=== PATIENT | female | born 1960 | race African-American/Black ===

== ENCOUNTER → 2016-06-19 | Outpatient (CLI) | payer OTHER ==
--- NOTE | 2016-06-20 09:49 | MM ---
Reason for exam: screening (asymptomatic). Last mammogram was performed 1 year ago. History: Patient is postmenopausal. Benign ultrasound-guided core biopsy of the left breast, November 06, 1998. Excisional biopsy of the left breast. Physical Findings: A clinical breast exam by your physician is recommended on an annual basis and results should be correlated with mammographic findings. MG Screening Mammo w CAD Bilateral CC and MLO view(s) were taken. Prior study comparison: June 05, 2015, bilateral MG screening mammo w CAD. April 06, 2014, bilateral MG screening mammo w CAD. There are scattered fibroglandular densities. There is chronic nodularity in the left breast. No significant changes when compared with prior studies. ASSESSMENT: Benign, BI-RAD 2 RECOMMENDATION: Routine screening mammogram of both breasts in 1 year.
== END | disposition home or self-care (01) ==
LOC: RADMAMWWP 16:35
PROVIDERS: ATTEND Family Medicine
DX: Z12.31 Encounter for screening mammogram for malignant neoplasm of breast (principal)

== ENCOUNTER → 2016-07-24 | Outpatient (CLI) | payer OTHER ==
[2016-07-24 11:46] LABS: Calcium 9.7 mg/dL (8.4-10.2); Magnesium 2.3 mg/dL (1.6-2.3); Phosphorous 4.5 mg/dL (2.5-4.5); Potassium 4.4 mmol/L (3.5-5.1); Total Bilirubin 0.6 mg/dL (0.2-1.3); Total Protein 7.7 g/dL (6.3-8.2)
--- NOTE | 2016-07-24 11:58 | XR ---
EXAMINATION TYPE: XR abdomen acute w cxr DATE OF EXAM: 07/24/2016 11:41 AM COMPARISON: Chest x-ray July 25, 2015. HISTORY: Nausea for days. TECHNIQUE: Single view of the chest and 2 views of the abdomen are submitted. FINDINGS: Single view of the chest fails demonstrate evidence for acute pulmonary disease. Linear scarring lef t mid lung laterally is redemonstrated. Surgical changes right humeral head level with metallic ancho rs is again seen. Cardiac silhouette size is stable and upper limits of normal. There is no evidence for pneumoperitoneum. The bowel gas pattern is unremarkable as there is air throughout nondilated small and large bowel. G as is seen in nondistended stomach. No suspicious air fluid levels. No unusual calcifications. Scattered pelvic phleboliths are present. Surgical clips and pelvis are n oted. Fusion cages lumbosacral junction are noted. IMPRESSION: 1. No acute pulmonary process. 2. Overall nonobstructive bowel gas pattern.
== END | disposition home or self-care (01) ==
LOC: LABWHC1 10:55
PROVIDERS: ATTEND Internal Medicine
DX: R11.0 Nausea (principal); N18.2 Chronic kidney disease, stage 2 (mild); D64.9 Anemia, unspecified; E83.39 Other disorders of phosphorus metabolism; E55.9 Vitamin D deficiency, unspecified
CPT/HCPCS: 36415; 74022; 80053; 82306; 83735; 83970; 84100

== ENCOUNTER → 2016-08-01 | Outpatient (CLI) | payer OTHER ==
--- NOTE | 2016-08-01 13:36 | CT ---
EXAMINATION TYPE: CT brain wo con DATE OF EXAM: 08/01/2016 12:48 PM COMPARISON: Prior head CT dated 21 March 2014 HISTORY: Headache CT DLP: 1036.00 mGycm Automated exposure control for dose reduction was used. Helical acquisition through the brain FINDINGS: There is no acute intracranial hemorrhage, mass effect, or midline shift identified. The ventricles and sulci are within normal limits in size. The globes are intact and the visualized sinuses are jacky ar. IMPRESSION: No acute intracranial hemorrhage, mass effect, or midline shift is seen.
--- NOTE | 2016-08-01 14:31 | CT ---
EXAMINATION TYPE: CT chest wo con DATE OF EXAM: 08/01/2016 12:57 PM COMPARISON: CT chest without contrast HISTORY: Pulmonary scarring, tobacco use Helical acquisition through the chest without contrast Correlation to chest x-ray 24 July 2016 There is no evident lung mass. Strand-like densities at the lung bases may reflect some atelectasis o r scarring, there is a calcification present posterior to the heart on the left suggestive of a granu casper. Subcentimeter nodular density on axial image 21 as well as subpleural nodule right middle lobe image 32 anterolaterally, right lower lobe image 41 and right upper lobe image 22 are all only approx imately 3 mm in size and not calcified. There is no endobronchial lesion. Bandlike area of increased attenuation corresponding to chest x-ray abnormality is present in the left upper lobe and also in th e right upper lobe there is pleural thickening noted along the fissure laterally. The ascending aorta is borderline enlarged at 3.9 cm. No mediastinal, axillary, or hilar adenopathy. No endobronchial le natalie, pleural or pericardial effusion. Hiatal hernia noted. Degenerative disc changes in the visualiz ed spine. Upper abdomen unremarkable. IMPRESSION: Findings likely represent old granulomatous disease with some areas of scarring. Consider follow-up to assess for stability of nodules. Ascending aorta is borderline dilated. Follow-up dea sebastian.
== END | disposition home or self-care (01) ==
LOC: RADCTMAIN 12:24
PROVIDERS: ATTEND Family Medicine
DX: R51 Headache (principal); J98.4 Other disorders of lung
CPT/HCPCS: 70450; 71250

== ENCOUNTER → 2016-08-07 | Outpatient (CLI) | payer OTHER ==
--- NOTE | 2016-08-07 14:48 | MR ---
EXAMINATION TYPE: MR shoulder RT wo con DATE OF EXAM: 08/07/2016 12:40 PM COMPARISON: NONE HISTORY: Rt. shoulder pain TECHNIQUE: Multiplanar, multisequence imaging of the right shoulder is performed without contrast. FINDINGS: There is motion on the exam. Postop changes noted, susceptibility artifact may obscure deta il Rotator Cuff: Is attenuated, abnormal increased signal present within the tendon compatible with tend inopathy and likely there is at least a partial full-thickness tear. There may be some calcification present within the tendon, correlate with plain film. Acromioclavicular Joint: Postop changes are present. Glenohumeral Joint: There is marrow edema in the subchondral location of the humerus. Serpiginous low signal at the surrounding area could represent nondisplaced fracture, osteonecrosis. Labrum: The labrum appears grossly intact given limitation of non-arthrogram study. Biceps Tendon: Not well seen in its entirety Bone marrow signal: Suspect marrow edema as described, some marginal spurring suggestive of some oste oarthritic change Other: No sizable joint effusion. IMPRESSION: There are limitations to the exam. Postop change. Suspect at least a partial full-thickness tear of t he rotator cuff, abnormal signal within the humeral head at the glenohumeral joint, there is associat ed arthropathy as described. Additional findings above.
== END | disposition home or self-care (01) ==
LOC: RADMRIMAIN 11:05
PROVIDERS: ATTEND Orthopaedic Surgery Orthopaedic Surgery of the Spine
DX: M12.811 Other specific arthropathies, not elsewhere classified, right shoulder (principal); Z98.890 Other specified postprocedural states

== ENCOUNTER → 2016-10-08 | Outpatient (CLI) | payer OTHER ==
[2016-10-08 13:31] LABS: EKG EKG PERFORMED
[2016-10-08 14:32] LABS: Basophils % (A) 0 %; CH 29.8; CHCM 32.2; Eosinophils # (A) 0.1 k/uL (0-0.7); Eosinophils % (A) 2 %; HCT 50.3 % (34.0-46.0); HGB 16.7 gm/dL (11.4-16.0); Luc # (Auto) 0.14; Luc % (Auto) 2; Lymphocytes # (A) 2.2 k/uL (1.0-4.8); Lymphocytes % (A) 33 %; MCH 30.9 pg (25.0-35.0); MCHC 33.2 g/dL (31.0-37.0); Mean Platelet Volume 8.4; Monocytes # (A) 0.4 k/uL (0-1.0); Monocytes % (A) 6 %; Neutrophils # (A) 3.8 k/uL (1.3-7.7); Neutrophils % (A) 57 %; RBC 5.41 m/uL (3.80-5.40); RDW 14.8 % (11.5-15.5); WBC 6.7 k/uL (3.8-10.6); WBC (Perox) 6.84
[2016-10-08 14:48] LABS: Anion Gap 10 mmol/L; Blood Urea Nitrogen 30 mg/dL (7-17); Calcium 9.6 mg/dL (8.4-10.2); Carbon Dioxide 27 mmol/L (22-30); Chloride 106 mmol/L (98-107); Glucose 219 mg/dL (74-99); Non-African American GFR(MDRD) 33 (>60 ml/min/1.73 sqM); Potassium 4.7 mmol/L (3.5-5.1); Sodium 143 mmol/L (137-145)
== END | disposition home or self-care (01) ==
LOC: LABWHC1 13:15
PROVIDERS: ATTEND Orthopaedic Surgery
DX: Z01.812 Encounter for preprocedural laboratory examination (principal); D61.3 Idiopathic aplastic anemia; I49.49 Other premature depolarization
CPT/HCPCS: 36415; 80048; 85025; 93005

== ENCOUNTER → 2016-11-07 | Outpatient (CLI) | payer OTHER ==
[2016-11-07 13:12] LABS: CHCM 31.4; HCT 47.5 % (34.0-46.0); HDW 2.78; Hypochromasia Slight; MCH 30.5 pg (25.0-35.0); MCHC 31.6 g/dL (31.0-37.0); MCV 96.4 fL (80.0-100.0); Mean Platelet Volume 7.8; RBC 4.93 m/uL (3.80-5.40); RDW 15.2 % (11.5-15.5); WBC 6.9 k/uL (3.8-10.6)
[2016-11-07 13:59] LABS: Calcium 9.3 mg/dL (8.4-10.2); Magnesium 2.3 mg/dL (1.6-2.3); Phosphorous 3.7 mg/dL (2.5-4.5); Potassium 4.4 mmol/L (3.5-5.1); Total Bilirubin 0.3 mg/dL (0.2-1.3); Total Protein 6.4 g/dL (6.3-8.2); Uric Acid 5.7 mg/dL (3.7-7.4)
[2016-11-07 14:08] LABS: % Iron Saturation 12.3 % (20-50)
== END | disposition home or self-care (01) ==
LOC: LABWHC1 12:25
PROVIDERS: ATTEND Internal Medicine
DX: N25.81 Secondary hyperparathyroidism of renal origin (principal); D50.9 Iron deficiency anemia, unspecified; E55.9 Vitamin D deficiency, unspecified; M10.9 Gout, unspecified; N18.2 Chronic kidney disease, stage 2 (mild)
CPT/HCPCS: 36415; 80053; 82043; 82306; 82728; 83540; 83550; 83735; 83970; 84100; 84550; 85027

== ENCOUNTER 2017-05-11 07:19 | Day surgery (SDC) | payer OTHER ==
[2017-05-05 11:24] VITALS: BMI 37.1
[~2017-05-11 07:19] MED LIST: LACTATED RINGERS 1,000 ML IV SCH; LIDOCAINE 1% 20 ML VIAL (10MG/ML) FOR IV START INTRADERMA PRN
[2017-05-11 07:35] VITALS: TEMP 97.7
[2017-05-11 07:39] LABS: Glucose,Whole Blood 141 mg/dL (75-99)
[2017-05-11] MEDS ORDERED: LIDOCAINE 1% INJ 10MG/ML (20 ML MDV) ONE (08:46)
[2017-05-11] MEDS ORDERED: PROPOFOL 10 MG/ML 20 ML VIAL IV ONE (08:46)
[2017-05-11 09:28] VITALS: RESP 16
--- NOTE | 2017-05-11 09:34 | P.PCN ---
Date of Procedure: 05/11/17 Procedure(s) Performed: procedures notes: 1. Esophagogastroduodenoscopy and biopsy. 2. Colonoscopy. Preoperative diagnosis: Nausea and history of polyps. Postoperative diagnosis: 1. Small sliding hiatal hernia with possible Kerry esophagitis. 2. Mild gastritis and duodenitis. 3. Diverticulosis of the colon with poor preparation but no obvious polyps or tumors. Preparation: HalfLytely prep. Sedation: Was provided by anesthesia. Brief clinical history: The patient is a 57-year-old female with history of diabetes mellitus and reflux disease who has been having issues with nausea for the last several months. In addition, she has history of colon polyps and her last exam was in 2012. This evaluation is to assess for esophagitis, complicated reflux disease or colon neoplasia or other pathology. Procedure: With the patient on her left lateral decubitus position and after informed consent and adequate sedation, I passed the Olympus-GIF 160 video upper endoscope through the cricopharyngeus down the esophagus. GE junction was around 40 cm from the incisors and there was a small sliding hiatal hernia. The esophagus showed minimal erythema and occasional small sticky white exudate raising the possibility of Kerry esophagitis. No ulcers, erosions, strictures or Siddiqui's esophagus. The endoscope was then passed into the stomach which was insufflated with air and inspected in detail including the retroflex view in the cardia. There was some mottling and erythema in the antrum but no ulcers or erosions. Pyloric channel did not show any ulcers. Duodenal bulb, post bulbar area and descending duodenum showed minimal erythema and submucosal hemorrhage but no ulcers, erosions or bleeding. I obtained biopsies from the duodenum, antrum and esophagus then the endoscope was withdrawn and I proceeded with the colonoscopy. Perianal area did not show any fissures or fistulas. There were no masses felt on digital rectal examination. The Olympus CFQ 160L video colonoscope was then inserted in the rectum in the usual fashion and advanced to the cecum. Unfortunately, the preparation was poor and there was fecal material and fecal debris present even on the right side and cecum. Where visualized, the mucosa appeared healthy. There were no obvious polyps or tumors. Multiple diverticular orifices were seen scattered along the length of the bowel, mostly small in size with no evidence of acute diverticulitis or strictures. I retroflexed the endoscope in the rectum before the endoscope was withdrawn. The patient tolerated the procedure well. Plan: The patient was reassured. Will await biopsy results. In light of her poor preparation, I am recommending repeat colonoscopy in 2-3 years after 2-day preparation. She will follow-up with you as planned.
[2017-05-11 10:01] VITALS: BP 177/111; PULSE 55
== END 2017-05-11 10:24 | disposition home or self-care (01) ==
LOC: ORWHC2ENDO 07:19
DX: Z12.11 Encounter for screening for malignant neoplasm of colon (principal); K29.50 Unspecified chronic gastritis without bleeding; K20.0 Eosinophilic esophagitis; K44.9 Diaphragmatic hernia without obstruction or gangrene; K29.80 Duodenitis without bleeding; K57.30 Diverticulosis of large intestine without perforation or abscess without bleeding; Z86.010 Personal history of colon polyps; J44.9 Chronic obstructive pulmonary disease, unspecified; I10 Essential (primary) hypertension; E11.9 Type 2 diabetes mellitus without complications; E78.5 Hyperlipidemia, unspecified; M19.90 Unspecified osteoarthritis, unspecified site; K21.9 Gastro-esophageal reflux disease without esophagitis; Z72.0 Tobacco use; Z79.4 Long term (current) use of insulin; Z79.891 Long term (current) use of opiate analgesic; Z79.899 Other long term (current) drug therapy; Z88.0 Allergy status to penicillin; Z88.8 Allergy status to other drugs, medicaments and biological substances
CPT/HCPCS: 88305; 88312; 88342; 43239; J2001; J2704; G0105

== ENCOUNTER 2017-07-01 13:25 | Emergency (ER) | payer OTHER ==
[2017-07-01 13:39] VITALS: RESP 18
[2017-07-01] MEDS ORDERED: SODIUM CHLORIDE 0.9% 1,000 ML IV ONE (14:13)
[2017-07-01] MEDS ORDERED: METOCLOPRAMIDE 5 MG/ML 2 ML VIAL IVP STA (14:13)
[2017-07-01] MEDS ORDERED: diphenhydrAMINE 50 MG/ML 1 ML VIAL IVP STA (14:13)
--- NOTE | 2017-07-01 14:21 | ED ---
Headache HPI - General Chief Complaint: Headache Stated Complaint: Headache Time Seen by Provider: 07/01/17 13:58 Mode of arrival: ambulatory Limitations: no limitations - History of Present Illness Initial Comments: Is a 49-year-old female with a history of diabetes, hypertension who presents him in [facility] for headache. She states that the headache is bifrontal and radiates to the posterior head. She states is been present for about a month. She states that she's been trying to take her pain medications at home however this has not improved her symptoms. She did take some of her friend's Excedrin which seemed to improve the headache but then it just came back. She admits to some photophobia however no phonophobia. She denies any focal weakness in her extremities however does admit to some generalized fatigue. She states about 4 or 5 days ago she went to her doctor's office and when she came home she got very dizzy and fell to the ground. She states that she hit the back of her head and this made her headache worse. She states that she did not lose consciousness or have a syncopal event. She states that she just got dizzy at the time she denies any chest pain or shortness of breath. No vomiting but does admit to intermittent nausea. States that she does not have a history of migraines however looking back in the chart she does have a visit for a migraine headache in the past. - Related Data Home Medications Medication Instructions Recorded Confirmed Gabapentin [Neurontin] 400 mg PO BID 05/21/15 07/01/17 HYDROcodone/APAP 10-325MG [[place] 1 tab PO Q6HR PRN 05/21/15 07/01/17 10-325] amLODIPine [Norvasc] 10 mg PO DAILY 05/21/15 07/01/17 glipiZIDE [Glucotrol] 5 mg PO AC-BID 05/21/15 07/01/17 Atorvastatin [Lipitor] 40 mg PO HS 11/22/15 07/01/17 Lisinopril 40 mg PO DAILY 05/05/17 07/01/17 Metoprolol Tartrate [Lopressor] 50 mg PO BID 05/05/17 07/01/17 Ranitidine HCl 150 mg PO BID 05/05/17 07/01/17 Albuterol Inhaler [Ventolin Hfa 1 - 2 puff INHALATION RT-Q6H PRN 07/01/17 Inhaler] Previous Rx's Medication Instructions Recorded Butalb/Acetaminophen/Caffeine 1 - 2 cap PO Q4HR #10 cap 07/01/17 [Fioricet 50-300-40 mg Capsule] Allergies Allergy/AdvReac Type Severity Reaction Status Date / Time amoxicillin [Amoxicillin] Allergy Rash/Hives Verified 07/01/17 14:25 latanoprost AdvReac blurry Verified 07/01/17 14:25 vision steroids AdvReac affected Uncoded 07/01/17 13:35 eyes Review of Systems ROS Statement: Those systems with pertinent positive or pertinent negative responses have been documented in the HPI. ROS Other: All systems not noted in ROS Statement are negative. Past Medical History Past Medical History: COPD, Diabetes Mellitus, Eye Disorder, GERD/Reflux, Hyperlipidemia, Hypertension, Osteoarthritis (OA) Additional Past Medical History / Comment(s): spondolysis, , blurry vision & eye problems ?related to diabetes History of Any Multi-Drug Resistant Organisms: None Reported Past Surgical History: Back Surgery, Hysterectomy, Orthopedic Surgery Additional Past Surgical History / Comment(s): RT shoulder surgery, LT arthroscopy knee. COLONOSCOPY. BACK SX X 2 Past Anesthesia/Blood Transfusion Reactions: No Reported Reaction Past Psychological History: No Psychological Hx Reported Smoking Status: Former smoker Past Alcohol Use History: Occasional Past Drug Use History: None Reported - Past Family History Mother Family Medical History: No Reported History General Exam - General Exam Comments Initial Comments: Constitutional: Awake alert Appears comfortable Head: Normocephalic atraumatic , no obvious signs of head trauma Eyes: no conjunctival injection No scleral icterus EOMI, pupils are 3 mm and reactive bilaterally Neck: No JVD Supple, there is bilateral paraspinal tenderness without midline tenderness Heart: Regular rate rhythm normal S1-S2 no murmurs Lungs: Clear to auscultation bilaterally No wheezing No rales Abdomen: Soft nondistended nontender Extremities: Non edematous DP pulses intact Radial pulses intact Neuro: A&Ox3, cranial nerves II through XII are grossly intact, 5 out of 5 strength in upper and lower extremities bilaterally, sensation intact in all extremities, patient was able to get up and ambulate with normal gait No focal neurologic deficits Psych: Appropriate mood and affect Limitations: no limitations Course Vital Signs 07/01/17 07/01/17 13:35 16:43 Temperature 99.2 F 98.1 F Pulse Rate 92 83 Respiratory 18 18 Rate Blood Pressure 174/101 156/93 O2 Sat by Pulse 95 93 L Oximetry Medical Decision Making - Medical Decision Making This is a 57-year-old female presents emergency department for a headache for the last month. The patient had no focal neurologic deficits on examination. CT the head and neck were negative. Patient felt improved after medications. Going to send her home with a few Fioricet that she can use when necessary. She is to follow-up with her primary doctor. If she has worsening or changing symptoms she can return emergency Department. All questions were answered. - Lab Data Result diagrams: 07/01/17 14:41 07/01/17 14:41 Lab Results 07/01/17 07/01/17 07/01/17 Range/Units 14:41 14:41 16:00 WBC 4.7 (3.8-10.6) k/uL RBC 5.38 (3.80-5.40) m/uL Hgb 15.3 (11.4-16.0) gm/dL Hct 50.9 H (34.0-46.0) % MCV 94.7 (80.0-100.0) fL MCH 28.5 (25.0-35.0) pg MCHC 30.1 L (31.0-37.0) g/dL RDW 16.2 H (11.5-15.5) % Plt Count 298 (150-450) k/uL Neutrophils % 63 % Lymphocytes % 28 % Monocytes % 6 % Eosinophils % 2 % Basophils % 0 % Neutrophils # 2.9 (1.3-7.7) k/uL Lymphocytes # 1.3 (1.0-4.8) k/uL Monocytes # 0.3 (0-1.0) k/uL Eosinophils # 0.1 (0-0.7) k/uL Basophils # 0.0 (0-0.2) k/uL Hypochromasia Marked Poikilocytosis Moderate Anisocytosis Slight Sodium 139 (137-145) mmol/L Potassium 5.0 (3.5-5.1) mmol/L Chloride 102 (98-107) mmol/L Carbon Dioxide 31 H (22-30) mmol/L Anion Gap 6 mmol/L BUN 13 (7-17) mg/dL Creatinine 0.98 (0.52-1.04) mg/dL Est GFR (MDRD) Af Amer >60 (>60 ml/min/1.73 sqM) Est GFR (MDRD) Non-Af 58 (>60 ml/min/1.73 sqM) Glucose 332 H (74-99) mg/dL Calcium 9.2 (8.4-10.2) mg/dL Magnesium 1.9 (1.6-2.3) mg/dL Total Bilirubin 0.8 (0.2-1.3) mg/dL AST 28 (14-36) U/L ALT 33 (9-52) U/L Alkaline Phosphatase 112 (38-126) U/L Total Protein 6.5 (6.3-8.2) g/dL Albumin 3.5 (3.5-5.0) g/dL Urine Color Yellow Urine Appearance Clear (Clear) Urine pH 7.0 (5.0-8.0) Ur Specific [place] 1.021 (1.001-1.035) Urine Protein 3+ H (Negative) Urine Glucose (UA) 4+ H (Negative) Urine Ketones Negative (Negative) Urine Blood Negative (Negative) Urine Nitrite Negative (Negative) Urine Bilirubin Negative (Negative) Urine Urobilinogen <2.0 (<2.0) mg/dL Ur Leukocyte Esterase Negative (Negative) Urine RBC 1 (0-5) /hpf Urine WBC 8 H (0-5) /hpf Ur Squamous Epith Cells 2 (0-4) /hpf Hyaline Casts 4 H (0-2) /lpf Urine Mucus Rare H (None) /hpf Disposition Clinical Impression: Headache Disposition: HOME SELF-CARE Condition: Stable Instructions: Acute Headache (ED) Prescriptions: Butalb/Acetaminophen/Caffeine [Fioricet 50-300-40 mg Capsule] 1 - 2 cap PO Q4HR #10 cap Referrals: Leeanne Ocampo MD [Primary Care Provider] - 1-2 days
[2017-07-01 15:03] LABS: ALT 33 U/L (9-52); AST 28 U/L (14-36); Albumin 3.5 g/dL (3.5-5.0); Alkaline Phosphatase 112 U/L (38-126); Anion Gap 6 mmol/L; Blood Urea Nitrogen 13 mg/dL (7-17); Calcium 9.2 mg/dL (8.4-10.2); Carbon Dioxide 31 mmol/L (22-30); Chloride 102 mmol/L (98-107); Glucose 332 mg/dL (74-99); Magnesium 1.9 mg/dL (1.6-2.3); Sodium 139 mmol/L (137-145); Total Bilirubin 0.8 mg/dL (0.2-1.3); Total Protein 6.5 g/dL (6.3-8.2)
--- NOTE | 2017-07-01 15:32 | CT ---
EXAMINATION TYPE: CT brain jose m klein DATE OF EXAM: 07/01/2017 COMPARISON: NONE HISTORY: Headache x 1 month. Posterior head injury [address] DLP: 1718 mGycm Automated exposure control for dose reduction was used. TECHNIQUE: CT scan of the head and cervical spine are performed without contrast. FINDINGS: There is no acute intracranial hemorrhage, mass effect, or midline shift identified. The ventricles and sulci are within normal limits in size. The globes are intact and the visualized sin uses are remarkable for inflammatory change in the left maxillary sinus, there is a brian bullosa on the left. Cervical spine is visualized in its entirety from C1 through upper thoracic levels and demonstrates s atisfactory alignment without evidence of acute fracture or dislocation. Prevertebral soft tissue ap pears within normal limits. Degenerative disc changes are noted incidentally, there is loss of yana l cervical lordosis. Loss of disc height present at 4 5 and C5-6. The C1-C2 articulation is unremarka ble. IMPRESSION: 1. There is no acute fracture or dislocation evident in the cervical spine. 2. No acute intracranial hemorrhage, mass effect, or midline shift is seen.
[2017-07-01 15:33] LABS: Anisocytosis Slight; Basophils % (A) 0 %; Eosinophils # (A) 0.1 k/uL (0-0.7); Eosinophils % (A) 2 %; HCT 50.9 % (34.0-46.0); HGB 15.3 gm/dL (11.4-16.0); Hypochromasia Marked; Lymphocytes # (A) 1.3 k/uL (1.0-4.8); Lymphocytes % (A) 28 %; MCH 28.5 pg (25.0-35.0); MCHC 30.1 g/dL (31.0-37.0); MCV 94.7 fL (80.0-100.0); Mean Platelet Volume 8.2; Monocytes # (A) 0.3 k/uL (0-1.0); Monocytes % (A) 6 %; Neutrophils # (A) 2.9 k/uL (1.3-7.7); Neutrophils % (A) 63 %; Platelet Count 298 k/uL (150-450); Poikilocytosis Moderate; RBC 5.38 m/uL (3.80-5.40); RDW 16.2 % (11.5-15.5); WBC 4.7 k/uL (3.8-10.6)
[2017-07-01] MEDS ORDERED: KETOROLAC 30 MG/ML 1 ML VIAL IVP STA (15:41)
[2017-07-01 16:14] LABS: Appearance,Urine Clear (Clear); Bilirubin,Urine Negative (Negative); Blood,Urine Negative (Negative); Color,Urine Yellow; Glucose,Urine (UA) 4+ (Negative); Hyaline Casts,Urine 4 /lpf (0-2); Ketones,Urine Negative (Negative); Leukocyte Esterase,Urine Negative (Negative); Mucus,Urine Rare /hpf; Nitrite,Urine Negative (Negative); Protein,Urine 3+ (Negative); RBC,Urine 1 /hpf (0-5); Specific Gravity,Urine 1.021 (1.001-1.035); Squamous Epithelial Cell,Urine 2 /hpf (0-4); Urobilinogen,Urine <2.0 mg/dL (<2.0); WBC,Urine 8 /hpf (0-5)
[2017-07-01 16:44] VITALS: BP 156/93; PULSE 83; TEMP 98.1
== END 2017-07-01 16:43 | disposition home or self-care (01) ==
LOC: EC 13:25
DX: R51 Headache (principal); E11.9 Type 2 diabetes mellitus without complications; K21.9 Gastro-esophageal reflux disease without esophagitis; E78.5 Hyperlipidemia, unspecified; I10 Essential (primary) hypertension; Z87.891 Personal history of nicotine dependence; Z88.0 Allergy status to penicillin; Z88.8 Allergy status to other drugs, medicaments and biological substances; Z79.84 Long term (current) use of oral hypoglycemic drugs; Z79.899 Other long term (current) drug therapy
CPT/HCPCS: 36415; 80053; 83735; 85025; 81001; 72125; 70450; 99284; 96374; 96375 ×2; 96361; J1200; J2765; J1885

== ENCOUNTER → 2017-10-02 | Outpatient (CLI) | payer OTHER ==
--- NOTE | 2017-10-02 15:48 | MR ---
EXAMINATION TYPE: MR brain wo con DATE OF EXAM: 10/02/2017 COMPARISON: Prior MRI brain June 02, 2014. CT brain July 01, 2017. HISTORY: Chronic intractable headache per order with left-sided hearing loss per patient. TECHNIQUE: Multiplanar, multisequence imaging of the brain and brainstem is performed without IV cont rast. FINDINGS: Diffusion weighted images demonstrate no evidence of a recent infarct or other diffusion abnormality. There is no worrisome extra-axial fluid collection. The ventricular system and cisternal spaces are normal in size and appearance. The brain volume is age appropriate. There are scattered foci of T2 h yperintensity seen throughout the periventricular, deep, and superficial white matter. Approximately 40-50 scattered small lesions are now identified. There is definitive progression from 2014 study not ed. Cerebellar lesions are felt artifactual on FLAIR images. Midline structures demonstrate normal morphology. The craniocervical junction appears within normal limits. Normal vascular flow voids are present. There is persistent mild to moderate mucosal thickeni ng in the left maxillary sinus redemonstrated otherwise paranasal sinuses are clear. IMPRESSION: Fairly moderate nonspecific white matter changes have progressed since 2014 MRI. Differen tial includes sequela of ischemic change related to product of migraine headaches. Other etiologies a re not excluded. Stable chronic left maxillary sinus disease. No additional new findings identified.
== END ==
LOC: RADMRIMAIN 14:49
PROVIDERS: ATTEND Family Medicine
DX: R90.82 White matter disease, unspecified (principal); J32.0 Chronic maxillary sinusitis
CPT/HCPCS: 70551

== ENCOUNTER → 2017-12-14 | Outpatient (CLI) | payer OTHER ==
[2017-12-14 18:37] LABS: Total Protein,CSF 42 mg/dL (12-60)
[2017-12-14 18:57] LABS: Appearance,CSF Clear; CSF Tube Number 4
[2017-12-14 20:08] LABS: Red Blood Cell,CSF 0 u/L (0-10)
[2017-12-14 20:09] LABS: Nucleated Cells, CSF 3 u/L (0-5)
== END | disposition home or self-care (01) ==
LOC: LABWHC1 12:26
PROVIDERS: ATTEND Psychiatry & Neurology Pain Medicine
DX: R90.82 White matter disease, unspecified (principal)
CPT/HCPCS: 36415; 82040; 82042; 82784; 83873; 83916; 84157; 87476; 89050

== ENCOUNTER → 2018-01-14 | Outpatient (CLI) | payer OTHER ==
--- NOTE | 2018-01-15 08:47 | MR ---
MRI CERVICAL SPINE: CLINICAL HISTORY: Cervicalgia per order. Headache with neck pain for one year causing pain or weaknes s into both arms per patient. TECHNIQUE: Multiplanar, multisequence imaging of the cervical spine is performed without IV contrast. COMPARISON: MRI cervical spine March 17, 2016. CT cervical spine July 01, 2017. FINDINGS: Exam noted suboptimal due to patient motion despite attempted repeated sequences. Coronal images redemonstrates slight dextroconvex scoliotic curvature centered near cervicothoracic junction. Sagittal images of the cervical spine show the craniocervical junction to remain within normal limit s. The cervical and upper thoracic spinal cord is normal in course, caliber, and signal. Vertebral alignment is stable and straightened. The vertebral body heights are normal. Mild disc space narrow ing C4-C5 and C5-C6 levels are seen. Posterior disc herniation C4-C5 through C6-C7 levels are redemon strated on sagittal images without significant progression. The bone marrow signal intensity is withi n normal limits. Mild multilevel anterior spurring is redemonstrated. Axial images show the C2-C3 and C3-C4 levels to remain within normal limits. Axial images at C4-C5 level redemonstrate broad-based posterior disc protrusion effacing anterior the subhash sac and causing asymmetric moderate left and mild right-sided neural foraminal narrowing. No sign ificant change from prior studies. Axial images at C5-C6 level show broad disc bulge with right paracentral disc protrusion component ef facing anterior thecal sac and causing [id number] bilateral neural foraminal narrowing. No sign ificant change from prior studies. Axial images at C6-C7 level redemonstrated right paracentral disc protrusion effacing anterior latera l thecal sac, bilateral neural foramina are patent. No significant change from prior. Axial images at C7-T1 level remain within normal limits. IMPRESSION: Reversal of normal cervical curvature with multilevel degenerative changes C4-C5 through C6-C7 levels redemonstrated. No significant change from prior MRI or CT.
--- NOTE | 2018-01-15 09:37 | MR ---
EXAMINATION TYPE: MR lumbar spine wo/w con DATE OF EXAM: 01/14/2018 COMPARISON: NONE HISTORY: Lumbago per order. Pain for one year into left lower extremity per patient with history of p rior surgery. TECHNIQUE: Multiplanar, multisequence images of the lumbar spine is performed without and with IV contrast, util izing 10 mL intravenous Gadavist FINDINGS: Sagittal images of the lumbar spine show vertebral body heights and alignment to appear sat isfactory. There is artifact from disc material L5-S1 level. Superior to this the intervertebral disc s demonstrate normal heights and hydration. No suspicious posterior disc herniations are evident. Pos terior scar tissue lower lumbar spine is noted. The conus medullaris is slightly lower in position en ding superior L2 level without abnormal signal. Cannot exclude focus of abnormal signal inferior T11 level spinal cord sagittal image 8. No suspicious clumping of lumbosacral nerve roots is present. The bone marrow signal intensity is within normal limits. No significant spurring is present. Tiny poste rior disc herniation effaces anterior thecal sac at T11-T12 level sagittal image 8. No suspicious pos tcontrast enhancement is noted. Axial images show the T12-L1, L1-L2, L2-L3, and L3-L4 levels all to appear within normal limits. Axial images at the L4-L5 level show moderate right greater than left facet arthropathy and ligamentu m flavum hypertrophy effacing posterior lateral thecal sac prominent axial image 10 and sagittal imag e 8. No disc herniation is present. There is mild to moderate left greater than right neural foramina l narrowing due to facet arthropathy. Axial images at L5-S1 level show bilateral laminectomy defects. Spinous process remains present. Enha ncing surrounding scar tissue around spinal canal is noted. Spinal canal is grossly preserved. Artifa ct from disc spacer is seen. Bilateral neural foramina are felt patent. No suspicious retroperitoneal findings are seen. IMPRESSION: Postsurgical change L5-S1 level with satisfactory alignment. Prominent facet arthropathy bilaterally at L4-L5 level causes posterior spinal canal effacement and bilateral neural foraminal na rrowing.
== END | disposition home or self-care (01) ==
LOC: RADMRIMAIN 11:02
PROVIDERS: ATTEND Psychiatry & Neurology Neurology
DX: M99.73 Connective tissue and disc stenosis of intervertebral foramina of lumbar region (principal); M46.96 Unspecified inflammatory spondylopathy, lumbar region; M47.812 Spondylosis without myelopathy or radiculopathy, cervical region; Z98.890 Other specified postprocedural states
CPT/HCPCS: 82565; 84520; 72141; 72158; 36415; A9581

== ENCOUNTER → 2019-04-11 | Outpatient (CLI) | payer OTHER ==
--- NOTE | 2019-04-13 09:22 | MM ---
Reason for exam: screening (asymptomatic). Last mammogram was performed 2 years and 10 months ago. History: Patient is postmenopausal. Benign ultrasound-guided core biopsy of the left breast, November 06, 1998. Excisional biopsy of the left breast. Physical Findings: A clinical breast exam by your physician is recommended on an annual basis and results should be correlated with mammographic findings. MG Screening Mammo w CAD Bilateral CC and MLO view(s) were taken. Prior study comparison: June 19, 2016, bilateral MG screening mammo w CAD. June 05, 2015, bilateral MG screening mammo w CAD. There are scattered fibroglandular densities. There is chronic nodularity in the left breast. No significant changes when compared with prior studies. ASSESSMENT: Benign, BI-RAD 2 RECOMMENDATION: Routine screening mammogram of both breasts in 1 year.
== END | disposition home or self-care (01) ==
LOC: RADMAMWWP 13:20
PROVIDERS: ATTEND Nurse Practitioner
DX: Z12.31 Encounter for screening mammogram for malignant neoplasm of breast (principal)
CPT/HCPCS: 77067

== ENCOUNTER 2020-08-20 16:07 | Emergency (ER) | payer OTHER ==
[2020-08-20 18:09] LABS: Anisocytosis Slight; Basophils % (A) 0 %; Eosinophils % (A) 1 %; HCT 42.1 % (34.0-46.0); HGB 12.5 gm/dL (11.4-16.0); Hypochromasia Marked; Lymphocytes # (A) 1.1 k/uL (1.0-4.8); Lymphocytes % (A) 17 %; MCH 26.1 pg (25.0-35.0); MCHC 29.7 g/dL (31.0-37.0); MCV 87.9 fL (80.0-100.0); Mean Platelet Volume 10.2; Monocytes # (A) 0.3 k/uL (0-1.0); Monocytes % (A) 5 %; Neutrophils # (A) 4.7 k/uL (1.3-7.7); Neutrophils % (A) 76 %; Platelet Count 236 k/uL (150-450); Poikilocytosis Slight; RBC 4.78 m/uL (3.80-5.40); RDW 17.1 % (11.5-15.5); WBC 6.2 k/uL (3.8-10.6)
[2020-08-20] MEDS ORDERED: LABETALOL SYRINGE 5 MG/ML IVP STA ×2 (18:12→19:11)
[2020-08-20 18:13] LABS: C Reactive Protein 15.2 mg/L (<10.0); Calcium 9.2 mg/dL (8.4-10.2); Potassium 4.7 mmol/L (3.5-5.1); Total Bilirubin 0.5 mg/dL (0.2-1.3)
--- NOTE | 2020-08-20 18:16 | ED ---
General Adult HPI - General Source: patient Mode of arrival: wheelchair Limitations: no limitations <Luciana Barber - Last Filed: 08/20/20 18:15> <Panda Randhawa - Last Filed: 08/20/20 19:48> - General Chief complaint: Recheck/Abnormal Lab/Rx Stated complaint: breast/facial/feet swelling Time Seen by Provider: 08/20/20 17:22 - History of Present Illness Initial comments: Patient is a 60-year-old female, with history of COPD, diabetes, hypertension, presenting to the emergency Department with complaints of swelling of her left breast 1 month. She states she was recently hospitalized at [facility] for COPD exacerbation, they did give her IV steroids which typically does make her swell over the swelling of the left breast has been going on before that. She denies any injuries or trauma to the breast. She denies any fever or chills, no drainage and she is aware of. She states that over the past months she feels like it is getting bigger and the weight on her chest sometimes causes her to have shortness of breath. She denies any chest pain or shortness of breath at this time, no other complaints. Upon arrival to the ER, she is afebrile, blood pressure is 488235, she states she has not taken any of her hypertension medications today. (Luciana Barber) - Related Data Home Medications Medication Instructions Recorded Confirmed Gabapentin [Neurontin] 400 mg PO BID 05/21/15 07/01/17 HYDROcodone/APAP 10-325MG [[place] 1 tab PO Q6HR PRN 05/21/15 07/01/17 10-325] amLODIPine [Norvasc] 10 mg PO DAILY 05/21/15 07/01/17 glipiZIDE [Glucotrol] 5 mg PO AC-BID 05/21/15 07/01/17 Atorvastatin [Lipitor] 40 mg PO HS 11/22/15 07/01/17 Metoprolol Tartrate [Lopressor] 50 mg PO BID 05/05/17 07/01/17 Ranitidine HCl 150 mg PO BID 05/05/17 07/01/17 lisinopriL 40 mg PO DAILY 05/05/17 07/01/17 Albuterol Inhaler (Mhu) [Ventolin 1 - 2 puff INHALATION RT-Q6H PRN 07/01/17 07/01/17 Hfa Inhaler] Previous Rx's Medication Instructions Recorded Butalb/Acetaminophen/Caffeine 1 - 2 cap PO Q4HR #10 cap 07/01/17 [Fioricet 50-300-40 mg Capsule] Cephalexin [Keflex] 500 mg PO Q6HR #40 cap 08/20/20 Allergies Allergy/AdvReac Type Severity Reaction Status Date / Time amoxicillin [Amoxicillin] Allergy Rash/Hives Verified 08/20/20 16:13 latanoprost AdvReac blurry Verified 08/20/20 16:13 vision steroids AdvReac affected Uncoded 08/20/20 16:13 eyes Review of Systems ROS Other: All systems not noted in ROS Statement are negative. <Luciana Barber - Last Filed: 08/20/20 18:15> ROS Other: All systems not noted in ROS Statement are negative. <Panda Randhawa - Last Filed: 08/20/20 19:48> ROS Statement: Those systems with pertinent positive or pertinent negative responses have been documented in the HPI. Past Medical History Past Medical History: COPD, Diabetes Mellitus, Eye Disorder, GERD/Reflux, Hyperlipidemia, Hypertension, Osteoarthritis (OA) Additional Past Medical History / Comment(s): spondolysis, , blurry vision & eye problems ?related to diabetes History of Any Multi-Drug Resistant Organisms: None Reported Past Surgical History: Back Surgery, Hysterectomy, Orthopedic Surgery Additional Past Surgical History / Comment(s): RT shoulder surgery, LT arthroscopy knee. COLONOSCOPY. BACK SX X 2 Past Anesthesia/Blood Transfusion Reactions: No Reported Reaction Past Psychological History: No Psychological Hx Reported Smoking Status: Former smoker Past Alcohol Use History: Occasional Past Drug Use History: None Reported - Past Family History Mother Family Medical History: No Reported History <Luciana Barber - Last Filed: 08/20/20 18:15> General Exam Limitations: no limitations <Luciana Barber - Last Filed: 08/20/20 18:15> - General Exam Comments Initial Comments: GENERAL: Patient is well-developed and well-nourished. Patient is nontoxic and in no acute distress. HEAD: Atraumatic, normocephalic. EYES: Pupils equal round and reactive to light, extraocular movements intact, sclera anicteric, conjunctiva are normal. Eyelids were unremarkable. ENT: TMs normal, nares patent, oropharynx clear without exudates. Moist mucous membranes. NECK: Normal range of motion, supple without lymphadenopathy or JVD. LUNGS: Unlabored respirations. Breath sounds clear to auscultation bilaterally and equal. No wheezes rales or rhonchi. HEART: Regular rate and rhythm without murmurs, rubs or gallops. ABDOMEN: Soft, nontender, normoactive bowel sounds. No guarding, no rebound. No masses appreciated. : Deferred MUSCULOSKELETAL: Normal extremities with adequate strength and normal range of motion, no pitting or edema. No clubbing or cyanosis. NEUROLOGICAL: Patient is alert and oriented x 3. Motor and sensory are also intact. Cranial nerves II through XII grossly intact. Symmetrical smile. Normal speech, normal gait. PSYCH: Normal mood, normal affect. SKIN: Warm, Dry, normal turgor, no rashes. Patient has notable swelling and increase in size of her left breast when compared to the right. She is tender along the entire lateral aspect, no visible abscess or sores seen. There is no erythema, there does appear to be some warmth to the area. (Luciana Barber) Course Vital Signs 08/20/20 08/20/20 08/20/20 16:09 18:07 19:17 Temperature 98.8 F Pulse Rate 99 102 H 81 Respiratory 18 20 20 Rate Blood Pressure 204/105 224/137 183/134 O2 Sat by Pulse 95 93 L 86 L Oximetry 08/20/20 19:19 Temperature Pulse Rate Respiratory Rate Blood Pressure O2 Sat by Pulse 95 Oximetry Medical Decision Making - Lab Data Result diagrams: 08/20/20 17:53 08/20/20 17:53 <Luciana Barber - Last Filed: 08/20/20 18:15> - Lab Data Result diagrams: 08/20/20 17:53 08/20/20 17:53 <Panda Randhawa - Last Filed: 08/20/20 19:48> - Medical Decision Making Patient is a 60-year-old female here with for swelling of the left breast 1 month. No fevers, no signs of an abscess or sores. There is noticeable size di fference of the left breast when compared to the right, pain to the lateral aspect. Patient is afebrile on arrival, blood pressure is high at 204/105, she did not take any of her hypertension medications today. (Luciana Barber) Patient was endorsed to me by Mercedez LOZA the patient's ultrasound reveals evidence of cellulitis there is no definite mass. Patient was recommended to have a mammogram after treatment. Patient states he has been getting better on her buttocks but she is almost out. Patient be discharged with Keflex will follow- up with PCP, her surgeon return parameters were discussed patient agrees to plan patient was hypertensive though she did not take her pain medicines or high blood pressure medication. (Panda Randhawa) - Lab Data Lab Results 08/20/20 08/20/20 Range/Units 17:53 17:53 WBC 6.2 (3.8-10.6) k/uL RBC 4.78 (3.80-5.40) m/uL Hgb 12.5 (11.4-16.0) gm/dL Hct 42.1 (34.0-46.0) % MCV 87.9 (80.0-100.0) fL MCH 26.1 (25.0-35.0) pg MCHC 29.7 L (31.0-37.0) g/dL RDW 17.1 H (11.5-15.5) % Plt Count 236 (150-450) k/uL MPV 10.2 Neutrophils % 76 % Lymphocytes % 17 % Monocytes % 5 % Eosinophils % 1 % Basophils % 0 % Neutrophils # 4.7 (1.3-7.7) k/uL Lymphocytes # 1.1 (1.0-4.8) k/uL Monocytes # 0.3 (0-1.0) k/uL Eosinophils # 0.0 (0-0.7) k/uL Basophils # 0.0 (0-0.2) k/uL Hypochromasia Marked Poikilocytosis Slight Anisocytosis Slight ESR 9 (0-20) mm/hr Sodium 143 (137-145) mmol/L Potassium 4.7 (3.5-5.1) mmol/L Chloride 106 (98-107) mmol/L Carbon Dioxide 33 H (22-30) mmol/L Anion Gap 4 mmol/L BUN 28 H (7-17) mg/dL Creatinine 1.69 H (0.52-1.04) mg/dL Est GFR (CKD-EPI)AfAm 37 (>60 ml/min/1.73 sqM) Est GFR (CKD-EPI)NonAf 32 (>60 ml/min/1.73 sqM) Glucose 129 H (74-99) mg/dL Calcium 9.2 (8.4-10.2) mg/dL Total Bilirubin 0.5 (0.2-1.3) mg/dL AST 54 H (14-36) U/L ALT 50 H (4-34) U/L Alkaline Phosphatase 63 (38-126) U/L C-Reactive Protein 15.2 H (<10.0) mg/L Total Protein 7.0 (6.3-8.2) g/dL Albumin 4.0 (3.5-5.0) g/dL Disposition <Luciana Barber - Last Filed: 08/20/20 18:15> Is patient prescribed a controlled substance at d/c from ED?: No Time of Disposition: 19:48 <Panda Randhawa - Last Filed: 08/20/20 19:48> Clinical Impression: Cellulitis of breast, Hypertension Disposition: HOME SELF-CARE Condition: Stable Instructions (If sedation given, give patient instructions): Cellulitis (ED) Additional Instructions: Please return to the Emergency Department if symptoms worsen or any other concerns. Prescriptions: Cephalexin [Keflex] 500 mg PO Q6HR #40 cap Referrals: [facility] [Primary Care Provider] - 1-2 days Beulah Teran MD [STAFF PHYSICIAN] - 1-2 days
[2020-08-20 19:07] LABS: Erythrocyte Sedimentation Rate 9 mm/hr (0-20)
--- NOTE | 2020-08-20 19:20 | USB ---
EXAMINATION TYPE: US breast complete LT DATE OF EXAM: 08/20/2020 COMPARISON: MG CLINICAL HISTORY: pain/swelling. Pain and swelling throughout left breast x 1 month. Hx left breast b iopsy in 1998. Left breast appears very swollen. Scanned left breast complete, retroareolar area, and axillary tail. Anechoic-hypoechoic connective areas seen throughout the left breast. No distinct areas visualized that could be measured at this time within the left breast by ultrasound . Within the left axillary tail, there appears to be a hypoechoic area with hyperechoic center and vasc ular hilum seen measurin.2 x 2.3 x 0.6 cm. IMPRESSION: The findings may represent cellulitis. No definite abscess is seen. Malignancy is not ex cluded. Note: Once acute symptoms resolve, mammographic evaluation is recommended.
[2020-08-20 20:22] VITALS: BP 181/101; PULSE 76; RESP 18; TEMP 98
== END 2020-08-20 20:22 | disposition home or self-care (01) ==
LOC: EC 16:07
DX: N61.0 Mastitis without abscess (principal); I10 Essential (primary) hypertension; E11.9 Type 2 diabetes mellitus without complications; E78.5 Hyperlipidemia, unspecified; J44.1 Chronic obstructive pulmonary disease with (acute) exacerbation; K21.9 Gastro-esophageal reflux disease without esophagitis; Z79.84 Long term (current) use of oral hypoglycemic drugs; Z79.899 Other long term (current) drug therapy; Z88.0 Allergy status to penicillin; Z88.8 Allergy status to other drugs, medicaments and biological substances; Z87.891 Personal history of nicotine dependence
CPT/HCPCS: 36415; 80053; 85025; 85652; 86140; 96374; 96376; 99284

== ENCOUNTER 2020-08-23 22:32 | Inpatient (IN) | payer OTHER ==
[2020-08-23] MEDS ORDERED: ALBUTEROL NEBULIZED 2.5 MG/3 ML INHALATION STA (23:09)
--- NOTE | 2020-08-23 23:17 | ED ---
SOB HPI - General Chief Complaint: Shortness of Breath Stated Complaint: SOB Time Seen by Provider: 08/23/20 22:46 Source: patient, EMS Mode of arrival: EMS Limitations: no limitations - History of Present Illness Initial Comments: This patient is a 60-year-old woman who presents to have evaluation for dyspnea and right leg swelling. The patient states that she had been seen at [facility] and actually had been admitted in the hospital from August 06 to the . She states that she had been told she had asthma and COPD. She was discharged with albuterol, Singulair, a steroid and also antibiotics for suspected left mastitis. The patient states that while she was in the hospital she received IV fluid and steroids and it caused both of her legs to swell, and she continues to have pain and swelling of the right leg. Patient denies change in her cough. No fever or chills. No chest pain, other than related to the suspected left mastitis. MD Complaint: shortness of breath -: days(s) Severity scale (1-10): 0 Consistency: constant Improves With: nothing Worsens With: nothing Known History Of: COPD, asthma Associated Symptoms: cough Treatments Prior to Arrival: bronchodilator, other - Related Data Home Oxygen Therapy: No Home Medications Medication Instructions Recorded Confirmed HYDROcodone/APAP 10-325MG [[place] 1 tab PO Q6HR PRN 05/21/15 08/24/20 10-325] lisinopriL 40 mg PO DAILY 05/05/17 08/24/20 Albuterol Sulfate [Proair Hfa] 1 - 2 puff INHALATION RT-Q6H PRN 08/24/20 08/24/20 Baclofen 10 mg PO BID 08/24/20 08/24/20 Ergocalciferol [Vitamin D2 (1250 1,250 mcg PO Q7D 08/24/20 08/24/20 Mcg = 44719 Iu)] Fenofibrate 160 mg PO DAILY 08/24/20 08/24/20 INSULIN LISPRO (humaLOG) [humaLOG] See Protocol SQ AC-TID 08/24/20 08/24/20 Insulin Glargine [Lantus] See Protocol SQ HS 08/24/20 08/24/20 Loratadine [Claritin] 10 mg PO DAILY 08/24/20 08/24/20 Losartan Potassium 100 mg PO DAILY 08/24/20 08/24/20 Montelukast [Singulair] 10 mg PO HS 08/24/20 08/24/20 Nortriptyline [Pamelor] 25 mg PO DAILY 08/24/20 08/24/20 Pioglitazone [Actos] 30 mg PO DAILY 08/24/20 08/24/20 Polyethylene Glycol 3350 [Miralax] 17 gm PO DAILY PRN 08/24/20 08/24/20 Sennosides-Docusate Sodium 1 tab PO BID 08/24/20 08/24/20 [Senokot-S] Triamcinolone 0.025% Cream 1 applic TOPICAL DAILY PRN 08/24/20 08/24/20 [Kenalog 0.025% Cream] Verapamil HCl [Verapamil ER] 240 mg PO DAILY 08/24/20 08/24/20 cloNIDine HCL [Catapres] 0.1 mg PO TID 08/24/20 08/24/20 hydrALAZINE HCL 50 mg PO Q12H 08/24/20 08/24/20 Previous Rx's Medication Instructions Recorded Cephalexin [Keflex] 500 mg PO Q6HR #40 cap 08/20/20 Allergies Allergy/AdvReac Type Severity Reaction Status Date / Time amoxicillin [Amoxicillin] Allergy Rash/Hives Verified 08/24/20 07:03 latanoprost AdvReac blurry Verified 08/24/20 07:03 vision prednisolone AdvReac Swelling Verified 08/24/20 07:03 steroids AdvReac affected Uncoded 08/20/20 16:13 eyes Review of Systems ROS Statement: Those systems with pertinent positive or pertinent negative responses have been documented in the HPI. ROS Other: All systems not noted in ROS Statement are negative. Constitutional: Denies: fever, chills Respiratory: Reports: as per HPI, cough, dyspnea, wheezes. Denies: hemoptysis Cardiovascular: Reports: as per HPI, edema. Denies: chest pain, palpitations, orthopnea, syncope Gastrointestinal: Reports: constipation. Denies: abdominal pain, vomiting, diarrhea Genitourinary: Denies: dysuria, hematuria Musculoskeletal: Denies: back pain Skin: Denies: rash Neurological: Denies: headache, weakness, numbness Psychiatric: Denies: anxiety Past Medical History Past Medical History: COPD, Diabetes Mellitus, Eye Disorder, GERD/Reflux, Hyperlipidemia, Hypertension, Osteoarthritis (OA) Additional Past Medical History / Comment(s): spondolysis, , blurry vision & eye problems ?related to diabetes History of Any Multi-Drug Resistant Organisms: None Reported Past Surgical History: Back Surgery, Hysterectomy, Orthopedic Surgery Additional Past Surgical History / Comment(s): RT shoulder surgery, LT arthroscopy knee. COLONOSCOPY. BACK SX X 2 Past Anesthesia/Blood Transfusion Reactions: No Reported Reaction Past Psychological History: No Psychological Hx Reported Smoking Status: Former smoker Past Alcohol Use History: Rare Past Drug Use History: None Reported - Past Family History Mother Family Medical History: No Reported History General Exam Limitations: no limitations General appearance: alert, in no apparent distress Head exam: Present: atraumatic, normocephalic Eye exam: Absent: scleral icterus, conjunctival injection Neck exam: Present: normal inspection Respiratory exam: Present: wheezes, other (Exam of the left breast with CHELSIE Ferguson present, reveals that there is some moderate erythema diffusely and some moderate edema. There is not a palpable fluid collection. No discharge. No lymph node tenderness.). Absent: respiratory distress, rales, rhonchi, stridor, accessory muscle use, decreased breath sounds Cardiovascular Exam: Present: regular rate, normal rhythm, normal heart sounds. Absent: systolic murmur, diastolic murmur, rubs, gallop GI/Abdominal exam: Present: soft. Absent: distended, tenderness, guarding, rebound Extremities exam: Present: normal capillary refill, pedal edema (There is some mild edema to both feet, slightly greater on the right hand extending up to the lower calf as well.). Absent: calf tenderness Back exam: Present: normal inspection. Absent: CVA tenderness (R), CVA tenderness (L) Neurological exam: Present: alert Skin exam: Present: warm, dry, intact, normal color. Absent: rash Course Vital Signs 08/23/20 08/23/20 08/23/20 22:33 23:35 23:40 Temperature 99.7 F H Pulse Rate 103 H 100 104 H Respiratory 18 Rate Blood Pressure 163/89 O2 Sat by Pulse 91 L Oximetry 08/24/20 01:26 Temperature 99.6 F Pulse Rate 99 Respiratory 19 Rate Blood Pressure 144/83 O2 Sat by Pulse 96 Oximetry Medical Decision Making - Medical Decision Making This patient is 60-year-old woman presenting with dyspnea and with left breast swelling. Dyspnea does appear to be multifactorial at this point with suspect main component due to CHF and also some underlying COPD. Patient admitted for further workup and also to continue treatment for the suspected left mastitis versus possible breast malignancy. The patient will also have pulmonary perfusion test to rule out PE, given that her renal function does not support computed tomography scan with contrast - Lab Data Result diagrams: 08/27/20 05:42 08/28/20 06:43 Lab Results 08/23/20 08/23/20 08/23/20 Range/Units 23:14 23:14 23:14 WBC 4.5 (3.8-10.6) k/uL RBC 4.65 (3.80-5.40) m/uL Hgb 11.9 (11.4-16.0) gm/dL Hct 40.3 (34.0-46.0) % MCV 86.7 (80.0-100.0) fL MCH 25.6 (25.0-35.0) pg MCHC 29.6 L (31.0-37.0) g/dL RDW 17.2 H (11.5-15.5) % Plt Count 276 (150-450) k/uL MPV 9.3 Neutrophils % 89 % Lymphocytes % 6 % Monocytes % 3 % Eosinophils % 2 % Basophils % 0 % Neutrophils # 4.0 (1.3-7.7) k/uL Lymphocytes # 0.2 L (1.0-4.8) k/uL Monocytes # 0.1 (0-1.0) k/uL Eosinophils # 0.1 (0-0.7) k/uL Basophils # 0.0 (0-0.2) k/uL Hypochromasia Marked Poikilocytosis Slight Anisocytosis Slight PT 11.4 (9.0-12.0) sec INR 1.1 (<1.2) APTT 23.6 (22.0-30.0) sec D-Dimer 7.02 H (<0.60) mg/L FEU Sodium 143 (137-145) mmol/L Potassium 5.1 (3.5-5.1) mmol/L Chloride 108 H (98-107) mmol/L Carbon Dioxide 29 (22-30) mmol/L Anion Gap 6 mmol/L BUN 32 H (7-17) mg/dL Creatinine 1.93 H (0.52-1.04) mg/dL Est GFR (CKD-EPI)AfAm 32 (>60 ml/min/1.73 sqM) Est GFR (CKD-EPI)NonAf 28 (>60 ml/min/1.73 sqM) Glucose 157 H (74-99) mg/dL Plasma Lactic Acid Loco (0.7-2.0) mmol/L Calcium 9.0 (8.4-10.2) mg/dL Total Bilirubin 0.5 (0.2-1.3) mg/dL AST 31 (14-36) U/L ALT 25 (4-34) U/L Alkaline Phosphatase 52 (38-126) U/L Troponin I (0.000-0.034) ng/mL NT-Pro-B Natriuret Pep pg/mL Total Protein 5.8 L (6.3-8.2) g/dL Albumin 3.2 L (3.5-5.0) g/dL 08/23/20 08/23/20 08/23/20 Range/Units 23:14 23:14 23:14 WBC (3.8-10.6) k/uL RBC (3.80-5.40) m/uL Hgb (11.4-16.0) gm/dL Hct (34.0-46.0) % MCV (80.0-100.0) fL MCH (25.0-35.0) pg MCHC (31.0-37.0) g/dL RDW (11.5-15.5) % Plt Count (150-450) k/uL MPV Neutrophils % % Lymphocytes % % Monocytes % % Eosinophils % % Basophils % % Neutrophils # (1.3-7.7) k/uL Lymphocytes # (1.0-4.8) k/uL Monocytes # (0-1.0) k/uL Eosinophils # (0-0.7) k/uL Basophils # (0-0.2) k/uL Hypochromasia Poikilocytosis Anisocytosis PT (9.0-12.0) sec INR (<1.2) APTT (22.0-30.0) sec D-Dimer (<0.60) mg/L FEU Sodium (137-145) mmol/L Potassium (3.5-5.1) mmol/L Chloride (98-107) mmol/L Carbon Dioxide (22-30) mmol/L Anion Gap mmol/L BUN (7-17) mg/dL Creatinine (0.52-1.04) mg/dL Est GFR (CKD-EPI)AfAm (>60 ml/min/1.73 sqM) Est GFR (CKD-EPI)NonAf (>60 ml/min/1.73 sqM) Glucose (74-99) mg/dL Plasma Lactic Acid Loco 0.6 L (0.7-2.0) mmol/L Calcium (8.4-10.2) mg/dL Total Bilirubin (0.2-1.3) mg/dL AST (14-36) U/L ALT (4-34) U/L Alkaline Phosphatase (38-126) U/L Troponin I 0.062 H* (0.000-0.034) ng/mL NT-Pro-B Natriuret Pep 9410 pg/mL Total Protein (6.3-8.2) g/dL Albumin (3.5-5.0) g/dL - EKG Data -: EKG Interpreted by Al EKG shows normal: sinus rhythm, axis (Normal), intervals (Normal), QRS complexes (Normal), ST-T waves (Normal) Rate: normal (Rate 97 bpm) Disposition Clinical Impression: Heart failure, Hypertension, Cellulitis of breast, COPD (chronic obstructive pu lmonary disease) Disposition: ADMITTED IP TO THIS [facility] Condition: Poor
[2020-08-23 23:58] LABS: Anisocytosis Slight; Basophils % (A) 0 %; Eosinophils # (A) 0.1 k/uL (0-0.7); Eosinophils % (A) 2 %; HCT 40.3 % (34.0-46.0); HGB 11.9 gm/dL (11.4-16.0); Hypochromasia Marked; Lymphocytes # (A) 0.2 k/uL (1.0-4.8); Lymphocytes % (A) 6 %; MCH 25.6 pg (25.0-35.0); MCHC 29.6 g/dL (31.0-37.0); MCV 86.7 fL (80.0-100.0); Mean Platelet Volume 9.3; Monocytes # (A) 0.1 k/uL (0-1.0); Monocytes % (A) 3 %; Neutrophils % (A) 89 %; Platelet Count 276 k/uL (150-450); Poikilocytosis Slight; RBC 4.65 m/uL (3.80-5.40); RDW 17.2 % (11.5-15.5); WBC 4.5 k/uL (3.8-10.6)
[2020-08-24 00:07] LABS: Albumin 3.2 g/dL (3.5-5.0); Potassium 5.1 mmol/L (3.5-5.1); Total Bilirubin 0.5 mg/dL (0.2-1.3); Total Protein 5.8 g/dL (6.3-8.2)
--- NOTE | 2020-08-24 00:07 | XR ---
EXAMINATION TYPE: XR chest 2V DATE OF EXAM: 08/23/2020 COMPARISON: 07/24/2016 HISTORY: Short of breath TECHNIQUE: 2 views FINDINGS: There is pulmonary vascular congestion. There is some infiltrate left lower lobe. There is blunting of the costophrenic angles. There are no hilar masses. Thoracic aorta is atheromatous. There is question of some air in the pleural space on the lower right lateral chest wall. The right lung a pex however does not show evidence of any pneumothorax. IMPRESSION: There is evidence for new mild congestive heart failure with pleural effusions and left l ower lobe pneumonia compared to old exam. Possible small right-sided pneumothorax.. Exam limited by t he shadow of the right arm over the right ribs. Right shoulder surgery noted.
[2020-08-24 00:16] LABS: INR 1.1 (<1.2); Partial Thromboplastin Time 23.6 sec (22.0-30.0); Prothrombin Time 11.4 sec (9.0-12.0)
[2020-08-24] MEDS ORDERED: ENOXAPARIN 120 MG/0.8 ML SYRINGE SQ STA (00:51)
[2020-08-24] MEDS ORDERED: FUROSEMIDE 10 MG/ML 4 ML VIAL IV STA (00:53)
[2020-08-24] MEDS ORDERED: NITROGLYCERIN OINT 1 INCH/GM PACKET TOPICAL STA (00:53)
--- NOTE | 2020-08-24 01:36 | US ---
EXAM: US Duplex Right Lower Extremity Veins CLINICAL HISTORY: ITS.REASON US Reason: Possible DVT TECHNIQUE: Real-time duplex ultrasound scan of the right lower extremity veins integrating B-mode two-dimensional vascular structure, Doppler spectral analysis, color flow Doppler imaging and compression. COMPARISON: No relevant prior studies available. FINDINGS: Deep veins: Unremarkable. No DVT in the visualized common femoral, femoral, proximal deep femoral or popliteal veins. The veins demonstrate normal color flow, are normally compressible, with normal phasic flow and/or augmentation response. Superficial veins: Unremarkable. No thrombus in the visualized great saphenous vein. Soft tissues: Likely Oliver's cyst in the popliteal fossa measuring 3.8 cm. Mild soft tissue edema. IMPRESSION: 1. No evidence of acute DVT. 2. Likely Oliver's cyst in the popliteal fossa measuring 3.8 cm.
[2020-08-24] MEDS: FUROSEMIDE 10 MG/ML 4 ML VIAL IV SCH ×2 (02:34→16:30)
[2020-08-24] MEDS ORDERED: HYDROcodone/APAP 10-325MG 1 EACH TAB PO PRN (03:03)
[2020-08-24] MEDS ORDERED: ACETAMINOPHEN TAB 325 MG TAB PO PRN (03:04)
[2020-08-24 06:09] LABS: Glucose,Whole Blood 189 mg/dL (75-99)
[2020-08-24] MEDS: CEPHALEXIN 500 MG CAP PO SCH ×2 (06:22→12:48)
[2020-08-24] MEDS: INSULIN ASPART (NovoLOG) 100 UNIT/ML VIAL SQ SCH ×4 (06:22→19:52)
[2020-08-24] MEDS: glipiZIDE 5 MG TAB PO SCH ×2 (06:22→16:31)
[2020-08-24] MEDS ORDERED: NITROGLYCERIN OINT 1 INCH/GM PACKET TOPICAL SCH (09:00)
[2020-08-24] MEDS ORDERED: lisinopriL 20 MG TAB PO SCH (09:00)
[2020-08-24] MEDS: amLODIPine 10 MG TAB PO SCH (09:34)
[2020-08-24] MEDS: GABAPENTIN 400 MG CAP PO SCH ×2 (09:34→20:09)
[2020-08-24] MEDS: HEPARIN SODIUM,PORCINE 5,000 UNIT/ML 1 ML VIAL SQ SCH ×2 (09:34→16:31)
[2020-08-24] MEDS: METOPROLOL TARTRATE 50 MG TAB PO SCH ×2 (09:35→20:10)
--- NOTE | 2020-08-24 09:43 | NM ---
EXAMINATION TYPE: NM pul vent and perfuse DATE OF EXAM: 08/24/2020 COMPARISON: Chest x-ray 08/23/2020 HISTORY: Difficulty breathing, rule out PE TECHNIQUE: Utilizing inhalation of 37.1 mCi Tc 99m DTPA aerosol and intravenous injection of 5.2 mCi of Tc 99m MAA, ventilation and perfusion images are acquired post injection in multiple projections. FINDINGS: Perfusion is more homogenous than ventilation. Some central clumping of the radiopharmaceutical on ve ntilation imaging may be indicative of underlying COPD. No evident ventilation/perfusion mismatch. IMPRESSION: Low probability for pulmonary embolus
--- NOTE | 2020-08-24 10:41 | P.CRDCN ---
History of Present Illness History of present illness: HISTORY OF PRESENTING ILLNESS This is a pleasant 60-year-old -[place] female past medical history significant for hypertension, dyslipidemia, diabetes mellitus, COPD, chronic nicotine dependence, chronic kidney disease and obesity. 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 In [address] Khan in the office secondary to abnormal stress test and underwent a cardiac catheterization revealing normal coronary arteries with no obstructive disease. We have been asked to see in consultation for heart failure. Due to to the hospital with a three-week history of shortness of breath. She was treated at [facility] on August 09 with steroids and updrafts and thought to have an exacerbation of COPD. However the patient states she has not had stable or comfortable breathing since that time. Her breathing at times is worse with exertion. She has also noticed orthopnea and paroxysmal woken up at night short of breath. She is also concerned about lower extremity edema, worse on the right. She denies symptoms of chest pain, dizziness or palpitations. There is no old echocardiogram for review. DIAGNOSTICS EKG reveals sinus mechanism heart rate of 97 with nonspecific changes in the precordial leads. VQ scan is low probability for PE. Chest xray pleural effusions and left lower lobe pneumonia, possible small right-sided pneumothorax. Laboratory reviewed, troponin 0.062, 0.055, 0.055, WBC 4.5, hemoglobin 11.9, platelets 276, d-dimer 7.02, sodium 143, potassium 5.1, creatinine 1.93, ProBNP 9410. Current cardiac medications include lisinopril 40 mg daily although the patient does not believe she is taking this medication any more, hydralazine 50 mg twice a day, clonidine 0.1 mg 3 times a day, verapamil 240 mg daily, losartan 100 mg daily and fenofibrate. REVIEW OF SYSTEMS At the time of my exam: CONSTITUTIONAL: Denies fever or chills. CARDIOVASCULAR: Denies chest pain, shortness of breath, orthopnea, PND or palpitations. RESPIRATORY: Denies cough. GASTROINTESTINAL: Denies abdominal pain, diarrhea, constipation, nausea or vomiting. MUSCULOSKELETAL: Denies myalgias. NEUROLOGIC: Denies numbness, tingling, headacbe or weakness. ENDOCRINE: Denies fatigue, weight change, polydipsia or polyurina. GENITOURINARY: Denies burning, hematuria or urgency with micturation. HEMATOLOGIC: Denies history of anemia or bleeding. PHYSICAL EXAMINATION Blood pressure 144/72 heart rate 99 afebrile and maintaining oxygen saturation on nasal cannula. CONSTITUTIONAL: No apparent distress. Obese. HEENT: Head is normocephalic. Pupils are equal, round. Sclerae anicteric. Mucous membranes of the mouth are moist. No JVD. No carotid bruit. CHEST EXAMINATION: Rales at the left mid lobe, diminished bilaterally, faint expiratory wheezes anteriorly and no rhonchi. No chest wall tenderness is noted on palpation or with deep breathing. HEART EXAMINATION: Regular rate and rhythm. S1, S2 heard. No murmurs, gallops or rub. ABDOMEN: Soft, nontender. Positive bowel sounds. EXTREMITIES: 2+ peripheral pulses, right lower extremity 1+ pitting edema, trace edema on the left and no calf tenderness. NEUROLOGIC EXAMINATION: Patient is awake, alert and oriented x3. ASSESSMENT Acute diastolic heart failure Troponin elevation secondary to renal function Acute on chronic kidney disease Hypertension Dyslipidemia Diabetes mellitus COPD Chronic nicotine dependence Obesity, BMI 39 PLAN Obtain 2-D echocardiogram and Doppler study to assess cardiac structure and function.bmp Agree with IV diuresis as ordered in ER. Follow renal function and electrolytes in the morning. Document accurate intake and output along with daily weights. Troponin elevation is flat with no typical rise and fall pattern, likely related to renal function. Discontinue nitropaste. Initiate aspirin 81 mg daily and continue atorvastatin 40 mg daily. Medication list has to be clarified, she should not be taking losartan and lisinopril. Also unclear if she is taking lopressor or verapamil. We will continue to follow and make recommendations accordingly. Thank you kindly for this consultation. Nurse Practitioner note has been reviewed, I agree with a documented findings and plan of care. Patient was seen and examined. Past Medical History Past Medical History: COPD, Diabetes Mellitus, GERD/Reflux, Hyperlipidemia, Hypertension, Osteoarthritis (OA) Additional Past Medical History / Comment(s): spondolysis History of Any Multi-Drug Resistant Organisms: None Reported Past Surgical History: Back Surgery, Hysterectomy, Orthopedic Surgery Additional Past Surgical History / Comment(s): RT shoulder surgery, LT arthroscopy knee. COLONOSCOPY. BACK SX X 2 Past Anesthesia/Blood Transfusion Reactions: No Reported Reaction Past Psychological History: No Psychological Hx Reported Smoking Status: Current some day smoker Past Alcohol Use History: Rare Additional Past Alcohol Use History / Comment(s): pt. smokes 2 cigs/week, has smoked since age of 12 Past Drug Use History: None Reported - Past Family History Mother Family Medical History: Diabetes Mellitus Medications and Allergies Home Medications Medication Instructions Recorded Confirmed Type HYDROcodone/APAP 10-325MG [[place] 1 tab PO Q6HR PRN 05/21/15 08/24/20 History 10-325] lisinopriL 40 mg PO DAILY 05/05/17 08/24/20 History Cephalexin [Keflex] 500 mg PO Q6HR #40 cap 08/20/20 08/24/20 Rx Albuterol Sulfate [Proair Hfa] 1 - 2 puff INHALATION RT-Q6H PRN 08/24/20 08/24/20 History Baclofen 10 mg PO BID 08/24/20 08/24/20 History Ergocalciferol [Vitamin D2 (1250 1,250 mcg PO Q7D 08/24/20 08/24/20 History Mcg = 32977 Iu)] Fenofibrate 160 mg PO DAILY 08/24/20 08/24/20 History INSULIN LISPRO (humaLOG) [humaLOG] See Protocol SQ AC-TID 08/24/20 08/24/20 History Insulin Glargine [Lantus] See Protocol SQ HS 08/24/20 08/24/20 History Loratadine [Claritin] 10 mg PO DAILY 08/24/20 08/24/20 History Losartan Potassium 100 mg PO DAILY 08/24/20 08/24/20 History Montelukast [Singulair] 10 mg PO HS 08/24/20 08/24/20 History Nortriptyline [Pamelor] 25 mg PO DAILY 08/24/20 08/24/20 History Pioglitazone [Actos] 30 mg PO DAILY 08/24/20 08/24/20 History Polyethylene Glycol 3350 [Miralax] 17 gm PO DAILY PRN 08/24/20 08/24/20 History Sennosides-Docusate Sodium 1 tab PO BID 08/24/20 08/24/20 History [Senokot-S] Triamcinolone 0.025% Cream 1 applic TOPICAL DAILY PRN 08/24/20 08/24/20 History [Kenalog 0.025% Cream] Verapamil HCl [Verapamil ER] 240 mg PO DAILY 08/24/20 08/24/20 History cloNIDine HCL [Catapres] 0.1 mg PO TID 08/24/20 08/24/20 History hydrALAZINE HCL 50 mg PO Q12H 08/24/20 08/24/20 History Allergies Allergy/AdvReac Type Severity Reaction Status Date / Time amoxicillin [Amoxicillin] Allergy Rash/Hives Verified 08/24/20 07:03 latanoprost AdvReac blurry Verified 08/24/20 07:03 vision prednisolone AdvReac Swelling Verified 08/24/20 07:03 steroids AdvReac affected Uncoded 08/20/20 16:13 eyes Physical Exam Vitals: Vital Signs Temp Pulse Pulse Resp BP BP Pulse Ox 08/24/20 03:52 98.1 F 99 20 144/72 93 L 08/24/20 01:26 99.6 F 99 19 144/83 96 08/23/20 23:40 104 H 08/23/20 23:35 100 08/23/20 22:33 99.7 F H 103 H 18 163/89 91 L Intake and Output 08/23/20 08/24/20 08/24/20 22:59 06:59 14:59 Intake Total 240 240 Output Total 400 Balance -160 240 Intake: Oral 240 240 Output: Urine 400 Other: Voiding Method Toilet # Voids 1 Weight 108.862 kg 110.1 kg Results 08/23/20 23:14 08/23/20 23:14 Cardiac Enzymes 08/23/20 08/23/20 08/24/20 Range/Units 23:14 23:14 03:20 AST 31 (14-36) U/L Troponin I 0.062 H* 0.055 H* (0.000-0.034) ng/mL 08/24/20 Range/Units 05:30 AST (14-36) U/L Troponin I 0.055 H* (0.000-0.034) ng/mL Coagulation 08/23/20 Range/Units 23:14 PT 11.4 (9.0-12.0) sec APTT 23.6 (22.0-30.0) sec CBC 08/23/20 Range/Units 23:14 WBC 4.5 (3.8-10.6) k/uL RBC 4.65 (3.80-5.40) m/uL Hgb 11.9 (11.4-16.0) gm/dL Hct 40.3 (34.0-46.0) % Plt Count 276 (150-450) k/uL Comprehensive Metabolic Panel 08/23/20 Range/Units 23:14 Sodium 143 (137-145) mmol/L Potassium 5.1 (3.5-5.1) mmol/L Chloride 108 H (98-107) mmol/L Carbon Dioxide 29 (22-30) mmol/L BUN 32 H (7-17) mg/dL Creatinine 1.93 H (0.52-1.04) mg/dL Glucose 157 H (74-99) mg/dL Calcium 9.0 (8.4-10.2) mg/dL AST 31 (14-36) U/L ALT 25 (4-34) U/L Alkaline Phosphatase 52 (38-126) U/L Total Protein 5.8 L (6.3-8.2) g/dL Albumin 3.2 L (3.5-5.0) g/dL Current Medications Generic Name Dose Route Start Last Admin Trade Name Freq PRN Reason Stop Dose Admin Acetaminophen 650 mg 08/24/20 03:04 Acetaminophen Tab 325 Mg Tab PO Q4H PRN Fever Hydrocodone Bitart/Acetaminophen 1 each 08/24/20 03:03 Hydrocodone/Apap 10-325mg 1 Each Tab PO Q6HR PRN Pain Amlodipine Besylate 10 mg 08/24/20 09:00 08/24/20 09:34 Amlodipine 10 Mg Tab PO 10 mg DAILY SIERRA Administration Atorvastatin Calcium 40 mg 08/24/20 21:00 Atorvastatin 40 Mg Tab PO HS SIERRA Cephalexin 500 mg 08/24/20 06:00 08/24/20 06:22 Cephalexin 500 Mg Cap PO 500 mg Q6HR SIERRA Administration Furosemide 40 mg 08/24/20 02:15 08/24/20 02:34 Furosemide 10 Mg/Ml 4 Ml Vial IV Not Given Q12H SIERRA Gabapentin 400 mg 08/24/20 09:00 08/24/20 09:34 Gabapentin 400 Mg Cap PO 400 mg BID SIERRA Administration Glipizide 5 mg 08/24/20 07:30 08/24/20 06:22 Glipizide 5 Mg Tab PO 5 mg AC-BID SIERRA Administration Heparin Sodium (Porcine) 5,000 unit 08/24/20 08:00 08/24/20 09:34 Heparin Sodium,Porcine 5,000 Unit/Ml 1 Ml Vial SQ 5,000 unit Q8HR SIERRA Administration Insulin Aspart 0 unit 08/24/20 07:30 08/24/20 06:22 Insulin Aspart (Novolog) 100 Unit/Ml Vial SQ 3 unit ACHS SIERRA Administration Protocol Lisinopril 40 mg 08/24/20 09:00 08/24/20 09:34 Lisinopril 20 Mg Tab PO 40 mg DAILY SIERRA Administration Metoprolol Tartrate 50 mg 08/24/20 09:00 08/24/20 09:35 Metoprolol Tartrate 50 Mg Tab PO 50 mg BID SIERRA Administration Nitroglycerin 1 inch 08/24/20 09:00 08/24/20 09:35 Nitroglycerin Oint 1 Inch/Gm Packet TOPICAL 1 inch QID [facility]ERRA Administration Sodium Chloride 10 ml 08/24/20 09:00 08/24/20 09:35 Sodium Chloride 0.9% Flush 10 Ml Syringe IV 10 ml BID SIERRA Administration Intake and Output 08/23/20 08/24/20 08/24/20 22:59 06:59 14:59 Intake Total 240 240 Output Total 400 Balance -160 240 Intake: Oral 240 240 Output: Urine 400 Other: Voiding Method Toilet # Voids 1 Weight 108.862 kg 110.1 kg 08/23/20 23:14 08/23/20 23:14
--- NOTE | 2020-08-24 11:59 | ECHOF ---
Referral Reason:Heart Failure MEASUREMENTS -------- HEIGHT: 167.6 cm WEIGHT: 109.8 kg BP: IVSd: 2.1 cm (0.6 - 1.1) LVIDd: 4.3 cm (3.9 - 5.3) LVPWd: 2.0 cm (0.6 - 1.1) IVSs: 2.3 cm LVIDs: 1.8 cm LVPWs: 2.7 cm LAESV Index (A-L): 25.84 ml/m Ao Diam: 3.3 cm (2.0 - 3.7) AV Cusp: 2.5 cm (1.5 - 2.6) LA Diam: 3.1 cm (2.7 - 3.8) MV EXCURSION: 8.980 mm (> 18.000) MV EF SLOPE: 45 mm/s (70 - 150) EPSS: 0.9 cm MV E Car: 0.89 m/s MV DecT: 189 ms MV A Car: 1.17 m/s MV E/A Ratio: 0.76 RAP: 20.00 mmHg RVSP: 26.86 mmHg FINDINGS -------- Sinus rhythm. This was a technically adequate study. The left ventricular size is normal. There is severe concentric left ventricular hypertrophy. Ove rall left ventricular systolic function is normal with, an EF between 55 - 60 %. The diastolic fill ing pattern is normal for the age of the patient 13.92. The right ventricle is normal in size. Normal LA size by volume 22+/-6 ml/m2. The right atrial size is normal. The aortic valve was not well visualized. The mitral valve is normal. There is trace mitral regurgitation. The tricuspid valve appears structurally normal. Trace tricuspid regurgitation present. Right dianna tricular systolic pressure is normal at < 35 mmHg. The pulmonic valve was not well visualized. The aortic root size is normal. The inferior vena cava is dilated with no significant inspiratory collapse which is consistent estima rajinder right atrial pressure of >20 mmHg. There is a trivial pericardial effusion present. CONCLUSIONS -------- 1. There is severe concentric left ventricular hypertrophy. 2. Overall left ventricular systolic function is normal with, an EF between 55 - 60 %. 3. Normal LA size by volume 22+/-6 ml/m2. 4. The aortic valve was not well visualized. 5. There is trace mitral regurgitation. 6. Trace tricuspid regurgitation present. 7. The inferior vena cava is dilated with no significant inspiratory collapse which is consistent est imated right atrial pressure of >20 mmHg. 8. There is a trivial pericardial effusion present. [employer] SUPERVISOR: Fanta Aguirre RDCS
[2020-08-24 12:00] LABS: Glucose,Whole Blood 119 mg/dL (75-99)
[2020-08-24] MEDS: ASPIRIN 81 MG PO SCH (12:48)
[2020-08-24 13:58] VITALS: BMI 39.2
[2020-08-24] MEDS ORDERED: ALBUTEROL NEBULIZED 2.5 MG/3 ML INHALATION PRN (14:26)
[2020-08-24] MEDS ORDERED: polyethylene glycoL 3350 17 GM POWD.PACK PO PRN (14:26)
--- NOTE | 2020-08-24 14:36 | P.HPIM ---
History of Present Illness H&P Date: 08/24/20 HISTORY OF PRESENT ILLNESS This is a 60-year-old female patient at [facility] with past medical history significant for COPD, diabetes mellitus type 2, gastroesophageal reflux disease, hypertension, hyperlipidemia, generalized osteoarthritis, remote history of tobacco use and dependence. She gives history that she was recently hospitalized at [facility] with edema more so to the right lower extremity. She was placed on steroids which she thinks made her swelling worse. She was admitted for shortness of breath and continued shortness Soreness of b reath at the time of discharge. She states she is short of breath with ambulation. No chest pain. She also was treated for left breast mastitis and placed on antibiotics. Patient states that she has had continued shortness of breath, no fever or chills. She continues to have erythema and edema to the left breast as well. She came into [facility] emergency center for evaluation. EKG was sinus rhythm with heart rate of 97 with nonspecific changes in the precordial leads. VQ scan is low probability for PE. Chest xray pleural effusions and left lower lobe pneumonia, possible small right-sided pneumothorax. Troponin 0.062, 0.055, 0.055, WBC 4.5, hemoglobin 11.9, platelets 276, d-dimer 7.02, sodium 143, potassium 5.1, creatinine 1.93, ProBNP 9410. patient admitted to the cardiac stepdown unit and consult in place with cardiology REVIEW OF SYSTEMS Constitutional: No fever, no chills, no night sweats. No weight change. No weakness, fatigue or lethargy. No daytime sleepiness. EENT: No headache. No blurred vision or double vision, no loss of vision. No loss of Hearing, no ringing in the ears, no dizziness. No nasal drainage or congestion. No epistaxis. No sore throat. Lungs: Reports shortness of breath, cough, no sputum production. No wheezing. Reports shortness of breath with exertion. Cardiovascular: No chest pain, reports lower extremity edema. No palpitations. No paroxysmal nocturnal dyspnea. No orthopnea. No lightheadedness or dizziness. No syncopal episodes. Abdominal: No abdominal pain. No nausea, vomiting. No diarrhea. No constipation. No bloody or tarry stools.. No loss of appetite. Genitourinary: No dysuria, increased frequency, urgency. No urinary retention. Musculoskeletal: No myalgias. No muscle weakness, no gait dysfunction, no frequent falls. No back pain. No neck pain. Integumentary: No wounds, no lesions. No rash or pruritus. No unusual bruising. No change in hair or nails. Neurologic: No aphasia. No facial droop. No change in mentation. No head injury. No headache. No paralysis. No paresthesia. Psychiatric: No depression. No anxiety. . Endocrine: No abnormal blood sugars. No weight change. SOCIAL HISTORY Patient is a smoker of 45 cigarettes per day for 30 years. She has recently cut down to 2-3 cigarettes per day with plan for smoking cessation. She drinks alcohol rarely. No illicit drug use. She lives alone and her sister is her caregiver. She does not have oxygen, CPAP at home. She does have a nebulizer. She does not utilize aid for ambulation. FAMILY HISTORY Mother at age 63 from COPD. Father is alive the patient does not know his medical history. She has one stepbrother. Patient has 3 sisters. One sister has diabetes type 2, one sister has diabetes type 1 and one sister has no major medical problems. Patient's 3 daughters with no major medical problems. PHYSICAL EXAMINATION Gen: This priscila 60-year-old -[place] female. She is resting in bed appears to be comfortable. No acute respiratory distress is noted at rest. HEENT: Head is atraumatic, normocephalic. Pupils equal, round. Sclerae is anicteric. NECK: Supple. No JVD. No lymphadenopathy. No thyromegaly. LUNGS: reveals diminished bilaterally, few expiratory wheeze. Accessory muscle usage No intercostal retractions. HEART: Regular rate and rhythm. No murmur. ABDOMEN: Soft. Bowel sounds are present. No masses. No tenderness. EXTREMITIES: right lower extremity with 1+ pedal edema. left lower externa with trace pedal edema. Dorsalis pedis +2 bilaterally. No calf tenderness. NEUROLOGICAL: Patient is awake, alert and oriented x3. Cranial nerves 2 through 12 are grossly intact. ASSESSMENT AND PLAN 1. Acute diastolic heart failure. Cardiology consult appreciated. Echocardiogram has been ordered, continue Lasix 40 mg IV every 12 hours, monitor I&O and daily weights. 2. Troponin elevation secondary to renal function. 3. Acute kidney injury. Avoid nephrotoxic agents. Okay to continue Lasix and losartan for now. Repeat labs in the morning 4. Chronic kidney disease stage III. 5. Left-sided mastitis. Continue Keflex. 6. Hypertension. Continue Norvasc 10 mg daily, losartan 100 mg daily, Lopressor 50 mg twice daily, clonidine 0.1 mg 3 times daily, hydralazine 50 mg every 12 hours,. Home medication list states lisinopril 40 and losartan. Patient verbalizes that lisinopril was discontinued. Discussed Lopressor and verapamil with cardiology and preference is to continue Lopressor and hold verapamil. 7. Hyperlipidemia. Continue atorvastatin 40 mg at bedtime 8. Diabetes mellitus type 2. Continue Levemir, dose will be clarified with the patient. NovoLog scale before meals and at bedtime. Hold Actos 30 mg daily. 8. COPD. continue albuterol inhaler 2 puffs every 6 hours as needed. 10. Tobacco use and dependence. Smoking cessation. 11. Gastroesophageal reflux disease. 12. Diabetic neuropathy. Continue gabapentin 400 mg twice daily. Patient will be admitted to the hospital for a minimum of 2 night stay. DISCHARGE PLAN Home. Impression and plan of care have been directed as dictated by the signing physician. Kathe [place] nurse practitioner acting as scribe for signing physici an. Past Medical History Past Medical History: COPD, Diabetes Mellitus, GERD/Reflux, Hyperlipidemia, Hypertension, Osteoarthritis (OA) Additional Past Medical History / Comment(s): spondolysis History of Any Multi-Drug Resistant Organisms: None Reported Past Surgical History: Back Surgery, Hysterectomy, Orthopedic Surgery Additional Past Surgical History / Comment(s): RT shoulder surgery, LT arthroscopy knee. COLONOSCOPY. BACK SX X 2 Past Anesthesia/Blood Transfusion Reactions: No Reported Reaction Past Psychological History: No Psychological Hx Reported Smoking Status: Current some day smoker Past Alcohol Use History: Rare Additional Past Alcohol Use History / Comment(s): pt. smokes 2 cigs/week, has smoked since age of 12 Past Drug Use History: None Reported - Past Family History Mother Family Medical History: Diabetes Mellitus Medications and Allergies Home Medications Medication Instructions Recorded Confirmed Type HYDROcodone/APAP 10-325MG [[place] 1 tab PO Q6HR PRN 05/21/15 08/24/20 History 10-325] lisinopriL 40 mg PO DAILY 05/05/17 08/24/20 History Cephalexin [Keflex] 500 mg PO Q6HR #40 cap 08/20/20 08/24/20 Rx Albuterol Sulfate [Proair Hfa] 1 - 2 puff INHALATION RT-Q6H PRN 08/24/20 08/24/20 History Baclofen 10 mg PO BID 08/24/20 08/24/20 History Ergocalciferol [Vitamin D2 (1250 1,250 mcg PO Q7D 08/24/20 08/24/20 History Mcg = 85746 Iu)] Fenofibrate 160 mg PO DAILY 08/24/20 08/24/20 History INSULIN LISPRO (humaLOG) [humaLOG] See Protocol SQ AC-TID 08/24/20 08/24/20 History Insulin Glargine [Lantus] See Protocol SQ HS 08/24/20 08/24/20 History Loratadine [Claritin] 10 mg PO DAILY 08/24/20 08/24/20 History Losartan Potassium 100 mg PO DAILY 08/24/20 08/24/20 History Montelukast [Singulair] 10 mg PO HS 08/24/20 08/24/20 History Nortriptyline [Pamelor] 25 mg PO DAILY 08/24/20 08/24/20 History Pioglitazone [Actos] 30 mg PO DAILY 08/24/20 08/24/20 History Polyethylene Glycol 3350 [Miralax] 17 gm PO DAILY PRN 08/24/20 08/24/20 History Sennosides-Docusate Sodium 1 tab PO BID 08/24/20 08/24/20 History [Senokot-S] Triamcinolone 0.025% Cream 1 applic TOPICAL DAILY PRN 08/24/20 08/24/20 History [Kenalog 0.025% Cream] Verapamil HCl [Verapamil ER] 240 mg PO DAILY 08/24/20 08/24/20 History cloNIDine HCL [Catapres] 0.1 mg PO TID 08/24/20 08/24/20 History hydrALAZINE HCL 50 mg PO Q12H 08/24/20 08/24/20 History Allergies Allergy/AdvReac Type Severity Reaction Status Date / Time amoxicillin [Amoxicillin] Allergy Rash/Hives Verified 08/24/20 07:03 latanoprost AdvReac blurry Verified 08/24/20 07:03 vision prednisolone AdvReac Swelling Verified 08/24/20 07:03 steroids AdvReac affected Uncoded 08/20/20 16:13 eyes Physical Exam Vitals: Vital Signs Temp Pulse Pulse Resp BP BP Pulse Ox 08/24/20 03:52 98.1 F 99 20 144/72 93 L 08/24/20 01:26 99.6 F 99 19 144/83 96 08/23/20 23:40 104 H 08/23/20 23:35 100 08/23/20 22:33 99.7 F H 103 H 18 163/89 91 L Intake and Output 08/23/20 08/24/20 08/24/20 22:59 06:59 14:59 Intake Total 240 240 Output Total 400 Balance -160 240 Intake: Oral 240 240 Output: Urine 400 Other: Voiding Method Toilet # Voids 1 Weight 108.862 kg 110.1 kg Results CBC & Chem 7: 08/23/20 23:14 08/23/20 23:14 Labs: Abnormal Lab Results - Last 24 Hours (Table) 08/23/20 08/23/20 08/23/20 Range/Units 23:14 23:14 23:14 MCHC 29.6 L (31.0-37.0) g/dL RDW 17.2 H (11.5-15.5) % Lymphocytes # 0.2 L (1.0-4.8) k/uL D-Dimer 7.02 H (<0.60) mg/L FEU Chloride 108 H (98-107) mmol/L BUN 32 H (7-17) mg/dL Creatinine 1.93 H (0.52-1.04) mg/dL Glucose 157 H (74-99) mg/dL POC Glucose (mg/dL) (75-99) mg/dL Plasma Lactic Acid Loco (0.7-2.0) mmol/L Troponin I (0.000-0.034) ng/mL Total Protein 5.8 L (6.3-8.2) g/dL Albumin 3.2 L (3.5-5.0) g/dL 08/23/20 08/23/20 08/24/20 Range/Units 23:14 23:14 03:20 MCHC (31.0-37.0) g/dL RDW (11.5-15.5) % Lymphocytes # (1.0-4.8) k/uL D-Dimer (<0.60) mg/L FEU Chloride (98-107) mmol/L BUN (7-17) mg/dL Creatinine (0.52-1.04) mg/dL Glucose (74-99) mg/dL POC Glucose (mg/dL) (75-99) mg/dL Plasma Lactic Acid Loco 0.6 L (0.7-2.0) mmol/L Troponin I 0.062 H* 0.055 H* (0.000-0.034) ng/mL Total Protein (6.3-8.2) g/dL Albumin (3.5-5.0) g/dL 08/24/20 08/24/20 Range/Units 05:30 06:08 MCHC (31.0-37.0) g/dL RDW (11.5-15.5) % Lymphocytes # (1.0-4.8) k/uL D-Dimer (<0.60) mg/L FEU Chloride (98-107) mmol/L BUN (7-17) mg/dL Creatinine (0.52-1.04) mg/dL Glucose (74-99) mg/dL POC Glucose (mg/dL) 189 H (75-99) mg/dL Plasma Lactic Acid Loco (0.7-2.0) mmol/L Troponin I 0.055 H* (0.000-0.034) ng/mL Total Protein (6.3-8.2) g/dL Albumin (3.5-5.0) g/dL Thrombosis Risk Factor Assmnt - Choose All That Apply Each Factor Represents 1 point: Heart failure (<1month), Obesity (BMI >25) Each Risk Factor Represents 2 Points: Age 61-74 years Thrombosis Risk Factor Assessment Total Risk Factor Score: 4 Thrombosis Risk Factor Assessment Level: Moderate Risk
[2020-08-24] MEDS: LOSARTAN 50 MG TAB PO SCH (16:30)
[2020-08-24] MEDS: cloNIDine HCL 0.1 MG TAB PO SCH ×2 (16:30→20:10)
[2020-08-24 17:08] LABS: Glucose,Whole Blood 84 mg/dL (75-99)
[2020-08-24 19:40] LABS: Glucose,Whole Blood 141 mg/dL (75-99)
[2020-08-24] MEDS: ATORVASTATIN 40 MG TAB PO SCH (20:10)
[2020-08-24] MEDS: CEPHALEXIN 250 MG CAP PO SCH (20:10)
[2020-08-24] MEDS: MONTELUKAST 10 MG TAB PO SCH (20:10)
[2020-08-24] MEDS: SENNOSIDES-DOCUSATE SODIUM 1 EACH TAB PO SCH (20:10)
[2020-08-24] MEDS: BACLOFEN 10 MG TAB PO SCH (20:10)
[2020-08-24] MEDS: hydrALAZINE HCL 50 MG TAB PO SCH (20:10)
[2020-08-25] MEDS: HEPARIN SODIUM,PORCINE 5,000 UNIT/ML 1 ML VIAL SQ SCH ×4 (00:20→23:19)
[2020-08-25] MEDS: FUROSEMIDE 10 MG/ML 4 ML VIAL IV SCH (02:53)
[2020-08-25 05:42] LABS: Glucose,Whole Blood 88 mg/dL (75-99)
[2020-08-25] MEDS: INSULIN ASPART (NovoLOG) 100 UNIT/ML VIAL SQ SCH ×4 (06:10→21:07)
[2020-08-25] MEDS: glipiZIDE 5 MG TAB PO SCH ×2 (06:19→17:30)
[2020-08-25] MEDS: hydrALAZINE HCL 50 MG TAB PO SCH ×2 (07:42→21:07)
[2020-08-25] MEDS: BACLOFEN 10 MG TAB PO SCH ×2 (07:42→21:07)
[2020-08-25] MEDS: amLODIPine 10 MG TAB PO SCH (07:43)
[2020-08-25] MEDS: FENOFIBRATE 160 MG TAB PO SCH (07:43)
[2020-08-25] MEDS: ASPIRIN 81 MG PO SCH (07:43)
[2020-08-25] MEDS: cloNIDine HCL 0.1 MG TAB PO SCH ×3 (07:43→21:08)
[2020-08-25] MEDS: METOPROLOL TARTRATE 50 MG TAB PO SCH ×2 (07:43→21:07)
[2020-08-25] MEDS: SENNOSIDES-DOCUSATE SODIUM 1 EACH TAB PO SCH ×2 (07:43→21:07)
[2020-08-25] MEDS: LOSARTAN 50 MG TAB PO SCH (07:43)
[2020-08-25] MEDS: GABAPENTIN 400 MG CAP PO SCH ×2 (07:43→21:07)
[2020-08-25] MEDS: CEPHALEXIN 250 MG CAP PO SCH ×3 (07:44→21:08)
[2020-08-25] MEDS: NORTRIPTYLINE 25 MG CAP PO SCH (07:44)
[2020-08-25 08:22] LABS: Calcium 8.8 mg/dL (8.4-10.2)
[2020-08-25] MEDS ORDERED: LOSARTAN 50 MG TAB PO SCH (09:00)
--- NOTE | 2020-08-25 12:06 | P.PN ---
Subjective Progress Note Date: 08/25/20 HISTORY OF PRESENTING ILLNESS This is a pleasant 60-year-old -Portuguese female past medical history significant for hypertension, dyslipidemia, diabetes mellitus, COPD, chronic nicotine dependence, chronic kidney disease and obesity. 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 In [address] Khan in the office secondary to abnormal stress test and underwent a cardiac catheterization revealing normal coronary arteries with no obstructive disease. We have been asked to see in consultation for heart failure. Due to to the hospital with a three-week history of shortness of breath. She was treated at [facility] on August 09 with steroids and updrafts and thought to have an exacerbation of COPD. However the patient states she has not had stable or comfortable breathing since that time. Her breathing at times is worse with exertion. She has also noticed orthopnea and paroxysmal woken up at night short of breath. She is also concerned about lower extremity edema, worse on the right. She denies symptoms of chest pain, dizziness or palpitations. There is no old echocardiogram for review. DIAGNOSTICS EKG reveals sinus mechanism heart rate of 97 with nonspecific changes in the precordial leads. VQ scan is low probability for PE. Chest xray pleural effusions and left lower lobe pneumonia, possible small right-sided pneumothorax. Laboratory reviewed, troponin 0.062, 0.055, 0.055, WBC 4.5, hemoglobin 11.9, platelets 276, d-dimer 7.02, sodium 143, potassium 5.1, creatinine 1.93, ProBNP 9410. Current cardiac medications include lisinopril 40 mg daily although the patient does not believe she is taking this medication any more, hydralazine 50 mg twice a day, clonidine 0.1 mg 3 times a day, verapamil 240 mg daily, losartan 100 mg daily and fenofibrate. 08/25: Patient states that her breathing is better today. She is on Lasix 40 mg IV twice daily. She does continue to have some lower extremity edema. We'll plan to repeat chest x-ray in the morning. She has been afebrile, heart rate 89, blood pressure 129/88, pulse ox 99% on 3 L nasal cannula. Echocardiogram reveals EF of 55-60% with severe concentric left hypertrophy, trace mitral regurgitation, trace tricuspid regurgitation. BUN 44 and creatinine 2.15, potassium 5.0. PHYSICAL EXAMINATION CONSTITUTIONAL: No apparent distress. Obese. HEENT: Head is normocephalic. Pupils are equal, round. Sclerae anicteric. Mucous membranes of the mouth are moist. No JVD. No carotid bruit. CHEST EXAMINATION: Rales at the left mid lobe, diminished bilaterally, faint expiratory wheezes anteriorly and no rhonchi. No chest wall tenderness is noted on palpation or with deep breathing. HEART EXAMINATION: Regular rate and rhythm. S1, S2 heard. No murmurs, gallops or rub. ABDOMEN: Soft, nontender. Positive bowel sounds. EXTREMITIES: 2+ peripheral pulses, right lower extremity 1+ pitting edema, trace edema on the left and no calf tenderness. NEUROLOGIC EXAMINATION: Patient is awake, alert and oriented x3. ASSESSMENT Acute diastolic heart failure Troponin elevation secondary to renal function Acute on chronic kidney disease Hypertension Dyslipidemia Diabetes mellitus COPD Chronic nicotine dependence Obesity, BMI 39 PLAN To new IV Lasix but decreased frequency to once daily Document accurate intake and output along with daily weights. Continue aspirin 81 mg daily and atorvastatin 40 mg daily. Medication list has to be clarified, she should not be taking losartan and lisinopril. Also unclear if she is taking lopressor or verapamil. We will continue to follow and make recommendations accordingly. Thank you kindly for this consultation. Nurse Practitioner note has been reviewed, I agree with a documented findings and plan of care. Patient was seen and examined. Objective - Vital Signs Vital signs: Vital Signs Temp 98.3 F 08/25/20 03:22 Pulse 77 08/25/20 03:22 Resp 18 08/25/20 03:22 BP 115/68 08/25/20 03:22 Pulse Ox 96 08/25/20 03:22 Intake & Output 08/24/20 08/25/20 08/25/20 18:59 06:59 18:59 Intake Total 1134 240 Output Total 150 Balance 984 240 Weight 110.1 kg Intake: Oral 1134 240 Output: Urine 150 Other: Voiding Method Toilet Toilet - Labs CBC & Chem 7: 08/23/20 23:14 08/25/20 07:32 Labs: Abnormal Lab Results - Last 24 Hours (Table) 08/24/20 08/24/20 08/24/20 Range/Units 09:52 11:57 19:39 Carbon Dioxide (22-30) mmol/L BUN (7-17) mg/dL Creatinine (0.52-1.04) mg/dL POC Glucose (mg/dL) 119 H 141 H (75-99) mg/dL Procalcitonin 0.23 H (0.02-0.09) ng/mL 08/25/20 Range/Units 07:32 Carbon Dioxide 35 H (22-30) mmol/L BUN 44 H (7-17) mg/dL Creatinine 2.15 H (0.52-1.04) mg/dL POC Glucose (mg/dL) (75-99) mg/dL Procalcitonin (0.02-0.09) ng/mL
[2020-08-25 12:27] LABS: Glucose,Whole Blood 110 mg/dL (75-99)
--- NOTE | 2020-08-25 14:05 | P.PN ---
Subjective Progress Note Date: 08/25/20 This is a 60-year-old female patient at [facility] with past medical history significant for COPD, diabetes mellitus type 2, gastroesophageal reflux disease, hypertension, hyperlipidemia, generalized osteoarthritis, remote history of tobacco use and dependence. She gives history that she was recently hospitalized at [facility] with edema more so to the right lower extremity. She was placed on steroids which she thinks made her swelling worse. She was admitted for shortness of breath and continued shortness Soreness of breath at the time of discharge. She states she is short of breath with ambulation. No chest pain. She also was treated for left breast mastitis and placed on antibiotics. Patient states that she has had continued shortness of breath, no fever or chills. She continues to have erythema and edema to the left breast as well. She came into [facility] emergency center for evaluation. EKG was sinus rhythm with heart rate of 97 with nonspecific changes in the precordial leads. VQ scan is low probability for PE. Chest xray pleural effusions and left lower lobe pneumonia, possible small right-sided pneumothorax. Troponin 0.062, 0.055, 0.055, WBC 4.5, hemoglobin 11.9, platelets 276, d-dimer 7.02, sodium 143, potassium 5.1, creatinine 1.93, ProBNP 9410. patient admitted to the cardiac stepdown unit and consult in place with cardiology 08/25 and patient examined bedside. Continues to feel better. Improved shortness of breath and lower extremity swelling. Lasix reduced to 40 mg IV daily. Continue Keflex for cellulitis . Vitals are stable patient's blood pressure is running on the lower side. Last blood pressure reported to be 96/64 BP suggest a creatinine 2.15 BUN 44 A1c 7. Echo obtained on 08/24 suggest surveillance Ed Aury left ventricular hypertropia with normal ejection fraction 55-60% and trace mitral regurgitation and tricuspid regurgitation seen. REVIEW OF SYSTEMS Constitutional: No fever, no chills, no night sweats. No weight change. No weakness, fatigue or lethargy. No daytime sleepiness. EENT: No headache. No blurred vision or double vision, no loss of vision. No loss of Hearing, no ringing in the ears, no dizziness. No nasal drainage or congestion. No epistaxis. No sore throat. Lungs: Reports shortness of breath, cough, no sputum production. No wheezing. Reports shortness of breath with exertion. Cardiovascular: No chest pain, reports lower extremity edema. No palpitations. No paroxysmal nocturnal dyspnea. No orthopnea. No lightheadedness or dizziness. No syncopal episodes. Abdominal: No abdominal pain. No nausea, vomiting. No diarrhea. No constipat ion. No bloody or tarry stools.. No loss of appetite. Genitourinary: No dysuria, increased frequency, urgency. No urinary retention. Musculoskeletal: No myalgias. No muscle weakness, no gait dysfunction, no frequent falls. No back pain. No neck pain. Integumentary: No wounds, no lesions. No rash or pruritus. No unusual bruising. No change in hair or nails. Neurologic: No aphasia. No facial droop. No change in mentation. No head injury. No headache. No paralysis. No paresthesia. Psychiatric: No depression. No anxiety. . Endocrine: No abnormal blood sugars. No weight change. Objective - Vital Signs Vital signs: Vital Signs Temp 97.6 F 08/25/20 08:00 Pulse 74 08/25/20 12:00 Resp 20 08/25/20 12:00 BP 96/64 08/25/20 12:00 Pulse Ox 97 08/25/20 12:00 Intake & Output 08/24/20 08/25/20 08/25/20 18:59 06:59 18:59 Intake Total 1134 240 Output Total 150 Balance 984 240 Weight 110.1 kg Intake: Oral 1134 240 Output: Urine 150 Other: Voiding Method Toilet Toilet # Voids 2 - Exam PHYSICAL EXAMINATION Gen: This priscila 60-year-old -Thai female. She is resting in bed appe ars to be comfortable. No acute respiratory distress is noted at rest. HEENT: Head is atraumatic, normocephalic. Pupils equal, round. Sclerae is anicteric. NECK: Supple. No JVD. No lymphadenopathy. No thyromegaly. LUNGS: reveals diminished bilaterally, few expiratory wheeze. Accessory muscle usage No intercostal retractions. Breast exam does suggest swelling and redness involving the left breast no lymphadenopathy HEART: Regular rate and rhythm. No murmur. ABDOMEN: Soft. Bowel sounds are present. No masses. No tenderness. EXTREMITIES: right lower extremity with 1+ pedal edema. left lower externa with trace pedal edema. Dorsalis pedis +2 bilaterally. No calf tenderness. NEUROLOGICAL: Patient is awake, alert and oriented x3. - Labs CBC & Chem 7: 08/23/20 23:14 08/25/20 07:32 Labs: Abnormal Lab Results - Last 24 Hours (Table) 08/24/20 08/24/20 08/25/20 Range/Units 09:52 19:39 07:32 Carbon Dioxide (22-30) mmol/L BUN (7-17) mg/dL Creatinine (0.52-1.04) mg/dL POC Glucose (mg/dL) 141 H (75-99) mg/dL Hemoglobin A1c 7.0 H (4.0-6.0) % Procalcitonin 0.23 H (0.02-0.09) ng/mL 08/25/20 08/25/20 Range/Units 07:32 12:26 Carbon Dioxide 35 H (22-30) mmol/L BUN 44 H (7-17) mg/dL Creatinine 2.15 H (0.52-1.04) mg/dL POC Glucose (mg/dL) 110 H (75-99) mg/dL Hemoglobin A1c (4.0-6.0) % Procalcitonin (0.02-0.09) ng/mL Assessment and Plan Plan: 1. Acute diastolic heart failure. Cardiology consult appreciated. Echocardiogram has been ordered, Lasix 40 mg IV reduced to once a day, monitor I&O and daily weights. 2. Troponin elevation secondary to renal function. 3. Acute kidney injury. Avoid nephrotoxic agents. Okay to continue Lasix and losartan for now. Repeat labs in the morning 4. Chronic kidney disease stage III. 5. Left-sided mastitis. Continue Keflex. Ultrasound breast on 08/20 suggestive of cellulitis patient need mammogram after acute inflammation is resolved 6. Hypertension. Continue Norvasc 10 mg daily, losartan 100 mg daily, Lopressor 50 mg twice daily, clonidine 0.1 mg 3 times daily, hydralazine 50 mg every 12 hours,. Home medication list states lisinopril 40 and losartan. Patient verbalizes that lisinopril was discontinued. Discussed Lopressor and verapamil with cardiology and preference is to continue Lopressor and hold verapamil. 7. Hyperlipidemia. Continue atorvastatin 40 mg at bedtime 8. Diabetes mellitus type 2. Continue Levemir, dose will be clarified with the patient. NovoLog scale before meals and at bedtime. Hold Actos 30 mg daily. 8. COPD. continue albuterol inhaler 2 puffs every 6 hours as needed. 10. Tobacco use and dependence. Smoking cessation. 11. Gastroesophageal reflux disease. 12. Diabetic neuropathy. Continue gabapentin 400 mg twice daily.
[2020-08-25 16:45] LABS: Glucose,Whole Blood 96 mg/dL (75-99)
[2020-08-25] MEDS ORDERED: LORazepam 2 MG/ML INJ IV PRN (18:00)
[2020-08-25] MEDS ORDERED: LORazepam 2 MG/ML INJ IV ONE (18:01)
[2020-08-25 18:23] LABS: ABG Base Excess 8.1 mmol/L; ABG HCO3 35 mmol/L (21-25); ABG Oxygen Saturation 84.4 % (94-97); ABG PCO2 70 mmHg (35-45); ABG TCO2 37 mmol/L (19-24); Allen Test Performed? Yes
[2020-08-25 18:26] LABS: ABG PO2 52 mmHg (83-108)
[2020-08-25 18:57] LABS: Potassium 5.1 mmol/L (3.5-5.1)
[2020-08-25 18:58] LABS: Albumin 3.4 g/dL (3.5-5.0); Calcium 8.8 mg/dL (8.4-10.2); Magnesium 2.4 mg/dL (1.6-2.3); Total Bilirubin 0.3 mg/dL (0.2-1.3)
--- NOTE | 2020-08-25 20:11 | CT ---
EXAMINATION TYPE: CT brain wo con DATE OF EXAM: 08/25/2020 COMPARISON: 07/01/2017 HISTORY: lethargic CT DLP: 1098.4 mGycm Automated exposure control for dose reduction was used. Ventricles have normal size. There is no mass effect nor midline shift. There is no sign of intracran ial hemorrhage. There is mucosal thickening left maxillary sinus. There is normal aeration of the mas toid sinuses. Calvarium is intact. IMPRESSION: Left maxillary sinusitis unchanged. Negative CT scan of the brain.
[2020-08-25] MEDS ORDERED: FUROSEMIDE 10 MG/ML 4 ML VIAL IV STA (20:24)
[2020-08-25 20:29] LABS: Glucose,Whole Blood 74 mg/dL (75-99)
[2020-08-25] MEDS: ATORVASTATIN 40 MG TAB PO SCH (21:07)
[2020-08-25] MEDS: MONTELUKAST 10 MG TAB PO SCH (21:07)
[2020-08-26] MEDS ORDERED: DEXTROSE 50% SYRINGE 50 ML IVP ONE (05:56)
[2020-08-26 06:03] LABS: Glucose,Whole Blood 49 mg/dL (75-99)
[2020-08-26 06:15] LABS: Glucose,Whole Blood 117 mg/dL (75-99)
[2020-08-26] MEDS: INSULIN ASPART (NovoLOG) 100 UNIT/ML VIAL SQ SCH ×4 (06:19→21:41)
[2020-08-26] MEDS: glipiZIDE 5 MG TAB PO SCH (06:20)
[2020-08-26 07:23] LABS: Albumin 2.9 g/dL (3.5-5.0); Calcium 8.5 mg/dL (8.4-10.2); Total Bilirubin 0.3 mg/dL (0.2-1.3); Total Protein 5.6 g/dL (6.3-8.2)
--- NOTE | 2020-08-26 08:02 | XR ---
EXAMINATION TYPE: XR chest 1V portable DATE OF EXAM: 08/26/2020 COMPARISON: 08/23/2020 HISTORY: Shortness of breath TECHNIQUE: Single frontal view of the chest is obtained. FINDINGS findings The heart is markedly enlarged and the pulmonary vasculature is cephalized. The left lung base and di aphragm is obscured likely secondary to moderate pleural effusion and/or atelectasis. Pulmonary vascu lar congestion appears mildly improved in the interval. The left pleural effusion may be slightly red uced in size. IMPRESSION: Findings most consistent with moderate CHF with mild interval improvement since the prior study.
[2020-08-26 08:09] LABS: Glucose,Whole Blood 98 mg/dL (75-99)
[2020-08-26] MEDS: HEPARIN SODIUM,PORCINE 5,000 UNIT/ML 1 ML VIAL SQ SCH ×3 (08:49→23:53)
[2020-08-26] MEDS ORDERED: ERGOCALCIFEROL 1,250 MCG (50,000 IU) CAPSULE PO SCH (09:00)
[2020-08-26] MEDS: ASPIRIN 81 MG PO SCH (11:16)
[2020-08-26] MEDS: amLODIPine 10 MG TAB PO SCH (11:16)
[2020-08-26] MEDS: CEPHALEXIN 250 MG CAP PO SCH ×3 (11:17→21:42)
[2020-08-26] MEDS: LOSARTAN 50 MG TAB PO SCH (11:17)
[2020-08-26] MEDS: METOPROLOL TARTRATE 50 MG TAB PO SCH ×2 (11:17→21:41)
[2020-08-26] MEDS: NORTRIPTYLINE 25 MG CAP PO SCH (11:17)
[2020-08-26] MEDS: cloNIDine HCL 0.1 MG TAB PO SCH ×3 (11:17→21:42)
[2020-08-26] MEDS: FENOFIBRATE 160 MG TAB PO SCH (11:17)
[2020-08-26] MEDS: hydrALAZINE HCL 50 MG TAB PO SCH ×2 (11:17→21:41)
[2020-08-26] MEDS: SENNOSIDES-DOCUSATE SODIUM 1 EACH TAB PO SCH ×2 (11:18→21:41)
[2020-08-26] MEDS: GABAPENTIN 400 MG CAP PO SCH (11:20)
[2020-08-26] MEDS: BACLOFEN 10 MG TAB PO SCH (11:20)
[2020-08-26] MEDS: FUROSEMIDE 10 MG/ML 4 ML VIAL IV SCH (11:49)
--- NOTE | 2020-08-26 11:56 | P.NPCON ---
History of Present Illness - Reason for Consult Consult date: 08/26/20 acute renal failure - Chief Complaint Acute kidney injury - History of Present Illness This is a 60-year-old female seen in consultation because of acute kidney injury and chronic kidney disease stage III with a baseline creatinine of 1.38 on 01/14/2018. Creatinine subsequent to this was not available until admission and creatinine was 1.69 and then went up to 2.4 She is known with diabetes type 2 for supposedly only 40 years with no retinopathy or neuropathy, significant COPD, hypertension, recently hospitalized at [facility] with edema and released with persistent shortness of breath, therefore was admitted here on 08/24/2020 2 days ago -The hospital blood pressures have in the 90s. No nausea vomiting chest pain. She does have shortness of breath and currently at the time of this examination was on BiPAP. Her medications included amlodipine 10 mg clonidine 0.1 3 times a day Lasix 40 IV twice a day hydralazine 50 twice a day, metoprolol 50 twice a day She is known with proteinuria with a microalbumin to condition of 865 mg in 2018 but no recent labs available. Past Medical History Past Medical History: COPD, Diabetes Mellitus, GERD/Reflux, Hyperlipidemia, Hypertension, Osteoarthritis (OA) Additional Past Medical History / Comment(s): spondolysis History of Any Multi-Drug Resistant Organisms: None Reported Past Surgical History: Back Surgery, Hysterectomy, Orthopedic Surgery Additional Past Surgical History / Comment(s): RT shoulder surgery, LT arthroscopy knee. COLONOSCOPY. BACK SX X 2 Past Anesthesia/Blood Transfusion Reactions: No Reported Reaction Past Psychological History: No Psychological Hx Reported Smoking Status: Current some day smoker Past Alcohol Use History: Rare Additional Past Alcohol Use History / Comment(s): pt. smokes 2 cigs/week, has smoked since age of 12 Past Drug Use History: None Reported - Past Family History Mother Family Medical History: Diabetes Mellitus Medications and Allergies Home Medications Medication Instructions Recorded Confirmed Type HYDROcodone/APAP 10-325MG [[place] 1 tab PO Q6HR PRN 05/21/15 08/24/20 History 10-325] lisinopriL 40 mg PO DAILY 05/05/17 08/24/20 History Cephalexin [Keflex] 500 mg PO Q6HR #40 cap 08/20/20 08/24/20 Rx Albuterol Sulfate [Proair Hfa] 1 - 2 puff INHALATION RT-Q6H PRN 08/24/20 08/24/20 History Baclofen 10 mg PO BID 08/24/20 08/24/20 History Ergocalciferol [Vitamin D2 (1250 1,250 mcg PO Q7D 08/24/20 08/24/20 History Mcg = 04655 Iu)] Fenofibrate 160 mg PO DAILY 08/24/20 08/24/20 History INSULIN LISPRO (humaLOG) [humaLOG] See Protocol SQ AC-TID 08/24/20 08/24/20 History Insulin Glargine [Lantus] See Protocol SQ HS 08/24/20 08/24/20 History Loratadine [Claritin] 10 mg PO DAILY 08/24/20 08/24/20 History Losartan Potassium 100 mg PO DAILY 08/24/20 08/24/20 History Montelukast [Singulair] 10 mg PO HS 08/24/20 08/24/20 History Nortriptyline [Pamelor] 25 mg PO DAILY 08/24/20 08/24/20 History Pioglitazone [Actos] 30 mg PO DAILY 08/24/20 08/24/20 History Polyethylene Glycol 3350 [Miralax] 17 gm PO DAILY PRN 08/24/20 08/24/20 History Sennosides-Docusate Sodium 1 tab PO BID 08/24/20 08/24/20 History [Senokot-S] Triamcinolone 0.025% Cream 1 applic TOPICAL DAILY PRN 08/24/20 08/24/20 History [Kenalog 0.025% Cream] Verapamil HCl [Verapamil ER] 240 mg PO DAILY 08/24/20 08/24/20 History cloNIDine HCL [Catapres] 0.1 mg PO TID 08/24/20 08/24/20 History hydrALAZINE HCL 50 mg PO Q12H 08/24/20 08/24/20 History Allergies Allergy/AdvReac Type Severity Reaction Status Date / Time amoxicillin [Amoxicillin] Allergy Rash/Hives Verified 08/24/20 07:03 latanoprost AdvReac blurry Verified 08/24/20 07:03 vision prednisolone AdvReac Swelling Verified 08/24/20 07:03 steroids AdvReac affected Uncoded 08/20/20 16:13 eyes Physical Exam Vitals: Vital Signs Temp Pulse Pulse Resp BP Pulse Ox 08/26/20 08:34 89 08/26/20 08:22 88 08/26/20 08:00 90 20 119/65 92 L 08/26/20 03:05 98.4 F 76 14 97/58 96 08/26/20 03:00 14 08/25/20 23:05 97.7 F 80 14 100/59 96 08/25/20 19:35 97.9 F 84 18 98/55 91 L 08/25/20 16:00 73 20 98/62 96 08/25/20 12:00 74 20 96/64 97 Intake and Output 08/25/20 08/26/20 08/26/20 21:59 06:59 14:59 Intake Total Output Total Balance Intake: Oral Output: Urine Other: Voiding Method # Voids Weight On exam HEENT current she is on a BiPAP. HEENT exam no JVP neck is supple no facial asymmetry Lungs are significant for diminished breath sounds bilaterally, occasional wheeze and end expiration. Heart sounds are unremarkable but distant Abdomen soft nontender somewhat protuberant. Extremity examination reveals mild edema Neurologically awake alert oriented Results - Lab Results Most recent lab results ABG pH 7.30 (7.35-7.45) L 08/25/20 18:12 ABG pCO2 70 mmHg (35-45) H 08/25/20 18:12 ABG pO2 52 mmHg (83-108) L* 08/25/20 18:12 ABG HCO3 35 mmol/L (21-25) H 08/25/20 18:12 ABG O2 Saturation 84.4 % (94-97) L 08/25/20 18:12 Calcium 8.5 mg/dL (8.4-10.2) 08/26/20 07:01 Magnesium 2.4 mg/dL (1.6-2.3) H 08/25/20 18:17 08/23/20 23:14 08/26/20 07:01 Assessment and Plan Assessment: Impression 1. Acute kidney injury likely from low blood pressure, as well as congestive heart failure, and cardiorenal syndrome 2. Chronic kidney disease, stage III secondary diabetic nephropathy. Microalbumin to creatinine ratio of 865 mg in 2018 Creatinine is 1.3 in 2018 subsequently is 1.69 on admission. 3. Severe COPD on BiPAP 4. Diabetes mellitus for 4 years possibly longer. 5. Edema secondary to combination of amlodipine and diabetic nephropathy Recommendation 1. Reduce Norvasc from 10 g to 5 mg. His blood pressure is maintained reasonab ly we will try to discontinue it to reduce the edema 2. Check urine protein to creatinine ratio 3. Check postvoid residual 4. Check orthostatic changes Thank you for this consultation and we will continue to follow
[2020-08-26 12:08] LABS: Glucose,Whole Blood 105 mg/dL (75-99)
[2020-08-26 12:18] LABS: ABG HCO3 34 mmol/L (21-25); ABG Oxygen Saturation 96.9 % (94-97); ABG PH 7.28 (7.35-7.45); ABG PO2 86 mmHg (83-108); ABG TCO2 36 mmol/L (19-24); Allen Test Performed? Yes
[2020-08-26 12:23] LABS: ABG PCO2 73 mmHg (35-45)
--- NOTE | 2020-08-26 13:05 | P.PN ---
Subjective Progress Note Date: 08/26/20 HISTORY OF PRESENTING ILLNESS This is a pleasant 60-year-old -[place]i female past medical history significant for hypertension, dyslipidemia, diabetes mellitus, COPD, chronic nicotine dependence, chronic kidney disease and obesity. 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 In [address] Khan in the office secondary to abnormal stress test and underwent a cardiac catheterization revealing normal coronary arteries with no obstructive disease. We have been asked to see in consultation for heart failure. Due to to the hospital with a three-week history of shortness of breath. She was treated at [facility] on August 09 with steroids and updrafts and thought to have an exacerbation of COPD. However the patient states she has not had stable or comfortable breathing since that time. Her breathing at times is worse with exertion. She has also noticed orthopnea and paroxysmal woken up at night short of breath. She is also concerned about lower extremity edema, worse on the right. She denies symptoms of chest pain, dizziness or palpitations. There is no old echocardiogram for review. DIAGNOSTICS EKG reveals sinus mechanism heart rate of 97 with nonspecific changes in the precordial leads. VQ scan is low probability for PE. Chest xray pleural effusions and left lower lobe pneumonia, possible small right-sided pneumothorax. Laboratory reviewed, troponin 0.062, 0.055, 0.055, WBC 4.5, hemoglobin 11.9, platelets 276, d-dimer 7.02, sodium 143, potassium 5.1, creatinine 1.93, ProBNP 9410. Current cardiac medications include lisinopril 40 mg daily although the patient does not believe she is taking this medication any more, hydralazine 50 mg twice a day, clonidine 0.1 mg 3 times a day, verapamil 240 mg daily, losartan 100 mg daily and fenofibrate. 08/25: Patient states that her breathing is better today. She is on Lasix 40 mg IV twice daily. She does continue to have some lower extremity edema. We'll plan to repeat chest x-ray in the morning. She has been afebrile, heart rate 89, blood pressure 129/88, pulse ox 99% on 3 L nasal cannula. Echocardiogram reveals EF of 55-60% with severe concentric left hypertrophy, trace mitral regurgitation, trace tricuspid regurgitation. BUN 44 and creatinine 2.15, potassium 5.0. 3/14: Patient to increase in her renal function with BUN of 51 creatinine 2.4 and nephrology consult added. Patient was decreased yesterday to Lasix 40 mg IV daily. Heart rate has been 88, blood pressure 119/65. Pulse ox 92% on 2 L. Chest x-ray reveals consistent with moderate heart failure with mild interval improvement. Patient is having a neurological workup for tremors rule out seizures. PHYSICAL EXAMINATION CONSTITUTIONAL: No apparent distress. Obese. HEENT: Head is normocephalic. Pupils are equal, round. Sclerae anicteric. Mucous membranes of the mouth are moist. No JVD. No carotid bruit. CHEST EXAMINATION: Rales at the left mid lobe, diminished bilaterally, faint expiratory wheezes anteriorly and no rhonchi. No chest wall tenderness is noted on palpation or with deep breathing. HEART EXAMINATION: Regular rate and rhythm. S1, S2 heard. No murmurs, gallops or rub. ABDOMEN: Soft, nontender. Positive bowel sounds. EXTREMITIES: 2+ peripheral pulses, right lower extremity 1+ pitting edema, trace edema on the left and no calf tenderness. NEUROLOGIC EXAMINATION: Patient is awake, alert and oriented x3. ASSESSMENT Acute diastolic heart failure Troponin elevation secondary to renal function Acute kidney injury, chronic kidney disease stage III Hypertension Dyslipidemia Diabetes mellitus COPD Chronic nicotine dependence Obesity, BMI 39 PLAN Continue IV Lasix 40 mg daily Document accurate intake and output along with daily weights. Continue aspirin 81 mg daily and atorvastatin 40 mg daily. Patient should not be on lisinopril, verapamil Consult added for nephrology for acute kidney injury We will continue to follow and make recommendations accordingly. Thank you kindly for this consultation. Nurse Practitioner note has been reviewed, I agree with a documented findings and plan of care. Patient was seen and examined. Objective - Vital Signs Vital signs: Vital Signs Temp 98.4 F 08/26/20 03:05 Pulse 89 08/26/20 08:34 Resp 20 08/26/20 08:00 BP 119/65 08/26/20 08:00 Pulse Ox 92 L 08/26/20 08:00 Intake & Output 08/25/20 08/26/20 08/26/20 17:59 06:59 18:59 Intake Total Output Total Balance Weight Intake: Oral Output: Urine Other: Voiding Method # Voids - Labs CBC & Chem 7: 08/23/20 23:14 08/26/20 07:01 Labs: Abnormal Lab Results - Last 24 Hours (Table) 08/25/20 08/25/20 08/25/20 Range/Units 07:32 12:26 18:12 ABG pH 7.30 L (7.35-7.45) ABG pCO2 70 H (35-45) mmHg ABG pO2 52 L* (83-108) mmHg ABG HCO3 35 H (21-25) mmol/L ABG Total CO2 37 H (19-24) mmol/L ABG O2 Saturation 84.4 L (94-97) % Carbon Dioxide (22-30) mmol/L BUN (7-17) mg/dL Creatinine (0.52-1.04) mg/dL Glucose (74-99) mg/dL POC Glucose (mg/dL) 110 H (75-99) mg/dL Hemoglobin A1c 7.0 H (4.0-6.0) % Magnesium (1.6-2.3) mg/dL Total Protein (6.3-8.2) g/dL Albumin (3.5-5.0) g/dL 08/25/20 08/25/20 08/26/20 Range/Units 18:17 20:23 05:55 ABG pH (7.35-7.45) ABG pCO2 (35-45) mmHg ABG pO2 (83-108) mmHg ABG HCO3 (21-25) mmol/L ABG Total CO2 (19-24) mmol/L ABG O2 Saturation (94-97) % Carbon Dioxide 32 H (22-30) mmol/L BUN 50 H (7-17) mg/dL Creatinine 2.37 H (0.52-1.04) mg/dL Glucose 54 L (74-99) mg/dL POC Glucose (mg/dL) 74 L 49 L (75-99) mg/dL Hemoglobin A1c (4.0-6.0) % Magnesium 2.4 H (1.6-2.3) mg/dL Total Protein 6.0 L (6.3-8.2) g/dL Albumin 3.4 L (3.5-5.0) g/dL 08/26/20 08/26/20 Range/Units 06:13 07:01 ABG pH (7.35-7.45) ABG pCO2 (35-45) mmHg ABG pO2 (83-108) mmHg ABG HCO3 (21-25) mmol/L ABG Total CO2 (19-24) mmol/L ABG O2 Saturation (94-97) % Carbon Dioxide 33 H (22-30) mmol/L BUN 51 H (7-17) mg/dL Creatinine 2.40 H (0.52-1.04) mg/dL Glucose (74-99) mg/dL POC Glucose (mg/dL) 117 H (75-99) mg/dL Hemoglobin A1c (4.0-6.0) % Magnesium (1.6-2.3) mg/dL Total Protein 5.6 L (6.3-8.2) g/dL Albumin 2.9 L (3.5-5.0) g/dL
[2020-08-26] MEDS ORDERED: levETIRAcetam IV 1,000 MG in SALINE 1 100ML.BAG IVPB STA (13:09)
[2020-08-26 14:48] LABS: ABG Base Excess 7.5 mmol/L; ABG HCO3 34 mmol/L (21-25); ABG Oxygen Saturation 97.5 % (94-97); ABG PH 7.28 (7.35-7.45); ABG PO2 90 mmHg (83-108); ABG TCO2 37 mmol/L (19-24); Allen Test Performed? Yes
[2020-08-26 14:54] LABS: ABG PCO2 73 mmHg (35-45)
--- NOTE | 2020-08-26 15:25 | P.PN ---
Subjective Progress Note Date: 08/26/20 This is a 60-year-old female patient at [facility] with past medical history significant for COPD, diabetes mellitus type 2, gastroesophageal reflux disease, hypertension, hyperlipidemia, generalized osteoarthritis, remote history of tobacco use and dependence. She gives history that she was recently hospitalized at [facility] with edema more so to the right lower extremity. She was placed on steroids which she thinks made her swelling worse. She was admitted for shortness of breath and continued shortness Soreness of breath at the time of discharge. She states she is short of breath with ambulation. No chest pain. She also was treated for left breast mastitis and placed on antibiotics. Patient states that she has had continued shortness of breath, no fever or chills. She continues to have erythema and edema to the left breast as well. She came into [facility] emergency center for evaluation. EKG was sinus rhythm with heart rate of 97 with nonspecific changes in the precordial leads. VQ scan is low probability for PE. Chest xray pleural effusions and left lower lobe pneumonia, possible small right-sided pneumothorax. Troponin 0.062, 0.055, 0.055, WBC 4.5, hemoglobin 11.9, platelets 276, d-dimer 7.02, sodium 143, potassium 5.1, creatinine 1.93, ProBNP 9410. patient admitted to the cardiac stepdown unit and consult in place with cardiology 08/25 and patient examined bedside. Continues to feel better. Improved shortness of breath and lower extremity swelling. Lasix reduced to 40 mg IV daily. Continue Keflex for cellulitis . Vitals are stable patient's blood pressure is running on the lower side. Last blood pressure reported to be 96/64 BP suggest a creatinine 2.15 BUN 44 A1c 7. Echo obtained on 08/24 suggest surveillance Ed Aury left ventricular hypertropia with normal ejection fraction 55-60% and trace mitral regurgitation and tricuspid regurgitation seen. 08/26 patient examined bedside. A team was called on the patient earlier today due to concern for jerking movements involving the upper extremity. Patient was also found to be unresponsive ABG was obtained pH of 7.28 pCO2 of 73 pO2 of 90 bicarb 37. Patient was placed on BiPAP with improvement in mental status. Jerking movements were noted in the upper extremities. Multiple medications including baclofen, gabapentin and glipizide was discontinued. Patient did have episodes of hypoglycemia this morning and that was corrected. On assessment today mild jerking movement of the upper extremity on the left was noted. EEG ordered. CAT scan of the head was obtained and was negative for any acute process. Neurology was consulted. Detailed discussion on patient's prognosis was done with the daughter bedside. Patient's daughter was concerned of her mot her's health and wanted her transferred to outside facility or leaving AMA. On explanation of patient's condition and her intolerability to nasal cannula, patient daughter agreed on keeping the patient in the hospital and not going against medical advise. Nephrology was consulted, urine protein creatinine ratio obtained as there is a concern for diabetic nephropathy contributing to patient's lower extremity edema. Amlodipine was discontinued to improve patient's lower extremity swelling. Patient to stay on BiPAP today on and off. Repeat ABG to be obtained after 3 hours on BiPAP today. If patient does not improve on the above measures, Patient will be transferred to ICU. Patient's condition is guarded and family updated on the plan REVIEW OF SYSTEMS Constitutional: No fever, no chills, no night sweats. No weight change. No weakness, fatigue or lethargy. No daytime sleepiness. EENT: No headache. No blurred vision or double vision, no loss of vision. No loss of Hearing, no ringing in the ears, no dizziness. No nasal drainage or congestion. No epistaxis. No sore throat. Lungs: Reports shortness of breath, cough, no sputum production. No wheezing. Reports shortness of breath with exertion. Cardiovascular: No chest pain, reports lower extremity edema. No palpitations. No paroxysmal nocturnal dyspnea. No orthopnea. No lightheadedness or dizziness. No syncopal episodes. positive for dyspnea Abdominal: No abdominal pain. No nausea, vomiting. No diarrhea. No constipation. No bloody or tarry stools.. No loss of appetite. Genitourinary: No dysuria, increased frequency, urgency. No urinary retention. Musculoskeletal: No myalgias. No muscle weakness, no gait dysfunction, no freq uent falls. No back pain. No neck pain. Integumentary: No wounds, no lesions. No rash or pruritus. No unusual bruising. No change in hair or nails. Neurologic: No aphasia. No facial droop. No change in mentation. No head injury. No headache. No paralysis. No paresthesia. positive for jerking movement involving the left upper extremity Psychiatric: No depression. No anxiety. . Endocrine: No abnormal blood sugars. No weight change. Objective - Vital Signs Vital signs: Vital Signs Temp 98.4 F 08/26/20 03:05 Pulse 86 08/26/20 12:00 Resp 20 08/26/20 12:00 BP 117/64 08/26/20 12:00 Pulse Ox 97 08/26/20 12:00 Intake & Output 08/25/20 08/26/20 08/26/20 17:59 06:59 18:59 Intake Total Output Total Balance Weight Intake: Oral Output: Urine Other: Voiding Method # Voids - Exam PHYSICAL EXAMINATION Gen: This priscila 60-year-old -[place]uean female. She is resting in bed appears to be comfortable. No acute respiratory distress is noted at rest. HEENT: Head is atraumatic, normocephalic. Pupils equal, round. Sclerae is anicteric. NECK: Supple. No JVD. No lymphadenopathy. No thyromegaly. LUNGS: reveals diminished bilaterally, few expiratory wheeze. Accessory muscle usage No intercostal retractions. Breast exam does suggest swelling and redness involving the left breast no lymphadenopathy HEART: Regular rate and rhythm. No murmur. ABDOMEN: Soft. Bowel sounds are present. No masses. No tenderness. EXTREMITIES: right lower extremity with 1+ pedal edema. left lower externa with trace pedal edema. Dorsalis pedis +2 bilaterally. No calf tenderness. NEUROLOGICAL: Patient is awake, alert and oriented x3. Jerking movement upper extremity noted on the left - Labs CBC & Chem 7: 08/23/20 23:14 08/26/20 07:01 Labs: Abnormal Lab Results - Last 24 Hours (Table) 08/25/20 08/25/20 08/25/20 Range/Units 18:12 18:17 20:23 ABG pH 7.30 L (7.35-7.45) ABG pCO2 70 H (35-45) mmHg ABG pO2 52 L* (83-108) mmHg ABG HCO3 35 H (21-25) mmol/L ABG Total CO2 37 H (19-24) mmol/L ABG O2 Saturation 84.4 L (94-97) % Carbon Dioxide 32 H (22-30) mmol/L BUN 50 H (7-17) mg/dL Creatinine 2.37 H (0.52-1.04) mg/dL Glucose 54 L (74-99) mg/dL POC Glucose (mg/dL) 74 L (75-99) mg/dL Magnesium 2.4 H (1.6-2.3) mg/dL Total Protein 6.0 L (6.3-8.2) g/dL Albumin 3.4 L (3.5-5.0) g/dL 08/26/20 08/26/20 08/26/20 Range/Units 05:55 06:13 07:01 ABG pH (7.35-7.45) ABG pCO2 (35-45) mmHg ABG pO2 (83-108) mmHg ABG HCO3 (21-25) mmol/L ABG Total CO2 (19-24) mmol/L ABG O2 Saturation (94-97) % Carbon Dioxide 33 H (22-30) mmol/L BUN 51 H (7-17) mg/dL Creatinine 2.40 H (0.52-1.04) mg/dL Glucose (74-99) mg/dL POC Glucose (mg/dL) 49 L 117 H (75-99) mg/dL Magnesium (1.6-2.3) mg/dL Total Protein 5.6 L (6.3-8.2) g/dL Albumin 2.9 L (3.5-5.0) g/dL 08/26/20 08/26/20 08/26/20 Range/Units 12:07 12:10 12:14 ABG pH 7.28 L 7.28 L (7.35-7.45) ABG pCO2 73 H* 73 H* (35-45) mmHg ABG pO2 (83-108) mmHg ABG HCO3 34 H 34 H (21-25) mmol/L ABG Total CO2 36 H 37 H (19-24) mmol/L ABG O2 Saturation 97.5 H (94-97) % Carbon Dioxide (22-30) mmol/L BUN (7-17) mg/dL Creatinine (0.52-1.04) mg/dL Glucose (74-99) mg/dL POC Glucose (mg/dL) 105 H (75-99) mg/dL Magnesium (1.6-2.3) mg/dL Total Protein (6.3-8.2) g/dL Albumin (3.5-5.0) g/dL Assessment and Plan Plan: 1. Acute diastolic heart failure. Cardiology consult appreciated. Echocardiogram has been ordered, Lasix 40 mg IV reduced to once a day, monitor I&O and daily weights. 2. Troponin elevation secondary to renal function. 3. Acute kidney injury secondary to combination of diabetic nephropathy and cardiorenal syndrome. Avoid nephrotoxic agents. Okay to continue Lasix and losartan for now. Nephrology consulted Repeat labs in the morning 4. Chronic kidney disease stage III. Likely secondary to diabetic nephropathy urine protein and creatinine ratio obtained. 5. Left-sided mastitis. Continue Keflex. Ultrasound breast on 08/20 suggestive of cellulitis patient need mammogram after acute inflammation is resolved 6. Hypertension. Norvas discontinued lower extremity edema, losartan 100 mg daily, Lopressor 100 mg once daily, clonidine 0.1 mg 3 times daily, hydralazine 50 mg every 12 hours,. Home medication list states lisinopril 40 and losartan. Patient verbalizes that lisinopril was discontinued. Discussed Lopressor and verapamil with cardiology and preference is to continue Lopressor and hold verapamil. 7. Hyperlipidemia. Continue atorvastatin 40 mg at bedtime 8. Diabetes mellitus type 2. Continue Levemir, dose will be clarified with the patient. NovoLog scale before meals and at bedtime. Hold Actos 30 mg daily. Glipizide discontinued 8. COPD. continue albuterol inhaler 2 puffs every 6 hours as needed. 10. Tobacco use and dependence. Smoking cessation. 11. Gastroesophageal reflux disease. 12. Diabetic neuropathy. Gabapentin discontinuing need to reduce her dose on discharge #13. Intermittent jerking movement on the left. Rule out seizures. EEG ordered. Patient's jerkiness is likely related to acute uremia and metabolic encephalopathy. Hold baclofen hold glipizide hold gabapentin Stat dose of Keppra was given by Dr. Charles. #14 acute hypoxic hypercapnic respiratory failure secondary to acute diastolic congestive heart failure. Continue Lasix at 40 IV daily. Continue BiPAP intermittently. Chest x-ray with moderate pleural effusion. Pulmonary consulted for possible thoracentesis #15 acute metabolic encephalopathy likely secondary to medications, acute uremia, CO2 retention and underlying obstructive sleep apnea. Remove contributing medication. Hold gabapentin, hold baclofen. Nephrology consulted.
[2020-08-26 17:16] LABS: Glucose,Whole Blood 40 mg/dL (75-99)
[2020-08-26 17:17] LABS: Creatinine,Urine Random 45.3 mg/dL; Protein/Creatinine Ratio,Urine 0.905
--- NOTE | 2020-08-26 17:26 | P.CNNES ---
History of Present Illness Consult date: 08/26/20 History of Present Illness: The patient is a 60-year-old -[place]ir[place] female who is seen in neurologic consultation on August 26, 2020 via teleneurology. The patient presented to the emergency department with complaints of shortness of breath. She has continued to be short of breath since her admission. ABGs were drawn and the patient's CO2 level was markedly elevated. Apparently yesterday, the patient began to have shaking of her arms. According to her nurse, the shaking was quite severe. Patient is unable to even feed herself, or hold onto anything. The movements are jerking type movements. There is no loss of consciousness. There is no abnormal movements of the head. The patient's nurse reports that when the patient begins to dose off, her eyes s eemed to roll into the back of her head and she stares off. In review of labs, PCO2 is noted to be elevated at 73. The patient also had an episode of hypoxia with PO2 of 52. Patient's BUN is elevated at 51 with a creatinine of 2.4. 2-D echo reveals signs of severe left ventricular hypertrophy. Past Medical History Past Medical History: COPD, Diabetes Mellitus, GERD/Reflux, Hyperlipidemia, Hypertension, Osteoarthritis (OA) Additional Past Medical History / Comment(s): spondolysis History of Any Multi-Drug Resistant Organisms: None Reported Past Surgical History: Back Surgery, Hysterectomy, Orthopedic Surgery Additional Past Surgical History / Comment(s): RT shoulder surgery, LT arthroscopy knee. COLONOSCOPY. BACK SX X 2 Past Anesthesia/Blood Transfusion Reactions: No Reported Reaction Past Psychological History: No Psychological Hx Reported Smoking Status: Current some day smoker Past Alcohol Use History: Rare Additional Past Alcohol Use History / Comment(s): pt. smokes 2 cigs/week, has smoked since age of 12 Past Drug Use History: None Reported - Past Family History Mother Family Medical History: Diabetes Mellitus Medications and Allergies Home Medications Medication Instructions Recorded Confirmed Type HYDROcodone/APAP 10-325MG [[place] 1 tab PO Q6HR PRN 05/21/15 08/24/20 History 10-325] lisinopriL 40 mg PO DAILY 05/05/17 08/24/20 History Cephalexin [Keflex] 500 mg PO Q6HR #40 cap 08/20/20 08/24/20 Rx Albuterol Sulfate [Proair Hfa] 1 - 2 puff INHALATION RT-Q6H PRN 08/24/20 08/24/20 History Baclofen 10 mg PO BID 08/24/20 08/24/20 History Ergocalciferol [Vitamin D2 (1250 1,250 mcg PO Q7D 08/24/20 08/24/20 History Mcg = 09297 Iu)] Fenofibrate 160 mg PO DAILY 08/24/20 08/24/20 History INSULIN LISPRO (humaLOG) [humaLOG] See Protocol SQ AC-TID 08/24/20 08/24/20 History Insulin Glargine [Lantus] See Protocol SQ HS 08/24/20 08/24/20 History Loratadine [Claritin] 10 mg PO DAILY 08/24/20 08/24/20 History Losartan Potassium 100 mg PO DAILY 08/24/20 08/24/20 History Montelukast [Singulair] 10 mg PO HS 08/24/20 08/24/20 History Nortriptyline [Pamelor] 25 mg PO DAILY 08/24/20 08/24/20 History Pioglitazone [Actos] 30 mg PO DAILY 08/24/20 08/24/20 History Polyethylene Glycol 3350 [Miralax] 17 gm PO DAILY PRN 08/24/20 08/24/20 History Sennosides-Docusate Sodium 1 tab PO BID 08/24/20 08/24/20 History [Senokot-S] Triamcinolone 0.025% Cream 1 applic TOPICAL DAILY PRN 08/24/20 08/24/20 History [Kenalog 0.025% Cream] Verapamil HCl [Verapamil ER] 240 mg PO DAILY 08/24/20 08/24/20 History cloNIDine HCL [Catapres] 0.1 mg PO TID 08/24/20 08/24/20 History hydrALAZINE HCL 50 mg PO Q12H 08/24/20 08/24/20 History Allergies Allergy/AdvReac Type Severity Reaction Status Date / Time amoxicillin [Amoxicillin] Allergy Rash/Hives Verified 08/24/20 07:03 latanoprost AdvReac blurry Verified 08/24/20 07:03 vision prednisolone AdvReac Swelling Verified 08/24/20 07:03 steroids AdvReac affected Uncoded 08/20/20 16:13 eyes Physical Examination - Vital Signs Vital Signs: Vital Signs Temp Pulse Pulse Resp BP Pulse Ox 08/26/20 08:34 89 08/26/20 08:22 88 08/26/20 08:00 90 20 119/65 92 L 08/26/20 03:05 98.4 F 76 14 97/58 96 08/26/20 03:00 14 08/25/20 23:05 97.7 F 80 14 100/59 96 08/25/20 19:35 97.9 F 84 18 98/55 91 L 08/25/20 16:00 73 20 98/62 96 08/25/20 12:00 74 20 96/64 97 Intake and Output 08/25/20 08/26/20 08/26/20 21:59 06:59 14:59 Intake Total Output Total Balance Intake: Oral Output: Urine Other: Voiding Method # Voids Weight Gen.: The patient is reclining in the bed. She is obese. She has BIPAP mask in place. HEENT: Head is atraumatic, normocephalic. Fundus not visualized. There is no scleral icterus. Mucous membranes are moist. Heart: Regular rate and rhythm Neurological examination Mental status: The patient is awake and alert. She has some difficulty following instructions. Her speech is fluent. Cranial nerves: Pupils are 3 mm, equal and reactive. Visual valdez are full to confrontation. Extraocular movements are intact. There is no nystagmus. Facial sensation is intact. There is no facial asymmetry. Hearing is grossly intact. Uvula and palate are midline. Shoulder shrug is symmetric. Tongue protrudes midline. Motor: Strength is 5/5 in the upper extremities. Hip flexor strength is diminished. Left hip flexors shrug within the right. Ankle plantar and dorsiflexors are 5/5. Abnormal movements: There is evidence of asterixis as well as mild clonus in the bilateral upper extremities. There is mild clonus in the lower extremities as well. There is no fine motor tremor. Sensation: Grossly intact to light touch throughout. There is no extinction with double simultaneous stimulation. Coordination: The patient is able to perform [id number] testing. As she does this very slowly and needs repeat instructions. Patient is able to perform [id number]-dk-[id number] testing with the left leg. Mild clonus and weakness interferes with right-sided [id number]-[id number] testing. Deep tendon reflexes: Difficult to assess secondary to mild clonus Results - Laboratory Findings CBC and BMP: 08/23/20 23:14 08/26/20 07:01 Abnormal Lab Findings: Abnormal Labs 08/23/20 08/23/20 08/23/20 23:14 23:14 23:14 MCHC 29.6 L RDW 17.2 H Lymphocytes # 0.2 L D-Dimer 7.02 H ABG pH ABG pCO2 ABG pO2 ABG HCO3 ABG Total CO2 ABG O2 Saturation Chloride 108 H Carbon Dioxide BUN 32 H Creatinine 1.93 H Glucose 157 H POC Glucose (mg/dL) Hemoglobin A1c Plasma Lactic Acid Loco Magnesium Troponin I Total Protein 5.8 L Albumin 3.2 L Procalcitonin 08/23/20 08/23/20 08/24/20 23:14 23:14 03:20 MCHC RDW Lymphocytes # D-Dimer ABG pH ABG pCO2 ABG pO2 ABG HCO3 ABG Total CO2 ABG O2 Saturation Chloride Carbon Dioxide BUN Creatinine Glucose POC Glucose (mg/dL) Hemoglobin A1c Plasma Lactic Acid Loco 0.6 L Magnesium Troponin I 0.062 H* 0.055 H* Total Protein Albumin Procalcitonin 08/24/20 08/24/20 08/24/20 05:30 06:08 09:52 MCHC RDW Lymphocytes # D-Dimer ABG pH ABG pCO2 ABG pO2 ABG HCO3 ABG Total CO2 ABG O2 Saturation Chloride Carbon Dioxide BUN Creatinine Glucose POC Glucose (mg/dL) 189 H Hemoglobin A1c Plasma Lactic Acid Loco Magnesium Troponin I 0.055 H* Total Protein Albumin Procalcitonin 0.23 H 08/24/20 08/24/20 08/25/20 11:57 19:39 07:32 MCHC RDW Lymphocytes # D-Dimer ABG pH ABG pCO2 ABG pO2 ABG HCO3 ABG Total CO2 ABG O2 Saturation Chloride Carbon Dioxide BUN Creatinine Glucose POC Glucose (mg/dL) 119 H 141 H Hemoglobin A1c 7.0 H Plasma Lactic Acid Loco Magnesium Troponin I Total Protein Albumin Procalcitonin 08/25/20 08/25/20 08/25/20 07:32 12:26 18:12 MCHC RDW Lymphocytes # D-Dimer ABG pH 7.30 L ABG pCO2 70 H ABG pO2 52 L* ABG HCO3 35 H ABG Total CO2 37 H ABG O2 Saturation 84.4 L Chloride Carbon Dioxide 35 H BUN 44 H Creatinine 2.15 H Glucose POC Glucose (mg/dL) 110 H Hemoglobin A1c Plasma Lactic Acid Loco Magnesium Troponin I Total Protein Albumin Procalcitonin 08/25/20 08/25/20 08/26/20 18:17 20:23 05:55 MCHC RDW Lymphocytes # D-Dimer ABG pH ABG pCO2 ABG pO2 ABG HCO3 ABG Total CO2 ABG O2 Saturation Chloride Carbon Dioxide 32 H BUN 50 H Creatinine 2.37 H Glucose 54 L POC Glucose (mg/dL) 74 L 49 L Hemoglobin A1c Plasma Lactic Acid Loco Magnesium 2.4 H Troponin I Total Protein 6.0 L Albumin 3.4 L Procalcitonin 08/26/20 08/26/20 06:13 07:01 MCHC RDW Lymphocytes # D-Dimer ABG pH ABG pCO2 ABG pO2 ABG HCO3 ABG Total CO2 ABG O2 Saturation Chloride Carbon Dioxide 33 H BUN 51 H Creatinine 2.40 H Glucose POC Glucose (mg/dL) 117 H Hemoglobin A1c Plasma Lactic Acid Loco Magnesium Troponin I Total Protein 5.6 L Albumin 2.9 L Procalcitonin Assessment and Plan Assessment: 1. Myoclonus and asterixis likely secondary to hypercarbia and hypoxia, as well as acute on chronic renal failure 2. Mild encephalopathy secondary to hypercarbia, hypoxemia and acute renal failure Plan: 1. Will start Keppra for control of myoclonic movements 2. We'll check stat ammonia level 3. The most effective treatment of myoclonus is reduction of the CO2 level Time with Patient: Greater than 30 (spent 40 minutes with patient via teleneurology)
[2020-08-26 17:27] LABS: Glucose,Whole Blood 40 mg/dL (75-99)
[2020-08-26 17:32] LABS: Glucose,Whole Blood 59 mg/dL (75-99)
[2020-08-26 17:45] LABS: Glucose,Whole Blood 91 mg/dL (75-99)
[2020-08-26 20:17] LABS: Glucose,Whole Blood 84 mg/dL (75-99)
[2020-08-26] MEDS ORDERED: GABAPENTIN 300 MG CAP PO SCH (21:00)
[2020-08-26] MEDS: MONTELUKAST 10 MG TAB PO SCH (21:41)
[2020-08-26] MEDS: ATORVASTATIN 40 MG TAB PO SCH (21:41)
[2020-08-27 01:57] LABS: Glucose,Whole Blood 91 mg/dL (75-99)
[2020-08-27 06:03] LABS: Anisocytosis Slight; Basophils % (A) 0 %; Eosinophils # (A) 0.1 k/uL (0-0.7); Eosinophils % (A) 3 %; HCT 39.9 % (34.0-46.0); HGB 11.8 gm/dL (11.4-16.0); Hypochromasia Marked; Lymphocytes # (A) 0.6 k/uL (1.0-4.8); Lymphocytes % (A) 21 %; MCH 26.3 pg (25.0-35.0); MCHC 29.5 g/dL (31.0-37.0); MCV 89.3 fL (80.0-100.0); Mean Platelet Volume 8.9; Monocytes # (A) 0.3 k/uL (0-1.0); Monocytes % (A) 9 %; Neutrophils # (A) 1.8 k/uL (1.3-7.7); Neutrophils % (A) 65 %; Platelet Count 264 k/uL (150-450); RBC 4.47 m/uL (3.80-5.40); RDW 16.8 % (11.5-15.5); WBC 2.8 k/uL (3.8-10.6)
[2020-08-27 06:06] LABS: Glucose,Whole Blood 51 mg/dL (75-99)
[2020-08-27] MEDS: INSULIN ASPART (NovoLOG) 100 UNIT/ML VIAL SQ SCH ×4 (06:09→21:24)
[2020-08-27 06:15] LABS: Albumin 2.7 g/dL (3.5-5.0); Calcium 8.4 mg/dL (8.4-10.2); Potassium 5.2 mmol/L (3.5-5.1); Total Bilirubin 0.3 mg/dL (0.2-1.3); Total Protein 5.2 g/dL (6.3-8.2)
[2020-08-27 06:21] LABS: Glucose,Whole Blood 54 mg/dL (75-99)
[2020-08-27 06:35] LABS: Glucose,Whole Blood 75 mg/dL (75-99)
[2020-08-27] MEDS ORDERED: amLODIPine 5 MG TAB PO SCH (09:00)
[2020-08-27] MEDS: FENOFIBRATE 160 MG TAB PO SCH (09:53)
[2020-08-27] MEDS: NORTRIPTYLINE 25 MG CAP PO SCH (09:53)
[2020-08-27] MEDS: METOPROLOL TARTRATE 50 MG TAB PO SCH ×2 (09:53→21:09)
[2020-08-27] MEDS: LOSARTAN 50 MG TAB PO SCH (09:53)
[2020-08-27] MEDS: CEPHALEXIN 250 MG CAP PO SCH ×3 (09:53→21:09)
[2020-08-27] MEDS: hydrALAZINE HCL 50 MG TAB PO SCH ×2 (09:53→21:09)
[2020-08-27] MEDS: cloNIDine HCL 0.1 MG TAB PO SCH ×3 (09:53→21:09)
[2020-08-27] MEDS: ASPIRIN 81 MG PO SCH (09:53)
[2020-08-27] MEDS: SENNOSIDES-DOCUSATE SODIUM 1 EACH TAB PO SCH ×2 (09:53→21:09)
[2020-08-27] MEDS: levETIRAcetam IV 500 MG in SODIUM CHLORIDE 0.9% 100 ML IVPB SCH ×2 (09:54→09:55)
[2020-08-27] MEDS: HEPARIN SODIUM,PORCINE 5,000 UNIT/ML 1 ML VIAL SQ SCH ×3 (09:54→23:32)
[2020-08-27] MEDS: FUROSEMIDE 10 MG/ML 4 ML VIAL IV SCH (09:54)
[2020-08-27 12:31] LABS: Glucose,Whole Blood 70 mg/dL (75-99)
--- NOTE | 2020-08-27 12:42 | P.PN ---
Subjective Patient is seen in follow-up for acute kidney injury and chronic kidney disease. Renal function better today. She is maintained on IV Lasix. Edema improving. Nonoliguric. Currently on 3 L nasal cannula. No chest pain or shortness of breath. Oral intake fair. Vital signs are stable. General: The patient appeared well nourished and normally developed. HEENT: Head exam is unremarkable. Neck is without jugular venous distension. LUNGS: Breath sounds decreased. HEART: Rate and Rhythm are regular. ABDOMEN: Soft, nontender. EXTREMITITES: 1+ edema. Objective - Vital Signs Vital signs: Vital Signs Temp 97.7 F 08/27/20 03:40 Pulse 88 08/27/20 03:40 Resp 18 08/27/20 03:40 BP 128/62 08/27/20 03:40 Pulse Ox 100 08/27/20 03:40 Intake & Output 08/26/20 08/27/20 08/27/20 18:59 06:59 18:59 Intake Total 236 486 Output Total 1000 450 900 Balance -764 -450 -414 Weight 128 kg Intake: Oral 236 486 Output: Urine 1000 450 900 Other: Voiding Method Toilet - Labs CBC & Chem 7: 08/27/20 05:42 08/27/20 05:42 Labs: Abnormal Lab Results - Last 24 Hours (Table) 08/26/20 08/26/20 08/26/20 Range/Units 12:14 17:15 17:27 WBC (3.8-10.6) k/uL MCHC (31.0-37.0) g/dL RDW (11.5-15.5) % Lymphocytes # (1.0-4.8) k/uL ABG pH 7.28 L (7.35-7.45) ABG pCO2 73 H* (35-45) mmHg ABG HCO3 34 H (21-25) mmol/L ABG Total CO2 37 H (19-24) mmol/L ABG O2 Saturation 97.5 H (94-97) % Potassium (3.5-5.1) mmol/L Chloride (98-107) mmol/L Carbon Dioxide (22-30) mmol/L BUN (7-17) mg/dL Creatinine (0.52-1.04) mg/dL Glucose (74-99) mg/dL POC Glucose (mg/dL) 40 L 40 L (75-99) mg/dL Alkaline Phosphatase (38-126) U/L Total Protein (6.3-8.2) g/dL Albumin (3.5-5.0) g/dL 08/26/20 08/27/20 08/27/20 Range/Units 17:31 05:42 05:42 WBC 2.8 L (3.8-10.6) k/uL MCHC 29.5 L (31.0-37.0) g/dL RDW 16.8 H (11.5-15.5) % Lymphocytes # 0.6 L (1.0-4.8) k/uL ABG pH (7.35-7.45) ABG pCO2 (35-45) mmHg ABG HCO3 (21-25) mmol/L ABG Total CO2 (19-24) mmol/L ABG O2 Saturation (94-97) % Potassium 5.2 H (3.5-5.1) mmol/L Chloride 109 H (98-107) mmol/L Carbon Dioxide 34 H (22-30) mmol/L BUN 53 H (7-17) mg/dL Creatinine 2.14 H (0.52-1.04) mg/dL Glucose 53 L (74-99) mg/dL POC Glucose (mg/dL) 59 L (75-99) mg/dL Alkaline Phosphatase 35 L (38-126) U/L Total Protein 5.2 L (6.3-8.2) g/dL Albumin 2.7 L (3.5-5.0) g/dL 08/27/20 08/27/20 08/27/20 Range/Units 06:04 06:19 12:26 WBC (3.8-10.6) k/uL MCHC (31.0-37.0) g/dL RDW (11.5-15.5) % Lymphocytes # (1.0-4.8) k/uL ABG pH (7.35-7.45) ABG pCO2 (35-45) mmHg ABG HCO3 (21-25) mmol/L ABG Total CO2 (19-24) mmol/L ABG O2 Saturation (94-97) % Potassium (3.5-5.1) mmol/L Chloride (98-107) mmol/L Carbon Dioxide (22-30) mmol/L BUN (7-17) mg/dL Creatinine (0.52-1.04) mg/dL Glucose (74-99) mg/dL POC Glucose (mg/dL) 51 L 54 L 70 L (75-99) mg/dL Alkaline Phosphatase (38-126) U/L Total Protein (6.3-8.2) g/dL Albumin (3.5-5.0) g/dL Assessment and Plan Plan: Assessment: 1. Acute kidney injury mostly prerenal secondary to cardiorenal syndrome. Renal function better today. Creatinine 2.14. 2. Acute on chronic diastolic CHF. 3. Volume overload. 4. Chronic kidney disease stage IIIa with baseline creatinine in the range of 1-1.4 in 2018. Etiology is diabetic kidney disease. 5. Diabetes mellitus. 6. Hypertension with chronic kidney disease. Controlled. Plan: Maintain Lasix 40 mg IV daily. 1500 mL fluid restriction and low-salt diet. Avoid nephrotoxins. Continue to monitor renal function and urine output. Decrease losartan to 50 mg once daily as blood pressure is well controlled and potassium slightly on the higher side. Patient was advised to follow-up patient in 1-2 weeks upon discharge.
[2020-08-27 12:45] LABS: Glucose,Whole Blood 161 mg/dL (75-99)
--- NOTE | 2020-08-27 13:41 | P.PN ---
Subjective Progress Note Date: 08/27/20 HISTORY OF PRESENT ILLNESS: This is a pleasant 60-year-old -[place] female past medical history significant for hypertension, dyslipidemia, diabetes mellitus, COPD, chronic nicotine dependence, chronic kidney disease and obesity. She denies prior history of coronary artery disease and does not follow regularly with a corrugator helper. In [address] Khan in the office secondary to abnormal stress test and underwent a cardiac catheterization revealing normal coronary arteries with no obstructive disease. We have been asked to see in consultation for heart failure. Due to to the hospital with a three-week history of shortness of breath. She was treated at [facility] on August 09 with steroids and updrafts and thought to have an exacerbation of COPD. However the patient states she has not had stable or comfortable breathing since that time. Her breathing at times is worse with exertion. She has also noticed orthopnea and paroxysmal woken up at night short of breath. She is also concerned about lower extremity edema, worse on the right. She denies symptoms of chest pain, dizziness or palpitations. There is no old echocardiogram for review. DIAGNOSTICS EKG reveals sinus mechanism heart rate of 97 with nonspecific changes in the precordial leads. VQ scan is low probability for PE. Chest xray pleural effusions and left lower lobe pneumonia, possible small right-sided pneumothorax. Laboratory reviewed, troponin 0.062, 0.055, 0.055, WBC 4.5, hemoglobin 11.9, platelets 276, d-dimer 7.02, sodium 143, potassium 5.1, creatinine 1.93, ProBNP 9410. Current cardiac medications include lisinopril 40 mg daily although the patient does not believe she is taking this medication any more, hydralazine 50 mg twice a day, clonidine 0.1 mg 3 times a day, verapamil 240 mg daily, losartan 100 mg daily and fenofibrate. 08/25: Patient states that her breathing is better today. She is on Lasix 40 mg IV twice daily. She does continue to have some lower extremity edema. We'll plan to repeat chest x-ray in the morning. She has been afebrile, heart rate 89, blood pressure 129/88, pulse ox 99% on 3 L nasal cannula. Echocardiogram reveals EF of 55-60% with severe concentric left hypertrophy, trace mitral regurgitation, trace tricuspid regurgitation. BUN 44 and creatinine 2.15, potassium 5.0. 3/14: Patient to increase in her renal function with BUN of 51 creatinine 2.4 and nephrology consult added. Patient was decreased yesterday to Lasix 40 mg IV daily. Heart rate has been 88, blood pressure 119/65. Pulse ox 92% on 2 L. Chest x-ray reveals consistent with moderate heart failure with mild interval improvement. Patient is having a neurological workup for tremors rule out seizures. 08/27/2020 Patient examined this morning at the bedside. She denies chest pain or pressure. Reports mild shortness of breath. Creatinine 2.14 today, down from 2.40 yesterday. Potassium 5.2. She remains on Lasix 40 mg IV daily. PHYSICAL EXAM: VITAL SIGNS: Reviewed. GENERAL: Well-developed in no acute distress. NECK: Supple. No JVD or thyromegaly LUNGS: Respirations even and unlabored. Lungs diminished bilaterally. HEART: Regular rate and rhythm. S1 and S2 heard. EXTREMITIES: Normal range of motion. No clubbing or cyanosis. Peripheral pulses intact. Trace bilateral lower extremity edema ASSESSMENT: Acute diastolic heart failure, ejection fraction 55-60% Troponin elevation secondary to renal function Acute kidney injury, chronic kidney disease stage III Hypertension Dyslipidemia Diabetes mellitus COPD Chronic nicotine dependence Obesity, BMI 39 PLAN: Continue to monitor blood pressure Continue telemetry monitoring Continue current cardiac medications Nephrology following Continue IV Lasix dosing per nephrology Monitor kidney function Daily weights Accurate I&O We will sign off. Please reconsult if needed. Nurse practitioner note has been reviewed by physician. Signing provider agrees with the documented findings, assessment, and plan of care. Objective - Vital Signs Vital signs: Vital Signs Temp 97.7 F 08/27/20 03:40 Pulse 88 08/27/20 03:40 Resp 18 08/27/20 03:40 BP 128/62 08/27/20 03:40 Pulse Ox 100 08/27/20 03:40 Intake & Output 08/26/20 08/27/20 08/27/20 18:59 06:59 18:59 Intake Total 236 486 Output Total 1000 450 900 Balance -764 -450 -414 Weight 128 kg Intake: Oral 236 486 Output: Urine 1000 450 900 Other: Voiding Method Toilet - Labs CBC & Chem 7: 08/27/20 05:42 08/27/20 05:42 Labs: Abnormal Lab Results - Last 24 Hours (Table) 08/26/20 08/26/20 08/26/20 Range/Units 12:14 17:15 17:27 WBC (3.8-10.6) k/uL MCHC (31.0-37.0) g/dL RDW (11.5-15.5) % Lymphocytes # (1.0-4.8) k/uL ABG pH 7.28 L (7.35-7.45) ABG pCO2 73 H* (35-45) mmHg ABG HCO3 34 H (21-25) mmol/L ABG Total CO2 37 H (19-24) mmol/L ABG O2 Saturation 97.5 H (94-97) % Potassium (3.5-5.1) mmol/L Chloride (98-107) mmol/L Carbon Dioxide (22-30) mmol/L BUN (7-17) mg/dL Creatinine (0.52-1.04) mg/dL Glucose (74-99) mg/dL POC Glucose (mg/dL) 40 L 40 L (75-99) mg/dL Alkaline Phosphatase (38-126) U/L Total Protein (6.3-8.2) g/dL Albumin (3.5-5.0) g/dL 08/26/20 08/27/20 08/27/20 Range/Units 17:31 05:42 05:42 WBC 2.8 L (3.8-10.6) k/uL MCHC 29.5 L (31.0-37.0) g/dL RDW 16.8 H (11.5-15.5) % Lymphocytes # 0.6 L (1.0-4.8) k/uL ABG pH (7.35-7.45) ABG pCO2 (35-45) mmHg ABG HCO3 (21-25) mmol/L ABG Total CO2 (19-24) mmol/L ABG O2 Saturation (94-97) % Potassium 5.2 H (3.5-5.1) mmol/L Chloride 109 H (98-107) mmol/L Carbon Dioxide 34 H (22-30) mmol/L BUN 53 H (7-17) mg/dL Creatinine 2.14 H (0.52-1.04) mg/dL Glucose 53 L (74-99) mg/dL POC Glucose (mg/dL) 59 L (75-99) mg/dL Alkaline Phosphatase 35 L (38-126) U/L Total Protein 5.2 L (6.3-8.2) g/dL Albumin 2.7 L (3.5-5.0) g/dL 08/27/20 08/27/20 08/27/20 Range/Units 06:04 06:19 12:26 WBC (3.8-10.6) k/uL MCHC (31.0-37.0) g/dL RDW (11.5-15.5) % Lymphocytes # (1.0-4.8) k/uL ABG pH (7.35-7.45) ABG pCO2 (35-45) mmHg ABG HCO3 (21-25) mmol/L ABG Total CO2 (19-24) mmol/L ABG O2 Saturation (94-97) % Potassium (3.5-5.1) mmol/L Chloride (98-107) mmol/L Carbon Dioxide (22-30) mmol/L BUN (7-17) mg/dL Creatinine (0.52-1.04) mg/dL Glucose (74-99) mg/dL POC Glucose (mg/dL) 51 L 54 L 70 L (75-99) mg/dL Alkaline Phosphatase (38-126) U/L Total Protein (6.3-8.2) g/dL Albumin (3.5-5.0) g/dL 08/27/20 Range/Units 12:44 WBC (3.8-10.6) k/uL MCHC (31.0-37.0) g/dL RDW (11.5-15.5) % Lymphocytes # (1.0-4.8) k/uL ABG pH (7.35-7.45) ABG pCO2 (35-45) mmHg ABG HCO3 (21-25) mmol/L ABG Total CO2 (19-24) mmol/L ABG O2 Saturation (94-97) % Potassium (3.5-5.1) mmol/L Chloride (98-107) mmol/L Carbon Dioxide (22-30) mmol/L BUN (7-17) mg/dL Creatinine (0.52-1.04) mg/dL Glucose (74-99) mg/dL POC Glucose (mg/dL) 161 H (75-99) mg/dL Alkaline Phosphatase (38-126) U/L Total Protein (6.3-8.2) g/dL Albumin (3.5-5.0) g/dL
--- NOTE | 2020-08-27 14:19 | US ---
EXAMINATION TYPE: US chest DATE OF EXAM: 08/27/2020 COMPARISON: CXR CLINICAL HISTORY: Markings for thoracentesis by pulmonary staff. Pleural effusions TECHNIQUE: Targeted ultrasound of the posterior lower bilateral hemithoraces EXAM MEASUREMENTS: Left Pleural Effusion pocket size: 7.6 cm Left skin surface to fluid distance: 4.3 cm Right side NOT marked for possible thoracentesis outside the dept, lung persistent in image Left side marked for possible thoracentesis outside the dept. Pulmonologists are able to review the images in the patient?s EMR. IMPRESSIONS: Left pleural effusion
--- NOTE | 2020-08-27 15:08 | P.CNPUL ---
History of Present Illness Consult date: 08/27/20 Requesting physician: Eliana Delgadillo Reason for consult: dyspnea, hypoxemia, pleural effusion, abnormal CXR/CT Chief complaint: Shortness of breath, pleural effusion. History of present illness: 60-year-old female who presented to the emergency department on 08/23/2020, at 2232. Her major complaint when presenting to the emergency department was that of shortness of breath. The patient apparently also complained of swelling in her lower extremities, right greater than left. She was apparently recently at [facility] from [place] to fibroid , for similar episode. She apparently was discharged after being told she had asthma and COPD, with albuterol, Singulair, antibiotics, and steroids. She was also suspected to have mastitis on the left. She apparently was given IV fluids and steroids at [facility], which apparently caused her to have pain and swelling to her legs. I was asked to see her after she's been here in the hospital for a couple of days, because of the potential left-sided pleural effusion. The patient's on a couple of liters of O2 and states that her breathing is much improved. Her chest x-ray shows what appears to be relatively smaller left- sided pleural effusion. A Doppler of the posterior left chest will be ordered. She denies any fever or chills. She denies any cough or phlegm production. She states that her breathing is much improved. She apparently carries with her diagnosis of COPD from previous tobacco use, diabetes mellitus, gastroesophageal reflux disease, hyperlipidemia, essential hypertension, and arthritis. Review of Systems REVIEW OF SYSTEMS: CONSTITUTIONAL: [Negative.] NEUROLOGIC: [ Negative.] HEENT: [ Negative.] CARDIAC: Lower extremity edema. PULMONARY: Shortness of breath. GI: [Negative.] : [Negative.] RHEUMATOLOGIC: [ Negative.] IMMUNOLOGIC: [ Negative.] ENDOCRINE: [Negative. ] DERMATOLOGIC: [Negative.] Past Medical History Past Medical History: COPD, Diabetes Mellitus, GERD/Reflux, Hyperlipidemia, Hype rtension, Osteoarthritis (OA) Additional Past Medical History / Comment(s): spondolysis History of Any Multi-Drug Resistant Organisms: None Reported Past Surgical History: Back Surgery, Hysterectomy, Orthopedic Surgery Additional Past Surgical History / Comment(s): RT shoulder surgery, LT arthroscopy knee. COLONOSCOPY. BACK SX X 2 Past Anesthesia/Blood Transfusion Reactions: No Reported Reaction Past Psychological History: No Psychological Hx Reported Smoking Status: Current some day smoker Past Alcohol Use History: Rare Additional Past Alcohol Use History / Comment(s): pt. smokes 2 cigs/week, has smoked since age of 12 Past Drug Use History: None Reported - Past Family History Mother Family Medical History: Diabetes Mellitus Medications and Allergies Home Medications Medication Instructions Recorded Confirmed Type HYDROcodone/APAP 10-325MG [[place] 1 tab PO Q6HR PRN 05/21/15 08/24/20 History 10-325] lisinopriL 40 mg PO DAILY 05/05/17 08/24/20 History Cephalexin [Keflex] 500 mg PO Q6HR #40 cap 08/20/20 08/24/20 Rx Albuterol Sulfate [Proair Hfa] 1 - 2 puff INHALATION RT-Q6H PRN 08/24/20 08/24/20 History Baclofen 10 mg PO BID 08/24/20 08/24/20 History Ergocalciferol [Vitamin D2 (1250 1,250 mcg PO Q7D 08/24/20 08/24/20 History Mcg = 83350 Iu)] Fenofibrate 160 mg PO DAILY 08/24/20 08/24/20 History INSULIN LISPRO (humaLOG) [humaLOG] See Protocol SQ AC-TID 08/24/20 08/24/20 History Insulin Glargine [Lantus] See Protocol SQ HS 08/24/20 08/24/20 History Loratadine [Claritin] 10 mg PO DAILY 08/24/20 08/24/20 History Losartan Potassium 100 mg PO DAILY 08/24/20 08/24/20 History Montelukast [Singulair] 10 mg PO HS 08/24/20 08/24/20 History Nortriptyline [Pamelor] 25 mg PO DAILY 08/24/20 08/24/20 History Pioglitazone [Actos] 30 mg PO DAILY 08/24/20 08/24/20 History Polyethylene Glycol 3350 [Miralax] 17 gm PO DAILY PRN 08/24/20 08/24/20 History Sennosides-Docusate Sodium 1 tab PO BID 08/24/20 08/24/20 History [Senokot-S] Triamcinolone 0.025% Cream 1 applic TOPICAL DAILY PRN 08/24/20 08/24/20 History [Kenalog 0.025% Cream] Verapamil HCl [Verapamil ER] 240 mg PO DAILY 08/24/20 08/24/20 History cloNIDine HCL [Catapres] 0.1 mg PO TID 08/24/20 08/24/20 History hydrALAZINE HCL 50 mg PO Q12H 08/24/20 08/24/20 History Allergies Allergy/AdvReac Type Severity Reaction Status Date / Time amoxicillin [Amoxicillin] Allergy Rash/Hives Verified 08/24/20 07:03 latanoprost AdvReac blurry Verified 08/24/20 07:03 vision prednisolone AdvReac Swelling Verified 08/24/20 07:03 steroids AdvReac affected Uncoded 08/20/20 16:13 eyes Physical Exam Osteopathic Statement: *. No significant issues noted on an osteopathic structural exam other than those noted in the History and Physical/Consult. Vitals: Vital Signs Temp Pulse Resp BP Pulse Ox 08/27/20 03:40 97.7 F 88 18 128/62 100 08/26/20 23:50 98.1 F 91 14 136/62 100 08/26/20 20:05 98.3 F 90 15 126/66 99 08/26/20 16:00 98.1 F 96 20 139/67 96 Intake and Output 08/26/20 08/27/20 08/27/20 22:59 06:59 14:59 Intake Total 236 486 Output Total 1000 450 900 Balance -764 -450 -414 Intake: Oral 236 486 Output: Urine 1000 450 900 Other: Voiding Method Toilet Toilet Weight 128 kg No acute distress, oriented 3. Nasal O2 2 L noted. No conversational dyspnea, audible wheezing, or use of accessory muscles. HEENT examination is grossly unremarkable. Mucous membranes are moist. No oral lesions. Neck supple. Full range of motion. No adenopathy thyromegaly or neck vein distention. Cardiovascular examination reveals regular rhythm rate. S1-S2 normal. No S3 or S4. No discernible murmur noted. Heart rate is 88 bpm. Lungs reveal mostly clear breath sounds. A few crackles at the bases are noted, left greater than right. No rhonchi or wheezes. Abdomen obese but soft. Bowel sounds are noted. Extremities are intact. No cyanosis or clubbing. Bilateral lower extremity edema noted, right greater than left. Skin is without rash or lesion. Neurologic examination is brief but nonfocal. Results - Laboratory Findings CBC and BMP: 08/27/20 05:42 08/27/20 05:42 ABG ABG pH 7.28 (7.35-7.45) L 08/26/20 12:14 ABG pCO2 73 mmHg (35-45) H* 08/26/20 12:14 ABG pO2 90 mmHg (83-108) 08/26/20 12:14 ABG O2 Saturation 97.5 % (94-97) H 08/26/20 12:14 PT/INR, D-dimer PT 11.4 sec (9.0-12.0) 08/23/20 23:14 INR 1.1 (<1.2) 08/23/20 23:14 D-Dimer 7.02 mg/L FEU (<0.60) H 08/23/20 23:14 Abnormal lab findings: Abnormal Labs 08/23/20 08/23/20 08/23/20 23:14 23:14 23:14 WBC MCHC 29.6 L RDW 17.2 H Lymphocytes # 0.2 L D-Dimer 7.02 H ABG pH ABG pCO2 ABG pO2 ABG HCO3 ABG Total CO2 ABG O2 Saturation Potassium Chloride 108 H Carbon Dioxide BUN 32 H Creatinine 1.93 H Glucose 157 H POC Glucose (mg/dL) Hemoglobin A1c Plasma Lactic Acid Loco Magnesium Alkaline Phosphatase Troponin I Total Protein 5.8 L Albumin 3.2 L Procalcitonin 08/23/20 08/23/20 08/24/20 23:14 23:14 03:20 WBC MCHC RDW Lymphocytes # D-Dimer ABG pH ABG pCO2 ABG pO2 ABG HCO3 ABG Total CO2 ABG O2 Saturation Potassium Chloride Carbon Dioxide BUN Creatinine Glucose POC Glucose (mg/dL) Hemoglobin A1c Plasma Lactic Acid Loco 0.6 L Magnesium Alkaline Phosphatase Troponin I 0.062 H* 0.055 H* Total Protein Albumin Procalcitonin 08/24/20 08/24/20 08/24/20 05:30 06:08 09:52 WBC MCHC RDW Lymphocytes # D-Dimer ABG pH ABG pCO2 ABG pO2 ABG HCO3 ABG Total CO2 ABG O2 Saturation Potassium Chloride Carbon Dioxide BUN Creatinine Glucose POC Glucose (mg/dL) 189 H Hemoglobin A1c Plasma Lactic Acid Loco Magnesium Alkaline Phosphatase Troponin I 0.055 H* Total Protein Albumin Procalcitonin 0.23 H 08/24/20 08/24/20 08/25/20 11:57 19:39 07:32 WBC MCHC RDW Lymphocytes # D-Dimer ABG pH ABG pCO2 ABG pO2 ABG HCO3 ABG Total CO2 ABG O2 Saturation Potassium Chloride Carbon Dioxide BUN Creatinine Glucose POC Glucose (mg/dL) 119 H 141 H Hemoglobin A1c 7.0 H Plasma Lactic Acid Loco Magnesium Alkaline Phosphatase Troponin I Total Protein Albumin Procalcitonin 08/25/20 08/25/20 08/25/20 07:32 12:26 18:12 WBC MCHC RDW Lymphocytes # D-Dimer ABG pH 7.30 L ABG pCO2 70 H ABG pO2 52 L* ABG HCO3 35 H ABG Total CO2 37 H ABG O2 Saturation 84.4 L Potassium Chloride Carbon Dioxide 35 H BUN 44 H Creatinine 2.15 H Glucose POC Glucose (mg/dL) 110 H Hemoglobin A1c Plasma Lactic Acid Loco Magnesium Alkaline Phosphatase Troponin I Total Protein Albumin Procalcitonin 08/25/20 08/25/20 08/26/20 18:17 20:23 05:55 WBC MCHC RDW Lymphocytes # D-Dimer ABG pH ABG pCO2 ABG pO2 ABG HCO3 ABG Total CO2 ABG O2 Saturation Potassium Chloride Carbon Dioxide 32 H BUN 50 H Creatinine 2.37 H Glucose 54 L POC Glucose (mg/dL) 74 L 49 L Hemoglobin A1c Plasma Lactic Acid Loco Magnesium 2.4 H Alkaline Phosphatase Troponin I Total Protein 6.0 L Albumin 3.4 L Procalcitonin 08/26/20 08/26/20 08/26/20 06:13 07:01 12:07 WBC MCHC RDW Lymphocytes # D-Dimer ABG pH ABG pCO2 ABG pO2 ABG HCO3 ABG Total CO2 ABG O2 Saturation Potassium Chloride Carbon Dioxide 33 H BUN 51 H Creatinine 2.40 H Glucose POC Glucose (mg/dL) 117 H 105 H Hemoglobin A1c Plasma Lactic Acid Loco Magnesium Alkaline Phosphatase Troponin I Total Protein 5.6 L Albumin 2.9 L Procalcitonin 08/26/20 08/26/20 08/26/20 12:10 12:14 17:15 WBC MCHC RDW Lymphocytes # D-Dimer ABG pH 7.28 L 7.28 L ABG pCO2 73 H* 73 H* ABG pO2 ABG HCO3 34 H 34 H ABG Total CO2 36 H 37 H ABG O2 Saturation 97.5 H Potassium Chloride Carbon Dioxide BUN Creatinine Glucose POC Glucose (mg/dL) 40 L Hemoglobin A1c Plasma Lactic Acid Loco Magnesium Alkaline Phosphatase Troponin I Total Protein Albumin Procalcitonin 08/26/20 08/26/20 08/27/20 17:27 17:31 05:42 WBC 2.8 L MCHC 29.5 L RDW 16.8 H Lymphocytes # 0.6 L D-Dimer ABG pH ABG pCO2 ABG pO2 ABG HCO3 ABG Total CO2 ABG O2 Saturation Potassium Chloride Carbon Dioxide BUN Creatinine Glucose POC Glucose (mg/dL) 40 L 59 L Hemoglobin A1c Plasma Lactic Acid Loco Magnesium Alkaline Phosphatase Troponin I Total Protein Albumin Procalcitonin 08/27/20 08/27/20 08/27/20 05:42 06:04 06:19 WBC MCHC RDW Lymphocytes # D-Dimer ABG pH ABG pCO2 ABG pO2 ABG HCO3 ABG Total CO2 ABG O2 Saturation Potassium 5.2 H Chloride 109 H Carbon Dioxide 34 H BUN 53 H Creatinine 2.14 H Glucose 53 L POC Glucose (mg/dL) 51 L 54 L Hemoglobin A1c Plasma Lactic Acid Loco Magnesium Alkaline Phosphatase 35 L Troponin I Total Protein 5.2 L Albumin 2.7 L Procalcitonin 08/27/20 08/27/20 12:26 12:44 WBC MCHC RDW Lymphocytes # D-Dimer ABG pH ABG pCO2 ABG pO2 ABG HCO3 ABG Total CO2 ABG O2 Saturation Potassium Chloride Carbon Dioxide BUN Creatinine Glucose POC Glucose (mg/dL) 70 L 161 H Hemoglobin A1c Plasma Lactic Acid Loco Magnesium Alkaline Phosphatase Troponin I Total Protein Albumin Procalcitonin - Diagnostic Findings Chest x-ray: image reviewed U/S of Legs: image reviewed Assessment and Plan Assessment: Shortness of breath, much improved, likely secondary to acute diastolic CHF and left-sided pleural effusion. COPD does not appear to be particularly active at this time. Small to moderate left-sided effusion, measuring 7.6 cm. Apparent history of COPD, from previous tobacco use. Chronic hypoxemic and hypercapnic respiratory failure. Obesity. History of diabetes mellitus. History of hyperlipidemia. History of hypertension. History of gastroesophageal reflux disease. Chronic kidney disease. Rule out Pickwickian syndrome, and obstructive sleep apnea syndrome. Plan: Plan dated 08/27/2020. The left-sided pleural effusion is small to moderate in size. They're likely just watch it at this time. Technically, she may be a difficult thoracentesis given her body habitus. Clinically she is doing better. She feels much less short of breath. She will need extensive outpatient pulmonary evaluation incl uding a pulmonary function test, and also a 6 minute walk distance. Additional recommendations and suggestions are forthcoming. White count is 2.8, hemoglobin 11.8, hematocrit 39.9, and platelet count is 264,000. Arterial blood gases on 40% oxygen from yesterday show a PaO2 of 98, PaCO2 of 73, and a pH is 7.28. Sodium 143, potassium 5.2, chlorides 19, CO2 34, anion gap 0, BUN 53, and creatinine 2.14. The N- terminal pro BNP on admission was 9410. Time with Patient: Greater than 30
--- NOTE | 2020-08-27 15:29 | P.PN ---
Subjective Progress Note Date: 08/27/20 This is a 60-year-old female patient at [facility] with past medical history significant for COPD, diabetes mellitus type 2, gastroesophageal reflux disease, hypertension, hyperlipidemia, generalized osteoarthritis, remote history of tobacco use and dependence. She gives history that she was recently hospitalized at [facility] with edema more so to the right lower extremity. She was placed on steroids which she thinks made her swelling worse. She was admitted for shortness of breath and continued shortness Soreness of breath at the time of discharge. She states she is short of breath with ambulation. No chest pain. She also was treated for left breast mastitis and placed on antibiotics. Patient states that she has had continued shortness of breath, no fever or chills. She continues to have erythema and edema to the left breast as well. She came into [facility] emergency center for evaluation. EKG was sinus rhythm with heart rate of 97 with nonspecific changes in the precordial leads. VQ scan is low probability for PE. Chest xray pleural effusions and left lower lobe pneumonia, possible small right-sided pneumothorax. Troponin 0.062, 0.055, 0.055, WBC 4.5, hemoglobin 11.9, platelets 276, d-dimer 7.02, sodium 143, potassium 5.1, creatinine 1.93, ProBNP 9410. patient admitted to the cardiac stepdown unit and consult in place with cardiology 08/25 and patient examined bedside. Continues to feel better. Improved shortness of breath and lower extremity swelling. Lasix reduced to 40 mg IV daily. Continue Keflex for cellulitis . Vitals are stable patient's blood pressure is running on the lower side. Last blood pressure reported to be 96/64 BP suggest a creatinine 2.15 BUN 44 A1c 7. Echo obtained on 08/24 suggest surveillance Ed Aury left ventricular hypertropia with normal ejection fraction 55-60% and trace mitral regurgitation and tricuspid regurgitation seen. 08/26 patient examined bedside. A team was called on the patient earlier today due to concern for jerking movements involving the upper extremity. Patient was also found to be unresponsive ABG was obtained pH of 7.28 pCO2 of 73 pO2 of 90 bicarb 37. Patient was placed on BiPAP with improvement in mental status. Jerking movements were noted in the upper extremities. Multiple medications including baclofen, gabapentin and glipizide was discontinued. Patient did have episodes of hypoglycemia this morning and that was corrected. On assessment today mild jerking movement of the upper extremity on the left was noted. EEG ordered. CAT scan of the head was obtained and was negative for any acute process. Neurology was consulted. Detailed discussion on patient's prognosis was done with the daughter bedside. Patient's daughter was concerned of her mother's health and wanted her transferred to outside facility or leaving AMA. On explanation of patient's condition and her intolerability to nasal cannula, patient daughter agreed on keeping the patient in the hospital and not going against medical advise. Nephrology was consulted, urine protein creatinine ratio obtained as there is a concern for diabetic nephropathy contributing to patient's lower extremity edema. Amlodipine was discontinued to improve patient's lower extremity swelling. Patient to stay on BiPAP today on and off. Repeat ABG to be obtained after 3 hours on BiPAP today. If patient does not improve on the above measures, Patient will be transferred to ICU. Patient's condition is guarded and family updated on the plan 08/27: Patient has been seen by pulmonary medicine. Ultrasound revealed left- sided pleural effusion 7.6 cm to small and will monitor. Patient states that she is feeling good today. She states her breathing is significantly improved. She has been using BiPAP when sleeping. She has a Hyatt in place. She has been diuresing well. Patient is been afebrile, heart rate 88, blood pressure 120/62. Blood sugar at 6 AM was 54. Repeat blood work reveals WBC 2.8, hemoglobin 11.8. Potassium 5.2, chloride 109, CO2 34, BUN 53 and creatinine 2.14. EEG is pending. Patient was started on Keppra by neurology. PT and OT added REVIEW OF SYSTEMS Constitutional: No fever, no chills, no night sweats. No weight change. No weakness, fatigue or lethargy. No daytime sleepiness. EENT: No headache. No blurred vision or double vision, no loss of vision. No loss of Hearing, no ringing in the ears, no dizziness. No nasal drainage or congestion. No epistaxis. No sore throat. Lungs: Reports shortness of breath, cough, no sputum production. No wheezing. Reports shortness of breath with exertion. Cardiovascular: No chest pain, reports lower extremity edema. No palpitations. No paroxysmal nocturnal dyspnea. No orthopnea. No lightheadedness or dizziness. No syncopal episodes. positive for dyspnea Abdominal: No abdominal pain. No nausea, vomiting. No diarrhea. No constipation. No bloody or tarry stools.. No loss of appetite. Genitourinary: No dysuria, increased frequency, urgency. No urinary retention. Musculoskeletal: No myalgias. No muscle weakness, no gait dysfunction, no maggi quent falls. No back pain. No neck pain. Integumentary: No wounds, no lesions. No rash or pruritus. No unusual bruising. No change in hair or nails. Neurologic: No aphasia. No facial droop. No change in mentation. No head injury. No headache. No paralysis. No paresthesia. positive for jerking movement involving the left upper extremity Psychiatric: No depression. No anxiety. Endocrine: No abnormal blood sugars. No weight change. PHYSICAL EXAMINATION Gen: This priscila 60-year-old -[place] female. She is resting in bed appears to be comfortable. No acute respiratory distress is noted at rest. HEENT: Head is atraumatic, normocephalic. Pupils equal, round. Sclerae is anicteric. NECK: Supple. No JVD. No lymphadenopathy. No thyromegaly. LUNGS: reveals diminished bilaterally, few expiratory wheeze. Accessory muscle usage No intercostal retractions. Breast exam does suggest swelling and redness involving the left breast no lymphadenopathy HEART: Regular rate and rhythm. No murmur. ABDOMEN: Soft. Bowel sounds are present. No masses. No tenderness. EXTREMITIES: right lower extremity with 1+ pedal edema. left lower externa with trace pedal edema. Dorsalis pedis +2 bilaterally. No calf tenderness. NEUROLOGICAL: Patient is awake, alert and oriented x3. ASSESSMENT AND PLAN 1. Acute diastolic heart failure. Cardiology consult appreciated. Echocardiogram as above, Lasix 40 mg IV daily, monitor I&O and daily weights. 2. Troponin elevation secondary to renal function. 3. Acute kidney injury secondary to combination of diabetic nephropathy and cardiorenal syndrome. Avoid nephrotoxic agents. Okay to continue Lasix and losartan for now. Nephrology consulted Repeat labs in the morning 4. Chronic kidney disease stage III. Likely secondary to diabetic nephropathy urine protein and creatinine ratio obtained. 5. Left-sided mastitis. Continue Keflex. Ultrasound breast on 08/20 suggestive of cellulitis patient need mammogram after acute inflammation is resolved 6. Hypertension. Norvasc discontinued lower extremity edema, losartan 50 mg daily, Lopressor 100 mg once daily, clonidine 0.1 mg 3 times daily, hydralazine 50 mg every 12 hours,. Home medication list states lisinopril 40 and losartan. Patient verbalizes that lisinopril was discontinued. Discussed Lopressor and verapamil with cardiology and preference is to continue Lopressor and hold verapamil. 7. Hyperlipidemia. Continue atorvastatin 40 mg at bedtime 8. Diabetes mellitus type 2. Continue Levemir, dose will be clarified with the patient. NovoLog scale before meals and at bedtime. Hold Actos 30 mg daily. Glipizide discontinued 8. COPD. continue albuterol inhaler 2 puffs every 6 hours as needed. 10. Tobacco use and dependence. Smoking cessation. 11. Gastroesophageal reflux disease. 12. Diabetic neuropathy. Gabapentin discontinuing need to reduce her dose on discharge #13. Intermittent jerking movement on the left. Rule out seizures. EEG ordered. Patient's jerkiness is likely related to acute uremia and metabolic encephalopathy. Hold baclofen hold glipizide hold gabapentin Stat dose of Keppra was given by Dr. Charles. #14 acute hypoxic hypercapnic respiratory failure secondary to acute diastolic congestive heart failure. Continue Lasix at 40 IV daily. Continue BiPAP intermittently. Chest x-ray with moderate pleural effusion. Pulmonary consulted for possible thoracentesis #15 acute metabolic encephalopathy likely secondary to medications, acute uremia, CO2 retention and underlying obstructive sleep apnea. Remove contributing medication. Hold gabapentin, hold baclofen. Nephrology consulted. Objective - Vital Signs Vital signs: Vital Signs Temp 97.7 F 08/27/20 03:40 Pulse 88 08/27/20 03:40 Resp 18 08/27/20 03:40 BP 128/62 08/27/20 03:40 Pulse Ox 100 08/27/20 03:40 Intake & Output 08/26/20 08/27/20 08/27/20 18:59 06:59 18:59 Intake Total 236 Output Total 1000 450 Balance -764 -450 Weight 128 kg Intake: Oral 236 Output: Urine 1000 450 Other: Voiding Method Toilet - Labs CBC & Chem 7: 08/27/20 05:42 08/27/20 05:42 Labs: Abnormal Lab Results - Last 24 Hours (Table) 08/26/20 08/26/20 08/26/20 Range/Units 12:07 12:10 12:14 WBC (3.8-10.6) k/uL MCHC (31.0-37.0) g/dL RDW (11.5-15.5) % Lymphocytes # (1.0-4.8) k/uL ABG pH 7.28 L 7.28 L (7.35-7.45) ABG pCO2 73 H* 73 H* (35-45) mmHg ABG HCO3 34 H 34 H (21-25) mmol/L ABG Total CO2 36 H 37 H (19-24) mmol/L ABG O2 Saturation 97.5 H (94-97) % Potassium (3.5-5.1) mmol/L Chloride (98-107) mmol/L Carbon Dioxide (22-30) mmol/L BUN (7-17) mg/dL Creatinine (0.52-1.04) mg/dL Glucose (74-99) mg/dL POC Glucose (mg/dL) 105 H (75-99) mg/dL Alkaline Phosphatase (38-126) U/L Total Protein (6.3-8.2) g/dL Albumin (3.5-5.0) g/dL 08/26/20 08/26/20 08/26/20 Range/Units 17:15 17:27 17:31 WBC (3.8-10.6) k/uL MCHC (31.0-37.0) g/dL RDW (11.5-15.5) % Lymphocytes # (1.0-4.8) k/uL ABG pH (7.35-7.45) ABG pCO2 (35-45) mmHg ABG HCO3 (21-25) mmol/L ABG Total CO2 (19-24) mmol/L ABG O2 Saturation (94-97) % Potassium (3.5-5.1) mmol/L Chloride (98-107) mmol/L Carbon Dioxide (22-30) mmol/L BUN (7-17) mg/dL Creatinine (0.52-1.04) mg/dL Glucose (74-99) mg/dL POC Glucose (mg/dL) 40 L 40 L 59 L (75-99) mg/dL Alkaline Phosphatase (38-126) U/L Total Protein (6.3-8.2) g/dL Albumin (3.5-5.0) g/dL 08/27/20 08/27/20 08/27/20 Range/Units 05:42 05:42 06:04 WBC 2.8 L (3.8-10.6) k/uL MCHC 29.5 L (31.0-37.0) g/dL RDW 16.8 H (11.5-15.5) % Lymphocytes # 0.6 L (1.0-4.8) k/uL ABG pH (7.35-7.45) ABG pCO2 (35-45) mmHg ABG HCO3 (21-25) mmol/L ABG Total CO2 (19-24) mmol/L ABG O2 Saturation (94-97) % Potassium 5.2 H (3.5-5.1) mmol/L Chloride 109 H (98-107) mmol/L Carbon Dioxide 34 H (22-30) mmol/L BUN 53 H (7-17) mg/dL Creatinine 2.14 H (0.52-1.04) mg/dL Glucose 53 L (74-99) mg/dL POC Glucose (mg/dL) 51 L (75-99) mg/dL Alkaline Phosphatase 35 L (38-126) U/L Total Protein 5.2 L (6.3-8.2) g/dL Albumin 2.7 L (3.5-5.0) g/dL 08/27/20 Range/Units 06:19 WBC (3.8-10.6) k/uL MCHC (31.0-37.0) g/dL RDW (11.5-15.5) % Lymphocytes # (1.0-4.8) k/uL ABG pH (7.35-7.45) ABG pCO2 (35-45) mmHg ABG HCO3 (21-25) mmol/L ABG Total CO2 (19-24) mmol/L ABG O2 Saturation (94-97) % Potassium (3.5-5.1) mmol/L Chloride (98-107) mmol/L Carbon Dioxide (22-30) mmol/L BUN (7-17) mg/dL Creatinine (0.52-1.04) mg/dL Glucose (74-99) mg/dL POC Glucose (mg/dL) 54 L (75-99) mg/dL Alkaline Phosphatase (38-126) U/L Total Protein (6.3-8.2) g/dL Albumin (3.5-5.0) g/dL
--- NOTE | 2020-08-27 16:49 | P.PN ---
Subjective Progress Note Date: 08/27/20 The patient was seen at the for the first time but was [place] by Dr. Charles on 08/26/2020 for neurological stand point. Per Dr. Charles the patient had the myoclonus and asterixis due to elevated CO2 and renal failure. Patient was started prophylactically on Keppra 500 mg twice a day. Per the patient's nurse yesterday she had that severe myoclonus and there is a concern that she had a seizure about one she received oxygen her condition improved. Today per the patient nurse her condition is a drastically improved and no further myoclonic jerks. An EEG is ordered by the primary team. Objective - Vital Signs Vital signs: Vital Signs Temp 98.1 F 08/27/20 16:00 Pulse 96 08/27/20 16:00 Resp 18 08/27/20 16:00 BP 124/63 08/27/20 16:00 Pulse Ox 96 08/27/20 16:00 Intake & Output 08/26/20 08/27/20 08/27/20 18:59 06:59 18:59 Intake Total 236 486 Output Total 1000 450 900 Balance -764 -450 -414 Weight 128 kg Intake: Oral 236 486 Output: Urine 1000 450 900 Other: Voiding Method Toilet Indwelling Catheter - Exam GENERAL: The patient is lying in bed and is not in acute distress. NEUROLOGICAL: Higher mental function: The patient is awake, alert, oriented to self, place. She stated the year was 2020 but did not know the month. Patient is following commands. No aphasia and no neglect. Cranial nerves: The pupils are round, equal and reactive to light and accommodation. Visual valdez are full to confrontation throughout. Extraocular movement is intact no nystagmus is noted. Facial sensation is normal to touch throughout. The facial strength is normal throughout. Tongue is midline and moved [id number] without any difficulty. No dysarthria is noted. Shoulder shrug is normal bilaterally. Motor: Gait is deferred. The strength is 5 over 5 throughout. Normal tone and bulk. Sensation: Sensation is normal to touch throughout. - Labs CBC & Chem 7: 08/27/20 05:42 08/27/20 05:42 Labs: Abnormal Lab Results - Last 24 Hours (Table) 08/26/20 08/26/20 08/26/20 Range/Units 17:15 17:27 17:31 WBC (3.8-10.6) k/uL MCHC (31.0-37.0) g/dL RDW (11.5-15.5) % Lymphocytes # (1.0-4.8) k/uL Potassium (3.5-5.1) mmol/L Chloride (98-107) mmol/L Carbon Dioxide (22-30) mmol/L BUN (7-17) mg/dL Creatinine (0.52-1.04) mg/dL Glucose (74-99) mg/dL POC Glucose (mg/dL) 40 L 40 L 59 L (75-99) mg/dL Alkaline Phosphatase (38-126) U/L Total Protein (6.3-8.2) g/dL Albumin (3.5-5.0) g/dL 08/27/20 08/27/20 08/27/20 Range/Units 05:42 05:42 06:04 WBC 2.8 L (3.8-10.6) k/uL MCHC 29.5 L (31.0-37.0) g/dL RDW 16.8 H (11.5-15.5) % Lymphocytes # 0.6 L (1.0-4.8) k/uL Potassium 5.2 H (3.5-5.1) mmol/L Chloride 109 H (98-107) mmol/L Carbon Dioxide 34 H (22-30) mmol/L BUN 53 H (7-17) mg/dL Creatinine 2.14 H (0.52-1.04) mg/dL Glucose 53 L (74-99) mg/dL POC Glucose (mg/dL) 51 L (75-99) mg/dL Alkaline Phosphatase 35 L (38-126) U/L Total Protein 5.2 L (6.3-8.2) g/dL Albumin 2.7 L (3.5-5.0) g/dL 08/27/20 08/27/20 08/27/20 Range/Units 06:19 12:26 12:44 WBC (3.8-10.6) k/uL MCHC (31.0-37.0) g/dL RDW (11.5-15.5) % Lymphocytes # (1.0-4.8) k/uL Potassium (3.5-5.1) mmol/L Chloride (98-107) mmol/L Carbon Dioxide (22-30) mmol/L BUN (7-17) mg/dL Creatinine (0.52-1.04) mg/dL Glucose (74-99) mg/dL POC Glucose (mg/dL) 54 L 70 L 161 H (75-99) mg/dL Alkaline Phosphatase (38-126) U/L Total Protein (6.3-8.2) g/dL Albumin (3.5-5.0) g/dL Assessment and Plan Assessment: 1. Myoclonus and asterixis likely secondary to hypercarbia and hypoxia, as well as acute on chronic renal failure 2. Mild metabolic encephalopathy secondary to hypercarbia, hypoxemia and acute renal failure--improving Plan: I will stop Keppra since the patient does not have a seizures and these myoclonic are due to metabolic reasons. An EEG is not warranted at this time. We'll defer the rest of medical management to the primary team. There is no further neurological workup needed at this time. We'll sign off. Please reconsult if needed. I discussed with the patient nurse as well as the patient. Zeke Dexter MD Neuro-Hospitalist Time with Patient: Less than 30
[2020-08-27 17:25] LABS: Glucose,Whole Blood 152 mg/dL (75-99)
[2020-08-27 20:18] LABS: Glucose,Whole Blood 83 mg/dL (75-99)
[2020-08-27] MEDS: ATORVASTATIN 40 MG TAB PO SCH (21:08)
[2020-08-27] MEDS: MONTELUKAST 10 MG TAB PO SCH (21:09)
[2020-08-28 02:03] LABS: Glucose,Whole Blood 80 mg/dL (75-99)
[2020-08-28 06:18] LABS: Glucose,Whole Blood 153 mg/dL (75-99)
[2020-08-28] MEDS: INSULIN ASPART (NovoLOG) 100 UNIT/ML VIAL SQ SCH ×5 (06:24→20:24)
[2020-08-28 07:17] LABS: Calcium 8.5 mg/dL (8.4-10.2); Magnesium 2.5 mg/dL (1.6-2.3); Potassium 5.4 mmol/L (3.5-5.1)
[2020-08-28] MEDS: cloNIDine HCL 0.1 MG TAB PO SCH ×3 (09:32→20:25)
[2020-08-28] MEDS: LOSARTAN 50 MG TAB PO SCH (09:32)
[2020-08-28] MEDS: METOPROLOL TARTRATE 50 MG TAB PO SCH ×2 (09:32→20:25)
[2020-08-28] MEDS: SENNOSIDES-DOCUSATE SODIUM 1 EACH TAB PO SCH ×2 (09:32→20:25)
[2020-08-28] MEDS: NORTRIPTYLINE 25 MG CAP PO SCH (09:32)
[2020-08-28] MEDS: ASPIRIN 81 MG PO SCH (09:32)
[2020-08-28] MEDS: FENOFIBRATE 160 MG TAB PO SCH (09:32)
[2020-08-28] MEDS: FUROSEMIDE 10 MG/ML 4 ML VIAL IV SCH (09:33)
[2020-08-28] MEDS: HEPARIN SODIUM,PORCINE 5,000 UNIT/ML 1 ML VIAL SQ SCH ×3 (09:33→23:19)
[2020-08-28] MEDS: hydrALAZINE HCL 50 MG TAB PO SCH ×2 (09:33→20:24)
[2020-08-28] MEDS: CEPHALEXIN 250 MG CAP PO SCH ×3 (09:33→20:25)
[2020-08-28 12:15] LABS: Glucose,Whole Blood 165 mg/dL (75-99)
--- NOTE | 2020-08-28 13:40 | P.PN ---
Subjective Patient is seen in follow-up for acute kidney injury and chronic kidney disease. Renal function slightly better today. She is maintained on IV Lasix. Edema improving. Nonoliguric. Currently on 2 L nasal cannula. No chest pain or shortness of breath. Oral intake fair. Vital signs are stable. General: The patient appeared well nourished and normally developed. HEENT: Head exam is unremarkable. Neck is without jugular venous distension. LUNGS: Breath sounds decreased. HEART: Rate and Rhythm are regular. ABDOMEN: Soft, nontender. EXTREMITITES: 1+ edema. Worse on the right. Objective - Vital Signs Vital signs: Vital Signs Temp 97.8 F 08/28/20 04:10 Pulse 78 08/28/20 04:10 Resp 16 08/28/20 04:10 BP 145/87 08/28/20 04:10 Pulse Ox 94 L 08/28/20 04:10 Intake & Output 08/27/20 08/28/20 08/28/20 18:59 06:59 18:59 Intake Total 486 400 Output Total 1700 1450 Balance -1214 -1050 Weight 105.5 kg Intake: Oral 486 400 Output: Urine 1700 1450 Other: Voiding Method Indwelling Catheter Indwelling Catheter - Labs CBC & Chem 7: 08/27/20 05:42 08/28/20 06:43 Labs: Abnormal Lab Results - Last 24 Hours (Table) 08/27/20 08/28/20 08/28/20 Range/Units 17:23 06:17 06:43 Potassium 5.4 H (3.5-5.1) mmol/L Carbon Dioxide 36 H (22-30) mmol/L BUN 55 H (7-17) mg/dL Creatinine 2.04 H (0.52-1.04) mg/dL Glucose 144 H (74-99) mg/dL POC Glucose (mg/dL) 152 H 153 H (75-99) mg/dL Magnesium 2.5 H (1.6-2.3) mg/dL 08/28/20 Range/Units 12:14 Potassium (3.5-5.1) mmol/L Carbon Dioxide (22-30) mmol/L BUN (7-17) mg/dL Creatinine (0.52-1.04) mg/dL Glucose (74-99) mg/dL POC Glucose (mg/dL) 165 H (75-99) mg/dL Magnesium (1.6-2.3) mg/dL Assessment and Plan Plan: Assessment: 1. Acute kidney injury mostly prerenal secondary to cardiorenal syndrome. Renal function slightly better. Creatinine 2.04 today. 2. Acute on chronic diastolic CHF. 3. Volume overload. 4. Chronic kidney disease stage IIIa with baseline creatinine in the range of 1-1.4 in 2018. Etiology is diabetic kidney disease. 5. Diabetes mellitus. 6. Hypertension with chronic kidney disease. Controlled. Plan: Maintain Lasix 40 mg IV daily. 1500 mL fluid restriction and renal diet. Avoid nephrotoxins. Continue to monitor renal function and urine output. If potassium level not better tomorrow, will further decrease dose of losartan. Patient was advised to follow-up patient in 1-2 weeks upon discharge.
--- NOTE | 2020-08-28 14:33 | P.PN ---
Subjective Progress Note Date: 08/28/20 This is a 60-year-old female patient at [facility] with past medical history significant for COPD, diabetes mellitus type 2, gastroesophageal reflux disease, hypertension, hyperlipidemia, generalized osteoarthritis, remote history of tobacco use and dependence. She gives history that she was recently hospitalized at [facility] with edema more so to the right lower extremity. She was placed on steroids which she thinks made her swelling worse. She was admitted for shortness of breath and continued shortness Soreness of breath at the time of discharge. She states she is short of breath with ambulation. No chest pain. She also was treated for left breast mastitis and placed on antibiotics. Patient states that she has had continued shortness of breath, no fever or chills. She continues to have erythema and edema to the left breast as well. She came into [facility] emergency center for evaluation. EKG was sinus rhythm with heart rate of 97 with nonspecific changes in the precordial leads. VQ scan is low probability for PE. Chest xray pleural effusions and left lower lobe pneumonia, possible small right-sided pneumothorax. Troponin 0.062, 0.055, 0.055, WBC 4.5, hemoglobin 11.9, platelets 276, d-dimer 7.02, sodium 143, potassium 5.1, creatinine 1.93, ProBNP 9410. patient admitted to the cardiac stepdown unit and consult in place with cardiology 08/25 and patient examined bedside. Continues to feel better. Improved shortness of breath and lower extremity swelling. Lasix reduced to 40 mg IV daily. Continue Keflex for cellulitis . Vitals are stable patient's blood pressure is running on the lower side. Last blood pressure reported to be 96/64 BP suggest a creatinine 2.15 BUN 44 A1c 7. Echo obtained on 08/24 suggest surveillance Ed Aury left ventricular hypertropia with normal ejection fraction 55-60% and trace mitral regurgitation and tricuspid regurgitation seen. 08/26 patient examined bedside. A team was called on the patient earlier today due to concern for jerking movements involving the upper extremity. Patient was also found to be unresponsive ABG was obtained pH of 7.28 pCO2 of 73 pO2 of 90 bicarb 37. Patient was placed on BiPAP with improvement in mental status. Jerking movements were noted in the upper extremities. Multiple medications including baclofen, gabapentin and glipizide was discontinued. Patient did have episodes of hypoglycemia this morning and that was corrected. On assessment today mild jerking movement of the upper extremity on the left was noted. EEG ordered. CAT scan of the head was obtained and was negative for any acute process. Neurology was consulted. Detailed discussion on patient's prognosis was done with the daughter bedside. Patient's daughter was concerned of her mother's health and wanted her transferred to outside facility or leaving AMA. On explanation of patient's condition and her intolerability to nasal cannula, patient daughter agreed on keeping the patient in the hospital and not going against medical advise. Nephrology was consulted, urine protein creatinine ratio obtained as there is a concern for diabetic nephropathy contributing to patient's lower extremity edema. Amlodipine was discontinued to improve patient's lower extremity swelling. Patient to stay on BiPAP today on and off. Repeat ABG to be obtained after 3 hours on BiPAP today. If patient does not improve on the above measures, Patient will be transferred to ICU. Patient's condition is guarded and family updated on the plan 08/27: Patient has been seen by pulmonary medicine. Ultrasound revealed left- sided pleural effusion 7.6 cm to small and will monitor. Patient states that she is feeling good today. She states her breathing is significantly improved. She has been using BiPAP when sleeping. She has a Hyatt in place. She has been diuresing well. Patient is been afebrile, heart rate 88, blood pressure 120/62. Blood sugar at 6 AM was 54. Repeat blood work reveals WBC 2.8, hemoglobin 11.8. Potassium 5.2, chloride 109, CO2 34, BUN 53 and creatinine 2.14. EEG is pending. Patient was started on Keppra by neurology. PT and OT added 08/28: Patient states that she is feeling better today. She is denying shortness of breath and no chest pain. She is continued on IV Lasix. Cardiology has signed off her case. Hyatt catheter will be discontinued today. She is on O2 at 2 L nasal cannula. Nephrology recommends continuing Lasix 40 mg IV daily, 1500 mL fluid restriction and monitor renal function. Patient is to follow-up in one to 2 weeks after discharge. Patient has been afebrile, heart rate 78, blood pressure 145/87, pulse ox 94% on 2 L nasal cannula. Repeat blood work reveals sodium 143, potassium 5.4, chloride 106, CO2 36, BUN 55 and creatinine 2.04. Blood sugars running between 80 and 165. Neurology has stopped Keppra. REVIEW OF SYSTEMS Constitutional: No fever, no chills, no night sweats. No weight change. No weakness, fatigue or lethargy. No daytime sleepiness. EENT: No headache. No blurred vision or double vision, no loss of vision. No loss of Hearing, no ringing in the ears, no dizziness. No nasal drainage or congestion. No epistaxis. No sore throat. Lungs: Reports shortness of breath, cough, no sputum production. No wheezing. Reports shortness of breath with exertion. Cardiovascular: No chest pain, reports lower extremity edema. No palpitations. No paroxysmal nocturnal dyspnea. No orthopnea. No lightheadedness or dizziness. No syncopal episodes. positive for dyspnea Abdominal: No abdominal pain. No nausea, vomiting. No diarrhea. No constipation. No bloody or tarry stools.. No loss of appetite. Genitourinary: No dysuria, increased frequency, urgency. No urinary retention. Musculoskeletal: No myalgias. No muscle weakness, no gait dysfunction, no frequent falls. No back pain. No neck pain. Integumentary: No wounds, no lesions. No rash or pruritus. No unusual bruising. No change in hair or nails. Neurologic: No aphasia. No facial droop. No change in mentation. No head injury. No headache. No paralysis. No paresthesia. positive for jerking movement involving the left upper extremity Psychiatric: No depression. No anxiety. Endocrine: No abnormal blood sugars. No weight change. PHYSICAL EXAMINATION Gen: This priscila 60-year-old -[place] female. She is resting in bed appears to be comfortable. No acute respiratory distress is noted at rest. HEENT: Head is atraumatic, normocephalic. Pupils equal, round. Sclerae is anicteric. NECK: Supple. No JVD. No lymphadenopathy. No thyromegaly. LUNGS: reveals diminished bilaterally, few expiratory wheeze. Accessory muscle usage No intercostal retractions. Breast exam does suggest swelling and redness involving the left breast no lymphadenopathy HEART: Regular rate and rhythm. No murmur. ABDOMEN: Soft. Bowel sounds are present. No masses. No tenderness. EXTREMITIES: right lower extremity with 1+ pedal edema. left lower externa with trace pedal edema. Dorsalis pedis +2 bilaterally. No calf tenderness. NEUROLOGICAL: Patient is awake, alert and oriented x3. ASSESSMENT AND PLAN 1. Acute diastolic heart failure. Cardiology consult appreciated. Echocardiogram as above, Lasix 40 mg IV daily, monitor I&O and daily weights. 2. Troponin elevation secondary to renal function. 3. Acute kidney injury secondary to combination of diabetic nephropathy and cardiorenal syndrome. Avoid nephrotoxic agents. Okay to continue Lasix and losartan for now. Nephrology consulted Repeat labs in the morning 4. Chronic kidney disease stage III. Likely secondary to diabetic nephropathy urine protein and creatinine ratio obtained. 5. Left-sided mastitis. Continue Keflex. Ultrasound breast on 08/20 suggestive of cellulitis patient need mammogram after acute inflammation is resolved 6. Hypertension. Norvasc discontinued lower extremity edema, losartan 50 mg daily, Lopressor 100 mg once daily, clonidine 0.1 mg 3 times daily, hydralazine 50 mg every 12 hours,. Home medication list states lisinopril 40 and losartan. Patient verbalizes that lisinopril was discontinued. Discussed Lopressor and verapamil with cardiology and preference is to continue Lopressor and hold verapamil. 7. Hyperlipidemia. Continue atorvastatin 40 mg at bedtime 8. Diabetes mellitus type 2. Continue Levemir, dose will be clarified with the patient. NovoLog scale before meals and at bedtime. Hold Actos 30 mg daily. Glipizide discontinued 8. COPD. continue albuterol inhaler 2 puffs every 6 hours as needed. 10. Tobacco use and dependence. Smoking cessation. 11. Gastroesophageal reflux disease. 12. Diabetic neuropathy. Gabapentin discontinuing need to reduce her dose on discharge #13. Mild clonus and asterixis likely secondary to hypercarbia and hypoxia as well as acute on chronic renal failure. Keppra discontinued. No EEG needed at this time. Neurology consult appreciated. #14 acute hypoxic hypercapnic respiratory failure secondary to acute diastolic congestive heart failure. Continue Lasix at 40 IV daily. Continue BiPAP intermittently. Chest x-ray with moderate pleural effusion. Pulmonary consult appreciated #15 acute metabolic encephalopathy likely secondary to medications, acute ur emia, CO2 retention and underlying obstructive sleep apnea. Remove contributing medication. Hold gabapentin, hold baclofen. Nephrology consulted. Discharge plan: Home tomorrow Impression and plan of care have been directed as dictated by the signing physician. Kathe North nurse practitioner acting as scribe for signing physician. Objective - Vital Signs Vital signs: Vital Signs Temp 97.8 F 08/28/20 04:10 Pulse 78 08/28/20 04:10 Resp 16 08/28/20 04:10 BP 145/87 08/28/20 04:10 Pulse Ox 94 L 08/28/20 04:10 Intake & Output 08/27/20 08/28/20 08/28/20 18:59 06:59 18:59 Intake Total 486 400 Output Total 1700 1450 Balance -1214 -1050 Weight 105.5 kg Intake: Oral 486 400 Output: Urine 1700 1450 Other: Voiding Method Indwelling Catheter Indwelling Catheter - Labs CBC & Chem 7: 08/27/20 05:42 08/28/20 06:43 Labs: Abnormal Lab Results - Last 24 Hours (Table) 08/27/20 08/27/20 08/27/20 Range/Units 12:26 12:44 17:23 Potassium (3.5-5.1) mmol/L Carbon Dioxide (22-30) mmol/L BUN (7-17) mg/dL Creatinine (0.52-1.04) mg/dL Glucose (74-99) mg/dL POC Glucose (mg/dL) 70 L 161 H 152 H (75-99) mg/dL Magnesium (1.6-2.3) mg/dL 08/28/20 08/28/20 Range/Units 06:17 06:43 Potassium 5.4 H (3.5-5.1) mmol/L Carbon Dioxide 36 H (22-30) mmol/L BUN 55 H (7-17) mg/dL Creatinine 2.04 H (0.52-1.04) mg/dL Glucose 144 H (74-99) mg/dL POC Glucose (mg/dL) 153 H (75-99) mg/dL Magnesium 2.5 H (1.6-2.3) mg/dL
--- NOTE | 2020-08-28 15:35 | P.PN ---
Subjective Progress Note Date: 08/28/20 Principal diagnosis: Pleural effusion. 60-year-old female who presented to the emergency department on 08/23/2020, at 2232. Her major complaint when presenting to the emergency department was that of shortness of breath. The patient apparently also complained of swelling in her lower extremities, right greater than left. She was apparently recently at [facility] from to , for similar episode. She apparently was discharged after being told she had asthma and COPD, with albuterol, Singulair, antibiotics, and steroids. She was also suspected to have mastitis on the left. She apparently was given IV fluids and steroids at [facility], which apparently caused her to have pain and swelling to her legs. I was asked to see her after she's been here in the hospital for a couple of days, because of the potential left-sided pleural effusion. The patient's on a couple of liters of O2 and states that her breathing is much improved. Her chest x-ray shows what appears to be relatively smaller left- sided pleural effusion. A Doppler of the posterior left chest will be ordered. She denies any fever or chills. She denies any cough or phlegm production. She states that her breathing is much improved. She apparently carries with her diagnosis of COPD from previous tobacco use, diabetes mellitus, gastroesophageal reflux disease, hyperlipidemia, essential hypertension, and arthritis. Progress note dated 08/28/2020. This is a 60-year-old black female, who presented to the emergency department on August 23, complaining of shortness of breath. She also had significant swelling in her lower extremities, right greater than left. She was inpatient, at [facility] from August 06 to August 09, for similar episode. She apparently was discharged after being told she had asthma and COPD, and she was sent home with albuterol, Singulair, antibiotics and steroids. We were consulted primarily for the left sided pleural effusion. The ultrasound of the chest showed a small to medium sized effusion, and because of the patient's body habitus, thoracentesis at this time will not be done. The patient does have a history of COPD from prior tobacco use, diabetes mellitus, gastroesophageal ref lux disease, hyperlipidemia, essential hypertension, and arthritis. She is not demonstrating any respiratory distress, and her saturations are mid to high 90s on 2 L of oxygen. Objective - Vital Signs Vital signs: Vital Signs Temp 97.8 F 08/28/20 04:10 Pulse 78 08/28/20 04:10 Resp 16 08/28/20 04:10 BP 145/87 08/28/20 04:10 Pulse Ox 94 L 08/28/20 04:10 Intake & Output 08/27/20 08/28/20 08/28/20 18:59 06:59 18:59 Intake Total 486 400 Output Total 1700 1450 Balance -1214 -1050 Weight 105.5 kg Intake: Oral 486 400 Output: Urine 1700 1450 Other: Voiding Method Indwelling Catheter Indwelling Catheter - Exam No acute distress, oriented 3. Nasal O2 2 L noted. No conversational dyspnea, audible wheezing, or use of accessory muscles. HEENT examination is grossly unremarkable. Mucous membranes are moist. No oral lesions. Neck supple. Full range of motion. No adenopathy thyromegaly or neck vein distention. Cardiovascular examination reveals regular rhythm rate. S1-S2 normal. No S3 or S4. No discernible murmur noted. Heart rate is 78 bpm. Lungs reveal mostly clear breath sounds. A few crackles at the bases are noted, left greater than right. No rhonchi or wheezes. Abdomen obese but soft. Bowel sounds are noted. Extremities are intact. No cyanosis or clubbing. Bilateral lower extremity edema noted, right greater than left. Skin is without rash or lesion. Neurologic examination is brief but nonfocal. - Labs CBC & Chem 7: 08/27/20 05:42 08/28/20 06:43 Labs: Abnormal Lab Results - Last 24 Hours (Table) 08/27/20 08/28/20 08/28/20 Range/Units 17:23 06:17 06:43 Potassium 5.4 H (3.5-5.1) mmol/L Carbon Dioxide 36 H (22-30) mmol/L BUN 55 H (7-17) mg/dL Creatinine 2.04 H (0.52-1.04) mg/dL Glucose 144 H (74-99) mg/dL POC Glucose (mg/dL) 152 H 153 H (75-99) mg/dL Magnesium 2.5 H (1.6-2.3) mg/dL 08/28/20 Range/Units 12:14 Potassium (3.5-5.1) mmol/L Carbon Dioxide (22-30) mmol/L BUN (7-17) mg/dL Creatinine (0.52-1.04) mg/dL Glucose (74-99) mg/dL POC Glucose (mg/dL) 165 H (75-99) mg/dL Magnesium (1.6-2.3) mg/dL Assessment and Plan Assessment: Shortness of breath, much improved, likely secondary to acute diastolic CHF and left-sided pleural effusion. COPD does not appear to be particularly active at this time. Small to moderate left-sided effusion, measuring 7.6 cm. Apparent history of COPD, from previous tobacco use. Chronic hypoxemic and hypercapnic respiratory failure. Obesity. History of diabetes mellitus. History of hyperlipidemia. History of hypertension. History of gastroesophageal reflux disease. Chronic kidney disease. Rule out Pickwickian syndrome, and obstructive sleep apnea syndrome. Plan: Plan dated 08/28/2020. The left-sided pleural effusion is small to moderate in size. They're likely just watch it at this time. Technically, she may be a difficult thoracentesis given her body habitus. Clinically she is doing better. She feels much less short of breath. She will need extensive outpatient pulmonary evaluation including a pulmonary function test, and also a 6 minute walk distance. Additional recommendations and suggestions are forthcoming. Current labs from today include a sodium of 143, potassium 5.4, chlorides 106, CO2 36, anion gap 1, BUN 55, and creatinine 2.04. We will continue to follow make additional recommendations were appropriate. Time with Patient: Less than 30
[2020-08-28 17:29] LABS: Glucose,Whole Blood 210 mg/dL (75-99)
[2020-08-28 20:15] LABS: Glucose,Whole Blood 198 mg/dL (75-99)
[2020-08-28] MEDS: ATORVASTATIN 40 MG TAB PO SCH (20:24)
[2020-08-28] MEDS: MONTELUKAST 10 MG TAB PO SCH (20:25)
[2020-08-29 06:13] LABS: Glucose,Whole Blood 170 mg/dL (75-99)
[2020-08-29] MEDS: INSULIN ASPART (NovoLOG) 100 UNIT/ML VIAL SQ SCH ×2 (06:22→12:39)
[2020-08-29 08:06] LABS: Calcium 8.9 mg/dL (8.4-10.2); Magnesium 2.5 mg/dL (1.6-2.3)
[2020-08-29] MEDS: FENOFIBRATE 160 MG TAB PO SCH (08:44)
[2020-08-29] MEDS: hydrALAZINE HCL 50 MG TAB PO SCH (08:44)
[2020-08-29] MEDS: cloNIDine HCL 0.1 MG TAB PO SCH (08:44)
[2020-08-29] MEDS: METOPROLOL TARTRATE 50 MG TAB PO SCH (08:44)
[2020-08-29] MEDS: HEPARIN SODIUM,PORCINE 5,000 UNIT/ML 1 ML VIAL SQ SCH (08:44)
[2020-08-29] MEDS: ASPIRIN 81 MG PO SCH (08:44)
[2020-08-29] MEDS: SENNOSIDES-DOCUSATE SODIUM 1 EACH TAB PO SCH (08:44)
[2020-08-29] MEDS: LOSARTAN 50 MG TAB PO SCH (08:44)
[2020-08-29] MEDS: FUROSEMIDE 10 MG/ML 4 ML VIAL IV SCH (08:44)
[2020-08-29] MEDS: NORTRIPTYLINE 25 MG CAP PO SCH (08:45)
[2020-08-29] MEDS: CEPHALEXIN 250 MG CAP PO SCH (08:45)
[2020-08-29 09:43] VITALS: RESP 20
--- NOTE | 2020-08-29 10:53 | P.DS ---
Providers Date of admission: 08/24/20 02:02 Expected date of discharge: 08/29/20 Attending physician: Eliana Delgadillo MD Consults: 08/25/20 17:59 Consult Physician Routine Consulting Provider: Arabella Charles Consult Reason/Comments: Neurological Do you want consulting provider notified?: Yes 08/26/20 11:28 Consult Physician Routine Consulting Provider: Boris Matos Consult Reason/Comments: matteo Do you want consulting provider notified?: Yes 08/26/20 15:23 Consult Physician Routine Consulting Provider: Andre Hooper Consult Reason/Comments: b/l pleural effusion, possible thracentesis Do you want consulting provider notified?: Yes Primary care physician: [facility] Course: This is a 60-year-old female patient at [facility] with past medical history significant for COPD, diabetes mellitus type 2, gastroesophageal reflux disease, hypertension, hyperlipidemia, generalized osteoarthritis, remote history of tobacco use and dependence. She gives history that she was recently hospitalized at [facility] with edema more so to the right lower extremity. She was placed on steroids which she thinks made her swelling worse. She was admitted for shortness of breath and continued shortness Soreness of breath at the time of discharge. She states she is short of breath with ambulation. No chest pain. She also was treated for left breast mastitis and placed on antibiotics. Patient states that she has had continued shortness of breath, no fever or chills. She continues to have erythema and edema to the left breast as well. She came into [facility] emergency center for evaluation. EKG was sinus rhythm with heart rate of 97 with nonspecific changes in the precordial leads. VQ scan is low probability for PE. Chest xray pleural effusions and left lower lobe pneumonia, possible small right-sided pneumothorax. Troponin 0.062, 0.055, 0.055, WBC 4.5, hemoglobin 11.9, platelets 276, d-dimer 7.02, sodium 143, potassium 5.1, creatinine 1.93, ProBNP 9410. patient admitted to the cardiac stepdown unit and consult in place with cardiology 08/25 and patient examined bedside. Continues to feel better. Improved shortness of breath and lower extremity swelling. Lasix reduced to 40 mg IV daily. Continue Keflex for cellulitis . Vitals are stable patient's blood pressure is running on the lower side. Last blood pressure reported to be 96/64 BP suggest a creatinine 2.15 BUN 44 A1c 7. Echo obtained on 08/24 suggest surveillance Ed Aury left ventricular hypertropia with normal ejection fraction 55-60% and trace mitral regurgitation and tricuspid regurgitation seen. 08/26 patient examined bedside. A team was called on the patient earlier today due to concern for jerking movements involving the upper extremity. Patient was also found to be unresponsive ABG was obtained pH of 7.28 pCO2 of 73 pO2 of 90 bicarb 37. Patient was placed on BiPAP with improvement in mental status. Jerking movements were noted in the upper extremities. Multiple medications including baclofen, gabapentin and glipizide was discontinued. Patient did have episodes of hypoglycemia this morning and that was corrected. On assessment today mild jerking movement of the upper extremity on the left was noted. EEG ordered. CAT scan of the head was obtained and was negative for any acute process. Neurology was consulted. Detailed discussion on patient's prognosis was done with the daughter bedside. Patient's daughter was concerned of her mother's health and wanted her transferred to outside facility or leaving AMA. On explanation of patient's condition and her intolerability to nasal cannula, patient daughter agreed on keeping the patient in the hospital and not going ag [facility] medical advise. Nephrology was consulted, urine protein creatinine ratio obtained as there is a concern for diabetic nephropathy contributing to patient's lower extremity edema. Amlodipine was discontinued to improve patient's lower extremity swelling. Patient to stay on BiPAP today on and off. Repeat ABG to be obtained after 3 hours on BiPAP today. If patient does not improve on the above measures, Patient will be transferred to ICU. Patient's condition is guarded and family updated on the plan 08/27: Patient has been seen by pulmonary medicine. Ultrasound revealed left- sided pleural effusion 7.6 cm to small and will monitor. Patient states that she is feeling good today. She states her breathing is significantly improved. She has been using BiPAP when sleeping. She has a Hyatt in place. She has been diuresing well. Patient is been afebrile, heart rate 88, blood pressure 120/62. Blood sugar at 6 AM was 54. Repeat blood work reveals WBC 2.8, hemoglobin 11.8. Potassium 5.2, chloride 109, CO2 34, BUN 53 and creatinine 2.14. EEG is pending. Patient was started on Keppra by neurology. PT and OT added 08/28: Patient states that she is feeling better today. She is denying shortness of breath and no chest pain. She is continued on IV Lasix. Cardiology has signed off her case. Hyatt catheter will be discontinued today. She is on O2 at 2 L nasal cannula. Nephrology recommends continuing Lasix 40 mg IV daily, 1500 mL fluid restriction and monitor renal function. Patient is to follow-up in one to 2 weeks after discharge. Patient has been afebrile, heart rate 78, blood pressure 145/87, pulse ox 94% on 2 L nasal cannula. Repeat blood work reveals sodium 143, potassium 5.4, chloride 106, CO2 36, BUN 55 and creatinine 2.04. Blood sugars running between 80 and 165. Neurology has stopped Keppra. 08/29: Patient denies any new complaints. Her breathing status is stable. She states she uses a walker to ambulate at home. Her sister is home as her caregiver. Patient has been afebrile, heart rate 85, blood pressure 144/83, pulse ox 95% on 2 L nasal cannula. Repeat blood work reveals CO2 of 38, BUN 52 and creatinine 1.93. Blood sugars running between 120 998. Patient will be discharged home today in stable condition. ASSESSMENT AND PLAN 1. Acute toxic hypercapnic respiratory failure secondary to acute diastolic heart failure. 2. Troponin elevation secondary to renal function. 3. Acute kidney injury secondary to combination of diabetic nephropathy and cardiorenal syndrome. 4. Chronic kidney disease stage III. 5. Left-sided mastitis. 6. Hypertension. 7. Hyperlipidemia. 8. Diabetes mellitus type 2. 8. COPD. 10. Tobacco use and dependence. Smoking cessation. 11. Gastroesophageal reflux disease. 12. Diabetic neuropathy. 13. Mild clonus and asterixis likely secondary to hypercarbia and hypoxia as well as acute on chronic renal failure. 14. Acute metabolic encephalopathy likely secondary to medications, acute uremia, CO2 retention and underlying obstructive sleep apnea. Discharge plan: Home Impression and plan of care have been directed as dictated by the signing physician. Kathe North nurse practitioner acting as scribe for signing physician Patient Condition at Discharge: Good Plan - Discharge Summary Discharge Rx Participant: Yes New Discharge Prescriptions: New Aspirin 81 mg PO DAILY chew Losartan [Cozaar] 50 mg PO DAILY #30 tab Furosemide [Lasix] 40 mg PO BID #60 tablet Atorvastatin [Lipitor] 40 mg PO HS #30 tab Metoprolol Tartrate [Lopressor] 50 mg PO BID #60 tab Continue HYDROcodone/APAP 10-325MG [[place] 10-325] 1 tab PO Q6HR PRN PRN Reason: Pain Cephalexin [Keflex] 500 mg PO Q6HR #40 cap Albuterol Sulfate [Proair Hfa] 1 - 2 puff INHALATION RT-Q6H PRN PRN Reason: Shortness Of Breath Baclofen 10 mg PO BID cloNIDine HCL [Catapres] 0.1 mg PO TID Ergocalciferol [Vitamin D2 (1250 Mcg = 96897 Iu)] 1,250 mcg PO Q7D Fenofibrate 160 mg PO DAILY hydrALAZINE HCL 50 mg PO Q12H Insulin Glargine [Lantus] See Protocol SQ HS INSULIN LISPRO (humaLOG) [humaLOG] See Protocol SQ AC-TID Loratadine [Claritin] 10 mg PO DAILY Montelukast [Singulair] 10 mg PO HS Nortriptyline [Pamelor] 25 mg PO DAILY Pioglitazone [Actos] 30 mg PO DAILY Polyethylene Glycol 3350 [Miralax] 17 gm PO DAILY PRN PRN Reason: Constipation Sennosides-Docusate Sodium [Senokot-S] 1 tab PO BID Triamcinolone 0.025% Cream [Kenalog 0.025% Cream] 1 applic TOPICAL DAILY PRN PRN Reason: Itching Discontinued lisinopriL 40 mg PO DAILY Losartan Potassium 100 mg PO DAILY Verapamil HCl [Verapamil ER] 240 mg PO DAILY Discharge Medication List HYDROcodone/APAP 10-325MG [[place] 10-325] 1 tab PO Q6HR PRN 05/21/15 [History] Cephalexin [Keflex] 500 mg PO Q6HR #40 cap 08/20/20 [Rx] Albuterol Sulfate [Proair Hfa] 1 - 2 puff INHALATION RT-Q6H PRN 08/24/20 [History] Baclofen 10 mg PO BID 08/24/20 [History] Ergocalciferol [Vitamin D2 (1250 Mcg = 70847 Iu)] 1,250 mcg PO Q7D 08/24/20 [History] Fenofibrate 160 mg PO DAILY 08/24/20 [History] INSULIN LISPRO (humaLOG) [humaLOG] See Protocol SQ AC-TID 08/24/20 [History] Insulin Glargine [Lantus] See Protocol SQ HS 08/24/20 [History] Loratadine [Claritin] 10 mg PO DAILY 08/24/20 [History] Montelukast [Singulair] 10 mg PO HS 08/24/20 [History] Nortriptyline [Pamelor] 25 mg PO DAILY 08/24/20 [History] Pioglitazone [Actos] 30 mg PO DAILY 08/24/20 [History] Polyethylene Glycol 3350 [Miralax] 17 gm PO DAILY PRN 08/24/20 [History] Sennosides-Docusate Sodium [Senokot-S] 1 tab PO BID 08/24/20 [History] Triamcinolone 0.025% Cream [Kenalog 0.025% Cream] 1 applic TOPICAL DAILY PRN 08/24/20 [History] cloNIDine HCL [Catapres] 0.1 mg PO TID 08/24/20 [History] hydrALAZINE HCL 50 mg PO Q12H 08/24/20 [History] Aspirin 81 mg PO DAILY chew 08/29/20 [Rx] Atorvastatin [Lipitor] 40 mg PO HS #30 tab 08/29/20 [Rx] Furosemide [Lasix] 40 mg PO BID #60 tablet 08/29/20 [Rx] Losartan [Cozaar] 50 mg PO DAILY #30 tab 08/29/20 [Rx] Metoprolol Tartrate [Lopressor] 50 mg PO BID #60 tab 08/29/20 [Rx] Follow up Appointment(s)/Referral(s): [facility] [Provider Group] - 1 Week (office will call you with follow up appointment date and time) [facility]-2 days Ambulatory/Diagnostic Orders: Comprehensive Metabolic Panel [LAB.AMB] Location: None Selected Patient Instructions/Handouts: Heart Failure (DC) Discharge Disposition: HOME SELF-CARE
--- NOTE | 2020-08-29 10:56 | P.PN ---
Subjective Patient is seen in follow-up for acute kidney injury and chronic kidney disease. Renal function better. She is maintained on IV Lasix. Edema improving. Nonoliguric. Currently on 2 L nasal cannula. No chest pain or shortness of breath. Oral intake fair. Vital signs are stable. General: The patient appeared well nourished and normally developed. HEENT: Head exam is unremarkable. Neck is without jugular venous distension. LUNGS: Breath sounds decreased. HEART: Rate and Rhythm are regular. ABDOMEN: Soft, nontender. EXTREMITITES: 1+ edema. Worse on the right. Objective - Vital Signs Vital signs: Vital Signs Temp 98.2 F 08/29/20 08:00 Pulse 88 08/29/20 08:00 Resp 20 08/29/20 08:00 BP 143/81 08/29/20 08:00 Pulse Ox 95 08/29/20 08:00 Intake & Output 08/28/20 08/29/20 08/29/20 18:59 06:59 18:59 Intake Total 620 120 540 Output Total 1600 800 500 Balance -980 -680 40 Weight 122.5 kg Intake: Oral 620 120 540 Output: Urine 1600 800 500 Straight 1600 500 Other: Voiding Method Indwelling Catheter Indwelling Catheter # Bowel Movements 1 - Labs CBC & Chem 7: 08/27/20 05:42 08/29/20 07:22 Labs: Abnormal Lab Results - Last 24 Hours (Table) 08/28/20 08/28/20 08/28/20 Range/Units 12:14 17:28 20:13 Carbon Dioxide (22-30) mmol/L BUN (7-17) mg/dL Creatinine (0.52-1.04) mg/dL Glucose (74-99) mg/dL POC Glucose (mg/dL) 165 H 210 H 198 H (75-99) mg/dL Magnesium (1.6-2.3) mg/dL 08/29/20 08/29/20 Range/Units 06:11 07:22 Carbon Dioxide 38 H (22-30) mmol/L BUN 52 H (7-17) mg/dL Creatinine 1.93 H (0.52-1.04) mg/dL Glucose 129 H (74-99) mg/dL POC Glucose (mg/dL) 170 H (75-99) mg/dL Magnesium 2.5 H (1.6-2.3) mg/dL Assessment and Plan Plan: Assessment: 1. Acute kidney injury mostly prerenal secondary to cardiorenal syndrome. Renal function better. Creatinine 1.93 today. 2. Acute on chronic diastolic CHF. 3. Volume overload. Improving with diuresis. 4. Chronic kidney disease stage IIIa with baseline creatinine in the range of 1-1.4 in 2018. Etiology is diabetic kidney disease. 5. Diabetes mellitus. 6. Hypertension with chronic kidney disease. Controlled. Plan: Stop IV Lasix. Add Demadex 20 mg once daily. 1500 mL fluid restriction and renal diet. Avoid nephrotoxins. Continue to monitor renal function and urine output. Patient was advised to follow-up patient in 1-2 weeks upon discharge. She is advised to monitor her weight closely at home and to call if gains more than 3 pounds in 1 week duration.
[2020-08-29 11:44] LABS: Glucose,Whole Blood 180 mg/dL (75-99)
[2020-08-29 12:02] VITALS: BP 144/83; PULSE 85; TEMP 98.5
--- NOTE | 2020-08-29 12:37 | P.PN ---
Subjective Progress Note Date: 08/29/20 Principal diagnosis: Pleural effusion 60-year-old female who presented to the emergency department on 08/23/2020, at 2232. Her major complaint when presenting to the emergency department was that of shortness of breath. The patient apparently also complained of swelling in her lower extremities, right greater than left. She was apparently recently at [facility] from to , for similar episode. She apparently was discharged after being told she had asthma and COPD, with albuterol, Singulair, antibiotics, and steroids. She was also suspected to have mastitis on the left. She apparently was given IV fluids and steroids at [facility], which apparently caused her to have pain and swelling to her legs. I was asked to see her after she's been here in the hospital for a couple of days, because of the potential left-sided pleural effusion. The patient's on a couple of liters of O2 and states that her breathing is much improved. Her chest x-ray shows what appears to be relatively smaller left- sided pleural effusion. A Doppler of the posterior left chest will be ordered. She denies any fever or chills. She denies any cough or phlegm production. She states that her breathing is much improved. She apparently carries with her diagnosis of COPD from previous tobacco use, diabetes mellitus, gastroesophageal reflux disease, hyperlipidemia, essential hypertension, and arthritis. Progress note dated 08/28/2020. This is a 60-year-old black female, who presented to the emergency department on August 23, complaining of shortness of breath. She also had significant swelling in her lower extremities, right greater than left. She was inpatient, at [facility] from August 06 to August 09, for similar episode. She apparently was discharged after being told she had asthma and COPD, and she was sent home with albuterol, Singulair, antibiotics and steroids. We were consulted primarily for the left sided pleural effusion. The ultrasound of the chest showed a small to medium sized effusion, and because of the patient's body habitus, thoracentesis at this time will not be done. The patient does have a history of COPD from prior tobacco use, diabetes mellitus, gastroesophageal reflux disease, hyperlipidemia, essential hypertension, and arthritis. She is not demonstrating any respiratory distress, and her saturations are mid to high 90s on 2 L of oxygen. The patient is seen today 08/29/2020 in follow-up on the selective care unit. She is currently sitting up in a chair at the bedside. Awake and alert in no acute distress. Maintaining O2 saturations in the mid 90s on 2 L/m per nasal cannula. Afebrile. Hemodynamically stable. Sodium 144. Potassium 5.0. Creatinine 1.93. Remains on IV diuretics. Objective - Vital Signs Vital signs: Vital Signs Temp 98.5 F 08/29/20 12:00 Pulse 85 08/29/20 12:00 Resp 20 08/29/20 12:00 BP 144/83 08/29/20 12:00 Pulse Ox 95 08/29/20 12:00 Intake & Output 08/28/20 08/29/20 08/29/20 18:59 06:59 18:59 Intake Total 620 120 540 Output Total 5285 112 2817 Balance -980 -680 -1260 Weight 122.5 kg Intake: Oral 620 120 540 Output: Urine 6777 120 2183 Straight 1600 500 Other: Voiding Method Indwelling Catheter Indwelling Catheter # Voids 1 # Bowel Movements 1 - Exam Alert, pleasant 60-year-old female. No acute distress, oriented 3. Nasal O2 2 L noted. No conversational dyspnea, audible wheezing, or use of accessory muscles. HEENT examination is grossly unremarkable. Mucous membranes are moist. No oral lesions. Neck supple. Full range of motion. No adenopathy thyromegaly or neck vein distention. Cardiovascular examination reveals regular rhythm rate. S1-S2 normal. No S3 or S4. No discernible murmur noted. Heart rate is 78 bpm. Lungs reveal mostly clear breath sounds. A few crackles at the bases are noted, left greater than right. No rhonchi or wheezes. Abdomen obese but soft. Bowel sounds are noted. Extremities are intact. No cyanosis or clubbing. Bilateral lower extremity edema noted, right greater than left. Skin is without rash or lesion. Neurologic examination is brief but nonfocal. - Labs CBC & Chem 7: 08/27/20 05:42 08/29/20 07:22 Labs: Abnormal Lab Results - Last 24 Hours (Table) 08/28/20 08/28/20 08/29/20 Range/Units 17:28 20:13 06:11 Carbon Dioxide (22-30) mmol/L BUN (7-17) mg/dL Creatinine (0.52-1.04) mg/dL Glucose (74-99) mg/dL POC Glucose (mg/dL) 210 H 198 H 170 H (75-99) mg/dL Magnesium (1.6-2.3) mg/dL 08/29/20 08/29/20 Range/Units 07:22 11:41 Carbon Dioxide 38 H (22-30) mmol/L BUN 52 H (7-17) mg/dL Creatinine 1.93 H (0.52-1.04) mg/dL Glucose 129 H (74-99) mg/dL POC Glucose (mg/dL) 180 H (75-99) mg/dL Magnesium 2.5 H (1.6-2.3) mg/dL Assessment and Plan Assessment: 1 Acute exacerbation of diastolic CHF and left-sided pleural effusion. COPD d oes not appear to be particularly active at this time. 2 Small to moderate left-sided effusion, measuring 7.6 cm. 3 Apparent history of COPD, from previous tobacco use. 4 Chronic hypoxemic and hypercapnic respiratory failure. 5 Obesity. 6 History of diabetes mellitus. 7 History of hyperlipidemia. 8 History of hypertension. 9 History of gastroesophageal reflux disease. 10 Chronic kidney disease. 11 Rule out Pickwickian syndrome, and obstructive sleep apnea syndrome. Plan: The patient was seen and evaluated by Dr. Dexter She is stable for discharge from the pulmonary standpoint She would benefit from a full pulmonary workup including PFTs, 6 minute walk She would also benefit from a sleep study Follow-up in the office in 1-2 weeks' time I, the cosigning physician, performed a history & physical examination of the patient. Lungs sounds with few crackles in the posterior bases left greater than right. Maintaining good O2 saturations in the 90s on 2 L/m per nasal cannula. I discussed the assessment and plan of care with my nurse practitioner, Delmy Harrington. I attest to the above note as dictated by her.
[2020-08-30] MEDS ORDERED: TORSEMIDE 20 MG TAB PO SCH (09:00)
== END 2020-08-29 13:59 | disposition home or self-care (01) | DRG 291 ==
LOC: EC 22:32 → 3SCARD 08-24 02:02
PROVIDERS: ADMIT Internal Medicine; ATTEND Internal Medicine
PROC: 5A09357 Assistance with Respiratory Ventilation, Less than 24 Consecutive Hours, Continuous Positive Airway Pressure (ICD-10-PCS; principal; 2020-08-26)
DX: I13.0 Hypertensive heart and chronic kidney disease with heart failure and stage 1 through stage 4 chronic kidney disease, or unspecified chronic kidney disease (principal); G92 Toxic encephalopathy; I50.33 Acute on chronic diastolic (congestive) heart failure; J96.21 Acute and chronic respiratory failure with hypoxia; J96.22 Acute and chronic respiratory failure with hypercapnia; N17.9 Acute kidney failure, unspecified; E87.2 Acidosis; L03.90 Cellulitis, unspecified; E11.22 Type 2 diabetes mellitus with diabetic chronic kidney disease; E11.40 Type 2 diabetes mellitus with diabetic neuropathy, unspecified; J44.9 Chronic obstructive pulmonary disease, unspecified; Z90.710 Acquired absence of both cervix and uterus; E78.5 Hyperlipidemia, unspecified; Z20.828 Contact with and (suspected) exposure to other viral communicable diseases; N18.31 Chronic kidney disease, stage 3a; Z79.4 Long term (current) use of insulin; E66.9 Obesity, unspecified; F17.200 Nicotine dependence, unspecified, uncomplicated; G25.3 Myoclonus; G47.33 Obstructive sleep apnea (adult) (pediatric); K21.9 Gastro-esophageal reflux disease without esophagitis; M15.9 Polyosteoarthritis, unspecified; N61.0 Mastitis without abscess; T50.905A Adverse effect of unspecified drugs, medicaments and biological substances, initial encounter; Z68.39 Body mass index [BMI] 39.0-39.9, adult; Z79.899 Other long term (current) drug therapy; Z82.5 Family history of asthma and other chronic lower respiratory diseases; Z83.3 Family history of diabetes mellitus
CPT/HCPCS: 36415; 36600; 70450; 71045; 71046; 76604; 78582; 80048; 80053; 82140; 82570; 82805; 83036; 83605; 83735; 83880; 84145; 84156; 84484; 85025; 85379; 85610; 85652; 85730; 86140; 87635; 93005; 93306; 94640; 94660

== ENCOUNTER → 2020-10-12 | Outpatient (CLI) | payer OTHER ==
[2020-10-12 15:22] VITALS: BP 187/95; PULSE 99; RESP 18; TEMP 98.7
--- NOTE | 2020-10-12 15:55 | P.GSHP ---
History of Present Illness H&P Date: 10/12/20 Chief Complaint: swelling of her left breast Laury is a 60-year-old -German female who presents in consultation for Grace Lemons regarding swelling of her left breast. This started in June of 2020. She dd not have any trauma of this area. She was seen in the ER in July and was told she had a "breast" disease. She was on antibiotics and steriods. She is not complaining of any pain in her breasts. She took antibiotics for 4 days she is uncertain as to whether antibiotics they were. She had no resolution of the swelling of her breasts. She is not complaining of any nipple discharge. Her last mammogram was approximately 1 year ago, she states at that time she was told everything was okay. Caffeine: 3-4 cups/day nicotine: 3-4 cigarettes per day Chocolate: occasional Family History: none Hormonal History: menarche: 12 , breast fed: yes, age at first : 15 menopause: 49 BCP: 10 years hormones: none Surgical history: back surgery knee and shoulder surgery Medical history: HTN DM cant walk right leg heavy Social History: nicotine: 3-4 cigarettes per day Alcohol: Wine occasionally Drugs: Marijuana monthly - Constitutional Constitutional: Denies chills, Denies fever - EENT Eyes: denies blurred vision, denies pain Ears: bilateral: tinnitus, deny: decreased hearing Ears, nose, mouth and throat: Denies headache, Denies sore throat - Breasts Breasts: bilateral: as per HPI - Cardiovascular Cardiovascular: Reports shortness of breath, Denies chest pain - Respiratory Respiratory: Denies cough, Denies 7 - Gastrointestinal Gastrointestinal: Denies abdominal pain, Denies diarrhea, Denies nausea, Denies vomiting - Genitourinary (Female) Genitourinary: Denies dysuria, Denies hematuria - Menstruation Menstruation: Reports postmenopausal - Musculoskeletal Comment: lower extremities very weak - Integumentary Comment: pruritis right leg/rash right leg left breast swollen Integumentary: Denies pruritus, Denies rash - Neurological Neurological: Denies numbness, Denies weakness - Psychiatric Psychiatric: Reports depression, Denies anxiety - Endocrine Endocrine: Denies fatigue, Denies weight change - Hematologic/Lymphatic Comment: none - Allergic/Immunologic Allergic/Immunologic: Reports as per HPI Past Medical History Past Medical History: COPD, Diabetes Mellitus, Eye Disorder, GERD/Reflux, Hyperlipidemia, Hypertension, Osteoarthritis (OA) Additional Past Medical History / Comment(s): spondolysis, , blurry vision & eye problems ?related to diabetes History of Any Multi-Drug Resistant Organisms: None Reported Past Surgical History: Back Surgery, Hysterectomy, Orthopedic Surgery Additional Past Surgical History / Comment(s): RT shoulder surgery, LT arthroscopy knee. COLONOSCOPY. BACK SX X 2 Past Anesthesia/Blood Transfusion Reactions: No Reported Reaction Past Psychological History: No Psychological Hx Reported Smoking Status: Former smoker Past Alcohol Use History: Rare Additional Past Alcohol Use History / Comment(s): pt. smokes 2 cigs/week, has smoked since age of 12 Past Drug Use History: None Reported - Past Family History Mother Family Medical History: No Reported History Medications and Allergies Home Medications Medication Instructions Recorded Confirmed Type HYDROcodone/APAP 10-325MG [Pavo 1 tab PO Q6HR PRN 05/21/15 10/12/20 History 10-325] Cephalexin [Keflex] 500 mg PO Q6HR #40 cap 08/20/20 10/12/20 Rx Albuterol Sulfate [Proair Hfa] 1 - 2 puff INHALATION RT-Q6H PRN 08/24/20 10/12/20 History Baclofen 10 mg PO BID 08/24/20 10/12/20 History Ergocalciferol [Vitamin D2 (1250 1,250 mcg PO Q7D 08/24/20 10/12/20 History Mcg = 81108 Iu)] Fenofibrate 160 mg PO DAILY 08/24/20 10/12/20 History INSULIN LISPRO (humaLOG) [humaLOG] See Protocol SQ AC-TID 08/24/20 10/12/20 History Insulin Glargine [Lantus] See Protocol SQ HS 08/24/20 10/12/20 History Loratadine [Claritin] 10 mg PO DAILY 08/24/20 10/12/20 History Montelukast [Singulair] 10 mg PO HS 08/24/20 10/12/20 History Nortriptyline [Pamelor] 25 mg PO DAILY 08/24/20 10/12/20 History Pioglitazone [Actos] 30 mg PO DAILY 08/24/20 10/12/20 History Polyethylene Glycol 3350 [Miralax] 17 gm PO DAILY PRN 08/24/20 10/12/20 History Sennosides-Docusate Sodium 1 tab PO BID 08/24/20 10/12/20 History [Senokot-S] Triamcinolone 0.025% Cream 1 applic TOPICAL DAILY PRN 08/24/20 10/12/20 History [Kenalog 0.025% Cream] cloNIDine HCL [Catapres] 0.1 mg PO TID 08/24/20 10/12/20 History hydrALAZINE HCL 50 mg PO Q12H 08/24/20 10/12/20 History Aspirin 81 mg PO DAILY chew 08/29/20 10/12/20 Rx Atorvastatin [Lipitor] 40 mg PO HS #30 tab 08/29/20 10/12/20 Rx Furosemide [Lasix] 40 mg PO BID #60 tablet 08/29/20 10/12/20 Rx Losartan [Cozaar] 50 mg PO DAILY #30 tab 08/29/20 10/12/20 Rx Metoprolol Tartrate [Lopressor] 50 mg PO BID #60 tab 08/29/20 10/12/20 Rx Allergies Allergy/AdvReac Type Severity Reaction Status Date / Time amoxicillin [Amoxicillin] Allergy Rash/Hives Verified 10/12/20 15:10 latanoprost AdvReac blurry Verified 10/12/20 15:10 vision prednisolone AdvReac Swelling Verified 10/12/20 15:10 steroids AdvReac affected Uncoded 10/12/20 15:10 eyes Surgical - Exam Vital Signs Temp Pulse Resp BP Pulse Ox 98.7 F 99 18 187/95 97 10/12/20 15:15 10/12/20 15:15 10/12/20 15:15 10/12/20 15:15 10/12/20 15:15 BMI 39.2 - General no distress - Eyes normal ocular movement - ENT normal pinna, normal nares - Neck no masses, trachea midline - Respiratory normal expansion, normal respiratory effort, clear to auscultation - Cardiovascular Rhythm: regular Heart Sounds: normal: S1, S2 - Abdomen Abdomen: soft - Integumentary swelling of the left breast with induration - Musculoskeletal in a wheel chair - Psychiatric oriented to time, oriented to person, oriented to place, speech is normal, memory intact Breast examination: Block: 48 double D Inspection: Left breast swollen and larger than right breast skin appears to be thickened Grade 3 ptosis bilaterally Palpation: Right breast: Multi-positional exam fibrocystic changes, ptotic breast Right axilla: No adenopathy of concern Left breast: Approximately 1-1/2 times as large as the right breast, thickened indurated skin throughout with increased fullness in the lateral aspect of the breast no discrete palpable masses noted Left axilla: No adenopathy of concern Results ultrasound reviewed with DR. Ferreira Assessment and Plan Assessment: Impression: HTN DM cant walk right leg heavy Swollen left breast/induration fullness lateral aspect COPD Plan: 1. Bilateral breast mammogram/concern for inflammatory breast cancer 2. Consider bilateral breast MRI 3. Punch biopsy of the skin 4. Follow up after radiographic evaluation is done 5. We'll hold on antibiotics at this time but will consider consult with ID CC: Grace Lemons
== END ==
LOC: WWCWWP 14:24
PROVIDERS: ATTEND Surgery
DX: N63.20 Unspecified lump in the left breast, unspecified quadrant (principal); J44.9 Chronic obstructive pulmonary disease, unspecified; I10 Essential (primary) hypertension; E11.9 Type 2 diabetes mellitus without complications; F17.210 Nicotine dependence, cigarettes, uncomplicated; M19.90 Unspecified osteoarthritis, unspecified site; E78.5 Hyperlipidemia, unspecified; Z79.4 Long term (current) use of insulin

== ENCOUNTER 2020-10-16 15:52 | Inpatient (IN) | payer OTHER ==
[2020-10-16 16:26] LABS: Glucose,Whole Blood 134 mg/dL (75-99)
--- NOTE | 2020-10-16 16:31 | ED ---
Altered Mental Status HPI - General Chief Complaint: Altered Mental Status Stated Complaint: altered LOC, weakness Time Seen by Provider: 10/16/20 16:00 Source: patient, EMS Mode of arrival: EMS Limitations: language barrier - History of Present Illness Initial Comments: Patient is a 60-year-old female with past mental history of COPD, diabetes, heart failure presents emergency room with altered mental status. Family reports the patient has had worsening shortness of breath, poor appetite and weakness over the past couple of days. The patient cannot provide any history. I did review her chart and patient was hospitalized in August for a similar episode. She was diagnosed with congestive heart failure. She had similar presentation with tremors and altered mental status which they treated to hypoxia and hypercarbia. Patient presents today with a pulse ox of 84%. Remainder of the HPI is limited - Related Data Home Medications Medication Instructions Recorded Confirmed HYDROcodone/APAP 10-325MG [Hiram 1 tab PO Q6HR PRN 05/21/15 10/16/20 10-325] Albuterol Sulfate [Proair Hfa] 1 - 2 puff INHALATION RT-Q6H PRN 08/24/20 10/16/20 Baclofen 10 mg PO BID 08/24/20 10/16/20 Ergocalciferol [Vitamin D2 (1250 1,250 mcg PO MO 08/24/20 10/16/20 Mcg = 06000 Iu)] Fenofibrate 160 mg PO DAILY 08/24/20 10/16/20 INSULIN LISPRO (humaLOG) [humaLOG] See Protocol SQ AC-TID 08/24/20 10/16/20 Insulin Glargine [Lantus] See Protocol SQ HS 08/24/20 10/16/20 Loratadine [Claritin] 10 mg PO DAILY 08/24/20 10/16/20 Montelukast [Singulair] 10 mg PO HS 08/24/20 10/16/20 Nortriptyline [Pamelor] 25 mg PO DAILY 08/24/20 10/16/20 Pioglitazone [Actos] 30 mg PO DAILY 08/24/20 10/16/20 Polyethylene Glycol 3350 [Miralax] 17 gm PO DAILY PRN 08/24/20 10/16/20 Sennosides-Docusate Sodium 1 tab PO BID 08/24/20 10/16/20 [Senokot-S] Triamcinolone 0.025% Cream 1 applic TOPICAL DAILY PRN 08/24/20 10/16/20 [Kenalog 0.025% Cream] cloNIDine HCL [Catapres] 0.1 mg PO TID 08/24/20 10/16/20 hydrALAZINE HCL 50 mg PO Q12H 08/24/20 10/16/20 Previous Rx's Medication Instructions Recorded Aspirin 81 mg PO DAILY chew 08/29/20 Atorvastatin [Lipitor] 40 mg PO HS #30 tab 08/29/20 Furosemide [Lasix] 40 mg PO BID #60 tablet 08/29/20 Losartan [Cozaar] 50 mg PO DAILY #30 tab 08/29/20 Metoprolol Tartrate [Lopressor] 50 mg PO BID #60 tab 08/29/20 Allergies Allergy/AdvReac Type Severity Reaction Status Date / Time amoxicillin [Amoxicillin] Allergy Rash/Hives Verified 10/16/20 17:19 latanoprost AdvReac blurry Verified 10/16/20 17:19 vision prednisolone AdvReac Swelling Verified 10/16/20 17:19 steroids AdvReac affected Uncoded 10/12/20 15:10 eyes Review of Systems ROS Statement: Those systems with pertinent positive or pertinent negative responses have been documented in the HPI. ROS Other: All systems not noted in ROS Statement are negative. Past Medical History Past Medical History: COPD, Diabetes Mellitus, Eye Disorder, GERD/Reflux, Hyperlipidemia, Hypertension, Osteoarthritis (OA) Additional Past Medical History / Comment(s): spondolysis, , blurry vision & eye problems ?related to diabetes History of Any Multi-Drug Resistant Organisms: None Reported Past Surgical History: Back Surgery, Hysterectomy, Orthopedic Surgery Additional Past Surgical History / Comment(s): RT shoulder surgery, LT arthroscopy knee. COLONOSCOPY. BACK SX X 2 Past Anesthesia/Blood Transfusion Reactions: No Reported Reaction Past Psychological History: No Psychological Hx Reported Smoking Status: Former smoker Past Alcohol Use History: Rare Past Drug Use History: None Reported - Past Family History Mother Family Medical History: No Reported History General Exam Limitations: altered mental status General appearance: lethargic Head exam: Present: atraumatic, normocephalic, normal inspection Eye exam: Present: normal appearance, PERRL, EOMI. Absent: scleral icterus, conjunctival injection, periorbital swelling ENT exam: Present: mucous membranes dry Respiratory exam: Present: rales, decreased breath sounds Cardiovascular Exam: Present: regular rate, normal rhythm, normal heart sounds. Absent: systolic murmur, diastolic murmur, rubs, gallop, clicks GI/Abdominal exam: Present: soft, normal bowel sounds. Absent: distended, tenderness, guarding, rebound, rigid Neurological exam: Present: altered Course Vital Signs 10/16/20 10/16/20 10/16/20 15:56 16:02 16:48 Temperature 97.6 F Pulse Rate 79 81 Respiratory 18 18 18 Rate Blood Pressure 152/104 192/165 O2 Sat by Pulse 96 99 Oximetry 10/16/20 10/16/20 10/16/20 17:00 18:00 18:17 Temperature Pulse Rate 76 80 76 Respiratory 18 16 18 Rate Blood Pressure 145/81 175/99 155/94 O2 Sat by Pulse 100 100 98 Oximetry 10/16/20 10/16/20 10/16/20 18:27 18:48 19:00 Temperature Pulse Rate 79 82 78 Respiratory 24 23 18 Rate Blood Pressure 155/94 O2 Sat by Pulse 100 Oximetry 10/16/20 10/16/20 10/16/20 20:00 21:00 22:00 Temperature Pulse Rate 78 82 77 Respiratory 16 17 10 L Rate Blood Pressure 150/93 145/95 150/98 O2 Sat by Pulse 100 100 100 Oximetry 10/16/20 22:34 Temperature 98.0 F Pulse Rate 81 Respiratory 18 Rate Blood Pressure 146/88 O2 Sat by Pulse 99 Oximetry - Reevaluation(s) Reevaluation #1: Spoke with Dr. Burton 10/16/20 1655 Reevaluation #2: Spoke with Dr. Toledo - agrees with 60 mg lasix 10/16/20 19:03 Reevaluation #3: Admission changed to Dr. Palafox - incorrectly admitted to Dr. Narvaez 10/16/20 20:32 Medical Decision Making - Medical Decision Making Upon arrival patient was placed into room 27. A thorough history and physical exam was performed. I did review the patient's chart that stated that she previously had encephalopathy secondary to hypoxia and hypercarbia. Because of this I did draw VBG and patient is placed on BiPAP. Patient is placed on contin uous pulse ox and cardiac monitoring. 12-lead EKG was performed. Laboratory studies were conducted. Laboratory studies are reviewed and demonstrates a d- dimer of 9.7. CO2 70. Bicarb 30. Potassium 7.2. Creatinine 3.5. AST 6442. ALT 2889. CK of 476. Troponin 2.1. Chest x-ray demonstrates mild to moderate CHF with bibasilar opacities and probable trace left pleural effusion. CT of the brain demonstrates no acute intracranial abnormality. Patient does have a Hyatt placed. She has output of 50 mL of urine however does not produce any urine after this. The patient is given calcium chloride, sodium bicarb, insulin, dextrose and Kayexalate for her hyperkalemia. Patient remains on BiPAP and is oxygenating 100%. She does remain arousable. I did originally speak with Dr. narvaez for admission however this is unchanged to Dr. Palafox. I also spoke with Dr. Aguilar and Dr. Toledo. Dr. Aguilar and Dr. Toledo recommend 60 mg of Lasix. This is administered to the patient and she does began having some urine output after approximately 2 hours. Ultrasound of the liver and bladder are performed which demonstrates small free fluid seen adjacent to the liver and in the left upper quadrant. Because of this a CT of the patient's abdomen and pelvis is ordered. Patient is pending a bed on the ICU floor. Family was updated. Patient remains in critical condition with a guarded prognosis - Lab Data Result diagrams: 10/17/20 03:18 10/17/20 18:30 Lab Results 10/16/20 10/16/20 10/16/20 Range/Units 16:15 16:23 16:23 WBC 7.6 (3.8-10.6) k/uL RBC 5.33 (3.80-5.40) m/uL Hgb 12.1 (11.4-16.0) gm/dL Hct 44.0 (34.0-46.0) % MCV 82.6 D (80.0-100.0) fL MCH 22.7 L (25.0-35.0) pg MCHC 27.5 L (31.0-37.0) g/dL RDW 17.8 H (11.5-15.5) % Plt Count 130 L D (150-450) k/uL MPV 9.9 Neutrophils % (Manual) 93 % Lymphocytes % (Manual) 3 % Monocytes % (Manual) 4 % Basophils % (Manual) 1 % Neutrophils # (Manual) 7.07 (1.3-7.7) k/uL Lymphocytes # (Manual) 0.23 L (1.0-4.8) k/uL Monocytes # (Manual) 0.30 (0-1.0) k/uL Basophils # (Manual) 0.08 (0-0.2) k/uL Nucleated RBCs 2 H (0-0) /100 WBC Manual Slide Review Performed Polychromasia Present Hypochromasia Marked Poikilocytosis Moderate Anisocytosis Slight Target Cells Present PT 13.4 H (9.0-12.0) sec INR 1.3 H (<1.2) APTT 21.2 L (22.0-30.0) sec D-Dimer (<0.60) mg/L FEU VBG pH (7.31-7.41) VBG pCO2 (37-51) mmHg VBG HCO3 (24-28) mmol/L Sodium (137-145) mmol/L Potassium (3.5-5.1) mmol/L Chloride (98-107) mmol/L Carbon Dioxide (22-30) mmol/L Anion Gap mmol/L BUN (7-17) mg/dL Creatinine (0.52-1.04) mg/dL Est GFR (CKD-EPI)AfAm (>60 ml/min/1.73 sqM) Est GFR (CKD-EPI)NonAf (>60 ml/min/1.73 sqM) Glucose (74-99) mg/dL POC Glucose (mg/dL) 134 H (75-99) mg/dL POC Glu Meters Superintendent ID Paty, Kia Plasma Lactic Acid Loco (0.7-2.0) mmol/L Calcium (8.4-10.2) mg/dL Total Bilirubin (0.2-1.3) mg/dL AST (14-36) U/L ALT (4-34) U/L Alkaline Phosphatase (38-126) U/L Ammonia (<30) umol/L Creatine Kinase (30-135) U/L Troponin I (0.000-0.034) ng/mL Total Protein (6.3-8.2) g/dL Albumin (3.5-5.0) g/dL TSH (0.465-4.680) mIU/L Urine Color Urine Appearance (Clear) Urine pH (5.0-8.0) Ur Specific [place] (1.001-1.035) Urine Protein (Negative) Urine Glucose (UA) (Negative) Urine Ketones (Negative) Urine Blood (Negative) Urine Nitrite (Negative) Urine Bilirubin (Negative) Urine Urobilinogen (<2.0) mg/dL Ur Leukocyte Esterase (Negative) Urine RBC (0-5) /hpf Urine WBC (0-5) /hpf Ur Squamous Epith Cells (0-4) /hpf Amorphous Sediment (None) /hpf Urine Bacteria (None) /hpf Hyaline Casts (0-2) /lpf Urine Mucus (None) /hpf Urine Opiates Screen (NotDetected) Ur Oxycodone Screen (NotDetected) Urine Methadone Screen (NotDetected) Ur Propoxyphene Screen (NotDetected) Ur Barbiturates Screen (NotDetected) U Tricyclic Antidepress (NotDetected) Ur Phencyclidine Scrn (NotDetected) Ur Amphetamines Screen (NotDetected) U Methamphetamines Scrn (NotDetected) U Benzodiazepines Scrn (NotDetected) Urine Cocaine Screen (NotDetected) U Marijuana (THC) Screen (NotDetected) Influenza Type A (PCR) (Not Detectd) Influenza Type B (PCR) (Not Detectd) RSV (PCR) (Not Detectd) SARS-CoV-2 (PCR) (Not Detectd) 10/16/20 10/16/20 10/16/20 Range/Units 16:23 16:23 16:23 WBC (3.8-10.6) k/uL RBC (3.80-5.40) m/uL Hgb (11.4-16.0) gm/dL Hct (34.0-46.0) % MCV (80.0-100.0) fL MCH (25.0-35.0) pg MCHC (31.0-37.0) g/dL RDW (11.5-15.5) % Plt Count (150-450) k/uL MPV Neutrophils % (Manual) % Lymphocytes % (Manual) % Monocytes % (Manual) % Basophils % (Manual) % Neutrophils # (Manual) (1.3-7.7) k/uL Lymphocytes # (Manual) (1.0-4.8) k/uL Monocytes # (Manual) (0-1.0) k/uL Basophils # (Manual) (0-0.2) k/uL Nucleated RBCs (0-0) /100 WBC Manual Slide Review Polychromasia Hypochromasia Poikilocytosis Anisocytosis Target Cells PT (9.0-12.0) sec INR (<1.2) APTT (22.0-30.0) sec D-Dimer (<0.60) mg/L FEU VBG pH (7.31-7.41) VBG pCO2 (37-51) mmHg VBG HCO3 (24-28) mmol/L Sodium 145 (137-145) mmol/L Potassium 7.2 H* (3.5-5.1) mmol/L Chloride 106 (98-107) mmol/L Carbon Dioxide 30 (22-30) mmol/L Anion Gap 9 mmol/L BUN 71 H (7-17) mg/dL Creatinine 3.56 H (0.52-1.04) mg/dL Est GFR (CKD-EPI)AfAm 15 (>60 ml/min/1.73 sqM) Est GFR (CKD-EPI)NonAf 13 (>60 ml/min/1.73 sqM) Glucose 135 H (74-99) mg/dL POC Glucose (mg/dL) (75-99) mg/dL POC Glu Meters Superintendent ID Plasma Lactic Acid Loco 1.7 (0.7-2.0) mmol/L Calcium 8.6 (8.4-10.2) mg/dL Total Bilirubin 0.9 (0.2-1.3) mg/dL AST 6442 H (14-36) U/L ALT 2889 H (4-34) U/L Alkaline Phosphatase 61 (38-126) U/L Ammonia 14 (<30) umol/L Creatine Kinase 476 H (30-135) U/L Troponin I (0.000-0.034) ng/mL Total Protein 6.4 (6.3-8.2) g/dL Albumin 3.5 (3.5-5.0) g/dL TSH 1.650 (0.465-4.680) mIU/L Urine Color Yellow Urine Appearance Cloudy H (Clear) Urine pH 5.5 (5.0-8.0) Ur Specific [place] 1.018 (1.001-1.035) Urine Protein 3+ H (Negative) Urine Glucose (UA) Negative (Negative) Urine Ketones Negative (Negative) Urine Blood Negative (Negative) Urine Nitrite Negative (Negative) Urine Bilirubin Negative (Negative) Urine Urobilinogen <2.0 (<2.0) mg/dL Ur Leukocyte Esterase Negative (Negative) Urine RBC 1 (0-5) /hpf Urine WBC 1 (0-5) /hpf Ur Squamous Epith Cells 1 (0-4) /hpf Amorphous Sediment Rare H (None) /hpf Urine Bacteria Rare H (None) /hpf Hyaline Casts 7 H (0-2) /lpf Urine Mucus Rare H (None) /hpf Urine Opiates Screen (NotDetected) Ur Oxycodone Screen (NotDetected) Urine Methadone Screen (NotDetected) Ur Propoxyphene Screen (NotDetected) Ur Barbiturates Screen (NotDetected) U Tricyclic Antidepress (NotDetected) Ur Phencyclidine Scrn (NotDetected) Ur Amphetamines Screen (NotDetected) U Methamphetamines Scrn (NotDetected) U Benzodiazepines Scrn (NotDetected) Urine Cocaine Screen (NotDetected) U Marijuana (THC) Screen (NotDetected) Influenza Type A (PCR) (Not Detectd) Influenza Type B (PCR) (Not Detectd) RSV (PCR) (Not Detectd) SARS-CoV-2 (PCR) (Not Detectd) 10/16/20 10/16/20 10/16/20 Range/Units 16:23 16:23 16:23 WBC (3.8-10.6) k/uL RBC (3.80-5.40) m/uL Hgb (11.4-16.0) gm/dL Hct (34.0-46.0) % MCV (80.0-100.0) fL MCH (25.0-35.0) pg MCHC (31.0-37.0) g/dL RDW (11.5-15.5) % Plt Count (150-450) k/uL MPV Neutrophils % (Manual) % Lymphocytes % (Manual) % Monocytes % (Manual) % Basophils % (Manual) % Neutrophils # (Manual) (1.3-7.7) k/uL Lymphocytes # (Manual) (1.0-4.8) k/uL Monocytes # (Manual) (0-1.0) k/uL Basophils # (Manual) (0-0.2) k/uL Nucleated RBCs (0-0) /100 WBC Manual Slide Review Polychromasia Hypochromasia Poikilocytosis Anisocytosis Target Cells PT (9.0-12.0) sec INR (<1.2) APTT (22.0-30.0) sec D-Dimer (<0.60) mg/L FEU VBG pH 7.24 L (7.31-7.41) VBG pCO2 70 H* (37-51) mmHg VBG HCO3 30 H (24-28) mmol/L Sodium (137-145) mmol/L Potassium (3.5-5.1) mmol/L Chloride (98-107) mmol/L Carbon Dioxide (22-30) mmol/L Anion Gap mmol/L BUN (7-17) mg/dL Creatinine (0.52-1.04) mg/dL Est GFR (CKD-EPI)AfAm (>60 ml/min/1.73 sqM) Est GFR (CKD-EPI)NonAf (>60 ml/min/1.73 sqM) Glucose (74-99) mg/dL POC Glucose (mg/dL) (75-99) mg/dL POC Glu Meters Superintendent ID Plasma Lactic Acid Loco (0.7-2.0) mmol/L Calcium (8.4-10.2) mg/dL Total Bilirubin (0.2-1.3) mg/dL AST (14-36) U/L ALT (4-34) U/L Alkaline Phosphatase (38-126) U/L Ammonia (<30) umol/L Creatine Kinase (30-135) U/L Troponin I 2.160 H* (0.000-0.034) ng/mL Total Protein (6.3-8.2) g/dL Albumin (3.5-5.0) g/dL TSH (0.465-4.680) mIU/L Urine Color Urine Appearance (Clear) Urine pH (5.0-8.0) Ur Specific [place] (1.001-1.035) Urine Protein (Negative) Urine Glucose (UA) (Negative) Urine Ketones (Negative) Urine Blood (Negative) Urine Nitrite (Negative) Urine Bilirubin (Negative) Urine Urobilinogen (<2.0) mg/dL Ur Leukocyte Esterase (Negative) Urine RBC (0-5) /hpf Urine WBC (0-5) /hpf Ur Squamous Epith Cells (0-4) /hpf Amorphous Sediment (None) /hpf Urine Bacteria (None) /hpf Hyaline Casts (0-2) /lpf Urine Mucus (None) /hpf Urine Opiates Screen Not Detected (NotDetected) Ur Oxycodone Screen Not Detected (NotDetected) Urine Methadone Screen Not Detected (NotDetected) Ur Propoxyphene Screen Not Detected (NotDetected) Ur Barbiturates Screen Not Detected (NotDetected) U Tricyclic Antidepress Detected H (NotDetected) Ur Phencyclidine Scrn Not Detected (NotDetected) Ur Amphetamines Screen Not Detected (NotDetected) U Methamphetamines Scrn Not Detected (NotDetected) U Benzodiazepines Scrn Not Detected (NotDetected) Urine Cocaine Screen Not Detected (NotDetected) U Marijuana (THC) Screen Not Detected (NotDetected) Influenza Type A (PCR) (Not Detectd) Influenza Type B (PCR) (Not Detectd) RSV (PCR) (Not Detectd) SARS-CoV-2 (PCR) (Not Detectd) 10/16/20 10/16/20 Range/Units 16:23 18:17 WBC (3.8-10.6) k/uL RBC (3.80-5.40) m/uL Hgb (11.4-16.0) gm/dL Hct (34.0-46.0) % MCV (80.0-100.0) fL MCH (25.0-35.0) pg MCHC (31.0-37.0) g/dL RDW (11.5-15.5) % Plt Count (150-450) k/uL MPV Neutrophils % (Manual) % Lymphocytes % (Manual) % Monocytes % (Manual) % Basophils % (Manual) % Neutrophils # (Manual) (1.3-7.7) k/uL Lymphocytes # (Manual) (1.0-4.8) k/uL Monocytes # (Manual) (0-1.0) k/uL Basophils # (Manual) (0-0.2) k/uL Nucleated RBCs (0-0) /100 WBC Manual Slide Review Polychromasia Hypochromasia Poikilocytosis Anisocytosis Target Cells PT (9.0-12.0) sec INR (<1.2) APTT (22.0-30.0) sec D-Dimer 9.73 H (<0.60) mg/L FEU VBG pH (7.31-7.41) VBG pCO2 (37-51) mmHg VBG HCO3 (24-28) mmol/L Sodium (137-145) mmol/L Potassium (3.5-5.1) mmol/L Chloride (98-107) mmol/L Carbon Dioxide (22-30) mmol/L Anion Gap mmol/L BUN (7-17) mg/dL Creatinine (0.52-1.04) mg/dL Est GFR (CKD-EPI)AfAm (>60 ml/min/1.73 sqM) Est GFR (CKD-EPI)NonAf (>60 ml/min/1.73 sqM) Glucose (74-99) mg/dL POC Glucose (mg/dL) (75-99) mg/dL POC Glu Meters Superintendent ID Plasma Lactic Acid Loco (0.7-2.0) mmol/L Calcium (8.4-10.2) mg/dL Total Bilirubin (0.2-1.3) mg/dL AST (14-36) U/L ALT (4-34) U/L Alkaline Phosphatase (38-126) U/L Ammonia (<30) umol/L Creatine Kinase (30-135) U/L Troponin I (0.000-0.034) ng/mL Total Protein (6.3-8.2) g/dL Albumin (3.5-5.0) g/dL TSH (0.465-4.680) mIU/L Urine Color Urine Appearance (Clear) Urine pH (5.0-8.0) Ur Specific [place] (1.001-1.035) Urine Protein (Negative) Urine Glucose (UA) (Negative) Urine Ketones (Negative) Urine Blood (Negative) Urine Nitrite (Negative) Urine Bilirubin (Negative) Urine Urobilinogen (<2.0) mg/dL Ur Leukocyte Esterase (Negative) Urine RBC (0-5) /hpf Urine WBC (0-5) /hpf Ur Squamous Epith Cells (0-4) /hpf Amorphous Sediment (None) /hpf Urine Bacteria (None) /hpf Hyaline Casts (0-2) /lpf Urine Mucus (None) /hpf Urine Opiates Screen (NotDetected) Ur Oxycodone Screen (NotDetected) Urine Methadone Screen (NotDetected) Ur Propoxyphene Screen (NotDetected) Ur Barbiturates Screen (NotDetected) U Tricyclic Antidepress (NotDetected) Ur Phencyclidine Scrn (NotDetected) Ur Amphetamines Screen (NotDetected) U Methamphetamines Scrn (NotDetected) U Benzodiazepines Scrn (NotDetected) Urine Cocaine Screen (NotDetected) U Marijuana (THC) Screen (NotDetected) Influenza Type A (PCR) Not Detected (Not Detectd) Influenza Type B (PCR) Not Detected (Not Detectd) RSV (PCR) Not Detected (Not Detectd) SARS-CoV-2 (PCR) Not Detected (Not Detectd) - EKG Data EKG Comments: EKG demonstrates a sinus rhythm with a ventricular rate of 77. FL interval 152. QRS 82. QTC 44. No acute ST segment elevation or depressions concerning for ischemic changes Critical Care Time Critical Care Time: Yes Critical Care Time: 55 minutes for bipap initiation, consultation with nephrology, internal medicine and vegetable tester. Multiple re-evaluations and added studies/imaging Disposition Clinical Impression: Encephalopathy, KINSEY (acute kidney injury), COPD (chronic obstructive pulmonary disease), CHF (congestive heart failure), Transaminitis, Hyperkalemia, Hypoxia, Heart failure Disposition: ADMITTED IP TO THIS [facility] Condition: Serious Is patient prescribed a controlled substance at d/c from ED?: No Decision to Admit Reason: Admit from EC Decision Date: 10/16/20 Decision Time: 18:20
[2020-10-16 17:06] LABS: INR 1.3 (<1.2); Prothrombin Time 13.4 sec (9.0-12.0)
[2020-10-16 17:10] LABS: Albumin 3.5 g/dL (3.5-5.0); Calcium 8.6 mg/dL (8.4-10.2); Total Bilirubin 0.9 mg/dL (0.2-1.3); Total Protein 6.4 g/dL (6.3-8.2); VBG PH 7.24 (7.31-7.41)
[2020-10-16 17:12] LABS: Lactic Acid, Venous 1.7 mmol/L (0.7-2.0)
[2020-10-16 17:13] LABS: Amorphous Sediment,Urine Rare /hpf; Anisocytosis Slight; Appearance,Urine Cloudy (Clear); Bacteria,Urine Rare /hpf; Bilirubin,Urine Negative (Negative); Blood,Urine Negative (Negative); Color,Urine Yellow; Glucose,Urine (UA) Negative (Negative); HGB 12.1 gm/dL (11.4-16.0); Hyaline Casts,Urine 7 /lpf (0-2); Hypochromasia Marked; Ketones,Urine Negative (Negative); Leukocyte Esterase,Urine Negative (Negative); MCH 22.7 pg (25.0-35.0); MCHC 27.5 g/dL (31.0-37.0); Mean Platelet Volume 9.9; Mucus,Urine Rare /hpf; Nitrite,Urine Negative (Negative); PH, Urine 5.5 (5.0-8.0); Poikilocytosis Moderate; Protein,Urine 3+ (Negative); RBC 5.33 m/uL (3.80-5.40); RBC,Urine 1 /hpf (0-5); RDW 17.8 % (11.5-15.5); Specific Gravity,Urine 1.018 (1.001-1.035); Squamous Epithelial Cell,Urine 1 /hpf (0-4); Urobilinogen,Urine <2.0 mg/dL (<2.0); WBC,Urine 1 /hpf (0-5)
--- NOTE | 2020-10-16 17:17 | XR ---
EXAMINATION TYPE: XR chest 1V portable DATE OF EXAM: 10/16/2020 COMPARISON: 08/26/2020. HISTORY: Shortness of breath. TECHNIQUE: Single frontal view of the chest is obtained. FINDINGS: There is mild to moderate perihilar and bibasilar hazy opacities. There is probable trace left pleural effusion. No pneumothorax seen. Cardiomegaly. The osseous structures are intact. IMPRESSION: Mild to moderate CHF with bibasilar opacities and probable trace left pleural effusion.
[2020-10-16 17:27] LABS: MCV 82.6 fL (80.0-100.0)
[2020-10-16 17:28] LABS: Platelet Count 130 k/uL (150-450)
[2020-10-16 17:30] LABS: Partial Thromboplastin Time 21.2 sec (22.0-30.0)
[2020-10-16 17:47] LABS: Basophils # (M) 0.08 k/uL (0-0.2); Lymphocytes # (M) 0.23 k/uL (1.0-4.8); Neutrophils # (M) 7.07 k/uL (1.3-7.7); Neutrophils % (M) 93 %; Nucleated Red Blood Cells 2 /100 WBC (0-0); Potassium 7.2 mmol/L (3.5-5.1); Total Cells Counted 200; WBC 7.6 k/uL (3.8-10.6)
[2020-10-16 17:48] LABS: Polychromasia Present; Target Cells Present
[2020-10-16] MEDS ORDERED: ALBUTEROL NEBULIZED 2.5 MG/3 ML INHALATION STA (17:50)
[2020-10-16] MEDS ORDERED: DEXTROSE 50% SYRINGE 50 ML IVP STA (17:51)
[2020-10-16] MEDS ORDERED: SODIUM POLYSTYRENE SULFONATE 30 GM/120 ML BOTTLE RECTAL STA (17:51)
[2020-10-16] MEDS ORDERED: SODIUM BICARB 8.4% 50 ML SYR (1 MEQ/ML) IV STA (17:51)
[2020-10-16] MEDS ORDERED: INSULIN REGULAR 100 UNIT/ML VIAL IV ONE (17:51)
[2020-10-16] MEDS ORDERED: CALCIUM CHLORIDE 100 MG/ML 10 ML SYRINGE IVP STA (18:19)
[2020-10-16] MEDS ORDERED: NALOXONE 0.4 MG/ML 1 ML VIAL IV PRN (18:21)
--- NOTE | 2020-10-16 18:35 | CT ---
EXAM: CT brain wo con CLINICAL HISTORY: Altered mental status. COMPARISON: 08/25/2020. TECHNIQUE: Contiguous axial noncontrast images of the brain were obtained. Coronal and sagittal refor mats were generated and reviewed. Automated dose control was used for this exam. FINDINGS: There is no evidence for intracranial hemorrhage, mass effect or midline shift. The white matter is g rossly preserved. Ventricular size and configuration is within normal limits for degree of parenchymal volume. The paranasal sinuses demonstrate moderate opacification of the left maxillary sinus. The mastoid air cells are clear. No evidence for calvarial fracture. IMPRESSION: No acute intracranial abnormality.
[2020-10-16] MEDS ORDERED: FUROSEMIDE 10 MG/ML 10 ML VIAL IV STA (18:58)
--- NOTE | 2020-10-16 20:12 | US ---
EXAMINATION TYPE: US abd limited kidneys/bladder DATE OF EXAM: 10/16/2020 COMPARISON: US CLINICAL HISTORY: elevated liver enzymes, kinsey/ckd. Elevated liver enzymes, KINSEY/CKD. EXAM MEASUREMENTS: Liver Length: 14.9 cm Gallbladder Wall: 0.5 cm CBD: 0.25 cm Right Kidney: 11.1 x 4.7 x 4.7 cm Left Kidney: Not visualized. Pancreas: Appears wnl Liver: Hyperechoic and mildly heterogeneous. Gallbladder: Fold seen. Wall appears thickened. Fluid seen adjacent to the gallbladder: 0.5 x 1.0 x 1.8 cm. CBD: Portion seen appears wnl. Right Kidney: Appears heterogeneous. Hypoechoic focus seen versus possible prominent pyramid measuri n.4 x 1.9 x 1.4 cm. Left Kidney: Not visualized at this time. Bladder: Patient has Hyatt catheter in place. Unable to evaluate. Bilateral Jets Seen No. -Small free fluid seen adjacent to liver and in LUQ. -Additional small fluid seen superior to the liver/diaphragm. IMPRESSION: Questionable 2.4 cm right hepatic focus versus prominent pyramid. Consider CT for further evaluation. Small perihepatic fluid. Gallbladder wall thickening without definite cholelithiasis, may be reactive due to fluid overload ve rsus hepatic congestion. Nonspecific heterogeneous liver without focal lesion may relate to chronic disease.
[2020-10-16 20:26] LABS: Acetaminophen <10.0 ug/mL; African American GFR (CKD) 14 (>60 ml/min/1.73 sqM); Alcohol <10 mg/dL; Anion Gap 6 mmol/L; Blood Urea Nitrogen 71 mg/dL (7-17); Calcium 9.5 mg/dL (8.4-10.2); Carbon Dioxide 32 mmol/L (22-30); Chloride 107 mmol/L (98-107); Glucose 116 mg/dL (74-99); Non-African American GFR(CKD) 12 (>60 ml/min/1.73 sqM); Sodium 145 mmol/L (137-145)
[2020-10-16 20:37] LABS: Potassium 6.3 mmol/L (3.5-5.1)
[2020-10-16 20:38] LABS: Anisocytosis Slight; HCT 44.2 % (34.0-46.0); HGB 12.1 gm/dL (11.4-16.0); Hypochromasia Marked; MCH 22.7 pg (25.0-35.0); MCHC 27.4 g/dL (31.0-37.0); MCV 82.8 fL (80.0-100.0); Mean Platelet Volume 10.6; Platelet Count 121 k/uL (150-450); Poikilocytosis Moderate; RBC 5.33 m/uL (3.80-5.40); RDW 17.8 % (11.5-15.5)
[2020-10-16 21:17] LABS: Band Neutrophils % 5 %; Lymphocytes # (M) 0.39 k/uL (1.0-4.8); Monocytes # (M) 0.23 k/uL (0-1.0); Neutrophils % (M) 88 %; Nucleated Red Blood Cells 6 /100 WBC (0-0); Total Cells Counted 200; WBC 7.7 k/uL (3.8-10.6)
[2020-10-16 21:18] LABS: Anisocytosis (M) Present; Poikilocytosis (M) Present; Polychromasia Present
[2020-10-16 21:19] LABS: Ovalocytes Present; Target Cells Present
[2020-10-16 22:30] LABS: Glucose,Whole Blood 111 mg/dL (75-99)
--- NOTE | 2020-10-16 22:40 | CT ---
EXAMINATION TYPE: CT abdomen pelvis wo con DATE OF EXAM: 10/16/2020 COMPARISON: None HISTORY: abnormal US, elevated liver enzymes CT DLP: 1830.9 mGycm Automated exposure control for dose reduction was used. Images obtained from the diaphragm to the floor the pelvis without contrast. Heart is enlarged. There are bilateral pleural effusions and bilateral basilar pulmonary consolidatio n and atelectasis. Liver shows no focal defect. Stomach is intact. Gallbladder is intact. The bile ducts are not dilated . Spleen is intact. I see no evidence of pancreatic mass. There is no adrenal mass. Kidneys have normal size. There is no hydronephrosis. Ureters are not dilat ed. There is Hyatt catheter in the bladder. Bladder is almost empty. There is no inguinal hernia. The re is abdominal ascites. There is no evidence of a bowel obstruction. There are multiple sigmoid dive rticula. There is no sign of diverticulitis. There is subcutaneous edema around the abdomen and pelvi s. There is no evidence of free air. Lumbar vertebra have normal alignment. There is previous surgery at L5-S1. There is no lumbar rojas natalie fracture. The hip joints are intact. The bony pelvis is intact. IMPRESSION: Cardiomegaly with pleural effusions and pulmonary basilar consolidation and atelectasis. Ascites. Sub cutaneous edema. This is consistent with chronic congestive heart failure. No discrete liver mass identified.
[2020-10-17 00:07] LABS: Calcium 8.9 mg/dL (8.4-10.2)
[2020-10-17 00:08] LABS: Potassium 6.5 mmol/L (3.5-5.1)
[2020-10-17] MEDS ORDERED: INSULIN REGULAR 100 UNIT/ML VIAL IV ONE ×3 (00:47→10:00)
[2020-10-17] MEDS ORDERED: DEXTROSE 50% SYRINGE 50 ML IVP STA ×3 (00:48→09:21)
[2020-10-17] MEDS ORDERED: SODIUM BICARB 8.4% 50 ML SYR (1 MEQ/ML) IV STA ×2 (00:53→09:23)
[2020-10-17 03:36] LABS: Anisocytosis Slight; HCT 44.4 % (34.0-46.0); HGB 11.9 gm/dL (11.4-16.0); Hypochromasia Marked; MCH 22.5 pg (25.0-35.0); MCHC 26.9 g/dL (31.0-37.0); MCV 83.6 fL (80.0-100.0); Mean Platelet Volume 10.6; Platelet Count 115 k/uL (150-450); Poikilocytosis Moderate; RBC 5.31 m/uL (3.80-5.40); RDW 17.8 % (11.5-15.5)
[2020-10-17 03:44] LABS: Albumin 3.3 g/dL (3.5-5.0); Calcium 8.5 mg/dL (8.4-10.2); Magnesium 2.8 mg/dL (1.6-2.3); Total Bilirubin 0.7 mg/dL (0.2-1.3); Total Protein 6.1 g/dL (6.3-8.2)
[2020-10-17 03:57] LABS: Potassium 6.6 mmol/L (3.5-5.1)
[2020-10-17 04:03] LABS: Band Neutrophils % 7 %; Lymphocytes # (M) 0.52 k/uL (1.0-4.8); Monocytes # (M) 0.26 k/uL (0-1.0); Neutrophils % (M) 84 %; Nucleated Red Blood Cells 4 /100 WBC (0-0); Total Cells Counted 200; WBC 8.7 k/uL (3.8-10.6)
[2020-10-17 04:04] LABS: Anisocytosis (M) Present; Poikilocytosis (M) Present
[2020-10-17] MEDS ORDERED: FUROSEMIDE 10 MG/ML 10 ML VIAL IV STA ×2 (04:28→11:05)
[2020-10-17 06:18] LABS: ABG Base Excess 4.7 mmol/L; ABG HCO3 33 mmol/L (21-25); ABG PH 7.21 (7.35-7.45); ABG PO2 157 mmHg (83-108); ABG TCO2 35 mmol/L (19-24); Allen Test Performed? Yes
[2020-10-17 06:25] LABS: ABG PCO2 82 mmHg (35-45)
[2020-10-17 06:53] LABS: Glucose,Whole Blood 97 mg/dL (75-99)
[2020-10-17] MEDS ORDERED: DEXTROSE 5% IN WATER 1,000 ML with SODIUM BICARB (1 MEQ/ML) 150 ML IV SCH (08:00)
--- NOTE | 2020-10-17 08:18 | P.CNPUL ---
History of Present Illness Consult date: 10/17/20 Requesting physician: Nichole Trujillo Reason for consult: dyspnea, hypoxemia, abnormal CXR/CT, obstructive sleep apnea Chief complaint: Altered mental status, difficulty breathing History of present illness: 60-year-old female patient with past medical history of COPD, CHF with the son dysfunction, chronic kidney disease stage III, diabetes mellitus type 2 with diabetic gastroparesis and diabetic neuropathy, morbid obesity, obstructive sleep apnea, hypertension, hyperlipidemia who was recently hospitalized from 08/24/2020 through 08/29/2020 for acute exacerbation of diastolic CHF. She was discharged home on oral Lasix 40 mg twice a day in addition to multiple other medications, she had troponin elevation during her last visit which was felt to be due to her abnormal renal function. Her echocardiogram from 08/24/2020 showed severe concentric LVH, with an EF between 55 and 60%, trace mitral regurg, right-sided pressures were normal at less than 35 mmHg. Patient was brought into the emergency department per EMS on oral 10/16/2020 with worsening shortness of breath, altered mental status, weakness, poor appetite over the past couple of days prior to admission. Patient's daughter went to her house to check on her mother and found her in rest or distress and poorly responsive, EMS arrived and patient's pulse ox was in the low 70s, chest x-ray in emergency department showed mild to moderate CHF with bibasilar opacities and probable trace left pleural effusion that was previously noted on her previous admission, brain CT showed no acute intracranial abnormality, EKG showed normal sinus rhythm, patient was placed on BiPAP support with pressures of 12 5 and FiO2 of 100%. Blood gas was obtained showing acute on chronic hypercapnic respiratory failure with pO2 of 157, pCO2 of 82, and pH of 7.21, the rest of the blood work was reviewed showing normal white count 7.6, hemoglobin of 12.1, platelet count was 1:30, d-dimer was 9.73, INR was 1.3, potassium was 7.2, BUN was 71, creatinine was 3.56, glucose was 135, no significant elevation of liver enzymes with AST of 6442, and ALT of 2889, troponin was elevated at 2.160. Urinalysis showed 3+ protein, but no clear evidence of urinary tract infection, patient was checked for influenza, RSV and now COVID-19 and was found to be negative. Serum alcohol level was less than 10, acetaminophen level was less than 10. Lactic acid was normal at 1.7. Hent was given Ancef sodium bicarbonate in the emergency department, hyperkalemia was treated with D50, regular insulin, she was given 30 g of Kayexalate in the emergency department. She appears to be generally fluid overloaded, with extensive edema in her lower extremities she was oliguric and she was given 80 mg of Lasix. Nephrology has been consulted. This morning she is more responsive, remains on BiPAP support with above- mentioned settings, she is able to provide simple answers, she any fever or chills, denied any chest pain, she did state that she was increasingly more short of breath and noted increasing lower extremity edema. She denies being oxygen dependent on a regular basis. Her pulse ox is 99%, she has remained afebrile through the night, blood pressures have been stable, she only produced 100 mL in urine output despite the Lasix challenge. This morning her chest x- ray is showing essentially stable findings of mild to moderate perihilar and bibasilar hazy opacities. Ultrasound of the abdomen was obtained showing questionable 2.4 cm right hepatic focus versus prominent pyramid, gallbladder wall appeared thickened with fluid seen adjacent to the gallbladder, common bile duct portion seen appeared within normal limits, kidneys with no evidence of hydronephrosis. CT of the abdomen and pelvis was obtained showing cardiomegaly with pleural effusions and pulmonary basilar consolidation and atelectasis, ascites, subcutaneous edema no discrete liver mass was identified, kidneys were of normal size with no hydronephrosis, ureters were not dilated. There is no evidence of bowel obstruction, there were multiple sigmoid diverticula without any sign of diverticulitis. Follow-up blood work this morning shows a white blood cell count of 8.7, hemoglobin of 11.7, platelet count is 115, sodium of 144, potassium 6.6, chloride is 109, renal profile slightly improved, with B1 at 74, and creatinine of 3.72, AST is down to 4438, and ALT of 2240, alkaline phosphatase is within normal limits at 54. Review of Systems All systems: negative Constitutional: Reports poor appetite, Reports weakness, Denies chills, Denies fever Eyes: denies blurred vision, denies pain Ears, nose, mouth and throat: Denies headache, Denies sore throat Cardiovascular: Denies chest pain, Denies shortness of breath Respiratory: Reports dyspnea, Denies cough Gastrointestinal: Denies abdominal pain, Denies diarrhea, Denies nausea, Denies vomiting Genitourinary: Denies dysuria, Denies hematuria Musculoskeletal: Denies myalgias Integumentary: Denies pruritus, Denies rash Neurological: Denies numbness, Denies weakness Psychiatric: Denies anxiety, Denies depression Endocrine: Denies fatigue, Denies weight change Past Medical History Past Medical History: COPD, Diabetes Mellitus, Eye Disorder, GERD/Reflux, Hyperlipidemia, Hypertension, Osteoarthritis (OA) Additional Past Medical History / Comment(s): spondolysis, , blurry vision & eye problems ?related to diabetes History of Any Multi-Drug Resistant Organisms: None Reported Past Surgical History: Back Surgery, Hysterectomy, Orthopedic Surgery Additional Past Surgical History / Comment(s): RT shoulder surgery, LT arthr oscopy knee. COLONOSCOPY. BACK SX X 2 Past Anesthesia/Blood Transfusion Reactions: No Reported Reaction Past Psychological History: No Psychological Hx Reported Smoking Status: Former smoker Past Alcohol Use History: Rare Additional Past Alcohol Use History / Comment(s): pt. smokes 2 cigs/week, has smoked since age of 12 Past Drug Use History: None Reported - Past Family History Mother Family Medical History: No Reported History Medications and Allergies Home Medications Medication Instructions Recorded Confirmed Type HYDROcodone/APAP 10-325MG [[place] 1 tab PO Q6HR PRN 05/21/15 10/16/20 History 10-325] Albuterol Sulfate [Proair Hfa] 1 - 2 puff INHALATION RT-Q6H PRN 08/24/20 10/16/20 History Baclofen 10 mg PO BID 08/24/20 10/16/20 History Ergocalciferol [Vitamin D2 (1250 1,250 mcg PO MO 08/24/20 10/16/20 History Mcg = 66880 Iu)] Fenofibrate 160 mg PO DAILY 08/24/20 10/16/20 History INSULIN LISPRO (humaLOG) [humaLOG] See Protocol SQ AC-TID 08/24/20 10/16/20 History Insulin Glargine [Lantus] See Protocol SQ HS 08/24/20 10/16/20 History Loratadine [Claritin] 10 mg PO DAILY 08/24/20 10/16/20 History Montelukast [Singulair] 10 mg PO HS 08/24/20 10/16/20 History Nortriptyline [Pamelor] 25 mg PO DAILY 08/24/20 10/16/20 History Pioglitazone [Actos] 30 mg PO DAILY 08/24/20 10/16/20 History Polyethylene Glycol 3350 [Miralax] 17 gm PO DAILY PRN 08/24/20 10/16/20 History Sennosides-Docusate Sodium 1 tab PO BID 08/24/20 10/16/20 History [Senokot-S] Triamcinolone 0.025% Cream 1 applic TOPICAL DAILY PRN 08/24/20 10/16/20 History [Kenalog 0.025% Cream] cloNIDine HCL [Catapres] 0.1 mg PO TID 08/24/20 10/16/20 History hydrALAZINE HCL 50 mg PO Q12H 08/24/20 10/16/20 History Aspirin 81 mg PO DAILY chew 08/29/20 10/16/20 Rx Atorvastatin [Lipitor] 40 mg PO HS #30 tab 08/29/20 10/16/20 Rx Furosemide [Lasix] 40 mg PO BID #60 tablet 08/29/20 10/16/20 Rx Losartan [Cozaar] 50 mg PO DAILY #30 tab 08/29/20 10/16/20 Rx Metoprolol Tartrate [Lopressor] 50 mg PO BID #60 tab 08/29/20 10/16/20 Rx Allergies Allergy/AdvReac Type Severity Reaction Status Date / Time amoxicillin [Amoxicillin] Allergy Rash/Hives Verified 10/16/20 17:19 latanoprost AdvReac blurry Verified 10/16/20 17:19 vision prednisolone AdvReac Swelling Verified 10/16/20 17:19 steroids AdvReac affected Uncoded 10/12/20 15:10 eyes Physical Exam Vitals: Vital Signs Temp Pulse Resp BP Pulse Ox 10/17/20 07:00 86 11 L 144/83 99 10/17/20 06:00 89 12 149/71 99 10/17/20 05:00 86 10 L 150/79 99 10/17/20 04:00 85 12 144/86 99 10/17/20 03:00 80 10 L 145/80 100 10/17/20 02:00 87 12 141/81 99 10/17/20 01:00 80 13 153/84 99 10/17/20 00:00 97.6 F 84 16 133/78 99 10/16/20 22:34 98.0 F 81 18 146/88 99 10/16/20 22:00 77 10 L 150/98 100 10/16/20 21:00 82 17 145/95 100 10/16/20 20:00 78 16 150/93 100 10/16/20 19:00 78 18 155/94 100 10/16/20 18:48 82 23 10/16/20 18:27 79 24 10/16/20 18:17 76 18 155/94 98 10/16/20 18:00 80 16 175/99 100 10/16/20 17:00 76 18 145/81 100 10/16/20 16:48 81 18 192/165 99 10/16/20 16:02 18 10/16/20 15:56 97.6 F 79 18 152/104 96 Intake and Output 10/16/20 10/17/20 10/17/20 22:59 06:59 14:59 Output Total 20 96 33 Balance -20 -96 -33 Output: Urine 20 96 33 Other: Voiding Method Indwelling Catheter # Bowel Movements 1 Weight 99.79 kg 110 kg GENERAL EXAM: Lethargic but arousable to voice, and is able to provide simple responses to questions, oriented to self and the place, 60-year-old - [place] female on BiPAP support with pressures of 12 and 5 and FiO2 of 100% comfortable in no apparent distress. HEAD: Normocephalic/atraumatic. EYES: Normal reaction of pupils, equal size. Conjunctiva pink, sclera white. NOSE: Clear with pink turbinates. THROAT: No erythema or exudates. NECK: No masses, no JVD, no thyroid enlargement, no adenopathy. CHEST: No chest wall deformity. Symmetrical expansion. LUNGS: Equal air entry with no crackles, wheeze, rhonchi or dullness. CVS: Regular rate and rhythm, normal S1 and S2, no gallops, no murmurs, no rubs ABDOMEN: Soft, obese, nontender. No hepatosplenomegaly, normal bowel sounds, no guarding or rigidity. EXTREMITIES: No clubbing, plus lower extremity edema no cyanosis, 2+ pulses and upper and lower extremities. MUSCULOSKELETAL: Muscle strength and tone normal. SPINE: No scoliosis or deformity SKIN: No rashes CENTRAL NERVOUS SYSTEM: Somnolent, arousable to voice and oriented -2. No fo subhash deficits, tone is normal in all 4 extremities. Results - Laboratory Findings CBC and BMP: 10/17/20 03:18 10/17/20 03:18 ABG ABG pH 7.21 (7.35-7.45) L 10/17/20 06:08 ABG pCO2 82 mmHg (35-45) H* 10/17/20 06:08 ABG pO2 157 mmHg (83-108) H 10/17/20 06:08 ABG O2 Saturation 99.0 % (94-97) H 10/17/20 06:08 PT/INR, D-dimer PT 13.4 sec (9.0-12.0) H 10/16/20 16:23 INR 1.3 (<1.2) H 10/16/20 16:23 D-Dimer 9.73 mg/L FEU (<0.60) H 10/16/20 16:23 Abnormal lab findings: Abnormal Labs 10/16/20 10/16/20 10/16/20 16:15 16:23 16:23 MCH 22.7 L MCHC 27.5 L RDW 17.8 H Plt Count 130 L D Neutrophils # (Manual) Lymphocytes # (Manual) 0.23 L Nucleated RBCs 2 H PT 13.4 H INR 1.3 H APTT 21.2 L D-Dimer ABG pH ABG pCO2 ABG pO2 ABG HCO3 ABG Total CO2 ABG O2 Saturation VBG pH VBG pCO2 VBG HCO3 Potassium Chloride Carbon Dioxide BUN Creatinine Glucose POC Glucose (mg/dL) 134 H Magnesium AST ALT Creatine Kinase Troponin I Total Protein Albumin Urine Appearance Urine Protein Amorphous Sediment Urine Bacteria Hyaline Casts Urine Mucus 10/16/20 10/16/20 10/16/20 16:23 16:23 16:23 MCH MCHC RDW Plt Count Neutrophils # (Manual) Lymphocytes # (Manual) Nucleated RBCs PT INR APTT D-Dimer ABG pH ABG pCO2 ABG pO2 ABG HCO3 ABG Total CO2 ABG O2 Saturation VBG pH VBG pCO2 VBG HCO3 Potassium 7.2 H* Chloride Carbon Dioxide BUN 71 H Creatinine 3.56 H Glucose 135 H POC Glucose (mg/dL) Magnesium AST 6442 H ALT 2889 H Creatine Kinase 476 H Troponin I 2.160 H* Total Protein Albumin Urine Appearance Cloudy H Urine Protein 3+ H Amorphous Sediment Rare H Urine Bacteria Rare H Hyaline Casts 7 H Urine Mucus Rare H 10/16/20 10/16/20 10/16/20 16:23 16:23 19:54 MCH 22.7 L MCHC 27.4 L RDW 17.8 H Plt Count 121 L Neutrophils # (Manual) Lymphocytes # (Manual) 0.39 L Nucleated RBCs 6 H PT INR APTT D-Dimer 9.73 H ABG pH ABG pCO2 ABG pO2 ABG HCO3 ABG Total CO2 ABG O2 Saturation VBG pH 7.24 L VBG pCO2 70 H* VBG HCO3 30 H Potassium Chloride Carbon Dioxide BUN Creatinine Glucose POC Glucose (mg/dL) Magnesium AST ALT Creatine Kinase Troponin I Total Protein Albumin Urine Appearance Urine Protein Amorphous Sediment Urine Bacteria Hyaline Casts Urine Mucus 10/16/20 10/16/20 10/16/20 19:54 22:29 23:39 MCH MCHC RDW Plt Count Neutrophils # (Manual) Lymphocytes # (Manual) Nucleated RBCs PT INR APTT D-Dimer ABG pH ABG pCO2 ABG pO2 ABG HCO3 ABG Total CO2 ABG O2 Saturation VBG pH VBG pCO2 VBG HCO3 Potassium 6.3 H* 6.5 H* Chloride Carbon Dioxide 32 H 35 H BUN 71 H 72 H Creatinine 3.82 H 4.01 H Glucose 116 H 107 H POC Glucose (mg/dL) 111 H Magnesium AST ALT Creatine Kinase Troponin I Total Protein Albumin Urine Appearance Urine Protein Amorphous Sediment Urine Bacteria Hyaline Casts Urine Mucus 10/17/20 10/17/20 10/17/20 03:18 03:18 06:08 MCH 22.5 L MCHC 26.9 L RDW 17.8 H Plt Count 115 L Neutrophils # (Manual) 7.90 H Lymphocytes # (Manual) 0.52 L Nucleated RBCs 4 H PT INR APTT D-Dimer ABG pH 7.21 L ABG pCO2 82 H* ABG pO2 157 H ABG HCO3 33 H ABG Total CO2 35 H ABG O2 Saturation 99.0 H VBG pH VBG pCO2 VBG HCO3 Potassium 6.6 H* Chloride 109 H Carbon Dioxide BUN 74 H Creatinine 3.72 H Glucose 104 H POC Glucose (mg/dL) Magnesium 2.8 H AST 4438 H ALT 2240 H Creatine Kinase Troponin I Total Protein 6.1 L Albumin 3.3 L Urine Appearance Urine Protein Amorphous Sediment Urine Bacteria Hyaline Casts Urine Mucus - Diagnostic Findings Chest x-ray: report reviewed, image reviewed Additional studies: CT of the abdomen and pelvis, abdominal ultrasound, EKG reviewed Assessment and Plan Plan: Assessment: #1. Acute on chronic hypercapnic respiratory failure related to acute exacerbation of CHF with previous document a diastolic dysfunction. She req uired BiPAP support, currently pressures 12/5 and FiO2 of 100% #2. Altered mental status, due to the above, brain CT showed no acute abnormality, improving with BiPAP support #3. Acute kidney injury with oliguria, and hyperkalemia. Evidence of hydronephrosis on the ultrasound of the abdomen and the CT of the abdomen and pelvis #4. Hyperkalemia, being corrected with bicarbonate, D50, insulin and Kayexalate, improving from 7.4 down to 6.6 on today's labs #5. Shock liver, possibly related to hypoperfusion. CT of the abdomen showed no discrete liver mass #6. Troponin elevation, rule out possibility of non-ST elevated myocardial infarction, cardiology is following #7. Elevated d-dimer, will obtain lower extremity Dopplers #8. History of diastolic CHF #9. Recent hospitalization in August for acute exacerbation of CHF #10. History of COPD not oxygen dependent at baseline #11. Obstructive sleep apnea #12. Hypertension #13. Hyperlipidemia #14. Diabetes mellitus type 2 with gastroparesis and neuropathy #15. Former smoker Plan: We'll start patient on Lasix 60 mg every 8 hours D5W with 3 A of bicarbonate at a rate of 75 ML per hour Repeat electrolytes at 11:00 Nephrology consultation Echocardiogram is pending cardiology consultation Lower extremity Dopplers For now start subcu heparin 5000 units every 8 hours, continue Protonix Monitor urine output Continue BiPAP support Glucose monitoring and glucose control Continue to closely follow in the intensive care unit I performed a history & physical examination of the patient and discussed their management with my nurse practitioner, Argelia Alvarado. I reviewed the nurse practitioner's note and agree with the documented findings and plan of care. Lung sounds are positive for diminished breath sounds The findings and the impression was discussed with the patient. I attest to the documentation by the nurse practitioner. Time with Patient: Greater than 30
--- NOTE | 2020-10-17 09:16 | P.CRDCN ---
History of Present Illness History of present illness: HISTORY OF PRESENTING ILLNESS This is a pleasant 60-year-old -[place] female past medical history significant for hypertension, dyslipidemia, diabetes mellitus, COPD and former nicotine. He does not follow regularly in the office with a demurrage man. In [address] Khan secondary to an abnormal stress test prompting cardiac catheterization which revealed normal coronary arteries. We have been asked to see in consultation for elevated troponin. Was brought to the hospital after her daughter was unable to get all of her for 3 days. She was found at home to have altered mental status and shortness of breath. On arrival to the emergency department pulse ox was 84% on room air. She states she has not been eating or drinking any fluids due to poor appetite over the previous few days. She is seen and examined sitting up on BiPAP in the intensive care unit. She has no symptoms of chest discomfort. She states her breathing seems to have improved since admission. She has no dizziness or palpitations. Nephrology and pulmonary are also following. She seems to be profoundly dehydrated with acute kidney injury and hyperkalemia. Most recent echocardiogram obtained August 2020 revealed preserved LV systolic function with ejection fraction 55-60%. DIAGNOSTICS EKG reveals sinus mechanism with right axis deviation heart rate of 77. Telemetry tracings indicate sinus mechanism with no acute arrhythmias noted. Chest xray bibasilar opacities with trace left pleural effusion. CT of the brain was negative for acute intracranial abnormality Ultrasound of the abdomen revealed questionable right hepatic focus, small perihepatic fluid, gallbladder wall thickening likely reactive to fluid volume overload, nonspecific heterogeneous liver without focal lesion. CT of the abdomen and pelvis revealed pleural effusions and pulmonary basilar consolidation, ascites, subcutaneous edema consistent with chronic congestive heart failure and no discrete liver mass identified. Laboratory reviewed, WBC 8.7, hemoglobin 11.9, platelets 115, pCO2 82, potassium on admission 7.2, repeat today 6.6, creatinine 3.72, AST 4438, ALT 2240, troponin 2.16, and T proBNP 24,200, TSH 1.65. Current cardiac medications include aspirin 81 mg daily, atorvastatin 40 mg daily, Lasix 40 mg twice a day, fenofibrate 160 mg daily, losartan 50 mg daily, Lopressor 50 mg twice a day, clonidine 0.1 mg 3 times a day and hydralazine 50 mg twice a day. REVIEW OF SYSTEMS At the time of my exam: CONSTITUTIONAL: Denies fever or chills. CARDIOVASCULAR: Complains of shortness of breath. Denies chest pain, orthopnea, PND or palpitations. RESPIRATORY: Denies cough. GASTROINTESTINAL: Complains of poor oral intake. Denies abdominal pain, diarrhea, constipation, nausea or vomiting. MUSCULOSKELETAL: Denies myalgias. NEUROLOGIC: Denies numbness, tingling, headacbe or weakness. ENDOCRINE: Denies fatigue, weight change, polydipsia or polyurina. GENITOURINARY: Denies burning, hematuria or urgency with micturation. HEMATOLOGIC: Denies history of anemia or bleeding. PHYSICAL EXAMINATION Blood pressure 132/82 heart rate 82 afebrile and maintaining oxygen saturation on BiPAP. CONSTITUTIONAL: No apparent distress. HEENT: Head is normocephalic. Pupils are equal, round. Sclerae anicteric. Mucous membranes of the mouth are moist. No JVD. No carotid bruit. CHEST EXAMINATION: Lungs are clear to auscultation. No chest wall tenderness is noted on palpation or with deep breathing. Diminished bilaterally. HEART EXAMINATION: Regular rate and rhythm. S1, S2 heard. No murmurs, gallops or rub. ABDOMEN: Soft, nontender. Positive bowel sounds. EXTREMITIES: 2+ peripheral pulses, 3+ bilateral lower extremity pitting edema and no calf tenderness. NEUROLOGIC EXAMINATION: Patient is awake, alert and oriented x3. ASSESSMENT Hyperkalemia Dehydration secondary to prerenal azotemia Thrombocytopenia Hypercapnic respiratory failure Altered mental status Acute on chronic kidney disease Transaminitis Troponin elevation is not related to primary myocardial injury Hypertension Dyslipidemia Diabetes mellitus COPD PLAN Continue medications to lower potassium, if repeat level continues to be high would give another dose of Kayexalate. Repeat 2-D echocardiogram and Doppler study to assess cardiac structure and function. Troponin elevation not related to primary myocardial injury likely related to acute on chronic kidney disease. Hold atorvastatin secondary to transaminitis. Hold losartan secondary to kidney disease. Continue Lopressor as previously ordered. Increase bicarb infusion to 100cc/hour. Further recommendations to follow based on clinical course. Thank you kindly for this consultation. Nurse Practitioner note has been reviewed, I agree with a documented findings and plan of care. Patient was seen and examined. Past Medical History Past Medical History: COPD, Diabetes Mellitus, Eye Disorder, GERD/Reflux, Hyperlipidemia, Hypertension, Osteoarthritis (OA) Additional Past Medical History / Comment(s): spondolysis, , blurry vision & eye problems ?related to diabetes History of Any Multi-Drug Resistant Organisms: None Reported Past Surgical History: Back Surgery, Hysterectomy, Orthopedic Surgery Additional Past Surgical History / Comment(s): RT shoulder surgery, LT arthroscopy knee. COLONOSCOPY. BACK SX X 2 Past Anesthesia/Blood Transfusion Reactions: No Reported Reaction Past Psychological History: No Psychological Hx Reported Smoking Status: Former smoker Past Alcohol Use History: Rare Additional Past Alcohol Use History / Comment(s): pt. smokes 2 cigs/week, has smoked since age of 12 Past Drug Use History: None Reported - Past Family History Mother Family Medical History: No Reported History Medications and Allergies Home Medications Medication Instructions Recorded Confirmed Type HYDROcodone/APAP 10-325MG [[place] 1 tab PO Q6HR PRN 05/21/15 10/16/20 History 10-325] Albuterol Sulfate [Proair Hfa] 1 - 2 puff INHALATION RT-Q6H PRN 08/24/20 10/16/20 History Baclofen 10 mg PO BID 08/24/20 10/16/20 History Ergocalciferol [Vitamin D2 (1250 1,250 mcg PO MO 08/24/20 10/16/20 History Mcg = 14783 Iu)] Fenofibrate 160 mg PO DAILY 08/24/20 10/16/20 History INSULIN LISPRO (humaLOG) [humaLOG] See Protocol SQ AC-TID 08/24/20 10/16/20 History Insulin Glargine [Lantus] See Protocol SQ HS 08/24/20 10/16/20 History Loratadine [Claritin] 10 mg PO DAILY 08/24/20 10/16/20 History Montelukast [Singulair] 10 mg PO HS 08/24/20 10/16/20 History Nortriptyline [Pamelor] 25 mg PO DAILY 08/24/20 10/16/20 History Pioglitazone [Actos] 30 mg PO DAILY 08/24/20 10/16/20 History Polyethylene Glycol 3350 [Miralax] 17 gm PO DAILY PRN 08/24/20 10/16/20 History Sennosides-Docusate Sodium 1 tab PO BID 08/24/20 10/16/20 History [Senokot-S] Triamcinolone 0.025% Cream 1 applic TOPICAL DAILY PRN 08/24/20 10/16/20 History [Kenalog 0.025% Cream] cloNIDine HCL [Catapres] 0.1 mg PO TID 08/24/20 10/16/20 History hydrALAZINE HCL 50 mg PO Q12H 08/24/20 10/16/20 History Aspirin 81 mg PO DAILY chew 08/29/20 10/16/20 Rx Atorvastatin [Lipitor] 40 mg PO HS #30 tab 08/29/20 10/16/20 Rx Furosemide [Lasix] 40 mg PO BID #60 tablet 08/29/20 10/16/20 Rx Losartan [Cozaar] 50 mg PO DAILY #30 tab 08/29/20 10/16/20 Rx Metoprolol Tartrate [Lopressor] 50 mg PO BID #60 tab 08/29/20 10/16/20 Rx Allergies Allergy/AdvReac Type Severity Reaction Status Date / Time amoxicillin [Amoxicillin] Allergy Rash/Hives Verified 10/16/20 17:19 latanoprost AdvReac blurry Verified 10/16/20 17:19 vision prednisolone AdvReac Swelling Verified 10/16/20 17:19 steroids AdvReac affected Uncoded 10/12/20 15:10 eyes Physical Exam Vitals: Vital Signs Temp Pulse Resp BP Pulse Ox 10/17/20 08:00 98.4 F 82 11 L 132/82 99 10/17/20 07:00 86 11 L 144/83 99 10/17/20 06:00 89 12 149/71 99 10/17/20 05:00 86 10 L 150/79 99 10/17/20 04:00 85 12 144/86 99 10/17/20 03:00 80 10 L 145/80 100 10/17/20 02:00 87 12 141/81 99 10/17/20 01:00 80 13 153/84 99 10/17/20 00:00 97.6 F 84 16 133/78 99 10/16/20 22:34 98.0 F 81 18 146/88 99 10/16/20 22:00 77 10 L 150/98 100 10/16/20 21:00 82 17 145/95 100 10/16/20 20:00 78 16 150/93 100 10/16/20 19:00 78 18 155/94 100 10/16/20 18:48 82 23 0504/21 18:27 79 24 10/16/20 18:17 76 18 155/94 98 10/16/20 18:00 80 16 175/99 100 10/16/20 17:00 76 18 145/81 100 10/16/20 16:48 81 18 192/165 99 10/16/20 16:02 18 10/16/20 15:56 97.6 F 79 18 152/104 96 Intake and Output 10/16/20 10/17/20 10/17/20 22:59 06:59 14:59 Intake Total 75 Output Total 20 96 48 Balance -20 96 27 Intake: Intake, IV Titration 75 Amount Dextrose 5% in Water 1, 75 000 ml @ 75 mls/hr IV . [id number] [facility] with Sodium Bicarb (1 Meq/ml) 150 ml Rx#:[id number] Output: Urine 20 96 48 Other: Voiding Method Indwelling Catheter # Bowel Movements 1 Weight 99.79 kg 110 kg Results 10/17/20 03:18 10/17/20 07:49 Cardiac Enzymes 10/16/20 10/16/20 10/17/20 Range/Units 16:23 16:23 03:18 AST 6442 H 4438 H (14-36) U/L Troponin I 2.160 H* (0.000-0.034) ng/mL Coagulation 10/16/20 Range/Units 16:23 PT 13.4 H (9.0-12.0) sec APTT 21.2 L (22.0-30.0) sec CBC 10/16/20 10/16/20 10/17/20 Range/Units 16:23 19:54 03:18 WBC 7.6 7.7 8.7 (3.8-10.6) k/uL RBC 5.33 5.33 5.31 (3.80-5.40) m/uL Hgb 12.1 12.1 11.9 (11.4-16.0) gm/dL Hct 44.0 44.2 44.4 (34.0-46.0) % Plt Count 130 L D 121 L 115 L (150-450) k/uL Comprehensive Metabolic Panel 10/16/20 10/16/20 10/16/20 Range/Units 16:23 19:54 23:39 Sodium 145 145 145 (137-145) mmol/L Potassium 7.2 H* 6.3 H* 6.5 H* (3.5-5.1) mmol/L Chloride 106 107 106 (98-107) mmol/L Carbon Dioxide 30 32 H 35 H (22-30) mmol/L BUN 71 H 71 H 72 H (7-17) mg/dL Creatinine 3.56 H 3.82 H 4.01 H (0.52-1.04) mg/dL Glucose 135 H 116 H 107 H (74-99) mg/dL Calcium 8.6 9.5 8.9 (8.4-10.2) mg/dL AST 6442 H (14-36) U/L ALT 2889 H (4-34) U/L Alkaline Phosphatase 61 (38-126) U/L Total Protein 6.4 (6.3-8.2) g/dL Albumin 3.5 (3.5-5.0) g/dL 10/17/20 10/17/20 Range/Units 03:18 07:49 Sodium 144 (137-145) mmol/L Potassium 6.6 H* 6.7 H* (3.5-5.1) mmol/L Chloride 109 H (98-107) mmol/L Carbon Dioxide 27 (22-30) mmol/L BUN 74 H (7-17) mg/dL Creatinine 3.72 H (0.52-1.04) mg/dL Glucose 104 H (74-99) mg/dL Calcium 8.5 (8.4-10.2) mg/dL AST 4438 H (14-36) U/L ALT 2240 H (4-34) U/L Alkaline Phosphatase 54 (38-126) U/L Total Protein 6.1 L (6.3-8.2) g/dL Albumin 3.3 L (3.5-5.0) g/dL Current Medications Generic Name Dose Route Start Last Admin Trade Name Freq PRN Reason Stop Dose Admin Aspirin 81 mg 10/17/20 09:00 Aspirin 81 Mg PO DAILY [facility] Heparin Sodium (Porcine) 5,000 unit 10/17/20 08:00 Heparin Sodium,Porcine/Pf 5,000 Unit/0.5 Ml Syringe SQ Q8HR [facility] Sodium Bicarbonate 150 ml/ 1,150 mls @ 75 mls/hr 10/17/20 08:00 10/17/20 08:30 Dextrose/Water IV 75 mls/hr .[id number] [facility] Administration Insulin Aspart 0 unit 10/17/20 07:30 Insulin Aspart (Novolog) 100 Unit/Ml Vial SQ ACHS [facility] Protocol Metoprolol Tartrate 50 mg 10/17/20 09:00 Metoprolol Tartrate 50 Mg Tab PO BID [facility] Montelukast Sodium 10 mg 10/17/20 21:00 Montelukast 10 Mg Tab PO HS [facility] Naloxone HCl 0.2 mg 10/16/20 18:21 Naloxone 0.4 Mg/Ml 1 Ml Vial IV Q2M PRN Opioid Reversal Nortriptyline HCl 25 mg 10/17/20 09:00 Nortriptyline 25 Mg Cap PO DAILY [facility] Pantoprazole Sodium 40 mg 10/17/20 09:00 Pantoprazole 40 Mg/10 Ml Vial IV DAILY [facility] Senna/Docusate Sodium 1 each 10/17/20 09:00 Sennosides-Docusate Sodium 1 Each Tab PO BID [facility] Intake and Output 10/16/20 10/17/20 10/17/20 22:59 06:59 14:59 Intake Total 75 Output Total 20 96 48 Balance -20 -96 27 Intake: Intake, IV Titration 75 Amount Dextrose 5% in Water 1, 75 000 ml @ 75 mls/hr IV . [id number] [facility] with Sodium Bicarb (1 Meq/ml) 150 ml Rx#:[id number] Output: Urine 20 96 48 Other: Voiding Method Indwelling Catheter # Bowel Movements 1 Weight 99.79 kg 110 kg 10/17/20 03:18 10/17/20 07:49
--- NOTE | 2020-10-17 09:18 | XR ---
EXAMINATION TYPE: XR chest 1V DATE OF EXAM: 10/17/2020 CLINICAL HISTORY: CHF. TECHNIQUE: Portable semiupright view of the chest. COMPARISON: 10/16/2020 FINDINGS: Redemonstrated cardiomegaly and perihilar and bibasilar airspace opacities. Obscuration of the left hemidiaphragm and costophrenic angle may be due to cardiomegaly versus pleural effusion. No pneumothorax. IMPRESSION: Findings suggestive of CHF with similar radiographic appearance of the chest versus 10/16/2020 comparis on.
[2020-10-17] MEDS: PANTOPRAZOLE 40 MG/10 ML VIAL IV SCH (09:41)
[2020-10-17] MEDS: SENNOSIDES-DOCUSATE SODIUM 1 EACH TAB PO SCH ×2 (09:41→21:55)
[2020-10-17] MEDS: HEPARIN SODIUM,PORCINE/PF 5,000 UNIT/0.5 ML SYRINGE SQ SCH ×2 (09:41→16:54)
[2020-10-17] MEDS: ASPIRIN 81 MG PO SCH (09:42)
[2020-10-17] MEDS: METOPROLOL TARTRATE 50 MG TAB PO SCH ×2 (09:42→21:55)
[2020-10-17] MEDS: NORTRIPTYLINE 25 MG CAP PO SCH (09:45)
--- NOTE | 2020-10-17 09:51 | US ---
EXAMINATION TYPE: US venous doppler duplex LE DATE OF EXAM: 10/17/2020 8:57 AM COMPARISON: NONE CLINICAL HISTORY: rule out DVT. Edema SIDE PERFORMED: bilateral TECHNIQUE: The lower extremity deep venous system is examined utilizing real time linear array sonog john with graded compression, doppler sonography and color-flow sonography. VESSELS IMAGED: Common Femoral Vein Deep Femoral Vein Greater Saphenous Vein * Femoral Vein Popliteal Vein Small Saphenous Vein * Proximal Calf Veins (* superficial vessels) Right Leg: Technical limitations due to large amount of soft tissue edema. No evidence of DVT. Dista l femoral vein not visualized for compression however demonstrates patent color Doppler flow. The rem aining veins are compressible with normal vascular waveforms. Complex anechoic area right popliteal f tyler = 3.8 x 1.7 x 2.4cm. Left Leg: No evidence of DVT . Normal flow, compressibility, vascular waveforms. IMPRESSION: 1. No evidence of DVT bilaterally. 2. Bilateral lower extremity subcutaneous edema. 3. Right popliteal fossa cyst measures 3.8 cm.
[2020-10-17] MEDS ORDERED: hydrALAZINE HCL 20 MG/ML 1 ML VIAL IVP PRN (09:53)
[2020-10-17] MEDS ORDERED: HYDROmorphone 0.5 MG/0.5 ML SYRINGE IVP PRN (09:54)
--- NOTE | 2020-10-17 10:37 | ECHOF ---
Referral Reason:nstemi MEASUREMENTS -------- HEIGHT: 167.6 cm WEIGHT: 109.8 kg BP: 149/71 RVIDd: 4.2 cm (< 3.3) IVSd: 1.7 cm (0.6 - 1.1) LVIDd: 4.4 cm (3.9 - 5.3) LVPWd: 2.1 cm (0.6 - 1.1) IVSs: 2.2 cm LVIDs: 2.3 cm LVPWs: 2.6 cm LAESV Index (A-L): 29.66 ml/m Ao Diam: 2.6 cm (2.0 - 3.7) AV Cusp: 2.2 cm (1.5 - 2.6) MV EXCURSION: 17.514 mm (> 18.000) MV EF SLOPE: 44 mm/s (70 - 150) EPSS: 0.4 cm MV E Car: 0.98 m/s MV DecT: 192 ms MV A Car: 1.05 m/s MV E/A Ratio: 0.93 RAP: 20.00 mmHg RVSP: 69.01 mmHg FINDINGS -------- Sinus rhythm. This was a technically adequate study. The left ventricular size is normal. There is severe concentric left ventricular hypertrophy. Ove rall left ventricular systolic function is normal with, an EF between 55 - 60 %. The right ventricle is severely enlarged. Paradoxical motion of the right ventricular septum is con sistent with right ventricular overload and/or elevated right ventricular end-diastolic pressure. LA is midly dilated 29-33ml/m2. The right atrium is moderately enlarged. Interatrial and interventricular septum intact. The aortic valve is trileaflet and appears structurally normal. There is mild aortic valve sclerosi s. There is no evidence of aortic regurgitation. There is no evidence of aortic stenosis. There is trace to mild mitral regurgitation. Moderate tricuspid regurgitation present. There is severe pulmonary hypertension. The right ventr icular systolic pressure, as measured by Doppler, is 69.01mmHg. There is no pulmonic regurgitation present. The aortic root size is normal. The inferior vena cava is dilated with poor inspiratory collapse which is consistent with estimated r ight atrial pressure of 20 mmHg. There is a trivial pericardial effusion present. Pleural effusion noted. CONCLUSIONS -------- 1. The left ventricular size is normal. 2. There is severe concentric left ventricular hypertrophy. 3. Overall left ventricular systolic function is normal with, an EF between 55 - 60 %. 4. The right ventricle is severely enlarged. 5. Paradoxical motion of the right ventricular septum is consistent with right ventricular overload a nd/or elevated right ventricular end-diastolic pressure. 6. LA is midly dilated 29-33ml/m2. 7. The right atrium is moderately enlarged. 8. There is mild aortic valve sclerosis. 9. There is trace to mild mitral regurgitation. 10. Moderate tricuspid regurgitation present. 11. There is severe pulmonary hypertension. 12. The right ventricular systolic pressure, as measured by Doppler, is 69.01mmHg. 13. The inferior vena cava is dilated with poor inspiratory collapse which is consistent with estimat ed right atrial pressure of 20 mmHg. 14. There is a trivial pericardial effusion present. 15. Pleural effusion noted. [employer] MECH[employer]IC: Elvira Ochoa RDCS
[2020-10-17] MEDS: INSULIN ASPART (NovoLOG) 100 UNIT/ML VIAL SQ SCH ×4 (10:45→22:01)
[2020-10-17 10:49] LABS: Glucose,Whole Blood 107 mg/dL (75-99)
--- NOTE | 2020-10-17 11:11 | P.HPIM ---
History of Present Illness H&P Date: 10/17/20 HISTORY OF PRESENT ILLNESS This is a 60-year-old female patient at [facility] with past medical history significant for COPD, diabetes mellitus type 2, gastroesophageal reflux disease, hypertension, hyperlipidemia, generalized osteoarthritis, remote history of tobacco use and dependence. Patient had recent hospitalization in August 24 through August 29 [facility] for acute respiratory failure secondary to acute diastolic heart failure, acute kidney injury and metabolic encephalopathy. A cardiogram at that time revealed severe concentric left hypertrophy with EF of 55-60%, trace mitral regurgitation. Apparently patient's daughter was trying to reach her for the past 3 days and she went over to check on her and found her poorly responsive. EMS was contacted and pulse ox was initially in the 70s. Patient was brought into [facility] emergency center for evaluation. Patient was afebrile, heart rate 80, blood pressure 152/104 and pulse ox 96% on nonrebreather. EKG sinus with right axis deviation. WBC 7.6, hemoglobin 12.1, platelet count 130. D-dimer 9.73. Sodium 145, potassium 7.2, chloride 106, CO2 30, BUN 71 and creatinine 3.56. Blood sugar 134. AST 6442, ALT 2889, CK 476. Troponin 2.160. Urinalysis was negative for infection. I nfluenza, RSV and colon testing all not detected. Chest x-ray revealed mild to moderate CHF with bibasilar opacities and probable trace left pleural effusion. CAT scan of the brain showed no acute intracranial abnormality. Echocardiogram reveals severe concentric left ventricular hypertrophy with EF 55-60%, mild mitral regurgitation, mild aortic valve sclerosis, moderate tricuspid regurgitation, severe pulmonary hypertension Renal ultrasound revealed questionable 2.4 cm right hepatic focus versus prominent pyramid. Consider CAT scan for further evaluation. Small perihepatic fluid. Gallbladder wall thickening without definite cholelithiasis, may be reactive due to fluid overload versus hepatic congestion. Nonspecific heterogenous liver without focal lesion may relate to chronic disease. CAT scan of the abdomen and pelvis without contrast revealed cardiomegaly with pleural effusions and pulmonary basilar consolidation and atelectasis. Ascites. Saphenous edema. Consistent with chronic heart failure. No discrete liver mass identified. Bilateral lower extremity ultrasound was negative for DVT bilaterally. Bilateral lower extremity subcutaneous edema. Right popliteal fossa cyst measuring 3.8 cm. Repeat chest x-ray this morning reveals CHF. She has been admitted into the intensive care unit and multiple consultants on her case including pulmonary medicine for intensive care management. Patient has been seen by cardiology, acute coronary syndrome ruled out, atorvastatin on hold, losartan on hold and plan to continue Lopressor. Patient has been evaluated by nephrology and received any milligrams of IV Lasix followed by 30 mL of output per 2 hour, subsequently started on bicarb drip with improved renal output REVIEW OF SYSTEMS Constitutional: No fever, no chills, no night sweats. No weight change. Reports weakness, Reportsfatigue Reports lethargy. No daytime sleepiness. EENT: No headache. No blurred vision or double vision, no loss of vision. No loss of Hearing, no ringing in the ears, no dizziness. No nasal drainage or congestion. No epistaxis. No sore throat. Lungs: Reports shortness of breath, cough, no sputum production. No wheezing. Reports shortness of breath with exertion. Cardiovascular: No chest pain, reports lower extremity edema. No palpitations. No paroxysmal nocturnal dyspnea. No orthopnea. No lightheadedness or dizziness. No syncopal episodes. Abdominal: No abdominal pain. No nausea, vomiting. No diarrhea. No constipation. No bloody or tarry stools. No loss of appetite. Genitourinary: No dysuria, increased frequency, urgency. No urinary retention. Musculoskeletal: No myalgias. Reports muscle weakness, Reports gait dysfunction, no frequent falls. No back pain. No neck pain. Integumentary: No wounds, no lesions. No rash or pruritus. Neurologic: No aphasia. No facial droop. Reports change in mentation. No head injury. No headache. No paralysis. No paresthesia. Psychiatric: No depression. No anxiety. Endocrine: No abnormal blood sugars. No weight change. SOCIAL HISTORY Patient is a smoker of 4-5 cigarettes per day for 30 years. She has recently cut down to 2-3 cigarettes per day with plan for smoking cessation. She drinks alcohol rarely. No illicit drug use. She lives alone and her sister is her caregiver. She does not have oxygen, CPAP at home. She does have a nebulizer. She does not utilize aid for ambulation. FAMILY HISTORY Mother at age 63 from COPD. Father is alive the patient does not know his medical history. She has one stepbrother. Patient has 3 sisters. One sister has diabetes type 2, one sister has diabetes type 1 and one sister has no major medical problems. Patient's 3 daughters with no major medical problems. PHYSICAL EXAMINATION Gen: This priscila 60-year-old -Bh[place] female. She is resting in ICU bed appears to be comfortable. Patient is currently on BiPAP. HEENT: Head is atraumatic, normocephalic. Pupils equal, round. Sclerae is anict raine. NECK: Supple. No JVD. No lymphadenopathy. No thyromegaly. LUNGS: reveals diminished bilaterally, few expiratory wheeze. Accessory muscle usage No intercostal retractions. HEART: Regular rate and rhythm. No murmur. ABDOMEN: Soft. Bowel sounds are present. No masses. No tenderness. Hyatt catheter with clear santo urine. EXTREMITIES: 1+ bilateral pedal edema, edema to the right thigh. Dorsalis pedis +2 bilaterally. No calf tenderness. NEUROLOGICAL: Patient is awake, oriented to person and place, able to nod to answer simple questions. No focal neuro deficits. ASSESSMENT AND PLAN 1. Acute hypercapnic and hypoxic respiratory failure secondary to acute di astolic heart failure. Patient is continued on BiPAP and followed by pulmonary medicine/construction consultant. 2. Metabolic encephalopathy most likely secondary to hypoxia and renal failure. CAT scan of the brain was negative for acute finding. Continue to monitor closely. 3. Acute kidney injury with oliguria. Nephrology consult appreciated. 4. Severe hyperkalemia secondary to acute kidney injury. Patient is currently on bicarb drip and status post dextrose, insulin, calcium. 5. Metabolic acidosis secondary to acute kidney injury and respiratory failure. Continue bicarb drip. Recheck CPK. 6. Shock liver with elevated liver function test secondary to hypoperfusion. Hold atorvastatin. Continue to monitor liver tests. Daily hepatitis panel ordered. 7. Troponin elevation likely due to acute on chronic kidney failure. Cardiology consult appreciated. 8. Thrombocytopenia secondary to acute illness. Continue to monitor. 9. Chronic kidney disease stage III. 10. COPD, stable. 11. Hypertension. Continue Lopressor 50 mg twice daily, hydralazine 10 mg IV push every 6 hours as needed. 12. Hyperlipidemia. Hold Lipitor. 13. Diabetes mellitus type 2. Continue NovoLog scale before meals and at bedtime. Hold Actos 30 mg daily. 14. Tobacco use and dependence. Smoking cessation. 15. Gastroesophageal reflux disease. Protonix 40 mg IV daily. 16. Diabetic neuropathy. Hold gabapentin. Patient put on low dose of Dilaudid if needed for pain. 17. Recurrent depression. Continue nortriptyline 25 mg daily. 18. DVT prophylaxis. Continue heparin 5000 units subcu every 8 hours. CODE STATUS: Full code Patient will be admitted to the hospital for a minimum of 2 night stay. DISCHARGE PLAN TBD. Impression and plan of care have been directed as dictated by the signing physician. Kathe North nurse practitioner acting as scribe for signing physician. Past Medical History Past Medical History: COPD, Diabetes Mellitus, Eye Disorder, GERD/Reflux, Hyperlipidemia, Hypertension, Osteoarthritis (OA) Additional Past Medical History / Comment(s): spondolysis, , blurry vision & eye problems ?related to diabetes History of Any Multi-Drug Resistant Organisms: None Reported Past Surgical History: Back Surgery, Hysterectomy, Orthopedic Surgery Additional Past Surgical History / Comment(s): RT shoulder surgery, LT arthroscopy knee. COLONOSCOPY. BACK SX X 2 Past Anesthesia/Blood Transfusion Reactions: No Reported Reaction Past Psychological History: No Psychological Hx Reported Smoking Status: Former smoker Past Alcohol Use History: Rare Additional Past Alcohol Use History / Comment(s): pt. smokes 2 cigs/week, has smoked since age of 12 Past Drug Use History: None Reported - Past Family History Mother Family Medical History: No Reported History Medications and Allergies Home Medications Medication Instructions Recorded Confirmed Type HYDROcodone/APAP 10-325MG [[place] 1 tab PO Q6HR PRN 05/21/15 10/16/20 History 10-325] Albuterol Sulfate [Proair Hfa] 1 - 2 puff INHALATION RT-Q6H PRN 08/24/20 10/16/20 History Baclofen 10 mg PO BID 08/24/20 10/16/20 History Ergocalciferol [Vitamin D2 (1250 1,250 mcg PO MO 08/24/20 10/16/20 History Mcg = 60518 Iu)] Fenofibrate 160 mg PO DAILY 08/24/20 10/16/20 History INSULIN LISPRO (humaLOG) [humaLOG] See Protocol SQ AC-TID 08/24/20 10/16/20 History Insulin Glargine [Lantus] See Protocol SQ HS 08/24/20 10/16/20 History Loratadine [Claritin] 10 mg PO DAILY 08/24/20 10/16/20 History Montelukast [Singulair] 10 mg PO HS 08/24/20 10/16/20 History Nortriptyline [Pamelor] 25 mg PO DAILY 08/24/20 10/16/20 History Pioglitazone [Actos] 30 mg PO DAILY 08/24/20 10/16/20 History Polyethylene Glycol 3350 [Miralax] 17 gm PO DAILY PRN 08/24/20 10/16/20 History Sennosides-Docusate Sodium 1 tab PO BID 08/24/20 10/16/20 History [Senokot-S] Triamcinolone 0.025% Cream 1 applic TOPICAL DAILY PRN 08/24/20 10/16/20 History [Kenalog 0.025% Cream] cloNIDine HCL [Catapres] 0.1 mg PO TID 08/24/20 10/16/20 History hydrALAZINE HCL 50 mg PO Q12H 08/24/20 10/16/20 History Aspirin 81 mg PO DAILY chew 08/29/20 10/16/20 Rx Atorvastatin [Lipitor] 40 mg PO HS #30 tab 08/29/20 10/16/20 Rx Furosemide [Lasix] 40 mg PO BID #60 tablet 08/29/20 10/16/20 Rx Losartan [Cozaar] 50 mg PO DAILY #30 tab 08/29/20 10/16/20 Rx Metoprolol Tartrate [Lopressor] 50 mg PO BID #60 tab 08/29/20 10/16/20 Rx Allergies Allergy/AdvReac Type Severity Reaction Status Date / Time amoxicillin [Amoxicillin] Allergy Rash/Hives Verified 10/16/20 17:19 latanoprost AdvReac blurry Verified 10/16/20 17:19 vision prednisolone AdvReac Swelling Verified 10/16/20 17:19 steroids AdvReac affected Uncoded 10/12/20 15:10 eyes Physical Exam Vitals: Vital Signs Temp Pulse Resp BP Pulse Ox 10/17/20 09:00 86 10 L 141/80 100 10/17/20 08:00 98.4 F 82 11 L 132/82 99 10/17/20 07:00 86 11 L 144/83 99 10/17/20 06:00 89 12 149/71 99 10/17/20 05:00 86 10 L 150/79 99 10/17/20 04:00 85 12 144/86 99 10/17/20 03:00 80 10 L 145/80 100 10/17/20 02:00 87 12 141/81 99 10/17/20 01:00 80 13 153/84 99 10/17/20 00:00 97.6 F 84 16 133/78 99 10/16/20 22:34 98.0 F 81 18 146/88 99 10/16/20 22:00 77 10 L 150/98 100 10/16/20 21:00 82 17 145/95 100 10/16/20 20:00 78 16 150/93 100 10/16/20 19:00 78 18 155/94 100 10/16/20 18:48 82 23 10/16/20 18:27 79 24 10/16/20 18:17 76 18 155/94 98 10/16/20 18:00 80 16 175/99 100 10/16/20 17:00 76 18 145/81 100 10/16/20 16:48 81 18 192/165 99 10/16/20 16:02 18 10/16/20 15:56 97.6 F 79 18 152/104 96 Intake and Output 10/16/20 10/17/20 10/17/20 22:59 06:59 14:59 Intake Total 175 Output Total 20 96 123 Balance -20 -96 52 Intake: Intake, IV Titration 175 Amount Dextrose 5% in Water 1, 175 000 ml @ 100 mls/hr IV . [id number] [id number] with Sodium Bicarb (1 Meq/ml) 150 ml Rx#:[id number] Output: Urine 20 96 123 Other: Voiding Method Indwelling Catheter # Bowel Movements 1 Weight 99.79 kg 110 kg Results CBC & Chem 7: 10/17/20 03:18 10/17/20 07:49 Labs: Abnormal Lab Results - Last 24 Hours (Table) 10/16/20 10/16/20 10/16/20 Range/Units 16:15 16:23 16:23 MCH 22.7 L (25.0-35.0) pg MCHC 27.5 L (31.0-37.0) g/dL RDW 17.8 H (11.5-15.5) % Plt Count 130 L D (150-450) k/uL Neutrophils # (Manual) (1.3-7.7) k/uL Lymphocytes # (Manual) 0.23 L (1.0-4.8) k/uL Nucleated RBCs 2 H (0-0) /100 WBC PT 13.4 H (9.0-12.0) sec INR 1.3 H (<1.2) APTT 21.2 L (22.0-30.0) sec D-Dimer (<0.60) mg/L FEU ABG pH (7.35-7.45) ABG pCO2 (35-45) mmHg ABG pO2 (83-108) mmHg ABG HCO3 (21-25) mmol/L ABG Total CO2 (19-24) mmol/L ABG O2 Saturation (94-97) % VBG pH (7.31-7.41) VBG pCO2 (37-51) mmHg VBG HCO3 (24-28) mmol/L Potassium (3.5-5.1) mmol/L Chloride (98-107) mmol/L Carbon Dioxide (22-30) mmol/L BUN (7-17) mg/dL Creatinine (0.52-1.04) mg/dL Glucose (74-99) mg/dL POC Glucose (mg/dL) 134 H (75-99) mg/dL Magnesium (1.6-2.3) mg/dL AST (14-36) U/L ALT (4-34) U/L Creatine Kinase (30-135) U/L Troponin I (0.000-0.034) ng/mL Total Protein (6.3-8.2) g/dL Albumin (3.5-5.0) g/dL Urine Appearance (Clear) Urine Protein (Negative) Amorphous Sediment (None) /hpf Urine Bacteria (None) /hpf Hyaline Casts (0-2) /lpf Urine Mucus (None) /hpf 10/16/20 10/16/20 10/16/20 Range/Units 16:23 16:23 16:23 MCH (25.0-35.0) pg MCHC (31.0-37.0) g/dL RDW (11.5-15.5) % Plt Count (150-450) k/uL Neutrophils # (Manual) (1.3-7.7) k/uL Lymphocytes # (Manual) (1.0-4.8) k/uL Nucleated RBCs (0-0) /100 WBC PT (9.0-12.0) sec INR (<1.2) APTT (22.0-30.0) sec D-Dimer (<0.60) mg/L FEU ABG pH (7.35-7.45) ABG pCO2 (35-45) mmHg ABG pO2 (83-108) mmHg ABG HCO3 (21-25) mmol/L ABG Total CO2 (19-24) mmol/L ABG O2 Saturation (94-97) % VBG pH (7.31-7.41) VBG pCO2 (37-51) mmHg VBG HCO3 (24-28) mmol/L Potassium 7.2 H* (3.5-5.1) mmol/L Chloride (98-107) mmol/L Carbon Dioxide (22-30) mmol/L BUN 71 H (7-17) mg/dL Creatinine 3.56 H (0.52-1.04) mg/dL Glucose 135 H (74-99) mg/dL POC Glucose (mg/dL) (75-99) mg/dL Magnesium (1.6-2.3) mg/dL AST 6442 H (14-36) U/L ALT 2889 H (4-34) U/L Creatine Kinase 476 H (30-135) U/L Troponin I 2.160 H* (0.000-0.034) ng/mL Total Protein (6.3-8.2) g/dL Albumin (3.5-5.0) g/dL Urine Appearance Cloudy H (Clear) Urine Protein 3+ H (Negative) Amorphous Sediment Rare H (None) /hpf Urine Bacteria Rare H (None) /hpf Hyaline Casts 7 H (0-2) /lpf Urine Mucus Rare H (None) /hpf 10/16/20 10/16/20 10/16/20 Range/Units 16:23 16:23 19:54 MCH 22.7 L (25.0-35.0) pg MCHC 27.4 L (31.0-37.0) g/dL RDW 17.8 H (11.5-15.5) % Plt Count 121 L (150-450) k/uL Neutrophils # (Manual) (1.3-7.7) k/uL Lymphocytes # (Manual) 0.39 L (1.0-4.8) k/uL Nucleated RBCs 6 H (0-0) /100 WBC PT (9.0-12.0) sec INR (<1.2) APTT (22.0-30.0) sec D-Dimer 9.73 H (<0.60) mg/L FEU ABG pH (7.35-7.45) ABG pCO2 (35-45) mmHg ABG pO2 (83-108) mmHg ABG HCO3 (21-25) mmol/L ABG Total CO2 (19-24) mmol/L ABG O2 Saturation (94-97) % VBG pH 7.24 L (7.31-7.41) VBG pCO2 70 H* (37-51) mmHg VBG HCO3 30 H (24-28) mmol/L Potassium (3.5-5.1) mmol/L Chloride (98-107) mmol/L Carbon Dioxide (22-30) mmol/L BUN (7-17) mg/dL Creatinine (0.52-1.04) mg/dL Glucose (74-99) mg/dL POC Glucose (mg/dL) (75-99) mg/dL Magnesium (1.6-2.3) mg/dL AST (14-36) U/L ALT (4-34) U/L Creatine Kinase (30-135) U/L Troponin I (0.000-0.034) ng/mL Total Protein (6.3-8.2) g/dL Albumin (3.5-5.0) g/dL Urine Appearance (Clear) Urine Protein (Negative) Amorphous Sediment (None) /hpf Urine Bacteria (None) /hpf Hyaline Casts (0-2) /lpf Urine Mucus (None) /hpf 10/16/20 10/16/20 10/16/20 Range/Units 19:54 22:29 23:39 MCH (25.0-35.0) pg MCHC (31.0-37.0) g/dL RDW (11.5-15.5) % Plt Count (150-450) k/uL Neutrophils # (Manual) (1.3-7.7) k/uL Lymphocytes # (Manual) (1.0-4.8) k/uL Nucleated RBCs (0-0) /100 WBC PT (9.0-12.0) sec INR (<1.2) APTT (22.0-30.0) sec D-Dimer (<0.60) mg/L FEU ABG pH (7.35-7.45) ABG pCO2 (35-45) mmHg ABG pO2 (83-108) mmHg ABG HCO3 (21-25) mmol/L ABG Total CO2 (19-24) mmol/L ABG O2 Saturation (94-97) % VBG pH (7.31-7.41) VBG pCO2 (37-51) mmHg VBG HCO3 (24-28) mmol/L Potassium 6.3 H* 6.5 H* (3.5-5.1) mmol/L Chloride (98-107) mmol/L Carbon Dioxide 32 H 35 H (22-30) mmol/L BUN 71 H 72 H (7-17) mg/dL Creatinine 3.82 H 4.01 H (0.52-1.04) mg/dL Glucose 116 H 107 H (74-99) mg/dL POC Glucose (mg/dL) 111 H (75-99) mg/dL Magnesium (1.6-2.3) mg/dL AST (14-36) U/L ALT (4-34) U/L Creatine Kinase (30-135) U/L Troponin I (0.000-0.034) ng/mL Total Protein (6.3-8.2) g/dL Albumin (3.5-5.0) g/dL Urine Appearance (Clear) Urine Protein (Negative) Amorphous Sediment (None) /hpf Urine Bacteria (None) /hpf Hyaline Casts (0-2) /lpf Urine Mucus (None) /hpf 10/17/20 10/17/20 10/17/20 Range/Units 03:18 03:18 06:08 MCH 22.5 L (25.0-35.0) pg MCHC 26.9 L (31.0-37.0) g/dL RDW 17.8 H (11.5-15.5) % Plt Count 115 L (150-450) k/uL Neutrophils # (Manual) 7.90 H (1.3-7.7) k/uL Lymphocytes # (Manual) 0.52 L (1.0-4.8) k/uL Nucleated RBCs 4 H (0-0) /100 WBC PT (9.0-12.0) sec INR (<1.2) APTT (22.0-30.0) sec D-Dimer (<0.60) mg/L FEU ABG pH 7.21 L (7.35-7.45) ABG pCO2 82 H* (35-45) mmHg ABG pO2 157 H (83-108) mmHg ABG HCO3 33 H (21-25) mmol/L ABG Total CO2 35 H (19-24) mmol/L ABG O2 Saturation 99.0 H (94-97) % VBG pH (7.31-7.41) VBG pCO2 (37-51) mmHg VBG HCO3 (24-28) mmol/L Potassium 6.6 H* (3.5-5.1) mmol/L Chloride 109 H (98-107) mmol/L Carbon Dioxide (22-30) mmol/L BUN 74 H (7-17) mg/dL Creatinine 3.72 H (0.52-1.04) mg/dL Glucose 104 H (74-99) mg/dL POC Glucose (mg/dL) (75-99) mg/dL Magnesium 2.8 H (1.6-2.3) mg/dL AST 4438 H (14-36) U/L ALT 2240 H (4-34) U/L Creatine Kinase (30-135) U/L Troponin I (0.000-0.034) ng/mL Total Protein 6.1 L (6.3-8.2) g/dL Albumin 3.3 L (3.5-5.0) g/dL Urine Appearance (Clear) Urine Protein (Negative) Amorphous Sediment (None) /hpf Urine Bacteria (None) /hpf Hyaline Casts (0-2) /lpf Urine Mucus (None) /hpf 10/17/20 Range/Units 07:49 MCH (25.0-35.0) pg MCHC (31.0-37.0) g/dL RDW (11.5-15.5) % Plt Count (150-450) k/uL Neutrophils # (Manual) (1.3-7.7) k/uL Lymphocytes # (Manual) (1.0-4.8) k/uL Nucleated RBCs (0-0) /100 WBC PT (9.0-12.0) sec INR (<1.2) APTT (22.0-30.0) sec D-Dimer (<0.60) mg/L FEU ABG pH (7.35-7.45) ABG pCO2 (35-45) mmHg ABG pO2 (83-108) mmHg ABG HCO3 (21-25) mmol/L ABG Total CO2 (19-24) mmol/L ABG O2 Saturation (94-97) % VBG pH (7.31-7.41) VBG pCO2 (37-51) mmHg VBG HCO3 (24-28) mmol/L Potassium 6.7 H* (3.5-5.1) mmol/L Chloride (98-107) mmol/L Carbon Dioxide (22-30) mmol/L BUN (7-17) mg/dL Creatinine (0.52-1.04) mg/dL Glucose (74-99) mg/dL POC Glucose (mg/dL) (75-99) mg/dL Magnesium (1.6-2.3) mg/dL AST (14-36) U/L ALT (4-34) U/L Creatine Kinase (30-135) U/L Troponin I (0.000-0.034) ng/mL Total Protein (6.3-8.2) g/dL Albumin (3.5-5.0) g/dL Urine Appearance (Clear) Urine Protein (Negative) Amorphous Sediment (None) /hpf Urine Bacteria (None) /hpf Hyaline Casts (0-2) /lpf Urine Mucus (None) /hpf Thrombosis Risk Factor Assmnt - Choose All That Apply Each Factor Represents 1 point: Abnormal pulmonary function (COPD), Heart failure (<1month), Obesity (BMI >25) Each Risk Factor Represents 2 Points: Age 61-74 years Thrombosis Risk Factor Assessment Total Risk Factor Score: 5 Thrombosis Risk Factor Assessment Level: High Risk
[2020-10-17 11:27] LABS: Calcium 8.4 mg/dL (8.4-10.2); Potassium 5.5 mmol/L (3.5-5.1)
[2020-10-17 11:31] LABS: Glucose,Whole Blood 79 mg/dL (75-99)
[2020-10-17 12:49] LABS: Amphetamine Screen,Urine Not Detected (NotDetected); Barbiturate Screen,Urine Not Detected (NotDetected); Benzodiazepines Screen,Urine Not Detected (NotDetected); Cocaine Screen,Urine Not Detected (NotDetected); Methadone Screen, Urine Not Detected (NotDetected); Opiate Screen,Urine Not Detected (NotDetected); Oxycodone Screen, Urine Not Detected (NotDetected); Phencyclidine Screen,Urine Not Detected (NotDetected); Tricyclic Antidepressant,Urine Detected (NotDetected); Urn Cannabinoid Scrn Not Detected (NotDetected)
[2020-10-17] MEDS: DEXTROSE 5% IN WATER 1,000 ML with SODIUM BICARB (1 MEQ/ML) 100 ML IV SCH (13:48)
--- NOTE | 2020-10-17 15:13 | CONS ---
CONSULTATION REASON FOR CONSULT: Hyperkalemia history. HISTORY OF PRESENT ILLNESS: Patient is a 60-year-old female who was admitted to the hospital on 10/16/2020 with complaints of shortness of breath, not feeling well and altered mentation. The patient was recently hospitalized for acute exacerbation of diastolic congestive heart failure and discharged on 08/29/2020. The patient is COVID-19 PCR negative. She was noticed to have a creatinine of 3.5 mg/dL yesterday and it increased to 4.0. Today it is at 3.7-3.9 mg/dL. Previous creatinine was 1.9 on 08/29/2020 at the time of discharge. Patient is currently hypertensive. Blood pressure has not been low. Her potassium was 7.2 on initial admission and patient had poor urine output. CAT scan shows evidence of pleural effusions and generalized volume overload. The patient did receive 80 mg of Lasix last night. It appears that her urine output has picked up. PAST MEDICAL HISTORY: Diastolic CHF, hypertension, obesity, COPD, spondylolysis, type 2 diabetes. PAST SURGICAL HISTORY: Hysterectomy, right shoulder surgery, left knee arthroscopy, colonoscopy, back surgery. SOCIAL HISTORY: Patient is a former smoker. No history of drug abuse or alcohol abuse. MEDICATIONS: Medications prior to admission included [place], albuterol, baclofen, vitamin D, insulin, Claritin, Singulair, Pamelor, Actos, MiraLAX, Senokot, clonidine, hydralazine, Lipitor, Lasix, Cozaar, Lopressor. ALLERGIES: Allergies include STEROIDS, LATANOPROST, AMOXICILLIN causes rash and hives. PHYSICAL EXAMINATION: Patient is currently awake and mentation has improved. She answers questions appropriately. She is maintained on BiPAP. This morning blood pressure was 123/64, heart rate 92 per minute. She is afebrile. Maintained on BiPAP Lungs show decreased breath sounds at bases. Heart S1 ans S2 Abdomen is obese, soft, nontender Exam of lower extremities shows 1+ edema bilaterally [employer] SERVICE HEL[employer] exam shows pt is moving all 4 extremities. She is following commands. LABS: Labs show sodium 149, potassium 5.5, CO2 is 36, chloride 108, BUN 77, serum creatinine 3.9. ASSESSMENT: 1. Acute kidney injury, acute tubular necrosis, Oliguric, with some improvement in UOP. U/A shows3+ protein. The patient most likely has underlying diabetic nephropathy. 2. Chronic kidney disease secondary to diabetic kidney disease. Previous creatinine as low as 1.3 and 0.9 in 2018; however in August of 2020, creatinine has been mostly around 1.6-1.9 mg/dL. 3. Hypernatremia. Will change IV fluids to slightly hypotonic fluid. 4. Hyperkalemia associated with acute kidney injury currently improved 5. Acute hypoxic respiratory failure multifactorial including congestive heart failure, volume overload,COPD PLAN Change IVF to 2 amps of bicarb instead of 3 amps, repeat potassium later on today. As long as the urine output is maintained and serum potassium continues to improve, we can hold off on dialysis for now. Thank you for this consultation. We will continue to follow the patient with you during her hospitalization. JOSÉ MANUEL / MOLLYN: [id number] / [email or web address]
[2020-10-17] MEDS ORDERED: DEXTROSE 50% SYRINGE 50 ML IVP ONE (15:43)
[2020-10-17 15:57] LABS: Glucose,Whole Blood 22 mg/dL (75-99)
[2020-10-17 15:57] LABS: Glucose,Whole Blood 29 mg/dL (75-99)
[2020-10-17 16:02] LABS: Glucose,Whole Blood 92 mg/dL (75-99)
[2020-10-17 18:32] LABS: Hepatitis A Antibody IgM Non-Reactive (Non-Reactive); Hepatitis B Core IgM Non-Reactive (Non-Reactive); Hepatitis B Surface Antigen Non-Reactive (Non-Reactive); Hepatitis C IgG Antibody Non-Reactive (Non-Reactive)
[2020-10-17 19:05] LABS: Calcium 8.3 mg/dL (8.4-10.2); Potassium 5.5 mmol/L (3.5-5.1)
[2020-10-17 19:24] LABS: Glucose,Whole Blood 48 mg/dL (75-99)
[2020-10-17 19:33] LABS: Glucose,Whole Blood 55 mg/dL (75-99)
[2020-10-17 19:47] LABS: Glucose,Whole Blood 120 mg/dL (75-99)
[2020-10-17] MEDS: MELATONIN 3 MG TABLET PO SCH (21:55)
[2020-10-17] MEDS: MONTELUKAST 10 MG TAB PO SCH (21:55)
[2020-10-17 22:01] LABS: Glucose,Whole Blood 109 mg/dL (75-99)
[2020-10-17 23:25] LABS: Glucose,Whole Blood 81 mg/dL (75-99)
[2020-10-18] MEDS: DEXTROSE 5% IN WATER 1,000 ML with SODIUM BICARB (1 MEQ/ML) 100 ML IV SCH (00:33)
[2020-10-18] MEDS: HEPARIN SODIUM,PORCINE/PF 5,000 UNIT/0.5 ML SYRINGE SQ SCH ×2 (00:33→21:39)
[2020-10-18 00:41] LABS: Glucose,Whole Blood 225 mg/dL (75-99)
[2020-10-18 03:05] LABS: Hepatitis B Surface AB- Quant 3.5 mIU/mL; Hepatitis B Surface Antibody Non-Reactive (Non-Reactive); Hepatitis B Surface Antigen Non-Reactive (Non-Reactive)
[2020-10-18 04:41] LABS: Anisocytosis Slight; Basophils % (A) 0 %; Eosinophils % (A) 1 %; HCT 40.4 % (34.0-46.0); HGB 11.7 gm/dL (11.4-16.0); Hypochromasia Marked; Lymphocytes % (A) 15 %; MCH 23.6 pg (25.0-35.0); MCHC 28.8 g/dL (31.0-37.0); MCV 81.7 fL (80.0-100.0); Mean Platelet Volume 8.1; Microcytosis Slight; Monocytes # (A) 0.3 k/uL (0-1.0); Monocytes % (A) 5 %; Neutrophils # (A) 4.9 k/uL (1.3-7.7); Neutrophils % (A) 77 %; Poikilocytosis Moderate; RBC 4.94 m/uL (3.80-5.40); RDW 17.8 % (11.5-15.5); WBC 6.3 k/uL (3.8-10.6)
[2020-10-18 04:42] LABS: Platelet Count 96 k/uL (150-450)
[2020-10-18 04:50] LABS: Albumin 2.9 g/dL (3.5-5.0); Potassium 5.5 mmol/L (3.5-5.1); Total Bilirubin 0.6 mg/dL (0.2-1.3); Total Protein 5.4 g/dL (6.3-8.2)
[2020-10-18 05:34] LABS: Glucose,Whole Blood 531 mg/dL (75-99)
[2020-10-18 05:36] LABS: Glucose,Whole Blood 200 mg/dL (75-99)
[2020-10-18] MEDS: INSULIN ASPART (NovoLOG) 100 UNIT/ML VIAL SQ SCH ×4 (06:16→20:22)
[2020-10-18] MEDS ORDERED: HEPARIN SODIUM 1,000 UN/ML (10ML VL) IV PRN (07:43)
[2020-10-18] MEDS ORDERED: HEPARIN SOD,PORK IN 0.45% NACL 25,000 UNIT in 0.45% NACL 1 250ML.BAG IV SCH (08:00)
[2020-10-18] MEDS ORDERED: HEPARIN SODIUM 1,000 UN/ML (10ML VL) IV ONE (08:00)
[2020-10-18 08:24] LABS: Anisocytosis Slight; Basophils # (A) 0.1 k/uL (0-0.2); Basophils % (A) 1 %; Eosinophils # (A) 0.1 k/uL (0-0.7); Eosinophils % (A) 1 %; HCT 39.1 % (34.0-46.0); HGB 11.5 gm/dL (11.4-16.0); Hypochromasia Marked; Lymphocytes # (A) 0.8 k/uL (1.0-4.8); Lymphocytes % (A) 14 %; MCH 23.8 pg (25.0-35.0); MCHC 29.4 g/dL (31.0-37.0); MCV 80.8 fL (80.0-100.0); Microcytosis Slight; Monocytes # (A) 0.3 k/uL (0-1.0); Monocytes % (A) 5 %; Neutrophils # (A) 4.4 k/uL (1.3-7.7); Neutrophils % (A) 78 %; Poikilocytosis Moderate; RBC 4.84 m/uL (3.80-5.40); RDW 17.7 % (11.5-15.5); WBC 5.6 k/uL (3.8-10.6)
[2020-10-18 08:31] LABS: Platelet Count 93 k/uL (150-450)
[2020-10-18 08:35] LABS: INR 1.2 (<1.2); Partial Thromboplastin Time 26.2 sec (22.0-30.0); Prothrombin Time 12.7 sec (9.0-12.0)
--- NOTE | 2020-10-18 08:36 | XR ---
EXAMINATION TYPE: XR chest 1V DATE OF EXAM: 10/18/2020 CLINICAL HISTORY: CHF. TECHNIQUE: Portable frontal view of the chest. COMPARISON: 10/17/2020 FINDINGS: Unchanged cardiomegaly, perihilar and bibasilar airspace opacities, and left pleural effusi on. There is increased small pleural effusion at the right lung base. No pneumothorax. IMPRESSION: Findings suggestive of CHF, with increased small right pleural effusion versus 10/17/2020.
--- NOTE | 2020-10-18 08:56 | P.PN ---
Subjective HISTORY OF PRESENTING ILLNESS This is a pleasant 60-year-old -[place] female past medical history significant for hypertension, dyslipidemia, diabetes mellitus, COPD and former nicotine. He does not follow regularly in the office with a gis scientist. In [address] Khan secondary to an abnormal stress test prompting cardiac catheterization which revealed normal coronary arteries. We have been asked to see in consultation for elevated troponin. Was brought to the hospital after her daughter was unable to get all of her for 3 days. She was found at home to have altered mental status and shortness of breath. On arrival to the emergency department pulse ox was 84% on room air. She states she has not been eating or drinking any fluids due to poor appetite over the previous few days. She is seen and examined sitting up on BiPAP in the intensive care unit. She has no symptoms of chest discomfort. She states her breathing seems to have improved since admission. She has no dizziness or palpitations. Nephrology and p ulmonary are also following. She seems to be profoundly dehydrated with acute kidney injury and hyperkalemia. Most recent echocardiogram obtained August 2020 revealed preserved LV systolic function with ejection fraction 55-60%. 10/18/2020 Pt seen and examined sitting up in bed, breathing is improved from yesterday. She is no longer requiring bipap. Echocardiogram obtained revealed preserved LV systolic function with EF 55-60%, severely enlarged RV consistent with RV overload, moderate TR, severe PH with RVSP 69 mmHg and trivial pericardial effusion. Blood pressure 105/62 heart rate 89 afebrile and maintaining oxygen saturation on nasal cannula. laboratory data reviewed, WBC 5.6, hemoglobin 11.5, platelets 93,sodium 145, potassium 5.5, creatinine 3.92, troponin 1.56 and liver enzymes improving. PHYSICAL EXAMINATION CONSTITUTIONAL: No apparent distress. HEENT: Head is normocephalic. Pupils are equal, round. Sclerae anicteric. Mucous membranes of the mouth are moist. No JVD. No carotid bruit. CHEST EXAMINATION: Lungs are clear to auscultation. No chest wall tenderness is noted on palpation or with deep breathing. Diminished bilaterally. HEART EXAMINATION: Regular rate and rhythm. S1, S2 heard. No murmurs, gallops or rub. EXTREMITIES: 2+ peripheral pulses, 3+ bilateral lower extremity pitting edema and no calf tenderness. ASSESSMENT Hyperkalemia Dehydration secondary to prerenal azotemia Thrombocytopenia Hypercapnic respiratory failure Altered mental status Acute on chronic kidney disease Transaminitis Troponin elevation is not related to primary myocardial injury Hypertension Dyslipidemia Diabetes mellitus COPD PLAN Initiate heparin infusion for probable PE given her elevated troponin and d- dimer with presence of RV strain on echo. This is a significant change in her echo from 08/2020. Obtain VQ scan. Further recommendations to follow based on clinical course. Nurse Practitioner note has been reviewed, I agree with a documented findings and plan of care. Patient was seen and examined. Objective - Vital Signs Vital signs: Vital Signs Temp 97.9 F 10/18/20 04:00 Pulse 89 10/18/20 07:00 Resp 17 10/18/20 07:00 BP 105/62 10/18/20 07:00 Pulse Ox 93 L 10/18/20 07:00 Intake & Output 10/17/20 10/18/20 10/18/20 18:59 06:59 18:59 Intake Total 1150 1400 Output Total 528 710 Balance 622 690 Weight 117.7 kg Intake: IV 600 1200 Dextrose 5% in Water 1, 600 1200 000 ml @ 100 mls/hr IV . Q11H SIERRA with Sodium Bicarb (1 Meq/ml) 100 ml Rx#:[id number] Intake, IV Titration 550 Amount Dextrose 5% in Water 1, 550 000 ml @ 100 mls/hr IV . [id number] SIERRA with Sodium Bicarb (1 Meq/ml) 150 ml Rx#:[id number] Oral 200 Output: Urine 528 710 Other: Voiding Method Indwelling Catheter Indwelling Catheter - Labs CBC & Chem 7: 10/18/20 08:03 10/18/20 03:35 Labs: Abnormal Lab Results - Last 24 Hours (Table) 10/16/20 10/17/20 10/17/20 Range/Units 16:23 10:47 10:58 MCH (25.0-35.0) pg MCHC (31.0-37.0) g/dL RDW (11.5-15.5) % Plt Count (150-450) k/uL Lymphocytes # (1.0-4.8) k/uL PT (9.0-12.0) sec INR (<1.2) Sodium 149 H (137-145) mmol/L Potassium 5.5 H (3.5-5.1) mmol/L Chloride 108 H (98-107) mmol/L Carbon Dioxide 36 H (22-30) mmol/L BUN 77 H (7-17) mg/dL Creatinine 3.96 H (0.52-1.04) mg/dL Glucose 66 L (74-99) mg/dL POC Glucose (mg/dL) 107 H (75-99) mg/dL Calcium (8.4-10.2) mg/dL AST (14-36) U/L ALT (4-34) U/L Creatine Kinase (30-135) U/L Troponin I (0.000-0.034) ng/mL Total Protein (6.3-8.2) g/dL Albumin (3.5-5.0) g/dL U Tricyclic Antidepress Detected H (NotDetected) 10/17/20 10/17/20 10/17/20 Range/Units 15:43 15:44 18:30 MCH (25.0-35.0) pg MCHC (31.0-37.0) g/dL RDW (11.5-15.5) % Plt Count (150-450) k/uL Lymphocytes # (1.0-4.8) k/uL PT (9.0-12.0) sec INR (<1.2) Sodium 146 H (137-145) mmol/L Potassium 5.5 H (3.5-5.1) mmol/L Chloride (98-107) mmol/L Carbon Dioxide 33 H (22-30) mmol/L BUN 78 H (7-17) mg/dL Creatinine 3.63 H (0.52-1.04) mg/dL Glucose 28 L* (74-99) mg/dL POC Glucose (mg/dL) 22 L 29 L (75-99) mg/dL Calcium 8.3 L (8.4-10.2) mg/dL AST (14-36) U/L ALT (4-34) U/L Creatine Kinase (30-135) U/L Troponin I (0.000-0.034) ng/mL Total Protein (6.3-8.2) g/dL Albumin (3.5-5.0) g/dL U Tricyclic Antidepress (NotDetected) 10/17/20 10/17/20 10/17/20 Range/Units 19:17 19:32 19:45 MCH (25.0-35.0) pg MCHC (31.0-37.0) g/dL RDW (11.5-15.5) % Plt Count (150-450) k/uL Lymphocytes # (1.0-4.8) k/uL PT (9.0-12.0) sec INR (<1.2) Sodium (137-145) mmol/L Potassium (3.5-5.1) mmol/L Chloride (98-107) mmol/L Carbon Dioxide (22-30) mmol/L BUN (7-17) mg/dL Creatinine (0.52-1.04) mg/dL Glucose (74-99) mg/dL POC Glucose (mg/dL) 48 L 55 L 120 H (75-99) mg/dL Calcium (8.4-10.2) mg/dL AST (14-36) U/L ALT (4-34) U/L Creatine Kinase (30-135) U/L Troponin I (0.000-0.034) ng/mL Total Protein (6.3-8.2) g/dL Albumin (3.5-5.0) g/dL U Tricyclic Antidepress (NotDetected) 10/17/20 10/18/20 10/18/20 Range/Units 22:00 00:38 00:48 MCH (25.0-35.0) pg MCHC (31.0-37.0) g/dL RDW (11.5-15.5) % Plt Count (150-450) k/uL Lymphocytes # (1.0-4.8) k/uL PT (9.0-12.0) sec INR (<1.2) Sodium (137-145) mmol/L Potassium (3.5-5.1) mmol/L Chloride (98-107) mmol/L Carbon Dioxide (22-30) mmol/L BUN (7-17) mg/dL Creatinine (0.52-1.04) mg/dL Glucose (74-99) mg/dL POC Glucose (mg/dL) 109 H 225 H (75-99) mg/dL Calcium (8.4-10.2) mg/dL AST (14-36) U/L ALT (4-34) U/L Creatine Kinase (30-135) U/L Troponin I 1.610 H* (0.000-0.034) ng/mL Total Protein (6.3-8.2) g/dL Albumin (3.5-5.0) g/dL U Tricyclic Antidepress (NotDetected) 10/18/20 10/18/20 10/18/20 Range/Units 03:35 03:35 03:35 MCH 23.6 L (25.0-35.0) pg MCHC 28.8 L (31.0-37.0) g/dL RDW 17.8 H (11.5-15.5) % Plt Count 96 L (150-450) k/uL Lymphocytes # (1.0-4.8) k/uL PT (9.0-12.0) sec INR (<1.2) Sodium (137-145) mmol/L Potassium 5.5 H (3.5-5.1) mmol/L Chloride (98-107) mmol/L Carbon Dioxide 37 H (22-30) mmol/L BUN 76 H (7-17) mg/dL Creatinine 3.92 H (0.52-1.04) mg/dL Glucose 47 L* (74-99) mg/dL POC Glucose (mg/dL) (75-99) mg/dL Calcium 8.0 L (8.4-10.2) mg/dL AST 1276 H (14-36) U/L ALT 1564 H (4-34) U/L Creatine Kinase 168 H (30-135) U/L Troponin I 1.560 H* (0.000-0.034) ng/mL Total Protein 5.4 L (6.3-8.2) g/dL Albumin 2.9 L (3.5-5.0) g/dL U Tricyclic Antidepress (NotDetected) 10/18/20 10/18/20 10/18/20 Range/Units 05:32 05:34 08:03 MCH 23.8 L (25.0-35.0) pg MCHC 29.4 L (31.0-37.0) g/dL RDW 17.7 H (11.5-15.5) % Plt Count 93 L (150-450) k/uL Lymphocytes # 0.8 L (1.0-4.8) k/uL PT (9.0-12.0) sec INR (<1.2) Sodium (137-145) mmol/L Potassium (3.5-5.1) mmol/L Chloride (98-107) mmol/L Carbon Dioxide (22-30) mmol/L BUN (7-17) mg/dL Creatinine (0.52-1.04) mg/dL Glucose (74-99) mg/dL POC Glucose (mg/dL) 531 H 200 H (75-99) mg/dL Calcium (8.4-10.2) mg/dL AST (14-36) U/L ALT (4-34) U/L Creatine Kinase (30-135) U/L Troponin I (0.000-0.034) ng/mL Total Protein (6.3-8.2) g/dL Albumin (3.5-5.0) g/dL U Tricyclic Antidepress (NotDetected) 10/18/20 Range/Units 08:03 MCH (25.0-35.0) pg MCHC (31.0-37.0) g/dL RDW (11.5-15.5) % Plt Count (150-450) k/uL Lymphocytes # (1.0-4.8) k/uL PT 12.7 H (9.0-12.0) sec INR 1.2 H (<1.2) Sodium (137-145) mmol/L Potassium (3.5-5.1) mmol/L Chloride (98-107) mmol/L Carbon Dioxide (22-30) mmol/L BUN (7-17) mg/dL Creatinine (0.52-1.04) mg/dL Glucose (74-99) mg/dL POC Glucose (mg/dL) (75-99) mg/dL Calcium (8.4-10.2) mg/dL AST (14-36) U/L ALT (4-34) U/L Creatine Kinase (30-135) U/L Troponin I (0.000-0.034) ng/mL Total Protein (6.3-8.2) g/dL Albumin (3.5-5.0) g/dL U Tricyclic Antidepress (NotDetected)
[2020-10-18] MEDS: NORTRIPTYLINE 25 MG CAP PO SCH (09:02)
[2020-10-18] MEDS: METOPROLOL TARTRATE 50 MG TAB PO SCH ×2 (09:02→21:34)
[2020-10-18] MEDS: ASPIRIN 81 MG PO SCH (09:02)
[2020-10-18] MEDS: SENNOSIDES-DOCUSATE SODIUM 1 EACH TAB PO SCH ×2 (09:02→21:35)
[2020-10-18] MEDS: PANTOPRAZOLE 40 MG/10 ML VIAL IV SCH (09:02)
[2020-10-18] MEDS: FUROSEMIDE 10 MG/ML 10 ML VIAL IV SCH ×3 (09:25→23:56)
--- NOTE | 2020-10-18 09:26 | P.PN ---
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 She was discharged home on oral Lasix 40 mg twice a day in addition to multiple other medications, she had troponin elevation during her last visit which was felt to be due to her abnormal renal function. Her echocardiogram from 08/24/2020 showed severe concentric LVH, with an EF between 55 and 60%, trace mitral regurg, right-sided pressures were normal at less than 35 mmHg. Patient was brought into the emergency department per EMS on oral 10/16/2020 with worsening shortness of breath, altered mental status, weakness, poor appetite over the past couple of days prior to admission. Patient's daughter went to her house to check on her mother and found her in rest or distress and poorly responsive, EMS arrived and patient's pulse ox was in the low 70s, chest x-ray in emergency department showed mild to moderate CHF with bibasilar opacities and probable trace left pleural effusion that was previously noted on her previous admission, brain CT showed no acute intracranial abnormality, EKG showed normal sinus rhythm, patient was placed on BiPAP support with pressures of 12 5 and FiO2 of 100%. Blood gas was obtained showing acute on chronic hypercapnic respiratory failure with pO2 of 157, pCO2 of 82, and pH of 7.21, the rest of the blood work was reviewed showing normal white count 7.6, hemoglobin of 12.1, platelet count was 1:30, d-dimer was 9.73, INR was 1.3, potassium was 7.2, BUN was 71, creatinine was 3.56, glucose was 135, no significant elevation of liver enzymes with AST of 6442, and ALT of 2889, troponin was elevated at 2.160. Urinalysis showed 3+ protein, but no clear evidence of urinary tract infection, patient was checked for influenza, RSV and now COVID-19 and was found to be negative. Serum alcohol level was less than 10, acetaminophen level was less than 10. Lactic acid was normal at 1.7. Hent was given Ancef sodium bicarbonate in the emergency department, hyperkalemia was treated with D50, regular insulin, she was given 30 g of Kayexalate in the emergency department. She appears to be generally fluid overloaded, with extensive edema in her lower extremities she was oliguric and she was given 80 mg of Lasix. Nephrology has been consulted. This morning she is more responsive, remains on BiPAP support with above-mentioned settings, she is able to provide simple answers, she any fever or chills, denied any chest pain, she did state that she was increasingly more short of breath and noted increasing lower extremity edema. She denies being oxygen dependent on a regular basis. Her pulse ox is 99%, she has remained afebrile through the night, blood pressures have been stable, she only produced 100 mL in urine output despite the Lasix challenge. This morning her chest x-ray is showing essentially stable findings of mild to moderate perihilar and bibasilar hazy opacities. Ultrasound of the abdomen was obtained showing questionable 2.4 cm right hepatic focus versus prominent pyramid, gallbladder wall appeared thickened with fluid seen adjacent to the gallbladder, common bile duct portion seen appeared within normal limits, kidneys with no evidence of hydronephrosis. CT of the abdomen and pelvis was obtained showing cardiomegaly with pleural eff usions and pulmonary basilar consolidation and atelectasis, ascites, subcutaneous edema no discrete liver mass was identified, kidneys were of normal size with no hydronephrosis, ureters were not dilated. There is no evidence of bowel obstruction, there were multiple sigmoid diverticula without any sign of diverticulitis. Follow-up blood work this morning shows a white blood cell count of 8.7, hemoglobin of 11.7, platelet count is 115, sodium of 144, potassium 6.6, chloride is 109, renal profile slightly improved, with B1 at 74, and creatinine of 3.72, AST is down to 4438, and ALT of 2240, alkaline phosphatase is within normal limits at 54. On 10/18/2020 patient seen in follow-up in intensive care unit, she is much more alert and responsive on today's exam. She is resting comfortably in bed, she is oriented to person, place and the month, the year, seems to be a bit inattentive, but overall mentation has significantly improved in the last 24 hours, tshe did go on BiPAP support last night sugars of 12/5 and FiO2 of 65%. She was switched over to high flow nasal cannula which is currently off the patient's face, removed it inadvertently, and her pulse ox right now is 86%. Does not seem to be in any acute distress, supplement oxygen was placed back on the patient's face and O2 sat did come up to 93%, lung sounds reveal diminished breath sounds at the bases, with bibasilar crackles. He remains significantly fluid overloaded, and she is actually positive fluid balance over the last 24 hours of 1.3 L. Has significant generalized edema including her bilateral lower extremities, abdomen, sacral area. However mentation is much improved, and she seems to breathing quite comfortably. Even several doses of IV Lasix yesterday, seen urine in order of 50-75 ML per hour. Is on 5% dextrose with 3 A of bicarbonate at a rate of 85 ML per hour. On today's labs are bicarbonate concentration is 37, potassium is 5.5, BUN of 76 and creatinine is 3.92. Her liver enzymes are trending down, AST is 1276, ALT is 1564, alkaline phosphatase is 67. Her troponins are trending down, from 2.160 on admission, to 1.610, and 1.560. D-dimer was elevated on admission, her lower extremity Dopplers did not show definite evidence of DVT. Cardiology is rounding and patient is being started on heparin infusion for possibility of pulmonary embolism, VQ scan per cardiology is pending. Last night patient was hypoglycemic, and she was given D50 IV push. Patient is now tolerating oral intake, and her appetite is fair she is consuming about 40-50% of her meal. Cardiogram showed preserved LV function with EF between 55-60%, severe enlargement of the right ventricle, with paradoxical motion of the right ventricular septum consistent with fluid overload or elevated right ventricular end-diastolic pressure, there was evidence of severe pulmonary hypertension with right-sided pressures of 69 mmHg. Inferior vena cava was dilated with poor inspiratory collapse estimated right atrial pressure of 20 mmHg Objective - Vital Signs Vital signs: Vital Signs Temp 97.9 F 10/18/20 04:00 Pulse 89 10/18/20 07:00 Resp 17 10/18/20 07:00 BP 105/62 10/18/20 07:00 Pulse Ox 93 L 10/18/20 07:00 Intake & Output 0510/18/20 10/18/20 18:59 06:59 18:59 Intake Total 1150 1400 Output Total 528 710 Balance 622 690 Weight 117.7 kg Intake: IV 600 1200 Dextrose 5% in Water 1, 600 1200 000 ml @ 100 mls/hr IV . Q11H SIERRA with Sodium Bicarb (1 Meq/ml) 100 ml Rx#:[id number] Intake, IV Titration 550 Amount Dextrose 5% in Water 1, 550 000 ml @ 100 mls/hr IV . [id number] SIERRA with Sodium Bicarb (1 Meq/ml) 150 ml Rx#:[id number] Oral 200 Output: Urine 528 710 Other: Voiding Method Indwelling Catheter Indwelling Catheter - Exam GENERAL EXAM: 60-year-old -[place] Citizen female, currently on room air with a pulse ox of 87%, awake and alert, oriented 3 comfortable in no apparent distress. HEAD: Normocephalic/atraumatic. EYES: Normal reaction of pupils, equal size. Conjunctiva pink, sclera white. NOSE: Clear with pink turbinates. THROAT: No erythema or exudates. NECK: No masses, no JVD, no thyroid enlargement, no adenopathy. CHEST: No chest wall deformity. Symmetrical expansion. LUNGS: Equal air entry with no crackles, wheeze, rhonchi or dullness. CVS: Regular rate and rhythm, normal S1 and S2, no gallops, no murmurs, no rubs ABDOMEN: Soft, obese, nontender. No hepatosplenomegaly, normal bowel sounds, no guarding or rigidity. EXTREMITIES: No clubbing, lysed edema including lower extremity edema, truncal sacral and abdominal wall 2+ pulses and upper and lower extremities. MUSCULOSKELETAL: Muscle strength and tone normal. SPINE: No scoliosis or deformity SKIN: No rashes CENTRAL NERVOUS SYSTEM: Somnolent, arousable to voice and oriented -2. No focal deficits, tone is normal in all 4 extremities. - Labs CBC & Chem 7: 10/18/20 08:03 10/18/20 03:35 Labs: Abnormal Lab Results - Last 24 Hours (Table) 10/16/20 10/17/20 10/17/20 Range/Units 16:23 10:47 10:58 MCH (25.0-35.0) pg MCHC (31.0-37.0) g/dL RDW (11.5-15.5) % Plt Count (150-450) k/uL Lymphocytes # (1.0-4.8) k/uL PT (9.0-12.0) sec INR (<1.2) Sodium 149 H (137-145) mmol/L Potassium 5.5 H (3.5-5.1) mmol/L Chloride 108 H (98-107) mmol/L Carbon Dioxide 36 H (22-30) mmol/L BUN 77 H (7-17) mg/dL Creatinine 3.96 H (0.52-1.04) mg/dL Glucose 66 L (74-99) mg/dL POC Glucose (mg/dL) 107 H (75-99) mg/dL Calcium (8.4-10.2) mg/dL AST (14-36) U/L ALT (4-34) U/L Creatine Kinase (30-135) U/L Troponin I (0.000-0.034) ng/mL Total Protein (6.3-8.2) g/dL Albumin (3.5-5.0) g/dL U Tricyclic Antidepress Detected H (NotDetected) 10/17/20 10/17/20 10/17/20 Range/Units 15:43 15:44 18:30 MCH (25.0-35.0) pg MCHC (31.0-37.0) g/dL RDW (11.5-15.5) % Plt Count (150-450) k/uL Lymphocytes # (1.0-4.8) k/uL PT (9.0-12.0) sec INR (<1.2) Sodium 146 H (137-145) mmol/L Potassium 5.5 H (3.5-5.1) mmol/L Chloride (98-107) mmol/L Carbon Dioxide 33 H (22-30) mmol/L BUN 78 H (7-17) mg/dL Creatinine 3.63 H (0.52-1.04) mg/dL Glucose 28 L* (74-99) mg/dL POC Glucose (mg/dL) 22 L 29 L (75-99) mg/dL Calcium 8.3 L (8.4-10.2) mg/dL AST (14-36) U/L ALT (4-34) U/L Creatine Kinase (30-135) U/L Troponin I (0.000-0.034) ng/mL Total Protein (6.3-8.2) g/dL Albumin (3.5-5.0) g/dL U Tricyclic Antidepress (NotDetected) 10/17/20 10/17/20 10/17/20 Range/Units 19:17 19:32 19:45 MCH (25.0-35.0) pg MCHC (31.0-37.0) g/dL RDW (11.5-15.5) % Plt Count (150-450) k/uL Lymphocytes # (1.0-4.8) k/uL PT (9.0-12.0) sec INR (<1.2) Sodium (137-145) mmol/L Potassium (3.5-5.1) mmol/L Chloride (98-107) mmol/L Carbon Dioxide (22-30) mmol/L BUN (7-17) mg/dL Creatinine (0.52-1.04) mg/dL Glucose (74-99) mg/dL POC Glucose (mg/dL) 48 L 55 L 120 H (75-99) mg/dL Calcium (8.4-10.2) mg/dL AST (14-36) U/L ALT (4-34) U/L Creatine Kinase (30-135) U/L Troponin I (0.000-0.034) ng/mL Total Protein (6.3-8.2) g/dL Albumin (3.5-5.0) g/dL U Tricyclic Antidepress (NotDetected) 10/17/20 10/18/20 10/18/20 Range/Units 22:00 00:38 00:48 MCH (25.0-35.0) pg MCHC (31.0-37.0) g/dL RDW (11.5-15.5) % Plt Count (150-450) k/uL Lymphocytes # (1.0-4.8) k/uL PT (9.0-12.0) sec INR (<1.2) Sodium (137-145) mmol/L Potassium (3.5-5.1) mmol/L Chloride (98-107) mmol/L Carbon Dioxide (22-30) mmol/L BUN (7-17) mg/dL Creatinine (0.52-1.04) mg/dL Glucose (74-99) mg/dL POC Glucose (mg/dL) 109 H 225 H (75-99) mg/dL Calcium (8.4-10.2) mg/dL AST (14-36) U/L ALT (4-34) U/L Creatine Kinase (30-135) U/L Troponin I 1.610 H* (0.000-0.034) ng/mL Total Protein (6.3-8.2) g/dL Albumin (3.5-5.0) g/dL U Tricyclic Antidepress (NotDetected) 10/18/20 10/18/20 10/18/20 Range/Units 03:35 03:35 03:35 MCH 23.6 L (25.0-35.0) pg MCHC 28.8 L (31.0-37.0) g/dL RDW 17.8 H (11.5-15.5) % Plt Count 96 L (150-450) k/uL Lymphocytes # (1.0-4.8) k/uL PT (9.0-12.0) sec INR (<1.2) Sodium (137-145) mmol/L Potassium 5.5 H (3.5-5.1) mmol/L Chloride (98-107) mmol/L Carbon Dioxide 37 H (22-30) mmol/L BUN 76 H (7-17) mg/dL Creatinine 3.92 H (0.52-1.04) mg/dL Glucose 47 L* (74-99) mg/dL POC Glucose (mg/dL) (75-99) mg/dL Calcium 8.0 L (8.4-10.2) mg/dL AST 1276 H (14-36) U/L ALT 1564 H (4-34) U/L Creatine Kinase 168 H (30-135) U/L Troponin I 1.560 H* (0.000-0.034) ng/mL Total Protein 5.4 L (6.3-8.2) g/dL Albumin 2.9 L (3.5-5.0) g/dL U Tricyclic Antidepress (NotDetected) 10/18/20 10/18/20 10/18/20 Range/Units 05:32 05:34 08:03 MCH 23.8 L (25.0-35.0) pg MCHC 29.4 L (31.0-37.0) g/dL RDW 17.7 H (11.5-15.5) % Plt Count 93 L (150-450) k/uL Lymphocytes # 0.8 L (1.0-4.8) k/uL PT (9.0-12.0) sec INR (<1.2) Sodium (137-145) mmol/L Potassium (3.5-5.1) mmol/L Chloride (98-107) mmol/L Carbon Dioxide (22-30) mmol/L BUN (7-17) mg/dL Creatinine (0.52-1.04) mg/dL Glucose (74-99) mg/dL POC Glucose (mg/dL) 531 H 200 H (75-99) mg/dL Calcium (8.4-10.2) mg/dL AST (14-36) U/L ALT (4-34) U/L Creatine Kinase (30-135) U/L Troponin I (0.000-0.034) ng/mL Total Protein (6.3-8.2) g/dL Albumin (3.5-5.0) g/dL U Tricyclic Antidepress (NotDetected) 10/18/20 Range/Units 08:03 MCH (25.0-35.0) pg MCHC (31.0-37.0) g/dL RDW (11.5-15.5) % Plt Count (150-450) k/uL Lymphocytes # (1.0-4.8) k/uL PT 12.7 H (9.0-12.0) sec INR 1.2 H (<1.2) Sodium (137-145) mmol/L Potassium (3.5-5.1) mmol/L Chloride (98-107) mmol/L Carbon Dioxide (22-30) mmol/L BUN (7-17) mg/dL Creatinine (0.52-1.04) mg/dL Glucose (74-99) mg/dL POC Glucose (mg/dL) (75-99) mg/dL Calcium (8.4-10.2) mg/dL AST (14-36) U/L ALT (4-34) U/L Creatine Kinase (30-135) U/L Troponin I (0.000-0.034) ng/mL Total Protein (6.3-8.2) g/dL Albumin (3.5-5.0) g/dL U Tricyclic Antidepress (NotDetected) Assessment and Plan Plan: Assessment: #1. Acute on chronic hypercapnic respiratory failure related to acute exacerbation of CHF with previous document a diastolic dysfunction. She required BiPAP support, currently pressures 12/5 and FiO2 of 100%. off BiPAP support and high flow oxygen at 5 l/min #2. Altered mental status, due to the above, brain CT showed no acute abnormality, improved with BiPAP support #3. Acute kidney injury with oliguria, and hyperkalemia. No evidence of hydronephrosis on the ultrasound of the abdomen and the CT of the abdomen and pelvis #4. Hyperkalemia, being corrected with bicarbonate, D50, insulin and Kayexalate, improving from 7.4 down to 5.5 on today's labs #5. Shock liver, possibly related to hypoperfusion. CT of the abdomen showed no discrete liver mass, improving #6. Troponin elevation, rule out possibility of non-ST elevated myocardial infarction, cardiology is following #7. Elevated d-dimer, extremity Dopplers are negative for DVT, VQ scan is pending for possibility of PE #8. History of diastolic CHF #9. Recent hospitalization in August for acute exacerbation of CHF #10. History of COPD not oxygen dependent at baseline #11. Obstructive sleep apnea #12. Hypertension #13. Hyperlipidemia #14. Diabetes mellitus type 2 with gastroparesis and neuropathy #15. Former smoker Plan: Continue on Lasix 60 mg every 8 hours Stop bicarbonate drip Nephrology following Echocardiogram reviewed cardiology recs VQ scan is pending, heparin drip has been started per cardiology recs Monitor urine output Continue BiPAP support time and as needed Mental status he is much improved Close glucose monitoring and may start D10 at a rate of 10-20 ML per hour if continues to be hypoglycemic Continue to closely follow in the intensive care unit I performed a history & physical examination of the patient and discussed their management with my nurse practitioner, Argelia Alvarado. I reviewed the nurse practitioner's note and agree with the documented findings and plan of care. Lung sounds are positive for diminished breath sounds The findings and the impression was discussed with the patient. I attest to the documentation by the nurse practitioner. Time with Patient: Greater than 30
[2020-10-18 10:02] LABS: Glucose,Whole Blood 212 mg/dL (75-99)
--- NOTE | 2020-10-18 11:09 | P.PN ---
Subjective Progress Note Date: 10/18/20 HISTORY OF PRESENT ILLNESS This is a 60-year-old female patient at [facility] with past medical history significant for COPD, diabetes mellitus type 2, gastroesophageal reflux disease, hypertension, hyperlipidemia, generalized osteoarthritis, remote history of tobacco use and dependence. Patient had recent hospitalization in August 24 through August 29 [facility] for acute respiratory failure secondary to acute diastolic heart failure, acute kidney injury and metabolic encephalopathy. A cardiogram at that time revealed severe concentric left hypertrophy with EF of 55-60%, trace mitral regurgitation. Apparently patient's daughter was trying to reach her for the past 3 days and she went over to check on her and found her poorly responsive. EMS was contacted and pulse ox was initially in the 70s. Patient was brought into [facility] emergency center for evaluation. Patient was afebrile, heart rate 80, blood pressure 152/104 and pulse ox 96% on nonrebreather. EKG sinus with right axis deviation. WBC 7.6, hemoglobin 12.1, platelet count 130. D-dimer 9.73. Sodium 145, potassium 7.2, chloride 106, CO2 30, BUN 71 and creatinine 3.56. Blood sugar 134. AST 6442, ALT 2889, CK 476. Troponin 2.160. Urinalysis was negative for infection. Influenza, RSV and colon testing all not detected. Chest x-ray revealed mild to moderate CHF with bibasilar opacities and probable trace left pleural effusion. CAT scan of the brain showed no acute intracranial abnormality. Echocardiogram reveals severe concentric left ventricular hypertrophy with EF 55-60%, mild mitral regurgitation, mild aortic valve sclerosis, moderate tricuspid regurgitation, severe pulmonary hypertension Renal ultrasound revealed questionable 2.4 cm right hepatic focus versus pr ominent pyramid. Consider CAT scan for further evaluation. Small perihepatic fluid. Gallbladder wall thickening without definite cholelithiasis, may be reactive due to fluid overload versus hepatic congestion. Nonspecific heterogenous liver without focal lesion may relate to chronic disease. CAT scan of the abdomen and pelvis without contrast revealed cardiomegaly with pleural effusions and pulmonary basilar consolidation and atelectasis. Ascites. Saphenous edema. Consistent with chronic heart failure. No discrete liver mass identified. Bilateral lower extremity ultrasound was negative for DVT bilaterally. Bilateral lower extremity subcutaneous edema. Right popliteal fossa cyst dominga suring 3.8 cm. Repeat chest x-ray this morning reveals CHF. She has been admitted into the intensive care unit and multiple consultants on her case including pulmonary medicine for intensive care management. Patient has been seen by cardiology, acute coronary syndrome ruled out, atorvastatin on hold, losartan on hold and plan to continue Lopressor. Patient has been evaluated by nephrology and received any milligrams of IV Lasix followed by 30 mL of output per 2 hour, subsequently started on bicarb drip with improved renal output 56: Patient remains in the intensive care unit. Due to changes on echocardiogram, cardiology has ordered VQ scan to rule out pulmonary embolism. Her ultrasound of lower extremities was negative for DVT bilaterally. Patient has also been started on heparin drip. Patient states that she slept well last night. Her breathing is good today. She denies having any chest pain. Edema is improved. She remains with Hyatt catheter in place. Patient has been a febrile, heart rate 89, blood pressure 105/62, pulse ox 93% on 51 nasal cannula 5 L. Repeat blood work reveals WBC 5.6, hemoglobin 11.5, platelet count 93. INR 1.2. Blood sugars in the 200s but at 3 AM was 47. Hypoglycemia was treated. Repeat troponins are 1.610 and 1.560. CK 168. Total bilirubin 0.6, AST 1276, ALT 1564. Sodium 145, potassium 5.5, chloride 103, CO2 37, BUN 76 and creatinine 3.92. Acute hepatitis panel was negative. Repeat chest x-ray reveals heart failure with increased small right pleural effusion. Patient is followed by multiple consultants including pulmonary medicine, cardiology and nephrology. Patient is status post sodium bicarb and followed closely by neph rology. No plan for dialysis at this point. REVIEW OF SYSTEMS Constitutional: No fever, no chills, no night sweats. No weight change. Reports weakness improving, Reports fatigue improving, Reports lethargy improving. Reports daytime sleepiness. EENT: No headache. No blurred vision or double vision, no loss of vision. No loss of Hearing, no ringing in the ears, no dizziness. No nasal drainage or congestion. No epistaxis. No sore throat. Lungs: Denies shortness of breath, cough, no sputum production. No wheezing. Reports shortness of breath with exertion. Cardiovascular: No chest pain, reports lower extremity edema. No palpitations. No paroxysmal nocturnal dyspnea. No orthopnea. No lightheadedness or dizziness. No syncopal episodes. Abdominal: No abdominal pain. No nausea, vomiting. No diarrhea. No constipation. No bloody or tarry stools. No loss of appetite. Genitourinary: No dysuria, increased frequency, urgency. No urinary retention. Musculoskeletal: No myalgias. Reports muscle weakness, Reports gait dysfunction, no frequent falls. No back pain. No neck pain. Integumentary: No wounds, no lesions. No rash or pruritus. Neurologic: No aphasia. No facial droop. Reports change in mentation. No head injury. No headache. No paralysis. No paresthesia. Psychiatric: No depression. No anxiety. Denies insomnia. Endocrine: No abnormal blood sugars. No weight change. PHYSICAL EXAMINATION Gen: This priscila 60-year-old -[place] female. She is resting in ICU bed appears to be comfortable. Patient is currently on BiPAP. HEENT: Head is atraumatic, normocephalic. Pupils equal, round. Sclerae is anic teric. NECK: Supple. No JVD. No lymphadenopathy. No thyromegaly. LUNGS: reveals diminished bilaterally, few expiratory wheeze. Accessory muscle usage No intercostal retractions. HEART: Regular rate and rhythm. No murmur. ABDOMEN: Soft. Bowel sounds are present. No masses. No tenderness. Hyatt catheter with clear santo urine. EXTREMITIES: 2+ bilateral pedal edema, edema to the right thigh. Dorsalis pedis +2 bilaterally. No calf tenderness. NEUROLOGICAL: Patient is awake, oriented to person and place, able to nod to answer simple questions. No focal neuro deficits. ASSESSMENT AND PLAN 1. Acute hypercapnic and hypoxic respiratory failure secondary to acute d iastolic heart failure. Patient is continued on BiPAP and followed by pulmonary medicine/cna hha. VQ scan to rule out pulmonary embolism. Ultrasound of bilateral lower extremities was negative for DVT. Heparin drip started. 2. Metabolic encephalopathy most likely secondary to hypoxia and renal failure, improved. CAT scan of the brain was negative for acute finding. Continue to monitor closely. 3. Acute kidney injury, acute tubular necrosis. Nephrology consult appreciated. 4. Severe hyperkalemia secondary to acute kidney injury. Patient is currently on bicarb drip and status post dextrose, insulin, calcium. 5. Metabolic acidosis secondary to acute kidney injury and respiratory failure. Off bicarb drip. 6. Shock liver with elevated liver function test secondary to hypoperfusion. Hold atorvastatin. Continue to monitor liver tests. Acute hepatitis panel was negative. 7. Troponin elevation likely due to acute on chronic kidney failure. Cardiology consult appreciated. 8. Thrombocytopenia secondary to acute illness. Continue to monitor. 9. Chronic kidney disease stage III. 10. COPD, stable. 11. Hypertension. Continue Lopressor 50 mg twice daily, hydralazine 10 mg IV push every 6 hours as needed. 12. Hyperlipidemia. Hold Lipitor. 13. Diabetes mellitus type 2, labile blood sugars. Continue NovoLog scale before meals and at bedtime. Hold Actos 30 mg daily. 14. Tobacco use and dependence. Smoking cessation. 15. Gastroesophageal reflux disease. Protonix 40 mg IV daily. 16. Diabetic neuropathy. Hold gabapentin. Patient put on low dose of Dilaudid if needed for pain. 17. Recurrent depression. Continue nortriptyline 25 mg daily. 18. DVT prophylaxis. Continue heparin 5000 units subcu every 8 hours. CODE STATUS: Full code DISCHARGE PLAN TBD. Impression and plan of care have been directed as dictated by the signing physician. Kathe North nurse practitioner acting as scribe for signing phys ician. Objective - Vital Signs Vital signs: Vital Signs Temp 97.9 F 10/18/20 04:00 Pulse 89 10/18/20 07:00 Resp 17 10/18/20 07:00 BP 105/62 10/18/20 07:00 Pulse Ox 93 L 10/18/20 07:00 Intake & Output 10/17/20 10/18/20 10/18/20 18:59 06:59 18:59 Intake Total 1150 1400 Output Total 528 710 Balance 622 690 Weight 117.7 kg Intake: IV 600 1200 Dextrose 5% in Water 1, 600 1200 000 ml @ 100 mls/hr IV . Q11H SIERRA with Sodium Bicarb (1 Meq/ml) 100 ml Rx#:[id number] Intake, IV Titration 550 Amount Dextrose 5% in Water 1, 550 000 ml @ 100 mls/hr IV . [id number] SIERRA with Sodium Bicarb (1 Meq/ml) 150 ml Rx#:[id number] Oral 200 Output: Urine 528 710 Other: Voiding Method Indwelling Catheter Indwelling Catheter - Labs CBC & Chem 7: 10/18/20 08:03 10/18/20 03:35 Labs: Abnormal Lab Results - Last 24 Hours (Table) 10/16/20 10/17/20 10/17/20 Range/Units 16:23 10:47 10:58 MCH (25.0-35.0) pg MCHC (31.0-37.0) g/dL RDW (11.5-15.5) % Plt Count (150-450) k/uL Lymphocytes # (1.0-4.8) k/uL PT (9.0-12.0) sec INR (<1.2) Sodium 149 H (137-145) mmol/L Potassium 5.5 H (3.5-5.1) mmol/L Chloride 108 H (98-107) mmol/L Carbon Dioxide 36 H (22-30) mmol/L BUN 77 H (7-17) mg/dL Creatinine 3.96 H (0.52-1.04) mg/dL Glucose 66 L (74-99) mg/dL POC Glucose (mg/dL) 107 H (75-99) mg/dL Calcium (8.4-10.2) mg/dL AST (14-36) U/L ALT (4-34) U/L Creatine Kinase (30-135) U/L Troponin I (0.000-0.034) ng/mL Total Protein (6.3-8.2) g/dL Albumin (3.5-5.0) g/dL U Tricyclic Antidepress Detected H (NotDetected) 10/17/20 10/17/20 10/17/20 Range/Units 15:43 15:44 18:30 MCH (25.0-35.0) pg MCHC (31.0-37.0) g/dL RDW (11.5-15.5) % Plt Count (150-450) k/uL Lymphocytes # (1.0-4.8) k/uL PT (9.0-12.0) sec INR (<1.2) Sodium 146 H (137-145) mmol/L Potassium 5.5 H (3.5-5.1) mmol/L Chloride (98-107) mmol/L Carbon Dioxide 33 H (22-30) mmol/L BUN 78 H (7-17) mg/dL Creatinine 3.63 H (0.52-1.04) mg/dL Glucose 28 L* (74-99) mg/dL POC Glucose (mg/dL) 22 L 29 L (75-99) mg/dL Calcium 8.3 L (8.4-10.2) mg/dL AST (14-36) U/L ALT (4-34) U/L Creatine Kinase (30-135) U/L Troponin I (0.000-0.034) ng/mL Total Protein (6.3-8.2) g/dL Albumin (3.5-5.0) g/dL U Tricyclic Antidepress (NotDetected) 10/17/20 10/17/20 10/17/20 Range/Units 19:17 19:32 19:45 MCH (25.0-35.0) pg MCHC (31.0-37.0) g/dL RDW (11.5-15.5) % Plt Count (150-450) k/uL Lymphocytes # (1.0-4.8) k/uL PT (9.0-12.0) sec INR (<1.2) Sodium (137-145) mmol/L Potassium (3.5-5.1) mmol/L Chloride (98-107) mmol/L Carbon Dioxide (22-30) mmol/L BUN (7-17) mg/dL Creatinine (0.52-1.04) mg/dL Glucose (74-99) mg/dL POC Glucose (mg/dL) 48 L 55 L 120 H (75-99) mg/dL Calcium (8.4-10.2) mg/dL AST (14-36) U/L ALT (4-34) U/L Creatine Kinase (30-135) U/L Troponin I (0.000-0.034) ng/mL Total Protein (6.3-8.2) g/dL Albumin (3.5-5.0) g/dL U Tricyclic Antidepress (NotDetected) 10/17/20 10/18/20 10/18/20 Range/Units 22:00 00:38 00:48 MCH (25.0-35.0) pg MCHC (31.0-37.0) g/dL RDW (11.5-15.5) % Plt Count (150-450) k/uL Lymphocytes # (1.0-4.8) k/uL PT (9.0-12.0) sec INR (<1.2) Sodium (137-145) mmol/L Potassium (3.5-5.1) mmol/L Chloride (98-107) mmol/L Carbon Dioxide (22-30) mmol/L BUN (7-17) mg/dL Creatinine (0.52-1.04) mg/dL Glucose (74-99) mg/dL POC Glucose (mg/dL) 109 H 225 H (75-99) mg/dL Calcium (8.4-10.2) mg/dL AST (14-36) U/L ALT (4-34) U/L Creatine Kinase (30-135) U/L Troponin I 1.610 H* (0.000-0.034) ng/mL Total Protein (6.3-8.2) g/dL Albumin (3.5-5.0) g/dL U Tricyclic Antidepress (NotDetected) 10/18/20 10/18/20 10/18/20 Range/Units 03:35 03:35 03:35 MCH 23.6 L (25.0-35.0) pg MCHC 28.8 L (31.0-37.0) g/dL RDW 17.8 H (11.5-15.5) % Plt Count 96 L (150-450) k/uL Lymphocytes # (1.0-4.8) k/uL PT (9.0-12.0) sec INR (<1.2) Sodium (137-145) mmol/L Potassium 5.5 H (3.5-5.1) mmol/L Chloride (98-107) mmol/L Carbon Dioxide 37 H (22-30) mmol/L BUN 76 H (7-17) mg/dL Creatinine 3.92 H (0.52-1.04) mg/dL Glucose 47 L* (74-99) mg/dL POC Glucose (mg/dL) (75-99) mg/dL Calcium 8.0 L (8.4-10.2) mg/dL AST 1276 H (14-36) U/L ALT 1564 H (4-34) U/L Creatine Kinase 168 H (30-135) U/L Troponin I 1.560 H* (0.000-0.034) ng/mL Total Protein 5.4 L (6.3-8.2) g/dL Albumin 2.9 L (3.5-5.0) g/dL U Tricyclic Antidepress (NotDetected) 10/18/20 10/18/20 10/18/20 Range/Units 05:32 05:34 08:03 MCH 23.8 L (25.0-35.0) pg MCHC 29.4 L (31.0-37.0) g/dL RDW 17.7 H (11.5-15.5) % Plt Count 93 L (150-450) k/uL Lymphocytes # 0.8 L (1.0-4.8) k/uL PT (9.0-12.0) sec INR (<1.2) Sodium (137-145) mmol/L Potassium (3.5-5.1) mmol/L Chloride (98-107) mmol/L Carbon Dioxide (22-30) mmol/L BUN (7-17) mg/dL Creatinine (0.52-1.04) mg/dL Glucose (74-99) mg/dL POC Glucose (mg/dL) 531 H 200 H (75-99) mg/dL Calcium (8.4-10.2) mg/dL AST (14-36) U/L ALT (4-34) U/L Creatine Kinase (30-135) U/L Troponin I (0.000-0.034) ng/mL Total Protein (6.3-8.2) g/dL Albumin (3.5-5.0) g/dL U Tricyclic Antidepress (NotDetected) 10/18/20 Range/Units 08:03 MCH (25.0-35.0) pg MCHC (31.0-37.0) g/dL RDW (11.5-15.5) % Plt Count (150-450) k/uL Lymphocytes # (1.0-4.8) k/uL PT 12.7 H (9.0-12.0) sec INR 1.2 H (<1.2) Sodium (137-145) mmol/L Potassium (3.5-5.1) mmol/L Chloride (98-107) mmol/L Carbon Dioxide (22-30) mmol/L BUN (7-17) mg/dL Creatinine (0.52-1.04) mg/dL Glucose (74-99) mg/dL POC Glucose (mg/dL) (75-99) mg/dL Calcium (8.4-10.2) mg/dL AST (14-36) U/L ALT (4-34) U/L Creatine Kinase (30-135) U/L Troponin I (0.000-0.034) ng/mL Total Protein (6.3-8.2) g/dL Albumin (3.5-5.0) g/dL U Tricyclic Antidepress (NotDetected)
[2020-10-18 12:10] LABS: Glucose,Whole Blood 139 mg/dL (75-99)
--- NOTE | 2020-10-18 12:40 | NM ---
EXAMINATION TYPE: NM pul vent and perfuse DATE OF EXAM: 10/18/2020 COMPARISON: Same day chest radiograph HISTORY: Shortness of breath, elevated d-dimer TECHNIQUE: Utilizing inhalation of 67.6 mCi Tc 99m DTPA aerosol and intravenous injection of 5.1 mCi of Tc 99m MAA, ventilation and perfusion images are acquired post injection in multiple projections. FINDINGS: Same day chest radiograph demonstrated cardiomegaly, perihilar and bibasilar airspace opacities, and bilateral pleural effusions. There are matched ventilation and perfusion defects of the bilateral lungs in the regions of pleural effusion and linear atelectasis. There are no significant mismatched perfusion defects. IMPRESSION: Low probability for pulmonary embolism.
[2020-10-18 13:20] LABS: Glucose,Whole Blood 174 mg/dL (75-99)
[2020-10-18] MEDS: metOLazone 5 MG TAB PO SCH (13:23)
--- NOTE | 2020-10-18 14:07 | PN ---
PROGRESS NOTE The patient is seen for followup for acute kidney injury. She was admitted to the hospital with shortness of breath and was in acute hypoxic respiratory failure and volume overload. The patient has been diuresed. She was maintained on bicarb drip for metabolic acidosis for a short period of time. Mentation has improved significantly. Serum potassium has decreased to about 5.5 from 7.2 on initial admission. The patient is currently being diuresed. PHYSICAL EXAMINATION: On examination today, blood pressure was 123/73, heart rate 84 per minute. Patient is afebrile. She is awake, comfortable, not in any acute distress, maintained on high- flow nasal cannula oxygen at about 5 L. EXAMINATION OF THE HEART: S1, S2. EXAMINATION OF THE LUNGS: Bilateral breath sounds are heard. Occasional wheezing heard. Examination of lower extremities shows edema 1+ bilaterally. Chronic skin changes. [place] exam grossly intact. LABS: Labs show hemoglobin 11.5, sodium 145, potassium 5.5, chloride 103, BUN 76, serum creatinine 3.92. Glucose was low at 47. Troponin 1.56. ASSESSMENT: 1. Acute kidney injury, acute tubular necrosis, initially oliguric, currently nonoliguric with improved urine output. No need for renal replacement therapy at this time. Continue to diurese patient. Metolazone has been added to the IV Lasix. 2. Chronic kidney disease secondary to diabetic kidney disease. Previous creatinine as low as 1.3 and a reading of 0.9 in 2018 but in August of 2020, creatinine has been around 1.6-1.9. The patient does have 3+ protein in her urine. 3. Hypernatremia, currently improved. 4. Hyperkalemia associated with acute kidney injury, improved, but potassium remains elevated at 5.5 and improved from 7.2 on admission. 5. Acute hypoxic respiratory failure secondary to congestive heart failure volume overload. The patient is off of BiPAP mostly using at night now. PLAN: Continue to diurese patient. Maintain low-potassium diet and repeat labs in a.m. Continue to avoid nephrotoxic medications. Try to maintain negative balance of about 2 L. MMODL / IJN: [id number] /
[2020-10-18 16:38] LABS: Glucose,Whole Blood 185 mg/dL (75-99)
[2020-10-18 20:14] LABS: Glucose,Whole Blood 155 mg/dL (75-99)
[2020-10-18] MEDS: MELATONIN 3 MG TABLET PO SCH (21:35)
[2020-10-18] MEDS: MONTELUKAST 10 MG TAB PO SCH (21:35)
[2020-10-19 04:33] LABS: Anisocytosis Slight; Basophils % (A) 0 %; Eosinophils # (A) 0.1 k/uL (0-0.7); Eosinophils % (A) 2 %; HCT 39.7 % (34.0-46.0); HGB 11.8 gm/dL (11.4-16.0); Hypochromasia Marked; Lymphocytes # (A) 0.9 k/uL (1.0-4.8); Lymphocytes % (A) 17 %; MCH 23.6 pg (25.0-35.0); MCHC 29.8 g/dL (31.0-37.0); MCV 79.3 fL (80.0-100.0); Mean Platelet Volume 11.1; Microcytosis Slight; Monocytes # (A) 0.4 k/uL (0-1.0); Monocytes % (A) 7 %; Neutrophils # (A) 4.2 k/uL (1.3-7.7); Neutrophils % (A) 73 %; Platelet Count 110 k/uL (150-450); Poikilocytosis Moderate; RBC 5.01 m/uL (3.80-5.40); RDW 17.8 % (11.5-15.5); WBC 5.7 k/uL (3.8-10.6)
[2020-10-19 04:52] LABS: Albumin 2.7 g/dL (3.5-5.0); Calcium 8.1 mg/dL (8.4-10.2); Potassium 4.8 mmol/L (3.5-5.1); Total Bilirubin 0.7 mg/dL (0.2-1.3); Total Protein 5.3 g/dL (6.3-8.2)
[2020-10-19 04:56] LABS: Large Platelets Present
--- NOTE | 2020-10-19 06:06 | XR ---
EXAMINATION TYPE: XR chest 1V DATE OF EXAM: 10/19/2020 CLINICAL HISTORY: Difficulty breathing and CHF progress study. TECHNIQUE: Single AP portable semiupright view of the chest is obtained. COMPARISON: Chest x-ray from one day earlier and older studies. FINDINGS: Persistent cardiomegaly with atherosclerotic aorta. Persistent left greater than right kvng ateral lower lung opacities on background chronic parenchymal change. Surgical changes right humeral head from prior rotator cuff surgery noted. IMPRESSION: Cardiomegaly with left greater than right bilateral lower lung patchy infiltrate and/or a telectasis and likely small left greater than right pleural effusions are all redemonstrated. Now sig nificant change from most recent x-ray.
[2020-10-19 07:07] LABS: Glucose,Whole Blood 131 mg/dL (75-99)
[2020-10-19] MEDS: INSULIN ASPART (NovoLOG) 100 UNIT/ML VIAL SQ SCH ×4 (07:10→20:28)
--- NOTE | 2020-10-19 08:41 | P.PN ---
Subjective Progress Note Date: 10/19/20 60-year-old female patient with past medical history of COPD, CHF with the diastolic dysfunction, chronic kidney disease stage III, diabetes mellitus type 2 with diabetic gastroparesis and diabetic neuropathy, morbid obesity, obstructive sleep apnea, hypertension, hyperlipidemia who was recently hospitalized from 08/24/2020 through 08/29/2020 for acute exacerbation of diastolic CHF. She was discharged home on oral Lasix 40 mg twice a day in addition to multiple other medications, she had troponin elevation during her last visit which was felt to be due to her abnormal renal function. Her echocardiogram from 08/24/2020 showed severe concentric LVH, with an EF between 55 and 60%, trace mitral regurg, right-sided pressures were normal at less than 35 mmHg. Patient was brought into the emergency department per EMS on oral 10/16/2020 with worsening shortness of breath, altered mental status, weakness, poor appetite over the past couple of days prior to admission. Patient's daughter went to her house to check on her mother and found her in rest or distress and poorly responsive, EMS arrived and patient's pulse ox was in the low 70s, chest x-ray in emergency department showed mild to moderate CHF with bibasilar opacities and probable trace left pleural effusion that was previously noted on her previous admission, brain CT showed no acute intracranial abnormality, EKG showed normal sinus rhythm, patient was placed on BiPAP support with pressures of 12 5 and FiO2 of 100%. Blood gas was obtained showing acute on chronic hypercapnic respiratory failure with pO2 of 157, pCO2 of 82, and pH of 7.21, the rest of the blood work was reviewed showing normal white count 7.6, hemoglobin of 12.1, platelet count was 1:30, d-dimer was 9.73, INR was 1.3, potassium was 7.2, BUN was 71, creatinine was 3.56, glucose was 135, no significant elevation of liver enzymes with AST of 6442, and ALT of 2889, troponin was elevated at 2.160. Urinalysis showed 3+ protein, but no clear evidence of urinary tract infection, patient was checked for influenza, RSV and now COVID-19 and was found to be negative. Serum alcohol level was less than 10, acetaminophen level was less than 10. Lactic acid was normal at 1.7. Hent was given Ancef sodium bicarbonate in the emergency department, hyperkalemia was treated with D50, regular insulin, she was given 30 g of Kayexalate in the emergency department. She appears to be generally fluid overloaded, with extensive edema in her lower extremities she was oliguric and she was given 80 mg of Lasix. Nephrology has been consulted. This morning she is more responsive, remains on BiPAP support with above-mentioned settings, she is able to provide simple answers, she any fever or chills, denied any chest pain, she did state that she was increasingly more short of breath and noted increasing lower extremity edema. She denies being oxygen dependent on a regular basis. Her pulse ox is 99%, she has remained afebrile through the night, blood pressures have been stable, she only produced 100 mL in urine output despite the Lasix challenge. This morning her chest x-ray is showing essentially stable findings of mild to moderate perihilar and bibasilar hazy opacities. Ultrasound of the abdomen was obtained showing questionable 2.4 cm right hepatic focus versus prominent pyramid, gallbladder wall appeared thickened with fluid seen adjacent to the gallbladder, common bile duct portion seen appeared within normal limits, kidneys with no evidence of hydronephrosis. CT of the abdomen and pelvis was obtained showing cardiomegaly with pleural eff usions and pulmonary basilar consolidation and atelectasis, ascites, subcutaneous edema no discrete liver mass was identified, kidneys were of normal size with no hydronephrosis, ureters were not dilated. There is no evidence of bowel obstruction, there were multiple sigmoid diverticula without any sign of diverticulitis. Follow-up blood work this morning shows a white blood cell count of 8.7, hemoglobin of 11.7, platelet count is 115, sodium of 144, potassium 6.6, chloride is 109, renal profile slightly improved, with B1 at 74, and creatinine of 3.72, AST is down to 4438, and ALT of 2240, alkaline phosphatase is within normal limits at 54. On 10/18/2020 patient seen in follow-up in intensive care unit, she is much more alert and responsive on today's exam. She is resting comfortably in bed, she is oriented to person, place and the month, the year, seems to be a bit inattentive, but overall mentation has significantly improved in the last 24 hours, tshe did go on BiPAP support last night sugars of 12/5 and FiO2 of 65%. She was switched over to high flow nasal cannula which is currently off the patient's face, removed it inadvertently, and her pulse ox right now is 86%. Does not seem to be in any acute distress, supplement oxygen was placed back on the patient's face and O2 sat did come up to 93%, lung sounds reveal diminished breath sounds at the bases, with bibasilar crackles. He remains significantly fluid overloaded, and she is actually positive fluid balance over the last 24 hours of 1.3 L. Has significant generalized edema including her bilateral lower extremities, abdomen, sacral area. However mentation is much improved, and she seems to breathing quite comfortably. Even several doses of IV Lasix yesterday, seen urine in order of 50-75 ML per hour. Is on 5% dextrose with 3 A of bicarbonate at a rate of 85 ML per hour. On today's labs are bicarbonate concentration is 37, potassium is 5.5, BUN of 76 and creatinine is 3.92. Her liver enzymes are trending down, AST is 1276, ALT is 1564, alkaline phosphatase is 67. Her troponins are trending down, from 2.160 on admission, to 1.610, and 1.560. D-dimer was elevated on admission, her lower extremity Dopplers did not show definite evidence of DVT. Cardiology is rounding and patient is being started on heparin infusion for possibility of pulmonary embolism, VQ scan per cardiology is pending. Last night patient was hypoglycemic, and she was given D50 IV push. Patient is now tolerating oral intake, and her appetite is fair she is consuming about 40-50% of her meal. Cardiogram showed preserved LV function with EF between 55-60%, severe enlargement of the right ventricle, with paradoxical motion of the right ventricular septum consistent with fluid overload or elevated right ventricular end-diastolic pressure, there was evidence of severe pulmonary hypertension with right-sided pressures of 69 mmHg. Inferior vena cava was dilated with poor inspiratory collapse estimated right atrial pressure of 20 mmHg On 10/19/2020 patient seen in follow-up in intensive care unit, she is awake and alert, oriented 3, in bed, watching TV, breathing comfortably, she is currently on 2 L of oxygen her pulse ox is 96%, she did wear BiPAP last night with pressures 12/5 and FiO2 of 65%, tolerated it well. Her 0.9 normal saline is infusing at 10 ML per hour, no other drips, she is in -2.5 L fluid balance over the last 24 hours, she remains on Lasix 60 mg every 8 hours, today's chest x-ray was reviewed and cardiomegaly with left greater than right bilateral lower lung patchy infiltrates small left greater than right pleural effusions. Overall no significant change compared to previous chest x-ray from yesterday, generalized edema is improving. Today's labs have been reviewed white blood cell count of 5.7, hemoglobin of 11.8, platelet count is 110, sodium is 143, potassium is 4.8, chloride is 100, CO2 35, B1 is 78, creatinine is 3.65, and her renal profile shows slight improvement from yesterday. Her enzymes are improving as well, a ST is 459, ALT is 971, alkaline phosphatase is 62. VQ scan was completed yesterday showing low probability of pulmonary embolism, and her heparin drip has been discontinued and patient was switched back over to subcutaneous heparin 5000 mg subcutaneous injections twice daily. Overall no acute events overnight, she is in sinus mechanism, with a controlled rate, blood pressure stable 140/78. No altered mentation, fever or chills, no complaints of chest pain no cough or congestion. Objective - Vital Signs Vital signs: Vital Signs Temp 98.3 F 10/19/20 04:00 Pulse 80 10/19/20 07:00 Resp 15 10/19/20 07:00 BP 151/88 10/19/20 07:00 Pulse Ox 98 10/19/20 07:00 Intake & Output 10/18/20 10/19/20 10/19/20 18:59 06:59 18:59 Intake Total 318.289 120 10 Output Total 650 2305 275 Balance -331.711 -2181 -265 Weight 109 kg Intake: IV 100 120 10 0.9@10 100 120 10 Intake, IV Titration 118.289 Amount Heparin Sod,Pork in 0.45% 118.289 NaCl 25,000 unit In 0.45 % NaCl 1 250ml.bag @ 18 UNITS/KG/HR 21.186 mls/hr IV .[id number] [facility] Rx#: [id number] Lipid 100 Dextrose 5% in Water 1, 100 000 ml @ 100 mls/hr IV . Q11H [facility] with Sodium Bicarb (1 Meq/ml) 100 ml Rx#:[id number] Output: Urine 650 2305 275 Other: Voiding Method Indwelling Catheter Indwelling Catheter # Bowel Movements 1 - Exam GENERAL EXAM: 60-year-old -Italian female, currently on 2 L of oxygen and pulse ox is 96% awake and alert, oriented 3 comfortable in no apparent distress. HEAD: Normocephalic/atraumatic. EYES: Normal reaction of pupils, equal size. Conjunctiva pink, sclera white. NOSE: Clear with pink turbinates. THROAT: No erythema or exudates. NECK: No masses, no JVD, no thyroid enlargement, no adenopathy. CHEST: No chest wall deformity. Symmetrical expansion. LUNGS: Equal air entry with no crackles, wheeze, rhonchi or dullness. CVS: Regular rate and rhythm, normal S1 and S2, no gallops, no murmurs, no rubs ABDOMEN: Soft, obese, nontender. No hepatosplenomegaly, normal bowel sounds, no guarding or rigidity. EXTREMITIES: No clubbing, lysed edema including lower extremity edema, truncal sacral and abdominal wall 2+ pulses and upper and lower extremities. MUSCULOSKELETAL: Muscle strength and tone normal. SPINE: No scoliosis or deformity SKIN: No rashes CENTRAL NERVOUS SYSTEM: Alert, oriented 3. No focal deficits, tone is normal in all 4 extremities. - Labs CBC & Chem 7: 10/19/20 04:11 10/19/20 04:11 Labs: Abnormal Lab Results - Last 24 Hours (Table) 10/18/20 10/18/20 10/18/20 Range/Units 08:03 10:00 11:58 MCV (80.0-100.0) fL MCH (25.0-35.0) pg MCHC (31.0-37.0) g/dL RDW (11.5-15.5) % Plt Count (150-450) k/uL Lymphocytes # (1.0-4.8) k/uL PT 12.7 H (9.0-12.0) sec INR 1.2 H (<1.2) APTT (22.0-30.0) sec Carbon Dioxide (22-30) mmol/L BUN (7-17) mg/dL Creatinine (0.52-1.04) mg/dL Glucose (74-99) mg/dL POC Glucose (mg/dL) 212 H 139 H (75-99) mg/dL Calcium (8.4-10.2) mg/dL AST (14-36) U/L ALT (4-34) U/L Total Protein (6.3-8.2) g/dL Albumin (3.5-5.0) g/dL 10/18/20 10/18/20 10/18/20 Range/Units 13:19 13:33 16:37 MCV (80.0-100.0) fL MCH (25.0-35.0) pg MCHC (31.0-37.0) g/dL RDW (11.5-15.5) % Plt Count (150-450) k/uL Lymphocytes # (1.0-4.8) k/uL PT (9.0-12.0) sec INR (<1.2) APTT >200.0 H* (22.0-30.0) sec Carbon Dioxide (22-30) mmol/L BUN (7-17) mg/dL Creatinine (0.52-1.04) mg/dL Glucose (74-99) mg/dL POC Glucose (mg/dL) 174 H 185 H (75-99) mg/dL Calcium (8.4-10.2) mg/dL AST (14-36) U/L ALT (4-34) U/L Total Protein (6.3-8.2) g/dL Albumin (3.5-5.0) g/dL 10/18/20 10/19/20 10/19/20 Range/Units 20:12 04:11 04:11 MCV 79.3 L (80.0-100.0) fL MCH 23.6 L (25.0-35.0) pg MCHC 29.8 L (31.0-37.0) g/dL RDW 17.8 H (11.5-15.5) % Plt Count 110 L (150-450) k/uL Lymphocytes # 0.9 L (1.0-4.8) k/uL PT (9.0-12.0) sec INR (<1.2) APTT (22.0-30.0) sec Carbon Dioxide 35 H (22-30) mmol/L BUN 78 H (7-17) mg/dL Creatinine 3.65 H (0.52-1.04) mg/dL Glucose 107 H (74-99) mg/dL POC Glucose (mg/dL) 155 H (75-99) mg/dL Calcium 8.1 L (8.4-10.2) mg/dL AST 459 H (14-36) U/L ALT 971 H (4-34) U/L Total Protein 5.3 L (6.3-8.2) g/dL Albumin 2.7 L (3.5-5.0) g/dL 10/19/20 Range/Units 07:05 MCV (80.0-100.0) fL MCH (25.0-35.0) pg MCHC (31.0-37.0) g/dL RDW (11.5-15.5) % Plt Count (150-450) k/uL Lymphocytes # (1.0-4.8) k/uL PT (9.0-12.0) sec INR (<1.2) APTT (22.0-30.0) sec Carbon Dioxide (22-30) mmol/L BUN (7-17) mg/dL Creatinine (0.52-1.04) mg/dL Glucose (74-99) mg/dL POC Glucose (mg/dL) 131 H (75-99) mg/dL Calcium (8.4-10.2) mg/dL AST (14-36) U/L ALT (4-34) U/L Total Protein (6.3-8.2) g/dL Albumin (3.5-5.0) g/dL Microbiology - Last 24 Hours (Table) 10/17/20 10:58 Blood Culture - Preliminary Blood No Growth after 24 hours 10/17/20 11:05 Blood Culture - Preliminary Blood No Growth after 24 hours Assessment and Plan Plan: Assessment: #1. Acute on chronic hypercapnic respiratory failure related to acute exacerbation of CHF with previous document a diastolic dysfunction. She required BiPAP support, currently pressures 12/5 and FiO2 of 100%. off BiPAP support and high flow oxygen at 5 l/min #2. Altered mental status, due to the above, brain CT showed no acute abnormality, improved with BiPAP support #3. Acute kidney injury with oliguria, and hyperkalemia. No evidence of hydronephrosis on the ultrasound of the abdomen and the CT of the abdomen and pelvis. Kidney function improving #4. Hyperkalemia, being corrected with bicarbonate, D50, insulin and Kayexalate, improving from 7.4 down to 4.8 on today's labs #5. Shock liver, possibly related to hypoperfusion, improving. CT of the abdomen showed no discrete liver mass #6. Troponin elevation, rule out possibility of non-ST elevated myocardial infarction, cardiology is following #7. Elevated d-dimer, extremity Dopplers are negative for DVT, VQ scan is low probability for pulmonary embolism and heparin infusion has been discontinued and patient was switched back to prophylactic heparin injections #8. History of diastolic CHF #9. Recent hospitalization in August for acute exacerbation of CHF #10. History of COPD not oxygen dependent at baseline #11. Obstructive sleep apnea #12. Hypertension #13. Hyperlipidemia #14. Diabetes mellitus type 2 with gastroparesis and neuropathy #15. Former smoker Plan: Continue on Lasix 60 mg every 8 hours Kidney function is improving fluid volume status is improving daily labs to monitor patient's electrolytes and renal function VQ showed low probability of pulmonary embolism heparin drip has been discontinued and patient is on prophylactic doses of subcutaneous heparin injections Today's chest x-ray has been reviewed showing essentially stable findings, small bilateral pleural effusions left greater than right BiPAP support at nighttime and as needed Provide incentive spirometer, physical therapy consultation Altered mentation, hemodynamically stable Tolerating oral diet No acute events overnight Patient is stable for transfer out of intensive care unit to selective care unit today I performed a history & physical examination of the patient and discussed their management with my nurse practitioner, Argelia Alvarado. I reviewed the nurse practitioner's note and agree with the documented findings and plan of care. Lung sounds are positive for diminished breath sounds The findings and the impression was discussed with the patient. I attest to the documentation by the nurse practitioner. Time with Patient: Less than 30
[2020-10-19] MEDS: HEPARIN SODIUM,PORCINE/PF 5,000 UNIT/0.5 ML SYRINGE SQ SCH ×2 (10:26→20:28)
[2020-10-19] MEDS: PANTOPRAZOLE 40 MG/10 ML VIAL IV SCH (10:26)
[2020-10-19] MEDS: FUROSEMIDE 10 MG/ML 10 ML VIAL IV SCH ×3 (10:26→23:04)
[2020-10-19] MEDS: METOPROLOL TARTRATE 50 MG TAB PO SCH ×2 (10:27→20:27)
[2020-10-19] MEDS: metOLazone 5 MG TAB PO SCH (10:27)
[2020-10-19] MEDS: NORTRIPTYLINE 25 MG CAP PO SCH (10:27)
[2020-10-19] MEDS: SENNOSIDES-DOCUSATE SODIUM 1 EACH TAB PO SCH ×2 (10:27→20:27)
[2020-10-19] MEDS: ASPIRIN 81 MG PO SCH (10:27)
--- NOTE | 2020-10-19 10:45 | P.PN ---
Subjective HISTORY OF PRESENTING ILLNESS This is a pleasant 60-year-old -[place] female past medical history significant for hypertension, dyslipidemia, diabetes mellitus, COPD and former nicotine. He does not follow regularly in the office with a obstetric assistant. In [address] Khan secondary to an abnormal stress test prompting cardiac catheterization which revealed normal coronary arteries. We have been asked to see in consultation for elevated troponin. Was brought to the hospital after her daughter was unable to get all of her for 3 days. She was found at home to have altered mental status and shortness of breath. On arrival to the emergency department pulse ox was 84% on room air. She states she has not been eating or drinking any fluids due to poor appetite over the previous few days. She is seen and examined sitting up on BiPAP in the intensive care unit. She has no symptoms of chest discomfort. She states her breathing seems to have improved since admission. She has no dizziness or palpitations. Nephrology and p ulmonary are also following. She seems to be profoundly dehydrated with acute kidney injury and hyperkalemia. Most recent echocardiogram obtained August 2020 revealed preserved LV systolic function with ejection fraction 55-60%. 10/19/2020 Pt seen and examined sitting up in bed in no acute distress. She looks comfortably and is mentating back to baseline. VQ scan was low probability for PE. Heparin infusion discontinued per critical care team. Blood pressure 151/88 heart rate 80 afebrile and maintaining oxygen saturation on nasal cannula. Laboratory data reviewed, WBC 5.7, hemoglobin 11.8, platelets 110, sodium 143, potassium 4.8, creatinine 3.65. Currently maintained on lasix 60 mg IV TID, aspirin 81 mg daily, zaroxolyn 5 mg daily and lopressor 50 mg BID. 24-hour urine output 2955 ml. RV strain pattern likely related to sleep apnea. PHYSICAL EXAMINATION CONSTITUTIONAL: No apparent distress. HEENT: Head is normocephalic. Pupils are equal, round. Sclerae anicteric. Mucous membranes of the mouth are moist. No JVD. No carotid bruit. CHEST EXAMINATION: Lungs are clear to auscultation. No chest wall tenderness is noted on palpation or with deep breathing. Diminished bilaterally. HEART EXAMINATION: Regular rate and rhythm. S1, S2 heard. No murmurs, gallops or rub. EXTREMITIES: 2+ peripheral pulses, 1+ bilateral lower extremity pitting edema and no calf tenderness. ASSESSMENT Hyperkalemia Dehydration secondary to prerenal azotemia Thrombocytopenia Hypercapnic respiratory failure Altered mental status Acute on chronic kidney disease Transaminitis Troponin elevation is not related to primary myocardial injury Hypertension Dyslipidemia Diabetes mellitus COPD PLAN Continue current medical regimen. Follow renal function and electrolytes in the morning. Nurse Practitioner note has been reviewed, I agree with a documented findings and plan of care. Patient was seen and examined. Objective - Vital Signs Vital signs: Vital Signs Temp 98.3 F 10/19/20 04:00 Pulse 80 10/19/20 07:00 Resp 15 10/19/20 07:00 BP 151/88 10/19/20 07:00 Pulse Ox 98 10/19/20 07:00 Intake & Output 10/18/20 10/19/20 10/19/20 18:59 06:59 18:59 Intake Total 318.289 120 10 Output Total 650 2305 275 Balance -331.711 -2185 -265 Weight 109 kg Intake: IV 100 120 10 0.9@10 100 120 10 Intake, IV Titration 118.289 Amount Heparin Sod,Pork in 0.45% 118.289 NaCl 25,000 unit In 0.45 % NaCl 1 250ml.bag @ 18 UNITS/KG/HR 21.186 mls/hr IV .[id number] [facility] Rx#: [id number] Lipid 100 Dextrose 5% in Water 1, 100 000 ml @ 100 mls/hr IV . Q11H [facility] with Sodium Bicarb (1 Meq/ml) 100 ml Rx#:[id number] Output: Urine 650 2305 275 Other: Voiding Method Indwelling Catheter Indwelling Catheter # Bowel Movements 1 - Labs CBC & Chem 7: 10/19/20 04:11 10/19/20 04:11 Labs: Abnormal Lab Results - Last 24 Hours (Table) 10/18/20 10/18/20 10/18/20 Range/Units 11:58 13:19 13:33 MCV (80.0-100.0) fL MCH (25.0-35.0) pg MCHC (31.0-37.0) g/dL RDW (11.5-15.5) % Plt Count (150-450) k/uL Lymphocytes # (1.0-4.8) k/uL APTT >200.0 H* (22.0-30.0) sec Carbon Dioxide (22-30) mmol/L BUN (7-17) mg/dL Creatinine (0.52-1.04) mg/dL Glucose (74-99) mg/dL POC Glucose (mg/dL) 139 H 174 H (75-99) mg/dL Calcium (8.4-10.2) mg/dL AST (14-36) U/L ALT (4-34) U/L Total Protein (6.3-8.2) g/dL Albumin (3.5-5.0) g/dL 10/18/20 10/18/20 10/19/20 Range/Units 16:37 20:12 04:11 MCV (80.0-100.0) fL MCH (25.0-35.0) pg MCHC (31.0-37.0) g/dL RDW (11.5-15.5) % Plt Count (150-450) k/uL Lymphocytes # (1.0-4.8) k/uL APTT (22.0-30.0) sec Carbon Dioxide 35 H (22-30) mmol/L BUN 78 H (7-17) mg/dL Creatinine 3.65 H (0.52-1.04) mg/dL Glucose 107 H (74-99) mg/dL POC Glucose (mg/dL) 185 H 155 H (75-99) mg/dL Calcium 8.1 L (8.4-10.2) mg/dL AST 459 H (14-36) U/L ALT 971 H (4-34) U/L Total Protein 5.3 L (6.3-8.2) g/dL Albumin 2.7 L (3.5-5.0) g/dL 10/19/20 10/19/20 Range/Units 04:11 07:05 MCV 79.3 L (80.0-100.0) fL MCH 23.6 L (25.0-35.0) pg MCHC 29.8 L (31.0-37.0) g/dL RDW 17.8 H (11.5-15.5) % Plt Count 110 L (150-450) k/uL Lymphocytes # 0.9 L (1.0-4.8) k/uL APTT (22.0-30.0) sec Carbon Dioxide (22-30) mmol/L BUN (7-17) mg/dL Creatinine (0.52-1.04) mg/dL Glucose (74-99) mg/dL POC Glucose (mg/dL) 131 H (75-99) mg/dL Calcium (8.4-10.2) mg/dL AST (14-36) U/L ALT (4-34) U/L Total Protein (6.3-8.2) g/dL Albumin (3.5-5.0) g/dL Microbiology - Last 24 Hours (Table) 10/17/20 10:58 Blood Culture - Preliminary Blood No Growth after 24 hours 10/17/20 11:05 Blood Culture - Preliminary Blood No Growth after 24 hours
[2020-10-19 10:50] LABS: Glucose,Whole Blood 167 mg/dL (75-99)
--- NOTE | 2020-10-19 12:57 | P.PN ---
Subjective Progress Note Date: 10/19/20 HISTORY OF PRESENT ILLNESS This is a 60-year-old female patient at [facility] with past medical history significant for COPD, diabetes mellitus type 2, gastroesophageal reflux disease, hypertension, hyperlipidemia, generalized osteoarthritis, remote history of tobacco use and dependence. Patient had recent hospitalization in August 24 through August [facility] for acute respiratory failure secondary to acute diastolic heart failure, acute kidney injury and metabolic encephalopathy. A cardiogram at that time revealed severe concentric left hypertrophy with EF of 55-60%, trace mitral regurgitation. Apparently patient's daughter was trying to reach her for the past 3 days and she went over to check on her and found her poorly responsive. EMS was contacted and pulse ox was initially in the 70s. Patient was brought into [facility] emergency center for evaluation. Patient was afebrile, heart rate 80, blood pressure 152/104 and pulse ox 96% on nonrebreather. EKG sinus with right axis deviation. WBC 7.6, hemoglobin 12.1, platelet count 130. D-dimer 9.73. Sodium 145, potassium 7.2, chloride 106, CO2 30, BUN 71 and creatinine 3.56. Blood sugar 134. AST 6442, ALT 2889, CK 476. Troponin 2.160. Urinalysis was negative for infection. Influenza, RSV and colon testing all not detected. Chest x-ray revealed mild to moderate CHF with bibasilar opacities and probable trace left pleural effusion. CAT scan of the brain showed no acute intracranial abnormality. Echocardiogram reveals severe concentric left ventricular hypertrophy with EF 55-60%, mild mitral regurgitation, mild aortic valve sclerosis, moderate tricuspid regurgitation, severe pulmonary hypertension Renal ultrasound revealed questionable 2.4 cm right hepatic focus versus pr ominent pyramid. Consider CAT scan for further evaluation. Small perihepatic fluid. Gallbladder wall thickening without definite cholelithiasis, may be reactive due to fluid overload versus hepatic congestion. Nonspecific heterogenous liver without focal lesion may relate to chronic disease. CAT scan of the abdomen and pelvis without contrast revealed cardiomegaly with pleural effusions and pulmonary basilar consolidation and atelectasis. Ascites. Saphenous edema. Consistent with chronic heart failure. No discrete liver mass identified. Bilateral lower extremity ultrasound was negative for DVT bilaterally. Bilateral lower extremity subcutaneous edema. Right popliteal fossa cyst dominga suring 3.8 cm. Repeat chest x-ray this morning reveals CHF. She has been admitted into the intensive care unit and multiple consultants on her case including pulmonary medicine for intensive care management. Patient has been seen by cardiology, acute coronary syndrome ruled out, atorvastatin on hold, losartan on hold and plan to continue Lopressor. Patient has been evaluated by nephrology and received any milligrams of IV Lasix followed by 30 mL of output per 2 hour, subsequently started on bicarb drip with improved renal output 10/18: Patient remains in the intensive care unit. Due to changes on echocardiogram, cardiology has ordered VQ scan to rule out pulmonary embolism. Her ultrasound of lower extremities was negative for DVT bilaterally. Patient has also been started on heparin drip. Patient states that she slept well last night. Her breathing is good today. She denies having any chest pain. Edema is improved. She remains with Hyatt catheter in place. Patient has been a febrile, heart rate 89, blood pressure 105/62, pulse ox 93% on 51 nasal cannula 5 L. Repeat blood work reveals WBC 5.6, hemoglobin 11.5, platelet count 93. INR 1.2. Blood sugars in the 200s but at 3 AM was 47. Hypoglycemia was treated. Repeat troponins are 1.610 and 1.560. CK 168. Total bilirubin 0.6, AST 1276, ALT 1564. Sodium 145, potassium 5.5, chloride 103, CO2 37, BUN 76 and creatinine 3.92. Acute hepatitis panel was negative. Repeat chest x-ray reveals heart failure with increased small right pleural effusion. Patient is followed by multiple consultants including pulmonary medicine, cardiology and nephrology. Patient is status post sodium bicarb and followed closely by neph rology. No plan for dialysis at this point. 10/19: She is seen today in the intensive care unit but has been cleared for transfer to the cardiac stepdown unit. Patient is sitting up in bed appears in no acute distress. She is down to 2 L oxygen nasal cannula. Lower extremity edema is improving. compliance monitor is in normal sinus rhythm. She's been afebrile, heart rate 89, respiratory rate 27, blood pressure 140/78, pulse ox 95%. VQ scan was low probability for pulmonary embolism. Patient is now on subcu heparin. Repeat chest x-ray reveals cardiomegaly with left greater than right bilateral lower lung patchy infiltrates and/or atelectasis likely small left greater than right effusions redemonstrated. No significant change. Repeat blood work reveals WBC 5.7, hemoglobin 11.8, platelet count 110. Sodium 143, potassium 4.8, chloride 100, CO2 35, BUN 78 and creatinine 3.65. This is minimally improved from yesterday. Blood sugars are running between 170s and 167. Total bilirubin 0.7, AST 459, ALT 971, alkaline phosphatase 62. Blood cultures no growth after 24 hours. Cardiology is planning to continue current regime. She is continued on Lasix 60 mg IV every 8 hours. From urology is not planning for dialysis at this point. REVIEW OF SYSTEMS Constitutional: No fever, no chills, no night sweats. No weight change. Reports weakness improving, Reports fatigue improving, Reports lethargy improving. Reports daytime sleepiness. EENT: No headache. No blurred vision or double vision, no loss of vision. No loss of Hearing, no ringing in the ears, no dizziness. No nasal drainage or congestion. No epistaxis. No sore throat. Lungs: Denies shortness of breath, cough, no sputum production. No wheezing. Reports shortness of breath with exertion. Cardiovascular: No chest pain, reports lower extremity edema. No palpitations. No paroxysmal nocturnal dyspnea. No orthopnea. No lightheadedness or dizziness. No syncopal episodes. Abdominal: No abdominal pain. No nausea, vomiting. No diarrhea. No constipation. No bloody or tarry stools. No loss of appetite. Genitourinary: No dysuria, increased frequency, urgency. No urinary retention. Musculoskeletal: No myalgias. Reports muscle weakness, Reports gait dysfunction, no frequent falls. No back pain. No neck pain. Integumentary: No wounds, no lesions. No rash or pruritus. Neurologic: No aphasia. No facial droop. Reports change in mentation. No head injury. No headache. No paralysis. No paresthesia. Psychiatric: No depression. No anxiety. Denies insomnia. Endocrine: No abnormal blood sugars. No weight change. PHYSICAL EXAMINATION Gen: This priscila 60-year-old -[place] female. She is resting in ICU bed appears to be comfortable. Patient is currently on O2 at 2 L nasal cannula. HEENT: Head is atraumatic, normocephalic. Pupils equal, round. Sclerae is anicteric. NECK: Supple. No JVD. No lymphadenopathy. No thyromegaly. LUNGS: reveals diminished bilaterally, few expiratory wheeze. Accessory muscle usage No intercostal retractions. HEART: Regular rate and rhythm. No murmur. ABDOMEN: Soft. Bowel sounds are present. No masses. No tenderness. Hyatt catheter with clear santo urine. EXTREMITIES: 2+ bilateral pedal edema, edema to the right thigh. Dorsalis pedis +2 bilaterally. No calf tenderness. NEUROLOGICAL: Patient is awake, oriented to person and place, able to nod to answer simple questions. No focal neuro deficits. ASSESSMENT AND PLAN 1. Acute hypercapnic and hypoxic respiratory failure secondary to acute diastolic heart failure. Patient is continued on BiPAP and followed by pulmo [facility] medicine/toll mechanic. VQ scan to ruled out pulmonary embolism. Ultrasound of bilateral lower extremities was negative for DVT. 2. Metabolic encephalopathy most likely secondary to hypoxia and renal failure, improved. CAT scan of the brain was negative for acute finding. Continue to monitor closely. 3. Acute kidney injury, acute tubular necrosis. Nephrology consult appreciated. No plan for dialysis at this point. 4. Severe hyperkalemia secondary to acute kidney injury. Patient is status post dextrose, insulin, calcium, bicarb drip. 5. Metabolic acidosis secondary to acute kidney injury and respiratory failure. Off bicarb drip. 6. Shock liver with elevated liver function test secondary to hypoperfusion. Hold atorvastatin. Continue to monitor liver tests. Acute hepatitis panel was negative. 7. Troponin elevation likely due to acute on chronic kidney failure. Cardiology consult appreciated. 8. Thrombocytopenia secondary to acute illness. Continue to monitor. 9. Chronic kidney disease stage III. 10. Severe pulmonary hypertension secondary to chronic thromboembolic pulmonary hypertension, new from last echocardiogram in August. 11. Hypertension. Continue Lopressor 50 mg twice daily, hydralazine 10 mg IV push every 6 hours as needed. 12. Hyperlipidemia. Hold Lipitor. 13. Diabetes mellitus type 2, labile blood sugars. Continue NovoLog scale before meals and at bedtime. Hold Actos 30 mg daily. 14. Tobacco use and dependence. Smoking cessation. 15. COPD, stable. 16. Gastroesophageal reflux disease. Protonix 40 mg IV daily. 17. Diabetic neuropathy. Hold gabapentin. Patient put on low dose of Dilaudid if needed for pain. 18. Recurrent depression. Continue nortriptyline 25 mg daily. 19. DVT prophylaxis. Continue heparin 5000 units subcu every 8 hours. CODE STATUS: Full code DISCHARGE PLAN Subacute rehab at [facility] or [facility]. Impression and plan of care have been directed as dictated by the signing physician. Kathe North nurse practitioner acting as scribe for signing physician. Objective - Vital Signs Vital signs: Vital Signs Temp 98.3 F 10/19/20 04:00 Pulse 80 10/19/20 07:00 Resp 15 10/19/20 07:00 BP 151/88 10/19/20 07:00 Pulse Ox 98 10/19/20 07:00 Intake & Output 10/18/20 10/19/20 10/19/20 18:59 06:59 18:59 Intake Total 318.289 120 10 Output Total 650 2305 275 Balance -331.711 -2185 -265 Weight 109 kg Intake: IV 100 120 10 0.9@10 100 120 10 Intake, IV Titration 118.289 Amount Heparin Sod,Pork in 0.45% 118.289 NaCl 25,000 unit In 0.45 % NaCl 1 250ml.bag @ 18 UNITS/KG/HR 21.186 mls/hr IV .[id number] [facility] Rx#: [id number] Lipid 100 Dextrose 5% in Water 1, 100 000 ml @ 100 mls/hr IV . Q11H [facility] with Sodium Bicarb (1 Meq/ml) 100 ml Rx#:[id number] Output: Urine 650 2305 275 Other: Voiding Method Indwelling Catheter Indwelling Catheter # Bowel Movements 1 - Labs CBC & Chem 7: 10/19/20 04:11 10/19/20 04:11 Labs: Abnormal Lab Results - Last 24 Hours (Table) 10/18/20 10/18/20 10/18/20 Range/Units 11:58 13:19 13:33 MCV (80.0-100.0) fL MCH (25.0-35.0) pg MCHC (31.0-37.0) g/dL RDW (11.5-15.5) % Plt Count (150-450) k/uL Lymphocytes # (1.0-4.8) k/uL APTT >200.0 H* (22.0-30.0) sec Carbon Dioxide (22-30) mmol/L BUN (7-17) mg/dL Creatinine (0.52-1.04) mg/dL Glucose (74-99) mg/dL POC Glucose (mg/dL) 139 H 174 H (75-99) mg/dL Calcium (8.4-10.2) mg/dL AST (14-36) U/L ALT (4-34) U/L Total Protein (6.3-8.2) g/dL Albumin (3.5-5.0) g/dL 10/18/20 10/18/20 10/19/20 Range/Units 16:37 20:12 04:11 MCV (80.0-100.0) fL MCH (25.0-35.0) pg MCHC (31.0-37.0) g/dL RDW (11.5-15.5) % Plt Count (150-450) k/uL Lymphocytes # (1.0-4.8) k/uL APTT (22.0-30.0) sec Carbon Dioxide 35 H (22-30) mmol/L BUN 78 H (7-17) mg/dL Creatinine 3.65 H (0.52-1.04) mg/dL Glucose 107 H (74-99) mg/dL POC Glucose (mg/dL) 185 H 155 H (75-99) mg/dL Calcium 8.1 L (8.4-10.2) mg/dL AST 459 H (14-36) U/L ALT 971 H (4-34) U/L Total Protein 5.3 L (6.3-8.2) g/dL Albumin 2.7 L (3.5-5.0) g/dL 10/19/20 10/19/20 Range/Units 04:11 07:05 MCV 79.3 L (80.0-100.0) fL MCH 23.6 L (25.0-35.0) pg MCHC 29.8 L (31.0-37.0) g/dL RDW 17.8 H (11.5-15.5) % Plt Count 110 L (150-450) k/uL Lymphocytes # 0.9 L (1.0-4.8) k/uL APTT (22.0-30.0) sec Carbon Dioxide (22-30) mmol/L BUN (7-17) mg/dL Creatinine (0.52-1.04) mg/dL Glucose (74-99) mg/dL POC Glucose (mg/dL) 131 H (75-99) mg/dL Calcium (8.4-10.2) mg/dL AST (14-36) U/L ALT (4-34) U/L Total Protein (6.3-8.2) g/dL Albumin (3.5-5.0) g/dL Microbiology - Last 24 Hours (Table) 10/17/20 10:58 Blood Culture - Preliminary Blood No Growth after 24 hours 10/17/20 11:05 Blood Culture - Preliminary Blood No Growth after 24 hours
--- NOTE | 2020-10-19 13:03 | PN ---
PROGRESS NOTE Patient is seen for followup for acute kidney injury. Her renal function has improved with improved urine output. Creatinine is also slightly decreased. The patient is currently being diuresed. Overall she states she is feeling much better. She looks better as well. Mentation has improved significantly and is back to normal. PHYSICAL EXAMINATION: On examination today, blood pressure is 140/78, heart rate 89 per minute. Patient is afebrile. EXAMINATION OF THE HEART: S1, S2. EXAMINATION OF THE LUNGS: Bilateral breath sounds are heard. ABDOMEN: Soft, obese. Examination of lower extremities shows edema 2+ bilaterally. TIPPLE REPAIRER exam grossly intact. LABS: Labs show sodium of 143, potassium 4.8, chloride 100, CO2 of 35, BUN 78, creatinine 3.65. ASSESSMENT: 1. Acute kidney injury, acute tubular necrosis, initially quite oliguric, currently with improved urine output and improving renal function. No need for renal replacement therapy at this time. Continue to diurese patient. 2. Chronic kidney disease secondary to diabetic kidney disease. Previous creatinine as low as 1.3 in 2018, but in August of 2020 creatinine has been mostly around 1.6- 1.9. The patient does have 3+ protein in her urine. 3. Hypernatremia, currently improved. 4. Hyperkalemia associated with acute kidney injury. Serum potassium currently within normal range down from 7.2 on initial admission. 5. Acute hypoxic respiratory failure secondary to congestive heart failure and volume overload. 6. Congestive heart failure acute on top of chronic, mostly diastolic with severe concentric left ventricular hypertrophy noted on the echocardiogram. 7. Severe pulmonary hypertension. PLAN: Continue to diurese patient. Monitor electrolytes. Continue with Zaroxolyn and Lasix and repeat labs in a.m. MMODL / IJN: [id number] /
[2020-10-19 17:10] LABS: Glucose,Whole Blood 180 mg/dL (75-99)
[2020-10-19] MEDS: MONTELUKAST 10 MG TAB PO SCH (20:27)
[2020-10-19] MEDS: MELATONIN 3 MG TABLET PO SCH (20:27)
[2020-10-19 20:37] LABS: Glucose,Whole Blood 185 mg/dL (75-99)
[2020-10-20 06:38] LABS: Glucose,Whole Blood 194 mg/dL (75-99)
[2020-10-20] MEDS: INSULIN ASPART (NovoLOG) 100 UNIT/ML VIAL SQ SCH ×4 (06:41→20:33)
[2020-10-20 08:30] LABS: Calcium 8.3 mg/dL (8.4-10.2); Potassium 4.6 mmol/L (3.5-5.1)
--- NOTE | 2020-10-20 09:30 | PN ---
PROGRESS NOTE Mrs Rinaldi is in sinus rhythm, comfortable, doing well. She has significant obstructive sleep apnea with pulmonary hypertension. There was no evidence of pulmonary embolism. She is doing well. Oxygenation is better. Advised to follow up closely with Dr. Aguilar after discharge and consider sleep study. JVD is evident, 1 cm. No carotid bruit. S1-S2 heard normally, distantly. Lungs reveal improved air entry. Abdomen and lower extremity exam is unremarkable. Plan is to continue current medications. We will see her as needed. MMODL / IJN: [id number] /
[2020-10-20] MEDS: HEPARIN SODIUM,PORCINE/PF 5,000 UNIT/0.5 ML SYRINGE SQ SCH ×2 (10:03→20:26)
[2020-10-20] MEDS: FUROSEMIDE 10 MG/ML 10 ML VIAL IV SCH ×2 (10:03→20:26)
[2020-10-20] MEDS: PANTOPRAZOLE 40 MG TABLET PO SCH (10:04)
[2020-10-20] MEDS: metOLazone 5 MG TAB PO SCH (10:04)
[2020-10-20] MEDS: ASPIRIN 81 MG PO SCH (10:04)
[2020-10-20] MEDS: NORTRIPTYLINE 25 MG CAP PO SCH (10:04)
[2020-10-20] MEDS: SENNOSIDES-DOCUSATE SODIUM 1 EACH TAB PO SCH ×2 (10:04→20:27)
[2020-10-20] MEDS: METOPROLOL TARTRATE 50 MG TAB PO SCH ×2 (10:04→20:27)
--- NOTE | 2020-10-20 10:05 | P.PN ---
Subjective Patient is seen in follow-up for acute kidney injury on chronic kidney disease. Renal function a little better today. Bicarb level XLI. No chest pain or shortness of breath. Edema improved. Vital signs are stable. General: The patient appeared well nourished and normally developed. HEENT: Head exam is unremarkable. Neck is without jugular venous distension. LUNGS: Breath sounds decreased. HEART: Rate and Rhythm are regular. ABDOMEN: Soft, no distention. EXTREMITITES: 1+ edema right lower extremity. Trace edema left lower extremity. Objective - Vital Signs Vital signs: Vital Signs Temp 97.9 F 10/20/20 08:35 Pulse 90 10/20/20 08:35 Resp 16 10/20/20 08:35 BP 133/81 10/20/20 08:35 Pulse Ox 98 10/20/20 08:35 Intake & Output 10/19/20 10/20/20 10/20/20 18:59 06:59 18:59 Intake Total 1210 100 Output Total 1305 1225 1500 Balance -95 -1225 -1400 Weight 107 kg Intake: IV 70 0.9@10 70 Oral 1140 100 Output: Urine 1305 1225 1500 Other: Voiding Method Indwelling Catheter Indwelling Catheter - Labs CBC & Chem 7: 10/19/20 04:11 10/20/20 07:38 Labs: Abnormal Lab Results - Last 24 Hours (Table) 10/19/20 10/19/20 10/19/20 Range/Units 10:49 16:45 20:21 Chloride (98-107) mmol/L Carbon Dioxide (22-30) mmol/L BUN (7-17) mg/dL Creatinine (0.52-1.04) mg/dL Glucose (74-99) mg/dL POC Glucose (mg/dL) 167 H 180 H 185 H (75-99) mg/dL Calcium (8.4-10.2) mg/dL 10/20/20 10/20/20 Range/Units 06:37 07:38 Chloride 97 L (98-107) mmol/L Carbon Dioxide 41 H* (22-30) mmol/L BUN 79 H (7-17) mg/dL Creatinine 3.29 H (0.52-1.04) mg/dL Glucose 161 H (74-99) mg/dL POC Glucose (mg/dL) 194 H (75-99) mg/dL Calcium 8.3 L (8.4-10.2) mg/dL Microbiology - Last 24 Hours (Table) 10/17/20 11:05 Blood Culture - Preliminary Blood No Growth after 48 hours 10/17/20 10:58 Blood Culture - Preliminary Blood No Growth after 48 hours Assessment and Plan Plan: Assessment: 1. Acute kidney injury secondary to ATN secondary to cardiorenal syndrome. Renal function a little better today. Creatinine 3.29 today. 2. Chronic kidney disease stage IIIB with baseline creatinine 1.6-1.9 secondary to diabetic kidney disease. 3. Hyperkalemia on admission. Resolved. 4. Acute on chronic diastolic CHF and moderate tricuspid regurgitation and severe pulmonary hypertension. 5. Metabolic alkalosis secondary to diuresis. 6. Diabetes mellitus. Plan: Decrease Lasix to 60 mg IV twice daily. Stop metolazone. Add Diamox 250 mg twice a day. Maintain low salt diet. Repeat electrolytes in the morning.
--- NOTE | 2020-10-20 10:28 | P.PN ---
Subjective Progress Note Date: 10/20/20 60-year-old female patient with past medical history of COPD, CHF with the diastolic dysfunction, chronic kidney disease stage III, diabetes mellitus type 2 with diabetic gastroparesis and diabetic neuropathy, morbid obesity, obstructive sleep apnea, hypertension, hyperlipidemia who was recently hospital ized from 08/24/2020 through 08/29/2020 for acute exacerbation of diastolic CHF. She was discharged home on oral Lasix 40 mg twice a day in addition to multiple other medications, she had troponin elevation during her last visit which was felt to be due to her abnormal renal function. Her echocardiogram from 08/24/2020 showed severe concentric LVH, with an EF between 55 and 60%, trace mitral regurg, right-sided pressures were normal at less than 35 mmHg. Patient was brought into the emergency department per EMS on oral 10/16/2020 with worsening shortness of breath, altered mental status, weakness, poor appetite over the past couple of days prior to admission. Patient's daughter went to her house to check on her mother and found her in rest or distress and poorly responsive, EMS arrived and patient's pulse ox was in the low 70s, chest x-ray in emergency department showed mild to moderate CHF with bibasilar opacities and probable trace left pleural effusion that was previously noted on her previous admission, brain CT showed no acute intracranial abnormality, EKG showed normal sinus rhythm, patient was placed on BiPAP support with pressures of 12 5 and FiO2 of 100%. Blood gas was obtained showing acute on chronic hypercapnic respiratory failure with pO2 of 157, pCO2 of 82, and pH of 7.21, the rest of the blood work was reviewed showing normal white count 7.6, hemoglobin of 12.1, platelet count was 1:30, d-dimer was 9.73, INR was 1.3, potassium was 7.2, BUN was 71, creatinine was 3.56, glucose was 135, no significant elevation of liver enzymes with AST of 6442, and ALT of 2889, troponin was elevated at 2.160. Urinalysis showed 3+ protein, but no clear evidence of urinary tract infection, patient was checked for influenza, RSV and now COVID-19 and was found to be nega tive. Serum alcohol level was less than 10, acetaminophen level was less than 10. Lactic acid was normal at 1.7. Hent was given Ancef sodium bicarbonate in the emergency department, hyperkalemia was treated with D50, regular insulin, she was given 30 g of Kayexalate in the emergency department. She appears to be generally fluid overloaded, with extensive edema in her lower extremities she was oliguric and she was given 80 mg of Lasix. Nephrology has been consulted. This morning she is more responsive, remains on BiPAP support with above- mentioned settings, she is able to provide simple answers, she any fever or chills, denied any chest pain, she did state that she was increasingly more short of breath and noted increasing lower extremity edema. She denies being oxygen dependent on a regular basis. Her pulse ox is 99%, she has remained afebrile through the night, blood pressures have been stable, she only produced 100 mL in urine output despite the Lasix challenge. This morning her chest x- ray is showing essentially stable findings of mild to moderate perihilar and bibasilar hazy opacities. Ultrasound of the abdomen was obtained showing questionable 2.4 cm right hepatic focus versus prominent pyramid, gallbladder wall appeared thickened with fluid seen adjacent to the gallbladder, common bile duct portion seen appeared within normal limits, kidneys with no evidence of hydronephrosis. CT of the abdomen and pelvis was obtained showing cardiomegaly with pleural effusions and pulmonary basilar consolidation and atelectasis, ascites, subcutaneous edema no discrete liver mass was identified, kidneys were of normal size with no hydronephrosis, ureters were not dilated. There is no evidence of bowel obstruction, there were multiple sigmoid diverticula without a ny sign of diverticulitis. Follow-up blood work this morning shows a white blood cell count of 8.7, hemoglobin of 11.7, platelet count is 115, sodium of 144, potassium 6.6, chloride is 109, renal profile slightly improved, with B1 at 74, and creatinine of 3.72, AST is down to 4438, and ALT of 2240, alkaline phosphatase is within normal limits at 54. On 10/18/2020 patient seen in follow-up in intensive care unit, she is much more alert and responsive on today's exam. She is resting comfortably in bed, she is oriented to person, place and the month, the year, seems to be a bit inattentive, but overall mentation has significantly improved in the last 24 hours, tshe did go on BiPAP support last night sugars of 12/5 and FiO2 of 65%. She was switched over to high flow nasal cannula which is currently off the patient's face, removed it inadvertently, and her pulse ox right now is 86%. Does not seem to be in any acute distress, supplement oxygen was placed back on the patient's face and O2 sat did come up to 93%, lung sounds reveal diminished breath sounds at the bases, with bibasilar crackles. He remains significantly fluid overloaded, and she is actually positive fluid balance over the last 24 hours of 1.3 L. Has significant generalized edema including her bilateral lower extremities, abdomen, sacral area. However mentation is much improved, and she seems to breathing quite comfortably. Even several doses of IV Lasix yesterday, seen urine in order of 50-75 ML per hour. Is on 5% dextrose with 3 A of bicarbonate at a rate of 85 ML per hour. On today's labs are bicarbonate concentration is 37, potassium is 5.5, BUN of 76 and creatinine is 3.92. Her liver enzymes are trending down, AST is 1276, ALT is 1564, alkaline phosphatase is 67. Her troponins are trending down, from 2.160 on admission, to 1.610, and 1.560. D-dimer was elevated on admission, her lower extremity Dopplers did not show definite evidence of DVT. Cardiology is rounding and patient is being star rajinder on heparin infusion for possibility of pulmonary embolism, VQ scan per cardiology is pending. Last night patient was hypoglycemic, and she was given D50 IV push. Patient is now tolerating oral intake, and her appetite is fair she is consuming about 40-50% of her meal. Cardiogram showed preserved LV function with EF between 55-60%, severe enlargement of the right ventricle, with paradoxical motion of the right ventricular septum consistent with fluid overload or elevated right ventricular end-diastolic pressure, there was evidence of severe pulmonary hypertension with right-sided pressures of 69 mmHg. Inferior vena cava was dilated with poor inspiratory collapse estimated right atrial pressure of 20 mmHg On 10/19/2020 patient seen in follow-up in intensive care unit, she is awake and alert, oriented 3, in bed, watching TV, breathing comfortably, she is currently on 2 L of oxygen her pulse ox is 96%, she did wear BiPAP last night with pressures 12/5 and FiO2 of 65%, tolerated it well. Her 0.9 normal saline is infusing at 10 ML per hour, no other drips, she is in -2.5 L fluid balance over the last 24 hours, she remains on Lasix 60 mg every 8 hours, today's chest x-ray was reviewed and cardiomegaly with left greater than right bilateral lower lung patchy infiltrates small left greater than right pleural effusions. Overall no significant change compared to previous chest x-ray from yesterday, generalized edema is improving. Today's labs have been reviewed white blood cell count of 5.7, hemoglobin of 11.8, platelet count is 110, sodium is 143, potassium is 4.8, chloride is 100, CO2 35, B1 is 78, creatinine is 3.65, and her renal profile shows slight improvement from yesterday. Her enzymes are improving as well, a ST is 459, ALT is 971, alkaline phosphatase is 62. VQ scan was completed yesterday showing low probability of pulmonary embolism, and her heparin drip has been discontinued and patient was switched back over to subcutaneous heparin 5000 mg subcutaneous injections twice daily. Overall no acute events overnight, she is in sinus mechanism, with a controlled rate, blood pressure stable 140/78. No altered mentation, fever or chills, no complaints of chest pain no cough or congestion. 10/20/2020, patient is outside the intensive care unit and she is currently on a medical floor. She is doing well. Currently she is still being diuresed with I V Lasix and the patient is receiving Lasix 60 mg IV push every 12 hours. Overall fluid balance since yesterday has been negative still and the patient is a negative fluid balance of 1.3 L. Her volume status continues to improve. We are closely monitoring her renal function also in the patient's creatinine is down to 3.29 with a BUN of 79. Noted the patient has an acute on top of chronic kidney insufficiency. Serum bicarb is 41. There are current pulse ox is in order of 98% on 2 L about 2 by nasal cannula. Her overall condition is stabilized considerably. VQ scan was of a low probability. The patient was taken off the IV heparin Objective - Vital Signs Vital signs: Vital Signs Temp 97.9 F 10/20/20 08:35 Pulse 90 10/20/20 08:35 Resp 16 10/20/20 08:35 BP 133/81 10/20/20 08:35 Pulse Ox 98 10/20/20 08:35 Intake & Output 10/19/20 10/20/20 10/20/20 18:59 06:59 18:59 Intake Total 1210 100 Output Total 1305 1225 1500 Balance -95 -1225 -1400 Weight 107 kg Intake: IV 70 0.9@10 70 Oral 1140 100 Output: Urine 1305 1225 1500 Other: Voiding Method Indwelling Catheter Indwelling Catheter - Exam GENERAL EXAM: 60-year-old -N[place]alese female, currently on 2 L of oxygen and pulse ox is 96% awake and alert, oriented 3 comfortable in no apparent distress. HEAD: Normocephalic/atraumatic. EYES: Normal reaction of pupils, equal size. Conjunctiva pink, sclera white. NOSE: Clear with pink turbinates. THROAT: No erythema or exudates. NECK: No masses, no JVD, no thyroid enlargement, no adenopathy. CHEST: No chest wall deformity. Symmetrical expansion. LUNGS: Equal air entry with no crackles, wheeze, rhonchi or dullness. CVS: Regular rate and rhythm, normal S1 and S2, no gallops, no murmurs, no rubs ABDOMEN: Soft, obese, nontender. No hepatosplenomegaly, normal bowel sounds, no guarding or rigidity. EXTREMITIES: No clubbing, lysed edema including lower extremity edema, truncal sacral and abdominal wall 2+ pulses and upper and lower extremities. MUSCULOSKELETAL: Muscle strength and tone normal. SPINE: No scoliosis or deformity SKIN: No rashes CENTRAL NERVOUS SYSTEM: Alert, oriented 3. No focal deficits, tone is normal in all 4 extremities. - Labs CBC & Chem 7: 10/19/20 04:11 10/20/20 07:38 Labs: Abnormal Lab Results - Last 24 Hours (Table) 10/19/20 10/19/20 10/19/20 Range/Units 10:49 16:45 20:21 Chloride (98-107) mmol/L Carbon Dioxide (22-30) mmol/L BUN (7-17) mg/dL Creatinine (0.52-1.04) mg/dL Glucose (74-99) mg/dL POC Glucose (mg/dL) 167 H 180 H 185 H (75-99) mg/dL Calcium (8.4-10.2) mg/dL 10/20/20 10/20/20 Range/Units 06:37 07:38 Chloride 97 L (98-107) mmol/L Carbon Dioxide 41 H* (22-30) mmol/L BUN 79 H (7-17) mg/dL Creatinine 3.29 H (0.52-1.04) mg/dL Glucose 161 H (74-99) mg/dL POC Glucose (mg/dL) 194 H (75-99) mg/dL Calcium 8.3 L (8.4-10.2) mg/dL Microbiology - Last 24 Hours (Table) 10/17/20 11:05 Blood Culture - Preliminary Blood No Growth after 48 hours 10/17/20 10:58 Blood Culture - Preliminary Blood No Growth after 48 hours Assessment and Plan Plan: #1. Acute on chronic hypercapnic respiratory failure related to acute exacerbation of CHF with previous document a diastolic dysfunction. The patient is currently off BiPAP support and currently she is improved on 2 L of oxygen by nasal cannula #2. Altered mental status, due to the above, brain CT showed no acute abnormality, improved, , mental status is back to normal #3. Acute kidney injury as the on top of chronic kidney disease, creatinine is improving and the patient is on Lasix #4. Hyperkalemia, recovered #5. Shock liver, possibly related to hypoperfusion, improving. CT of the abdomen showed no discrete liver mass, recovered and LFTs are improving #6. Troponin elevation, rule out possibility of non-ST elevated myocardial infarction, cardiology is following #7. Elevated d-dimer, extremity Dopplers are negative for DVT, VQ scan is low probability for pulmonary embolism and heparin infusion has been discontinued and patient was switched back to prophylactic heparin injections #8. History of diastolic CHF #9. Recent hospitalization in August for acute exacerbation of CHF #10. History of COPD not oxygen dependent at baseline #11. Obstructive sleep apnea #12. Hypertension #13. Hyperlipidemia #14. Diabetes mellitus type 2 with gastroparesis and neuropathy #15. Former smoker Plan: Continue on Lasix 60 mg every 12 hours Creatinine is improving and the patient is a negative fluid balance VQ showed low probability of pulmonary embolism heparin drip has been dis continued and patient is on prophylactic doses of subcutaneous heparin injections Today's chest x-ray has been reviewed showing essentially stable findings, small bilateral pleural effusions left greater than right Provide incentive spirometer, physical therapy consultation Altered mentation, hemodynamically stable Tolerating oral diet No acute events overnight continue to follow
[2020-10-20] MEDS: acetaZOLAMIDE 250 MG TAB PO SCH ×2 (11:05→20:27)
[2020-10-20 11:35] LABS: Glucose,Whole Blood 182 mg/dL (75-99)
--- NOTE | 2020-10-20 15:53 | P.PN ---
Subjective Progress Note Date: 10/20/20 HISTORY OF PRESENT ILLNESS This is a 60-year-old female patient at [facility] with past medical history significant for COPD, diabetes mellitus type 2, gastroesophageal reflux disease, hypertension, hyperlipidemia, generalized osteoarthritis, remote history of tobacco use and dependence. Patient had recent hospitalization in August 24 through August 29 [facility] for acute respiratory failure secondary to acute diastolic heart failure, acute kidney injury and metabolic encephalopathy. A cardiogram at that time revealed severe concentric left hypertrophy with EF of 55-60%, trace mitral regurgitation. Apparently patient's daughter was trying to reach her for the past 3 days and she went over to check on her and found her poorly responsive. EMS was contacted and pulse ox was initially in the 70s. Patient was brought into [facility] emergency center for evaluation. Patient was afebrile, heart rate 80, blood pressure 152/104 and pulse ox 96% on nonrebreather. EKG sinus with right axis deviation. WBC 7.6, hemoglobin 12.1, platelet count 130. D-dimer 9.73. Sodium 145, potassium 7.2, chloride 106, CO2 30, BUN 71 and creatinine 3.56. Blood sugar 134. AST 6442, ALT 2889, CK 476. Troponin 2.160. Urinalysis was negative for infection. Influenza, RSV and colon testing all not detected. Chest x-ray revealed mild to moderate CHF with bibasilar opacities and probable trace left pleural effusion. CAT scan of the brain showed no acute intracranial abnormality. Echocardiogram reveals severe concentric left ventricular hypertrophy with EF 55-60%, mild mitral regurgitation, mild aortic valve sclerosis, moderate tricuspid regurgitation, severe pulmonary hypertension Renal ultrasound revealed questionable 2.4 cm right hepatic focus versus pr ominent pyramid. Consider CAT scan for further evaluation. Small perihepatic fluid. Gallbladder wall thickening without definite cholelithiasis, may be reactive due to fluid overload versus hepatic congestion. Nonspecific heterogenous liver without focal lesion may relate to chronic disease. CAT scan of the abdomen and pelvis without contrast revealed cardiomegaly with pleural effusions and pulmonary basilar consolidation and atelectasis. Ascites. Saphenous edema. Consistent with chronic heart failure. No discrete liver mass identified. Bilateral lower extremity ultrasound was negative for DVT bilaterally. Bilateral lower extremity subcutaneous edema. Right popliteal fossa cyst dominga suring 3.8 cm. Repeat chest x-ray this morning reveals CHF. She has been admitted into the intensive care unit and multiple consultants on her case including pulmonary medicine for intensive care management. Patient has been seen by cardiology, acute coronary syndrome ruled out, atorvastatin on hold, losartan on hold and plan to continue Lopressor. Patient has been evaluated by nephrology and received any milligrams of IV Lasix followed by 30 mL of output per 2 hour, subsequently started on bicarb drip with improved renal output 10/18: Patient remains in the intensive care unit. Due to changes on echocardiogram, cardiology has ordered VQ scan to rule out pulmonary embolism. Her ultrasound of lower extremities was negative for DVT bilaterally. Patient has also been started on heparin drip. Patient states that she slept well last night. Her breathing is good today. She denies having any chest pain. Edema is improved. She remains with Hyatt catheter in place. Patient has been a febrile, heart rate 89, blood pressure 105/62, pulse ox 93% on 51 nasal cannula 5 L. Repeat blood work reveals WBC 5.6, hemoglobin 11.5, platelet count 93. INR 1.2. Blood sugars in the 200s but at 3 AM was 47. Hypoglycemia was treated. Repeat troponins are 1.610 and 1.560. CK 168. Total bilirubin 0.6, AST 1276, ALT 1564. Sodium 145, potassium 5.5, chloride 103, CO2 37, BUN 76 and creatinine 3.92. Acute hepatitis panel was negative. Repeat chest x-ray reveals heart failure with increased small right pleural effusion. Patient is followed by multiple consultants including pulmonary medicine, cardiology and nephrology. Patient is status post sodium bicarb and followed closely by neph rology. No plan for dialysis at this point. 10/19: She is seen today in the intensive care unit but has been cleared for transfer to the cardiac stepdown unit. Patient is sitting up in bed appears in no acute distress. She is down to 2 L oxygen nasal cannula. Lower extremity edema is improving. hall monitor is in normal sinus rhythm. She's been afebrile, heart rate 89, respiratory rate 27, blood pressure 140/78, pulse ox 95%. VQ scan was low probability for pulmonary embolism. Patient is now on subcu heparin. Repeat chest x-ray reveals cardiomegaly with left greater than right bilateral lower lung patchy infiltrates and/or atelectasis likely small left greater than right effusions redemonstrated. No significant change. Repeat blood work reveals WBC 5.7, hemoglobin 11.8, platelet count 110. Sodium 143, potassium 4.8, chloride 100, CO2 35, BUN 78 and creatinine 3.65. This is minimally improved from yesterday. Blood sugars are running between 170s and 167. Total bilirubin 0.7, AST 459, ALT 971, alkaline phosphatase 62. Blood cultures no growth after 24 hours. Cardiology is planning to continue current regime. She is continued on Lasix 60 mg IV every 8 hours. From urology is not planning for dialysis at this point. 10/20 patient examined bedside resting comfortably in bed. Vitals examined patient is currently on 2 L of oxygen. Patient is currently responding well to the diagnosis. Had negative fluid balance of 1.3 L. We'll status continues to improve. Evaluation patient's medical patient's Creatinine this morning has dropped to 3.2 night from 3.65 BUN 79, glucose 161, normal liver enzymes. Nephrology and pulmonary following the patient. Lasix decreased to 60 IV twice a day. Metolazone discontinued. Diamox initiated at 250 minute gram twice a day. Consultants documentations revised reviewed. VQ scan was reviewed suggestive low probability. Heparin was discontinued. REVIEW OF SYSTEMS Constitutional: No fever, no chills, no night sweats. No weight change. Reports weakness improving, Reports fatigue improving, Reports lethargy improving. Reports daytime sleepiness. EENT: No headache. No blurred vision or double vision, no loss of vision. No loss of Hearing, no ringing in the ears, no dizziness. No nasal drainage or congestion. No epistaxis. No sore throat. Lungs: Denies shortness of breath, cough, no sputum production. No wheezing. Reports shortness of breath with exertion. Cardiovascular: No chest pain, reports lower extremity edema. No palpitations. No paroxysmal nocturnal dyspnea. No orthopnea. No lightheadedness or dizziness. No syncopal episodes. Abdominal: No abdominal pain. No nausea, vomiting. No diarrhea. No constipation. No bloody or tarry stools. No loss of appetite. Genitourinary: No dysuria, increased frequency, urgency. No urinary retention. Musculoskeletal: No myalgias. Reports muscle weakness, Reports gait dysfunction, no frequent falls. No back pain. No neck pain. Integumentary: No wounds, no lesions. No rash or pruritus. Neurologic: No aphasia. No facial droop. Reports change in mentation. No head injury. No headache. No paralysis. No paresthesia. Psychiatric: No depression. No anxiety. Denies insomnia. Endocrine: No abnormal blood sugars. No weight change. Objective - Vital Signs Vital signs: Vital Signs Temp 97.9 F 10/20/20 08:35 Pulse 90 10/20/20 11:40 Resp 18 10/20/20 11:40 BP 129/71 10/20/20 11:40 Pulse Ox 93 L 10/20/20 11:40 Intake & Output 10/19/20 10/20/20 10/20/20 18:59 06:59 18:59 Intake Total 1210 100 Output Total 1305 1225 1500 Balance -95 -1225 -1400 Weight 107 kg Intake: IV 70 0.9@10 70 Oral 1140 100 Output: Urine 1305 1225 1500 Other: Voiding Method Indwelling Catheter Indwelling Catheter Indwelling Catheter - Exam PHYSICAL EXAMINATION Gen: This priscila 60-year-old -Portuguese female. She is resting in ICU bed appears to be comfortable. Patient is currently on O2 at 2 L nasal cannula. HEENT: Head is atraumatic, normocephalic. Pupils equal, round. Sclerae is anicteric. NECK: Supple. No JVD. No lymphadenopathy. No thyromegaly. LUNGS: reveals diminished bilaterally, few expiratory wheeze. Accessory muscle usage No intercostal retractions. HEART: Regular rate and rhythm. No murmur. ABDOMEN: Soft. Bowel sounds are present. No masses. No tenderness. Hyatt catheter with clear santo urine. EXTREMITIES: 2+ bilateral pedal edema, edema to the right thigh. Dorsalis pedis +2 bilaterally. No calf tenderness. NEUROLOGICAL: Patient is awake, oriented to person and place, able to nod to answer simple questions. No focal neuro deficits. - Labs CBC & Chem 7: 10/19/20 04:11 10/20/20 07:38 Labs: Abnormal Lab Results - Last 24 Hours (Table) 10/19/20 10/19/20 10/20/20 Range/Units 16:45 20:21 06:37 Chloride (98-107) mmol/L Carbon Dioxide (22-30) mmol/L BUN (7-17) mg/dL Creatinine (0.52-1.04) mg/dL Glucose (74-99) mg/dL POC Glucose (mg/dL) 180 H 185 H 194 H (75-99) mg/dL Calcium (8.4-10.2) mg/dL 10/20/20 10/20/20 Range/Units 07:38 11:34 Chloride 97 L (98-107) mmol/L Carbon Dioxide 41 H* (22-30) mmol/L BUN 79 H (7-17) mg/dL Creatinine 3.29 H (0.52-1.04) mg/dL Glucose 161 H (74-99) mg/dL POC Glucose (mg/dL) 182 H (75-99) mg/dL Calcium 8.3 L (8.4-10.2) mg/dL Microbiology - Last 24 Hours (Table) 10/17/20 10:58 Blood Culture - Preliminary Blood No Growth after 72 hours 10/17/20 11:05 Blood Culture - Preliminary Blood No Growth after 72 hours Assessment and Plan Plan: ASSESSMENT AND PLAN 1. Acute hypercapnic and hypoxic respiratory failure secondary to acute diastolic heart failure. 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 VQ scan negative for pulmonary embolism. Ultrasound of bilateral lower extremities was negative for DVT. Heparin discontinued 2. Metabolic encephalopathy most likely secondary to hypoxia and renal failure, improved. CAT scan of the brain was negative for acute finding. Continue to monitor closely. 3. Acute kidney injury, acute tubular necrosis. Nephrology consult appreciated. No plan for dialysis at this point. 4. Severe hyperkalemia secondary to acute kidney injury. Patient is status post dextrose, insulin, calcium, bicarb drip. 5. Metabolic acidosis secondary to acute kidney injury and respiratory failure. Off bicarb drip. 6. Shock liver with elevated liver function test secondary to hypoperfusion. Hold atorvastatin. Continue to monitor liver tests. Acute hepatitis panel was negative. 7. Troponin elevation likely due to acute on chronic kidney failure. Cardiology consult appreciated. 8. Thrombocytopenia secondary to acute illness. Continue to monitor. 9. Chronic kidney disease stage III. 10. Severe pulmonary hypertension secondary to chronic thromboembolic pulmonary hypertension, new from last echocardiogram in August. 11. Hypertension. Continue Lopressor 50 mg twice daily, hydralazine 10 mg IV push every 6 hours as needed. 12. Hyperlipidemia. Hold Lipitor. 13. Diabetes mellitus type 2, labile blood sugars. Continue NovoLog scale before meals and at bedtime. Hold Actos 30 mg daily. 14. Tobacco use and dependence. Smoking cessation. 15. COPD, stable. 16. Gastroesophageal reflux disease. Protonix 40 mg IV daily. 17. Diabetic neuropathy. Hold gabapentin. Patient put on low dose of Dilaudid if needed for pain. 18. Recurrent depression. Continue nortriptyline 25 mg daily. 19. DVT prophylaxis. Continue heparin 5000 units subcu every 8 hours. CODE STATUS: Full code DISCHARGE PLAN Subacute rehab at [facility] or [facility]. I commended
[2020-10-20 16:56] LABS: Glucose,Whole Blood 312 mg/dL (75-99)
[2020-10-20] MEDS: MONTELUKAST 10 MG TAB PO SCH (20:27)
[2020-10-20] MEDS: MELATONIN 3 MG TABLET PO SCH (20:27)
[2020-10-20 20:34] LABS: Glucose,Whole Blood 129 mg/dL (75-99)
[2020-10-21 06:17] LABS: Glucose,Whole Blood 131 mg/dL (75-99)
[2020-10-21] MEDS: INSULIN ASPART (NovoLOG) 100 UNIT/ML VIAL SQ SCH ×4 (06:34→20:12)
[2020-10-21 08:00] LABS: Anisocytosis Slight; Basophils % (A) 0 %; Eosinophils # (A) 0.1 k/uL (0-0.7); Eosinophils % (A) 3 %; HCT 35.3 % (34.0-46.0); HGB 10.9 gm/dL (11.4-16.0); Hypochromasia Marked; Lymphocytes # (A) 1.1 k/uL (1.0-4.8); Lymphocytes % (A) 25 %; MCH 24.3 pg (25.0-35.0); MCHC 30.9 g/dL (31.0-37.0); MCV 78.7 fL (80.0-100.0); Mean Platelet Volume 10.9; Microcytosis Slight; Monocytes # (A) 0.5 k/uL (0-1.0); Monocytes % (A) 12 %; Neutrophils # (A) 2.5 k/uL (1.3-7.7); Neutrophils % (A) 58 %; Platelet Count 138 k/uL (150-450); Poikilocytosis Slight; RBC 4.49 m/uL (3.80-5.40); RDW 18.2 % (11.5-15.5); WBC 4.3 k/uL (3.8-10.6)
[2020-10-21 08:27] LABS: Calcium 8.4 mg/dL (8.4-10.2); Magnesium 2.2 mg/dL (1.6-2.3); Potassium 4.1 mmol/L (3.5-5.1)
[2020-10-21] MEDS: HEPARIN SODIUM,PORCINE/PF 5,000 UNIT/0.5 ML SYRINGE SQ SCH ×2 (08:27→20:12)
[2020-10-21] MEDS: ASPIRIN 81 MG PO SCH (08:27)
[2020-10-21] MEDS: FUROSEMIDE 10 MG/ML 10 ML VIAL IV SCH (08:27)
[2020-10-21] MEDS: acetaZOLAMIDE 250 MG TAB PO SCH ×2 (08:27→20:12)
[2020-10-21] MEDS: SENNOSIDES-DOCUSATE SODIUM 1 EACH TAB PO SCH ×2 (08:27→20:12)
[2020-10-21] MEDS: PANTOPRAZOLE 40 MG TABLET PO SCH (08:27)
[2020-10-21] MEDS: METOPROLOL TARTRATE 50 MG TAB PO SCH ×2 (08:28→20:12)
[2020-10-21] MEDS: NORTRIPTYLINE 25 MG CAP PO SCH (08:28)
[2020-10-21 08:46] LABS: Target Cells Present
--- NOTE | 2020-10-21 09:52 | P.PN ---
Subjective Progress Note Date: 10/21/20 60-year-old female patient with past medical history of COPD, CHF with the diastolic dysfunction, chronic kidney disease stage III, diabetes mellitus type 2 with diabetic gastroparesis and diabetic neuropathy, morbid obesity, obstructive sleep apnea, hypertension, hyperlipidemia who was recently hospital ized from 08/24/2020 through 08/29/2020 for acute exacerbation of diastolic CHF. She was discharged home on oral Lasix 40 mg twice a day in addition to multiple other medications, she had troponin elevation during her last visit which was felt to be due to her abnormal renal function. Her echocardiogram from 08/24/2020 showed severe concentric LVH, with an EF between 55 and 60%, trace mitral regurg, right-sided pressures were normal at less than 35 mmHg. Patient was brought into the emergency department per EMS on oral 10/16/2020 with worsening shortness of breath, altered mental status, weakness, poor appetite over the past couple of days prior to admission. Patient's daughter went to her house to check on her mother and found her in rest or distress and poorly responsive, EMS arrived and patient's pulse ox was in the low 70s, chest x-ray in emergency department showed mild to moderate CHF with bibasilar opacities and probable trace left pleural effusion that was previously noted on her previous admission, brain CT showed no acute intracranial abnormality, EKG showed normal sinus rhythm, patient was placed on BiPAP support with pressures of 12 5 and FiO2 of 100%. Blood gas was obtained showing acute on chronic hypercapnic respiratory failure with pO2 of 157, pCO2 of 82, and pH of 7.21, the rest of the blood work was reviewed showing normal white count 7.6, hemoglobin of 12.1, platelet count was 1:30, d-dimer was 9.73, INR was 1.3, potassium was 7.2, BUN was 71, creatinine was 3.56, glucose was 135, no significant elevation of liver enzymes with AST of 6442, and ALT of 2889, troponin was elevated at 2.160. Urinalysis showed 3+ protein, but no clear evidence of urinary tract infection, patient was checked for influenza, RSV and now COVID-19 and was found to be nega tive. Serum alcohol level was less than 10, acetaminophen level was less than 10. Lactic acid was normal at 1.7. Hent was given Ancef sodium bicarbonate in the emergency department, hyperkalemia was treated with D50, regular insulin, she was given 30 g of Kayexalate in the emergency department. She appears to be generally fluid overloaded, with extensive edema in her lower extremities she was oliguric and she was given 80 mg of Lasix. Nephrology has been consulted. This morning she is more responsive, remains on BiPAP support with above- mentioned settings, she is able to provide simple answers, she any fever or chills, denied any chest pain, she did state that she was increasingly more short of breath and noted increasing lower extremity edema. She denies being oxygen dependent on a regular basis. Her pulse ox is 99%, she has remained afebrile through the night, blood pressures have been stable, she only produced 100 mL in urine output despite the Lasix challenge. This morning her chest x- ray is showing essentially stable findings of mild to moderate perihilar and bibasilar hazy opacities. Ultrasound of the abdomen was obtained showing questionable 2.4 cm right hepatic focus versus prominent pyramid, gallbladder wall appeared thickened with fluid seen adjacent to the gallbladder, common bile duct portion seen appeared within normal limits, kidneys with no evidence of hydronephrosis. CT of the abdomen and pelvis was obtained showing cardiomegaly with pleural effusions and pulmonary basilar consolidation and atelectasis, ascites, subcutaneous edema no discrete liver mass was identified, kidneys were of normal size with no hydronephrosis, ureters were not dilated. There is no evidence of bowel obstruction, there were multiple sigmoid diverticula without a ny sign of diverticulitis. Follow-up blood work this morning shows a white blood cell count of 8.7, hemoglobin of 11.7, platelet count is 115, sodium of 144, potassium 6.6, chloride is 109, renal profile slightly improved, with B1 at 74, and creatinine of 3.72, AST is down to 4438, and ALT of 2240, alkaline phosphatase is within normal limits at 54. On 10/18/2020 patient seen in follow-up in intensive care unit, she is much more alert and responsive on today's exam. She is resting comfortably in bed, she is oriented to person, place and the month, the year, seems to be a bit inattentive, but overall mentation has significantly improved in the last 24 hours, tshe did go on BiPAP support last night sugars of 12/5 and FiO2 of 65%. She was switched over to high flow nasal cannula which is currently off the patient's face, removed it inadvertently, and her pulse ox right now is 86%. Does not seem to be in any acute distress, supplement oxygen was placed back on the patient's face and O2 sat did come up to 93%, lung sounds reveal diminished breath sounds at the bases, with bibasilar crackles. He remains significantly fluid overloaded, and she is actually positive fluid balance over the last 24 hours of 1.3 L. Has significant generalized edema including her bilateral lower extremities, abdomen, sacral area. However mentation is much improved, and she seems to breathing quite comfortably. Even several doses of IV Lasix yesterday, seen urine in order of 50-75 ML per hour. Is on 5% dextrose with 3 A of bicarbonate at a rate of 85 ML per hour. On today's labs are bicarbonate concentration is 37, potassium is 5.5, BUN of 76 and creatinine is 3.92. Her liver enzymes are trending down, AST is 1276, ALT is 1564, alkaline phosphatase is 67. Her troponins are trending down, from 2.160 on admission, to 1.610, and 1.560. D-dimer was elevated on admission, her lower extremity Dopplers did not show definite evidence of DVT. Cardiology is rounding and patient is being star rajinder on heparin infusion for possibility of pulmonary embolism, VQ scan per cardiology is pending. Last night patient was hypoglycemic, and she was given D50 IV push. Patient is now tolerating oral intake, and her appetite is fair she is consuming about 40-50% of her meal. Cardiogram showed preserved LV function with EF between 55-60%, severe enlargement of the right ventricle, with paradoxical motion of the right ventricular septum consistent with fluid overload or elevated right ventricular end-diastolic pressure, there was evidence of severe pulmonary hypertension with right-sided pressures of 69 mmHg. Inferior vena cava was dilated with poor inspiratory collapse estimated right atrial pressure of 20 mmHg On 10/19/2020 patient seen in follow-up in intensive care unit, she is awake and alert, oriented 3, in bed, watching TV, breathing comfortably, she is currently on 2 L of oxygen her pulse ox is 96%, she did wear BiPAP last night with pressures 12/5 and FiO2 of 65%, tolerated it well. Her 0.9 normal saline is infusing at 10 ML per hour, no other drips, she is in -2.5 L fluid balance over the last 24 hours, she remains on Lasix 60 mg every 8 hours, today's chest x-ray was reviewed and cardiomegaly with left greater than right bilateral lower lung patchy infiltrates small left greater than right pleural effusions. Overall no significant change compared to previous chest x-ray from yesterday, generalized edema is improving. Today's labs have been reviewed white blood cell count of 5.7, hemoglobin of 11.8, platelet count is 110, sodium is 143, potassium is 4.8, chloride is 100, CO2 35, B1 is 78, creatinine is 3.65, and her renal profile shows slight improvement from yesterday. Her enzymes are improving as well, a ST is 459, ALT is 971, alkaline phosphatase is 62. VQ scan was completed yesterday showing low probability of pulmonary embolism, and her heparin drip has been discontinued and patient was switched back over to subcutaneous heparin 5000 mg subcutaneous injections twice daily. Overall no acute events overnight, she is in sinus mechanism, with a controlled rate, blood pressure stable 140/78. No altered mentation, fever or chills, no complaints of chest pain no cough or congestion. 10/20/2020, patient is outside the intensive care unit and she is currently on a medical floor. She is doing well. Currently she is still being diuresed with I V Lasix and the patient is receiving Lasix 60 mg IV push every 12 hours. Overall fluid balance since yesterday has been negative still and the patient is a negative fluid balance of 1.3 L. Her volume status continues to improve. We are closely monitoring her renal function also in the patient's creatinine is down to 3.29 with a BUN of 79. Noted the patient has an acute on top of chronic kidney insufficiency. Serum bicarb is 41. There are current pulse ox is in order of 98% on 2 L about 2 by nasal cannula. Her overall condition is stabilized considerably. VQ scan was of a low probability. The patient was taken off the IV heparin 10/21/2020, patient has no complaints and she is feeling well. She is still being diuresed aggressively. She is at least 4 L negative since yesterday. Serum bicarb is up to 46. Creatinine is at 3.3 with a mean of 76. Sodium level is at 143. She is alert and oriented 3. No chest pain. No significant shortness of breath. She is on Lasix at a dose of 60 mg IV every 12 hours. Her fluid balance is negative for liters as stated. VQ scan was of a low probability and the patient is currently off anticoagulation. With regards at 4.3 with a hemoglobin of 10.9 Objective - Vital Signs Vital signs: Vital Signs Temp 97.9 F 10/21/20 08:00 Pulse 81 10/21/20 08:00 Resp 16 10/21/20 08:00 BP 150/83 10/21/20 08:00 Pulse Ox 96 10/21/20 08:00 Intake & Output 10/20/20 10/21/20 10/21/20 18:59 06:59 18:59 Intake Total 580 200 Output Total 2800 2525 Balance -2220 -2325 Weight 106.3 kg Intake: Oral 580 200 Output: Urine 2800 2525 Other: Voiding Method Indwelling Catheter Indwelling Catheter - Exam GENERAL EXAM: 60-year-old -[place] female, currently on 2 L of oxygen and pulse ox is 96% awake and alert, oriented 3 comfortable in no apparent distress. HEAD: Normocephalic/atraumatic. EYES: Normal reaction of pupils, equal size. Conjunctiva pink, sclera white. NOSE: Clear with pink turbinates. THROAT: No erythema or exudates. NECK: No masses, no JVD, no thyroid enlargement, no adenopathy. CHEST: No chest wall deformity. Symmetrical expansion. LUNGS: Equal air entry with no crackles, wheeze, rhonchi or dullness. CVS: Regular rate and rhythm, normal S1 and S2, no gallops, no murmurs, no rubs ABDOMEN: Soft, obese, nontender. No hepatosplenomegaly, normal bowel sounds, no guarding or rigidity. EXTREMITIES: No clubbing, lysed edema including lower extremity edema, truncal sacral and abdominal wall 2+ pulses and upper and lower extremities. MUSCULOSKELETAL: Muscle strength and tone normal. SPINE: No scoliosis or deformity SKIN: No rashes CENTRAL NERVOUS SYSTEM: Alert, oriented 3. No focal deficits, tone is normal in all 4 extremities. - Labs CBC & Chem 7: 10/21/20 07:16 10/21/20 07:16 Labs: Abnormal Lab Results - Last 24 Hours (Table) 10/20/20 10/20/20 10/20/20 Range/Units 11:34 16:53 20:22 Hgb (11.4-16.0) gm/dL MCV (80.0-100.0) fL MCH (25.0-35.0) pg MCHC (31.0-37.0) g/dL RDW (11.5-15.5) % Plt Count (150-450) k/uL Chloride (98-107) mmol/L Carbon Dioxide (22-30) mmol/L BUN (7-17) mg/dL Creatinine (0.52-1.04) mg/dL Glucose (74-99) mg/dL POC Glucose (mg/dL) 182 H 312 H 129 H (75-99) mg/dL 10/21/20 10/21/20 10/21/20 Range/Units 06:13 07:16 07:16 Hgb 10.9 L (11.4-16.0) gm/dL MCV 78.7 L (80.0-100.0) fL MCH 24.3 L (25.0-35.0) pg MCHC 30.9 L (31.0-37.0) g/dL RDW 18.2 H (11.5-15.5) % Plt Count 138 L (150-450) k/uL Chloride 95 L (98-107) mmol/L Carbon Dioxide 46 H* (22-30) mmol/L BUN 76 H (7-17) mg/dL Creatinine 3.36 H (0.52-1.04) mg/dL Glucose 132 H (74-99) mg/dL POC Glucose (mg/dL) 131 H (75-99) mg/dL Microbiology - Last 24 Hours (Table) 10/17/20 10:58 Blood Culture - Preliminary Blood No Growth after 72 hours 10/17/20 11:05 Blood Culture - Preliminary Blood No Growth after 72 hours Assessment and Plan Plan: #1. Acute on chronic hypercapnic respiratory failure related to acute exacerbation of CHF with previous document a diastolic dysfunction. The patient is currently off BiPAP support and currently she is improved on 2 L of oxygen by nasal cannula #2. Altered mental status, due to the above, brain CT showed no acute abnormality, improved, , mental status is back to normal #3. Acute kidney injury as the on top of chronic kidney disease, creatinine is improving and the patient is on Lasix #4. Hyperkalemia, recovered #5. Shock liver, possibly related to hypoperfusion, improving. CT of the abdomen showed no discrete liver mass, recovered and LFTs are improving #6. Troponin elevation, rule out possibility of non-ST elevated myocardial infa rction, cardiology is following #7. Elevated d-dimer, extremity Dopplers are negative for DVT, VQ scan is low probability for pulmonary embolism and heparin infusion has been discontinued and patient was switched back to prophylactic heparin injections #8. History of diastolic CHF #9. Recent hospitalization in August for acute exacerbation of CHF #10. History of COPD not oxygen dependent at baseline #11. Obstructive sleep apnea #12. Hypertension #13. Hyperlipidemia #14. Diabetes mellitus type 2 with gastroparesis and neuropathy #15. Former smoker Plan: I went to drop the Lasix down to Lasix 60 mg every 24 hours IV The patient is a negative fluid balance We'll give the patient Diamox to 250 mg IV 2 doses VQ showed low probability of pulmonary embolism heparin drip has been discontinued and patient is on prophylactic doses of subcutaneous heparin injections Today's chest x-ray has been reviewed showing essentially stable findings, small bilateral pleural effusions left greater than right Provide incentive spirometer, physical therapy consultation Altered mentation recovered and the patient has normalized Tolerating oral diet No acute events overnight Try to wean the patient off the oxygen and lung and the saturation remains above 90% Possible home tomorrow depending on her overall condition. continue to follow
[2020-10-21 10:46] LABS: ABG Base Excess 21.3 mmol/L; ABG Oxygen Saturation 92.9 % (94-97); ABG PCO2 67 mmHg (35-45); ABG PH 7.44 (7.35-7.45); ABG PO2 66 mmHg (83-108); ABG TCO2 48 mmol/L (19-24); Allen Test Performed? Yes
[2020-10-21 10:53] LABS: ABG HCO3 46 mmol/L (21-25)
--- NOTE | 2020-10-21 11:05 | P.PN ---
Subjective Patient is seen in follow-up for acute kidney injury on chronic kidney disease. Renal function is stable. Bicarb level 46 today. No chest pain or shortness of breath. Edema improved. Vital signs are stable. General: The patient appeared well nourished and normally developed. HEENT: Head exam is unremarkable. Neck is without jugular venous distension. LUNGS: Breath sounds decreased. HEART: Rate and Rhythm are regular. ABDOMEN: Soft, no distention. EXTREMITITES: 1+ edema right lower extremity. Trace edema left lower extremity. Objective - Vital Signs Vital signs: Vital Signs Temp 97.9 F 10/21/20 08:00 Pulse 81 10/21/20 08:00 Resp 16 10/21/20 08:00 BP 150/83 10/21/20 08:00 Pulse Ox 96 10/21/20 08:00 Intake & Output 10/20/20 10/21/20 10/21/20 18:59 06:59 18:59 Intake Total 580 200 480 Output Total 2800 2525 825 Balance -0451 -7365 -314 Weight 106.3 kg Intake: Oral 580 200 480 Output: Urine 2800 2525 825 Other: Voiding Method Indwelling Catheter Indwelling Catheter - Labs CBC & Chem 7: 10/21/20 07:16 10/21/20 07:16 Labs: Abnormal Lab Results - Last 24 Hours (Table) 10/20/20 10/20/20 10/20/20 Range/Units 11:34 16:53 20:22 Hgb (11.4-16.0) gm/dL MCV (80.0-100.0) fL MCH (25.0-35.0) pg MCHC (31.0-37.0) g/dL RDW (11.5-15.5) % Plt Count (150-450) k/uL ABG pCO2 (35-45) mmHg ABG pO2 (83-108) mmHg ABG HCO3 (21-25) mmol/L ABG Total CO2 (19-24) mmol/L ABG O2 Saturation (94-97) % Chloride (98-107) mmol/L Carbon Dioxide (22-30) mmol/L BUN (7-17) mg/dL Creatinine (0.52-1.04) mg/dL Glucose (74-99) mg/dL POC Glucose (mg/dL) 182 H 312 H 129 H (75-99) mg/dL 10/21/20 10/21/20 10/21/20 Range/Units 06:13 07:16 07:16 Hgb 10.9 L (11.4-16.0) gm/dL MCV 78.7 L (80.0-100.0) fL MCH 24.3 L (25.0-35.0) pg MCHC 30.9 L (31.0-37.0) g/dL RDW 18.2 H (11.5-15.5) % Plt Count 138 L (150-450) k/uL ABG pCO2 (35-45) mmHg ABG pO2 (83-108) mmHg ABG HCO3 (21-25) mmol/L ABG Total CO2 (19-24) mmol/L ABG O2 Saturation (94-97) % Chloride 95 L (98-107) mmol/L Carbon Dioxide 46 H* (22-30) mmol/L BUN 76 H (7-17) mg/dL Creatinine 3.36 H (0.52-1.04) mg/dL Glucose 132 H (74-99) mg/dL POC Glucose (mg/dL) 131 H (75-99) mg/dL 10/21/20 Range/Units 10:43 Hgb (11.4-16.0) gm/dL MCV (80.0-100.0) fL MCH (25.0-35.0) pg MCHC (31.0-37.0) g/dL RDW (11.5-15.5) % Plt Count (150-450) k/uL ABG pCO2 67 H (35-45) mmHg ABG pO2 66 L (83-108) mmHg ABG HCO3 46 H* (21-25) mmol/L ABG Total CO2 48 H (19-24) mmol/L ABG O2 Saturation 92.9 L (94-97) % Chloride (98-107) mmol/L Carbon Dioxide (22-30) mmol/L BUN (7-17) mg/dL Creatinine (0.52-1.04) mg/dL Glucose (74-99) mg/dL POC Glucose (mg/dL) (75-99) mg/dL Microbiology - Last 24 Hours (Table) 10/17/20 10:58 Blood Culture - Preliminary Blood No Growth after 72 hours 10/17/20 11:05 Blood Culture - Preliminary Blood No Growth after 72 hours Assessment and Plan Plan: Assessment: 1. Acute kidney injury secondary to ATN secondary to cardiorenal syndrome. Renal function fairly stable. Creatinine 3.36 today. 2. Chronic kidney disease stage IIIB with baseline creatinine 1.6-1.9 secondary to diabetic kidney disease. 3. Hyperkalemia on admission. Resolved. 4. Acute on chronic diastolic CHF and moderate tricuspid regurgitation and severe pulmonary hypertension. 5. Metabolic alkalosis and respiratory acidosis. 6. Diabetes mellitus. 7. Volume overload. Improved with diuresis. Plan: Decrease Lasix to 40 mg once daily. Metolazone discontinued on October 20. Maintain Diamox 250 mg twice a day. Maintain low salt diet. Repeat electrolytes in the morning.
[2020-10-21 11:29] LABS: Glucose,Whole Blood 192 mg/dL (75-99)
--- NOTE | 2020-10-21 14:14 | P.PN ---
Subjective Progress Note Date: 10/21/20 HISTORY OF PRESENT ILLNESS This is a 60-year-old female patient at [facility] with past medical history significant for COPD, diabetes mellitus type 2, gastroesophageal reflux disease, hypertension, hyperlipidemia, generalized osteoarthritis, remote history of tobacco use and dependence. Patient had recent hospitalization in August 24 through August 29 [facility] for acute respiratory failure secondary to acute diastolic heart failure, acute kidney injury and metabolic encephalopathy. A cardiogram at that time revealed severe concentric left hypertrophy with EF of 55-60%, trace mitral regurgitation. Apparently patient's daughter was trying to reach her for the past 3 days and she went over to check on her and found her poorly responsive. EMS was contacted and pulse ox was initially in the 70s. Patient was brought into [facility] emergency center for evaluation. Patient was afebrile, heart rate 80, blood pressure 152/104 and pulse ox 96% on nonrebreather. EKG sinus with right axis deviation. WBC 7.6, hemoglobin 12.1, platelet count 130. D-dimer 9.73. Sodium 145, potassium 7.2, chloride 106, CO2 30, BUN 71 and creatinine 3.56. Blood sugar 134. AST 6442, ALT 2889, CK 476. Troponin 2.160. Urinalysis was negative for infection. Influenza, RSV and colon testing all not detected. Chest x-ray revealed mild to moderate CHF with bibasilar opacities and probable trace left pleural effusion. CAT scan of the brain showed no acute intracranial abnormality. Echocardiogram reveals severe concentric left ventricular hypertrophy with EF 55-60%, mild mitral regurgitation, mild aortic valve sclerosis, moderate tricuspid regurgitation, severe pulmonary hypertension Renal ultrasound revealed questionable 2.4 cm right hepatic focus versus pr ominent pyramid. Consider CAT scan for further evaluation. Small perihepatic fluid. Gallbladder wall thickening without definite cholelithiasis, may be reactive due to fluid overload versus hepatic congestion. Nonspecific heterogenous liver without focal lesion may relate to chronic disease. CAT scan of the abdomen and pelvis without contrast revealed cardiomegaly with pleural effusions and pulmonary basilar consolidation and atelectasis. Ascites. Saphenous edema. Consistent with chronic heart failure. No discrete liver mass identified. Bilateral lower extremity ultrasound was negative for DVT bilaterally. Bilateral lower extremity subcutaneous edema. Right popliteal fossa cyst dominga suring 3.8 cm. Repeat chest x-ray this morning reveals CHF. She has been admitted into the intensive care unit and multiple consultants on her case including pulmonary medicine for intensive care management. Patient has been seen by cardiology, acute coronary syndrome ruled out, atorvastatin on hold, losartan on hold and plan to continue Lopressor. Patient has been evaluated by nephrology and received any milligrams of IV Lasix followed by 30 mL of output per 2 hour, subsequently started on bicarb drip with improved renal output 10/18: Patient remains in the intensive care unit. Due to changes on echocardiogram, cardiology has ordered VQ scan to rule out pulmonary embolism. Her ultrasound of lower extremities was negative for DVT bilaterally. Patient has also been started on heparin drip. Patient states that she slept well last night. Her breathing is good today. She denies having any chest pain. Edema is improved. She remains with Hyatt catheter in place. Patient has been a febrile, heart rate 89, blood pressure 105/62, pulse ox 93% on 51 nasal cannula 5 L. Repeat blood work reveals WBC 5.6, hemoglobin 11.5, platelet count 93. INR 1.2. Blood sugars in the 200s but at 3 AM was 47. Hypoglycemia was treated. Repeat troponins are 1.610 and 1.560. CK 168. Total bilirubin 0.6, AST 1276, ALT 1564. Sodium 145, potassium 5.5, chloride 103, CO2 37, BUN 76 and creatinine 3.92. Acute hepatitis panel was negative. Repeat chest x-ray reveals heart failure with increased small right pleural effusion. Patient is followed by multiple consultants including pulmonary medicine, cardiology and nephrology. Patient is status post sodium bicarb and followed closely by neph rology. No plan for dialysis at this point. 10/19: She is seen today in the intensive care unit but has been cleared for transfer to the cardiac stepdown unit. Patient is sitting up in bed appears in no acute distress. She is down to 2 L oxygen nasal cannula. Lower extremity edema is improving. environmental monitoring specialist is in normal sinus rhythm. She's been afebrile, heart rate 89, respiratory rate 27, blood pressure 140/78, pulse ox 95%. VQ scan was low probability for pulmonary embolism. Patient is now on subcu heparin. Repeat chest x-ray reveals cardiomegaly with left greater than right bilateral lower lung patchy infiltrates and/or atelectasis likely small left greater than right effusions redemonstrated. No significant change. Repeat blood work reveals WBC 5.7, hemoglobin 11.8, platelet count 110. Sodium 143, potassium 4.8, chloride 100, CO2 35, BUN 78 and creatinine 3.65. This is minimally improved from yesterday. Blood sugars are running between 170s and 167. Total bilirubin 0.7, AST 459, ALT 971, alkaline phosphatase 62. Blood cultures no growth after 24 hours. Cardiology is planning to continue current regime. She is continued on Lasix 60 mg IV every 8 hours. From urology is not planning for dialysis at this point. 10/20 patient examined bedside resting comfortably in bed. Vitals examined patient is currently on 2 L of oxygen. Patient is currently responding well to the diagnosis. Had negative fluid balance of 1.3 L. We'll status continues to improve. Evaluation patient's medical patient's Creatinine this morning has dropped to 3.2 night from 3.65 BUN 79, glucose 161, normal liver enzymes. Nephrology and pulmonary following the patient. Lasix decreased to 60 IV twice a day. Metolazone discontinued. Diamox initiated at 250 minute gram twice a day. Consultants documentations revised reviewed. VQ scan was reviewed suggestive low probability. Heparin was discontinued. 10/21 patient evaluated bedside doing well is comfortable on 2 L of oxygen. Vitals reviewed patient's temp is 97.9 pulse 73 respiratory rate 18 blood pressure 139/88. Labs suggestive hemoglobin 10.9 MCV 78.7 platelet 138 ABG obtained today suggest a bicarb of 46 pCO2 67 improved from 85. Repeat CMP social sodium 143 potassium 4.1 bicarb 46 chloride 95 bun 76 creatinine 3.36 consultants notes reviewed nephrology decrease Lasix to 40 once daily. Metoprolol prednisone has been discontinued Diamox to be continued. Patient is a possible discharge tomorrow. REVIEW OF SYSTEMS Constitutional: No fever, no chills, no night sweats. No weight change. Reports weakness improving, Reports fatigue improving, Reports lethargy improving. Reports daytime sleepiness. EENT: No headache. No blurred vision or double vision, no loss of vision. No loss of Hearing, no ringing in the ears, no dizziness. No nasal drainage or congestion. No epistaxis. No sore throat. Lungs: Denies shortness of breath, cough, no sputum production. No wheezing. Reports shortness of breath with exertion. Cardiovascular: No chest pain, reports lower extremity edema. No palpitations. No paroxysmal nocturnal dyspnea. No orthopnea. No lightheadedness or dizziness. No syncopal episodes. Abdominal: No abdominal pain. No nausea, vomiting. No diarrhea. No consti pation. No bloody or tarry stools. No loss of appetite. Genitourinary: No dysuria, increased frequency, urgency. No urinary retention. Musculoskeletal: No myalgias. Reports muscle weakness, Reports gait dysfunction, no frequent falls. No back pain. No neck pain. Integumentary: No wounds, no lesions. No rash or pruritus. Neurologic: No aphasia. No facial droop. Reports change in mentation. No head injury. No headache. No paralysis. No paresthesia. Psychiatric: No depression. No anxiety. Denies insomnia. Endocrine: No abnormal blood sugars. No weight change. Objective - Vital Signs Vital signs: Vital Signs Temp 97.9 F 10/21/20 11:44 Pulse 73 10/21/20 11:44 Resp 18 10/21/20 11:44 BP 139/88 10/21/20 11:44 Pulse Ox 97 10/21/20 11:44 Intake & Output 10/20/20 10/21/20 10/21/20 18:59 06:59 18:59 Intake Total 580 200 720 Output Total 2800 2525 1625 Balance -2220 -2325 -905 Weight 106.3 kg Intake: Oral 580 200 720 Output: Urine 2800 2525 1625 Other: Voiding Method Indwelling Catheter Indwelling Catheter - Exam PHYSICAL EXAMINATION Gen: This priscila 60-year-old -[place] female. She is resting in ICU bed appears to be comfortable. Patient is currently on O2 at 2 L nasal cannula. HEENT: Head is atraumatic, normocephalic. Pupils equal, round. Sclerae is anicteric. NECK: Supple. No JVD. No lymphadenopathy. No thyromegaly. LUNGS: reveals diminished bilaterally, few expiratory wheeze. Accessory muscle usage No intercostal retractions. HEART: Regular rate and rhythm. No murmur. ABDOMEN: Soft. Bowel sounds are present. No masses. No tenderness. Hyatt catheter with clear santo urine. EXTREMITIES: 2+ bilateral pedal edema, edema to the right thigh. Dorsalis pedis +2 bilaterally. No calf tenderness. NEUROLOGICAL: Patient is awake, oriented to person and place, able to nod to answer simple questions. No focal neuro deficits. - Labs CBC & Chem 7: 10/21/20 07:16 10/21/20 07:16 Labs: Abnormal Lab Results - Last 24 Hours (Table) 10/20/20 10/20/20 10/21/20 Range/Units 16:53 20:22 06:13 Hgb (11.4-16.0) gm/dL MCV (80.0-100.0) fL MCH (25.0-35.0) pg MCHC (31.0-37.0) g/dL RDW (11.5-15.5) % Plt Count (150-450) k/uL ABG pCO2 (35-45) mmHg ABG pO2 (83-108) mmHg ABG HCO3 (21-25) mmol/L ABG Total CO2 (19-24) mmol/L ABG O2 Saturation (94-97) % Chloride (98-107) mmol/L Carbon Dioxide (22-30) mmol/L BUN (7-17) mg/dL Creatinine (0.52-1.04) mg/dL Glucose (74-99) mg/dL POC Glucose (mg/dL) 312 H 129 H 131 H (75-99) mg/dL 10/21/20 10/21/20 10/21/20 Range/Units 07:16 07:16 10:43 Hgb 10.9 L (11.4-16.0) gm/dL MCV 78.7 L (80.0-100.0) fL MCH 24.3 L (25.0-35.0) pg MCHC 30.9 L (31.0-37.0) g/dL RDW 18.2 H (11.5-15.5) % Plt Count 138 L (150-450) k/uL ABG pCO2 67 H (35-45) mmHg ABG pO2 66 L (83-108) mmHg ABG HCO3 46 H* (21-25) mmol/L ABG Total CO2 48 H (19-24) mmol/L ABG O2 Saturation 92.9 L (94-97) % Chloride 95 L (98-107) mmol/L Carbon Dioxide 46 H* (22-30) mmol/L BUN 76 H (7-17) mg/dL Creatinine 3.36 H (0.52-1.04) mg/dL Glucose 132 H (74-99) mg/dL POC Glucose (mg/dL) (75-99) mg/dL 10/21/20 Range/Units 11:28 Hgb (11.4-16.0) gm/dL MCV (80.0-100.0) fL MCH (25.0-35.0) pg MCHC (31.0-37.0) g/dL RDW (11.5-15.5) % Plt Count (150-450) k/uL ABG pCO2 (35-45) mmHg ABG pO2 (83-108) mmHg ABG HCO3 (21-25) mmol/L ABG Total CO2 (19-24) mmol/L ABG O2 Saturation (94-97) % Chloride (98-107) mmol/L Carbon Dioxide (22-30) mmol/L BUN (7-17) mg/dL Creatinine (0.52-1.04) mg/dL Glucose (74-99) mg/dL POC Glucose (mg/dL) 192 H (75-99) mg/dL Microbiology - Last 24 Hours (Table) 10/17/20 10:58 Blood Culture - Preliminary Blood No Growth after 96 hours 10/17/20 11:05 Blood Culture - Preliminary Blood No Growth after 96 hours Assessment and Plan Plan: ASSESSMENT AND PLAN 1. Acute hypercapnic and hypoxic respiratory failure secondary to acute diastol ic heart failure. Patient is continued on BiPAP and followed by pulmonary medicine/peoplesoft crm developer. VQ scan negative for pulmonary embolism. Ultrasound of bilateral lower extremities was negative for DVT. Heparin discontinued continue Lasix 40 IV daily under transitioned to oral tomorrow. 2. Metabolic encephalopathy most likely secondary to hypoxia and renal failure, improved. CAT scan of the brain was negative for acute finding. Continue to monitor closely. 3. Acute kidney injury, acute tubular necrosis. Nephrology consult appreciated. No plan for dialysis at this point. 4. Severe hyperkalemia secondary to acute kidney injury. Patient is status post dextrose, insulin, calcium, bicarb drip. 5. Metabolic acidosis secondary to acute kidney injury and respiratory failure. Off bicarb drip. 6. Shock liver with elevated liver function test secondary to hypoperfusion. Hold atorvastatin. Continue to monitor liver tests. Acute hepatitis panel was negative. 7. Troponin elevation likely due to acute on chronic kidney failure. Cardiology consult appreciated. 8. Thrombocytopenia secondary to acute illness. Continue to monitor. 9. Chronic kidney disease stage III. 10. Severe pulmonary hypertension secondary to chronic thromboembolic pulmonary hypertension, new from last echocardiogram in August. 11. Hypertension. Continue Lopressor 50 mg twice daily, hydralazine 10 mg IV push every 6 hours as needed. 12. Hyperlipidemia. Hold Lipitor. 13. Diabetes mellitus type 2, labile blood sugars. Continue NovoLog scale before meals and at bedtime. Hold Actos 30 mg daily. 14. Tobacco use and dependence. Smoking cessation. 15. COPD, stable. 16. Gastroesophageal reflux disease. Protonix 40 mg IV daily. 17. Diabetic neuropathy. Hold gabapentin. Patient put on low dose of Dilaudid if needed for pain. 18. Recurrent depression. Continue nortriptyline 25 mg daily. 19. DVT prophylaxis. Continue heparin 5000 units subcu every 8 hours. CODE STATUS: Full code DISCHARGE PLAN Subacute rehab at [facility] or [facility]. I commended
[2020-10-21 17:03] LABS: Glucose,Whole Blood 272 mg/dL (75-99)
[2020-10-21 19:55] LABS: Glucose,Whole Blood 177 mg/dL (75-99)
[2020-10-21] MEDS: MONTELUKAST 10 MG TAB PO SCH (20:12)
[2020-10-21] MEDS: MELATONIN 3 MG TABLET PO SCH (20:12)
[2020-10-22 06:13] LABS: Glucose,Whole Blood 153 mg/dL (75-99)
[2020-10-22] MEDS: SENNOSIDES-DOCUSATE SODIUM 1 EACH TAB PO SCH ×3 (07:51→20:34)
[2020-10-22] MEDS: METOPROLOL TARTRATE 50 MG TAB PO SCH ×2 (07:52→20:33)
[2020-10-22] MEDS: ASPIRIN 81 MG PO SCH (07:52)
[2020-10-22] MEDS: PANTOPRAZOLE 40 MG TABLET PO SCH (07:52)
[2020-10-22] MEDS: INSULIN ASPART (NovoLOG) 100 UNIT/ML VIAL SQ SCH ×4 (07:53→20:34)
[2020-10-22] MEDS: acetaZOLAMIDE 250 MG TAB PO SCH ×2 (07:53→20:33)
[2020-10-22] MEDS: HEPARIN SODIUM,PORCINE/PF 5,000 UNIT/0.5 ML SYRINGE SQ SCH ×2 (07:53→20:34)
[2020-10-22] MEDS: NORTRIPTYLINE 25 MG CAP PO SCH (07:54)
--- NOTE | 2020-10-22 08:34 | XR ---
EXAMINATION TYPE: XR chest 1V portable DATE OF EXAM: 10/22/2020 COMPARISON: Chest x-ray 10/19/2020 HISTORY: Congestive heart failure, abnormal chest x-ray TECHNIQUE: Single frontal view of the chest is obtained. FINDINGS: Technique is apical lordotic and rotated. There is some prominence interstitium, perihilar vascular indistinctness. Persistent abnormal density obscures the left hemidiaphragm and heart borde r. Cardiac mediastinal silhouette is likely stable but obscured. There are overlying leads. IMPRESSION: Correlate for pneumonia, difficult to exclude edema, pleural effusion. There is underlyi ng cardiomegaly. Rotated exam.
[2020-10-22 08:39] LABS: Calcium 8.8 mg/dL (8.4-10.2); Magnesium 2.3 mg/dL (1.6-2.3)
[2020-10-22] MEDS ORDERED: FUROSEMIDE 10 MG/ML 10 ML VIAL IV SCH (09:00)
[2020-10-22] MEDS ORDERED: FUROSEMIDE 10 MG/ML 4 ML VIAL IV SCH (09:00)
[2020-10-22 09:08] LABS: Potassium 3.7 mmol/L (3.5-5.1)
--- NOTE | 2020-10-22 11:31 | P.PN ---
Subjective Patient is seen in follow-up for acute kidney injury on chronic kidney disease. Renal function is stable. Bicarb level 43 today. No chest pain or shortness of breath. Edema improved. Currently on 1 L nasal cannula. Blood pressure stable. Vital signs are stable. General: The patient appeared well nourished and normally developed. HEENT: Head exam is unremarkable. Neck is without jugular venous distension. LUNGS: Breath sounds decreased. HEART: Rate and Rhythm are regular. ABDOMEN: Soft, no distention. EXTREMITITES: 1+ edema right lower extremity. Trace edema left lower extremity. Objective - Vital Signs Vital signs: Vital Signs Temp 98.8 F 10/22/20 07:56 Pulse 87 10/22/20 07:56 Resp 18 10/22/20 07:56 BP 143/84 10/22/20 07:56 Pulse Ox 95 10/22/20 07:56 Intake & Output 10/21/20 10/22/20 10/22/20 18:59 06:59 18:59 Intake Total 1200 550 Output Total 2550 1700 Balance -1350 -1150 Weight 100.4 kg Intake: Oral 1200 550 Output: Urine 2550 1700 Other: Voiding Method Indwelling Catheter - Labs CBC & Chem 7: 10/21/20 07:16 10/22/20 07:04 Labs: Abnormal Lab Results - Last 24 Hours (Table) 10/21/20 10/21/20 10/21/20 Range/Units 11:28 17:01 19:54 Chloride (98-107) mmol/L Carbon Dioxide (22-30) mmol/L BUN (7-17) mg/dL Creatinine (0.52-1.04) mg/dL Glucose (74-99) mg/dL POC Glucose (mg/dL) 192 H 272 H 177 H (75-99) mg/dL 10/22/20 10/22/20 Range/Units 06:10 07:04 Chloride 92 L (98-107) mmol/L Carbon Dioxide 43 H* (22-30) mmol/L BUN 74 H (7-17) mg/dL Creatinine 3.31 H (0.52-1.04) mg/dL Glucose 145 H (74-99) mg/dL POC Glucose (mg/dL) 153 H (75-99) mg/dL Microbiology - Last 24 Hours (Table) 10/17/20 10:58 Blood Culture - Preliminary Blood No Growth after 96 hours 10/17/20 11:05 Blood Culture - Preliminary Blood No Growth after 96 hours Assessment and Plan Plan: Assessment: 1. Acute kidney injury secondary to ATN secondary to cardiorenal syndrome. Renal function fairly stable. Creatinine 3.31 today. 2. Chronic kidney disease stage IIIB with baseline creatinine 1.6-1.9 secondary to diabetic kidney disease. 3. Hyperkalemia on admission. Resolved. 4. Acute on chronic diastolic CHF and moderate tricuspid regurgitation and severe pulmonary hypertension. 5. Metabolic alkalosis and respiratory acidosis. 6. Diabetes mellitus. 7. Volume overload. Improved with diuresis. Plan: I will change Lasix to 40 mg orally once daily. Metolazone discontinued on October 20. Maintain Diamox 250 mg twice a day. Maintain low salt diet. Repeat electrolytes in the morning. Anticipate discharge soon. Repeat BMP and magnesium level 2-3 days postdischarge. Diamox to be continued for the next 3 days. Follow-up outpatient in 1 week
[2020-10-22 12:09] LABS: Glucose,Whole Blood 146 mg/dL (75-99)
--- NOTE | 2020-10-22 16:35 | P.DS ---
Providers Date of admission: 10/16/20 18:21 Attending physician: Laurie Palafox Consults: 10/16/20 18:21 Consult Physician Routine Consulting Provider: [facility] Consult Reason/Comments: nstemi Do you want consulting provider notified?: Yes Consult Physician Routine Consulting Provider: Connie Toledo Consult Reason/Comments: acute hyperkalemia, matteo/ckd Do you want consulting provider notified?: Already Contacted Consult Physician Stat Consulting Provider: Nancy Aguilar Consult Reason/Comments: acute hypoxic resp failure, aechf, matteo/ckd, acute hyperkalemia, transaminit Do you want consulting provider notified?: Already Contacted Primary care physician: [facility] Course: HISTORY OF PRESENT ILLNESS This is a 60-year-old female patient at [facility] with past medical history significant for COPD, diabetes mellitus type 2, gastroesophageal reflux disease, hypertension, hyperlipidemia, generalized osteoarthritis, remote history of tobacco use and dependence. Patient had recent hospitalization in August 24 through August 29 [facility] for acute respiratory failure secondary to acute diastolic heart failure, acute kidney injury and metabolic encephalopathy. A cardiogram at that time revealed severe concentric left hypertrophy with EF of 55-60%, trace mitral regurgitation. Apparently patient's daughter was trying to reach her for the past 3 days and she went over to check on her and found her poorly responsive. EMS was contacted and pulse ox was initially in the 70s. Patient was brought into [facility] emergency center for evaluation. Patient was afebrile, heart rate 80, blood pressure 152/104 and pulse ox 96% on nonrebreather. EKG sinus with right axis deviation. WBC 7.6, hemoglobin 12.1, platelet count 130. D-dimer 9.73. Sodium 145, potassium 7.2, chloride 106, CO2 30, BUN 71 and creatinine 3.56. Blood sugar 134. AST 6442, ALT 2889, CK 476. Troponin 2.160. Urinalysis was negative for infection. Influenza, RSV and colon testing all not detected. Chest x-ray revealed mild to moderate CHF with bibasilar opacities and probable trace left pleural effusion. CAT scan of the brain showed no acute intracranial abnormality. Echocardiogram reveals severe concentric left ventricular hypertrophy with EF 55-60%, mild mitral regurgitation, mild aortic valve sclerosis, moderate tricuspid regurgitation, severe pulmonary hypertension Renal ultrasound revealed questionable 2.4 cm right hepatic focus versus prominent pyramid. Consider CAT scan for further evaluation. Small perihepatic fluid. Gallbladder wall thickening without definite cholelithiasis, may be reactive due to fluid overload versus hepatic congestion. Nonspecific heterogenous liver without focal lesion may relate to chronic disease. CAT scan of the abdomen and pelvis without contrast revealed cardiomegaly with pleural effusions and pulmonary basilar consolidation and atelectasis. Ascites. Saphenous edema. Consistent with chronic heart failure. No discrete liver mass identified. Bilateral lower extremity ultrasound was negative for DVT bilaterally. Bi lateral lower extremity subcutaneous edema. Right popliteal fossa cyst measuring 3.8 cm. Repeat chest x-ray this morning reveals CHF. She has been admitted into the intensive care unit and multiple consultants on her case including pulmonary medicine for intensive care management. Patient has been seen by cardiology, acute coronary syndrome ruled out, atorvastatin on hold, losartan on hold and plan to continue Lopressor. Patient has been evaluated by nephrology and received any milligrams of IV Lasix followed by 30 mL of output per 2 hour, subsequently started on bicarb drip with improved renal output 10/18: Patient remains in the intensive care unit. Due to changes on echocardiogram, cardiology has ordered VQ scan to rule out pulmonary embolism. Her ultrasound of lower extremities was negative for DVT bilaterally. Patient has also been started on heparin drip. Patient states that she slept well last night. Her breathing is good today. She denies having any chest pain. Edema is improved. She remains with Hyatt catheter in place. Patient has been afebrile, heart rate 89, blood pressure 105/62, pulse ox 93% on 51 nasal cannula 5 L. Repeat blood work reveals WBC 5.6, hemoglobin 11.5, platelet count 93. INR 1.2. Blood sugars in the 200s but at 3 AM was 47. Hypoglycemia was treated. Repeat troponins are 1.610 and 1.560. CK 168. Total bilirubin 0.6, AST 1276, ALT 1564. Sodium 145, potassium 5.5, chloride 103, CO2 37, BUN 76 and creatinine 3.92. Acute hepatitis panel was negative. Repeat chest x-ray reveals heart failure with increased small right pleural effusion. Patient is followed by multiple consultants including pulmonary medicine, cardiology and nephrology. Patient is status post sodium bicarb and followed closely by nephrology. No plan for dialysis at this point. 10/19: She is seen today in the intensive care unit but has been cleared for transfer to the cardiac stepdown unit. Patient is sitting up in bed appears in no acute distress. She is down to 2 L oxygen nasal cannula. Lower extremity edema is improving. reweaver is in normal sinus rhythm. She's been afebrile, heart rate 89, respiratory rate 27, blood pressure 140/78, pulse ox 95%. VQ scan was low probability for pulmonary embolism. Patient is now on subcu heparin. Repeat chest x-ray reveals cardiomegaly with left greater than right bilateral lower lung patchy infiltrates and/or atelectasis likely small left greater than right effusions redemonstrated. No significant change. Repeat blood work reveals WBC 5.7, hemoglobin 11.8, platelet count 110. Sodium 143, potassium 4.8, chloride 100, CO2 35, BUN 78 and creatinine 3.65. This is minimally improved from yesterday. Blood sugars are running between 170s and 167. Total bilirubin 0.7, AST 459, ALT 971, alkaline phosphatase 62. Blood cultures no growth after 24 hours. Cardiology is planning to continue current regime. She is continued on Lasix 60 mg IV every 8 hours. From urology is not planning for dialysis at this point. 10/20 patient examined bedside resting comfortably in bed. Vitals examined patient is currently on 2 L of oxygen. Patient is currently responding well to the diagnosis. Had negative fluid balance of 1.3 L. We'll status continues to improve. Evaluation patient's medical patient's Creatinine this morning has dropped to 3.2 night from 3.65 BUN 79, glucose 161, normal liver enzymes. Nephrology and pulmonary following the patient. Lasix decreased to 60 IV twice a day. Metolazone discontinued. Diamox initiated at 250 minute gram twice a day. Consultants documentations revised reviewed. VQ scan was reviewed suggestive low probability. Heparin was discontinued. 10/21 patient evaluated bedside doing well is comfortable on 2 L of oxygen. Vitals reviewed patient's temp is 97.9 pulse 73 respiratory rate 18 blood pressure 139/88. Labs suggestive hemoglobin 10.9 MCV 78.7 platelet 138 ABG obtained today suggest a bicarb of 46 pCO2 67 improved from 85. Repeat CMP social sodium 143 potassium 4.1 bicarb 46 chloride 95 bun 76 creatinine 3.36 consultants notes reviewed nephrology decrease Lasix to 40 once daily. Metoprolol prednisone has been discontinued Diamox to be continued. Patient is a possible discharge tomorrow. 10/22 patient examined bedside. Lying comfortably in bed currently requiring 1 L of oxygen. Vitals are stable with temp of 98 pulse 86 respiratory rate 18 blood pressure 142/81 and oxygen saturation 92% on 1 L. Labs were reviewed patient had a sodium of 141 potassium 3.7 chloride 92 bicarb 43 BUN 74 creatinine 7.31. Patient was evaluated by nephrology who recommended continuing Lasix at 40 mg by mouth daily. Metolazone has been discontinued. Diamox to be continued for another 3 days. Repeat CMP and magnesium 2 repeated in next 2-3 days. Patient will be discharged in fair Condition to [facility] REVIEW OF SYSTEMS Constitutional: No fever, no chills, no night sweats. No weight change. Report s weakness improving, Reports fatigue improving, Reports lethargy improving. Reports daytime sleepiness. EENT: No headache. No blurred vision or double vision, no loss of vision. No loss of Hearing, no ringing in the ears, no dizziness. No nasal drainage or congestion. No epistaxis. No sore throat. Lungs: Denies shortness of breath, cough, no sputum production. No wheezing. Reports shortness of breath with exertion. Cardiovascular: No chest pain, reports lower extremity edema. No palpitations. No paroxysmal nocturnal dyspnea. No orthopnea. No lightheadedness or dizziness. No syncopal episodes. Pitting edema Abdominal: No abdominal pain. No nausea, vomiting. No diarrhea. No constipation. No bloody or tarry stools. No loss of appetite. Genitourinary: No dysuria, increased frequency, urgency. No urinary retention. Musculoskeletal: No myalgias. Reports muscle weakness, Reports gait dysfunction, no frequent falls. No back pain. No neck pain. Integumentary: No wounds, no lesions. No rash or pruritus. Neurologic: No aphasia. No facial droop. Reports change in mentation. No head injury. No headache. No paralysis. No paresthesia. Psychiatric: No depression. No anxiety. Denies insomnia. Endocrine: No abnormal blood sugars. No weight change. - Exam PHYSICAL EXAMINATION Gen: This priscila 60-year-old -[place] female. She is resting in ICU bed appears to be comfortable. Patient is currently on O2 at 2 L nasal cannula. HEENT: Head is atraumatic, normocephalic. Pupils equal, round. Sclerae is anicteric. NECK: Supple. No JVD. No lymphadenopathy. No thyromegaly. LUNGS: reveals diminished bilaterally, few expiratory wheeze. Accessory muscle usage No intercostal retractions. HEART: Regular rate and rhythm. No murmur. ABDOMEN: Soft. Bowel sounds are present. No masses. No tenderness. Hyatt catheter with clear santo urine. EXTREMITIES: 1+ bilateral pedal edema, edema to the right thigh. Dorsalis pedis +2 bilaterally. No calf tenderness. NEUROLOGICAL: Patient is awake, oriented to person and place, able to nod to answer simple questions. No focal neuro deficits. Discharge diagnosis ASSESSMENT AND PLAN 1. Acute hypercapnic and hypoxic respiratory failure secondary to acute diastolic heart failure. 2. Metabolic encephalopathy most likely secondary to hypoxia and renal failure, improved. 3. Acute kidney injury, acute tubular necrosis. 4. Severe hyperkalemia secondary to acute kidney injury. 5. Metabolic acidosis secondary to acute kidney injury and respiratory failure. 6. Shock liver with elevated liver function test secondary to hypoperfusion. 7. Troponin elevation likely due to acute on chronic kidney failure. 8. Thrombocytopenia secondary to acute illness. 9. Chronic kidney disease stage III. 10. Severe pulmonary hypertension secondary to chronic thromboembolic pulmonary hypertension, new from last echocardiogram in August. 11. Hypertension. 12. Hyperlipidemia. Hold Lipitor. 13. Diabetes mellitus type 2, labile blood sugars. 14. Tobacco use and dependence. 15. COPD, stable. 16. Gastroesophageal reflux disease. 17. Diabetic neuropathy. Hold gabapentin. 18. Recurrent depression. CODE STATUS: Full code DISCHARGE PLAN Subacute rehab at [facility] Patient Condition at Discharge: Good Plan - Discharge Summary Discharge Rx Participant: Yes New Discharge Prescriptions: New acetaZOLAMIDE [Diamox] 250 mg PO BID 3 Days #6 tab Furosemide [Lasix] 40 mg PO DAILY tab Melatonin 6 mg PO HS tablet Continue Albuterol Sulfate [Proair Hfa] 1 - 2 puff INHALATION RT-Q6H PRN PRN Reason: Shortness Of Breath Ergocalciferol [Vitamin D2 (1250 Mcg = 79936 Iu)] 1,250 mcg PO MO hydrALAZINE HCL 50 mg PO Q12H Insulin Glargine [Lantus] See Protocol SQ HS INSULIN LISPRO (humaLOG) [humaLOG] See Protocol SQ AC-TID Loratadine [Claritin] 10 mg PO DAILY Montelukast [Singulair] 10 mg PO HS Nortriptyline [Pamelor] 25 mg PO DAILY Pioglitazone [Actos] 30 mg PO DAILY Polyethylene Glycol 3350 [Miralax] 17 gm PO DAILY PRN PRN Reason: Constipation Sennosides-Docusate Sodium [Senokot-S] 1 tab PO BID Triamcinolone 0.025% Cream [Kenalog 0.025% Cream] 1 applic TOPICAL DAILY PRN PRN Reason: Itching Aspirin 81 mg PO DAILY chew Metoprolol Tartrate [Lopressor] 50 mg PO BID #60 tab HYDROcodone/APAP 10-325MG [[place] 10-325] 1 tab PO Q6HR PRN #12 tab PRN Reason: Pain Discontinued Baclofen 10 mg PO BID cloNIDine HCL [Catapres] 0.1 mg PO TID Fenofibrate 160 mg PO DAILY Losartan [Cozaar] 50 mg PO DAILY #30 tab Furosemide [Lasix] 40 mg PO BID #60 tablet Atorvastatin [Lipitor] 40 mg PO HS #30 tab Discharge Medication List Albuterol Sulfate [Proair Hfa] 1 - 2 puff INHALATION RT-Q6H PRN 08/24/20 [History] Ergocalciferol [Vitamin D2 (1250 Mcg = 78817 Iu)] 1,250 mcg PO MO 08/24/20 [History] INSULIN LISPRO (humaLOG) [humaLOG] See Protocol SQ AC-TID 08/24/20 [History] Insulin Glargine [Lantus] See Protocol SQ HS 08/24/20 [History] Loratadine [Claritin] 10 mg PO DAILY 08/24/20 [History] Montelukast [Singulair] 10 mg PO HS 08/24/20 [History] Nortriptyline [Pamelor] 25 mg PO DAILY 08/24/20 [History] Pioglitazone [Actos] 30 mg PO DAILY 08/24/20 [History] Polyethylene Glycol 3350 [Miralax] 17 gm PO DAILY PRN 08/24/20 [History] Sennosides-Docusate Sodium [Senokot-S] 1 tab PO BID 08/24/20 [History] Triamcinolone 0.025% Cream [Kenalog 0.025% Cream] 1 applic TOPICAL DAILY PRN 08/24/20 [History] hydrALAZINE HCL 50 mg PO Q12H 08/24/20 [History] Aspirin 81 mg PO DAILY chew 08/29/20 [Rx] Metoprolol Tartrate [Lopressor] 50 mg PO BID #60 tab 08/29/20 [Rx] Furosemide [Lasix] 40 mg PO DAILY tab 10/22/20 [Rx] HYDROcodone/APAP 10-325MG [[place] 10-325] 1 tab PO Q6HR PRN #12 tab 10/22/20 [Rx] Melatonin 6 mg PO HS tablet 10/22/20 [Rx] acetaZOLAMIDE [Diamox] 250 mg PO BID 3 Days #6 tab 10/22/20 [Rx] Follow up Appointment(s)/Referral(s): [facility], [NON-STAFF] - 1-2 Days [facility] [Primary Care Provider] - 1-2 days Discharge Disposition: TRANSFER TO SNF/ECF
[2020-10-22 16:57] LABS: Glucose,Whole Blood 171 mg/dL (75-99)
--- NOTE | 2020-10-22 17:58 | P.PN ---
Subjective Progress Note Date: 10/22/20 Principal diagnosis: Acute on chronic hypercapnic respiratory failure secondary to acute on chronic diastolic congestive heart failure 60-year-old female patient with past medical history of COPD, CHF with the diastolic dysfunction, chronic kidney disease stage III, diabetes mellitus type 2 with diabetic gastroparesis and diabetic neuropathy, morbid obesity, obstructive sleep apnea, hypertension, hyperlipidemia who was recently hospitalized from 08/24/2020 through 08/29/2020 for acute exacerbation of diastolic CHF. She was discharged home on oral Lasix 40 mg twice a day in addition to multiple other medications, she had troponin elevation during her last visit which was felt to be due to her abnormal renal function. Her echocardiogram from 08/24/2020 showed severe concentric LVH, with an EF between 55 and 60%, trace mitral regurg, right-sided pressures were normal at less than 35 mmHg. Patient was brought into the emergency department per EMS on oral 10/16/2020 with worsening shortness of breath, altered mental status, weakness, poor appetite over the past couple of days prior to admission. Patient's daughter went to her house to check on her mother and found her in rest or distress and poorly responsive, EMS arrived and patient's pulse ox was in the low 70s, chest x-ray in emergency department showed mild to moderate CHF with bibasilar opacities and probable trace left pleural effusion that was previously noted on her previous admission, brain CT showed no acute intracranial abnormality, EKG showed normal sinus rhythm, patient was placed on BiPAP support with pressures of 12 5 and FiO2 of 100%. Blood gas was obtained showing acute on chronic hypercapnic respiratory failure with pO2 of 157, pCO2 of 82, and pH of 7.21, the rest of the blood work was reviewed showing normal white count 7.6, hemoglobin of 12.1, platelet count was 1:30, d-dimer was 9.73, INR was 1.3, potassium was 7.2, BUN was 71, creatinine was 3.56, glucose was 135, no signif icant elevation of liver enzymes with AST of 6442, and ALT of 2889, troponin was elevated at 2.160. Urinalysis showed 3+ protein, but no clear evidence of urinary tract infection, patient was checked for influenza, RSV and now COVID-19 and was found to be negative. Serum alcohol level was less than 10, acetaminophen level was less than 10. Lactic acid was normal at 1.7. Hent was given Ancef sodium bicarbonate in the emergency department, hyperkalemia was treated with D50, regular insulin, she was given 30 g of Kayexalate in the emergency department. She appears to be generally fluid overloaded, with extensive edema in her lower extremities she was oliguric and she was given 80 mg of Lasix. Nephrology has been consulted. This morning she is more responsive, remains on BiPAP support with above-mentioned settings, she is able to provide simple answers, she any fever or chills, denied any chest pain, she did state that she was increasingly more short of breath and noted increa sing lower extremity edema. She denies being oxygen dependent on a regular basis. Her pulse ox is 99%, she has remained afebrile through the night, blood pressures have been stable, she only produced 100 mL in urine output despite the Lasix challenge. This morning her chest x-ray is showing essentially stable findings of mild to moderate perihilar and bibasilar hazy opacities. Ultrasound of the abdomen was obtained showing questionable 2.4 cm right hepatic focus versus prominent pyramid, gallbladder wall appeared thickened with fluid seen adjacent to the gallbladder, common bile duct portion seen appeared within normal limits, kidneys with no evidence of hydronephrosis. CT of the abdomen and pelvis was obtained showing cardiomegaly with pleural effusions and pulmonary basilar consolidation and atelectasis, ascites, subcutaneous edema no discrete liver mass was identified, kidneys were of normal size with no hydronephrosis, ureters were not dilated. There is no evidence of bowel o bstruction, there were multiple sigmoid diverticula without any sign of diverticulitis. Follow-up blood work this morning shows a white blood cell count of 8.7, hemoglobin of 11.7, platelet count is 115, sodium of 144, potassium 6.6, chloride is 109, renal profile slightly improved, with B1 at 74, and creatinine of 3.72, AST is down to 4438, and ALT of 2240, alkaline phosphatase is within normal limits at 54. On 10/18/2020 patient seen in follow-up in intensive care unit, she is much more alert and responsive on today's exam. She is resting comfortably in bed, she is oriented to person, place and the month, the year, seems to be a bit inattentive, but overall mentation has significantly improved in the last 24 hours, tshe did go on BiPAP support last night sugars of 12/5 and FiO2 of 65%. She was switched over to high flow nasal cannula which is currently off the patient's face, removed it inadvertently, and her pulse ox right now is 86%. Does not seem to be in any acute distress, supplement oxygen was placed back on the patient's face and O2 sat did come up to 93%, lung sounds reveal diminished breath sounds at the bases, with bibasilar crackles. He remains significantly fluid overloaded, and she is actually positive fluid balance over the last 24 hours of 1.3 L. Has significant generalized edema including her bilateral lower extremities, abdomen, sacral area. However mentation is much improved, and she seems to breathing quite comfortably. Even several doses of IV Lasix yesterday, seen urine in order of 50-75 ML per hour. Is on 5% dextrose with 3 A of bicarbonate at a rate of 85 ML per hour. On today's labs are bicarbonate concentration is 37, potassium is 5.5, BUN of 76 and creatinine is 3.92. Her liver enzymes are trending down, AST is 1276, ALT is 1564, alkaline phosphatase is 67. Her troponins are trending down, from 2.160 on admission, to 1.610, and 1.560. D-dimer was elevated on admission, her lower extremity Dopplers did not show definite evidence of DVT. Cardiology is rounding and patient is being started on heparin infusion for possibility of pulmonary embolism, VQ scan per cardiology is pending. Last night patient was hypoglycemic, and she was given D50 IV push. Patient is now tolerating oral intake, and her appetite is fair she is consuming about 40-50% of her meal. Cardiogram showed preserved LV function with EF between 55-60%, severe enlargement of the right ventricle, with paradoxical motion of the right ventricular septum consistent with fluid overload or elevated right ventricular end-diastolic pressure, there was evide nce of severe pulmonary hypertension with right-sided pressures of 69 mmHg. Inferior vena cava was dilated with poor inspiratory collapse estimated right atrial pressure of 20 mmHg On 10/19/2020 patient seen in follow-up in intensive care unit, she is awake and alert, oriented 3, in bed, watching TV, breathing comfortably, she is currently on 2 L of oxygen her pulse ox is 96%, she did wear BiPAP last night with pressures 12/5 and FiO2 of 65%, tolerated it well. Her 0.9 normal saline is infusing at 10 ML per hour, no other drips, she is in -2.5 L fluid balance over the last 24 hours, she remains on Lasix 60 mg every 8 hours, today's chest x-ray was reviewed and cardiomegaly with left greater than right bilateral lower lung patchy infiltrates small left greater than right pleural effusions. Overall no significant change compared to previous chest x-ray from yesterday, generalized edema is improving. Today's labs have been reviewed white blood cell count of 5.7, hemoglobin of 11.8, platelet count is 110, sodium is 143, potassium is 4.8, chloride is 100, CO2 35, B1 is 78, creatinine is 3.65, and her renal profile shows slight improvement from yesterday. Her enzymes are improving as well, a ST is 459, ALT is 971, alkaline phosphatase is 62. VQ scan was completed yesterday showing low probability of pulmonary embolism, and her heparin drip has been discontinued and patient was switched back over to subcutaneous heparin 5000 mg subcutaneous injections twice daily. Overall no acute events overnight, she is in sinus mechanism, with a controlled rate, blood pressure stable 140/78. No altered mentation, fever or chills, no complaints of chest pain no cough or congestion. 10/20/2020, patient is outside the intensive care unit and she is currently on a medical floor. She is doing well. Currently she is still being diuresed with IV Lasix and the patient is receiving Lasix 60 mg IV push every 12 hours. Overall fluid balance since yesterday has been negative still and the patient is a negative fluid balance of 1.3 L. Her volume status continues to improve. We are closely monitoring her renal function also in the patient's creatinine is down to 3.29 with a BUN of 79. Noted the patient has an acute on top of chronic kidney insufficiency. Serum bicarb is 41. There are current pulse ox is in order of 98% on 2 L about 2 by nasal cannula. Her overall condition is stabilized considerably. VQ scan was of a low probability. The patient was taken off the IV heparin 10/21/2020, patient has no complaints and she is feeling well. She is still being diuresed aggressively. She is at least 4 L negative since yesterday. Serum bicarb is up to 46. Creatinine is at 3.3 with a mean of 76. Sodium level is at 143. She is alert and oriented 3. No chest pain. No significant shortness of breath. She is on Lasix at a dose of 60 mg IV every 12 hours. Her fluid balance is negative for liters as stated. VQ scan was of a low probability and the patient is currently off anticoagulation. With regards at 4.3 with a hemoglobin of 10.9 Reevaluated today on 10/22/2020, patient is feeling great, asymptomatic, she has been diuresing quite well and she is receiving significant amount of diuretics, patient is doing great. I believe the patient is being considered for discharge home today on diuretics. Chest x-ray today showed cardiomegaly, and small pleural effusions. Bicarb today is 43 BUN is 74 creatinine 3.31. Electrodes are normal Objective - Vital Signs Vital signs: Vital Signs Temp 98 F 10/22/20 12:00 Pulse 86 10/22/20 12:00 Resp 18 10/22/20 12:00 BP 142/81 10/22/20 12:00 Pulse Ox 92 L 10/22/20 12:00 Intake & Output 10/21/20 10/22/20 10/22/20 18:59 06:59 18:59 Intake Total 1200 550 365 Output Total 2550 1700 1550 Balance -1350 -1150 -1185 Weight 100.4 kg Intake: Oral 1200 550 365 Output: Urine 2550 1700 1550 Uretheral (Hyatt) 1300 Other: Voiding Method Indwelling Catheter # Bowel Movements 1 - Exam Physical Exam: Revealed a 60-year-old female in no distress. Patient is on 1 L nasal cannula, and her O2 saturation is 92-95% Head: Atraumatic, normocephalic. HEENT:[Neck is supple.] [No neck masses.] [No thyromegaly.] [No JVD.] Chest: [Website Project Manager breath sounds and crackles at the bases..] Cardiac Exam: [Normal S1 and S2, no S3 gallop, no murmur.] Abdomen: [Soft, nontender, no megaly, no rebound, no guarding, normal bowel sounds.] Extremities: [No clubbing, 1+ bipedal edema, no cyanosis.] Neurological Exam: [No focal neurologic deficit.] Alert oriented 3. Psychiatric: Normal mood affect and normal mental status examination. - Labs CBC & Chem 7: 10/21/20 07:16 10/22/20 07:04 Labs: Abnormal Lab Results - Last 24 Hours (Table) 10/21/20 10/22/20 10/22/20 Range/Units 19:54 06:10 07:04 Chloride 92 L (98-107) mmol/L Carbon Dioxide 43 H* (22-30) mmol/L BUN 74 H (7-17) mg/dL Creatinine 3.31 H (0.52-1.04) mg/dL Glucose 145 H (74-99) mg/dL POC Glucose (mg/dL) 177 H 153 H (75-99) mg/dL 10/22/20 10/22/20 Range/Units 12:05 16:53 Chloride (98-107) mmol/L Carbon Dioxide (22-30) mmol/L BUN (7-17) mg/dL Creatinine (0.52-1.04) mg/dL Glucose (74-99) mg/dL POC Glucose (mg/dL) 146 H 171 H (75-99) mg/dL Microbiology - Last 24 Hours (Table) 10/17/20 10:58 Blood Culture - Preliminary Blood No Growth after 120 hours 10/17/20 11:05 Blood Culture - Preliminary Blood No Growth after 120 hours Assessment and Plan Assessment: Impression: Acute on chronic hypercapnic respiratory failure secondary to acute on chronic diastolic congestive heart failure Acute kidney injury History of diastolic CHF. Elevated d-dimer but negative workup for DVT and pulmonary embolism History of COPD, normally not oxygen dependent. Obstructive sleep apnea syndrome. Type 2 diabetes with gastroparesis and neuropathy Former smoker. Benign essential hypertension. Dyslipidemia. Recommendation: Agree with the present treatment plan Agree with discharge planning Follow-up on outpatient basis. Time with Patient: Less than 30
[2020-10-22 19:58] LABS: Glucose,Whole Blood 179 mg/dL (75-99)
[2020-10-22] MEDS: MELATONIN 3 MG TABLET PO SCH (20:33)
[2020-10-22] MEDS: MONTELUKAST 10 MG TAB PO SCH (20:34)
[2020-10-23 05:28] LABS: Glucose,Whole Blood 156 mg/dL (75-99)
[2020-10-23 06:22] LABS: Glucose,Whole Blood 157 mg/dL (75-99)
[2020-10-23] MEDS: INSULIN ASPART (NovoLOG) 100 UNIT/ML VIAL SQ SCH (06:34)
[2020-10-23 08:18] LABS: Calcium 8.8 mg/dL (8.4-10.2); Magnesium 2.4 mg/dL (1.6-2.3); Potassium 3.4 mmol/L (3.5-5.1)
[2020-10-23] MEDS ORDERED: FUROSEMIDE 40 MG TAB PO SCH (09:00)
[2020-10-23] MEDS: acetaZOLAMIDE 250 MG TAB PO SCH (09:01)
[2020-10-23] MEDS: PANTOPRAZOLE 40 MG TABLET PO SCH (09:01)
[2020-10-23] MEDS: ASPIRIN 81 MG PO SCH (09:01)
[2020-10-23] MEDS: SENNOSIDES-DOCUSATE SODIUM 1 EACH TAB PO SCH (09:01)
[2020-10-23] MEDS: METOPROLOL TARTRATE 50 MG TAB PO SCH (09:01)
[2020-10-23] MEDS: NORTRIPTYLINE 25 MG CAP PO SCH (09:02)
[2020-10-23] MEDS: HEPARIN SODIUM,PORCINE/PF 5,000 UNIT/0.5 ML SYRINGE SQ SCH (09:02)
[2020-10-23] MEDS ORDERED: POTASSIUM CHLORIDE ER 20 MEQ TAB.ER PO STA (11:07)
[2020-10-23 11:37] VITALS: BP 159/84; PULSE 85; RESP 20; TEMP 97.6
[2020-10-23 11:56] VITALS: BMI 35.9
--- NOTE | 2020-10-23 12:56 | P.PN ---
Subjective Patient is seen in follow-up for acute kidney injury on chronic kidney disease. Renal function is stable. Bicarb level 46 today. No chest pain or shortness of breath. Edema improved. Currently on room air. Blood pressure stable. Vital signs are stable. General: The patient appeared well nourished and normally developed. HEENT: Head exam is unremarkable. Neck is without jugular venous distension. LUNGS: Breath sounds decreased. HEART: Rate and Rhythm are regular. ABDOMEN: Soft, no distention. EXTREMITITES: Trace edema. Objective - Vital Signs Vital signs: Vital Signs Temp 97.6 F 10/23/20 08:00 Pulse 85 10/23/20 08:00 Resp 20 10/23/20 08:00 BP 159/84 10/23/20 08:00 Pulse Ox 95 10/23/20 08:00 Intake & Output 10/22/20 10/23/20 10/23/20 18:59 06:59 18:59 Intake Total 365 240 Output Total 1550 Balance -1185 240 Weight 101 kg 101 kg Intake: Oral 365 240 Output: Urine 1550 Uretheral (Hyatt) 1300 Other: # Voids 1 # Bowel Movements 1 - Labs CBC & Chem 7: 10/21/20 07:16 10/23/20 07:31 Labs: Abnormal Lab Results - Last 24 Hours (Table) 10/22/20 10/22/20 10/23/20 Range/Units 16:53 19:56 05:27 Potassium (3.5-5.1) mmol/L Chloride (98-107) mmol/L Carbon Dioxide (22-30) mmol/L BUN (7-17) mg/dL Creatinine (0.52-1.04) mg/dL Glucose (74-99) mg/dL POC Glucose (mg/dL) 171 H 179 H 156 H (75-99) mg/dL Magnesium (1.6-2.3) mg/dL 10/23/20 10/23/20 Range/Units 06:20 07:31 Potassium 3.4 L (3.5-5.1) mmol/L Chloride 94 L (98-107) mmol/L Carbon Dioxide 46 H* (22-30) mmol/L BUN 71 H (7-17) mg/dL Creatinine 3.20 H (0.52-1.04) mg/dL Glucose 128 H (74-99) mg/dL POC Glucose (mg/dL) 157 H (75-99) mg/dL Magnesium 2.4 H (1.6-2.3) mg/dL Microbiology - Last 24 Hours (Table) 10/17/20 10:58 Blood Culture - Preliminary Blood No Growth after 120 hours 10/17/20 11:05 Blood Culture - Preliminary Blood No Growth after 120 hours Assessment and Plan Plan: Assessment: 1. Acute kidney injury secondary to ATN secondary to cardiorenal syndrome. Renal function fairly stable. 2. Chronic kidney disease stage IIIB with baseline creatinine 1.6-1.9 secondary to diabetic kidney disease. 3. Hyperkalemia on admission. Resolved. 4. Acute on chronic diastolic CHF and moderate tricuspid regurgitation and severe pulmonary hypertension. 5. Metabolic alkalosis and respiratory acidosis. 6. Diabetes mellitus. 7. Volume overload. Improved with diuresis. Plan: Hold Lasix for now. Metolazone discontinued on October 20. Maintain Diamox 250 mg twice a day for the next 3 days. Maintain low salt diet. Anticipate discharge soon. Repeat BMP and magnesium level 2-3 days postdischarge. Follow-up outpatient in 1 week. Resume Lasix in the next 4-5 days at 40 mg once daily if edema worsens.
--- NOTE | 2020-10-25 11:43 | CDI ---
Documentation Clarification Form Date: 10/25/20 From: Michelle Jackson Phone: Admit Date: 10/16/2020 06:21:00 PM Patient Name: Laury Rinaldi Visit Number: [id number] Discharge Date: 10/23/2020 11:59:00 AM ATTENTION: The Clinical Documentation Specialists (CDI) and [facility] Coding Staff appreciate your assistance in clarifying documentation. Please respond to the clarification below the line at the bottom and electronically sign. The CDI & [facility] Coding staff will review the response and follow-up if needed. Please note: Queries are made part of the Legal Health Record. If you have any questions, please contact the author of this message via ITS. Dr. Charlene Lorenz, Your patient has troponin level(s) of: 10/16-2.160, 10/18-1.610 & 1.560. Please clarify if there is an additional diagnosis and/or clinical significance related to this value. Patient history/risk factors: HX of normal coronary arteries in 2016, HTN w acute on chronic diastolic CHF & CKD 3b, COPD, DM T2 w CKD, gastroparesis, neuropathy, ophthalmic, metabolic encephalopathy, shock liver Clinical indicators: Elevated troponins, found at home with AMS and SOB. Treatment: Continue medications to lower potassium, repeat level continues to be high would give another dose of Kayexalate. Repeat echocardiogram and doppler study. Hold Atorvastatin secondary to transaminitis. Hold Losartan secondary to kidney disease. Continue Lopressor. Increase bicarb infusion to 100cc/hr. Is there an additional diagnosis and/or clinical significance related to the above lab result/information? [ ] NSTEMI type 1 [ ] Type 2 LA due to acute on chronic kidney failure [ ] Troponemia, not clinically significant [ ] Other, please specify [ ] Unable to determine MTDD
== END 2020-10-23 11:59 | DRG 291 ==
LOC: EC 15:52 → 2SICU 18:21 → 3SCARD 10-19 13:56
PROVIDERS: ADMIT Family Medicine; ATTEND Family Medicine
PROC: 5A09457 Assistance with Respiratory Ventilation, 24-96 Consecutive Hours, Continuous Positive Airway Pressure (ICD-10-PCS; 2020-10-16)
PROC: 05HD33Z Insertion of Infusion Device into Right Cephalic Vein, Percutaneous Approach (ICD-10-PCS; principal; 2020-10-18 13:35)
DX: I13.0 Hypertensive heart and chronic kidney disease with heart failure and stage 1 through stage 4 chronic kidney disease, or unspecified chronic kidney disease (principal); I50.33 Acute on chronic diastolic (congestive) heart failure; J96.22 Acute and chronic respiratory failure with hypercapnia; J96.21 Acute and chronic respiratory failure with hypoxia; G93.41 Metabolic encephalopathy; N17.0 Acute kidney failure with tubular necrosis; K72.00 Acute and subacute hepatic failure without coma; R18.8 Other ascites; E87.4 Mixed disorder of acid-base balance; F33.9 Major depressive disorder, recurrent, unspecified; E87.0 Hyperosmolality and hypernatremia; N13.30 Unspecified hydronephrosis; J98.11 Atelectasis; E11.649 Type 2 diabetes mellitus with hypoglycemia without coma; I27.24 Chronic thromboembolic pulmonary hypertension; E11.22 Type 2 diabetes mellitus with diabetic chronic kidney disease; E11.43 Type 2 diabetes mellitus with diabetic autonomic (poly)neuropathy; E11.40 Type 2 diabetes mellitus with diabetic neuropathy, unspecified; J44.9 Chronic obstructive pulmonary disease, unspecified; E11.39 Type 2 diabetes mellitus with other diabetic ophthalmic complication; N18.32 Chronic kidney disease, stage 3b; E66.01 Morbid (severe) obesity due to excess calories; Z79.4 Long term (current) use of insulin; Z20.822 Contact with and (suspected) exposure to COVID-19; E86.0 Dehydration; D69.59 Other secondary thrombocytopenia; K31.84 Gastroparesis; H53.8 Other visual disturbances; E87.5 Hyperkalemia; I08.3 Combined rheumatic disorders of mitral, aortic and tricuspid valves; K21.9 Gastro-esophageal reflux disease without esophagitis; Z68.35 Body mass index [BMI] 35.0-35.9, adult; E78.5 Hyperlipidemia, unspecified; G47.33 Obstructive sleep apnea (adult) (pediatric); T50.2X5A Adverse effect of carbonic-anhydrase inhibitors, benzothiadiazides and other diuretics, initial encounter; K57.30 Diverticulosis of large intestine without perforation or abscess without bleeding; M15.9 Polyosteoarthritis, unspecified; M43.00 Spondylolysis, site unspecified; R77.8 Other specified abnormalities of plasma proteins; F17.210 Nicotine dependence, cigarettes, uncomplicated; Z71.6 Tobacco abuse counseling; Z79.82 Long term (current) use of aspirin; Z79.899 Other long term (current) drug therapy; Z87.39 Personal history of other diseases of the musculoskeletal system and connective tissue; Z87.42 Personal history of other diseases of the female genital tract; Z90.710 Acquired absence of both cervix and uterus; Z98.890 Other specified postprocedural states; Z71.3 Dietary counseling and surveillance; Z88.0 Allergy status to penicillin; Z88.8 Allergy status to other drugs, medicaments and biological substances; Z82.5 Family history of asthma and other chronic lower respiratory diseases; Z83.3 Family history of diabetes mellitus
CPT/HCPCS: 36410; 36415; 36600; 70450; 71045; 74176; 76705; 76770; 76937; 78582; 80048; 80053; 80074; 80143; 80306; 80320; 81001; 82140; 82550; 82803; 82805; 83605; 83735; 83880; 84132; 84443; 84484; 85025; 85379; 85610; 85730; 86706; 87040; 87340; 87636; 93005; 93306; 93970; 94640; 94660; 96374; 96375; 99291

== ENCOUNTER 2021-01-04 13:10 | Inpatient (IN) | payer OTHER ==
[2021-01-04] MEDS ORDERED: FUROSEMIDE 10 MG/ML 4 ML VIAL IV STA (13:17)
[2021-01-04] MEDS ORDERED: ASPIRIN 325 MG TAB PO STA (13:18)
[2021-01-04] MEDS ORDERED: DILTIAZEM 5 MG/ML 5 ML VIAL IVP STA (13:42)
--- NOTE | 2021-01-04 13:47 | ED ---
General Adult HPI - General Chief complaint: Shortness of Breath Stated complaint: PRABHAKAR Time Seen by Provider: 01/04/21 13:15 Source: patient, RN notes reviewed, old records reviewed Mode of arrival: ambulatory Limitations: no limitations - History of Present Illness Initial comments: Patient is a 60-year-old female with past medical history COPD, encephalopathy, HPI, CHF, chronic hypoxic respiratory failure acute onset shortness of breath. Patient recently was discharged from the hospital within the last week. She was discharged from outside hospital where she did require cardioversion as well as thoracentesis. She is discharged home in improved condition, however states that over the last 1-2 days she has been having worsening shortness of breath. It was particularly worse this morning. She was hypoxic down into the 60%'s per EMS at home on 5 L nasal cannula. This improved when she wraps placed on a nonrebreather and brought to the emergency department for evaluation. She endorses some chest discomfort but denies any kathy pain. She states she is short of breath but is improved since earlier. She does endorse worsening bilateral lower extremity edema. She endorses mild worsening orthopnea. She denies any history of blood clots in herself or family members. She denies any fevers, chills, cough. She denies any abdominal complaints. She otherwise has no acute complaints at this time. - Related Data Home Medications Medication Instructions Recorded Confirmed Albuterol Sulfate [Proair Hfa] 1 - 2 puff INHALATION RT-Q6H PRN 08/24/20 01/04/21 Ergocalciferol [Vitamin D2 (1250 1,250 mcg PO WE 08/24/20 01/04/21 Mcg = 10518 Iu)] INSULIN LISPRO (humaLOG) [humaLOG] See Protocol SQ AC-TID 08/24/20 01/04/21 Loratadine [Claritin] 10 mg PO DAILY 08/24/20 01/04/21 Montelukast [Singulair] 10 mg PO HS 08/24/20 01/04/21 Nortriptyline [Pamelor] 25 mg PO DAILY 08/24/20 01/04/21 Pioglitazone [Actos] 30 mg PO DAILY 08/24/20 01/04/21 Polyethylene Glycol 3350 [Miralax] 17 gm PO DAILY PRN 08/24/20 01/04/21 Sennosides-Docusate Sodium 1 tab PO BID PRN 08/24/20 01/04/21 [Senokot-S] Triamcinolone 0.025% Cream 1 applic TOPICAL BID PRN 08/24/20 01/04/21 [Kenalog 0.025% Cream] Apixaban [Eliquis] 2.5 mg PO BID 01/04/21 01/04/21 Bumetanide [Bumex] 1 mg PO DAILY 01/04/21 01/04/21 Furosemide [Lasix] 40 mg PO BID 01/04/21 01/04/21 Insulin Detemir (Levemir) [Levemir] 25 unit SQ HS 01/04/21 01/04/21 Melatonin 6 mg PO HS PRN 01/04/21 01/04/21 Potassium Chloride ER [K-Dur 10] 10 meq PO BID 01/04/21 01/04/21 hydrALAZINE HCL [Apresoline] 25 mg PO BID 01/04/21 01/04/21 metOLazone 2.5 mg PO FR@1200 01/04/21 01/04/21 Previous Rx's Medication Instructions Recorded Aspirin 81 mg PO DAILY chew 08/29/20 HYDROcodone/APAP 10-325MG [[place] 1 tab PO Q6HR PRN #12 tab 10/22/20 10-325] Allergies Allergy/AdvReac Type Severity Reaction Status Date / Time amoxicillin [Amoxicillin] Allergy Rash/Hives Verified 01/04/21 16:05 latanoprost AdvReac blurry Verified 01/04/21 16:05 vision prednisolone AdvReac Swelling Verified 01/04/21 16:05 steroids AdvReac affected Uncoded 10/12/20 15:10 eyes Review of Systems ROS Statement: Those systems with pertinent positive or pertinent negative responses have been documented in the HPI. Review of Systems: CONST: Denies fever EYES: Denies blurry vision ENT: Denies nasal congestion C/V: Endorses chest discomfort RESP: Endorses shortness of breath GI: Denies abdominal pain : Denies dysuria SKIN: Denies rash. MSK: Denies joint pain. NEURO: Denies headache ROS Other: All systems not noted in ROS Statement are negative. Past Medical History Past Medical History: COPD, Diabetes Mellitus, Eye Disorder, GERD/Reflux, Hyperlipidemia, Hypertension, Osteoarthritis (OA) Additional Past Medical History / Comment(s): spondolysis, , blurry vision & eye problems ?related to diabetes History of Any Multi-Drug Resistant Organisms: None Reported Past Surgical History: Back Surgery, Hysterectomy, Orthopedic Surgery Additional Past Surgical History / Comment(s): RT shoulder surgery, LT arthroscopy knee. COLONOSCOPY. BACK SX X 2 Past Anesthesia/Blood Transfusion Reactions: No Reported Reaction Past Psychological History: No Psychological Hx Reported Smoking Status: Former smoker Past Alcohol Use History: Rare Past Drug Use History: None Reported - Past Family History Mother Family Medical History: No Reported History General Exam - General Exam Comments Initial Comments: General: Appears in mild respiratory distress with mildly increased work of breathing which both EMS and patient's is drastically improved. HEAD: Normal with no signs of head trauma. EYES: PERRLA, EOMI, conjunctiva normal, no discharge. ENT: Hearing grossly intact, normal oropharynx. RESPIRATORY: Patient is clear breath sounds bilaterally without any obvious whee zing. C/V: Patient is tachycardic with an irregular rhythm. S1 and S2 auscultated. Peripheral pulses are 2+ and intact throughout. Patient does have 1 or 2+ pitting edema in the bilateral lower extremities that are symmetrical. ABD: Abd is soft, nontender, nondistended EXT: Normal range of motion, no obvious deformity SKIN: No rashes or lesions observed on exposed skin. NEURO: Alert and oriented 4. No focal sensory strength deficits. Limitations: no limitations Course Vital Signs 01/04/21 01/04/21 01/04/21 13:18 14:14 16:03 Temperature 98 F Pulse Rate 156 H 138 H 135 H Pulse Rate [ Restaurant Front Manager ] Respiratory 18 20 18 Rate Blood Pressure 140/97 160/97 160/106 Blood Pressure [Left Arm] O2 Sat by Pulse 100 96 96 Oximetry 01/04/21 01/04/21 01/04/21 16:30 16:45 17:09 Temperature 98.6 F Pulse Rate Pulse Rate [ 134 H 137 H 135 H Restaurant Front Manager ] Respiratory 20 20 20 Rate Blood Pressure Blood Pressure 156/126 172/122 168/114 [Left Arm] O2 Sat by Pulse Oximetry 01/04/21 01/04/21 17:32 17:47 Temperature Pulse Rate 134 H Pulse Rate [ 134 H Restaurant Front Manager ] Respiratory 19 20 Rate Blood Pressure 157/113 Blood Pressure 166/119 [Left Arm] O2 Sat by Pulse 94 L Oximetry Medical Decision Making - Medical Decision Making Based on the patient's presentation and physical exam, I'm concerned for cardiac etiology for her current symptoms. I cannot rule out pulmonary causes including possible pulmonary embolism at this time either. She also may have reaccumulation of pleural effusions. Therefore we will obtain a cardiac workup including troponin, EKG, chest x-ray and basic laboratory studies. Due to the patient's dyspnea on 15 L nasal cannula, she'll be placed on BiPAP. Will be weaned as tolerated with respiratory help. The patient was ultrasounded by myself which revealed bilateral B lines in both lung valdez as well as a small pleural effusion on the left side. Echo was performed prior to BiPAP adm inistration. It did reveal a mild decrease in EF, but difficult visualization. However there is a plethoric IVC. Therefore I'm concerned for heart failure exacerbation as well. Patient will be administered 40 mg IV Lasix in addition to aspirin. She was in agreement this plan. She'll be kept on continuous cardiac monitoring for this time. The patient's A. fib/A flutter with RVR, we will first attempt to address her respiratory issue with BiPAP and see if she responds. If the RVR continuous, we will provide medications for resolution. She was in agreement this plan. On reevaluation, patient is feeling improved on BiPAP, however RVR is not resolved. Therefore we will start the patient on a Cardizem drip following a 15 mg IV push of Cardizem. She was in agreement with this plan. Heart rate did improve down to the 130s and 120s from 150s and 160s. Oxygen saturation is improved at this time as is the patient's work of breathing and tachypnea. EKG revealed no signs of acute ischemia. Laboratory studies are remarkable for a normocytic anemia with hemoglobin of 10.1. D-dimer is elevated to 5.05. Patient has mild hyperkalemia with no acute EKG changes the potassium of 5.3, and patient was administered lasix which will aid in excretion. Patient has an elevated BUN/creatinine of 64 and 1.75 respectively in the setting of CK D. Troponin is elevated to 0.072. Covid swab is negative. Chest x-ray revealed bibasilar effusions as well as pulmonary vascular congestion, and the setting of dyspnea with history of CHF and A. fib with RVR this is likely pulmonary edema from a cardiac etiology. I spoke with the patient regarding her findings. She is feeling somewhat impro gonzalo, still on BiPAP as well as now on a Cardizem drip. Heart rate is known to 130s and mid 120s. Dyspnea is vastly improved. She states her chest discomfort is improved as well. I spoke with her regarding her laboratory findings and imaging. Initially the plan was to obtain a CT angios to rule out pulmonary animals and, however the patient has CK D with an elevated creatinine as well low GFR. As the patient's receiving heparin for her elevated troponin, this is the same management for pulmonary embolus and NSTEMI and therefore patient was bolused And started on a heparin drip. VQ scan was ordered. At this time I believe that the patient requires admission to the hospital, likely ICU with her past medical history. I spoke with the drawbench operator/ICU attending on-call, Dr. fery who accepted the admission to the ICU and agreed to evaluate the patient. I also consult to cardiology Dr. Song, who evaluated the patient in was in agreement this plan. He placed the patient on an ami odarone drip in addition to the Cardizem drip. I also spoke with the admitting team under Dr. Andrew, who accepted the patient. At his request, I did have the emergency editor department sent request for [facility] medical records regarding the patient. At the time of this note, medical records have not yet been faxed back. Patient was therefore admitted to the hospital in serous condition. - Lab Data Result diagrams: 01/04/21 13:26 01/04/21 13:26 Lab Results 01/04/21 01/04/21 01/04/21 Range/Units 13:26 13:26 13:26 WBC 5.9 (3.8-10.6) k/uL RBC 4.09 (3.80-5.40) m/uL Hgb 10.1 L (11.4-16.0) gm/dL Hct 35.5 (34.0-46.0) % MCV 86.7 (80.0-100.0) fL MCH 24.6 L (25.0-35.0) pg MCHC 28.4 L (31.0-37.0) g/dL RDW 19.6 H (11.5-15.5) % Plt Count 414 (150-450) k/uL MPV 9.6 Neutrophils % 83 % Lymphocytes % 8 % Monocytes % 7 % Eosinophils % 1 % Basophils % 0 % Neutrophils # 4.9 (1.3-7.7) k/uL Lymphocytes # 0.5 L (1.0-4.8) k/uL Monocytes # 0.4 (0-1.0) k/uL Eosinophils # 0.0 (0-0.7) k/uL Basophils # 0.0 (0-0.2) k/uL Hypochromasia Marked Anisocytosis Slight Microcytosis Slight PT 11.7 (9.0-12.0) sec INR 1.1 (<1.2) APTT 25.6 (22.0-30.0) sec D-Dimer 5.05 H (<0.60) mg/L FEU Sodium 145 (137-145) mmol/L Potassium 5.3 H (3.5-5.1) mmol/L Chloride 97 L (98-107) mmol/L Carbon Dioxide 40 H (22-30) mmol/L Anion Gap 8 mmol/L BUN 64 H (7-17) mg/dL Creatinine 1.75 H (0.52-1.04) mg/dL Est GFR (CKD-EPI)AfAm 36 (>60 ml/min/1.73 sqM) Est GFR (CKD-EPI)NonAf 31 (>60 ml/min/1.73 sqM) Glucose 125 H (74-99) mg/dL Plasma Lactic Acid Loco (0.7-2.0) mmol/L Calcium 9.7 (8.4-10.2) mg/dL Total Bilirubin 0.6 (0.2-1.3) mg/dL AST 36 (14-36) U/L ALT 17 (4-34) U/L Alkaline Phosphatase 58 (38-126) U/L Troponin I (0.000-0.034) ng/mL NT-Pro-B Natriuret Pep pg/mL Total Protein 7.0 (6.3-8.2) g/dL Albumin 3.7 (3.5-5.0) g/dL TSH (0.465-4.680) mIU/L Urine Color Urine Appearance (Clear) Urine pH (5.0-8.0) Ur Specific [place] (1.001-1.035) Urine Protein (Negative) Urine Glucose (UA) (Negative) Urine Ketones (Negative) Urine Blood (Negative) Urine Nitrite (Negative) Urine Bilirubin (Negative) Urine Urobilinogen (<2.0) mg/dL Ur Leukocyte Esterase (Negative) Urine WBC (0-5) /hpf Ur Squamous Epith Cells (0-4) /hpf Urine Bacteria (None) /hpf Coronavirus (PCR) (Not Detectd) 01/04/21 01/04/21 01/04/21 Range/Units 13:26 13:26 13:26 WBC (3.8-10.6) k/uL RBC (3.80-5.40) m/uL Hgb (11.4-16.0) gm/dL Hct (34.0-46.0) % MCV (80.0-100.0) fL MCH (25.0-35.0) pg MCHC (31.0-37.0) g/dL RDW (11.5-15.5) % Plt Count (150-450) k/uL MPV Neutrophils % % Lymphocytes % % Monocytes % % Eosinophils % % Basophils % % Neutrophils # (1.3-7.7) k/uL Lymphocytes # (1.0-4.8) k/uL Monocytes # (0-1.0) k/uL Eosinophils # (0-0.7) k/uL Basophils # (0-0.2) k/uL Hypochromasia Anisocytosis Microcytosis PT (9.0-12.0) sec INR (<1.2) APTT (22.0-30.0) sec D-Dimer (<0.60) mg/L FEU Sodium (137-145) mmol/L Potassium (3.5-5.1) mmol/L Chloride (98-107) mmol/L Carbon Dioxide (22-30) mmol/L Anion Gap mmol/L BUN (7-17) mg/dL Creatinine (0.52-1.04) mg/dL Est GFR (CKD-EPI)AfAm (>60 ml/min/1.73 sqM) Est GFR (CKD-EPI)NonAf (>60 ml/min/1.73 sqM) Glucose (74-99) mg/dL Plasma Lactic Acid Loco 2.0 (0.7-2.0) mmol/L Calcium (8.4-10.2) mg/dL Total Bilirubin (0.2-1.3) mg/dL AST (14-36) U/L ALT (4-34) U/L Alkaline Phosphatase (38-126) U/L Troponin I 0.072 H* (0.000-0.034) ng/mL NT-Pro-B Natriuret Pep pg/mL Total Protein (6.3-8.2) g/dL Albumin (3.5-5.0) g/dL TSH (0.465-4.680) mIU/L Urine Color Light Yellow Urine Appearance Clear (Clear) Urine pH 7.0 (5.0-8.0) Ur Specific [place] 1.009 (1.001-1.035) Urine Protein 2+ H (Negative) Urine Glucose (UA) Negative (Negative) Urine Ketones Negative (Negative) Urine Blood Negative (Negative) Urine Nitrite Negative (Negative) Urine Bilirubin Negative (Negative) Urine Urobilinogen <2.0 (<2.0) mg/dL Ur Leukocyte Esterase Negative (Negative) Urine WBC <1 (0-5) /hpf Ur Squamous Epith Cells 1 (0-4) /hpf Urine Bacteria Rare H (None) /hpf Coronavirus (PCR) (Not Detectd) 01/04/21 01/04/21 01/04/21 Range/Units 13:26 13:26 13:26 WBC (3.8-10.6) k/uL RBC (3.80-5.40) m/uL Hgb (11.4-16.0) gm/dL Hct (34.0-46.0) % MCV (80.0-100.0) fL MCH (25.0-35.0) pg MCHC (31.0-37.0) g/dL RDW (11.5-15.5) % Plt Count (150-450) k/uL MPV Neutrophils % % Lymphocytes % % Monocytes % % Eosinophils % % Basophils % % Neutrophils # (1.3-7.7) k/uL Lymphocytes # (1.0-4.8) k/uL Monocytes # (0-1.0) k/uL Eosinophils # (0-0.7) k/uL Basophils # (0-0.2) k/uL Hypochromasia Anisocytosis Microcytosis PT (9.0-12.0) sec INR (<1.2) APTT (22.0-30.0) sec D-Dimer (<0.60) mg/L FEU Sodium (137-145) mmol/L Potassium (3.5-5.1) mmol/L Chloride (98-107) mmol/L Carbon Dioxide (22-30) mmol/L Anion Gap mmol/L BUN (7-17) mg/dL Creatinine (0.52-1.04) mg/dL Est GFR (CKD-EPI)AfAm (>60 ml/min/1.73 sqM) Est GFR (CKD-EPI)NonAf (>60 ml/min/1.73 sqM) Glucose (74-99) mg/dL Plasma Lactic Acid Loco (0.7-2.0) mmol/L Calcium (8.4-10.2) mg/dL Total Bilirubin (0.2-1.3) mg/dL AST (14-36) U/L ALT (4-34) U/L Alkaline Phosphatase (38-126) U/L Troponin I (0.000-0.034) ng/mL NT-Pro-B Natriuret Pep 50900 pg/mL Total Protein (6.3-8.2) g/dL Albumin (3.5-5.0) g/dL TSH 1.780 (0.465-4.680) mIU/L Urine Color Urine Appearance (Clear) Urine pH (5.0-8.0) Ur Specific [place] (1.001-1.035) Urine Protein (Negative) Urine Glucose (UA) (Negative) Urine Ketones (Negative) Urine Blood (Negative) Urine Nitrite (Negative) Urine Bilirubin (Negative) Urine Urobilinogen (<2.0) mg/dL Ur Leukocyte Esterase (Negative) Urine WBC (0-5) /hpf Ur Squamous Epith Cells (0-4) /hpf Urine Bacteria (None) /hpf Coronavirus (PCR) Not Detected (Not Detectd) - EKG Data -: EKG Interpreted by Me EKG Comments: 12-lead Electrocardiogram Interpretation Note EKG was reviewed and interpreted by myself. 12-lead ECG performed at 1313 is interpreted by me as revealing atrial flutter versus atrial fibrillation with variable AV block. At a rate of 164 beats per minute. Right axis deviation. TX interval is unobtainable. QS duration is 76 ms, QTc is 478 ms. There is an isolated T-wave inversion in lead III and aVF.. R wave progression across precordium was delayed.. By my interpretation this EKG is non-diagnostic for acute ischemia. Critical Care Time Critical Care Time: Yes Critical Care Time: Upon my evaluation, this patient had a high probability of imminent or life-threatening deterioration due to dyspnea, hypoxia, which required my direct attention, intervention, and personal management. I have personally provided 35 minutes of critical care time exclusive of time spent on separately billable procedures. Time includes review of laboratory data, radiology results, discussion with consultants, and monitoring for potential decompensation. Interventions were performed as documented in my note. Disposition Clinical Impression: Acute exacerbation of congestive heart failure, Atrial fibrillation with RVR, Atrial fibrillation and flutter, Elevated troponin, Elevated d-dimer, Hypoxia, A cute pulmonary edema, Pleural effusion Narrative: Acute on chronic hypoxic respiratory failure requiring NIPPV. Disposition: ADMITTED IP TO THIS HOSP Condition: Serious
[2021-01-04 13:53] LABS: Anisocytosis Slight; Basophils % (A) 0 %; Eosinophils % (A) 1 %; HCT 35.5 % (34.0-46.0); HGB 10.1 gm/dL (11.4-16.0); Hypochromasia Marked; Lymphocytes # (A) 0.5 k/uL (1.0-4.8); Lymphocytes % (A) 8 %; MCH 24.6 pg (25.0-35.0); MCHC 28.4 g/dL (31.0-37.0); MCV 86.7 fL (80.0-100.0); Mean Platelet Volume 9.6; Microcytosis Slight; Monocytes # (A) 0.4 k/uL (0-1.0); Monocytes % (A) 7 %; Neutrophils # (A) 4.9 k/uL (1.3-7.7); Neutrophils % (A) 83 %; Platelet Count 414 k/uL (150-450); RBC 4.09 m/uL (3.80-5.40); RDW 19.6 % (11.5-15.5); WBC 5.9 k/uL (3.8-10.6)
[2021-01-04 14:02] LABS: Albumin 3.7 g/dL (3.5-5.0); Calcium 9.7 mg/dL (8.4-10.2); Potassium 5.3 mmol/L (3.5-5.1); Total Bilirubin 0.6 mg/dL (0.2-1.3)
--- NOTE | 2021-01-04 14:31 | XR ---
EXAMINATION TYPE: XR chest 1V portable DATE OF EXAM: 01/04/2021 COMPARISON: Chest x-ray 10/22/2020 HISTORY: Dyspnea TECHNIQUE: Single frontal view of the chest is obtained. FINDINGS: Patient is rotated. Suspect the heart may be enlarged. Bibasilar increased attenuation is present, there is blunting of the costophrenic angles. No evident pneumothorax. Central vascularity a nd interstitium are increased. Postop change noted to the right shoulder. IMPRESSION: Correlate for congestive heart failure, suspect bibasilar effusions and associated edema versus atelectasis, pneumonia not excluded. Suspect cardiomegaly. Rotated exam.
[2021-01-04 14:34] LABS: INR 1.1 (<1.2); Partial Thromboplastin Time 25.6 sec (22.0-30.0); Prothrombin Time 11.7 sec (9.0-12.0)
[2021-01-04] MEDS: DILTIAZEM 125 MG in SODIUM CHLORIDE 0.9% 100 ML IV SCH (14:35)
[2021-01-04] MEDS ORDERED: HEPARIN SODIUM 1,000 UN/ML (10ML VL) IV ONE ×2 (14:57→15:40)
[2021-01-04] MEDS ORDERED: HEPARIN SODIUM 1,000 UN/ML (10ML VL) IV PRN ×2 (14:57→15:40)
[2021-01-04] MEDS ORDERED: HEPARIN SOD,PORK IN 0.45% NACL 25,000 UNIT in 0.45% NACL 1 250ML.BAG IV SCH ×2 (15:00→15:45)
[2021-01-04 15:45] LABS: Appearance,Urine Clear (Clear); Bacteria,Urine Rare /hpf; Bilirubin,Urine Negative (Negative); Blood,Urine Negative (Negative); Color,Urine Light Yellow; Glucose,Urine (UA) Negative (Negative); Ketones,Urine Negative (Negative); Leukocyte Esterase,Urine Negative (Negative); Nitrite,Urine Negative (Negative); Protein,Urine 2+ (Negative); Specific Gravity,Urine 1.009 (1.001-1.035); Squamous Epithelial Cell,Urine 1 /hpf (0-4); Urobilinogen,Urine <2.0 mg/dL (<2.0); WBC,Urine <1 /hpf (0-5)
[2021-01-04] MEDS ORDERED: NALOXONE 0.4 MG/ML 1 ML VIAL IV PRN (15:57)
[2021-01-04] MEDS ORDERED: DEXTROSE 5% IN WATER 100 ML with AMIODARONE 150 MG IV ONE (16:15)
[2021-01-04] MEDS ORDERED: IPRATROPIUM-ALBUTEROL 3 ML NEB INHALATION PRN (16:20)
[2021-01-04] MEDS ORDERED: AMIODARONE 360 MG in DEXTROSE 5% IN WATER 200 ML IV ONE ×2 (16:25)
[2021-01-04 18:37] LABS: Glucose,Whole Blood 123 mg/dL (75-99)
--- NOTE | 2021-01-04 19:03 | CONS ---
CONSULTATION PULMONARY/CRITICAL CARE CONSULTATION: REASON FOR CONSULTATION: Shortness of breath. The patient was seen in the emergency room, trauma room #1. The patient was recently at [facility] for about five days. The patient was apparently discharged this past Thursday. She was only home for about a day. She states that today when she woke up, she became very short of breath. For that reason, she came in to be evaluated. She was a [facility] for five days as mentioned. She does not known the name of the doctors that she saw there, but she apparently was cardioverted once for her atrial fibrillation and also had a left-sided thoracentesis. 800 cc of fluid was apparently removed. The patient states that this morning her breathing was much more severe and the patient was seen in the emergency room here. Apparently her saturations were in the 60s according to the EMS individuals who brought her into the emergency room. She denied any chest pain or chest pressure. She denied any fever or chills. She is not really coughing or producing any phlegm. The patient was apparently placed on BiPAP at 10/5 and 50%. She was started on a Cardizem drip of 5 mg an hour. She is not receiving any IV fluids. She was already seen by the ER physician, Cardiology, and myself. She tells me she was supposed to see me in the clinic on Thursday. She apparently never made that appointment. That was Thursday a week ago or on the I believe. MEDICAL HISTORY: Includes COPD, diabetes, GERD, hyperlipidemia, hypertension, DJD, spondylosis, diabetic retinopathy, and chronic back pain with previous back surgeries. SOCIAL HISTORY: Positive for previous tobacco use. She drinks alcohol rarely. No illicit drug use. SURGICAL HISTORY: Includes back surgery, hysterectomy, right shoulder surgery, left knee arthroscopy, colonoscopy, among other things. FAMILY HISTORY: Noncontributory. CURRENT HOME MEDICATIONS: Include albuterol, vitamin D2, Lantus insulin, Claritin, Singulair, Pamelor, Actos, MiraLAX, Senokot S, Kenalog cream, hydralazine, aspirin, metoprolol, Lasix, [place], melatonin, Diamox, and potassium chloride. ALLERGIES: Include AMOXICILLIN, ANAPROX, PREDNISOLONE AND STEROIDS. REVIEW OF SYSTEMS: CONSTITUTIONAL: Weakness. NEUROLOGIC: Negative. HEENT: Negative. CARDIOVASCULAR: Negative. PULMONARY: Shortness of breath. GI: Negative. : Negative. RHEUMATOLOGIC: Negative. IMMUNOLOGIC: Negative. NEUROLOGIC: Negative. PHYSICAL EXAMINATION: VITAL SIGNS: Current vital signs include a temperature of 98 degrees, heart rate 135- 140, respiratory rate 20, blood pressure 160/97, mean 118, saturations are 96% on BiPAP. BiPAP settings are 10/5 and 50%. She appears in no acute distress. She can speak in full sentences. Mild conversational dyspnea. No audible wheezing. No use of accessory muscles. HEENT examination is grossly unremarkable. BiPAP mask in place. NECK: Supple, full range of motion. No adenopathy. Neck veins are flat. CARDIOVASCULAR examination reveals tachycardia. It is regular. No distinct murmur. Heart sounds are distant. LUNGS: Reveal diminished breath sounds at the bases. Some crackles at the bases. Scattered rhonchi noted. No wheezes. ABDOMEN: Obese, bowel sounds are heard. EXTREMITIES are intact. There is slight edema. SKIN: Without rash. NEUROLOGIC examination is brief but nonfocal. LABS: Reviewed. White count 5.9, hemoglobin 10.1, hematocrit 35.5, platelet count 414,000. PT 11.7, INR 1.1, PTT 25.6. D-dimer 5.05. Sodium 145, potassium 5.3, chloride 97, CO2 40, anion gap 8. BUN and creatinine were 64 and 1.75. Her glucose is 125. Troponin 0.072 and her N terminal proBNP is nearly 34,000. Urine is negative. Coronavirus testing is negative. Chest x-ray shows changes of CHF. Current medications ordered include amiodarone drip at 0.5 mg/minute, Lipitor, Cardizem, Lasix IV 40, IV heparin, hydralazine, Imdur, metoprolol, and Narcan p.r.n. ASSESSMENT: 1. Acute hypoxemic respiratory failure secondary to congestive heart failure exacerbation and diastolic dysfunction, currently on BiPAP. 2. Recent admission to [facility] for five days, with cardioversion, and left- sided thoracentesis of 800 cc. 3. History of acute kidney injury. 4. History of diastolic congestive heart failure. 5. History of mild chronic obstructive pulmonary disease. 6. History of sleep apnea syndrome. 7. History of hypertension. 8. History of hyperlipidemia. 9. History of diabetes mellitus. 10.Prior history of tobacco use. 11.Diabetic neuropathy and diabetic retinopathy. 12.History of gastroesophageal reflux disease. 13.History of osteoarthritis.. PLAN: The patient be transferred to the ICU. Additional recommendations and suggestions are forthcoming. Dr. Song from Cardiology saw the patient. The patient was started on amiodarone at 0.5 mg/minute and IV heparin. In addition, he wrote for some additional cardiac medications. From the pulmonary standpoint, the primary issue is the CHF. We will continue to follow. We will add some DuoNeb. No additional recommendations are made. Prognosis is guarded. The patient will be in the ICU. Critical care time more than 30 minutes. MMODL / IJN: [id number] /
[2021-01-04] MEDS: IPRATROPIUM-ALBUTEROL 3 ML NEB INHALATION SCH (19:45)
--- NOTE | 2021-01-04 20:18 | CONS ---
CONSULTATION Mrs. Rinaldi is a 60-year-old female who presented to the emergency room with symptoms of progressive dyspnea and tachycardia. The patient had multiple admissions to the hospital. She has a history of hypertension, hyperlipidemia, and diabetes. She underwent cardiac catheterization in 2016, had no evidence of obstructive coronary artery disease. Apparently, she has a history of chronic tobacco use and she has stopped smoking just very recently. She was very dyspneic recently and was seen in the emergency room at [facility]. Subsequently, admitted and underwent thoracentesis and cardioversion. Full detail of that admission is not available to me. She has significant symptoms again and she came into the emergency room and to be admitted. In the emergency room, she was noted to be tachycardic. She denies any chest pain. She has no dizziness. She has some peripheral edema. No clear PND nor orthopnea. Reviewing her old records, she had an echocardiogram, most recently done in October of this year, and at that time her ejection fraction was 55-60 percent with severe pulmonary hypertension measuring 69 mmHg. She had a pleural effusion, trace to mild mitral regurgitation. She has been seen in the past by Dr. Dexter and Dr. Aguilar and has a history of diastolic dysfunction heart failure. History of chronic obstructive pulmonary disease and history of chronic kidney disease. MEDICATION: At the time of presentation include hydralazine 50 mg twice a day, Actos, Pamelor, Singulair, Lopressor 50 mg twice a day, aspirin, Lasix 40 mg daily, loratadine, albuterol, insulin. REVIEW OF SYSTEMS: RESPIRATORY SYSTEM: She has history of chronic obstructive lung disease, pulmonary hypertension and dyspnea on exertion. She had prior history of smoking. GI SYSTEM: She has no recent nausea and vomiting. No GI bleeding. SYSTEM: No dysuria or hematuria. NERVOUS SYSTEM: No history of stroke or seizure. The patient was hypoxemic on presentation. She is on BiPAP at this time. PHYSICAL EXAMINATION: She is a 50-year-old female, on BiPAP, mildly dyspneic. Blood pressure running in the 140s to 160s with a heart rate in 140s. HEAD: Normocephalic. EYES: Sclerae anicteric. NECK: No bruit. LUNGS: With decreased breath sounds, more on the right side with dullness in the base and decreased breath sounds bilaterally. HEART: Tachycardic, S1-S2 no rub or systolic murmur. ABDOMEN: Soft, nontender. EXTREMITIES: +1 edema. LAB DATA: Revealed a hemoglobin of 10.1, BUN and creatinine of 64 and 1.75, which is better than it was in October, a potassium of 5.3. Her troponin 0.072. Her NT proBNP 33,500. It was 24,200 in October. Her troponin has been elevated throughout all her admission. Her rhythm strip are consistent with atrial tachycardia with 2-1 conduction. IMPRESSION: 1. Symptoms of progressive dyspnea, multifactorial. The patient has a evidence of congestive heart failure with preserved systolic function, as well as history of obstructive lung disease and pulmonary hypertension, and she has the atrial tachycardia. 2. Status post recent cardioversion. Details of that event are unclear. 3. Recent thoracentesis. 4. Prior history of smoking. 5. History of hypertension. 6. History of diabetes mellitus. RECOMMENDATION: From the cardiac standpoint, I will start the patient on amiodarone to see if we can slow her down. Also initiate anticoagulation. I will continue the beta danae and will continue diuresis. I will try to obtain the workup that was done in [facility]. She had an echocardiogram done recently, so there is no reason to repeat it at this time. Depending on her progress, further recommendation will be made. Thank you for this consult. We will follow with you. JOSÉ MANUEL / LESLYE: [id number] /
[2021-01-04] MEDS ORDERED: METOPROLOL TARTRATE 50 MG TAB PO SCH (21:00)
[2021-01-04] MEDS: FUROSEMIDE 10 MG/ML 4 ML VIAL IV SCH (21:23)
[2021-01-04] MEDS: hydrALAZINE HCL 50 MG TAB PO SCH (21:24)
[2021-01-04 22:17] LABS: Glucose,Whole Blood 169 mg/dL (75-99)
[2021-01-04] MEDS ORDERED: AMIODARONE 450 MG in DEXTROSE 5% IN WATER 250 ML IV SCH ×2 (22:25)
[2021-01-05] MEDS: DILTIAZEM 125 MG in SODIUM CHLORIDE 0.9% 100 ML IV SCH (03:15)
[2021-01-05 04:55] LABS: Anisocytosis Slight; Basophils % (A) 0 %; Eosinophils # (A) 0.1 k/uL (0-0.7); Eosinophils % (A) 1 %; HCT 32.9 % (34.0-46.0); HGB 9.3 gm/dL (11.4-16.0); Hypochromasia Marked; Lymphocytes # (A) 0.8 k/uL (1.0-4.8); Lymphocytes % (A) 16 %; MCH 24.7 pg (25.0-35.0); MCHC 28.2 g/dL (31.0-37.0); MCV 87.6 fL (80.0-100.0); Mean Platelet Volume 9.3; Microcytosis Slight; Monocytes # (A) 0.5 k/uL (0-1.0); Monocytes % (A) 10 %; Neutrophils # (A) 3.6 k/uL (1.3-7.7); Neutrophils % (A) 71 %; Platelet Count 371 k/uL (150-450); RBC 3.75 m/uL (3.80-5.40); RDW 19.5 % (11.5-15.5)
[2021-01-05 05:07] LABS: Calcium 9.1 mg/dL (8.4-10.2); Magnesium 2.5 mg/dL (1.6-2.3); Potassium 5.2 mmol/L (3.5-5.1)
[2021-01-05 05:09] LABS: INR 1.1 (<1.2); Partial Thromboplastin Time 54.2 sec (22.0-30.0); Prothrombin Time 11.9 sec (9.0-12.0)
[2021-01-05 07:14] LABS: Glucose,Whole Blood 149 mg/dL (75-99)
--- NOTE | 2021-01-05 07:45 | PN ---
PROGRESS NOTE Mrs. Rinaldi is a 60-year-old female who presented to the emergency room yesterday with symptoms of progressive dyspnea and tachycardia. She was noted to be in atrial tachycardia with rapid ventricular response. She has history of congestive heart failure with preserved systolic function. She has no evidence of documented obstructive lung disease. She has underwent thoracentesis as well as cardioversion at [facility] recently. She is feeling better this morning, but she continues to be on the BiPAP. Her ventricular response is better. She denies any chest pain. She denies any dizziness. Her urine output is good. We are awaiting the results from [facility] regarding her evaluation and workup at that time. She continues to be on IV amiodarone. She is on IV Cardizem, Lasix IV 40 mg twice a day, she is on IV heparin, hydralazine 50 mg twice a day, metoprolol tartrate 50 mg twice a day, isosorbide mononitrate 30 mg daily. PHYSICAL EXAMINATION: VITAL SIGNS: Blood pressure is running in the one teens with a heart rate in the 70s to 90s. LUNGS: With decreased air exchange. No wheezes. HEART: Irregular irregular S1-S2, no S3 with a systolic murmur. No diastolic murmur. ABDOMEN: Soft, obese, nontender. EXTREMITIES: +1 edema. LAB DATA: Showed BUN and creatinine 66 and 1.76, which is somewhat similar to yesterday. Her potassium is 5.2. Her hemoglobin is 9.3. IMPRESSION: 1. Respiratory failure with element of congestive heart failure with preserved systolic function. 2. Chronic tobacco use and chronic obstructive lung disease. 3. Chronic kidney disease. 4. Atrial tachycardia. 5. History of hypertension. 6. Hyperlipidemia. 7. Diabetes mellitus. 8. Prior history of smoking. 9. Obesity. RECOMMENDATION: From the cardiac standpoint, I will switch her to oral amiodarone, as well as oral anticoagulation. I will continue IV diuretics for 24 hours. We will continue on the IV Cardizem for now. If her rate is stable then that will be stopped. I will try to obtain the workup that was done at [facility]. Depending on her progress, recommendation will be made regarding the need to undergo ablation. MMODL / IJN: [id number] /
[2021-01-05] MEDS: IPRATROPIUM-ALBUTEROL 3 ML NEB INHALATION SCH ×4 (08:49→19:09)
[2021-01-05] MEDS: hydrALAZINE HCL 50 MG TAB PO SCH ×2 (09:05→20:17)
[2021-01-05] MEDS: FUROSEMIDE 10 MG/ML 4 ML VIAL IV SCH ×2 (09:06→20:16)
[2021-01-05] MEDS: ATORVASTATIN 40 MG TAB PO SCH (09:06)
[2021-01-05] MEDS: ISOSORBIDE MONONITRATE ER 30 MG TAB.ER.24H PO SCH (09:06)
[2021-01-05] MEDS: APIXABAN 5 MG TAB PO SCH ×2 (09:06→20:16)
[2021-01-05] MEDS: METOPROLOL TARTRATE 50 MG TAB PO SCH ×3 (09:06→20:17)
[2021-01-05] MEDS: AMIODARONE 200 MG TAB PO SCH ×2 (09:06→20:17)
--- NOTE | 2021-01-05 09:41 | P.PN ---
Subjective Progress Note Date: 01/05/21 Principal diagnosis: Shortness of breath. Progress note dated 01/05/2021. 60-year-old black female that was seen yesterday in the emergency department. The patient was recently at [facility] in [place], for about 5 days. She was discharged this past Thursday. While there, she had a left-sided thoracentesis and 800 mL was removed from the left pleural space, she had a cardioversion for her chronic atrial fibrillation. She presented to the emergency department yesterday after only being home one day, with complaints of increasing shortness of breath. Currently, she is on BiPAP, with settings of IPAP 10, EPAP 5, and 50%. We will attempt 15 they're high flow O2. She's currently on amiodarone 0.5 mg/m, and a Cardizem drip at 15 mg per hour. She is not receiving any IV fluids. She is feeling better. The lower extremity edema is improved. Her chest x-rays a bit improved as well. She has a history of COPD, diabetes mellitus, gastroesophageal reflux disease, hyperlipidemia, hypertension, DJD, diabetic retinopathy, and chronic back pain. She was to see me in the office on December 28, but she did not show up for the appointment. White count 5, hemoglobin 9.3, hematocrit 32.9, and platelet count 371,000. PT/INR normal. PTT is 54.2. Sodium 141, potassium 5.2, chlorides 98, CO2 39, anion gap 4, BUN 66, creatinine 1.76. Chest x-ray shows improvement I'm status, but she still does have bilateral left greater than right effusions. Objective - Vital Signs Vital signs: Vital Signs Temp 98.7 F 01/05/21 04:00 Pulse 86 01/05/21 09:02 Resp 22 01/05/21 09:00 BP 118/88 01/05/21 09:00 Pulse Ox 90 L 01/05/21 09:00 Intake & Output 01/04/21 01/05/21 01/05/21 18:59 06:59 18:59 Intake Total 457.167 200 Output Total 300 Balance 157.167 200 Weight 90.855 kg 94.4 kg Intake: IV 20 0.9 Normal Saline @ 20mL/ 20 hr Intake, IV Titration 187.167 Amount Diltiazem 125 mg In 125.000 Sodium Chloride 0.9% 100 ml @ Per Protocol IV .Q0M [facility] Rx#:[id number] Heparin Sod,Pork in 0.45% 62.167 NaCl 25,000 unit In 0.45 % NaCl 1 250ml.bag @ 11. 006 UNITS/KG/HR 10 mls/hr IV .Q24H [facility] Rx#: [id number] Oral 250 200 Output: Urine 300 Other: Voiding Method External Catheter External Catheter # Voids 0 0 - Exam No acute distress, oriented 3. Currently on 15 L high flow nasal cannula. No audible wheezing, use of accessory muscles, or conversational dyspnea. HEENT examination is grossly unremarkable. Neck supple. Full range of motion. No adenopathy thyromegaly or neck vein distention. Cardiovascular examination reveals an irregular rhythm and rate. S1-S2 normal. No S3 or S4. No discernible murmur noted. Heart sounds are very distant. Heart rate 86 bpm. Lungs reveal scattered bilateral rhonchi. No wheezes or crackles. There is dullness at the bases. Breath sounds are equal bilaterally. Abdomen soft bowel sounds are heard. No masses or tenderness. Extremities are intact. No cyanosis or clubbing noted. There is 1+ pitting edema appreciated. Skin is without rash or lesion. Neurologic examination is brief but nonfocal. - Labs CBC & Chem 7: 01/05/21 04:11 01/05/21 04:11 Labs: Abnormal Lab Results - Last 24 Hours (Table) 01/04/21 01/04/21 01/04/21 Range/Units 13:26 13:26 13:26 RBC (3.80-5.40) m/uL Hgb 10.1 L (11.4-16.0) gm/dL Hct (34.0-46.0) % MCH 24.6 L (25.0-35.0) pg MCHC 28.4 L (31.0-37.0) g/dL RDW 19.6 H (11.5-15.5) % Lymphocytes # 0.5 L (1.0-4.8) k/uL APTT (22.0-30.0) sec D-Dimer 5.05 H (<0.60) mg/L FEU Potassium 5.3 H (3.5-5.1) mmol/L Chloride 97 L (98-107) mmol/L Carbon Dioxide 40 H (22-30) mmol/L BUN 64 H (7-17) mg/dL Creatinine 1.75 H (0.52-1.04) mg/dL Glucose 125 H (74-99) mg/dL POC Glucose (mg/dL) (75-99) mg/dL Magnesium (1.6-2.3) mg/dL Troponin I (0.000-0.034) ng/mL Urine Protein (Negative) Urine Bacteria (None) /hpf 01/04/21 01/04/21 01/04/21 Range/Units 13:26 13:26 17:46 RBC (3.80-5.40) m/uL Hgb (11.4-16.0) gm/dL Hct (34.0-46.0) % MCH (25.0-35.0) pg MCHC (31.0-37.0) g/dL RDW (11.5-15.5) % Lymphocytes # (1.0-4.8) k/uL APTT (22.0-30.0) sec D-Dimer (<0.60) mg/L FEU Potassium (3.5-5.1) mmol/L Chloride (98-107) mmol/L Carbon Dioxide (22-30) mmol/L BUN (7-17) mg/dL Creatinine (0.52-1.04) mg/dL Glucose (74-99) mg/dL POC Glucose (mg/dL) (75-99) mg/dL Magnesium (1.6-2.3) mg/dL Troponin I 0.072 H* 0.111 H* (0.000-0.034) ng/mL Urine Protein 2+ H (Negative) Urine Bacteria Rare H (None) /hpf 01/04/21 01/04/21 01/04/21 Range/Units 18:34 21:23 21:23 RBC (3.80-5.40) m/uL Hgb (11.4-16.0) gm/dL Hct (34.0-46.0) % MCH (25.0-35.0) pg MCHC (31.0-37.0) g/dL RDW (11.5-15.5) % Lymphocytes # (1.0-4.8) k/uL APTT 42.6 H (22.0-30.0) sec D-Dimer (<0.60) mg/L FEU Potassium (3.5-5.1) mmol/L Chloride (98-107) mmol/L Carbon Dioxide (22-30) mmol/L BUN (7-17) mg/dL Creatinine (0.52-1.04) mg/dL Glucose (74-99) mg/dL POC Glucose (mg/dL) 123 H (75-99) mg/dL Magnesium (1.6-2.3) mg/dL Troponin I 0.116 H* (0.000-0.034) ng/mL Urine Protein (Negative) Urine Bacteria (None) /hpf 01/04/21 01/05/21 01/05/21 Range/Units 22:15 04:11 04:11 RBC 3.75 L (3.80-5.40) m/uL Hgb 9.3 L (11.4-16.0) gm/dL Hct 32.9 L (34.0-46.0) % MCH 24.7 L (25.0-35.0) pg MCHC 28.2 L (31.0-37.0) g/dL RDW 19.5 H (11.5-15.5) % Lymphocytes # 0.8 L (1.0-4.8) k/uL APTT (22.0-30.0) sec D-Dimer (<0.60) mg/L FEU Potassium 5.2 H (3.5-5.1) mmol/L Chloride (98-107) mmol/L Carbon Dioxide 39 H (22-30) mmol/L BUN 66 H (7-17) mg/dL Creatinine 1.76 H (0.52-1.04) mg/dL Glucose 167 H (74-99) mg/dL POC Glucose (mg/dL) 169 H (75-99) mg/dL Magnesium 2.5 H (1.6-2.3) mg/dL Troponin I (0.000-0.034) ng/mL Urine Protein (Negative) Urine Bacteria (None) /hpf 01/05/21 01/05/21 Range/Units 04:11 07:13 RBC (3.80-5.40) m/uL Hgb (11.4-16.0) gm/dL Hct (34.0-46.0) % MCH (25.0-35.0) pg MCHC (31.0-37.0) g/dL RDW (11.5-15.5) % Lymphocytes # (1.0-4.8) k/uL APTT 54.2 H (22.0-30.0) sec D-Dimer (<0.60) mg/L FEU Potassium (3.5-5.1) mmol/L Chloride (98-107) mmol/L Carbon Dioxide (22-30) mmol/L BUN (7-17) mg/dL Creatinine (0.52-1.04) mg/dL Glucose (74-99) mg/dL POC Glucose (mg/dL) 149 H (75-99) mg/dL Magnesium (1.6-2.3) mg/dL Troponin I (0.000-0.034) ng/mL Urine Protein (Negative) Urine Bacteria (None) /hpf Assessment and Plan Assessment: Acute hypoxemic respiratory failure secondary to congestive heart failure exacerbation and diastolic dysfunction, currently on BiPAP. Recent admission to [facility] for 5 days, with cardioversion, and left- sided thoracentesis of 800 mL. History of acute kidney injury. History of diastolic CHF. History of mild COPD. History of sleep apnea syndrome. History of hypertension. History of hyperlipidemia. History of diabetes mellitus. Prior history of tobacco use. Diabetic neuropathy and diabetic retinopathy. History of gastroesophageal reflux disease. History of osteoarthritis. Plan: Plan dated 01/05/2021. Currently, the patient is doing better. We did transfer the patient to the intensive care unit. The patient will be switched from BiPAP over to high flow nasal cannula. She remains on amiodarone 0.5 mg/m, and Cardizem drip at 15 mg an hour. No additional recommendations are made at this time. We'll continue to diuresis her. Her lower extremity edema seems to be improved. Prognosis is guarded. Additional recommendations and suggestions are forthcoming. Time with Patient: Greater than 30
--- NOTE | 2021-01-05 10:04 | XR ---
EXAMINATION TYPE: XR chest 1V DATE OF EXAM: 01/05/2021 COMPARISON: 01/04/2021 HISTORY: 60 years Female. STUDY INDICATION GIVEN: Shortness of breath TECHNIQUE: Semiupright AP portable chest radiograph FINDINGS AND IMPRESSION: Bilateral interstitial opacities, moderate left pleural effusion and cardiomegaly suggests congestive heart failure. Left lower lobe opacity with air bronchograms highly concerning for pneumonia, not significantly [place] ged since prior. There is an oval-shaped 2.1 cm density in the left lower hemithorax which is more apparent on this st udy and was probably present on prior study however obscured by external lead and lung opacities, thi s may represent a pulmonary nodule. Continued chest imaging recommended to exclude developing maligna ncy. No pneumothorax seen. No acute osseous abnormality. Surgical anchors noted in the right humeral head. I recommend removing all external devices lines and tubes from the chest imaging field (when possible ) on subsequent radiographs for optimal evaluation.
[2021-01-05] MEDS ORDERED: HYDROcodone/APAP 10-325MG 1 EACH TAB PO PRN (10:30)
[2021-01-05] MEDS ORDERED: MELATONIN 3 MG TABLET PO PRN (10:30)
[2021-01-05] MEDS ORDERED: SENNOSIDES-DOCUSATE SODIUM 1 EACH TAB PO PRN (10:30)
--- NOTE | 2021-01-05 11:19 | P.HPIM ---
History of Present Illness H&P Date: 01/05/21 Chief Complaint: CHF This is a 60-year-old female patient at the [facility] she has a past medical history of COPD, diabetes mellitus type 2, GERD, hypertension, hyperlipi demia, generalized osteoarthritis, tobacco use and dependence. Patient was recently hospitalized at [facility] in [place] and was discharged about 2-3 days ago. While she was at [facility] she had a left-sided thoracentesis and about 800 mL removed from the pleural space. She underwent cardioversion for her chronic atrial fibrillation. She was then sent home after 5 days. She was home for about a day and then presented back to the hospital yesterday with increasing shortness of breath. She was hypoxic noted to be 60% per EMS's reports she is on 5 L nasal cannula at home. Patient was placed on BiPAP upon arrival to the emergency department. She was given IV Lasix. The patient was also found to be in A. fib/A flutter with RVR and was given 15 mg IV push of Cardizem. Troponin was mildly elevated at 0.072, BUN 64, creatinine 1.75. Chest x-ray revealed bibasilar effusions as well as pulmonary vascular congestion. She was transferred to the ICU. Patient continues on high flow ox ygen currently saturating 90%, blood pressure stable at 118/88 heart rate is in the 70s. She continues on amiodarone 400 mg twice a day as well as Cardizem drip. Currently receiving 40 mg IV push of Lasix as well as metolazone 2.5 mg. Review of Systems Constitutional: Reports chronic pain, Reports fatigue, Reports weakness, Denies chills, Denies fever Ears, nose, mouth and throat: Denies dysphagia, Denies headache, Denies mouth pain, Denies nasal congestion, Denies nasal discharge, Denies swelling in mouth, Denies swelling in throat Cardiovascular: Reports dyspnea on exertion, Reports edema, Reports irregular heart beat, Reports leg edema, Reports orthopnea, Reports paroxysmal nocturnal dyspnea, Reports shortness of breath, Denies chest pain, Denies palpitations, Denies syncope Respiratory: Reports home oxygen, Denies congestion, Denies cough, Denies cough with sputum, Denies dyspnea, Denies hemoptysis, Denies wheezing Gastrointestinal: Reports bloating, Reports loss of appetite, Denies abdominal pain, Denies constipation, Denies diarrhea, Denies dyspepsia, Denies heartburn, Denies nausea, Denies vomiting Genitourinary: Denies difficulty voiding, Denies dysuria, Denies flank pain, Denies hematuria, Denies nocturia, Denies urgency Neurological: Denies confusion, Denies headaches, Denies memory loss, Denies numbness, Denies paralysis, Denies seizures, Denies syncope, Denies weakness, Denies visual changes Psychiatric: Denies anxiety, Denies confusion, Denies depression, Denies insomnia, Denies mood swings, Denies suicidal ideation Endocrine: Denies fatigue, Denies nocturia, Denies palpitations Past Medical History Past Medical History: Asthma, COPD, Diabetes Mellitus, Eye Disorder, GERD/R eflux, Hyperlipidemia, Hypertension, Osteoarthritis (OA) Additional Past Medical History / Comment(s): spondolysis, , blurry vision & eye problems ?related to diabetes History of Any Multi-Drug Resistant Organisms: None Reported Past Surgical History: Back Surgery, Hysterectomy, Orthopedic Surgery Additional Past Surgical History / Comment(s): RT shoulder surgery, LT arthroscopy knee. COLONOSCOPY. BACK SX X 2 Past Anesthesia/Blood Transfusion Reactions: No Reported Reaction Past Psychological History: No Psychological Hx Reported Smoking Status: Former smoker Past Alcohol Use History: Rare Additional Past Alcohol Use History / Comment(s): pt. smokes 2 cigs/week, has smoked since age of 12, states one pack will last her through the week. Past Drug Use History: None Reported - Past Family History Mother Family Medical History: No Reported History Medications and Allergies Home Medications Medication Instructions Recorded Confirmed Type Albuterol Sulfate [Proair Hfa] 1 - 2 puff INHALATION RT-Q6H PRN 08/24/20 01/04/21 History Ergocalciferol [Vitamin D2 (1250 1,250 mcg PO WE 08/24/20 01/04/21 History Mcg = 60312 Iu)] INSULIN LISPRO (humaLOG) [humaLOG] See Protocol SQ AC-TID 08/24/20 01/04/21 History Loratadine [Claritin] 10 mg PO DAILY 08/24/20 01/04/21 History Montelukast [Singulair] 10 mg PO HS 08/24/20 01/04/21 History Nortriptyline [Pamelor] 25 mg PO DAILY 08/24/20 01/04/21 History Pioglitazone [Actos] 30 mg PO DAILY 08/24/20 01/04/21 History Polyethylene Glycol 3350 [Miralax] 17 gm PO DAILY PRN 08/24/20 01/04/21 History Sennosides-Docusate Sodium 1 tab PO BID PRN 08/24/20 01/04/21 History [Senokot-S] Triamcinolone 0.025% Cream 1 applic TOPICAL BID PRN 08/24/20 01/04/21 History [Kenalog 0.025% Cream] Aspirin 81 mg PO DAILY chew 08/29/20 01/04/21 Rx HYDROcodone/APAP 10-325MG [Ruffin 1 tab PO Q6HR PRN #12 tab 10/22/20 01/04/21 Rx 10-325] Apixaban [Eliquis] 2.5 mg PO BID 01/04/21 01/04/21 History Bumetanide [Bumex] 1 mg PO DAILY 01/04/21 01/04/21 History Furosemide [Lasix] 40 mg PO BID 01/04/21 01/04/21 History Insulin Detemir (Levemir) [Levemir] 25 unit SQ HS 01/04/21 01/04/21 History Melatonin 6 mg PO HS PRN 01/04/21 01/04/21 History Potassium Chloride ER [K-Dur 10] 10 meq PO BID 01/04/21 01/04/21 History hydrALAZINE HCL [Apresoline] 25 mg PO BID 01/04/21 01/04/21 History metOLazone 2.5 mg PO FR@1200 01/04/21 01/04/21 History Allergies Allergy/AdvReac Type Severity Reaction Status Date / Time amoxicillin [Amoxicillin] Allergy Rash/Hives Verified 01/04/21 16:05 latanoprost AdvReac blurry Verified 01/04/21 16:05 vision prednisolone AdvReac Swelling Verified 01/04/21 16:05 steroids AdvReac affected Uncoded 10/12/20 15:10 eyes Physical Exam Vitals: Vital Signs Temp Pulse Pulse Resp BP BP Pulse Ox 01/05/21 10:00 74 27 H 115/83 95 01/05/21 09:02 86 01/05/21 09:00 72 22 118/88 90 L 01/05/21 08:49 105 H 01/05/21 08:00 98 15 115/89 90 L 01/05/21 07:00 117 H 22 119/96 93 L 01/05/21 06:00 105 H 15 119/82 93 L 01/05/21 05:00 76 15 116/75 93 L 01/05/21 04:00 98.7 F 81 15 118/88 94 L 01/05/21 03:00 116 H 19 129/95 91 L 01/05/21 02:00 128 H 16 141/103 93 L 01/05/21 01:00 133 H 16 143/98 93 L 01/05/21 00:00 98.9 F 133 H 16 147/101 92 L 01/04/21 23:00 133 H 15 147/104 91 L 01/04/21 22:30 133 H 17 147/104 92 L 01/04/21 22:00 133 H 21 143/104 92 L 01/04/21 21:30 134 H 23 152/104 91 L 01/04/21 21:00 133 H 20 157/111 92 L 01/04/21 20:30 133 H 19 164/108 91 L 01/04/21 20:00 99.2 F 134 H 24 158/120 92 L 01/04/21 19:46 112 H 01/04/21 19:00 133 H 21 158/119 93 L 01/04/21 18:45 98.3 F 134 H 36 H 138/111 90 L 01/04/21 17:47 134 H 20 157/113 94 L 01/04/21 17:32 134 H 19 166/119 01/04/21 17:09 135 H 20 168/114 01/04/21 16:45 98.6 F 137 H 20 172/122 01/04/21 16:30 134 H 20 156/126 01/04/21 16:03 135 H 18 160/106 96 01/04/21 14:14 138 H 20 160/97 96 01/04/21 13:18 98 F 156 H 18 140/97 100 Intake and Output 01/04/21 01/05/21 01/05/21 22:59 06:59 14:59 Intake Total 231.167 226 200 Output Total 0 300 Balance 231.167 -74 200 Intake: IV 20 0.9 Normal Saline @ 20mL/ 20 hr Intake, IV Titration 111.167 76 Amount Diltiazem 125 mg In 49.000 76 Sodium Chloride 0.9% 100 ml @ Per Protocol IV .Q0M [facility] Rx#:[id number] Heparin Sod,Pork in 0.45% 62.167 NaCl 25,000 unit In 0.45 % NaCl 1 250ml.bag @ 11. 006 UNITS/KG/HR 10 mls/hr IV .Q24H [facility] Rx#: [id number] Oral 100 150 200 Output: Urine 0 300 Other: Voiding Method External Catheter External Catheter External Catheter # Voids 0 0 0 Weight 90.855 kg 94.4 kg - Constitutional General appearance: cooperative, mild distress, obese - EENT Eyes: no abnormal pupil, EOMI, PERRLA, normal appearance ENT: hearing grossly normal, normal oropharynx, no thrush - Neck Neck: no lymphadenopathy, normal ROM, no stridor, no thyromegaly - Respiratory Respiratory: bilateral: diminished, dullness, rhonchi, negative: wheezing - Cardiovascular Rhythm: irregularly irregular Heart sounds: normal: S1, S2 - Gastrointestinal General gastrointestinal: distended, no hepatomegaly, normal bowel sounds, no organomegaly, no splenomegaly, no tenderness - Neurologic Neurologic: CNII-XII intact - Musculoskeletal Musculoskeletal: generalized weakness, strength equal bilaterally - Psychiatric Psychiatric: A&O x's 3, appropriate affect, intact judgment & insight Results CBC & Chem 7: 01/05/21 04:11 01/05/21 04:11 Labs: Abnormal Lab Results - Last 24 Hours (Table) 01/04/21 01/04/21 01/04/21 Range/Units 13:26 13:26 13:26 RBC (3.80-5.40) m/uL Hgb 10.1 L (11.4-16.0) gm/dL Hct (34.0-46.0) % MCH 24.6 L (25.0-35.0) pg MCHC 28.4 L (31.0-37.0) g/dL RDW 19.6 H (11.5-15.5) % Lymphocytes # 0.5 L (1.0-4.8) k/uL APTT (22.0-30.0) sec D-Dimer 5.05 H (<0.60) mg/L FEU Potassium 5.3 H (3.5-5.1) mmol/L Chloride 97 L (98-107) mmol/L Carbon Dioxide 40 H (22-30) mmol/L BUN 64 H (7-17) mg/dL Creatinine 1.75 H (0.52-1.04) mg/dL Glucose 125 H (74-99) mg/dL POC Glucose (mg/dL) (75-99) mg/dL Magnesium (1.6-2.3) mg/dL Troponin I (0.000-0.034) ng/mL Urine Protein (Negative) Urine Bacteria (None) /hpf 01/04/21 01/04/21 01/04/21 Range/Units 13:26 13:26 17:46 RBC (3.80-5.40) m/uL Hgb (11.4-16.0) gm/dL Hct (34.0-46.0) % MCH (25.0-35.0) pg MCHC (31.0-37.0) g/dL RDW (11.5-15.5) % Lymphocytes # (1.0-4.8) k/uL APTT (22.0-30.0) sec D-Dimer (<0.60) mg/L FEU Potassium (3.5-5.1) mmol/L Chloride (98-107) mmol/L Carbon Dioxide (22-30) mmol/L BUN (7-17) mg/dL Creatinine (0.52-1.04) mg/dL Glucose (74-99) mg/dL POC Glucose (mg/dL) (75-99) mg/dL Magnesium (1.6-2.3) mg/dL Troponin I 0.072 H* 0.111 H* (0.000-0.034) ng/mL Urine Protein 2+ H (Negative) Urine Bacteria Rare H (None) /hpf 01/04/21 01/04/21 01/04/21 Range/Units 18:34 21:23 21:23 RBC (3.80-5.40) m/uL Hgb (11.4-16.0) gm/dL Hct (34.0-46.0) % MCH (25.0-35.0) pg MCHC (31.0-37.0) g/dL RDW (11.5-15.5) % Lymphocytes # (1.0-4.8) k/uL APTT 42.6 H (22.0-30.0) sec D-Dimer (<0.60) mg/L FEU Potassium (3.5-5.1) mmol/L Chloride (98-107) mmol/L Carbon Dioxide (22-30) mmol/L BUN (7-17) mg/dL Creatinine (0.52-1.04) mg/dL Glucose (74-99) mg/dL POC Glucose (mg/dL) 123 H (75-99) mg/dL Magnesium (1.6-2.3) mg/dL Troponin I 0.116 H* (0.000-0.034) ng/mL Urine Protein (Negative) Urine Bacteria (None) /hpf 01/04/21 01/05/21 01/05/21 Range/Units 22:15 04:11 04:11 RBC 3.75 L (3.80-5.40) m/uL Hgb 9.3 L (11.4-16.0) gm/dL Hct 32.9 L (34.0-46.0) % MCH 24.7 L (25.0-35.0) pg MCHC 28.2 L (31.0-37.0) g/dL RDW 19.5 H (11.5-15.5) % Lymphocytes # 0.8 L (1.0-4.8) k/uL APTT (22.0-30.0) sec D-Dimer (<0.60) mg/L FEU Potassium 5.2 H (3.5-5.1) mmol/L Chloride (98-107) mmol/L Carbon Dioxide 39 H (22-30) mmol/L BUN 66 H (7-17) mg/dL Creatinine 1.76 H (0.52-1.04) mg/dL Glucose 167 H (74-99) mg/dL POC Glucose (mg/dL) 169 H (75-99) mg/dL Magnesium 2.5 H (1.6-2.3) mg/dL Troponin I (0.000-0.034) ng/mL Urine Protein (Negative) Urine Bacteria (None) /hpf 01/05/21 01/05/21 Range/Units 04:11 07:13 RBC (3.80-5.40) m/uL Hgb (11.4-16.0) gm/dL Hct (34.0-46.0) % MCH (25.0-35.0) pg MCHC (31.0-37.0) g/dL RDW (11.5-15.5) % Lymphocytes # (1.0-4.8) k/uL APTT 54.2 H (22.0-30.0) sec D-Dimer (<0.60) mg/L FEU Potassium (3.5-5.1) mmol/L Chloride (98-107) mmol/L Carbon Dioxide (22-30) mmol/L BUN (7-17) mg/dL Creatinine (0.52-1.04) mg/dL Glucose (74-99) mg/dL POC Glucose (mg/dL) 149 H (75-99) mg/dL Magnesium (1.6-2.3) mg/dL Troponin I (0.000-0.034) ng/mL Urine Protein (Negative) Urine Bacteria (None) /hpf Thrombosis Risk Factor Assmnt - Choose All That Apply Each Factor Represents 1 point: Abnormal pulmonary function (COPD), Obesity (BMI >25) Each Risk Factor Represents 2 Points: Age 61-74 years Thrombosis Risk Factor Assessment Total Risk Factor Score: 4 Thrombosis Risk Factor Assessment Level: Moderate Risk Assessment and Plan Plan: 1. Acute hypoxic respiratory failure secondary to acute exacerbation of diastolic heart failure. History of recent admission to [facility] status post cardioversion and left-sided thoracentesis. Continue on IV furosemide 40 mg IV push twice a day, as well as metolazone 2.5 mg. Continue on high flow oxygen, followed by pulmonary medicine and hand collator. 2. Atrial tachycardia. history of recent recent cardioversion at [facility]. Continue amiodarone 400 mg twice a day, metoprolol 50 mg 3 times a day and Cardizem drip, Eliquis 5 mg twice a day for anticoagulation 3. Acute kidney injury with chronic kidney disease stage III. We'll monitor kidney function closely. 4. COPD. continue on high flow oxygen along with updrafts 5. Hypertensin. On metoprolol 50 mg 3 times a day, isosorbide 30 mg daily, hydralazine 50 mg twice a day 6. Hyperlipidemia. Lipitor 40 mg daily 7. Diabetes mellitus type 2. Levemir 25 units daily 8. Gastroesophageal esophageal reflux disease. Pantoprazole 9. Depression. Nortriptyline 25 mg daily 10. Diabetic neuropathy. Nortriptyline 25 mg daily 11. Chronic lower back pain. see's Dr Day for pain management, on [place]uff[place] 11. DVT prophylaxis. Eliquis 5 mg twice a day 12. GI prophylaxis. Pantoprazole 13. The above impression and plan of care have been discussed and directed by signing physician. Liseth Macdonald nurse practitioner acting as scribe for signing physician.
[2021-01-05] MEDS ORDERED: MAG HYDROX/AL HYDROX/SIMETH 30 ML CUP PO PRN (11:20)
[2021-01-05] MEDS ORDERED: PANTOPRAZOLE 40 MG TABLET PO STA (11:20)
[2021-01-05 11:29] LABS: Glucose,Whole Blood 190 mg/dL (75-99)
[2021-01-05 20:05] LABS: Glucose,Whole Blood 172 mg/dL (75-99)
[2021-01-05] MEDS: INSULIN ASPART (NovoLOG) 100 UNIT/ML VIAL SQ SCH (20:16)
[2021-01-05] MEDS: POTASSIUM CHLORIDE ER 10 MEQ TAB.ER.PRT PO SCH (20:17)
[2021-01-05] MEDS: MONTELUKAST 10 MG TAB PO SCH (20:17)
[2021-01-05] MEDS: INSULIN DETEMIR (LEVEMIR) 100 UNIT/ML SYR SQ SCH (20:18)
[2021-01-06 03:44] LABS: Anisocytosis Slight; HCT 32.2 % (34.0-46.0); HGB 9.2 gm/dL (11.4-16.0); Hypochromasia Marked; MCHC 28.5 g/dL (31.0-37.0); MCV 87.8 fL (80.0-100.0); Mean Platelet Volume 9.2; Microcytosis Slight; Platelet Count 388 k/uL (150-450); RBC 3.66 m/uL (3.80-5.40); RDW 19.5 % (11.5-15.5); WBC 4.7 k/uL (3.8-10.6)
[2021-01-06 04:03] LABS: Calcium 9.2 mg/dL (8.4-10.2); Potassium 5.5 mmol/L (3.5-5.1)
[2021-01-06 06:55] LABS: Glucose,Whole Blood 67 mg/dL (75-99)
[2021-01-06] MEDS: INSULIN ASPART (NovoLOG) 100 UNIT/ML VIAL SQ SCH ×4 (07:05→20:51)
[2021-01-06 07:16] LABS: Glucose,Whole Blood 93 mg/dL (75-99)
[2021-01-06] MEDS: IPRATROPIUM-ALBUTEROL 3 ML NEB INHALATION SCH ×4 (07:52→19:42)
[2021-01-06] MEDS: APIXABAN 5 MG TAB PO SCH ×2 (08:25→20:50)
[2021-01-06] MEDS: ISOSORBIDE MONONITRATE ER 30 MG TAB.ER.24H PO SCH (08:25)
[2021-01-06] MEDS: LORATADINE 10 MG TAB PO SCH (08:25)
[2021-01-06] MEDS: METOPROLOL TARTRATE 50 MG TAB PO SCH ×3 (08:25→20:51)
[2021-01-06] MEDS: FUROSEMIDE 10 MG/ML 4 ML VIAL IV SCH (08:26)
[2021-01-06] MEDS: POTASSIUM CHLORIDE ER 10 MEQ TAB.ER.PRT PO SCH ×2 (08:26→20:51)
[2021-01-06] MEDS: hydrALAZINE HCL 50 MG TAB PO SCH ×2 (08:26→20:51)
[2021-01-06] MEDS: ATORVASTATIN 40 MG TAB PO SCH (08:26)
[2021-01-06] MEDS: AMIODARONE 200 MG TAB PO SCH ×2 (08:26→20:50)
[2021-01-06] MEDS: NORTRIPTYLINE 25 MG CAP PO SCH (08:26)
--- NOTE | 2021-01-06 09:58 | PN ---
PROGRESS NOTE INTERVAL HISTORY: Mrs. Rinaldi is a 60-year-old female who presented with severe dyspnea and has atrial tachycardia with variable conduction. She is back in sinus mechanism his morning. She is feeling better. Her breathing is stable. She denies any dizziness. She denies any palpitation. She has a known history of congestive heart failure with preserved systolic function. She underwent cardiac catheterization in the past that showed no evidence of obstructive disease. She was cardioverted in the emergency room at [facility] recently because of what was reported as atrial flutter with rapid ventricular response. She is lying supine. Feeling better. Her breathing is better. She denies any dizziness. She continues to be on amiodarone 400 mg twice a day, Eliquis 5 mg twice a day, Lipitor 40 mg daily, Lasix 40 mg IV q.12 hours, isosorbide mononitrate 30 mg daily, hydralazine 50 mg twice a day, metolazone 2.5 mg once a week, metoprolol tartrate 50 mg 3 times a day. PHYSICAL EXAMINATION: VITAL SIGNS: Blood pressure running in the 140s over 80 with a heart rate in 70s. LUNGS: With decreased air exchange. HEART: Regular rate and rhythm S1, S2. No S3. No rub. ABDOMEN: Soft, obese, nontender. EXTREMITIES: Trace edema. LAB DATA: BUN and creatinine 68 and 2.1, potassium 5.5, calcium 9.2. IMPRESSION: 1. Atrial tachycardia, back in sinus mechanism. 2. Congestive heart failure with preserved systolic function. 3. History of smoking. 4. Hypertension. 5. Diabetes mellitus. 6. Worsening renal function. RECOMMENDATION: I will switch her to oral diuretics. She is off the IV Cardizem at this time. I will hold on the metolazone. Continue on the present dose of amiodarone for another week then cut it down to 200 mg twice a day. Follow her renal function closely and depending on her progress further recommendation will be made. MMODL / IJN: [id number] /
--- NOTE | 2021-01-06 10:27 | P.PN ---
Subjective Progress Note Date: 01/06/21 This is a 60-year-old female patient at the [facility] she has a past medical history of COPD, diabetes mellitus type 2, GERD, hypertension, hyperlipidemia, generalized osteoarthritis, tobacco use and dependence. Patient was recently hospitalized at [facility] in [place] and was discharged about 2-3 days ago. While she was at [facility] she had a left-sided thoracentesis and about 800 mL removed from the pleural space. She underwent cardioversion for her chronic atrial fibrillation. She was then sent home after 5 days. She was home for about a day and then presented back to the hospital yesterday with increasing shortness of breath. She was hypoxic noted to be 60% per EMS's reports she is on 5 L nasal cannula at home. Patient was placed on BiPAP upon arrival to the emergency department. She was given IV Lasix. The patient was also found to be in A. fib/A flutter with RVR and was given 15 mg IV push of Cardizem. Troponin was mildly elevated at 0.072, BUN 64, creatinine 1.75. C hest x-ray revealed bibasilar effusions as well as pulmonary vascular congestion. She was transferred to the ICU. Patient continues on high flow oxygen currently saturating 90%, blood pressure stable at 118/88 heart rate is in the 70s. She continues on amiodarone 400 mg twice a day as well as Cardizem drip. Currently receiving 40 mg IV push of Lasix as well as metolazone 2.5 mg. 01/06: Patient evaluated this morning in the intensive care unit. She is now off high flow o2 and is currently on 5L nasal cannula, saturation is 97%. She is afebrile temperature 98.5, heart rate running between 70s to 80s, blood pressure 129/81. Repeat laboratory values revealed WBC 4.7, hemoglobin 9.2, sodium 141, potassium 5.5, BUN 68, creatinine 2.11. She is down 0.7 kg from admission, she continues with furosemide 40 mg twice a day. Cardiology has transitioned her IV Cardizem to oral. Chest x-ray reveals possible pneumonia will obtain a pro- calcitonin. Objective - Vital Signs Vital signs: Vital Signs Temp 98.5 F 01/06/21 04:00 Pulse 80 01/06/21 07:00 Resp 20 01/06/21 07:00 BP 129/81 01/06/21 07:00 Pulse Ox 92 L 01/06/21 07:00 Intake & Output 01/05/21 01/06/21 01/06/21 18:59 06:59 18:59 Intake Total 311.25 250 100 Output Total 700 400 Balance -388.75 -150 100 Weight 93.7 kg Intake: Intake, IV Titration 111.25 Amount Diltiazem 125 mg In 111.25 Sodium Chloride 0.9% 100 ml @ Per Protocol IV .Q0M [facility] Rx#:[id number] Oral 200 250 100 Output: Urine 700 400 Other: Voiding Method External Catheter External Catheter # Voids 0 0 0 - Exam - Constitutional General appearance: cooperative, no distress, obese - EENT Eyes: no abnormal pupil, EOMI, PERRLA, normal appearance ENT: hearing grossly normal, normal oropharynx, no thrush - Neck Neck: no lymphadenopathy, normal ROM, no stridor, no thyromegaly - Respiratory Respiratory: bilateral: diminished, dullness, rhonchi, negative: wheezing - Cardiovascular Rhythm: irregularly irregular Heart sounds: normal: S1, S2 - Gastrointestinal General gastrointestinal: distended, no hepatomegaly, normal bowel sounds, no organomegaly, no splenomegaly, no tenderness - Neurologic Neurologic: CNII-XII intact - Musculoskeletal Musculoskeletal: generalized weakness, strength equal bilaterally - Psychiatric Psychiatric: A&O x's 3, appropriate affect, intact judgment & insight - Labs CBC & Chem 7: 01/06/21 03:00 01/06/21 03:00 Labs: Abnormal Lab Results - Last 24 Hours (Table) 01/05/21 01/05/21 01/06/21 Range/Units 11:27 20:03 03:00 RBC (3.80-5.40) m/uL Hgb (11.4-16.0) gm/dL Hct (34.0-46.0) % MCHC (31.0-37.0) g/dL RDW (11.5-15.5) % Potassium 5.5 H (3.5-5.1) mmol/L Carbon Dioxide 40 H (22-30) mmol/L BUN 68 H (7-17) mg/dL Creatinine 2.11 H (0.52-1.04) mg/dL Glucose 124 H (74-99) mg/dL POC Glucose (mg/dL) 190 H 172 H (75-99) mg/dL 01/06/21 01/06/21 Range/Units 03:00 06:54 RBC 3.66 L (3.80-5.40) m/uL Hgb 9.2 L (11.4-16.0) gm/dL Hct 32.2 L (34.0-46.0) % MCHC 28.5 L (31.0-37.0) g/dL RDW 19.5 H (11.5-15.5) % Potassium (3.5-5.1) mmol/L Carbon Dioxide (22-30) mmol/L BUN (7-17) mg/dL Creatinine (0.52-1.04) mg/dL Glucose (74-99) mg/dL POC Glucose (mg/dL) 67 L (75-99) mg/dL Assessment and Plan Plan: 1. Acute hypoxic respiratory failure secondary to acute exacerbation of diastolic heart failure. History of recent admission to [facility] status post cardioversion and left-sided thoracentesis. Continue on IV furosemide 40 mg IV push twice a day. Continue on supplemental oxygen, followed by pulmonary medicine and braid cutter. 2. Atrial tachycardia. history of recent recent cardioversion at [facility]. Continue amiodarone 400 mg twice a day, metoprolol 50 mg 3 times a day and Cardizem drip, Eliquis 5 mg twice a day for anticoagulation. IV Cardizem transitioned into oral, cardiology on consult 3. Acute kidney injury with chronic kidney disease stage III. We'll monitor kidney function closely. 4. COPD. continue on high flow oxygen along with updrafts 5. Hypertensin. On metoprolol 50 mg 3 times a day, isosorbide 30 mg daily, hydralazine 50 mg twice a day 6. Hyperlipidemia. Lipitor 40 mg daily 7. Diabetes mellitus type 2. Levemir 25 units daily 8. Gastroesophageal esophageal reflux disease. Pantoprazole 9. Depression. Nortriptyline 25 mg daily 10. Diabetic neuropathy. Nortriptyline 25 mg daily 11. Chronic lower back pain. see's Dr Day for pain management, on [place] 11. DVT prophylaxis. Eliquis 5 mg twice a day 12. GI prophylaxis. Pantoprazole 13. The above impression and plan of care have been discussed and directed by signing physician. Liseth Macdonald nurse practitioner acting as scribe for si gning physician.
--- NOTE | 2021-01-06 10:35 | P.PN ---
Subjective Progress Note Date: 01/06/21 Principal diagnosis: Shortness of breath. Progress note dated 01/05/2021. 60-year-old black female that was seen yesterday in the emergency department. The patient was recently at [facility] in [place], for about 5 days. She was discharged this past Thursday. While there, she had a left-sided thoracentesis and 800 mL was removed from the left pleural space, she had a cardioversion for her chronic atrial fibrillation. She presented to the emergency department yesterday after only being home one day, with complaints of increasing shortness of breath. Currently, she is on BiPAP, with settings of IPAP 10, EPAP 5, and 50%. We will attempt 15 they're high flow O2. She's currently on amiodarone 0.5 mg/m, and a Cardizem drip at 15 mg per hour. She is not receiving any IV fluids. She is feeling better. The lower extremity edema is improved. Her chest x-rays a bit improved as well. She has a history of COPD, diabetes mellitus, gastroesophageal reflux disease, hyperlipidemia, hypertension, DJD, diabetic retinopathy, and chronic back pain. She was to see me in the office on December 28, but she did not show up for the appointment. White count 5, hemoglobin 9.3, hematocrit 32.9, and platelet count 371,000. PT/INR normal. PTT is 54.2. Sodium 141, potassium 5.2, chlorides 98, CO2 39, anion gap 4, BUN 66, creatinine 1.76. Chest x-ray shows improvement I'm status, but she still does have bilateral left greater than right effusions. Progress note dated 01/06/2021. 60-year-old black female that was seen in the emergency department 2 days ago. She was recently at [facility] in [place], for about 5 days, and at that time, had a left-sided thoracentesis, and also had cardioversion for chronic atrial fibrillation. She came into the emergency department, complaining of shortness of breath, and we saw her down there, she was on BiPAP. Currently, she is doing much better. She is on 5 L nasal cannula. She's not receiving any IV fluids. The patient was not on the BiPAP last night. She does have a history of COPD, diabetes mellitus, gastroesophageal reflux disease, hyperlipidemia, hypertension, DJD, chronic back pain, and diabetic retinopathy. White count 4.7, hemoglobin 9.2, hematocrit 32.2, and platelet count 388,000. Sodium 141, potassium 5.5, chlorides 98, CO2 40, anion gap 3, BUN 68, creatinine 2.11. Objective - Vital Signs Vital signs: Vital Signs Temp 98.5 F 01/06/21 04:00 Pulse 78 01/06/21 08:05 Resp 10 L 01/06/21 08:00 BP 141/85 01/06/21 08:00 Pulse Ox 97 01/06/21 08:00 Intake & Output 01/05/21 01/06/21 01/06/21 18:59 06:59 18:59 Intake Total 311.25 250 100 Output Total 700 400 300 Balance -388.75 -150 -200 Weight 93.7 kg Intake: Intake, IV Titration 111.25 Amount Diltiazem 125 mg In 111.25 Sodium Chloride 0.9% 100 ml @ Per Protocol IV .Q0M [facility] Rx#:[id number] Oral 200 250 100 Output: Urine 700 400 300 Other: Voiding Method External Catheter External Catheter External Catheter # Voids 0 0 1 - Exam No acute distress, oriented 3. Currently on 5 L high flow nasal cannula. No audible wheezing, use of accessory muscles, or conversational dyspnea. HEENT examination is grossly unremarkable. Neck supple. Full range of motion. No adenopathy thyromegaly or neck vein distention. Cardiovascular examination reveals an irregular rhythm and rate. S1-S2 normal. No S3 or S4. No discernible murmur noted. Heart sounds are very distant. Heart rate 78 bpm. Lungs reveal scattered bilateral rhonchi. No wheezes or crackles. There is dullness at the bases. Breath sounds are equal bilaterally. Abdomen soft bowel sounds are heard. No masses or tenderness. Extremities are intact. No cyanosis or clubbing noted. There is 1+ pitting edema appreciated. Skin is without rash or lesion. Neurologic examination is brief but nonfocal. - Labs CBC & Chem 7: 01/06/21 03:00 01/06/21 03:00 Labs: Abnormal Lab Results - Last 24 Hours (Table) 01/05/21 01/05/21 01/06/21 Range/Units 11:27 20:03 03:00 RBC (3.80-5.40) m/uL Hgb (11.4-16.0) gm/dL Hct (34.0-46.0) % MCHC (31.0-37.0) g/dL RDW (11.5-15.5) % Potassium 5.5 H (3.5-5.1) mmol/L Carbon Dioxide 40 H (22-30) mmol/L BUN 68 H (7-17) mg/dL Creatinine 2.11 H (0.52-1.04) mg/dL Glucose 124 H (74-99) mg/dL POC Glucose (mg/dL) 190 H 172 H (75-99) mg/dL 01/06/21 01/06/21 Range/Units 03:00 06:54 RBC 3.66 L (3.80-5.40) m/uL Hgb 9.2 L (11.4-16.0) gm/dL Hct 32.2 L (34.0-46.0) % MCHC 28.5 L (31.0-37.0) g/dL RDW 19.5 H (11.5-15.5) % Potassium (3.5-5.1) mmol/L Carbon Dioxide (22-30) mmol/L BUN (7-17) mg/dL Creatinine (0.52-1.04) mg/dL Glucose (74-99) mg/dL POC Glucose (mg/dL) 67 L (75-99) mg/dL Assessment and Plan Assessment: Acute hypoxemic respiratory failure secondary to congestive heart failure exacerbation and diastolic dysfunction, currently on BiPAP. Recent admission to [facility] for 5 days, with cardioversion, and left- sided thoracentesis of 800 mL. History of acute kidney injury. History of diastolic CHF. History of mild COPD. History of sleep apnea syndrome. History of hypertension. History of hyperlipidemia. History of diabetes mellitus. Prior history of tobacco use. Diabetic neuropathy and diabetic retinopathy. History of gastroesophageal reflux disease. History of osteoarthritis. Plan: Plan dated 01/05/2021. Currently, the patient is doing better. We did transfer the patient to the intensive care unit. The patient will be switched from BiPAP over to high flow nasal cannula. She remains on amiodarone 0.5 mg/m, and Cardizem drip at 15 mg an hour. No additional recommendations are made at this time. We'll continue to diuresis her. Her lower extremity edema seems to be improved. Prognosis is guarded. Additional recommendations and suggestions are forthcoming. Plan dated 01/06/2021. Currently, the patient seems be doing better. She was on both amiodarone drip and Cardizem drip yesterday. Both have been turned down. She is on 5 L nasal cannula. She's not receiving any IV fluids. Her breathing is much improved, and she's been weaned down to 5 L nasal cannula. She did not use of BiPAP last night. Her lower extremity edema is improved. We will continue to follow make recommendations were appropriate. Prognosis is guarded. Time with Patient: Less than 30
[2021-01-06] MEDS ORDERED: FUROSEMIDE 40 MG TAB PO SCH (16:00)
[2021-01-06 16:48] LABS: Glucose,Whole Blood 129 mg/dL (75-99)
[2021-01-06] MEDS: SENNOSIDES-DOCUSATE SODIUM 1 EACH TAB PO SCH (17:36)
[2021-01-06 20:40] LABS: Glucose,Whole Blood 148 mg/dL (75-99)
[2021-01-06] MEDS: MONTELUKAST 10 MG TAB PO SCH (20:50)
[2021-01-06] MEDS: INSULIN DETEMIR (LEVEMIR) 100 UNIT/ML SYR SQ SCH (20:51)
[2021-01-07 05:15] LABS: Calcium 9.3 mg/dL (8.4-10.2); Potassium 5.4 mmol/L (3.5-5.1)
[2021-01-07] MEDS: INSULIN ASPART (NovoLOG) 100 UNIT/ML VIAL SQ SCH ×4 (07:03→21:08)
[2021-01-07 07:11] LABS: Glucose,Whole Blood 111 mg/dL (75-99)
--- NOTE | 2021-01-07 07:43 | XR ---
EXAMINATION TYPE: XR chest 1V portable DATE OF EXAM: 01/07/2021 COMPARISON: 01/05/2021 HISTORY: Shortness of breath TECHNIQUE: Single frontal view of the chest is obtained. FINDINGS: Bilateral infiltrates and pleural effusion stable. Heart is enlarged. No pneumothorax. Pos tsurgical change right shoulder. IMPRESSION: Bilateral infiltrate and pleural effusion stable.
--- NOTE | 2021-01-07 07:47 | P.PN ---
Subjective Progress Note Date: 01/07/21 60-year-old male patient presented to the ED for respiratory failure. The patient's is known to have COPD, diabetes mellitus, hypertension, hyperlipidemia, diabetic retinopathy, CHF with diastolic heart failure and severe concentric LVH with an ejection fraction of 55-60%. RV is severely enlarged. The patient has significant volume overload in the right. The patient severe pulmonary hypertension. The patient's pulmonary artery pressures around 69 mmHg. Today's hospitalization to [facility] in [facility] where a thoracentesis was done and the patient had a total of 8, subsequently re moved from the left lung. The patient is also known to have tonic atrial fibrillation with a previous cardioversion. Since he came into the hospital, the patient was initially placed on a BiPAP for respiratory support. A. fib RVR was also treated with a combination of Cardizem drip and amiodarone drip. The patient also developed an acute kidney injury. At this point in time, the patient on 5 L of oxygen by nasal cannula. The patient is on Cardizem drip and oral amiodarone 400 mg by mouth twice a day, metoprolol 50 mg by mouth 3 times a day. . The patient is on long-term and to coagulation with Eliquis 5 mg by mouth twice a day. The blood sugar is controlled with Levemir insulin 25 units along with a sinus care coverage. The chest x-rays consistent with bilateral interstitial opacities and moderate concentric pleural effusion and cardiomegaly, essentially consistent with CHF. The pro calcitonin started on admission was 1.16. On today's evaluation, the patient is on oxygen at 3 L per minute nasal cannula. Repeat chest x-ray today is showing bilateral pleural effusions and cardiomegaly. Ultrasound of the chest will be done to assess for any residual pleural effusion that may benefit from thoracentesis. The patient's urine output is in order of 30-40 mL an hour. The patient is currently on oral Lasix. Her net fluid balance is in order of -1.3 L over the past 24 hours. The electrolytes show a potassium level of 5.4. BUN is 67 with a creatinine of 1.8. Creatinine is improved compared to yesterday. Objective - Vital Signs Vital signs: Vital Signs Temp 98.5 F 01/07/21 04:00 Pulse 68 01/07/21 04:00 Resp 14 01/07/21 04:00 BP 135/85 01/07/21 04:00 Pulse Ox 98 01/07/21 04:00 Intake & Output 01/06/21 01/07/21 01/07/21 18:59 06:59 18:59 Intake Total 100 300 Output Total 1200 500 Balance -1100 -200 Weight 95.6 kg Intake: Oral 100 300 Output: Urine 1200 500 Other: Voiding Method External Catheter External Catheter # Voids 1 2 - Exam No acute distress, oriented 3. Currently on 3 L high flow nasal cannula. No audible wheezing, use of accessory muscles, or conversational dyspnea. HEENT examination is grossly unremarkable. Neck supple. Full range of motion. No adenopathy thyromegaly or neck vein distention. Cardiovascular examination reveals an irregular rhythm and rate. S1-S2 normal. No S3 or S4. No discernible murmur noted. Heart sounds are very distant. Lungs reveal scattered bilateral rhonchi. No wheezes or crackles. There is dullness at the bases. Breath sounds are equal bilaterally. Abdomen soft bowel sounds are heard. No masses or tenderness. Extremities are intact. No cyanosis or clubbing noted. There is 1+ pitting edema appreciated. Skin is without rash or lesion. Neurologic examination is brief but nonfocal. - Labs CBC & Chem 7: 01/06/21 03:00 01/07/21 04:06 Labs: Abnormal Lab Results - Last 24 Hours (Table) 01/06/21 01/06/21 01/06/21 Range/Units 03:00 16:45 20:39 Potassium (3.5-5.1) mmol/L Carbon Dioxide (22-30) mmol/L BUN (7-17) mg/dL Creatinine (0.52-1.04) mg/dL Glucose (74-99) mg/dL POC Glucose (mg/dL) 129 H 148 H (75-99) mg/dL Magnesium (1.6-2.3) mg/dL Procalcitonin 1.16 H (0.02-0.09) ng/mL 01/07/21 01/07/21 01/07/21 Range/Units 04:06 04:06 06:59 Potassium 5.4 H (3.5-5.1) mmol/L Carbon Dioxide 40 H (22-30) mmol/L BUN 67 H (7-17) mg/dL Creatinine 1.86 H (0.52-1.04) mg/dL Glucose 135 H (74-99) mg/dL POC Glucose (mg/dL) 111 H (75-99) mg/dL Magnesium 2.6 H (1.6-2.3) mg/dL Procalcitonin (0.02-0.09) ng/mL Assessment and Plan Plan: 1 Acute hypoxemic respiratory failure secondary to congestive heart failure exacerbation and diastolic dysfunction, currently on BiPAP. Recent admission to [facility] for 5 days, with cardioversion, and left-sided thoracentesis o f 800 mL. Also , the patient was hospitalized from 08/24/2020 through 08/29/2020 for acute exacerbation of diastolic CHF and later on in October 2020 for the same 2 chronic atrial fibrillation 3 chronic stage III kidney disease, with possibly a component of an acute kidney injury , creatinine is improved compared to yesterday 4 chronic diastolic heart failure, severe concentric LVH, secondary pulmonary hypertension with RV overload 5 History of mild COPD. 6 History of sleep apnea syndrome. 7 History of hypertension. 8 History of hyperlipidemia. 9 History of diabetes mellitus , retinopathy with possible nephropathy 10 Prior history of tobacco use. 11 Diabetic neuropathy and diabetic retinopathy. 12 History of gastroesophageal reflux disease. 13 History of osteoarthritis. Plan Continue oral Lasix and keep a negative fluid balance Ultrasound of the chest evaluate for pleural effusion and proceed with thoracentesis to optimize oxygenation and volume status and breathing status Continue amiodarone 400 mg by mouth twice a day and metoprolol 50 mg 3 times a day for rate control. The patient is also on long-term and to coagulation with Eliquis 5 mg by mouth daily. Hold anticoagulation for now in preparation for thoracentesis, currently bilateral as the patient has diminished breath sounds and dullness bilaterally on physical examination. This fluid is most likely a transudate consistent with CHF. Continue to follow. She may potentially get transferred out of the inte nsive care unit today. She is currently on 3 L of oxygen by nasal cannula.
[2021-01-07] MEDS: AMIODARONE 200 MG TAB PO SCH ×2 (08:10→21:08)
[2021-01-07] MEDS: ISOSORBIDE MONONITRATE ER 30 MG TAB.ER.24H PO SCH (08:10)
[2021-01-07] MEDS: METOPROLOL TARTRATE 50 MG TAB PO SCH ×3 (08:10→21:07)
[2021-01-07] MEDS: LORATADINE 10 MG TAB PO SCH (08:10)
[2021-01-07] MEDS: NORTRIPTYLINE 25 MG CAP PO SCH (08:11)
[2021-01-07] MEDS: hydrALAZINE HCL 50 MG TAB PO SCH ×2 (08:11→21:08)
[2021-01-07] MEDS: ATORVASTATIN 40 MG TAB PO SCH (08:11)
[2021-01-07] MEDS: SENNOSIDES-DOCUSATE SODIUM 1 EACH TAB PO SCH (08:11)
[2021-01-07] MEDS: BUMETANIDE 0.25 MG/ML 4 ML VIAL IVP SCH ×2 (08:18→21:08)
--- NOTE | 2021-01-07 08:49 | US ---
EXAMINATION TYPE: US chest DATE OF EXAM: 01/07/2021 COMPARISON: NONE CLINICAL HISTORY: bilateral pleural effusion - thoracentesis. Bilateral pleural effusions TECHNIQUE: Targeted ultrasound of the posterior lower bilateral hemithoraces Exam done portable in ICU EXAM MEASUREMENTS: Right Pleural Effusion pocket size: 9.5 cm Right skin surface to fluid distance: 3.4 cm Left Pleural Effusion pocket size: 8.3 cm Left skin surface to fluid distance: 2.8 cm Right side marked for possible thoracentesis outside the dept. Left side marked for possible thoracentesis outside the dept. Pulmonologists are able to review the images in the patient?s EMR. IMPRESSIONS: Bilateral pleural effusion
[2021-01-07] MEDS: APIXABAN 5 MG TAB PO SCH (08:57)
[2021-01-07] MEDS: IPRATROPIUM-ALBUTEROL 3 ML NEB INHALATION SCH ×4 (09:50→19:55)
--- NOTE | 2021-01-07 10:46 | P.PN ---
Subjective This is a pleasant 60-year-old -[place] female past medical history significant for diabetes mellitus, hypertension, hypertrophic cardiomyopathy and dyslipidemia. She is also newly diagnosed atrial fibrillation. Continues to be maintained on oral anticoagulation. She is seen and examined sitting up in bed in no acute distress. She states she is having a hard time breathing this morning. She has ongoing orthopnea, DVT and lower extremity edema. Ultrasound of the chest this morning revealed right pleural effusion pocket size of 9.5 cm and left pleural effusion pocket size of 8.3 cm. Pulmonary care team is currently holding her Eliquis with plans for thoracentesis. Blood pressure 140/90 heart rate 68 afebrile maintaining low oxygen saturation on nasal cannula. Laboratory data reviewed, sodium 142, potassium 5.4, creatinine 1.86 and magnesium 2.6. Currently maintained on amiodarone 400 mg twice a day, Eliquis 5 mg twice a day, atorvastatin 40 mg daily, hydralazine 50 mg twice a day, Imdur 30 mg daily, Lopressor 50 mg 3 times a day, daily potassium supplementation and Lasix 40 mg by mouth twice a day. 24-hr urine output was 1.7 L. GENERAL: Well-appearing, well-nourished and in no acute distress. NECK: Supple with bilateral JVD or thyromegaly. LUNGS: Bibasilar rales, no wheezes or rhonchi. Respiration equal and unlabored. HEART: Regular rate and rhythm without murmurs, rubs or gallops. S1 and S2 heard. EXTREMITIES: Normal range of motion, 1+ bilateral lower extremity pitting edema. No clubbing or cyanosis. Peripheral pulses intact. ASSESSMENT Atrial tachycardia, currently maintaining sinus mechanism Acute on chronic diastolic heart failure Hyperkalemia History of hypertrophic heart disease Hypertension Diabetes mellitus Dyslipidemia Proximal atrial fibrillation on long-term anticoagulation Chronic kidney disease PLAN Change diuretics to bumex 2 mg IV BID. Hold eliquis for possible thoracentesis. Continue to document accurate intake and output along with daily weights. Follow renal function and electrolytes in the morning. Hold daily potassium supplementation secondary to hyperkalemia. Further recommendations to follow based upon clinical course. Nurse Practitioner note has been reviewed, I agree with a documented findings and plan of care. Patient was seen and examined. Objective - Vital Signs Vital signs: Vital Signs Temp 98.6 F 01/07/21 08:00 Pulse 68 01/07/21 04:00 Resp 18 01/07/21 08:00 BP 140/90 01/07/21 08:00 Pulse Ox 91 L 01/07/21 08:12 Intake & Output 01/06/21 01/07/21 01/07/21 18:59 06:59 18:59 Intake Total 100 300 Output Total 1200 500 550 Balance -1100 -200 -550 Weight 95.6 kg Intake: Oral 100 300 Output: Urine 1200 500 550 Other: Voiding Method External Catheter External Catheter External Catheter # Voids 1 2 - Labs CBC & Chem 7: 01/06/21 03:00 01/07/21 04:06 Labs: Abnormal Lab Results - Last 24 Hours (Table) 01/06/21 01/06/21 01/06/21 Range/Units 03:00 16:45 20:39 Potassium (3.5-5.1) mmol/L Carbon Dioxide (22-30) mmol/L BUN (7-17) mg/dL Creatinine (0.52-1.04) mg/dL Glucose (74-99) mg/dL POC Glucose (mg/dL) 129 H 148 H (75-99) mg/dL Magnesium (1.6-2.3) mg/dL Procalcitonin 1.16 H (0.02-0.09) ng/mL 01/07/21 01/07/21 01/07/21 Range/Units 04:06 04:06 06:59 Potassium 5.4 H (3.5-5.1) mmol/L Carbon Dioxide 40 H (22-30) mmol/L BUN 67 H (7-17) mg/dL Creatinine 1.86 H (0.52-1.04) mg/dL Glucose 135 H (74-99) mg/dL POC Glucose (mg/dL) 111 H (75-99) mg/dL Magnesium 2.6 H (1.6-2.3) mg/dL Procalcitonin (0.02-0.09) ng/mL
[2021-01-07 11:40] LABS: Glucose,Whole Blood 93 mg/dL (75-99)
--- NOTE | 2021-01-07 14:42 | P.PN ---
Subjective Progress Note Date: 01/07/21 HISTORY OF PRESENT ILLNESS This is a 60-year-old female patient at the [facility] she has a [facility] history of COPD, diabetes mellitus type 2, GERD, hypertension, hyperlipidemia, generalized osteoarthritis, tobacco use and dependence. Patient was recently hospitalized at [facility] in [place] and was discharged about 2-3 days ago. While she was at [facility] she had a left-sided thoracentesis and about 800 mL removed from the pleural space. She underwent cardioversion for her chronic atrial fibrillation. She was then sent home after 5 days. She was home for about a day and then presented back to the hospital yesterday with increasing shortness of breath. She was hypoxic noted to be 60% per EMS's reports she is on 5 L nasal cannula at home. Patient was placed on BiPAP upon arrival to the emergency department. She was given IV Lasix. The patient was also found to be in A. fib/A flutter with RVR and was given 15 mg IV push of Cardizem. Troponin was mildly elevated at 0.072, BUN 64, creatinine 1.75. Chest x-ray revealed bibasilar effusions as well as pulmonary vascular co ngestion. She was transferred to the ICU. Patient continues on high flow oxygen currently saturating 90%, blood pressure stable at 118/88 heart rate is in the 70s. She continues on amiodarone 400 mg twice a day as well as Cardizem drip. Currently receiving 40 mg IV push of Lasix as well as metolazone 2.5 mg. 01/06: Patient evaluated this morning in the intensive care unit. She is now off high flow o2 and is currently on 5L nasal cannula, saturation is 97%. She is afebrile temperature 98.5, heart rate running between 70s to 80s, blood pressure 129/81. Repeat laboratory values revealed WBC 4.7, hemoglobin 9.2, sodium 141, potassium 5.5, BUN 68, creatinine 2.11. She is down 0.7 kg from admission, she continues with furosemide 40 mg twice a day. Cardiology has transitioned her IV Cardizem to oral. Chest x-ray reveals possible pneumonia will obtain a pro- calcitonin. 01/07: Patient remains in the intensive care unit. She is there as an overflow for the cardiac stepdown unit. She has been off BiPAP since yesterday afternoon. Patient complains of a dry cough and chills. She states her appetite comes and goes. Cardizem drip has been discontinued and patient has been switched from IV Lasix to Bumex IV. Chest x-ray reveals bilateral infiltrate and pleural effusion stable. Chest ultrasound revealed right pleural effusion pocket size of 9.5 cm and left pleural effusion pocket size of 8.3 cm. pulmonary medicine is planning for thoracentesis today and eliquis is on hold. Sodium 142, potassium 5.4, BUN 67, creatinine 1.86 and magnesium 2.6. Blood sugars are running between 100 1148. Patient has been afebrile, heart rate 72, blood pressure 145/86, pulse ox 93% on 4 L nasal cannula. library monitor is sinus rhythm. REVIEW OF SYSTEMS Constitutional: No fever, reports chills, no night sweats. No weight change. No weakness, fatigue or lethargy. No daytime sleepiness. EENT: No headache. No blurred vision or double vision, no loss of vision. No loss of Hearing, no ringing in the ears, no dizziness. No nasal drainage or congestion. No epistaxis. No sore throat. Lungs: Reports shortness of breath, cough, no sputum production. No wheezing. Cardiovascular: No chest pain, no lower extremity edema. No palpitations. No paroxysmal nocturnal dyspnea. No orthopnea. No lightheadedness or dizziness. No syncopal episodes. Abdominal: No abdominal pain. No nausea, vomiting. No diarrhea. No constipation. No bloody or tarry stools. Reports loss of appetite. Genitourinary: No dysuria, increased frequency, urgency. No urinary retention. Musculoskeletal: No myalgias. No muscle weakness, no gait dysfunction, no frequent falls. No back pain. No neck pain. Integumentary: No wounds, no lesions. No rash or pruritus. No unusual bruising. No change in hair or nails. Neurologic: No aphasia. No facial droop. No change in mentation. No head injury. No headache. No paralysis. No paresthesia. Psychiatric: No depression. No anxiety. No mood swings. Endocrine: No abnormal blood sugars. PHYSICAL EXAMINATION Gen: This is a 60-year-old black female, resting in the ICU bed and appears to be comfortable and in no acute distress. No respiratory distress is noted. HEENT: Head is atraumatic, normocephalic. Pupils equal, round. Sclerae is anicteric. NECK: Supple. No JVD. No lymphadenopathy. No thyromegaly. LUNGS: Diminished bilateral bases. No intercostal retractions. No accessory muscle usage. HEART: Regular rate and rhythm. No murmur. ABDOMEN: Soft. Bowel sounds are present. No masses. No tenderness. EXTREMITIES: 1+ bilateral pedal edema. No calf tenderness. NEUROLOGICAL: Patient is awake, alert and oriented x3. Cranial nerves 2 through 12 are grossly intact. ASSESSMENT AND PLAN 1. Acute hypoxic respiratory failure secondary to acute on chronic diastolic heart failure and bilateral pleural effusions. History of recent admission to [facility] status post cardioversion and left-sided thoracentesis. IV furosemide changed to Bumex 2 mg IV push twice daily. Continue on supplemental oxygen, followed by pulmonary medicine and food service helper. Chest is marked for thoracentesis. 2. Atrial tachycardia. history of recent recent cardioversion at [facility]. Continue amiodarone 400 mg twice a day, metoprolol 50 mg 3 times a day, Eliquis 5 mg twice a day for anticoagulation. Cardiology consult appreciated. 3. Acute kidney injury with chronic kidney disease stage III. We'll monitor kidney function closely. 4. COPD. continue on high flow oxygen along with updrafts 5. Hypertensin. On metoprolol 50 mg 3 times a day, isosorbide 30 mg daily, hydralazine 50 mg twice a day 6. Hyperlipidemia. Lipitor 40 mg daily 7. Diabetes mellitus type 2. Levemir 25 units daily, NovoLog scale before meals and at bedtime. 8. Gastroesophageal esophageal reflux disease. Pantoprazole 9. Recurrent Depression. Nortriptyline 25 mg daily 10. Diabetic neuropathy. Nortriptyline 25 mg daily 11. Chronic lower back pain. see's Dr Day for pain management, on [place] 11. DVT prophylaxis. Eliquis 5 mg twice a day 12. GI prophylaxis. Pantoprazole DISCHARGE PLAN Home with homecare Impression and plan of care have been directed as dictated by the signing physician. Kathe North nurse practitioner acting as scribe for signing physician. Objective - Vital Signs Vital signs: Vital Signs Temp 98.6 F 01/07/21 08:00 Pulse 68 01/07/21 04:00 Resp 18 01/07/21 08:00 BP 140/90 01/07/21 08:00 Pulse Ox 91 L 01/07/21 08:12 Intake & Output 01/06/21 01/07/21 01/07/21 18:59 06:59 18:59 Intake Total 100 300 Output Total 1200 500 550 Balance -1100 -200 -550 Weight 95.6 kg Intake: Oral 100 300 Output: Urine 1200 500 550 Other: Voiding Method External Catheter External Catheter External Catheter # Voids 1 2 - Labs CBC & Chem 7: 01/06/21 03:00 01/07/21 04:06 Labs: Abnormal Lab Results - Last 24 Hours (Table) 01/06/21 01/06/21 01/06/21 Range/Units 03:00 16:45 20:39 Potassium (3.5-5.1) mmol/L Carbon Dioxide (22-30) mmol/L BUN (7-17) mg/dL Creatinine (0.52-1.04) mg/dL Glucose (74-99) mg/dL POC Glucose (mg/dL) 129 H 148 H (75-99) mg/dL Magnesium (1.6-2.3) mg/dL Procalcitonin 1.16 H (0.02-0.09) ng/mL 01/07/21 01/07/21 01/07/21 Range/Units 04:06 04:06 06:59 Potassium 5.4 H (3.5-5.1) mmol/L Carbon Dioxide 40 H (22-30) mmol/L BUN 67 H (7-17) mg/dL Creatinine 1.86 H (0.52-1.04) mg/dL Glucose 135 H (74-99) mg/dL POC Glucose (mg/dL) 111 H (75-99) mg/dL Magnesium 2.6 H (1.6-2.3) mg/dL Procalcitonin (0.02-0.09) ng/mL
--- NOTE | 2021-01-07 16:11 | P.PCN ---
Date of Procedure: 01/07/21 Preoperative Diagnosis: Right-sided pleural effusion Postoperative Diagnosis: Right-sided pleural effusion Procedure(s) Performed: Thoracentesis Anesthesia: local Surgeon: Nancy Aguilar Estimated Blood Loss (ml): 0 Pathology: other Condition: stable Disposition: ICU Operative Findings: A time out was performed and the chest x-ray was reviewed, the appropriate side was confirmed and marked. My hands were washed immediately prior to the procedure. I wore a surgical cap, mask with protective eyewear, sterile gown and sterile gloves throughout the procedure. The patient was prepped and draped in a sterile manner using chlorhexidine scrub after the appropriate level was perc ussed and confirmed by ultrasound. 1% lidocaine was used to anesthesize the skin, subcutaneous tissue, superior aspect of the rib periosteum and parietal pleura. A finder needle was then introduced over the superior aspect of the rib to locate the pleural fluid; 2colored fluid was aspirated at a depth of approximately 2 cm. A 10-blade scalpel was used to cristóbal the skin at the insertion site. The [id number]-[id number] needle was then introduced through the skin incision into the pleural space using negative aspiration pressure and the red colometric indicator to confirm appropriate positioning of the needle. The thoracentesis catheter was then threaded without difficulty. 900 ml of turbid colored fluid was removed without difficulty. The catheter was then removed. No immediate complications were noted during the procedure. A post-procedure chest x-ray is pending at the time of this note. The fluid will be sent for studies. Estimated blood loss is 0cc
[2021-01-07 16:41] LABS: Glucose,Whole Blood 111 mg/dL (75-99)
--- NOTE | 2021-01-07 16:45 | XR ---
EXAMINATION TYPE: XR chest 1V portable DATE OF EXAM: 01/07/2021 COMPARISON: Today HISTORY: Thoracentesis TECHNIQUE: Single view FINDINGS: Heart is enlarged. There is blunting of the costophrenic angles bilaterally. There is opaci fication of left lower hemithorax. There is some pulmonary vascular congestion. IMPRESSION: Bilateral pleural effusions. Pleural fluid on the right side reduced compared to exam thi s morning before the thoracentesis. Congestive heart failure. No change in large pleural fluid on the left side. No pneumothorax.
[2021-01-07] MEDS: PIPERACILLIN-TAZOBACTAM 3.375 GM in SODIUM CHLORIDE 0.9% 100 ML IVPB SCH ×2 (16:51→23:34)
[2021-01-07 19:38] LABS: Appearance,BF Hazy; Nucleated Cells, Body Fluid 180 /uL; RBC, Body Fluid 435 /uL
[2021-01-07 19:41] LABS: Mononuclear WBC,Body Fluid 66 %; Polynuclear WBC,Body Fluid 34 %; Total Cells Counted,Body Fluid 100
[2021-01-07 20:10] LABS: Glucose,Whole Blood 235 mg/dL (75-99)
[2021-01-07] MEDS: MONTELUKAST 10 MG TAB PO SCH (21:08)
[2021-01-07] MEDS: INSULIN DETEMIR (LEVEMIR) 100 UNIT/ML SYR SQ SCH (21:08)
[2021-01-08 03:19] LABS: Glucose, BF Source Pleural Fluid; Glucose, Body Fluid 101 mg/dL; LDH, Body Fluid Source Pleural Fluid
[2021-01-08 06:08] LABS: Glucose,Whole Blood 114 mg/dL (75-99)
[2021-01-08] MEDS: INSULIN ASPART (NovoLOG) 100 UNIT/ML VIAL SQ SCH ×4 (06:27→21:28)
[2021-01-08] MEDS: IPRATROPIUM-ALBUTEROL 3 ML NEB INHALATION SCH ×4 (07:48→19:45)
[2021-01-08] MEDS: PIPERACILLIN-TAZOBACTAM 3.375 GM in SODIUM CHLORIDE 0.9% 100 ML IVPB SCH ×3 (09:10→22:34)
[2021-01-08] MEDS: ATORVASTATIN 40 MG TAB PO SCH (09:11)
[2021-01-08] MEDS: ISOSORBIDE MONONITRATE ER 30 MG TAB.ER.24H PO SCH (09:11)
[2021-01-08] MEDS: LORATADINE 10 MG TAB PO SCH (09:11)
[2021-01-08] MEDS: hydrALAZINE HCL 50 MG TAB PO SCH ×2 (09:11→21:28)
[2021-01-08] MEDS: SENNOSIDES-DOCUSATE SODIUM 1 EACH TAB PO SCH (09:12)
[2021-01-08] MEDS: AMIODARONE 200 MG TAB PO SCH ×2 (09:12→21:28)
[2021-01-08] MEDS: METOPROLOL TARTRATE 50 MG TAB PO SCH ×3 (09:12→21:28)
[2021-01-08 09:47] LABS: Calcium 9.5 mg/dL (8.4-10.2); Potassium 5.4 mmol/L (3.5-5.1)
[2021-01-08] MEDS: NORTRIPTYLINE 25 MG CAP PO SCH (10:14)
[2021-01-08] MEDS: BUMETANIDE 0.25 MG/ML 4 ML VIAL IVP SCH ×2 (10:14→21:29)
--- NOTE | 2021-01-08 10:28 | P.PN ---
Subjective Progress Note Date: 01/08/21 60-year-old male patient presented to the ED for respiratory failure. The patient's is known to have COPD, diabetes mellitus, hypertension, hyperlipidemia, diabetic retinopathy, CHF with diastolic heart failure and severe concentric LVH with an ejection fraction of 55-60%. RV is severely enlarged. The patient has significant volume overload in the right. The patient severe pulmonary hypertension. The patient's pulmonary artery pressures around 69 mmHg. Today's hospitalization to [facility] in [facility] where a thoracentesis was done and the patient had a total of 8, subsequently re moved from the left lung. The patient is also known to have tonic atrial fibrillation with a previous cardioversion. Since he came into the hospital, the patient was initially placed on a BiPAP for respiratory support. A. fib RVR was also treated with a combination of Cardizem drip and amiodarone drip. The patient also developed an acute kidney injury. At this point in time, the patient on 5 L of oxygen by nasal cannula. The patient is on Cardizem drip and oral amiodarone 400 mg by mouth twice a day, metoprolol 50 mg by mouth 3 times a day. . The patient is on long-term and to coagulation with Eliquis 5 mg by mouth twice a day. The blood sugar is controlled with Levemir insulin 25 units along with a sinus care coverage. The chest x-rays consistent with bilateral interstitial opacities and moderate concentric pleural effusion and cardiomegaly, essentially consistent with CHF. The pro calcitonin started on admission was 1.16. On today's evaluation, the patient is on oxygen at 3 L per minute nasal cannula. Repeat chest x-ray today is showing bilateral pleural effusions and cardiomegaly. Ultrasound of the chest will be done to assess for any residual pleural effusion that may benefit from thoracentesis. The patient's urine output is in order of 30-40 mL an hour. The patient is currently on oral Lasix. Her net fluid balance is in order of -1.3 L over the past 24 hours. The electrolytes show a potassium level of 5.4. BUN is 67 with a creatinine of 1.8. Creatinine is improved compared to yesterday. On today's evaluation of 01/08/2021 the patient is being seen in follow-up in the telemetry unit. She got chest out of the intensive care unit yesterday. Note that I performed a thoracentesis of the right lung yesterday without a total of 950 mL of fluid was removed and the fluid was looking a transudate with an LDH level and the fluid of 124 and protein was 2.0. Fluid cytology still pending for now. Clinically the patient is feeling better. She is on oxygen and currently she is on 3 L with a pulse ox of 94%. Renal function continues to be impaired with a creatinine of 2.01, slightly worse compared to yesterday. Potassium is at 5.4. Serum bicarbonate is 40. The patient diastolic heart failure with bilateral pleural effusion. Repeat chest x-ray showed residual pleural effusion on the left. She is currently on Bumex 2 mg IV to 12 hours. She is also on Eliquis which is currently on hold in preparation for another thoracentesis of the left. She has lost approximately 4 kg over the past Objective - Vital Signs Vital signs: Vital Signs Temp 97.9 F 01/08/21 08:00 Pulse 80 01/08/21 08:04 Resp 16 01/08/21 08:00 BP 130/70 01/08/21 08:00 Pulse Ox 94 L 01/08/21 08:00 Intake & Output 01/07/21 01/08/21 01/08/21 18:59 06:59 18:59 Intake Total 240 Output Total 2100 960 Balance -2100 -960 240 Weight 90 kg Intake: Oral 240 Output: Drainage 900 Right Back 900 Urine 1200 960 Other: Voiding Method External Catheter External Catheter # Voids 1 1 - Exam No acute distress, oriented 3. Currently on 3 L high flow nasal cannula. No audible wheezing, use of accessory muscles, or conversational dyspnea. HEENT examination is grossly unremarkable. Neck supple. Full range of motion. No adenopathy thyromegaly or neck vein distention. Cardiovascular examination reveals an irregular rhythm and rate. S1-S2 normal. No S3 or S4. No discernible murmur noted. Heart sounds are very distant. Lungs reveal scattered bilateral rhonchi. No wheezes or crackles. . Breath sounds improved and the right lung. Breath sounds are diminished on the left with dullness to percussion. Abdomen soft bowel sounds are heard. No masses or tenderness. Extremities are intact. No cyanosis or clubbing noted. There is trace edema appreciated. Skin is without rash or lesion. Neurologic examination is brief but nonfocal. - Labs CBC & Chem 7: 01/06/21 03:00 01/08/21 08:48 Labs: Abnormal Lab Results - Last 24 Hours (Table) 01/07/21 01/07/21 01/08/21 Range/Units 16:40 20:09 06:07 Potassium (3.5-5.1) mmol/L Chloride (98-107) mmol/L Carbon Dioxide (22-30) mmol/L BUN (7-17) mg/dL Creatinine (0.52-1.04) mg/dL Glucose (74-99) mg/dL POC Glucose (mg/dL) 111 H 235 H 114 H (75-99) mg/dL 01/08/21 Range/Units 08:48 Potassium 5.4 H (3.5-5.1) mmol/L Chloride 95 L (98-107) mmol/L Carbon Dioxide 40 H (22-30) mmol/L BUN 69 H (7-17) mg/dL Creatinine 2.01 H (0.52-1.04) mg/dL Glucose 132 H (74-99) mg/dL POC Glucose (mg/dL) (75-99) mg/dL Microbiology - Last 24 Hours (Table) 01/07/21 16:00 Gram Stain - Preliminary Pleural Fluid Body Fluid Culture - Preliminary 01/07/21 16:00 Anaerobic Culture - Preliminary Pleural Fluid Assessment and Plan Plan: 1 Acute hypoxemic respiratory failure secondary to congestive heart failure exacerbation and diastolic dysfunction, currently on BiPAP. Recent admission to [facility] for 5 days, with cardioversion, and left-sided thoracentesis of 800 mL. Also , the patient was hospitalized from 08/24/2020 through 08/29/2020 for acute exacerbation of diastolic CHF and later on in October 2020 for the same. On yesterday's evaluation, I performed a thoracentesis on the right and a total of 950 mL of transudative fluid was removed. The patient has residual effusion on the left which will be drained today. The patient remains off Eliquis. The patient remains on oxygen at 2 L per minute nasal cannula. 2 chronic atrial fibrillation 3 chronic stage III kidney disease, with possibly a component of an acute kidney injury , creatinine is stable at 2.0 4 chronic diastolic heart failure, severe concentric LVH, secondary pulmonary hypertension with RV overload 5 History of mild COPD. 6 History of sleep apnea syndrome. 7 History of hypertension. 8 History of hyperlipidemia. 9 History of diabetes mellitus , retinopathy with possible nephropathy 10 Prior history of tobacco use. 11 Diabetic neuropathy and diabetic retinopathy. 12 History of gastroesophageal reflux disease. 13 History of osteoarthritis. Plan Continue IV Bumex Keep the Eliquis on hold and may restarted after the thoracentesis Right-sided thoracentesis was done yesterday with a total of 950 mL removed. Left-sided thoracentesis will be done today. Continue amiodarone 400 mg by mouth twice a day and metoprolol 50 mg 3 times a day for rate control. The patient is also on long-term and to coagulation with Eliquis 5 mg by mouth daily. The anticoagulation restarted after completing the thoracentesis. She is currently on 3 L of oxygen by nasal cannula.
--- NOTE | 2021-01-08 10:36 | P.PCN ---
Date of Procedure: 01/08/21 Operative Findings: Date of Procedure: 01/08/21 Preoperative Diagnosis: Left-sided pleural effusion Postoperative Diagnosis: Left -sided pleural effusion Procedure(s) Performed: Thoracentesis Anesthesia: local Surgeon: Nancy Aguilar Estimated Blood Loss (ml): 0 Pathology: other Condition: stable Disposition: ICU Operative Findings: A time out was performed and the chest x-ray was reviewed, the appropriate side was confirmed and marked. My hands were washed immediately prior to the procedure. I wore a surgical cap, mask with protective eyewear, sterile gown and sterile gloves throughout the procedure. The patient was prepped and draped in a sterile manner using chlorhexidine scrub after the appropriate level was percussed and confirmed by ultrasound. 1% lidocaine was used to anesthesize the skin, subcutaneous tissue, superior aspect of the rib periosteum and parietal pleura. A finder needle was then introduced over the superior aspect of the rib to locate the pleural fluid; 2colored fluid was aspirated at a depth of approximately 2 cm. A 10-blade scalpel was used to cristóbal the skin at the insertion site. The [id number]-a-Qsuvmvdy needle was then introduced through the skin incision into the pleural space using negative aspiration pressure and the red colometric indicator to confirm appropriate positioning of the needle. The thoracentesis catheter was then threaded without difficulty. 650 ml of turbid colored fluid was removed without difficulty. The catheter was then removed. No immediate complications were noted during the procedure. A post-procedure chest x-ray is pending at the time of this note. The fluid will not be sent for studies. Estimated blood loss is 0cc
--- NOTE | 2021-01-08 11:01 | XR ---
EXAMINATION TYPE: XR chest 1V portable DATE OF EXAM: 01/08/2021 HISTORY: left sided thoracentesis. COMPARISON: 01/07/2021 TECHNIQUE: Single view of the chest is submitted. FINDINGS: Significant diminution in left-sided pleural effusion status post thoracentesis. No evidence for. Bas ilar infiltrates or atelectasis noted. The heart is stable. Hilar and mediastinal structures are within normal limits. Degenerative changes are seen of the dorsal spine. IMPRESSION: 1. Significant diminution in left-sided pleural effusion status post thoracentesis. No evidence for. Basilar infiltrates or atelectasis noted.
[2021-01-08 11:37] LABS: Glucose,Whole Blood 113 mg/dL (75-99)
--- NOTE | 2021-01-08 12:12 | P.PN ---
Subjective Progress Note Date: 01/08/21 HISTORY OF PRESENT ILLNESS This is a 60-year-old female patient at the [facility] she has a past [facility] history of COPD, diabetes mellitus type 2, GERD, hypertension, hyperlipidemia, generalized osteoarthritis, tobacco use and dependence. Patient was recently hospitalized at [facility] in [place] and was discharged about 2-3 days ago. While she was at [facility] she had a left-sided thoracentesis and about 800 mL removed from the pleural space. She underwent cardioversion for her chronic atrial fibrillation. She was then sent home after 5 days. She was home for about a day and then presented back to the hospital yesterday with increasing shortness of breath. She was hypoxic noted to be 60% per EMS's reports she is on 5 L nasal cannula at home. Patient was placed on BiPAP upon arrival to the emergency department. She was given IV Lasix. The patient was also found to be in A. fib/A flutter with RVR and was given 15 mg IV push of Cardizem. Troponin was mildly elevated at 0.072, BUN 64, creatinine 1.75. Chest x-ray revealed bibasilar effusions as well as pulmonary vascular co ngestion. She was transferred to the ICU. Patient continues on high flow oxygen currently saturating 90%, blood pressure stable at 118/88 heart rate is in the 70s. She continues on amiodarone 400 mg twice a day as well as Cardizem drip. Currently receiving 40 mg IV push of Lasix as well as metolazone 2.5 mg. 01/06: Patient evaluated this morning in the intensive care unit. She is now off high flow o2 and is currently on 5L nasal cannula, saturation is 97%. She is afebrile temperature 98.5, heart rate running between 70s to 80s, blood pressure 129/81. Repeat laboratory values revealed WBC 4.7, hemoglobin 9.2, sodium 141, potassium 5.5, BUN 68, creatinine 2.11. She is down 0.7 kg from admission, she continues with furosemide 40 mg twice a day. Cardiology has transitioned her IV Cardizem to oral. Chest x-ray reveals possible pneumonia will obtain a pro- calcitonin. 01/07: Patient remains in the intensive care unit. She is there as an overflow for the cardiac stepdown unit. She has been off BiPAP since yesterday afternoon. Patient complains of a dry cough and chills. She states her appetite comes and goes. Cardizem drip has been discontinued and patient has been switched from IV Lasix to Bumex IV. Chest x-ray reveals bilateral infiltrate and pleural effusion stable. Chest ultrasound revealed right pleural effusion pocket size of 9.5 cm and left pleural effusion pocket size of 8.3 cm. pulmonary medicine is planning for thoracentesis today and eliquis is on hold. Sodium 142, potassium 5.4, BUN 67, creatinine 1.86 and magnesium 2.6. Blood sugars are running between 100 1148. Patient has been afebrile, heart rate 72, blood pressure 145/86, pulse ox 93% on [address] recording monitor is sinus rhythm. 01/08: Patient is seen today on the cardiac stepdown unit. Yesterday, patient underwent right-sided thoracentesis with removal of 900 MLS of turbid colored fluid. This morning, patient underwent a left-sided thoracentesis with removal of 650 ML's of turbid colored fluid by Dr. Aguilar. Cytology report is pending. Patient states the coughing episodes or loss and she is not having any shortness of breath. She states her legs feel heavy and PT and OT consults will be added. Patient normally walks with a walker. Patient has been afebrile, heart rate in the 70s and 80s, blood pressure 130/70, pulse ox 94% on 3 L nasal cannula Repeat blood work reveals sodium 140, potassium 5.4, chloride 95, CO2 40, BUN 69 creatinine 2.01. Blood sugars are running between 113 and 235. Repeat chest x-ray performed yesterday reveals bilateral pleural effusions. Pleural fluid on the right side reduced compared to exam in the morning. Heart failure. No change in large pleural fluid on the left side area and Repeat chest x-ray this morning reveals significant diminution in left-sided pleural effusion status post thoracentesis. Basal infiltrates or atelectasis noted. Plan is to continue IV Bumex, eliquis can be resumed REVIEW OF SYSTEMS Constitutional: No fever, reports chills, no night sweats. No weight change. No weakness, fatigue or lethargy. No daytime sleepiness. EENT: No headache. No blurred vision or double vision, no loss of vision. No loss of Hearing, no ringing in the ears, no dizziness. No nasal drainage or congestion. No epistaxis. No sore throat. Lungs:Denies shortness of breath, cough, no sputum production. No wheezing. Cardiovascular: No chest pain, no lower extremity edema. No palpitations. No paroxysmal nocturnal dyspnea. No orthopnea. No lightheadedness or dizziness. No syncopal episodes. Abdominal: No abdominal pain. No nausea, vomiting. No diarrhea. No constipation. No bloody or tarry stools. Reports loss of appetite. Genitourinary: No dysuria, increased frequency, urgency. No urinary retention. Musculoskeletal: No myalgias. No muscle weakness, no gait dysfunction, no frequent falls. No back pain. No neck pain. Integumentary: No wounds, no lesions. No rash or pruritus. No unusual bruis ing. No change in hair or nails. Neurologic: No aphasia. No facial droop. No change in mentation. No head injury. No headache. No paralysis. No paresthesia. Psychiatric: No depression. No anxiety. No mood swings. Endocrine: No abnormal blood sugars. PHYSICAL EXAMINATION Gen: This is a 60-year-old black female, resting in the ICU bed and appears to be comfortable and in no acute distress. No respiratory distress is noted. HEENT: Head is atraumatic, normocephalic. Pupils equal, round. Sclerae is anicteric. NECK: Supple. No JVD. No lymphadenopathy. No thyromegaly. LUNGS: Diminished bilateral bases. Scattered rhonchi. o intercostal retractions. No accessory muscle usage. HEART: Regular rate and rhythm. No murmur. ABDOMEN: Soft. Bowel sounds are present. No masses. No tenderness. EXTREMITIES: trace bilateral pedal edema. No calf tenderness. NEUROLOGICAL: Patient is awake, alert and oriented x3. Cranial nerves 2 through 12 are grossly intact. ASSESSMENT AND PLAN 1. Acute hypoxic respiratory failure secondary to acute on chronic diastolic heart failure and bilateral pleural effusions. History of recent admission to [facility] status post cardioversion and left-sided thoracentesis. Continue Bumex 2 mg IV push twice daily. Continue on supplemental oxygen, followed [facility] medicine and copy coordinator. Patient is status post bilateral thoracentesis. 2. Atrial tachycardia. history of recent recent cardioversion at [facility]. Continue amiodarone 400 mg twice a day, metoprolol 50 mg 3 times a day, Eliquis 5 mg twice a day for anticoagulation--to be resumed once cleared by pulmonary. Cardiology consult appreciated. 3. Acute kidney injury with chronic kidney disease stage III. We'll monitor kidney function closely. 4. COPD. continue on high flow oxygen along with updrafts 5. Hypertensin. On metoprolol 50 mg 3 times a day, isosorbide 30 mg daily, hyd ralazine 50 mg twice a day 6. Hyperlipidemia. Lipitor 40 mg daily 7. Diabetes mellitus type 2. Levemir 25 units daily, NovoLog scale before meals and at bedtime. 8. Gastroesophageal esophageal reflux disease. Pantoprazole 9. Recurrent Depression. Nortriptyline 25 mg daily 10. Diabetic neuropathy. Nortriptyline 25 mg daily 11. Chronic lower back pain. see's Dr Day for pain management, on [place] 11. DVT prophylaxis. Eliquis 5 mg twice a day 12. GI prophylaxis. Pantoprazole DISCHARGE PLAN Home with homecare Impression and plan of care have been directed as dictated by the signing physician. Kathe North nurse practitioner acting as scribe for signing physician. Objective - Vital Signs Vital signs: Vital Signs Temp 97.9 F 01/08/21 08:00 Pulse 80 01/08/21 08:04 Resp 16 01/08/21 08:00 BP 130/70 01/08/21 08:00 Pulse Ox 94 L 01/08/21 08:00 Intake & Output 01/07/21 01/08/21 01/08/21 18:59 06:59 18:59 Intake Total 240 Output Total 2100 960 Balance -2100 -960 240 Weight 90 kg Intake: Oral 240 Output: Drainage 900 Right Back 900 Urine 1200 960 Other: Voiding Method External Catheter # Voids 1 1 - Labs CBC & Chem 7: 01/06/21 03:00 01/08/21 08:48 Labs: Abnormal Lab Results - Last 24 Hours (Table) 01/07/21 01/07/21 01/08/21 Range/Units 16:40 20:09 06:07 POC Glucose (mg/dL) 111 H 235 H 114 H (75-99) mg/dL Microbiology - Last 24 Hours (Table) 01/07/21 16:00 Gram Stain - Preliminary Pleural Fluid Body Fluid Culture - Preliminary 01/07/21 16:00 Anaerobic Culture - Preliminary Pleural Fluid
--- NOTE | 2021-01-08 13:02 | P.PN ---
Subjective This is a pleasant 60-year-old -[place] female past medical history significant for diabetes mellitus, hypertension, hypertrophic cardiomyopathy and dyslipidemia. She does not follow with a pole truck driver at this time. She does have a follow up with a pole truck driver at [facility] in [place] but does not recall the physician. She is also newly diagnosed atrial fibrillation. Continues to be maintained on oral anticoagulation. She is seen and examined sitting up in bed in no acute distress. She is feeling better, denies shortness of breath, chest pain. lightheadedness, dizziness, palpitations. Her Eliquis was on hold yesterday. She underwent right sided thoracentesis with pulmonary with 900mL removed. Plan for Left sided thoracentesis today. Blood pressure 135/72 heart rate 72 afebrile 90% 3 L nasal cannula. Sodium 140, potassium 5.4, BUN 69, serum creatinine 2.01. Telemetry reviewed patient maintaining sinus mechanism heart rate 70s. Currently maintained on amiodarone 400 mg twice a day, Eliquis 5 mg twice a day (on hold currently), atorvastatin 40 mg daily, hydralazine 50 mg twice a day, Imdur 30 mg daily, Lopressor 50 mg 3 times a day, IV Bumex 2mg BID. 2.1L urine output over the past 24 hours. Echocardiogram 10/2020 revealed EF 55-60%, severe concentric left ventricular hypertrophy, paradoxical motion of the right ventricular septum consistent with right ventricular overload and/or elevated right ventricular end diastolic pressure moderate tricuspid regurgitation, severe pulmonary hypertension with RVSP 69mmHg GENERAL: Well-appearing, well-nourished and in no acute distress. NECK: Supple with bilateral JVD or thyromegaly. LUNGS: Diminished in the bases. no wheezes or rhonchi. Respiration equal and unlabored. HEART: Regular rate and rhythm, systolic murmur noted. S1 and S2 heard. SKIN: right back thoracentesis site covered with bandaid no hematoma or pain noted EXTREMITIES: Normal range of motion,1+ bilateral lower extremity pitting edema. No clubbing or cyanosis. Peripheral pulses intact. ASSESSMENT Atrial tachycardia, currently maintaining sinus mechanism Acute on chronic diastolic heart failure Hyperkalemia History of hypertrophic heart disease Hypertension Diabetes mellitus Dyslipidemia Proximal atrial fibrillation on long-term anticoagulation Chronic kidney disease Severe concentric left ventricular hypertrophy s/p right sided thoracentesis 7/26 PLAN Reviewing patient's Echocardiogram and EKG patient with low voltage and severe LVH seen on echo, there is concern for cardiac amyloidosis, we will continue to follow patient as an outpatient for further workup Continue IV Bumex 2mg BID Hold eliquis for possible thoracentesis Left side today. Continue to document accurate intake and output along with daily weights. Follow renal function and electrolytes in the morning. Continue to hold daily potassium supplementation secondary to hyperkalemia. Further recommendations to follow based upon clinical course. As an outpatient patient will follow up in the office with Dr. Song Nurse Practitioner note has been reviewed, I agree with a documented findings and plan of care. Patient was seen and examined. Objective - Vital Signs Vital signs: Vital Signs Temp 98.4 F 01/07/21 20:00 Pulse 80 01/08/21 08:04 Resp 18 01/08/21 04:00 BP 135/69 01/08/21 04:00 Pulse Ox 96 01/08/21 04:00 Intake & Output 01/07/21 01/08/21 01/08/21 18:59 06:59 18:59 Output Total 2100 960 Balance -2100 -960 Weight 90 kg Output: Drainage 900 Right Back 900 Urine 1200 960 Other: Voiding Method External Catheter # Voids 1 1 - Labs CBC & Chem 7: 01/06/21 03:00 01/08/21 08:48 Labs: Abnormal Lab Results - Last 24 Hours (Table) 01/07/21 01/07/21 01/08/21 Range/Units 16:40 20:09 06:07 POC Glucose (mg/dL) 111 H 235 H 114 H (75-99) mg/dL Microbiology - Last 24 Hours (Table) 01/07/21 16:00 Gram Stain - Preliminary Pleural Fluid Body Fluid Culture - Preliminary 01/07/21 16:00 Anaerobic Culture - Preliminary Pleural Fluid
[2021-01-08 16:40] LABS: Glucose,Whole Blood 140 mg/dL (75-99)
[2021-01-08 20:12] LABS: Glucose,Whole Blood 156 mg/dL (75-99)
[2021-01-08] MEDS: MONTELUKAST 10 MG TAB PO SCH (21:28)
[2021-01-08] MEDS: INSULIN DETEMIR (LEVEMIR) 100 UNIT/ML SYR SQ SCH (21:29)
[2021-01-08] MEDS: APIXABAN 5 MG TAB PO SCH (21:32)
[2021-01-09 06:13] LABS: Glucose,Whole Blood 71 mg/dL (75-99)
[2021-01-09] MEDS: INSULIN ASPART (NovoLOG) 100 UNIT/ML VIAL SQ SCH ×4 (06:30→20:57)
[2021-01-09] MEDS: IPRATROPIUM-ALBUTEROL 3 ML NEB INHALATION SCH ×4 (08:19→20:53)
[2021-01-09] MEDS: PIPERACILLIN-TAZOBACTAM 3.375 GM in SODIUM CHLORIDE 0.9% 100 ML IVPB SCH ×3 (08:58→23:26)
[2021-01-09] MEDS: METOPROLOL TARTRATE 50 MG TAB PO SCH ×3 (08:59→20:57)
[2021-01-09] MEDS: BUMETANIDE 0.25 MG/ML 4 ML VIAL IVP SCH (08:59)
[2021-01-09] MEDS: AMIODARONE 200 MG TAB PO SCH ×2 (09:00→20:57)
[2021-01-09] MEDS: hydrALAZINE HCL 50 MG TAB PO SCH ×2 (09:00→20:57)
[2021-01-09] MEDS: ISOSORBIDE MONONITRATE ER 30 MG TAB.ER.24H PO SCH (09:00)
[2021-01-09] MEDS: SENNOSIDES-DOCUSATE SODIUM 1 EACH TAB PO SCH (09:00)
[2021-01-09] MEDS: LORATADINE 10 MG TAB PO SCH (09:00)
[2021-01-09] MEDS: NORTRIPTYLINE 25 MG CAP PO SCH (09:00)
[2021-01-09] MEDS: APIXABAN 5 MG TAB PO SCH ×2 (09:00→20:57)
[2021-01-09] MEDS: ATORVASTATIN 40 MG TAB PO SCH (09:01)
[2021-01-09 10:04] LABS: Calcium 9.4 mg/dL (8.4-10.2); Magnesium 2.3 mg/dL (1.6-2.3); Potassium 4.8 mmol/L (3.5-5.1)
--- NOTE | 2021-01-09 10:32 | P.PN ---
<Kathe North A - Last Filed: 01/09/21 10:02> Subjective Progress Note Date: 01/09/21 HISTORY OF PRESENT ILLNESS This is a 60-year-old female patient at the [facility] she has a past medical history of COPD, diabetes mellitus type 2, GERD, hypertension, hyperlipidemia, generalized osteoarthritis, tobacco use and dependence. Patient was recently hospitalized at [facility] in [place] and was discharged about 2-3 days ago. While she was at [facility] she had a left-sided thoracentesis and about 800 mL removed from the pleural space. She underwent cardioversion for her chronic atrial fibrillation. She was then sent home after 5 days. She was home for about a day and then presented back to the hospital yesterday with increasing shortness of breath. She was hypoxic noted to be 60% per EMS's reports she is on 5 L nasal cannula at home. Patient was placed on BiPAP upon arrival to the emergency department. She was given IV Lasix. The patient was also found to be in A. fib/A flutter with RVR and was given 15 mg IV push of Cardizem. Troponin was mildly elevated at 0.072, BUN 64, creatinine 1.75. C hest x-ray revealed bibasilar effusions as well as pulmonary vascular congestion. She was transferred to the ICU. Patient continues on high flow oxygen currently saturating 90%, blood pressure stable at 118/88 heart rate is in the 70s. She continues on amiodarone 400 mg twice a day as well as Cardizem drip. Currently receiving 40 mg IV push of Lasix as well as metolazone 2.5 mg. 01/06: Patient evaluated this morning in the intensive care unit. She is now off high flow o2 and is currently on 5L nasal cannula, saturation is 97%. She is afebrile temperature 98.5, heart rate running between 70s to 80s, blood pressure 129/81. Repeat laboratory values revealed WBC 4.7, hemoglobin 9.2, sodium 141, potassium 5.5, BUN 68, creatinine 2.11. She is down 0.7 kg from admission, she continues with furosemide 40 mg twice a day. Cardiology has transitioned her IV Cardizem to oral. Chest x-ray reveals possible pneumonia will obtain a pro- calcitonin. 01/07: Patient remains in the intensive care unit. She is there as an overflow for the cardiac stepdown unit. She has been off BiPAP since yesterday afternoon. Patient complains of a dry cough and chills. She states her appetite comes and goes. Cardizem drip has been discontinued and patient has been switched from IV Lasix to Bumex IV. Chest x-ray reveals bilateral infiltrate and pleural effusion stable. Chest ultrasound revealed right pleural effusion pocket size of 9.5 cm and left pleural effusion pocket size of 8.3 cm. pulmonary medicine is planning for thoracentesis today and eliquis is on hold. Sodium 142, potassium 5.4, BUN 67, creatinine 1.86 and magnesium 2.6. Blood sugars are running between 100 1148. Patient has been afebrile, heart rate 72, blood pressure 145/86, pulse ox 93% on 4 L nasal cannula. night monitor is sinus rhythm. 01/08: Patient is seen today on the cardiac stepdown unit. Yesterday, patient underwent right-sided thoracentesis with removal of 900 MLS of turbid colored fluid. This morning, patient underwent a left-sided thoracentesis with removal of 650 ML's of turbid colored fluid by Dr. Aguilar. Cytology report is pending. Patient states the coughing episodes or loss and she is not having any shortness of breath. She states her legs feel heavy and PT and OT consults will be added. Patient normally walks with a walker. Patient has been afebrile, heart rate in the 70s and 80s, blood pressure 130/70, pulse ox 94% on 3 L nasal cannula Repeat blood work reveals sodium 140, potassium 5.4, chloride 95, CO2 40, BUN 69 creatinine 2.01. Blood sugars are running between 113 and 235. Repeat chest x-ray performed yesterday reveals bilateral pleural effusions. Pleural fluid on the right side reduced compared to exam in the morning. Heart failure. No change in large pleural fluid on the left side area and Repeat chest x-ray this morning reveals significant diminution in left-sided pleural effusion status post thoracentesis. Basal infiltrates or atelectasis noted. Plan is to continue IV Bumex, eliquis can be resumed 01/09: Patient states that shortness of breath is controlled. No significant cough. No fever or chills. Patient denies having abdominal pain, no diarrhea. Pleural fluid cytology remains pending. Patient remains afebrile, heart rate 79, blood pressure 140/77, pulse ox 96% on 3 L nasal cannula. Blood sugars are running between 71-156. Discussed discharge planning with the patient and she states her daughter moved in with her to stay and help her. She also has a sister that helps her with grocery shopping and stops in frequently. REVIEW OF SYSTEMS Constitutional: No fever, reports chills, no night sweats. No weight change. No weakness, fatigue or lethargy. No daytime sleepiness. EENT: No headache. No blurred vision or double vision, no loss of vision. No loss of Hearing, no ringing in the ears, no dizziness. No nasal drainage or congestion. No epistaxis. No sore throat. Lungs:Denies shortness of breath, cough, no sputum production. No wheezing. Cardiovascular: No chest pain, no lower extremity edema. No palpitations. No paroxysmal nocturnal dyspnea. No orthopnea. No lightheadedness or dizziness. No syncopal episodes. Abdominal: No abdominal pain. No nausea, vomiting. No diarrhea. No constipation. No bloody or tarry stools. Reports loss of appetite. Genitourinary: No dysuria, increased frequency, urgency. No urinary retention. Musculoskeletal: No myalgias. No muscle weakness, no gait dysfunction, no frequent falls. No back pain. No neck pain. Integumentary: No wounds, no lesions. No rash or pruritus. No unusual bruising. No change in hair or nails. Neurologic: No aphasia. No facial droop. No change in mentation. No head injury. No headache. No paralysis. No paresthesia. Psychiatric: No depression. No anxiety. No mood swings. Endocrine: No abnormal blood sugars. PHYSICAL EXAMINATION Gen: This is a 60-year-old black female, resting in the ICU bed and appears to be comfortable and in no acute distress. No respiratory distress is noted. HEENT: Head is atraumatic, normocephalic. Pupils equal, round. Sclerae is anicteric. NECK: Supple. No JVD. No lymphadenopathy. No thyromegaly. LUNGS: Diminished bilateral bases. Scattered rhonchi. o intercostal retractions. No accessory muscle usage. HEART: Regular rate and rhythm. No murmur. ABDOMEN: Soft. Bowel sounds are present. No masses. No tenderness. EXTREMITIES: trace bilateral pedal edema. No calf tenderness. NEUROLOGICAL: Patient is awake, alert and oriented x3. Cranial nerves 2 through 12 are grossly intact. ASSESSMENT AND PLAN 1. Acute hypoxic respiratory failure secondary to acute on chronic diastolic heart failure and bilateral pleural effusions. History of recent admission to [facility] status post cardioversion and left-sided thoracentesis. Continue Bumex 2 mg IV push twice daily. Continue on supplemental oxygen, followed by pulmonary medicine and meat blender. Patient is status post bilateral thoracentesis. 2. Atrial tachycardia. history of recent recent cardioversion at [facility]. Continue amiodarone 400 mg twice a day, metoprolol 50 mg 3 times a day, Eliquis 5 mg twice a day for anticoagulation--to be resumed once cleared by pulmonary. Cardiology consult appreciated. 3. Acute kidney injury with chronic kidney disease stage III. We'll monitor kidney function closely. 4. COPD. continue on high flow oxygen along with updrafts 5. Hypertensin. On metoprolol 50 mg 3 times a day, isosorbide 30 mg daily, hydralazine 50 mg twice a day 6. Hyperlipidemia. Lipitor 40 mg daily 7. Diabetes mellitus type 2. Levemir 25 units daily, NovoLog scale before meals and at bedtime. 8. Gastroesophageal esophageal reflux disease. Pantoprazole 9. Recurrent Depression. Nortriptyline 25 mg daily 10. Diabetic neuropathy. Nortriptyline 25 mg daily 11. Chronic lower back pain. see's Dr Day for pain management, on [place] 11. DVT prophylaxis. Eliquis 5 mg twice a day 12. GI prophylaxis. Pantoprazole 13. Chronic hypoxic respiratory failure on home oxygen therapy. DISCHARGE PLAN Home with homecare on Impression and plan of care have been directed as dictated by the signing physician. Kathe North nurse practitioner acting as scribe for signing physician. Objective - Vital Signs Vital signs: Vital Signs Temp 98.6 F 01/09/21 08:47 Pulse 79 01/09/21 08:47 Resp 18 01/09/21 08:47 BP 140/77 01/09/21 08:47 Pulse Ox 96 01/09/21 08:47 Intake & Output 01/08/21 01/09/21 01/09/21 18:59 06:59 18:59 Intake Total 720 600 Output Total 1250 1500 Balance -530 -1500 600 Weight 91.2 kg Intake: Oral 720 600 Output: Drainage 650 Left Back 650 Urine 600 1100 Stool 400 Other: Voiding Method External Catheter External Catheter # Voids 1 1 # Bowel Movements 1 - Labs CBC & Chem 7: 01/06/21 03:00 01/08/21 08:48 Labs: Abnormal Lab Results - Last 24 Hours (Table) 01/08/21 01/08/21 01/08/21 Range/Units 08:48 11:35 16:37 Potassium 5.4 H (3.5-5.1) mmol/L Chloride 95 L (98-107) mmol/L Carbon Dioxide 40 H (22-30) mmol/L BUN 69 H (7-17) mg/dL Creatinine 2.01 H (0.52-1.04) mg/dL Glucose 132 H (74-99) mg/dL POC Glucose (mg/dL) 113 H 140 H (75-99) mg/dL 01/08/21 01/09/21 Range/Units 20:10 06:11 Potassium (3.5-5.1) mmol/L Chloride (98-107) mmol/L Carbon Dioxide (22-30) mmol/L BUN (7-17) mg/dL Creatinine (0.52-1.04) mg/dL Glucose (74-99) mg/dL POC Glucose (mg/dL) 156 H 71 L (75-99) mg/dL Microbiology - Last 24 Hours (Table) 01/07/21 16:00 Gram Stain - Preliminary Pleural Fluid Body Fluid Culture - Preliminary Gram Neg Bacilli <Nell Palafoxyl - Last Filed: 01/17/21 19:01> Objective - Vital Signs Vital signs: Vital Signs Temp 98 F 01/10/21 10:36 Pulse 70 01/10/21 12:55 Resp 16 01/10/21 12:55 BP 137/71 01/10/21 10:36 Pulse Ox 98 01/10/21 10:36 - Labs CBC & Chem 7: 01/06/21 03:00 01/10/21 07:05
[2021-01-09 10:57] VITALS: BMI 32.4
[2021-01-09 11:42] LABS: Glucose,Whole Blood 126 mg/dL (75-99)
--- NOTE | 2021-01-09 13:07 | P.PN ---
Subjective Progress Note Date: 01/09/21 Principal diagnosis: Dyspnea, pulmonary edema On 01/01/2021 patient seen in follow-up on selective care unit, she status post left-sided thoracentesis yesterday with removal of 650 ML of turbid colored pleural fluid which was discarded, on 01/07/2021 patient had right-sided tho racentesis with removal of 900 mL of turbid colored fluid which was sent for analysis, cytology and cultures. Pleural fluid analysis showed transudate fluid however pleural fluid cultures are showing gram-negative bacilli, without clear evidence of pleural space infection. She has denied any chest pain, she has had no fever or chills. Antibiotics were added, although there is questionable infection present. She has had no leukocytosis, no fever or chills, her breathing is improving, she remains on diuretics 2 mg IV twice daily and she is in -2 L over the last 24 hours. Patient does have home O2, at 3 L. She is currently satting 96% on 3 L, room air pulse ox was 80%, and oxygen was placed back on, physical therapy is following the patient and patient is tolerating getting up out of bed, and walking with a walker and frequent rest periods. Objective - Vital Signs Vital signs: Vital Signs Temp 98.6 F 01/09/21 08:47 Pulse 78 01/09/21 12:00 Resp 18 01/09/21 12:00 BP 136/77 01/09/21 12:00 Pulse Ox 94 L 01/09/21 12:00 Intake & Output 01/08/21 01/09/21 01/09/21 18:59 06:59 18:59 Intake Total 720 960 Output Total 1250 1500 400 Balance -530 -1500 560 Weight 91.2 kg 91.2 kg Intake: Oral 720 960 Output: Drainage 650 Left Back 650 Urine 600 1100 Stool 400 400 Other: Voiding Method External Catheter External Catheter External Catheter # Voids 1 2 # Bowel Movements 1 1 - Exam GENERAL EXAM: Alert, very pleasant, 60-year-old -Burm[place] female, currently on 3 L of oxygen with pulse ox of 96% comfortable in no apparent distress. HEAD: Normocephalic/atraumatic. EYES: Normal reaction of pupils, equal size. Conjunctiva pink, sclera white. NOSE: Clear with pink turbinates. THROAT: No erythema or exudates. NECK: No masses, no JVD, no thyroid enlargement, no adenopathy. CHEST: No chest wall deformity. Symmetrical expansion. LUNGS: Equal air entry with diminished breath sounds at the bases, and a mild crackles CVS: Regular rate and rhythm, normal S1 and S2, no gallops, no murmurs, no rubs ABDOMEN: Soft, nontender. No hepatosplenomegaly, normal bowel sounds, no guarding or rigidity. EXTREMITIES: No clubbing, no edema, no cyanosis, 2+ pulses and upper and lower extremities. MUSCULOSKELETAL: Muscle strength and tone normal. SPINE: No scoliosis or deformity SKIN: No rashes CENTRAL NERVOUS SYSTEM: Alert and oriented -3. No focal deficits, tone is normal in all 4 extremities. PSYCHIATRIC: Alert and oriented -3. Appropriate affect. Intact judgment and insight. - Labs CBC & Chem 7: 01/06/21 03:00 01/09/21 09:19 Labs: Abnormal Lab Results - Last 24 Hours (Table) 01/08/21 01/08/21 01/09/21 Range/Units 16:37 20:10 06:11 Chloride (98-107) mmol/L Carbon Dioxide (22-30) mmol/L BUN (7-17) mg/dL Creatinine (0.52-1.04) mg/dL Glucose (74-99) mg/dL POC Glucose (mg/dL) 140 H 156 H 71 L (75-99) mg/dL 01/09/21 01/09/21 Range/Units 09:19 11:40 Chloride 95 L (98-107) mmol/L Carbon Dioxide 40 H (22-30) mmol/L BUN 62 H (7-17) mg/dL Creatinine 2.07 H (0.52-1.04) mg/dL Glucose 142 H (74-99) mg/dL POC Glucose (mg/dL) 126 H (75-99) mg/dL Microbiology - Last 24 Hours (Table) 01/07/21 16:00 Gram Stain - Preliminary Pleural Fluid Body Fluid Culture - Preliminary Gram Neg Bacilli Assessment and Plan Plan: Assessment: #1. Acute hypoxic rest related to acute exacerbation of diastolic CHF requiring BiPAP support. Patient is improving, she status post right thoracentesis on the 01/07/2021 with removal of 900 mL of turbid colored pleural fluid which was transudate. Patient is status post left-sided thoracentesis on 01/08/2021 with removal of 650 mL of turbid colored pleural fluid #2. Recent hospitalization at [facility] for 5 days and patient had cardioversion, and left-sided thoracentesis of 800 mL #3. Chronic atrial fibrillation on Eliquis #4. Chronic stage III CTD with a component of acute kidney injury #5. Chronic diastolic heart failure with severe concentric LVH, 60 pulmonary hypertension and RV overload #6. History of sleep apnea syndrome #7. History of hypertension #8. History of hyperlipidemia #9. History of diabetes mellitus type 2, with retinopathy and possible nephropathy #10. Prior history of tobacco abuse #11. Diabetic neuropathy and diabetic retinopathy #12. History of GERD and reflux #13. History of prostatitis Plan: Patient alert significant improvement in her breathing Continue Bumex Eliquis has been resumed Pleural effusion cultures from the right-sided thoracentesis are starting to show gram-negative bacilli, final cultures pending, however there is no clear evidence of pleural space infection Increase activity as tolerated She does have home oxygen Renal function is improving She's had no acute events overnight Await results of the final pleural fluid culture, however the pleural fluid was transudative, and there is low suspicion for empyema I performed a history & physical examination of the patient and discussed their management with my nurse practitioner, Argelia Alvarado. I reviewed the nurse practitioner's note and agree with the documented findings and plan of care. Lung sounds are positive for diminished breath sounds. The findings and the impression was discussed with the patient. I attest to the documentation by the nurse practitioner. Time with Patient: Less than 30
--- NOTE | 2021-01-09 13:17 | P.PN ---
Subjective This is a pleasant 60-year-old -[place] female past medical history significant for diabetes mellitus, hypertension, hypertrophic cardiomyopathy and dyslipidemia. She does not follow with a wet pan operator at this time. She does have a follow up with a wet pan operator at [facility] in [place] but does not recall the physician. She is also newly diagnosed atrial fibrillation. Continues to be maintained on oral anticoagulation. She is seen and examined sitting up in bed in no acute distress. She is feeling much better, denies shortness of breath, chest pain, lightheadedness, dizziness, palpitations. Her lower extremity edema has improved. She underwent left sided thoracentesis with pulmonary with 650mL removed. Blood pressure 135/69, heart rate 76, afebrile, maintaining oxygen saturation is 96% on 3 L nasal cannula Telemetry reviewed patient maintaining sinus mechanism heart rate 70s. Currently maintained on amiodarone 400 mg twice a day, Eliquis 5 mg twice a day (on hold currently), atorvastatin 40 mg daily, hydralazine 50 mg twice a day, Imdur 30 mg daily, Lopressor 50 mg 3 times a day, IV Bumex 2mg BID. 2.1L urine output over the past 24 hours. Laboratory data reviewed, sodium 139, potassium 4.8, BUN 62, serum creatinine 2.07, magnesium 2.3 Echocardiogram 10/2020 revealed EF 55-60%, severe concentric left ventricular hypertrophy, paradoxical motion of the right ventricular septum consistent with right ventricular overload and/or elevated right ventricular end diastolic pressure moderate tricuspid regurgitation, severe pulmonary hypertension with RVSP 69mmHg GENERAL: Well-appearing, well-nourished and in no acute distress. NECK: Supple with bilateral JVD or thyromegaly. LUNGS: Diminished in the bases. no wheezes or rhonchi. Respiration equal and unlabored. HEART: Regular rate and rhythm, systolic murmur noted. S1 and S2 heard. SKIN: right back thoracentesis site covered with bandaid no hematoma or pain noted, left back thoracentesis site covered with bandaid no hematoma EXTREMITIES: Normal range of motion, mild bilateral lower extremity pitting edema. No clubbing or cyanosis. Peripheral pulses intact. ASSESSMENT Atrial tachycardia, currently maintaining sinus mechanism Acute on chronic diastolic heart failure Hyperkalemia History of hypertrophic heart disease Hypertension Diabetes mellitus Dyslipidemia Proximal atrial fibrillation on long-term anticoagulation Chronic kidney disease Severe concentric left ventricular hypertrophy s/p right sided thoracentesis 01/07 with 900mL removed s/p left sided thoracentesis 01/08 with 650mL removed PLAN Transition to PO Bumex Continue Eliquis 5mg BID Continue to document accurate intake and output along with daily weights. Follow renal function and electrolytes in the morning. Continue to hold daily potassium supplementation secondary to hyperkalemia, which is improving. Further recommendations to follow based upon clinical course. Reviewing patient's Echocardiogram and EKG patient with low voltage and severe LVH seen on echo, there is concern for cardiac amyloidosis, we will continue to follow patient as an outpatient for further workup As an outpatient patient will follow up in the office with Dr. Song Nurse Practitioner note has been reviewed, I agree with a documented findings and plan of care. Patient was seen and examined. Objective - Vital Signs Vital signs: Vital Signs Temp 98.3 F 01/08/21 22:52 Pulse 76 01/09/21 08:34 Resp 18 01/09/21 04:00 BP 135/69 01/09/21 04:00 Pulse Ox 96 01/09/21 04:00 Intake & Output 01/08/21 01/09/21 01/09/21 18:59 06:59 18:59 Intake Total 720 600 Output Total 1250 1500 Balance -530 -1500 600 Weight 91.2 kg Intake: Oral 720 600 Output: Drainage 650 Left Back 650 Urine 600 1100 Stool 400 Other: Voiding Method External Catheter External Catheter # Voids 1 1 # Bowel Movements 1 - Labs CBC & Chem 7: 01/06/21 03:00 01/09/21 09:19 Labs: Abnormal Lab Results - Last 24 Hours (Table) 01/08/21 01/08/21 01/08/21 Range/Units 08:48 11:35 16:37 Potassium 5.4 H (3.5-5.1) mmol/L Chloride 95 L (98-107) mmol/L Carbon Dioxide 40 H (22-30) mmol/L BUN 69 H (7-17) mg/dL Creatinine 2.01 H (0.52-1.04) mg/dL Glucose 132 H (74-99) mg/dL POC Glucose (mg/dL) 113 H 140 H (75-99) mg/dL 01/08/21 01/09/21 Range/Units 20:10 06:11 Potassium (3.5-5.1) mmol/L Chloride (98-107) mmol/L Carbon Dioxide (22-30) mmol/L BUN (7-17) mg/dL Creatinine (0.52-1.04) mg/dL Glucose (74-99) mg/dL POC Glucose (mg/dL) 156 H 71 L (75-99) mg/dL Microbiology - Last 24 Hours (Table) 01/07/21 16:00 Gram Stain - Preliminary Pleural Fluid Body Fluid Culture - Preliminary Gram Neg Bacilli
[2021-01-09 16:55] LABS: Glucose,Whole Blood 176 mg/dL (75-99)
[2021-01-09 19:47] LABS: Glucose,Whole Blood 172 mg/dL (75-99)
[2021-01-09] MEDS: INSULIN DETEMIR (LEVEMIR) 100 UNIT/ML SYR SQ SCH (20:57)
[2021-01-09] MEDS: MONTELUKAST 10 MG TAB PO SCH (20:57)
[2021-01-10 06:03] LABS: Glucose,Whole Blood 119 mg/dL (75-99)
[2021-01-10] MEDS: INSULIN ASPART (NovoLOG) 100 UNIT/ML VIAL SQ SCH ×2 (06:06→12:38)
[2021-01-10] MEDS: IPRATROPIUM-ALBUTEROL 3 ML NEB INHALATION SCH ×2 (07:37→11:06)
[2021-01-10 08:19] VITALS: RESP 16; TEMP 98
[2021-01-10 08:20] LABS: Calcium 9.4 mg/dL (8.4-10.2); Potassium 4.7 mmol/L (3.5-5.1)
[2021-01-10] MEDS: SENNOSIDES-DOCUSATE SODIUM 1 EACH TAB PO SCH (08:31)
[2021-01-10] MEDS: APIXABAN 5 MG TAB PO SCH (08:31)
[2021-01-10] MEDS: ATORVASTATIN 40 MG TAB PO SCH (08:31)
[2021-01-10] MEDS: LORATADINE 10 MG TAB PO SCH (08:31)
[2021-01-10] MEDS: AMIODARONE 200 MG TAB PO SCH (08:31)
[2021-01-10] MEDS: METOPROLOL TARTRATE 50 MG TAB PO SCH (08:31)
[2021-01-10] MEDS: hydrALAZINE HCL 50 MG TAB PO SCH (08:31)
[2021-01-10] MEDS: PIPERACILLIN-TAZOBACTAM 3.375 GM in SODIUM CHLORIDE 0.9% 100 ML IVPB SCH (08:32)
[2021-01-10] MEDS: NORTRIPTYLINE 25 MG CAP PO SCH (08:32)
[2021-01-10] MEDS: ISOSORBIDE MONONITRATE ER 30 MG TAB.ER.24H PO SCH (08:32)
[2021-01-10] MEDS ORDERED: BUMETANIDE 1 MG TAB PO SCH (09:00)
[2021-01-10 10:37] VITALS: BP 137/71; PULSE 70
--- NOTE | 2021-01-10 10:56 | P.DS ---
Providers Date of admission: 01/04/21 15:57 Expected date of discharge: 01/10/21 Attending physician: Franko Aleman Consults: 01/04/21 15:57 Consult Physician Stat Consulting Provider: Elizabeth Song Consult Reason/Comments: afib with rvr, nstemi Do you want consulting provider notified?: Already Contacted 01/04/21 15:58 Consult Physician Stat Consulting Provider: Xander Dexter Consult Reason/Comments: afib with rvr, resp failure, nstemi, chf exacerbation Do you want consulting provider notified?: Already Contacted Primary care physician: [facility] Course: HISTORY OF PRESENT ILLNESS This is a 60-year-old female patient at the [facility] she has a past medical history of COPD, diabetes mellitus type 2, GERD, hypertension, hyperlipidemia, generalized osteoarthritis, tobacco use and dependence. Patient was recently hospitalized at [facility] in [place] and was discharged about 2-3 days ago. While she was at [place] [facility] she had a left-sided thoracentesis and about 800 mL removed from the pleural space. She underwent cardioversion for her chronic atrial fibrillation. She was then sent home after 5 days. She was home for about a day and then presented back to the hospital yesterday with increasing shortness of breath. She was hypoxic noted to be 60% per EMS's reports she is on 5 L nasal cannula at home. Patient was placed on BiPAP upon arrival to the emergency department. She was given IV Lasix. The patient was also found to be in A. fib/A flutter with RVR and was given 15 mg IV push of Cardizem. Troponin was mildly elevated at 0.072, BUN 64, creatinine 1.75. Chest x-ray revealed bibasilar effusions as well as pulmonary vascular congestion. She was transferred to the ICU. Patient continues on high flow oxyg en currently saturating 90%, blood pressure stable at 118/88 heart rate is in the 70s. She continues on amiodarone 400 mg twice a day as well as Cardizem drip. Currently receiving 40 mg IV push of Lasix as well as metolazone 2.5 mg. 01/06: Patient evaluated this morning in the intensive care unit. She is now off high flow o2 and is currently on 5L nasal cannula, saturation is 97%. She is af ebrile temperature 98.5, heart rate running between 70s to 80s, blood pressure 129/81. Repeat laboratory values revealed WBC 4.7, hemoglobin 9.2, sodium 141, potassium 5.5, BUN 68, creatinine 2.11. She is down 0.7 kg from admission, she continues with furosemide 40 mg twice a day. Cardiology has transitioned her IV Cardizem to oral. Chest x-ray reveals possible pneumonia will obtain a pro-calcitonin. 01/07: Patient remains in the intensive care unit. She is there as an overflow for the cardiac stepdown unit. She has been off BiPAP since yesterday afternoon. Patient complains of a dry cough and chills. She states her appetite comes and goes. Cardizem drip has been discontinued and patient has been switched from IV Lasix to Bumex IV. Chest x-ray reveals bilateral infiltrate and pleural effusion stable. Chest ultrasound revealed right pleural effusion pocket size of 9.5 cm and left pleural effusion pocket size of 8.3 cm. pulmonary medicine is planning for thoracentesis today and eliquis is on hold. Sodium 142, potassium 5.4, BUN 67, creatinine 1.86 and magnesium 2.6. Blood sugars are running between 100 1148. Patient has been afebrile, heart rate 72, blood pressure 145/86, pulse ox 93% on 4 L nasal cannula. banking specialist is sinus rhythm. 01/08: Patient is seen today on the cardiac stepdown unit. Yesterday, patient underwent right-sided thoracentesis with removal of 900 MLS of turbid colored fluid. This morning, patient underwent a left-sided thoracentesis with removal of 650 ML's of turbid colored fluid by Dr. Aguilar. Cytology report is pending. Patient states the coughing episodes or loss and she is not having any shortness of breath. She states her legs feel heavy and PT and OT consults will be added. Patient normally walks with a walker. Patient has been afebrile, heart rate in the 70s and 80s, blood pressure 130/70, pulse ox 94% on 3 L nasal cannula Repeat blood work reveals sodium 140, potassium 5.4, chloride 95, CO2 40, BUN 69 creatinine 2.01. Blood sugars are running between 113 and 235. Repeat chest x-ray performed yesterday reveals bilateral pleural effusions. Pleural fluid on the right side reduced compared to exam in the morning. Heart failure. No change in large pleural fluid on the left side area and Repeat chest x-ray this morning reveals significant diminution in left-sided pleural effusion status post thoracentesis. Basal infiltrates or atelectasis noted. Plan is to continue IV Bumex, eliquis can be resumed 01/09: Patient states that shortness of breath is controlled. No significant cough. No fever or chills. Patient denies having abdominal pain, no diarrhea. Pleural fluid cytology remains pending. Patient remains afebrile, heart rate 79, blood pressure 140/77, pulse ox 96% on 3 L nasal cannula. Blood sugars are running between 71-156. Discussed discharge planning with the patient and she states her daughter moved in with her to stay and help her. She also has a sister that helps her with grocery shopping and stops in frequently. 01/10: Cardiology is advised follow up with Dr. Song regarding possible cardiac amyloidosis. Eliquis dose has been changed 5 mg twice daily and Bumex transitioned to oral. Cardiac medications have been addressed and will wait for her etiology to address home dosing of amiodarone. Pulmonary medicine is following and plan for outpatient follow-up in the office. Pleural effusion culture is positive for enterococcus and patient will be discharged on Cipro. Cytology is pending. Repeat blood work reveals sodium 141, potassium 4.7, chloride 97, CO2 38, BUN 58 and creatinine 1.93. Blood sugars are running between 89 and 176. Patient will be discharged home today in stable condition. ASSESSMENT AND PLAN 1. Acute hypoxic respiratory failure secondary to acute on chronic diastolic heart failure and bilateral pleural effusions. History of recent admission to [facility] status post cardioversion and left-sided thoracentesis. Patient is status post bilateral thoracentesis. 2. Atrial tachycardia. history of recent recent cardioversion at [facility]. 3. Acute kidney injury with chronic kidney disease stage III. 4. COPD. 5. Hypertensin. 6. Hyperlipidemia. 7. Diabetes mellitus type 2. 8. Gastroesophageal esophageal reflux disease. 9. Recurrent Depression. 10. Diabetic neuropathy. 11. Chronic lower back pain. 12. Possible cardiac amyloidosis. 13. Chronic hypoxic respiratory failure on home oxygen therapy. DISCHARGE PLAN Home with homecare Impression and plan of care have been directed as dictated by the signing physician. Kathe North nurse practitioner acting as scribe for signing physician. Patient Condition at Discharge: Stable Plan - Discharge Summary Discharge Rx Participant: No New Discharge Prescriptions: New Ipratropium-Albuterol Nebulize [Duoneb 0.5 mg-3 mg/3 ml Soln] 3 ml INHALATION RT-QID ml Isosorbide Mononitrate ER [Imdur] 30 mg PO DAILY #30 tab.er.24h Metoprolol Tartrate [Lopressor] 50 mg PO TID #90 tab hydrALAZINE HCL [Apresoline] 50 mg PO BID #60 tab Bumetanide [BUMEX] 2 mg PO DAILY #60 tab Ciprofloxacin HCl [Cipro] 500 mg PO BID 14 Days #28 tab Apixaban [Eliquis] 5 mg PO BID #60 tab Atorvastatin [Lipitor] 40 mg PO DAILY #30 tab Continue INSULIN LISPRO (humaLOG) [humaLOG] See Protocol SQ AC-TID Loratadine [Claritin] 10 mg PO DAILY Montelukast [Singulair] 10 mg PO HS Nortriptyline [Pamelor] 25 mg PO DAILY Polyethylene Glycol 3350 [Miralax] 17 gm PO DAILY PRN PRN Reason: Constipation Sennosides-Docusate Sodium [Senokot-S] 1 tab PO BID PRN PRN Reason: Constipation Insulin Detemir (Levemir) [Levemir] 25 unit SQ HS Potassium Chloride ER [K-Dur 10] 10 meq PO BID Melatonin 6 mg PO HS PRN PRN Reason: Insomnia metOLazone 2.5 mg PO FR@1200 Discontinued Pioglitazone [Actos] 30 mg PO DAILY Aspirin 81 mg PO DAILY chew Furosemide [Lasix] 40 mg PO BID Apixaban [Eliquis] 2.5 mg PO BID Bumetanide [Bumex] 1 mg PO DAILY hydrALAZINE HCL [Apresoline] 25 mg PO BID No Action Vitamin D3 50,000iu 1,250 mcg PO WE HYDROcodone/APAP 10-325MG [[place] 10-325] 1 tab PO Q6H PRN PRN Reason: Pain Pioglitazone [Actos] 30 mg PO DAILY Furosemide [Lasix] 40 mg PO BID Aspirin 81 mg PO DAILY Amiodarone [Cordarone] See Taper PO DIRECTED Triamcinolone Acetonide [Triamcinolone Acetonide 0.025%] 1 applic TOPICAL BID PRN PRN Reason: Rash Albuterol Sulfate [Proventil Hfa] 1 - 2 puff INHALATION RT-Q6H PRN PRN Reason: Shortness Of Breath Discharge Medication List INSULIN LISPRO (humaLOG) [humaLOG] See Protocol SQ AC-TID 08/24/20 [History] Loratadine [Claritin] 10 mg PO DAILY 08/24/20 [History] Montelukast [Singulair] 10 mg PO HS 08/24/20 [History] Nortriptyline [Pamelor] 25 mg PO DAILY 08/24/20 [History] Polyethylene Glycol 3350 [Miralax] 17 gm PO DAILY PRN 08/24/20 [History] Sennosides-Docusate Sodium [Senokot-S] 1 tab PO BID PRN 08/24/20 [History] Insulin Detemir (Levemir) [Levemir] 25 unit SQ HS 01/04/21 [History] Melatonin 6 mg PO HS PRN 01/04/21 [History] Potassium Chloride ER [K-Dur 10] 10 meq PO BID 01/04/21 [History] metOLazone 2.5 mg PO FR@1200 01/04/21 [History] Apixaban [Eliquis] 5 mg PO BID #60 tab 01/10/21 [Rx] Atorvastatin [Lipitor] 40 mg PO DAILY #30 tab 01/10/21 [Rx] Bumetanide [BUMEX] 2 mg PO DAILY #60 tab 01/10/21 [Rx] Ciprofloxacin HCl [Cipro] 500 mg PO BID 14 Days #28 tab 01/10/21 [Rx] Ipratropium-Albuterol Nebulize [Duoneb 0.5 mg-3 mg/3 ml Soln] 3 ml INHALATION RT-QID ml 01/10/21 [Rx] Isosorbide Mononitrate ER [Imdur] 30 mg PO DAILY #30 tab.er.24h 01/10/21 [Rx] Metoprolol Tartrate [Lopressor] 50 mg PO TID #90 tab 01/10/21 [Rx] hydrALAZINE HCL [Apresoline] 50 mg PO BID #60 tab 01/10/21 [Rx] Albuterol Sulfate [Proventil Hfa] 1 - 2 puff INHALATION RT-Q6H PRN 01/24/21 [History] Amiodarone [Cordarone] See Taper PO DIRECTED 01/24/21 [History] Aspirin 81 mg PO DAILY 01/24/21 [History] Furosemide [Lasix] 40 mg PO BID 01/24/21 [History] HYDROcodone/APAP 10-325MG [[place] 10-325] 1 tab PO Q6H PRN 01/24/21 [History] Pioglitazone [Actos] 30 mg PO DAILY 01/24/21 [History] Triamcinolone Acetonide [Triamcinolone Acetonide 0.025%] 1 applic TOPICAL BID PRN 01/24/21 [History] Vitamin D3 50,000iu 1,250 mcg PO WE 01/24/21 [History] Follow up Appointment(s)/Referral(s): Elizabeth Song MD [STAFF PHYSICIAN] - 2 Weeks Xander Dexter DO [Doctor of Osteopathic Medicine] - 1 Week [facility] [Primary Care Provider] - 1 Week Tushar Brush MD [STAFF PHYSICIAN] - 1 Week (Pseudomonas pneumonia) Patient Instructions/Handouts: A-fib (Atrial Fibrillation) (DC) Discharge Disposition: HOME SELF-CARE
[2021-01-10 12:51] LABS: Glucose,Whole Blood 98 mg/dL (75-99)
--- NOTE | 2021-01-10 14:49 | P.PN ---
Subjective Progress Note Date: 01/10/21 Principal diagnosis: Dyspnea, pulmonary edema On 01/01/2021 patient seen in follow-up on selective care unit, she status post left-sided thoracentesis yesterday with removal of 650 ML of turbid colored pleural fluid which was discarded, on 01/07/2021 patient had right-sided tho racentesis with removal of 900 mL of turbid colored fluid which was sent for analysis, cytology and cultures. Pleural fluid analysis showed transudate fluid however pleural fluid cultures are showing gram-negative bacilli, without clear evidence of pleural space infection. She has denied any chest pain, she has had no fever or chills. Antibiotics were added, although there is questionable infection present. She has had no leukocytosis, no fever or chills, her breathing is improving, she remains on diuretics 2 mg IV twice daily and she is in -2 L over the last 24 hours. Patient does have home O2, at 3 L. She is currently satting 96% on 3 L, room air pulse ox was 80%, and oxygen was placed back on, physical therapy is following the patient and patient is tolerating getting up out of bed, and walking with a walker and frequent rest periods. On 01/10/2021 patient seen in follow-up on selective care unit. She is awake and alert oriented 2, he is currently on 3 L of oxygen pulse ox is 90%, she is afebrile, she is breathing comfortably, she status post right and left thoracentesis, she also remains on Bumex, 2 mg daily, is a -1085 ML fluid balance over the last 24 hours. Vitals have been stable, she's had no fever or chills, no cough or phlegm production. She was started on Zosyn for evidence of pseudomonas aeruginosa in the pleural fluid cultures which is thought to be co ntaminant. Objective - Vital Signs Vital signs: Vital Signs Temp 98 F 01/10/21 10:36 Pulse 70 01/10/21 12:55 Resp 16 01/10/21 12:55 BP 137/71 01/10/21 10:36 Pulse Ox 98 01/10/21 10:36 Intake & Output 01/09/21 01/10/21 01/10/21 18:59 06:59 18:59 Intake Total 1140 240 240 Output Total 400 0 1325 Balance 740 240 -1085 Weight 91.2 kg 91.6 kg Intake: Oral 1140 240 240 Output: Urine 0 525 Stool 400 800 Other: Voiding Method External Catheter Bedside Commode Bedside Commode # Voids 2 1 # Bowel Movements 1 - Exam GENERAL EXAM: Alert, very pleasant, 60-year-old -[place] female, currently on 3 L of oxygen with pulse ox of 96% comfortable in no apparent distress. HEAD: Normocephalic/atraumatic. EYES: Normal reaction of pupils, equal size. Conjunctiva pink, sclera white. NOSE: Clear with pink turbinates. THROAT: No erythema or exudates. NECK: No masses, no JVD, no thyroid enlargement, no adenopathy. CHEST: No chest wall deformity. Symmetrical expansion. LUNGS: Equal air entry with diminished breath sounds at the bases, and a mild crackles CVS: Regular rate and rhythm, normal S1 and S2, no gallops, no murmurs, no rubs ABDOMEN: Soft, nontender. No hepatosplenomegaly, normal bowel sounds, no guar ding or rigidity. EXTREMITIES: No clubbing, no edema, no cyanosis, 2+ pulses and upper and lower extremities. MUSCULOSKELETAL: Muscle strength and tone normal. SPINE: No scoliosis or deformity SKIN: No rashes CENTRAL NERVOUS SYSTEM: Alert and oriented -3. No focal deficits, tone is normal in all 4 extremities. PSYCHIATRIC: Alert and oriented -3. Appropriate affect. Intact judgment and insight. - Labs CBC & Chem 7: 01/06/21 03:00 01/10/21 07:05 Labs: Abnormal Lab Results - Last 24 Hours (Table) 01/09/21 01/09/21 01/10/21 Range/Units 16:53 19:45 06:02 Chloride (98-107) mmol/L Carbon Dioxide (22-30) mmol/L BUN (7-17) mg/dL Creatinine (0.52-1.04) mg/dL POC Glucose (mg/dL) 176 H 172 H 119 H (75-99) mg/dL 01/10/21 Range/Units 07:05 Chloride 97 L (98-107) mmol/L Carbon Dioxide 38 H (22-30) mmol/L BUN 58 H (7-17) mg/dL Creatinine 1.93 H (0.52-1.04) mg/dL POC Glucose (mg/dL) (75-99) mg/dL Microbiology - Last 24 Hours (Table) 01/07/21 16:00 Gram Stain - Final Pleural Fluid Body Fluid Culture - Final Pseudomonas aeruginosa Assessment and Plan Plan: Assessment: #1. Acute hypoxic rest related to acute exacerbation of diastolic CHF requiring BiPAP support. Patient is improving, she status post right thoracentesis on the 01/07/2021 with removal of 900 mL of turbid colored pleural fluid which was transudate. Patient is status post left-sided thoracentesis on 01/08/2021 with removal of 650 mL of turbid colored pleural fluid #2. Recent hospitalization at [facility] for 5 days and patient had cardioversion, and left-sided thoracentesis of 800 mL #3. Chronic atrial fibrillation on Eliquis #4. Chronic stage III CTD with a component of acute kidney injury #5. Chronic diastolic heart failure with severe concentric LVH, 60 pulmonary hypertension and RV overload #6. History of sleep apnea syndrome #7. History of hypertension #8. History of hyperlipidemia #9. History of diabetes mellitus type 2, with retinopathy and possible n ephropathy #10. Prior history of tobacco abuse #11. Diabetic neuropathy and diabetic retinopathy #12. History of GERD and reflux #13. History of prostatitis #14. Pseudomonas aeruginosa in the pleural fluid culture, the possibility of empyema is doubtful, the fluid was transudate, patient has had no fever or chills, no chest discomfort. She has been covered with Zosyn and patient will b e going home on 70 course of oral ciprofloxacin 500 mg twice daily Plan: Clinically stable Breathing easier Vital signs are stable She has been diuresed and treated with empiric antibiotics Final pleural fluid culture showed pseudomonas aeruginosa, suspicion for empyema is low, there was probably contaminated pleural fluid However patient is stable for discharge home on oral diuretics and 7 day course of ciprofloxacin Follow-up Dr. Quarles in the office in 7-10 days I performed a history & physical examination of the patient and discussed their management with my nurse practitioner, Argelia Alvarado. I reviewed the nurse practitioner's note and agree with the documented findings and plan of care. Lung sounds are positive for diminished breath sounds. The findings and the impression was discussed with the patient. I attest to the documentation by the nurse practitioner. Time with Patient: Less than 30
--- NOTE | 2021-01-10 14:52 | P.PN ---
Subjective This is a pleasant 60-year-old -[place] female past medical history significant for diabetes mellitus, hypertension, hypertrophic cardiomyopathy and dyslipidemia. She does not follow with a cardiac sonographer at this time. She does have a follow up with a cardiac sonographer at [facility] in [place] but does not recall the physician. She is also newly diagnosed atrial fibrillation. Continues to be maintained on oral anticoagulation. She is seen and examined sitting up in bed in no acute distress. She is feeling much better, denies shortness of breath, chest pain, lightheadedness, dizziness, palpitations. Her lower extremity edema has improved. Blood pressure blood pressure 132/74, heart rate 72, afebrile, maintaining oxygen saturation on 3 L nasal cannula. Telemetry reviewed patient maintaining sinus mechanism heart rate 70s. Currently maintained on amiodarone 400 mg twice a day, Eliquis 5 mg twice a day, atorvastatin 40 mg daily, hydralazine 50 mg twice a day, Imdur 30 mg daily, Lopressor 50 mg 3 times a day, Bumex 2 mg by mouth. 2.1L urine output over the past 24 hours. Laboratory data reviewed, sodium 141, potassium 4.7, BUN 58, serum creatinine 1.9 which is improving. Echocardiogram on 10/2020 revealed EF 55-60%, severe concentric left ventricular hypertrophy, paradoxical motion of the right ventricular septum consistent with right ventricular overload and/or elevated right ventricular end diastolic press ure moderate tricuspid regurgitation, severe pulmonary hypertension with RVSP 69mmHg GENERAL: Well-appearing, well-nourished and in no acute distress. NECK: Supple with bilateral JVD or thyromegaly. LUNGS: Diminished in the bases. no wheezes or rhonchi. Respiration equal and unlabored. HEART: Regular rate and rhythm, systolic murmur noted. S1 and S2 heard. SKIN: right back thoracentesis site covered with bandaid no hematoma or pain noted, left back thoracentesis site covered with bandaid no hematoma EXTREMITIES: Normal range of motion, mild bilateral lower extremity pitting edema. No clubbing or cyanosis. Peripheral pulses intact. ASSESSMENT Atrial tachycardia, currently maintaining sinus mechanism Acute on chronic diastolic heart failure Hyperkalemia History of hypertrophic heart disease Hypertension Diabetes mellitus Dyslipidemia Proximal atrial fibrillation on long-term anticoagulation Chronic kidney disease Severe concentric left ventricular hypertrophy s/p right sided thoracentesis 01/07 with 900mL removed s/p left sided thoracentesis 01/08 with 650mL removed PLAN Continue current cardiac medications Reviewing patient's Echocardiogram and EKG patient with low voltage and severe LVH seen on echo, there is concern for cardiac amyloidosis, we will continue to follow patient as an outpatient for further workup From a cardiology perspective, patient is stable to be discharged home. As an outpatient patient will follow up in the office with Dr. Song Nurse Practitioner note has been reviewed, I agree with a documented findings and plan of care. Patient was seen and examined. Objective - Vital Signs Vital signs: Vital Signs Temp 98 F 01/10/21 10:36 Pulse 70 01/10/21 12:55 Resp 16 01/10/21 12:55 BP 137/71 01/10/21 10:36 Pulse Ox 98 01/10/21 10:36 Intake & Output 01/09/21 01/10/21 01/10/21 18:59 06:59 18:59 Intake Total 1140 240 240 Output Total 400 0 1325 Balance 740 240 -1085 Weight 91.2 kg 91.6 kg Intake: Oral 1140 240 240 Output: Urine 0 525 Stool 400 800 Other: Voiding Method External Catheter Bedside Commode Bedside Commode # Voids 2 1 # Bowel Movements 1 - Labs CBC & Chem 7: 01/06/21 03:00 01/10/21 07:05 Labs: Abnormal Lab Results - Last 24 Hours (Table) 01/09/21 01/09/21 01/10/21 Range/Units 16:53 19:45 06:02 Chloride (98-107) mmol/L Carbon Dioxide (22-30) mmol/L BUN (7-17) mg/dL Creatinine (0.52-1.04) mg/dL POC Glucose (mg/dL) 176 H 172 H 119 H (75-99) mg/dL 01/10/21 Range/Units 07:05 Chloride 97 L (98-107) mmol/L Carbon Dioxide 38 H (22-30) mmol/L BUN 58 H (7-17) mg/dL Creatinine 1.93 H (0.52-1.04) mg/dL POC Glucose (mg/dL) (75-99) mg/dL Microbiology - Last 24 Hours (Table) 01/07/21 16:00 Gram Stain - Final Pleural Fluid Body Fluid Culture - Final Pseudomonas aeruginosa
[2021-01-11] MEDS ORDERED: metOLazone 2.5 MG TAB PO SCH (12:00)
== END 2021-01-10 14:41 | disposition home or self-care (01) | DRG 291 ==
LOC: EC 13:10 → 2SICU 15:57 → 3SCARD 01-07 17:36
PROVIDERS: ADMIT Internal Medicine Geriatric Medicine; ATTEND Internal Medicine Geriatric Medicine
PROC: 5A09357 Assistance with Respiratory Ventilation, Less than 24 Consecutive Hours, Continuous Positive Airway Pressure (ICD-10-PCS; 2021-01-04)
PROC: 0W993ZZ Drainage of Right Pleural Cavity, Percutaneous Approach (ICD-10-PCS; principal; 2021-01-07)
PROC: 0W9B3ZZ Drainage of Left Pleural Cavity, Percutaneous Approach (ICD-10-PCS; 2021-01-08)
PROC: 5A0945A Assistance with Respiratory Ventilation, 24-96 Consecutive Hours, High Flow/Velocity Cannula (ICD-10-PCS; 2021-01-08)
DX: I13.0 Hypertensive heart and chronic kidney disease with heart failure and stage 1 through stage 4 chronic kidney disease, or unspecified chronic kidney disease (principal); J96.21 Acute and chronic respiratory failure with hypoxia; I50.33 Acute on chronic diastolic (congestive) heart failure; I48.20 Chronic atrial fibrillation, unspecified; I48.92 Unspecified atrial flutter; N17.9 Acute kidney failure, unspecified; J91.8 Pleural effusion in other conditions classified elsewhere; I47.1 Supraventricular tachycardia; F33.9 Major depressive disorder, recurrent, unspecified; E85.4 Organ-limited amyloidosis; I42.2 Other hypertrophic cardiomyopathy; J44.9 Chronic obstructive pulmonary disease, unspecified; Z79.01 Long term (current) use of anticoagulants; Z79.4 Long term (current) use of insulin; D64.9 Anemia, unspecified; N18.30 Chronic kidney disease, stage 3 unspecified; K21.9 Gastro-esophageal reflux disease without esophagitis; Z87.891 Personal history of nicotine dependence; Z20.822 Contact with and (suspected) exposure to COVID-19; Z79.82 Long term (current) use of aspirin; E78.5 Hyperlipidemia, unspecified; E11.319 Type 2 diabetes mellitus with unspecified diabetic retinopathy without macular edema; E11.40 Type 2 diabetes mellitus with diabetic neuropathy, unspecified; E66.9 Obesity, unspecified; Z68.32 Body mass index [BMI] 32.0-32.9, adult; G89.29 Other chronic pain; E87.5 Hyperkalemia; M54.5 Low back pain; E11.22 Type 2 diabetes mellitus with diabetic chronic kidney disease; I27.20 Pulmonary hypertension, unspecified; M15.9 Polyosteoarthritis, unspecified; Z90.710 Acquired absence of both cervix and uterus; Z79.899 Other long term (current) drug therapy; I43 Cardiomyopathy in diseases classified elsewhere
CPT/HCPCS: 36415; 71045; 76604; 80048; 80053; 81001; 82607; 82945; 83605; 83615; 83735; 83880; 84145; 84157; 84443; 84484; 85025; 85027; 85379; 85610; 85730; 87070; 87075; 87077; 87186; 87205; 87635; 88108; 88305; 89050; 93005; 94640; 94660; 94760; 96374; 96375; 99291

== ENCOUNTER 2021-01-24 10:15 | Inpatient (IN) | payer OTHER ==
[2021-01-24] MEDS ORDERED: IPRATROPIUM-ALBUTEROL 3 ML NEB INHALATION STA (10:17)
[2021-01-24] MEDS ORDERED: FUROSEMIDE 10 MG/ML 4 ML VIAL IV STA (10:17)
--- NOTE | 2021-01-24 10:26 | ED ---
SOB HPI - General Stated Complaint: PRABHAKAR Time Seen by Provider: 01/24/21 10:15 Source: patient, EMS Mode of arrival: EMS Limitations: no limitations - History of Present Illness Initial Comments: This is a 60-year-old female history of COPD CHF a recent thoracentesis who presents with complaints of several days of shortness of breath which is getting progressively worse until this morning when she states she could not breathe she was noted be hypoxemic per paramedics at did improve after a nonrebreather. No complaints of fevers chills nausea vomiting sweats she does state her abdomen is somewhat distended and this seems to get in the way of her breathing. No cough or phlegm production at this time no chest pain MD Complaint: shortness of breath - Related Data Home Medications Medication Instructions Recorded Confirmed INSULIN LISPRO (humaLOG) [humaLOG] See Protocol SQ AC-TID 08/24/20 01/24/21 Loratadine [Claritin] 10 mg PO DAILY 08/24/20 01/24/21 Montelukast [Singulair] 10 mg PO HS 08/24/20 01/24/21 Nortriptyline [Pamelor] 25 mg PO DAILY 08/24/20 01/24/21 Polyethylene Glycol 3350 [Miralax] 17 gm PO DAILY PRN 08/24/20 01/24/21 Sennosides-Docusate Sodium 1 tab PO BID PRN 08/24/20 01/24/21 [Senokot-S] Insulin Detemir (Levemir) [Levemir] 25 unit SQ HS 01/04/21 01/24/21 Melatonin 6 mg PO HS PRN 01/04/21 01/24/21 Potassium Chloride ER [K-Dur 10] 10 meq PO BID 01/04/21 01/24/21 metOLazone 2.5 mg PO FR@1200 01/04/21 01/24/21 Albuterol Sulfate [Proventil Hfa] 1 - 2 puff INHALATION RT-Q6H PRN 01/24/21 01/24/21 Amiodarone [Cordarone] See Taper PO DIRECTED 01/24/21 01/24/21 Aspirin 81 mg PO DAILY 01/24/21 01/24/21 Furosemide [Lasix] 40 mg PO BID 01/24/21 01/24/21 HYDROcodone/APAP 10-325MG [[place] 1 tab PO Q6H PRN 01/24/21 01/24/21 10-325] Pioglitazone [Actos] 30 mg PO DAILY 01/24/21 01/24/21 Triamcinolone Acetonide 1 applic TOPICAL BID PRN 01/24/21 01/24/21 [Triamcinolone Acetonide 0.025%] Vitamin D3 50,000iu 1,250 mcg PO WE 01/24/21 01/24/21 Previous Rx's Medication Instructions Recorded Apixaban [Eliquis] 5 mg PO BID #60 tab 01/10/21 Atorvastatin [Lipitor] 40 mg PO DAILY #30 tab 01/10/21 Bumetanide [BUMEX] 2 mg PO DAILY #60 tab 01/10/21 Ciprofloxacin HCl [Cipro] 500 mg PO BID 14 Days #28 tab 01/10/21 Ipratropium-Albuterol Nebulize 3 ml INHALATION RT-QID ml 01/10/21 [Duoneb 0.5 mg-3 mg/3 ml Soln] Isosorbide Mononitrate ER [Imdur] 30 mg PO DAILY #30 tab.er.24h 01/10/21 Metoprolol Tartrate [Lopressor] 50 mg PO TID #90 tab 01/10/21 hydrALAZINE HCL [Apresoline] 50 mg PO BID #60 tab 01/10/21 Allergies Allergy/AdvReac Type Severity Reaction Status Date / Time amoxicillin [Amoxicillin] Allergy Rash/Hives Verified 01/24/21 11:41 latanoprost AdvReac blurry Verified 01/24/21 11:41 vision prednisolone AdvReac Swelling Verified 01/24/21 11:41 steroids AdvReac affected Uncoded 01/24/21 11:41 eyes Review of Systems ROS Statement: Those systems with pertinent positive or pertinent negative responses have been documented in the HPI. ROS Other: All systems not noted in ROS Statement are negative. Past Medical History Past Medical History: Asthma, COPD, Diabetes Mellitus, Eye Disorder, GERD/Reflux, Hyperlipidemia, Hypertension, Osteoarthritis (OA) Additional Past Medical History / Comment(s): spondolysis, , blurry vision & eye problems ?related to diabetes History of Any Multi-Drug Resistant Organisms: None Reported Past Surgical History: Back Surgery, Hysterectomy, Orthopedic Surgery Additional Past Surgical History / Comment(s): RT shoulder surgery, LT arthroscopy knee. COLONOSCOPY. BACK SX X 2 Past Anesthesia/Blood Transfusion Reactions: No Reported Reaction Past Psychological History: No Psychological Hx Reported Smoking Status: Former smoker Past Alcohol Use History: Rare Past Drug Use History: None Reported - Past Family History Mother Family Medical History: No Reported History General Exam - General Exam Comments Initial Comments: This is a well-developed well-nourished awake alert oriented 3 female she does demonstrate some audible wheezing Limitations: no limitations General appearance: alert, anxious, in distress Head exam: Present: atraumatic, normocephalic, normal inspection Eye exam: Present: normal appearance, PERRL, EOMI. Absent: scleral icterus, conjunctival injection, periorbital swelling ENT exam: Present: normal exam, mucous membranes moist Neck exam: Present: normal inspection. Absent: tenderness, meningismus, lymphadenopathy Respiratory exam: Present: accessory muscle use, decreased breath sounds. Absent: respiratory distress, wheezes, rales, rhonchi, stridor Cardiovascular Exam: Present: regular rate, normal rhythm, normal heart sounds. Absent: systolic murmur, diastolic murmur, rubs, gallop, clicks GI/Abdominal exam: Present: soft, normal bowel sounds. Absent: distended, tenderness, guarding, rebound, rigid Extremities exam: Present: normal inspection, full ROM, normal capillary refill. Absent: tenderness, pedal edema, joint swelling, calf tenderness Back exam: Present: normal inspection Neurological exam: Present: alert, oriented X3, CN II-XII intact Psychiatric exam: Present: normal affect, normal mood Skin exam: Present: warm, dry, intact, normal color. Absent: rash Course Vital Signs 01/24/21 01/24/21 01/24/21 10:16 10:22 10:56 Temperature 98.1 F Pulse Rate 92 90 Respiratory 32 H 32 H 18 Rate Blood Pressure 174/92 165/77 O2 Sat by Pulse 99 95 Oximetry 01/24/21 01/24/21 01/24/21 11:57 12:39 12:50 Temperature 98.1 F Pulse Rate 88 89 85 Respiratory 18 Rate Blood Pressure 122/95 O2 Sat by Pulse 95 Oximetry 01/24/21 12:59 Temperature Pulse Rate 87 Respiratory 17 Rate Blood Pressure 167/99 O2 Sat by Pulse 100 Oximetry - Reevaluation(s) Reevaluation #1: 01/24/21 13:08 I did reevaluate patient several occasions she is feeling somewhat improved. Medical Decision Making - Medical Decision Making I did discuss findings with the patient as well as Dr. Aleman patient be admitted with cardiology consultation. - Lab Data Result diagrams: 01/24/21 10:29 01/24/21 10:29 Lab Results 01/24/21 01/24/21 01/24/21 Range/Units 10:29 10:29 10:29 WBC 5.3 (3.8-10.6) k/uL RBC 3.73 L (3.80-5.40) m/uL Hgb 9.4 L (11.4-16.0) gm/dL Hct 32.7 L (34.0-46.0) % MCV 87.8 (80.0-100.0) fL MCH 25.1 (25.0-35.0) pg MCHC 28.6 L (31.0-37.0) g/dL RDW 19.5 H (11.5-15.5) % Plt Count 380 (150-450) k/uL MPV 8.6 Neutrophils % 76 % Lymphocytes % 14 % Monocytes % 5 % Eosinophils % 3 % Basophils % 0 % Neutrophils # 4.0 (1.3-7.7) k/uL Lymphocytes # 0.7 L (1.0-4.8) k/uL Monocytes # 0.3 (0-1.0) k/uL Eosinophils # 0.2 (0-0.7) k/uL Basophils # 0.0 (0-0.2) k/uL Hypochromasia Marked Anisocytosis Slight Microcytosis Slight PT 12.8 H (9.0-12.0) sec INR 1.2 H (<1.2) APTT 27.2 (22.0-30.0) sec Sodium 141 (137-145) mmol/L Potassium 4.7 (3.5-5.1) mmol/L Chloride 98 (98-107) mmol/L Carbon Dioxide 36 H (22-30) mmol/L Anion Gap 7 mmol/L BUN 33 H (7-17) mg/dL Creatinine 1.70 H (0.52-1.04) mg/dL Est GFR (CKD-EPI)AfAm 37 (>60 ml/min/1.73 sqM) Est GFR (CKD-EPI)NonAf 32 (>60 ml/min/1.73 sqM) Glucose 182 H (74-99) mg/dL Plasma Lactic Acid Loco (0.7-2.0) mmol/L Calcium 9.3 (8.4-10.2) mg/dL Magnesium 2.3 (1.6-2.3) mg/dL Total Bilirubin 0.4 (0.2-1.3) mg/dL AST 38 H (14-36) U/L ALT 22 (4-34) U/L Alkaline Phosphatase 91 (38-126) U/L Creatine Kinase 63 (30-135) U/L Troponin I (0.000-0.034) ng/mL NT-Pro-B Natriuret Pep pg/mL Total Protein 7.3 (6.3-8.2) g/dL Albumin 3.8 (3.5-5.0) g/dL 01/24/21 01/24/21 01/24/21 Range/Units 10:29 10:29 10:29 WBC (3.8-10.6) k/uL RBC (3.80-5.40) m/uL Hgb (11.4-16.0) gm/dL Hct (34.0-46.0) % MCV (80.0-100.0) fL MCH (25.0-35.0) pg MCHC (31.0-37.0) g/dL RDW (11.5-15.5) % Plt Count (150-450) k/uL MPV Neutrophils % % Lymphocytes % % Monocytes % % Eosinophils % % Basophils % % Neutrophils # (1.3-7.7) k/uL Lymphocytes # (1.0-4.8) k/uL Monocytes # (0-1.0) k/uL Eosinophils # (0-0.7) k/uL Basophils # (0-0.2) k/uL Hypochromasia Anisocytosis Microcytosis PT (9.0-12.0) sec INR (<1.2) APTT (22.0-30.0) sec Sodium (137-145) mmol/L Potassium (3.5-5.1) mmol/L Chloride (98-107) mmol/L Carbon Dioxide (22-30) mmol/L Anion Gap mmol/L BUN (7-17) mg/dL Creatinine (0.52-1.04) mg/dL Est GFR (CKD-EPI)AfAm (>60 ml/min/1.73 sqM) Est GFR (CKD-EPI)NonAf (>60 ml/min/1.73 sqM) Glucose (74-99) mg/dL Plasma Lactic Acid Loco 0.8 (0.7-2.0) mmol/L Calcium (8.4-10.2) mg/dL Magnesium (1.6-2.3) mg/dL Total Bilirubin (0.2-1.3) mg/dL AST (14-36) U/L ALT (4-34) U/L Alkaline Phosphatase (38-126) U/L Creatine Kinase (30-135) U/L Troponin I 0.043 H* (0.000-0.034) ng/mL NT-Pro-B Natriuret Pep 27839 pg/mL Total Protein (6.3-8.2) g/dL Albumin (3.5-5.0) g/dL - EKG Data -: EKG Interpreted by Me EKG shows normal: sinus rhythm EKG Comments: Size of a 90 NM interval 164 QRS 86 QT since QTC 42/491 long QT noted - Radiology Data Radiology results: report reviewed (Imaging reviewed as well as report evidence of CHF. Also small effusions), image reviewed Critical Care Time Critical Care Time: Yes Total Critical Care Time: 32 Critical Care Time: Critical care time including initial presentation with history physical labs x- rays multiple reevaluation of the patient review old charting discussed with the patient regarding findings discussion with the main physician admission orders and documentation of the above Disposition Clinical Impression: Acute respiratory distress syndrome in adult, Systolic congestive heart failure, Elevated troponin, Renal insufficiency Disposition: ADMITTED IP TO THIS HOSP Condition: Fair Referrals: [facility] [Primary Care Provider] - 1-2 days
[2021-01-24 10:42] LABS: Anisocytosis Slight; Basophils % (A) 0 %; Eosinophils # (A) 0.2 k/uL (0-0.7); Eosinophils % (A) 3 %; HCT 32.7 % (34.0-46.0); HGB 9.4 gm/dL (11.4-16.0); Hypochromasia Marked; Lymphocytes # (A) 0.7 k/uL (1.0-4.8); Lymphocytes % (A) 14 %; MCH 25.1 pg (25.0-35.0); MCHC 28.6 g/dL (31.0-37.0); MCV 87.8 fL (80.0-100.0); Mean Platelet Volume 8.6; Microcytosis Slight; Monocytes # (A) 0.3 k/uL (0-1.0); Monocytes % (A) 5 %; Neutrophils % (A) 76 %; Platelet Count 380 k/uL (150-450); RBC 3.73 m/uL (3.80-5.40); RDW 19.5 % (11.5-15.5); WBC 5.3 k/uL (3.8-10.6)
[2021-01-24 10:50] LABS: INR 1.2 (<1.2); Partial Thromboplastin Time 27.2 sec (22.0-30.0); Prothrombin Time 12.8 sec (9.0-12.0)
[2021-01-24 11:05] LABS: Albumin 3.8 g/dL (3.5-5.0); Calcium 9.3 mg/dL (8.4-10.2); Magnesium 2.3 mg/dL (1.6-2.3); Potassium 4.7 mmol/L (3.5-5.1); Total Bilirubin 0.4 mg/dL (0.2-1.3); Total Protein 7.3 g/dL (6.3-8.2)
--- NOTE | 2021-01-24 11:19 | XR ---
EXAMINATION TYPE: XR chest 1V portable DATE OF EXAM: 01/24/2021 COMPARISON: NONE HISTORY: 01/08/2021 FINDINGS: There are bilateral pleural effusions with cardiomegaly and bibasilar infiltrate. There is a diffuse interstitial pattern. No pneumothorax. Findings have progressed from prior exam. IMPRESSION: 1. Interval marked progression of diffuse bilateral pleural-parenchymal changes correlate for CHF wit h pulmonary edema versus diffuse pneumonia.
[2021-01-24] MEDS ORDERED: MELATONIN 3 MG TABLET PO PRN (13:11)
--- NOTE | 2021-01-24 14:03 | P.CRDCN ---
History of Present Illness Consult date: 01/24/21 Reason for Consult (text): Elevated troponin, CHF Chief complaint: progressively worsening shortness of breath History of present illness: A 60-year-old female who was admitted to the emergency department with complaint s of progressively worsening shortness of breath over the last few days which suddenly became worse this morning. She has a history of hypertension, hyperlipidemia and diabetes. History of a cardiac catheterization in 2016 with no evidence of obstructive CAD at that time. She'll history of chronic tobacco use and has very recently stopped smoking. She's had recent multiple admissions to the hospital. She was admitted to [facility] and underwent thoracentesis and cardioversion. She was subsequently readmitted here last month with tachycardia and shortness of breath was noted to be in atrial fibrillation with rapid ventricular response. She was initiated on amiodarone at that time. She also underwent thoracentesis during her previous admission. She and echocardiogram done in October of this year and at that time her ejection fraction was 55-60% with severe pulmonary hypertension measuring 69 mmHg. Over the last few days she's been more short of breath with some tightness in her chest and pressure as well as some abdominal bloating. She denies any clear complaints of orthopnea but does wake up feeling short of breath through the night. Laboratory values on admission showed hemoglobin 9.4, BUN 33, creatinine 1.7, troponin 0.043 and NT proBNP of 13,900 which was previously over 30,000. EKG on admission showed sinus rhythm with prolonged QT interval. Chest x-ray impression interval marked progression of diffuse bilateral pleural parenchymal changes correlate for CHF with pulmonary edema versus diffuse pneumonia of her review of the films this patient has left-sided pleural effusion. She has been initiated on IV Lasix and BiPAP. Upon examination patient appears comfortable. She is able to speak in full sentences but does have some mild dyspnea with talking. She has very trace edema and doesn't feel that that is worse than usual. Denies any chest pain but does feel some pressure in her chest with breathing. Denies any dizziness or lightheadedness. Denies any palpitations or feeling her heart racing. Past Medical History Past Medical History: Asthma, COPD, Diabetes Mellitus, Eye Disorder, GERD/Reflu x, Hyperlipidemia, Hypertension, Osteoarthritis (OA) Additional Past Medical History / Comment(s): spondolysis, , blurry vision & eye problems ?related to diabetes History of Any Multi-Drug Resistant Organisms: None Reported Past Surgical History: Back Surgery, Hysterectomy, Orthopedic Surgery Additional Past Surgical History / Comment(s): RT shoulder surgery, LT arthroscopy knee. COLONOSCOPY. BACK SX X 2 Past Anesthesia/Blood Transfusion Reactions: No Reported Reaction Past Psychological History: No Psychological Hx Reported Smoking Status: Former smoker Past Alcohol Use History: Rare Past Drug Use History: None Reported - Past Family History Mother Family Medical History: No Reported History Medications and Allergies Home Medications Medication Instructions Recorded Confirmed Type INSULIN LISPRO (humaLOG) [humaLOG] See Protocol SQ AC-TID 08/24/20 01/24/21 History Loratadine [Claritin] 10 mg PO DAILY 08/24/20 01/24/21 History Montelukast [Singulair] 10 mg PO HS 08/24/20 01/24/21 History Nortriptyline [Pamelor] 25 mg PO DAILY 08/24/20 01/24/21 History Polyethylene Glycol 3350 [Miralax] 17 gm PO DAILY PRN 08/24/20 01/24/21 History Sennosides-Docusate Sodium 1 tab PO BID PRN 08/24/20 01/24/21 History [Senokot-S] Insulin Detemir (Levemir) [Levemir] 25 unit SQ HS 01/04/21 01/24/21 History Melatonin 6 mg PO HS PRN 01/04/21 01/24/21 History Potassium Chloride ER [K-Dur 10] 10 meq PO BID 01/04/21 01/24/21 History metOLazone 2.5 mg PO FR@1200 01/04/21 01/24/21 History Apixaban [Eliquis] 5 mg PO BID #60 tab 01/10/21 01/24/21 Rx Atorvastatin [Lipitor] 40 mg PO DAILY #30 tab 01/10/21 01/24/21 Rx Bumetanide [BUMEX] 2 mg PO DAILY #60 tab 01/10/21 01/24/21 Rx Ciprofloxacin HCl [Cipro] 500 mg PO BID 14 Days #28 tab 01/10/21 01/24/21 Rx Ipratropium-Albuterol Nebulize 3 ml INHALATION RT-QID ml 01/10/21 01/24/21 Rx [Duoneb 0.5 mg-3 mg/3 ml Soln] Isosorbide Mononitrate ER [Imdur] 30 mg PO DAILY #30 tab.er.24h 01/10/21 01/24/21 Rx Metoprolol Tartrate [Lopressor] 50 mg PO TID #90 tab 01/10/21 01/24/21 Rx hydrALAZINE HCL [Apresoline] 50 mg PO BID #60 tab 01/10/21 01/24/21 Rx Albuterol Sulfate [Proventil Hfa] 1 - 2 puff INHALATION RT-Q6H PRN 01/24/21 01/24/21 History Amiodarone [Cordarone] See Taper PO DIRECTED 01/24/21 01/24/21 History Aspirin 81 mg PO DAILY 01/24/21 01/24/21 History Furosemide [Lasix] 40 mg PO BID 01/24/21 01/24/21 History HYDROcodone/APAP 10-325MG [[place] 1 tab PO Q6H PRN 01/24/21 01/24/21 History 10-325] Pioglitazone [Actos] 30 mg PO DAILY 01/24/21 01/24/21 History Triamcinolone Acetonide 1 applic TOPICAL BID PRN 01/24/21 01/24/21 History [Triamcinolone Acetonide 0.025%] Vitamin D3 50,000iu 1,250 mcg PO WE 01/24/21 01/24/21 History Allergies Allergy/AdvReac Type Severity Reaction Status Date / Time amoxicillin [Amoxicillin] Allergy Rash/Hives Verified 01/24/21 11:41 latanoprost AdvReac blurry Verified 01/24/21 11:41 vision prednisolone AdvReac Swelling Verified 01/24/21 11:41 steroids AdvReac affected Uncoded 01/24/21 11:41 eyes Physical Exam Vitals: Vital Signs Temp Pulse Resp BP Pulse Ox 01/24/21 12:59 87 17 167/99 100 01/24/21 12:50 85 01/24/21 12:39 89 01/24/21 11:57 98.1 F 88 18 122/95 95 01/24/21 10:56 90 18 165/77 95 01/24/21 10:22 32 H 01/24/21 10:16 98.1 F 92 32 H 174/92 99 Intake and Output 01/23/21 01/24/21 01/24/21 22:59 06:59 14:59 Other: Weight 99.337 kg PHYSICAL EXAMINATION: This is a 60-year-old female in no apparent distress at the time of my examination. VITAL SIGNS: Blood pressure 167/99, heart rate 87, respirations 18, temp 98.1F axillary. Patient is 100% % on BiPAP with 50% FiO2. HEENT: Head is atraumatic, normocephalic. Pupils are equal, round. Sclerae anicteric. Conjunctivae are clear. Mucous membranes of the mouth are moist. Neck is supple. There is no elevated jugular venous pressure. No carotid bruit is heard. CHEST EXAMINATION: Diminished bilaterally with a basilar crackles. Respirations even and nonlabored. HEART EXAMINATION: Heart regular, positive S1 and S2. No S3. No S4. No clicks, rubs or murmurs. ABDOMEN: Soft, nontender, mildly distended. Bowel sounds are heard. No organomegaly noted. EXTREMITIES: 2+ peripheral pulses with evidence of trace peripheral edema and no calf tenderness noted. NEUROLOGIC EXAMINATION: Patient is awake, alert and oriented x3. Results 01/24/21 10:29 01/24/21 10:29 Cardiac Enzymes 01/24/21 01/24/21 Range/Units 10:29 10: AST 38 H (14-36) U/L Troponin I 0.043 H* (0.000-0.034) ng/mL Coagulation 01/24/21 Range/Units 10:29 PT 12.8 H (9.0-12.0) sec APTT 27.2 (22.0-30.0) sec CBC 01/24/21 Range/Units 10:29 WBC 5.3 (3.8-10.6) k/uL RBC 3.73 L (3.80-5.40) m/uL Hgb 9.4 L (11.4-16.0) gm/dL Hct 32.7 L (34.0-46.0) % Plt Count 380 (150-450) k/uL Comprehensive Metabolic Panel 01/24/21 Range/Units 10:29 Sodium 141 (137-145) mmol/L Potassium 4.7 (3.5-5.1) mmol/L Chloride 98 (98-107) mmol/L Carbon Dioxide 36 H (22-30) mmol/L BUN 33 H (7-17) mg/dL Creatinine 1.70 H (0.52-1.04) mg/dL Glucose 182 H (74-99) mg/dL Calcium 9.3 (8.4-10.2) mg/dL AST 38 H (14-36) U/L ALT 22 (4-34) U/L Alkaline Phosphatase 91 (38-126) U/L Total Protein 7.3 (6.3-8.2) g/dL Albumin 3.8 (3.5-5.0) g/dL Current Medications Generic Name Dose Route Start Last Admin Trade Name Freq PRN Reason Stop Dose Admin Hydrocodone Bitart/Acetaminophen 1 each 01/24/21 13:11 Hydrocodone/Apap 10-325mg 1 Each Tab PO Q6H PRN Pain Albuterol/Ipratropium 3 ml 01/24/21 16:00 Ipratropium-Albuterol 3 Ml Neb INHALATION RT-QID [facility] Amiodarone HCl 200 mg 01/24/21 13:49 Amiodarone 200 Mg Tab PO DAILY [facility] Apixaban 5 mg 01/24/21 21:00 Apixaban 5 Mg Tab PO BID [facility] Protocol Ciprofloxacin 500 mg 01/24/21 21:00 Ciprofloxacin Hcl 500 Mg Tab PO BID [facility] Furosemide 40 mg 01/24/21 18:00 Furosemide 10 Mg/Ml 4 Ml Vial IV Q8H [facility] Hydralazine HCl 50 mg 01/24/21 21:00 Hydralazine Hcl 50 Mg Tab PO BID [facility] Insulin Aspart 0 unit 01/24/21 17:30 Insulin Aspart (Novolog) 100 Unit/Ml Vial SQ ACHS [facility] Protocol Insulin Detemir 25 unit 01/24/21 21:00 Insulin Detemir (Levemir) 100 Unit/Ml Syr SQ HS [facility] Isosorbide Mononitrate 30 mg 01/25/21 09:00 Isosorbide Mononitrate Er 30 Mg Tab.Er.24h PO DAILY [facility] Loratadine 10 mg 01/25/21 09:00 Loratadine 10 Mg Tab PO DAILY [facility] Melatonin 6 mg 01/24/21 13:11 Melatonin 3 Mg Tablet PO HS PRN Ins[facility] Metolazone 2.5 mg 01/25/21 12:00 Metolazone 2.5 Mg Tab PO FR@1200 [facility] Metoprolol Tartrate 50 mg 01/24/21 16:00 Metoprolol Tartrate 50 Mg Tab PO TID [facility] Montelukast Sodium 10 mg 01/24/21 21:00 Montelukast 10 Mg Tab PO HS [facility] Nortriptyline HCl 25 mg 01/25/21 09:00 Nortriptyline 25 Mg Cap PO DAILY [facility] Pioglitazone HCl 30 mg 01/25/21 09:00 Pioglitazone 30 Mg Tab PO DAILY [facility] Potassium Chloride 10 meq 01/24/21 21:00 Potassium Chloride Er 10 Meq Tab.Er.Prt PO BID [facility] Intake and Output 01/23/21 01/24/21 01/24/21 22:59 06:59 14:59 Other: Weight 99.337 kg Patient Weight 01/25/21 06:59 Weight 99.337 kg 01/24/21 10:29 01/24/21 10:29 Assessment and Plan Assessment: #1 symptoms of progressive dyspnea, HIGH factorial due to diastolic congestive heart failure as well as history of obstructive lung disease and pulmonary hypertension #2 atrial tachycardia, early on anticoagulation as well as amiodarone, maintaining sinus mechanism #3 history of smoking #4 recurrent pleural effusion #5 hypertension #6 diabetes mellitus Plan: From cardiology's perspective continue IV Lasix 40 mg every 8 hours. We will cut down the amiodarone to 200 mg by mouth daily. We will continue to follow the renal function and consider possibly adding Aldactone at a later date. We'll discontinue the aspirin. The patient would likely benefit from switching Actos to another agent. This will be deferred to primary. Will consult pulmonology as patient may require repeat thoracentesis. We'll continue to follow the patient provide further recommendations accordingly. HACKLER DOLL WIGS note has been reviewed, I agree with a documented findings and plan of care. Patient was seen and examined.
[2021-01-24] MEDS ORDERED: SENNOSIDES-DOCUSATE SODIUM 1 EACH TAB PO PRN (14:29)
[2021-01-24] MEDS ORDERED: polyethylene glycoL 3350 17 GM POWD.PACK PO PRN (14:29)
[2021-01-24] MEDS: AMIODARONE 200 MG TAB PO SCH (15:33)
[2021-01-24] MEDS: IPRATROPIUM-ALBUTEROL 3 ML NEB INHALATION SCH ×2 (15:37→19:32)
--- NOTE | 2021-01-24 15:45 | P.CNPUL ---
History of Present Illness Consult date: 01/24/21 Requesting physician: Franko Aleman Reason for consult: dyspnea, hypoxemia, pleural effusion, abnormal CXR/CT Chief complaint: Shortness of breath. History of present illness: Pulmonary/critical care consultation dated 01/24/2021. 60-year-old black female with history of COPD, CHF, chronic atrial fibrillation, pleural effusion, diabetes, as well as gastroesophageal reflux disease, hypertension, hyperlipidemia, and osteoarthritis, who presents to the emergency department on January 24, with complaints of increasing shortness of breath. In addition, she complains of lower extremity edema, and increasing abdominal girth. The patient was seen by me in consultation in the ER on January 04. At t hat time, she came in with similar complaints of shortness of breath. She was much more short of breath at that time, and required BiPAP therapy. Prior to that, she was a [facility], for 5 days, at which time, she had a left- sided thoracentesis with 800 mL removed, and also that time had a cardioversion for atrial fibrillation. During her last admission here, after I saw her in consultation, my partner, did a left-sided thoracentesis and 650 mL was removed. Currently, she is resting comfortably in the room. She is on 6 L nasal cannula. She's not receiving any IV fluids. The patient is getting Lasix 40 mg IV push every 8 hours. White count 5.3, he will 9.4, hematocrit 32.7, and platelet count 3 80,000. PT 12.8 INR 1.2 and PTT 27.2. Sodium potassium chloride normal CO2 36 anion gap 7 BUN 33, and creatinine 1.70. Troponin was 0.043 and the N-terminal proBNP was 13,900. Chest x-ray showed a pattern of diffuse pulmonary edema. She likely has bilateral effusions, left greater than right. Review of Systems REVIEW OF SYSTEMS: CONSTITUTIONAL: Fatigue. NEUROLOGIC: [ Negative.] HEENT: [ Negative.] CARDIAC: Lower extremity edema. PULMONARY: Shortness of breath. GI: Increasing abdominal girth. : [Negative.] RHEUMATOLOGIC: [ Negative.] IMMUNOLOGIC: [ Negative.] ENDOCRINE: [Negative. ] DERMATOLOGIC: [Negative.] Past Medical History Past Medical History: Asthma, COPD, Diabetes Mellitus, Eye Disorder, GERD/Reflux, Hyperlipidemia, Hypertension, Osteoarthritis (OA) Additional Past Medical History / Comment(s): spondolysis, , blurry vision & eye problems ?related to diabetes History of Any Multi-Drug Resistant Organisms: None Reported Past Surgical History: Back Surgery, Hysterectomy, Orthopedic Surgery Additional Past Surgical History / Comment(s): RT shoulder surgery, LT arthroscopy knee. COLONOSCOPY. BACK SX X 2 Past Anesthesia/Blood Transfusion Reactions: No Reported Reaction Past Psychological History: No Psychological Hx Reported Smoking Status: Former smoker Past Alcohol Use History: Rare Additional Past Alcohol Use History / Comment(s): Pt smokes marijuana no occcasion. States one "joint" lasts her a month. Past Drug Use History: None Reported - Past Family History Mother Family Medical History: No Reported History Medications and Allergies Home Medications Medication Instructions Recorded Confirmed Type INSULIN LISPRO (humaLOG) [humaLOG] See Protocol SQ AC-TID 08/24/20 01/24/21 History Loratadine [Claritin] 10 mg PO DAILY 08/24/20 01/24/21 History Montelukast [Singulair] 10 mg PO HS 08/24/20 01/24/21 History Nortriptyline [Pamelor] 25 mg PO DAILY 08/24/20 01/24/21 History Polyethylene Glycol 3350 [Miralax] 17 gm PO DAILY PRN 08/24/20 01/24/21 History Sennosides-Docusate Sodium 1 tab PO BID PRN 08/24/20 01/24/21 History [Senokot-S] Insulin Detemir (Levemir) [Levemir] 25 unit SQ HS 01/04/21 01/24/21 History Melatonin 6 mg PO HS PRN 01/04/21 01/24/21 History Potassium Chloride ER [K-Dur 10] 10 meq PO BID 01/04/21 01/24/21 History metOLazone 2.5 mg PO FR@1200 01/04/21 01/24/21 History Apixaban [Eliquis] 5 mg PO BID #60 tab 01/10/21 01/24/21 Rx Atorvastatin [Lipitor] 40 mg PO DAILY #30 tab 01/10/21 01/24/21 Rx Bumetanide [BUMEX] 2 mg PO DAILY #60 tab 01/10/21 01/24/21 Rx Ciprofloxacin HCl [Cipro] 500 mg PO BID 14 Days #28 tab 01/10/21 01/24/21 Rx Ipratropium-Albuterol Nebulize 3 ml INHALATION RT-QID ml 01/10/21 01/24/21 Rx [Duoneb 0.5 mg-3 mg/3 ml Soln] Isosorbide Mononitrate ER [Imdur] 30 mg PO DAILY #30 tab.er.24h 01/10/21 01/24/21 Rx Metoprolol Tartrate [Lopressor] 50 mg PO TID #90 tab 01/10/21 01/24/21 Rx hydrALAZINE HCL [Apresoline] 50 mg PO BID #60 tab 01/10/21 01/24/21 Rx Albuterol Sulfate [Proventil Hfa] 1 - 2 puff INHALATION RT-Q6H PRN 01/24/21 01/24/21 History Amiodarone [Cordarone] See Taper PO DIRECTED 01/24/21 01/24/21 History Aspirin 81 mg PO DAILY 01/24/21 01/24/21 History Furosemide [Lasix] 40 mg PO BID 01/24/21 01/24/21 History HYDROcodone/APAP 10-325MG [[place] 1 tab PO Q6H PRN 01/24/21 01/24/21 History 10-325] Pioglitazone [Actos] 30 mg PO DAILY 01/24/21 01/24/21 History Triamcinolone Acetonide 1 applic TOPICAL BID PRN 01/24/21 01/24/21 History [Triamcinolone Acetonide 0.025%] Vitamin D3 50,000iu 1,250 mcg PO WE 01/24/21 01/24/21 History Allergies Allergy/AdvReac Type Severity Reaction Status Date / Time amoxicillin [Amoxicillin] Allergy Rash/Hives Verified 01/24/21 11:41 latanoprost AdvReac blurry Verified 01/24/21 11:41 vision prednisolone AdvReac Swelling Verified 01/24/21 11:41 steroids AdvReac affected Uncoded 01/24/21 11:41 eyes Physical Exam Osteopathic Statement: *. No significant issues noted on an osteopathic structural exam other than those noted in the History and Physical/Consult. Vitals: Vital Signs Temp Pulse Pulse Resp BP BP Pulse Ox 01/24/21 15:02 97.9 F 85 20 167/83 80 L 01/24/21 14:11 97.8 F 82 20 169/95 98 01/24/21 12:59 87 17 167/99 100 01/24/21 12:50 85 01/24/21 12:39 89 01/24/21 11:57 98.1 F 88 18 122/95 95 01/24/21 10:56 90 18 165/77 95 01/24/21 10:22 32 H 01/24/21 10:16 98.1 F 92 32 H 174/92 99 Intake and Output 01/24/21 01/24/21 01/24/21 06:59 14:59 22:59 Intake Total 100 Balance 100 Intake: Oral 100 Other: Weight 99.337 kg 99.337 kg No acute distress, oriented 3. Currently on 6 L nasal cannula. No accessory muscle use or conversational dyspnea. HEENT examination is grossly unremarkable. Neck supple. Full range of motion. No adenopathy thyromegaly or neck vein distention. Cardiovascular examination reveals regular rhythm rate. S1-S2 normal. No S3 or S4. No discernible murmur noted. Heart sounds distant. Heart rate 84 bpm. Lungs reveal bibasilar crackles. No wheezes or rhonchi. Breath sounds are diminished bilaterally. Abdomen distended, but soft. Bowel sounds are noted. No masses. Extremities are intact. Minimal edema. No cyanosis or clubbing. Skin is without rash or lesion. Neurologic examination is brief but nonfocal. Results - Laboratory Findings CBC and BMP: 01/24/21 10:29 01/24/21 10:29 PT/INR, D-dimer PT 12.8 sec (9.0-12.0) H 01/24/21 10:29 INR 1.2 (<1.2) H 01/24/21 10:29 Abnormal lab findings: Abnormal Labs 01/24/21 01/24/21 01/24/21 10:29 10:29 10:29 RBC 3.73 L Hgb 9.4 L Hct 32.7 L MCHC 28.6 L RDW 19.5 H Lymphocytes # 0.7 L PT 12.8 H INR 1.2 H Carbon Dioxide 36 H BUN 33 H Creatinine 1.70 H Glucose 182 H AST 38 H Troponin I 01/24/21 10:29 RBC Hgb Hct MCHC RDW Lymphocytes # PT INR Carbon Dioxide BUN Creatinine Glucose AST Troponin I 0.043 H* - Diagnostic Findings Chest x-ray: image reviewed Assessment and Plan Assessment: Acute hypoxemic respiratory failure, secondary to CHF. Recent admission to [facility] for 5 days, status post cardioversion and left-sided thoracentesis with 800 mL removed. Status post thoracentesis on January 08, by my partner, 650 mL removed, left side. History of acute kidney injury. History of diastolic CHF. History of mild COPD. History of sleep apnea syndrome. History of hypertension. History of hyperlipidemia. History of diabetes mellitus. History of prior tobacco use. Diabetic neuropathy and diabetic retinopathy. Gastroesophageal reflux disease. History of osteoarthritis. Plan: Plan dated 01/24/2021. Currently the patient's on 6 L nasal cannula. Her Eliquis has been restarted. The patient is also getting DuoNeb updrafts, 4 times a day and when necessary. The patient's getting Lasix 40 mg IV push every 8 hours. We'll repeat a chest x-ray in the morning. No additional recommendations are made. Prognosis is guarded. We will continue to follow make recommendations were appropriate. The patient may or may not benefit from thoracentesis in the future. Time with Patient: Greater than 30
[2021-01-24 16:29] LABS: Glucose,Whole Blood 90 mg/dL (75-99)
[2021-01-24] MEDS: INSULIN ASPART (NovoLOG) 100 UNIT/ML VIAL SQ SCH ×2 (17:08→21:13)
[2021-01-24] MEDS: METOPROLOL TARTRATE 50 MG TAB PO SCH ×2 (17:14→20:55)
[2021-01-24] MEDS: FUROSEMIDE 10 MG/ML 4 ML VIAL IV SCH (17:14)
--- NOTE | 2021-01-24 18:34 | P.HPIM ---
History of Present Illness H&P Date: 01/24/21 Chief Complaint: Severe dyspnea and shortness of breath, acute on chronic re spiratory failur HISTORY OF PRESENT ILLNESS This is a 60-year-old female patient at [facility] with past medical history significant for COPD, diabetes mellitus type 2, gastroesophageal reflux disease, hypertension, hyperlipidemia, generalized osteoarthritis, remote h istory of tobacco use and dependence. Patient was hospitalized recently at [facility] for respiratory failure found to have left-sided pleural effusion thoracentesis of 800 mL was done also patient ended up going for cardioversion for chronic A. fib she was sent home after been in for 5 days. Patient was rehospitalized at [facility] between 723 to 01/10/2021 for A. fib with RVR, respiratory failure with non-STEMI and CHF exacerbation. Patient was seen cardiology and pulmonary done well she was kept on BiPAP for a good part of her hospitalization at the time. Patient was kept on heavy doses of IV diuretics. On 01/08: Patient had thoracentesis of the left side for 650 mL was mostly transudate cytology was negative for CVA. With her symptoms been well controlled time patient was sent home on Bumex 2 mg daily along with ciprofloxacin 500 mg twice a day for 7 days was to be kept on Eliquis along with metoprolol titrate 50 mg 3 times a day which kept her pulse rate well controlled. Patient presented to [facility] today 01/24 2021 with severe dyspnea and shortness of breath has been progressively getting worse for the last 3 days she was quite hypoxic when elevator technician was at the scene. Patient ended up coming to the emergency department require to go on BiPAP for the whole time after 2 or 3 round of respiratory treatment along with titrating her O2 on BiPAP Patient Started Getting Slightly Better. Patient Was Giving to Dose of IV Diuretics Which Diabetes Quite but at the Time. Chest X-Ray Showed Sign and Symptom of Congestive Heart Failure Also Chest X-Ray Showed? Off Infiltrate in the Base Which Has Not Been Clear Well from Her Last Hospitalization. Patient Be Started on IV Antibiotics besides Steroid and BiPAP We'll Consult Cardiology and Pulmonary. Her Troponin Was Mildly Elevated Patient Will Be Diagnosed with Non-ST SD till Proven Otherwise. Surprisingly her kidney function is much better than last time with creatinine 1.7 and GFR is running at 37. BNP was very high at 13 900 patient will be continue on have eaten diuretics IV. REVIEW OF SYSTEMS Constitutional: No fever, no chills, no night sweats. No weight change. Reports weakness, Reportsfatigue Reports lethargy. No daytime sleepiness. EENT: No headache. No blurred vision or double vision, no loss of vision. No loss of Hearing, no ringing in the ears, no dizziness. No nasal drainage or congestion. No epistaxis. No sore throat. Lungs: Reports shortness of breath, cough, no sputum production. No wheezing. Reports shortness of breath with exertion. Cardiovascular: No chest pain, reports lower extremity edema. No palpitations. No paroxysmal nocturnal dyspnea. No orthopnea. No lightheadedness or dizziness. No syncopal episodes. Abdominal: No abdominal pain. No nausea, vomiting. No diarrhea. No constipation. No bloody or tarry stools. No loss of appetite. Genitourinary: No dysuria, increased frequency, urgency. No urinary retention. Musculoskeletal: No myalgias. Reports muscle weakness, Reports gait dysfunction, no frequent falls. No back pain. No neck pain. Integumentary: No wounds, no lesions. No rash or pruritus. Neurologic: No aphasia. No facial droop. Reports change in mentation. No head injury. No headache. No paralysis. No paresthesia. Psychiatric: No depression. No anxiety. Endocrine: No abnormal blood sugars. No weight change. SOCIAL HISTORY Patient is a smoker of 4-5 cigarettes per day for 30 years. She has recently cut down to 2-3 cigarettes per day with plan for smoking cessation. She drinks alcohol rarely. No illicit drug use. She lives alone and her sister is her caregiver. She does not have oxygen, CPAP at home. She does have a nebulizer. She does not utilize aid for ambulation. FAMILY HISTORY Mother at age 63 from COPD. Father is alive the patient does not know his medical history. She has one stepbrother. Patient has 3 sisters. One sister has diabetes type 2, one sister has diabetes type 1 and one sister has no major medical problems. Patient's 3 daughters with no major medical problems. PHYSICAL EXAMINATION Gen: This priscila 60-year-old -[place] female. She isthe third floor in her own bed off BiPAP on 3 L of O2. Seems to be comfortable. HEENT: Head is atraumatic, normocephalic. Pupils equal, round. Sclerae is anicteric. NECK: Supple. No JVD. No lymphadenopathy. No thyromegaly. LUNGS: reveals diminished bilaterally, few expiratory wheeze. Accessory muscle usage No intercostal retractions. HEART: Regular rate and rhythm. No murmur. ABDOMEN: Soft. Bowel sounds are present. No masses. No tenderness. Hyatt catheter with clear santo urine. EXTREMITIES: 1+ bilateral pedal edema, edema to the right thigh. Dorsalis pedis +2 bilaterally. No calf tenderness. NEUROLOGICAL: Patient is awake, oriented to person and place, able to nod to answer simple questions. No focal neuro deficits. ASSESSMENT AND PLAN 1. Acute on chronic respiratory failure secondary to acute diastolic heart failure. Patient is continued on BiPAP and followed by pulmonary medicine/latin american studies director. 2. acute on chronic diastolic congestive heart failure: A Chin will be on IV Lasix, fluid restrain, intake and output cardiology consultation might do another echocardiogram this time. 3. Acute kidney injury with oliguria. Nephrology consult appreciated. 4. Troponin elevation likely due to acute on chronic kidney failure. Cardiology consult appreciated. 5. COPD: With slightly but worsening symptoms, will continue patient on albuterol/ipratropium nebulizer along with multiple a cast and steroid nebulizer. Sodium Medrol 40 mg IV every 8 to be done as well. 6. A. fib with RVR: Patient had post cardioversion, remain on metoprolol and amiodarone will continue Eliquis as well. 7. Hypertension. Continue Lopressor 50 mg twice daily, hydralazine 10 mg IV push every 6 hours as needed. 8. Diabetes mellitus type 2. Continue NovoLog scale before meals and at bedtime. Hold Actos 30 mg daily. 9. Diabetic neuropathy. Hold gabapentin. No need for any pain management this point. 10. Recurrent depression. Continue nortriptyline 25 mg daily. 11 hyperlipidemia: Continue patient on Lipitor 40 mg a day. 12 chronic pain syndrome: Has been on hydrocodone continue medication. 13 DVT prophylaxis: Patient remain on Eliquis. 14 GI prophylaxis: Patient be on Pepcid 20 mg daily. CODE STATUS: Full code Patient will be admitted to the hospital for a minimum of 2 night stay. Past Medical History Past Medical History: Asthma, COPD, Diabetes Mellitus, Eye Disorder, GERD/Reflux, Hyperlipidemia, Hypertension, Osteoarthritis (OA) Additional Past Medical History / Comment(s): spondolysis, , blurry vision & eye problems ?related to diabetes History of Any Multi-Drug Resistant Organisms: None Reported Past Surgical History: Back Surgery, Hysterectomy, Orthopedic Surgery Additional Past Surgical History / Comment(s): RT shoulder surgery, LT arthroscopy knee. COLONOSCOPY. BACK SX X 2 Past Anesthesia/Blood Transfusion Reactions: No Reported Reaction Past Psychological History: No Psychological Hx Reported Smoking Status: Former smoker Past Alcohol Use History: Rare Past Drug Use History: None Reported - Past Family History Mother Family Medical History: No Reported History Medications and Allergies Home Medications Medication Instructions Recorded Confirmed Type INSULIN LISPRO (humaLOG) [humaLOG] See Protocol SQ AC-TID 08/24/20 01/24/21 History Loratadine [Claritin] 10 mg PO DAILY 08/24/20 01/24/21 History Montelukast [Singulair] 10 mg PO HS 08/24/20 01/24/21 History Nortriptyline [Pamelor] 25 mg PO DAILY 08/24/20 01/24/21 History Polyethylene Glycol 3350 [Miralax] 17 gm PO DAILY PRN 08/24/20 01/24/21 History Sennosides-Docusate Sodium 1 tab PO BID PRN 08/24/20 01/24/21 History [Senokot-S] Insulin Detemir (Levemir) [Levemir] 25 unit SQ HS 01/04/21 01/24/21 History Melatonin 6 mg PO HS PRN 01/04/21 01/24/21 History Potassium Chloride ER [K-Dur 10] 10 meq PO BID 01/04/21 01/24/21 History metOLazone 2.5 mg PO FR@1200 01/04/21 01/24/21 History Apixaban [Eliquis] 5 mg PO BID #60 tab 01/10/21 01/24/21 Rx Atorvastatin [Lipitor] 40 mg PO DAILY #30 tab 01/10/21 01/24/21 Rx Bumetanide [BUMEX] 2 mg PO DAILY #60 tab 01/10/21 01/24/21 Rx Ciprofloxacin HCl [Cipro] 500 mg PO BID 14 Days #28 tab 01/10/21 01/24/21 Rx Ipratropium-Albuterol Nebulize 3 ml INHALATION RT-QID ml 01/10/21 01/24/21 Rx [Duoneb 0.5 mg-3 mg/3 ml Soln] Isosorbide Mononitrate ER [Imdur] 30 mg PO DAILY #30 tab.er.24h 01/10/21 01/24/21 Rx Metoprolol Tartrate [Lopressor] 50 mg PO TID #90 tab 01/10/21 01/24/21 Rx hydrALAZINE HCL [Apresoline] 50 mg PO BID #60 tab 01/10/21 01/24/21 Rx Albuterol Sulfate [Proventil Hfa] 1 - 2 puff INHALATION RT-Q6H PRN 01/24/21 01/24/21 History Amiodarone [Cordarone] See Taper PO DIRECTED 01/24/21 01/24/21 History Aspirin 81 mg PO DAILY 01/24/21 01/24/21 History Furosemide [Lasix] 40 mg PO BID 01/24/21 01/24/21 History HYDROcodone/APAP 10-325MG [[place] 1 tab PO Q6H PRN 01/24/21 01/24/21 History 10-325] Pioglitazone [Actos] 30 mg PO DAILY 01/24/21 01/24/21 History Triamcinolone Acetonide 1 applic TOPICAL BID PRN 01/24/21 01/24/21 History [Triamcinolone Acetonide 0.025%] Vitamin D3 50,000iu 1,250 mcg PO WE 01/24/21 01/24/21 History Allergies Allergy/AdvReac Type Severity Reaction Status Date / Time amoxicillin [Amoxicillin] Allergy Rash/Hives Verified 01/24/21 11:41 latanoprost AdvReac blurry Verified 01/24/21 11:41 vision prednisolone AdvReac Swelling Verified 01/24/21 11:41 steroids AdvReac affected Uncoded 01/24/21 11:41 eyes Physical Exam Vitals: Vital Signs Temp Pulse Resp BP Pulse Ox 01/24/21 12:59 87 17 167/99 100 01/24/21 12:50 85 01/24/21 12:39 89 01/24/21 11:57 98.1 F 88 18 122/95 95 01/24/21 10:56 90 18 165/77 95 01/24/21 10:22 32 H 01/24/21 10:16 98.1 F 92 32 H 174/92 99 Intake and Output 01/23/21 01/24/21 01/24/21 22:59 06:59 14:59 Other: Weight 99.337 kg Results CBC & Chem 7: 01/24/21 10:29 01/24/21 10:29 Labs: Abnormal Lab Results - Last 24 Hours (Table) 01/24/21 01/24/21 01/24/21 Range/Units 10:29 10:29 10:29 RBC 3.73 L (3.80-5.40) m/uL Hgb 9.4 L (11.4-16.0) gm/dL Hct 32.7 L (34.0-46.0) % MCHC 28.6 L (31.0-37.0) g/dL RDW 19.5 H (11.5-15.5) % Lymphocytes # 0.7 L (1.0-4.8) k/uL PT 12.8 H (9.0-12.0) sec INR 1.2 H (<1.2) Carbon Dioxide 36 H (22-30) mmol/L BUN 33 H (7-17) mg/dL Creatinine 1.70 H (0.52-1.04) mg/dL Glucose 182 H (74-99) mg/dL AST 38 H (14-36) U/L Troponin I (0.000-0.034) ng/mL 01/24/21 Range/Units 10:29 RBC (3.80-5.40) m/uL Hgb (11.4-16.0) gm/dL Hct (34.0-46.0) % MCHC (31.0-37.0) g/dL RDW (11.5-15.5) % Lymphocytes # (1.0-4.8) k/uL PT (9.0-12.0) sec INR (<1.2) Carbon Dioxide (22-30) mmol/L BUN (7-17) mg/dL Creatinine (0.52-1.04) mg/dL Glucose (74-99) mg/dL AST (14-36) U/L Troponin I 0.043 H* (0.000-0.034) ng/mL
[2021-01-24 19:54] LABS: Glucose,Whole Blood 150 mg/dL (75-99)
[2021-01-24] MEDS: MONTELUKAST 10 MG TAB PO SCH (20:54)
[2021-01-24] MEDS: APIXABAN 5 MG TAB PO SCH (20:54)
[2021-01-24] MEDS: CIPROFLOXACIN HCL 500 MG TAB PO SCH (20:54)
[2021-01-24] MEDS: POTASSIUM CHLORIDE ER 10 MEQ TAB.ER.PRT PO SCH (20:55)
[2021-01-24] MEDS ORDERED: AMIODARONE 200 MG TAB PO SCH (21:00)
[2021-01-24] MEDS ORDERED: hydrALAZINE HCL 50 MG TAB PO SCH (21:00)
[2021-01-24] MEDS ORDERED: INSULIN DETEMIR (LEVEMIR) 100 UNIT/ML SYR SQ SCH (21:00)
[2021-01-24] MEDS ORDERED: FUROSEMIDE 40 MG TAB PO SCH (21:00)
[2021-01-24] MEDS: HYDROcodone/APAP 10-325MG 1 EACH TAB PO PRN (23:46)
[2021-01-25] MEDS: FUROSEMIDE 10 MG/ML 4 ML VIAL IV SCH ×3 (02:53→20:51)
[2021-01-25 06:01] LABS: Glucose,Whole Blood 44 mg/dL (75-99)
[2021-01-25 06:21] LABS: Glucose,Whole Blood 73 mg/dL (75-99)
--- NOTE | 2021-01-25 07:21 | XR ---
EXAMINATION TYPE: XR chest 2V DATE OF EXAM: 01/25/2021 COMPARISON: 01/25/2020 INDICATION: CHF TECHNIQUE: Frontal and lateral views of the chest are obtained. FINDINGS: The heart size is moderately prominent. The pulmonary vasculature is normal. Right lower lobe consolidation is present. The more diffuse infiltrate in the right lower lobe is res olving. Moderate left pleural effusion is present. IMPRESSION: 1. Improving right lower lobe infiltrate. Consolidation remains present. Correlate for pneumonia. Con tinued follow-up is recommended. 2. Moderate left pleural effusion. 3. Cardiomegaly
[2021-01-25] MEDS: INSULIN ASPART (NovoLOG) 100 UNIT/ML VIAL SQ SCH ×4 (07:40→20:54)
[2021-01-25] MEDS: IPRATROPIUM-ALBUTEROL 3 ML NEB INHALATION SCH ×4 (08:06→20:34)
[2021-01-25] MEDS: hydrALAZINE HCL 50 MG TAB PO SCH ×3 (08:57→20:54)
[2021-01-25] MEDS: APIXABAN 5 MG TAB PO SCH ×2 (08:57→20:50)
[2021-01-25] MEDS: CIPROFLOXACIN HCL 500 MG TAB PO SCH ×2 (08:58→20:50)
[2021-01-25] MEDS: POTASSIUM CHLORIDE ER 10 MEQ TAB.ER.PRT PO SCH ×2 (08:58→20:51)
[2021-01-25] MEDS: ISOSORBIDE MONONITRATE ER 30 MG TAB.ER.24H PO SCH (08:58)
[2021-01-25] MEDS: METOPROLOL TARTRATE 50 MG TAB PO SCH ×3 (08:58→20:51)
[2021-01-25] MEDS: LORATADINE 10 MG TAB PO SCH (08:58)
[2021-01-25] MEDS: ATORVASTATIN 40 MG TAB PO SCH (08:58)
[2021-01-25] MEDS: AMIODARONE 200 MG TAB PO SCH (08:58)
[2021-01-25] MEDS: PANTOPRAZOLE 40 MG TABLET PO SCH (08:58)
[2021-01-25] MEDS ORDERED: ASPIRIN 81 MG PO SCH (09:00)
[2021-01-25] MEDS ORDERED: PIOGLITAZONE 30 MG TAB PO SCH (09:00)
[2021-01-25] MEDS ORDERED: ASPIRIN 325 MG TAB PO SCH (09:00)
[2021-01-25] MEDS: NICOTINE 14MG/24HR PATCH TRANSDERM SCH (09:00)
[2021-01-25] MEDS: NORTRIPTYLINE 25 MG CAP PO SCH (09:55)
[2021-01-25 10:33] VITALS: BMI 31.6
--- NOTE | 2021-01-25 11:28 | P.PN ---
Subjective Progress Note Date: 01/25/21 60-year-old black female with history of COPD, CHF, chronic atrial fibrillation, pleural effusion, diabetes, as well as gastroesophageal reflux disease, hypertension, hyperlipidemia, and osteoarthritis, who presents to the emergency department on January 24, with complaints of increasing shortness of breath. In addition, she complains of lower extremity edema, and increasing abdominal girth. The patient was seen by me in consultation in the ER on January 04. At that time, she came in with similar complaints of shortness of breath. She was much more short of breath at that time, and required BiPAP therapy. Prior to that, she was a [facility], for 5 days, at which time, she had a left- sided thoracentesis with 800 mL removed, and also that time had a cardioversion for atrial fibrillation. During her last admission here, after I saw her in consultation, my partner, did a left-sided thoracentesis and 650 mL was removed. Currently, she is resting comfortably in the room. She is on 6 L nasal cannula. She's not receiving any IV fluids. The patient is getting Lasix 40 mg IV push every 8 hours. White count 5.3, he will 9.4, hematocrit 32.7, and platelet count 3 80,000. PT 12.8 INR 1.2 and PTT 27.2. Sodium potassium chloride normal CO2 36 anion gap 7 BUN 33, and creatinine 1.70. Troponin was 0.043 and the N-terminal proBNP was 13,900. Chest x-ray showed a pattern of diffuse pulmonary edema. She likely has bilateral effusions, left greater than right. The patient is seen today 01/25/2021 in follow-up on the selective care unit. She is currently resting quite comfortably in bed. Awake and alert in no acute distress. Maintaining good O2 saturations in the upper 90s on 4 L/m per nasal cannula. Afebrile. Chest x-ray reveals improving right lower lobe infiltrate. Moderate left-sided pleural effusion stable. Cardiomegaly. Remains on IV diuretics. Kaylin on bronchodilators. She is anticoagulated with Eliquis. Antibiotics in the form of Cipro. NicoDerm patches in place. Objective - Vital Signs Vital signs: Vital Signs Temp 97.5 F L 01/25/21 08:53 Pulse 59 L 08/13/21 08:53 Resp 18 01/25/21 08:53 BP 168/82 01/25/21 08:53 Pulse Ox 98 01/25/21 08:53 Intake & Output 01/24/21 01/25/21 01/25/21 18:59 06:59 18:59 Intake Total 340 360 Output Total 300 150 200 Balance 40 -150 160 Weight 99.337 kg 89 kg 89 kg Intake: Oral 340 360 Output: Urine 300 150 200 - Exam GENERAL EXAM: Alert, pleasant 60-year-old female patient, on 4 L nasal cannula, comfortable in no apparent distress. HEAD: Normocephalic. EYES: Normal reaction of pupils, equal size. NOSE: Clear with pink turbinates. THROAT: No erythema or exudates. NECK: No masses, no JVD. CHEST: No chest wall deformity. LUNGS: Equal air entry with crackles in the posterior bases left greater than right, dullness left base CVS: S1 and S2 normal with no audible murmur, regular rhythm. ABDOMEN: No hepatosplenomegaly, normal bowel sounds, no guarding or rigidity. SPINE: No scoliosis or deformity SKIN: No rashes CENTRAL NERVOUS SYSTEM: No focal deficits, tone is normal in all 4 extremities. EXTREMITIES: There is 1+ peripheral edema. No clubbing, no cyanosis. Peripheral pulses are intact. - Labs CBC & Chem 7: 01/24/21 10:29 01/24/21 10:29 Labs: Abnormal Lab Results - Last 24 Hours (Table) 01/24/21 01/24/21 01/25/21 Range/Units 10:29 19:53 05:57 POC Glucose (mg/dL) 150 H 44 L (75-99) mg/dL Troponin I 0.043 H* (0.000-0.034) ng/mL 01/25/21 Range/Units 06:20 POC Glucose (mg/dL) 73 L (75-99) mg/dL Troponin I (0.000-0.034) ng/mL Assessment and Plan Assessment: 1 Acute hypoxemic respiratory failure, secondary to acute exacerbation of diastolic CHF. 2 Recent admission to [facility] for 5 days, status post cardioversion and left-sided thoracentesis with 800 mL removed. 3 Status post thoracentesis on December with 650 mL removed, left side. 4 History of acute kidney injury. 5 History of diastolic CHF. 6 History of mild COPD. 7 History of sleep apnea syndrome. 8 History of hypertension. 9 History of hyperlipidemia. 10 History of diabetes mellitus. 11 History of prior tobacco use. 12 Diabetic neuropathy and diabetic retinopathy. 13 Gastroesophageal reflux disease. 14 History of osteoarthritis. 15 History of atrial flutter, anticoagulated with Eliquis Plan: The patient was seen and evaluated by Dr. Dexter Currently stable from the pulmonary standpoint No plans for thoracentesis at this time Continue IV diuretics Titrate down the FiO2 as tolerated We will continue to follow I, the cosigning physician, performed a history & physical examination of the patient. Lungs sounds crackles in the bases left greater than right, dullness on the left Maintaining good O2 saturations in the 90s on 4 L/m per nasal cannula. I discussed the assessment and plan of care with my nurse practitioner, Delmy Harrington. I attest to the above note as dictated by her.
[2021-01-25 11:38] LABS: Glucose,Whole Blood 88 mg/dL (75-99)
--- NOTE | 2021-01-25 11:51 | PN ---
PROGRESS NOTE Mrs. Rinaldi is a 60-year-old female with known history of chronic tobacco use in the past, history of atrial arrhythmia, history of congestive heart failure with preserved systolic function, history of hypertension and diabetes mellitus, and no evidence of obstructive coronary artery disease. She presented to the hospital yesterday with symptoms of progressive dyspnea. She was in the hospital here recently and underwent thoracentesis; and prior to that she underwent thoracentesis at [facility]. She is feeling better this morning. Her breathing is stable. She denies any chest pain. Overall improved compared to yesterday. She denies any dizziness or palpitation. She denies any nausea. She continues to be at this time on amiodarone 200 mg daily, Eliquis 5 mg twice a day, Lipitor 40 mg daily, furosemide 40 mg IV q.8 hours, insulin, isosorbide mononitrate 30 mg daily, metoprolol tartrate 50 mg 3 times a day, Actos. PHYSICAL EXAMINATION: Blood pressure remains elevated, running in the 150s to 160 with a heart rate in the 60s. LUNGS: Decreased breath sounds at the bases, more on the left side, with dullness. HEART: Regular rate and rhythm. S1, S2. No S3, with systolic murmur. No diastolic murmur. ABDOMEN: Soft, nontender. EXTREMITIES: No edema. Chest x-ray revealed left-sided pleural effusion. Her BUN and creatinine were 33 and 1.7, hemoglobin of 9.4. Lab data from this morning are pending. IMPRESSION: 1. Symptoms of progressive dyspnea on exertion with congestive heart failure with preserved systolic function and a prior history of chronic obstructive lung disease. 2. Recurrent pleural effusion. 3. Acute kidney injury. 4. History of obstructive sleep apnea. 5. Hypertension. 6. Hyperlipidemia. 7. Diabetes mellitus. RECOMMENDATIONS: I will decrease the dose of her IV Lasix, follow her renal function. I will increase the dose of hydralazine to optimize her blood pressure control. Will follow her chest x-ray to see if thoracentesis will be needed. MMODL / IJN: [id number] /
[2021-01-25] MEDS ORDERED: metOLazone 2.5 MG TAB PO SCH (12:00)
--- NOTE | 2021-01-25 14:09 | P.PN ---
Subjective Progress Note Date: 01/25/21 HISTORY OF PRESENT ILLNESS This is a 60-year-old female patient at [facility] with past medical history significant for COPD, diabetes mellitus type 2, gastroesophageal reflux disease, hypertension, hyperlipidemia, generalized osteoarthritis, remote history of tobacco use and dependence. Patient was hospitalized recently at [facility] for respiratory failure found to have left-sided pleural effusion thoracentesis of 800 mL was done also patient ended up going for cardioversion for chronic A. fib she was sent home after been in for 5 days. Patient was rehospitalized at [facility] between 723 to 01/10/2021 for A. fib with RVR, respiratory failure with non-STEMI and CHF exacerbation. Patient was seen cardiology and pulmonary done well she was kept on BiPAP for a good part of her hospitalization at the time. Patient was kept on heavy doses of IV diuretics. On 01/08: Patient had thoracentesis of the left side for 650 mL was mostly transudate cytology was negative for CVA. With her symptoms been well controlled time patient was sent home on Bumex 2 mg daily along with ciprofloxacin 500 mg twice a day for 7 days was to be kept on Eliquis along with metoprolol titrate 50 mg 3 times a day which kept her pulse rate well controlled. Patient presented to [facility] today 01/24 2021 with severe dyspnea and shortness of breath has been progressively getting worse for the last 3 days she was quite hypoxic when lean process deployment consultant was at the scene. Patient ended up coming to the emergency department require to go on BiPAP for the whole time after 2 or 3 round of respiratory treatment along with titrating her O2 on BiPAP Patient Started Getting Slightly Better. Patient Was Giving to Dose of IV Diuretics Which Diabetes Quite but at the Time. Chest X-Ray Showed Sign and Symptom of Congestive Heart Failure Also Chest X-Ray Showed? Off Infiltrate in the Base Which Has Not Been Clear Well from Her Last Hospitalization. Patient Be Started on IV Antibiotics besides Steroid and BiPAP We'll Consult Cardiology and Pulmonary. Her Troponin Was Mildly Elevated Patient Will Be Diagnosed with Non-ST OK till Proven Otherwise. Surprisingly her kidney function is much better than last time with creatinine 1.7 and GFR is running at 37. BNP was very high at 13 900 patient will be continue on have eaten diuretics IV. 01/25: Repeat chest x-ray reveals improving right lower lobe infiltrate. Consolidation remains present. [place] for pneumonia. Moderate left pleural effusion. Cardiomegaly. Patient has been rechecked by cardiology and IV Lasix decreased as well as hydralazine was increased. Pulmonary medicine is following, no plans for thoracentesis. Patient is seen today on the cardiac stepdown unit. She is resting in bed and appears to be comfortable. Patient is afebrile, heart rate in the 60s and 70s, blood pressure 168/82, pulse ox 90% on 4 L nasal cannula. Blood blood glucose this morning was 44 REVIEW OF SYSTEMS Constitutional: No fever, no chills, no night sweats. No weight change. Report s weakness, Reportsfatigue Reports lethargy. No daytime sleepiness. EENT: No headache. No blurred vision or double vision, no loss of vision. No loss of Hearing, no ringing in the ears, no dizziness. No nasal drainage or congestion. No epistaxis. No sore throat. Lungs: Reports shortness of breath, cough, no sputum production. No wheezing. Reports shortness of breath with exertion. Cardiovascular: No chest pain, reports lower extremity edema. No palpitations. No paroxysmal nocturnal dyspnea. No orthopnea. No lightheadedness or dizziness. No syncopal episodes. Abdominal: No abdominal pain. No nausea, vomiting. No diarrhea. No constipation. No bloody or tarry stools. No loss of appetite. Genitourinary: No dysuria, increased frequency, urgency. No urinary retention. Musculoskeletal: No myalgias. Reports muscle weakness, Reports gait dysfunction, no frequent falls. No back pain. No neck pain. Integumentary: No wounds, no lesions. No rash or pruritus. Neurologic: No aphasia. No facial droop. Reports change in mentation. No head injury. No headache. No paralysis. No paresthesia. Psychiatric: No depression. No anxiety. Endocrine: No abnormal blood sugars. No weight change. PHYSICAL EXAMINATION Gen: This priscila 60-year-old -[place] female. She isthe third floor in her own bed off BiPAP on 3 L of O2. Seems to be comfortable. HEENT: Head is atraumatic, normocephalic. Pupils equal, round. Sclerae is anicteric. NECK: Supple. No JVD. No lymphadenopathy. No thyromegaly. LUNGS: reveals diminished bilaterally, few expiratory wheeze. Accessory muscle usage No intercostal retractions. HEART: Regular rate and rhythm. No murmur. ABDOMEN: Soft. Bowel sounds are present. No masses. No tenderness. Hyatt catheter with clear santo urine. EXTREMITIES: 1+ bilateral pedal edema, edema to the right thigh. Dorsalis pedis +2 bilaterally. No calf tenderness. NEUROLOGICAL: Patient is awake, oriented to person and place, able to nod to answer simple questions. No focal neuro deficits. ASSESSMENT AND PLAN 1. Acute on chronic respiratory failure secondary to acute diastolic heart failure. Patient is continued on BiPAP and followed by pulmonary medicine/high lead yarder. 2. Acute on chronic diastolic heart failure area and continue IV Lasix, monitor intake and output cardiology consultation appreciated. 3. Acute kidney injury with oliguria. Nephrology consult appreciated. 4. Troponin elevation likely due to acute on chronic kidney failure. Cardiology consult appreciated. 5. COPD: With slightly but worsening symptoms, will continue patient on albuterol/ipratropium nebulizer along with multiple a cast and steroid nebulizer. Sodium Medrol 40 mg IV every 8 to be done as well. 6. A. fib with RVR, paroxysmal atrial fibrillation. Continue metoprolol and amiodarone will continue Eliquis as well. 7. Hypertension. Continue Lopressor 50 mg twice daily, hydralazine 10 mg IV pu sh every 6 hours as needed. 8. Diabetes mellitus type 2 uncontrolled with hypoglycemia. Continue NovoLog scale before meals and at bedtime. Hold Actos 30 mg daily. 9. Diabetic neuropathy. Hold gabapentin. No need for any pain management this point. 10. Recurrent depression. Continue nortriptyline 25 mg daily. 11. HYperlipidemia: Continue patient on Lipitor 40 mg a day. 12. Chronic pain syndrome: Has been on hydrocodone continue medication. 13. DVT prophylaxis: Patient remain on Eliquis. 14. GI prophylaxis: Patient be on Pepcid 20 mg daily. CODE STATUS: Full code DISCHARGE PLAN Home with [facility]. Impression and plan of care have been directed as dictated by the signing physician. Kathe North nurse practitioner acting as scribe for signing physician. Objective - Vital Signs Vital signs: Vital Signs Temp 97.5 F L 01/25/21 08:53 Pulse 59 L 01/25/21 08:53 Resp 18 01/25/21 08:53 BP 168/82 01/25/21 08:53 Pulse Ox 98 01/25/21 08:53 Intake & Output 01/24/21 01/25/21 01/25/21 18:59 06:59 18:59 Intake Total 340 120 Output Total 300 150 Balance 40 -150 120 Weight 99.337 kg 89 kg Intake: Oral 340 120 Output: Urine 300 150 - Labs CBC & Chem 7: 01/24/21 10:29 01/24/21 10:29 Labs: Abnormal Lab Results - Last 24 Hours (Table) 01/24/21 01/24/21 01/24/21 Range/Units 10:29 10:29 10:29 RBC 3.73 L (3.80-5.40) m/uL Hgb 9.4 L (11.4-16.0) gm/dL Hct 32.7 L (34.0-46.0) % MCHC 28.6 L (31.0-37.0) g/dL RDW 19.5 H (11.5-15.5) % Lymphocytes # 0.7 L (1.0-4.8) k/uL PT 12.8 H (9.0-12.0) sec INR 1.2 H (<1.2) Carbon Dioxide 36 H (22-30) mmol/L BUN 33 H (7-17) mg/dL Creatinine 1.70 H (0.52-1.04) mg/dL Glucose 182 H (74-99) mg/dL POC Glucose (mg/dL) (75-99) mg/dL AST 38 H (14-36) U/L Troponin I (0.000-0.034) ng/mL 01/24/21 01/24/21 01/25/21 Range/Units 10:29 19:53 05:57 RBC (3.80-5.40) m/uL Hgb (11.4-16.0) gm/dL Hct (34.0-46.0) % MCHC (31.0-37.0) g/dL RDW (11.5-15.5) % Lymphocytes # (1.0-4.8) k/uL PT (9.0-12.0) sec INR (<1.2) Carbon Dioxide (22-30) mmol/L BUN (7-17) mg/dL Creatinine (0.52-1.04) mg/dL Glucose (74-99) mg/dL POC Glucose (mg/dL) 150 H 44 L (75-99) mg/dL AST (14-36) U/L Troponin I 0.043 H* (0.000-0.034) ng/mL 01/25/21 Range/Units 06:20 RBC (3.80-5.40) m/uL Hgb (11.4-16.0) gm/dL Hct (34.0-46.0) % MCHC (31.0-37.0) g/dL RDW (11.5-15.5) % Lymphocytes # (1.0-4.8) k/uL PT (9.0-12.0) sec INR (<1.2) Carbon Dioxide (22-30) mmol/L BUN (7-17) mg/dL Creatinine (0.52-1.04) mg/dL Glucose (74-99) mg/dL POC Glucose (mg/dL) 73 L (75-99) mg/dL AST (14-36) U/L Troponin I (0.000-0.034) ng/mL
[2021-01-25 15:51] LABS: Hemoglobin A1C 6.4 % (4.0-6.0)
[2021-01-25 16:48] LABS: Glucose,Whole Blood 64 mg/dL (75-99)
[2021-01-25 17:04] LABS: Glucose,Whole Blood 60 mg/dL (75-99)
[2021-01-25 17:43] LABS: Glucose,Whole Blood 97 mg/dL (75-99)
[2021-01-25 19:51] LABS: Glucose,Whole Blood 170 mg/dL (75-99)
[2021-01-25] MEDS: MONTELUKAST 10 MG TAB PO SCH (20:51)
[2021-01-25] MEDS: INSULIN DETEMIR (LEVEMIR) 100 UNIT/ML SYR SQ SCH (20:51)
[2021-01-25] MEDS: HYDROcodone/APAP 10-325MG 1 EACH TAB PO PRN (21:08)
[2021-01-26 06:14] LABS: Glucose,Whole Blood 62 mg/dL (75-99)
[2021-01-26] MEDS: INSULIN ASPART (NovoLOG) 100 UNIT/ML VIAL SQ SCH ×4 (06:27→21:07)
[2021-01-26 06:31] LABS: Glucose,Whole Blood 67 mg/dL (75-99)
[2021-01-26 06:46] LABS: Glucose,Whole Blood 84 mg/dL (75-99)
[2021-01-26] MEDS: PANTOPRAZOLE 40 MG TABLET PO SCH (07:10)
[2021-01-26 07:25] LABS: Anisocytosis Slight; HCT 30.5 % (34.0-46.0); Hypochromasia Marked; MCH 25.7 pg (25.0-35.0); MCHC 29.6 g/dL (31.0-37.0); MCV 86.8 fL (80.0-100.0); Mean Platelet Volume 9.1; Platelet Count 383 k/uL (150-450); RBC 3.51 m/uL (3.80-5.40); RDW 19.2 % (11.5-15.5); WBC 3.1 k/uL (3.8-10.6)
[2021-01-26] MEDS: IPRATROPIUM-ALBUTEROL 3 ML NEB INHALATION SCH ×4 (07:31→19:49)
[2021-01-26 08:36] LABS: Albumin 3.2 g/dL (3.5-5.0); Calcium 8.9 mg/dL (8.4-10.2); Potassium 4.8 mmol/L (3.5-5.1); Total Bilirubin 0.3 mg/dL (0.2-1.3); Total Protein 6.3 g/dL (6.3-8.2)
[2021-01-26] MEDS: POTASSIUM CHLORIDE ER 10 MEQ TAB.ER.PRT PO SCH ×2 (09:01→21:44)
[2021-01-26] MEDS: FUROSEMIDE 10 MG/ML 4 ML VIAL IV SCH ×2 (09:04→21:42)
[2021-01-26] MEDS: AMIODARONE 200 MG TAB PO SCH (09:06)
[2021-01-26] MEDS: METOPROLOL TARTRATE 50 MG TAB PO SCH ×3 (09:06→21:42)
[2021-01-26] MEDS: hydrALAZINE HCL 50 MG TAB PO SCH ×3 (09:07→21:42)
[2021-01-26] MEDS: CIPROFLOXACIN HCL 500 MG TAB PO SCH (09:07)
[2021-01-26] MEDS: APIXABAN 5 MG TAB PO SCH ×2 (09:07→21:42)
[2021-01-26] MEDS: NICOTINE 14MG/24HR PATCH TRANSDERM SCH (09:07)
[2021-01-26] MEDS: ATORVASTATIN 40 MG TAB PO SCH (09:07)
[2021-01-26] MEDS: LORATADINE 10 MG TAB PO SCH (09:07)
[2021-01-26] MEDS: NORTRIPTYLINE 25 MG CAP PO SCH (09:07)
[2021-01-26] MEDS: ISOSORBIDE MONONITRATE ER 30 MG TAB.ER.24H PO SCH (09:07)
[2021-01-26] MEDS ORDERED: IOPAMIDOL CONTRAST (ORAL USE) VIAL PO PRN ×2 (09:34→09:35)
--- NOTE | 2021-01-26 11:17 | P.PN ---
Subjective Progress Note Date: 01/26/21 HISTORY OF PRESENT ILLNESS This is a 60-year-old female patient at [facility] with past medical history significant for COPD, diabetes mellitus type 2, gastroesophageal reflux disease, hypertension, hyperlipidemia, generalized osteoarthritis, remote history of tobacco use and dependence. Patient was hospitalized recently at [facility] for respiratory failure found to have left-sided pleural effusion thoracentesis of 800 mL was done also patient ended up going for cardioversion for chronic A. fib she was sent home after been in for 5 days. Patient was rehospitalized at [facility] between 723 to 01/10/2021 for A. fib with RVR, respiratory failure with non-STEMI and CHF exacerbation. Patient was seen cardiology and pulmonary done well she was kept on BiPAP for a good part of her hospitalization at the time. Patient was kept on heavy doses of IV diuretics. On 01/08: Patient had thoracentesis of the left side for 650 mL was mostly transudate cytology was negative for CVA. With her symptoms been well controlled time patient was sent home on Bumex 2 mg daily along with ciprofloxacin 500 mg twice a day for 7 days was to be kept on Eliquis along with metoprolol titrate 50 mg 3 times a day which kept her pulse rate well controlled. Patient presented to [facility] today 01/24 2021 with severe dyspnea and shortness of breath has been progressively getting worse for the last 3 days she was quite hypoxic when registered art therapist was at the scene. Patient ended up coming to the emergency department require to go on BiPAP for the whole time after 2 or 3 round of respiratory treatment along with titrating her O2 on BiPAP Patient Started Getting Slightly Better. Patient Was Giving to Dose of IV Diuretics Which Diabetes Quite but at the Time. Chest X-Ray Showed Sign and Symptom of Congestive Heart Failure Also Chest X-Ray Showed? Off Infiltrate in the Base Which Has Not Been Clear Well from Her Last Hospitalization. Patient Be Started on IV Antibiotics besides Steroid and BiPAP We'll Consult Cardiology and Pulmonary. Her Troponin Was Mildly Elevated Patient Will Be Diagnosed with Non-ST DC till Proven Otherwise. Surprisingly her kidney function is much better than last time with creatinine 1.7 and GFR is running at 37. BNP was very high at 13 900 patient will be continue on have eaten diuretics IV. 01/25: Repeat chest x-ray reveals improving right lower lobe infiltrate. Consolidation remains present. [place]ppers for pneumonia. Moderate left pleural effusion. Cardiomegaly. Patient has been rechecked by cardiology and IV Lasix decreased as well as hydralazine was increased. Pulmonary medicine is following, no plans for thoracentesis. Patient is seen today on the cardiac stepdown unit. She is resting in bed and appears to be comfortable. Patient is afebrile, heart rate in the 60s and 70s, blood pressure 168/82, pulse ox 90% on 4 L nasal cannula. Blood blood glucose this morning was 44 01/26: She states that she is not feeling well today. Areas she is complaining of abdominal bloating and gas and difficulty eating. She's been instructed to avoid pop. CAT scan of the abdomen and pelvis without contrast has been ordered for today. Patient has been afebrile, heart rate 63, blood pressure 108/52, pulse ox 98% on 4 L nasal cannula. WBC 3.1, hemoglobin 9, platelet count 383. Sodium 138, potassium 4.8, chloride 94, CO2 39, BUN 41 creatinine 1.86. Liver function tests are normal. Blood sugars this morning in the 60s followed by 84. Weight is down 2 kg. REVIEW OF SYSTEMS Constitutional: No fever, no chills, no night sweats. No weight change. Reports weakness, Reportsfatigue Reports lethargy. No daytime sleepiness. EENT: No headache. No blurred vision or double vision, no loss of vision. No loss of Hearing, no ringing in the ears, no dizziness. No nasal drainage or congestion. No epistaxis. No sore throat. Lungs: Reports shortness of breath, cough, no sputum production. No wheezing. Reports shortness of breath with exertion. Cardiovascular: No chest pain, reports lower extremity edema. No palpitations. No paroxysmal nocturnal dyspnea. No orthopnea. No lightheadedness or dizziness. No syncopal episodes. Abdominal: Reports abdominal pain. Reports abdominal bloating. Reports nausea, no vomiting. No diarrhea. No constipation. No bloody or tarry stools. Reports loss of appetite. Genitourinary: No dysuria, increased frequency, urgency. No urinary retention. Musculoskeletal: No myalgias. Reports muscle weakness, Reports gait dysfunction, no frequent falls. No back pain. No neck pain. Integumentary: No wounds, no lesions. No rash or pruritus. Neurologic: No aphasia. No facial droop. Denies change in mentation. No head injury. No headache. No paralysis. No paresthesia. Psychiatric: No depression. No anxiety. Endocrine: Noted abnormal blood sugars. No weight change. PHYSICAL EXAMINATION Gen: This priscila 60-year-old -[place] female. She isthe third floor in her own bed off BiPAP on 3 L of O2. Seems to be comfortable. HEENT: Head is atraumatic, normocephalic. Pupils equal, round. Sclerae is anicteric. NECK: Supple. No JVD. No lymphadenopathy. No thyromegaly. LUNGS: reveals diminished bilaterally, few expiratory wheeze. Accessory muscle usage No intercostal retractions. HEART: Regular rate and rhythm. No murmur. ABDOMEN: Abdomen distended, tympanic. Bowel sounds are present. No masses. Mild generalized tenderness. EXTREMITIES: 1+ bilateral pedal edema. Dorsalis pedis +2 bilaterally. No calf tenderness. NEUROLOGICAL: Patient is awake, oriented 3. No focal neuro deficits. ASSESSMENT AND PLAN 1. Acute on chronic respiratory failure secondary to acute diastolic heart failure. No plan for thoracentesis 2. Acute on chronic diastolic heart failure area and continue IV Lasix, monitor intake and output cardiology consultation appreciated. 3. Acute kidney injury. 4. Troponin elevation likely due to acute on chronic kidney failure. Cardiology consult appreciated. 5. COPD without exacerbation. albuterol/ipratropium nebulizer. 6. A. fib with RVR, paroxysmal atrial fibrillation. Continue metoprolol and amiodarone will continue Eliquis as well. 7. Hypertension. Continue Lopressor 50 mg 3 times daily, hydralazine 50 mg 3 times daily. 8. Diabetes mellitus type 2 uncontrolled with hypoglycemia. Continue NovoLog scale before meals and at bedtime. Hold Actos 30 mg daily. 9. Diabetic neuropathy. 10. Recurrent depression. 11. HYperlipidemia: Continue patient on Lipitor 40 mg a day. 12. Chronic pain syndrome: Has been on hydrocodone continue medication. 13. DVT prophylaxis: Patient remain on Eliquis. 14. GI prophylaxis: Patient be on Pepcid 20 mg daily. CODE STATUS: Full code DISCHARGE PLAN Home with [facility]. Impression and plan of care have been directed as dictated by the signing physician. Kathe North nurse practitioner acting as scribe for signing physician. Objective - Vital Signs Vital signs: Vital Signs Temp 97.9 F 01/26/21 09:02 Pulse 63 01/26/21 09:02 Resp 20 01/26/21 09:02 BP 108/52 01/26/21 09:02 Pulse Ox 98 01/26/21 09:02 Intake & Output 01/25/21 01/26/21 01/26/21 18:59 06:59 18:59 Intake Total 1080 240 Output Total 700 600 Balance 380 -600 240 Weight 89 kg 87.3 kg Intake: Oral 1080 240 Output: Urine 700 600 - Labs CBC & Chem 7: 01/26/21 07:00 01/26/21 07:00 Labs: Abnormal Lab Results - Last 24 Hours (Table) 01/25/21 01/25/21 01/25/21 Range/Units 07:28 16:46 17:03 WBC (3.8-10.6) k/uL RBC (3.80-5.40) m/uL Hgb (11.4-16.0) gm/dL Hct (34.0-46.0) % MCHC (31.0-37.0) g/dL RDW (11.5-15.5) % Chloride (98-107) mmol/L Carbon Dioxide (22-30) mmol/L BUN (7-17) mg/dL Creatinine (0.52-1.04) mg/dL POC Glucose (mg/dL) 64 L 60 L (75-99) mg/dL Hemoglobin A1c 6.4 H (4.0-6.0) % Albumin (3.5-5.0) g/dL 01/25/21 01/26/21 01/26/21 Range/Units 19:49 06:13 06:29 WBC (3.8-10.6) k/uL RBC (3.80-5.40) m/uL Hgb (11.4-16.0) gm/dL Hct (34.0-46.0) % MCHC (31.0-37.0) g/dL RDW (11.5-15.5) % Chloride (98-107) mmol/L Carbon Dioxide (22-30) mmol/L BUN (7-17) mg/dL Creatinine (0.52-1.04) mg/dL POC Glucose (mg/dL) 170 H 62 L 67 L (75-99) mg/dL Hemoglobin A1c (4.0-6.0) % Albumin (3.5-5.0) g/dL 01/26/21 01/26/21 Range/Units 07:00 07:00 WBC 3.1 L (3.8-10.6) k/uL RBC 3.51 L (3.80-5.40) m/uL Hgb 9.0 L (11.4-16.0) gm/dL Hct 30.5 L (34.0-46.0) % MCHC 29.6 L (31.0-37.0) g/dL RDW 19.2 H (11.5-15.5) % Chloride 94 L (98-107) mmol/L Carbon Dioxide 39 H (22-30) mmol/L BUN 41 H (7-17) mg/dL Creatinine 1.86 H (0.52-1.04) mg/dL POC Glucose (mg/dL) (75-99) mg/dL Hemoglobin A1c (4.0-6.0) % Albumin 3.2 L (3.5-5.0) g/dL
[2021-01-26 11:49] LABS: Glucose,Whole Blood 117 mg/dL (75-99)
--- NOTE | 2021-01-26 12:33 | CT ---
EXAMINATION TYPE: CT abdomen pelvis wo con DATE OF EXAM: 01/26/2021 COMPARISON: 10/16/2020 HISTORY: 60-year-old female Distention, ascites CT DLP: 885.9 mGycm. Automated exposure control for dose reduction was used. TECHNIQUE: Contiguous axial scanning of the abdomen and pelvis without IV contrast. Coronal and sagit leon reconstructions performed. FINDINGS: Cardiomegaly. Small pericardial effusion persists. Moderate right and small left effusions persist. B ibasilar consolidation and volume loss. Severe anasarca and dependent edema. Noncontrast appearance of the liver, gallbladder, adrenal glands, spleen, and pancreas show no gross abnormality. Assessment is limited by lack of IV contrast. Bilateral perinephric edema likely related to fluid overload state. No hydronephrosis. Trace perihepatic ascites. No dilated small bowel or free air. No mesenteric or retroperitoneal lymphadenopathy. There is moderate stool burden. Lower descending and proximal to mid sigmoid diverticulosis. No peric olonic inflammatory change. Normal appendix. Circumferential bladder wall thickening. Presacral edema. No abnormal fluid collection otherwise seen in the pelvis or pelvic lymphadenopathy. Uterus surgically absent. Some surgical clips in the pelvis . Suspect visualization of the ovaries. Marked anasarca change extends into the pelvis and visualized upper thighs. Moderate degenerative change of the hips. Previous L5-S1 interbody fusion. Hypertrophic facet arthrop athy mid to lower lumbar spine. Moderate degenerative disc disease lower thoracic spine. Osteopenia. IMPRESSION: 1. Severe anasarca and body wall edema persists. Cardiomegaly with moderate right pleural effusion a nd small left effusions. Trace perihepatic ascites. Findings suggest third spacing and fluid overload state/CHF. 2. Prominent patchy consolidation and atelectasis in the lower lungs. Correlate to exclude the possi bility of underlying pneumonia. 3. Moderate stool burden. Left-sided clonic diverticulosis without acute diverticulitis. 4. Circumferential bladder wall thickening. Correlate to exclude cystitis.
--- NOTE | 2021-01-26 12:53 | P.PN ---
Subjective Progress Note Date: 01/26/21 60-year-old black female with history of COPD, CHF, chronic atrial fibrillation, pleural effusion, diabetes, as well as gastroesophageal reflux disease, hypertension, hyperlipidemia, and osteoarthritis, who presents to the emergency department on January 24, with complaints of increasing shortness of breath. In addition, she complains of lower extremity edema, and increasing abdominal girth. The patient was seen by me in consultation in the ER on January 04. At that time, she came in with similar complaints of shortness of breath. She was much more short of breath at that time, and required BiPAP therapy. Prior to that, she was a [facility], for 5 days, at which time, she had a left- sided thoracentesis with 800 mL removed, and also that time had a cardioversion for atrial fibrillation. During her last admission here, after I saw her in consultation, my partner, did a left-sided thoracentesis and 650 mL was removed. Currently, she is resting comfortably in the room. She is on 6 L nasal cannula. She's not receiving any IV fluids. The patient is getting Lasix 40 mg IV push every 8 hours. White count 5.3, he will 9.4, hematocrit 32.7, and platelet count 3 80,000. PT 12.8 INR 1.2 and PTT 27.2. Sodium potassium chloride normal CO2 36 anion gap 7 BUN 33, and creatinine 1.70. Troponin was 0.043 and the N-terminal proBNP was 13,900. Chest x-ray showed a pattern of diffuse pulmonary edema. She likely has bilateral effusions, left greater than right. The patient is seen today 01/25/2021 in follow-up on the selective care unit. She is currently resting quite comfortably in bed. Awake and alert in no acute distress. Maintaining good O2 saturations in the upper 90s on 4 L/m per nasal cannula. Afebrile. Chest x-ray reveals improving right lower lobe infiltrate. Moderate left-sided pleural effusion stable. Cardiomegaly. Remains on IV diuretics. Kaylin on bronchodilators. She is anticoagulated with Eliquis. Antibiotics in the form of Cipro. NicoDerm patches in place. The patient is seen today 01/26/2021 in follow-up on the selective care unit. She is awake and alert in no acute distress. Currently resting comfortably in bed. Still having some ongoing issues with abdominal discomfort. No worsening shortness of breath, cough or congestion. 18 in good O2 saturations in the mid to upper 90s on 4 L/m per nasal cannula. She's afebrile. White count 3.1. Hemoglobin 9.0. Sodium 1:30. Potassium 4.8. Creatinine 1.86. Computed tomography scan of the abdomen and pelvis reveals severe anasarca and body wall edema. Cardiomegaly with moderate right pleural effusion and small left effusions. Trace. Hepatic ascites. Findings suggest third spacing of fluid volume overload state/CHF. Atelectasis of the lower lungs. Colonic diverticulosis without acute diverticulitis. She remains on bronchodilators, IV diuretics, anticoagulated with Eliquis. NicoDerm patch in place. Objective - Vital Signs Vital signs: Vital Signs Temp 97.9 F 01/26/21 09:02 Pulse 60 01/26/21 11:16 Resp 18 01/26/21 11:16 BP 129/72 01/26/21 11:16 Pulse Ox 97 01/26/21 11:16 Intake & Output 01/25/21 01/26/21 01/26/21 18:59 06:59 18:59 Intake Total 1080 240 Output Total 700 600 Balance 380 -600 240 Weight 89 kg 87.3 kg Intake: Oral 1080 240 Output: Urine 700 600 - Exam GENERAL EXAM: Alert, pleasant 60-year-old female patient, on 4 L nasal cannula, comfortable in no apparent distress. HEAD: Normocephalic. EYES: Normal reaction of pupils, equal size. NOSE: Clear with pink turbinates. THROAT: No erythema or exudates. NECK: No masses, no JVD. CHEST: No chest wall deformity. LUNGS: Equal air entry with crackles in the posterior bases left greater than right, dullness left base CVS: S1 and S2 normal with no audible murmur, regular rhythm. ABDOMEN: Distention. Positive fluid wave. No hepatosplenomegaly, normal bowel sounds, no guarding or rigidity. SPINE: No scoliosis or deformity SKIN: No rashes CENTRAL NERVOUS SYSTEM: No focal deficits, tone is normal in all 4 extremities. EXTREMITIES: There is 1+ peripheral edema. No clubbing, no cyanosis. Peripheral pulses are intact. - Labs CBC & Chem 7: 01/26/21 07:00 01/26/21 07:00 Labs: Abnormal Lab Results - Last 24 Hours (Table) 01/25/21 01/25/21 01/25/21 Range/Units 07:28 16:46 17:03 WBC (3.8-10.6) k/uL RBC (3.80-5.40) m/uL Hgb (11.4-16.0) gm/dL Hct (34.0-46.0) % MCHC (31.0-37.0) g/dL RDW (11.5-15.5) % Chloride (98-107) mmol/L Carbon Dioxide (22-30) mmol/L BUN (7-17) mg/dL Creatinine (0.52-1.04) mg/dL POC Glucose (mg/dL) 64 L 60 L (75-99) mg/dL Hemoglobin A1c 6.4 H (4.0-6.0) % Albumin (3.5-5.0) g/dL 01/25/21 01/26/21 01/26/21 Range/Units 19:49 06:13 06:29 WBC (3.8-10.6) k/uL RBC (3.80-5.40) m/uL Hgb (11.4-16.0) gm/dL Hct (34.0-46.0) % MCHC (31.0-37.0) g/dL RDW (11.5-15.5) % Chloride (98-107) mmol/L Carbon Dioxide (22-30) mmol/L BUN (7-17) mg/dL Creatinine (0.52-1.04) mg/dL POC Glucose (mg/dL) 170 H 62 L 67 L (75-99) mg/dL Hemoglobin A1c (4.0-6.0) % Albumin (3.5-5.0) g/dL 01/26/21 01/26/21 01/26/21 Range/Units 07:00 07:00 11:46 WBC 3.1 L (3.8-10.6) k/uL RBC 3.51 L (3.80-5.40) m/uL Hgb 9.0 L (11.4-16.0) gm/dL Hct 30.5 L (34.0-46.0) % MCHC 29.6 L (31.0-37.0) g/dL RDW 19.2 H (11.5-15.5) % Chloride 94 L (98-107) mmol/L Carbon Dioxide 39 H (22-30) mmol/L BUN 41 H (7-17) mg/dL Creatinine 1.86 H (0.52-1.04) mg/dL POC Glucose (mg/dL) 117 H (75-99) mg/dL Hemoglobin A1c (4.0-6.0) % Albumin 3.2 L (3.5-5.0) g/dL Assessment and Plan Assessment: 1 Acute hypoxemic respiratory failure, secondary to acute exacerbation of d iastolic CHF. Severe anasarca. 2 Recent admission to [facility] for 5 days, status post cardioversion and left-sided thoracentesis with 800 mL removed. 3 Status post thoracentesis on December with 650 mL removed, left side. 4 History of acute kidney injury. 5 History of diastolic CHF. 6 History of mild COPD. 7 History of sleep apnea syndrome. 8 History of hypertension. 9 History of hyperlipidemia. 10 History of diabetes mellitus. 11 History of prior tobacco use. 12 Diabetic neuropathy and diabetic retinopathy. 13 Gastroesophageal reflux disease. 14 History of osteoarthritis. 15 History of atrial flutter, anticoagulated with Eliquis Plan: The patient was seen and evaluated by Dr. Dexter Continue IV diuretics Titrate down the FiO2 as tolerated We will continue to follow I, the cosigning physician, performed a history & physical examination of the patient. Lungs sounds crackles in the bases left greater than right, dullness on the left Maintaining good O2 saturations in the 90s on 4 L/m per nasal cannula. I discussed the assessment and plan of care with my nurse practitioner, Delmy Harrington. I attest to the above note as dictated by her.
[2021-01-26 16:38] LABS: Glucose,Whole Blood 127 mg/dL (75-99)
--- NOTE | 2021-01-26 18:35 | P.PN ---
Subjective A 60-year-old female who was admitted to the emergency department with complaints of progressively worsening shortness of breath over the last few days which suddenly became worse this morning. She has a history of hypertension, hyperlipidemia and diabetes. History of a cardiac catheterization in 2016 with no evidence of obstructive CAD at that time. She'll history of chronic tobacco use and has very recently stopped smoking. She's had recent multiple admissions to the hospital. She was admitted to [facility] and underwent thoracentesis and cardioversion. She was subsequently readmitted here last month with tachycardia and shortness of breath was noted to be in atrial fibrillation with rapid ventricular response. She was initiated on amiodarone at that time. She also underwent thoracentesis during her previous admission. She and echocardiogram done in October of this year and at that time her ejection fraction was 55-60% with severe pulmonary hypertension measuring 69 mmHg. Over the last few days she's been more short of breath with some tightness in her chest and pressure as well as some abdominal bloating. She denies any clear complaints of orthopnea but does wake up feeling short of breath through the ni ght. Laboratory values on admission showed hemoglobin 9.4, BUN 33, creatinine 1.7, troponin 0.043 and NT proBNP of 13,900 which was previously over 30,000. EKG on admission showed sinus rhythm with prolonged QT interval. Chest x-ray impression interval marked progression of diffuse bilateral pleural parenchymal changes correlate for CHF with pulmonary edema versus diffuse pneumonia of her review of the films this patient has left-sided pleural effusion. She has been initiated on IV Lasix and BiPAP. Upon examination patient appears comfortable. She is able to speak in full sentences but does have some mild dyspnea with talking. She has very trace edema and doesn't feel that that is worse than usual. Denies any chest pain but does feel some pressure in her chest with breathing. Denies any dizziness or lightheadedness. Denies any palpitations or feeling her heart racing. Echocardiogram on 10/2020 revealed EF 55-60%, severe concentric left ventricular hypertrophy, paradoxical motion of the right ventricular septum consistent with right ventricular overload and/or elevated right ventricular end diastolic pressure moderate tricuspid regurgitation, severe pulmonary hypertension with RVSP 69mmHg 01/26/2021. Patient is continued on Lasix 40 mg IV twice a day. She does admit to occasional fullness in her stomach. She admits to mainly feeling short of breath with minimal exertion such as getting up from the bathroom. She denies any chest pain or pressure. Creatinine today mildly increased from 1.7-1.86. GENERAL: Well-appearing, well-nourished and in no acute distress. NECK: Supple with bilateral JVD or thyromegaly. LUNGS: Diminished in the bases. no wheezes or rhonchi. Respiration equal and unlabored. HEART: Regular rate and rhythm, systolic murmur noted. S1 and S2 heard. SKIN: right back thoracentesis site covered with bandaid no hematoma or pain noted, left back thoracentesis site covered with bandaid no hematoma EXTREMITIES: Normal range of motion, mild bilateral lower extremity pitting edema. No clubbing or cyanosis. Peripheral pulses intact. ASSESSMENT Atrial tachycardia, currently maintaining sinus mechanism Acute on chronic diastolic heart failure Hypertension Diabetes mellitus Dyslipidemia Proximal atrial fibrillation on long-term anticoagulation Chronic kidney disease Severe concentric left ventricular hypertrophy, Concern of possible amyloidosis with low voltage on EKG and significant LVH on echo s/p right sided thoracentesis 01/07 with 900mL removed s/p left sided thoracentesis 01/08 with 650mL removed Pulmonary hypertension likely from left-sided heart failure PLAN Reviewing patient's Echocardiogram and EKG patient with low voltage and severe LVH seen on echo, there is concern for cardiac amyloidosis Continue with diuretics however may be near restrictive pattern with extreme sensitivities to volume status. If continued ambiguity, may consider right heart catheterization as this appears to be predominantly left-sided heart failure however does not have overly dilated left atrium which would go more with restrictive filling pattern. Likely pulmonary hypertension is related to left-sided heart failure however less likely could be related to group 1 pulmonary hypertension. Objective - Vital Signs Vital signs: Vital Signs Temp 98.2 F 01/26/21 15:45 Pulse 63 01/26/21 15:45 Resp 18 01/26/21 15:45 BP 120/68 01/26/21 15:45 Pulse Ox 97 01/26/21 15:45 Intake & Output 01/25/21 01/26/21 01/26/21 18:59 06:59 18:59 Intake Total 1080 480 Output Total 435 903 8827 Balance 380 -600 -570 Weight 89 kg 87.3 kg Intake: Oral 1080 480 Output: Urine 179 069 1380 Other: # Voids 1 - Labs CBC & Chem 7: 01/26/21 07:00 01/26/21 07:00 Labs: Abnormal Lab Results - Last 24 Hours (Table) 01/25/21 01/26/21 01/26/21 Range/Units 19:49 06:13 06:29 WBC (3.8-10.6) k/uL RBC (3.80-5.40) m/uL Hgb (11.4-16.0) gm/dL Hct (34.0-46.0) % MCHC (31.0-37.0) g/dL RDW (11.5-15.5) % Chloride (98-107) mmol/L Carbon Dioxide (22-30) mmol/L BUN (7-17) mg/dL Creatinine (0.52-1.04) mg/dL POC Glucose (mg/dL) 170 H 62 L 67 L (75-99) mg/dL Albumin (3.5-5.0) g/dL 01/26/21 01/26/21 01/26/21 Range/Units 07:00 07:00 11:46 WBC 3.1 L (3.8-10.6) k/uL RBC 3.51 L (3.80-5.40) m/uL Hgb 9.0 L (11.4-16.0) gm/dL Hct 30.5 L (34.0-46.0) % MCHC 29.6 L (31.0-37.0) g/dL RDW 19.2 H (11.5-15.5) % Chloride 94 L (98-107) mmol/L Carbon Dioxide 39 H (22-30) mmol/L BUN 41 H (7-17) mg/dL Creatinine 1.86 H (0.52-1.04) mg/dL POC Glucose (mg/dL) 117 H (75-99) mg/dL Albumin 3.2 L (3.5-5.0) g/dL 01/26/21 Range/Units 16:36 WBC (3.8-10.6) k/uL RBC (3.80-5.40) m/uL Hgb (11.4-16.0) gm/dL Hct (34.0-46.0) % MCHC (31.0-37.0) g/dL RDW (11.5-15.5) % Chloride (98-107) mmol/L Carbon Dioxide (22-30) mmol/L BUN (7-17) mg/dL Creatinine (0.52-1.04) mg/dL POC Glucose (mg/dL) 127 H (75-99) mg/dL Albumin (3.5-5.0) g/dL
[2021-01-26 19:57] LABS: Glucose,Whole Blood 110 mg/dL (75-99)
[2021-01-26] MEDS: INSULIN DETEMIR (LEVEMIR) 100 UNIT/ML SYR SQ SCH (21:42)
[2021-01-26] MEDS: MONTELUKAST 10 MG TAB PO SCH (21:43)
[2021-01-26] MEDS: HYDROcodone/APAP 10-325MG 1 EACH TAB PO PRN (21:44)
[2021-01-27 06:11] LABS: Glucose,Whole Blood 130 mg/dL (75-99)
[2021-01-27] MEDS: INSULIN ASPART (NovoLOG) 100 UNIT/ML VIAL SQ SCH ×4 (07:21→21:29)
[2021-01-27] MEDS: PANTOPRAZOLE 40 MG TABLET PO SCH (07:26)
[2021-01-27] MEDS: IPRATROPIUM-ALBUTEROL 3 ML NEB INHALATION SCH ×4 (07:26→19:18)
[2021-01-27] MEDS: AMIODARONE 200 MG TAB PO SCH (08:55)
[2021-01-27] MEDS: METOPROLOL TARTRATE 50 MG TAB PO SCH ×3 (08:55→21:26)
[2021-01-27] MEDS: APIXABAN 5 MG TAB PO SCH ×2 (08:55→21:26)
[2021-01-27] MEDS: hydrALAZINE HCL 50 MG TAB PO SCH ×3 (08:55→21:26)
[2021-01-27] MEDS: FUROSEMIDE 10 MG/ML 4 ML VIAL IV SCH ×2 (08:55→21:45)
[2021-01-27] MEDS: NORTRIPTYLINE 25 MG CAP PO SCH (08:55)
[2021-01-27] MEDS: NICOTINE 14MG/24HR PATCH TRANSDERM SCH (08:55)
[2021-01-27] MEDS: ISOSORBIDE MONONITRATE ER 30 MG TAB.ER.24H PO SCH (08:55)
[2021-01-27] MEDS: LORATADINE 10 MG TAB PO SCH (08:55)
[2021-01-27] MEDS: ATORVASTATIN 40 MG TAB PO SCH (08:55)
[2021-01-27] MEDS ORDERED: FLUTICASONE 50MCG/SPRAY NASAL 16GM EA NOSTRIL SCH (09:00)
[2021-01-27] MEDS ORDERED: AMIODARONE 200 MG TAB PO SCH (09:00)
--- NOTE | 2021-01-27 09:10 | XR ---
EXAMINATION TYPE: XR chest 1V portable DATE OF EXAM: 01/27/2021 COMPARISON: 01/25/2021 HISTORY: 60 years Female. STUDY INDICATION GIVEN: LLL infiltrate . TECHNIQUE: Portable upright AP chest radiograph FINDINGS AND IMPRESSION: Low lung volumes. Worsening opacities in the right lower lobe likely on the basis of pneumonia with subsegmental atelec tasis. Left lower lobe opacity could represent left lower lobe pneumonia and/or atelectasis secondary to sma ll-moderate left pleural effusion. Size of pleural effusion has not significantly changed since prior . Cardiac silhouette difficult to reliably evaluate due to left lower lobe opacities. Mediastinal silho uette within normal limit. No pneumothorax. No acute osseous abnormality.
[2021-01-27] MEDS ORDERED: polyethylene glycoL 3350 17 GM POWD.PACK PO STA (09:28)
[2021-01-27] MEDS: POTASSIUM CHLORIDE ER 10 MEQ TAB.ER.PRT PO SCH ×2 (10:05→21:26)
[2021-01-27 11:50] LABS: Glucose,Whole Blood 156 mg/dL (75-99)
--- NOTE | 2021-01-27 12:11 | P.PN ---
Subjective Progress Note Date: 01/27/21 HISTORY OF PRESENT ILLNESS This is a 60-year-old female patient at [facility] with past medical history significant for COPD, diabetes mellitus type 2, gastroesophageal reflux disease, hypertension, hyperlipidemia, generalized osteoarthritis, remote history of tobacco use and dependence. Patient was hospitalized recently at [facility] for respiratory failure found to have left-sided pleural effusion thoracentesis of 800 mL was done also patient ended up going for cardioversion for chronic A. fib she was sent home after been in for 5 days. Patient was rehospitalized at [facility] between 723 to 01/10/2021 for A. fib with RVR, respiratory failure with non-STEMI and CHF exacerbation. Patient was seen cardiology and pulmonary done well she was kept on BiPAP for a good part of her hospitalization at the time. Patient was kept on heavy doses of IV diuretics. On 01/08: Patient had thoracentesis of the left side for 650 mL was mostly transudate cytology was negative for CVA. With her symptoms been well controlled time patient was sent home on Bumex 2 mg daily along with ciprofloxacin 500 mg twice a day for 7 days was to be kept on Eliquis along with metoprolol titrate 50 mg 3 times a day which kept her pulse rate well controlled. Patient presented to [facility] today 01/24 2021 with severe dyspnea and shortness of breath has been progressively getting worse for the last 3 days she was quite hypoxic when satellite dish repairer was at the scene. Patient ended up coming to the emergency department require to go on BiPAP for the whole time after 2 or 3 round of respiratory treatment along with titrating her O2 on BiPAP Patient Started Getting Slightly Better. Patient Was Giving to Dose of IV Diuretics Which Diabetes Quite but at the Time. Chest X-Ray Showed Sign and Symptom of Congestive Heart Failure Also Chest X-Ray Showed? Off Infiltrate in the Base Which Has Not Been Clear Well from Her Last Hospitalization. Patient Be Started on IV Antibiotics besides Steroid and BiPAP We'll Consult Cardiology and Pulmonary. Her Troponin Was Mildly Elevated Patient Will Be Diagnosed with Non-ST MO till Proven Otherwise. Surprisingly her kidney function is much better than last time with creatinine 1.7 and GFR is running at 37. BNP was very high at 13 900 patient will be continue on have eaten diuretics IV. 01/25: Repeat chest x-ray reveals improving right lower lobe infiltrate. Consolidation remains present. [place] for pneumonia. Moderate left pleural effusion. Cardiomegaly. Patient has been rechecked by cardiology and IV Lasix decreased as well as hydralazine was increased. Pulmonary medicine is following, no plans for thoracentesis. Patient is seen today on the cardiac stepdown unit. She is resting in bed and appears to be comfortable. Patient is afebrile, heart rate in the 60s and 70s, blood pressure 168/82, pulse ox 90% on 4 L nasal cannula. Blood blood glucose this morning was 44 01/26: She states that she is not feeling well today. Areas she is complaining of abdominal bloating and gas and difficulty eating. She's been instructed to avoid pop. CAT scan of the abdomen and pelvis without contrast has been ordered for today. Patient has been afebrile, heart rate 63, blood pressure 108/52, pulse ox 98% on 4 L nasal cannula. WBC 3.1, hemoglobin 9, platelet count 383. Sodium 138, potassium 4.8, chloride 94, CO2 39, BUN 41 creatinine 1.86. Liver function tests are normal. Blood sugars this morning in the 60s followed by 84. Weight is down 2 kg. 01/27: CAT scan of the abdomen and pelvis revealed severe anasarca and body wall edema persists. Cardiomegaly with moderate right pleural effusion and small left effusions. Trace perihepatic ascites. Findings suggest third spacing and fluid overload state. Prominent patchy consolidation and atelectasis in the lower lungs. Correlate to exclude underlying pneumonia. Moderate stool burden. Left-sided colonic diverticulosis without acute diverticulitis. Circumferential bladder wall thickening. Correlate to exclude cystitis. Patient is complaining of constipation. MiraLAX 1 dose and Senokot scheduled added. Patient instructed to increase protein intake, Ensure added. Urinalysis ordered. Cardiology is concern for cardiac amyloidosis. Patient will be continued on IV Lasix. REVIEW OF SYSTEMS Constitutional: No fever, no chills, no night sweats. No weight change. Reports weakness, Reportsfatigue Reports lethargy. No daytime sleepiness. EENT: No headache. No blurred vision or double vision, no loss of vision. No loss of Hearing, no ringing in the ears, no dizziness. No nasal drainage or congestion. No epistaxis. No sore throat. Lungs: Reports shortness of breath, cough, no sputum production. No wheezing. Reports shortness of breath with exertion. Cardiovascular: No chest pain, reports lower extremity edema. No palpitations. No paroxysmal nocturnal dyspnea. No orthopnea. No lightheadedness or dizziness. No syncopal episodes. Abdominal: Reports abdominal pain. Reports abdominal bloating. Reports nausea, no vomiting. No diarrhea. No constipation. No bloody or tarry stools. Reports loss of appetite. Genitourinary: No dysuria, increased frequency, urgency. No urinary retention. Musculoskeletal: No myalgias. Reports muscle weakness, Reports gait dysfunction, no frequent falls. No back pain. No neck pain. Integumentary: No wounds, no lesions. No rash or pruritus. Neurologic: No aphasia. No facial droop. Denies change in mentation. No head injury. No headache. No paralysis. No paresthesia. Psychiatric: No depression. No anxiety. Endocrine: Noted abnormal blood sugars. No weight change. PHYSICAL EXAMINATION Gen: This priscila 60-year-old -[place] female. She isthe third floor in her own bed off BiPAP on 3 L of O2. Seems to be comfortable. HEENT: Head is atraumatic, normocephalic. Pupils equal, round. Sclerae is anicteric. NECK: Supple. No JVD. No lymphadenopathy. No thyromegaly. LUNGS: reveals diminished bilaterally, few expiratory wheeze. Accessory muscle usage No intercostal retractions. HEART: Regular rate and rhythm. No murmur. ABDOMEN: Abdomen distended, tympanic. Bowel sounds are present. No masses. Mild generalized tenderness. EXTREMITIES: 1+ bilateral pedal edema. Dorsalis pedis +2 bilaterally. No calf tenderness. NEUROLOGICAL: Patient is awake, oriented 3. No focal neuro deficits. ASSESSMENT AND PLAN 1. Acute on chronic respiratory failure secondary to acute diastolic heart failure. No plan for thoracentesis 2. Acute on chronic diastolic heart failure area and continue IV Lasix, monitor intake and output cardiology consultation appreciated. 3. Acute kidney injury. 4. Troponin elevation likely due to acute on chronic kidney failure. Car diology consult appreciated. 5. COPD without exacerbation. albuterol/ipratropium nebulizer. 6. A. fib with RVR, paroxysmal atrial fibrillation. Continue metoprolol and amiodarone will continue Eliquis as well. 7. Hypertension. Continue Lopressor 50 mg 3 times daily, hydralazine 50 mg 3 times daily. 8. Diabetes mellitus type 2 uncontrolled with hypoglycemia. Continue NovoLog scale before meals and at bedtime. Hold Actos 30 mg daily. 9. Diabetic neuropathy. 10. Recurrent depression. 11. HYperlipidemia: Continue patient on Lipitor 40 mg a day. 12. Chronic pain syndrome: Has been on hydrocodone continue medication. 13. Possible cardiac amyloidosis. Cardiology is following and may consider right-sided heart catheterization. 14. DVT prophylaxis: Patient remain on Eliquis. 15. GI prophylaxis: Patient be on Pepcid 20 mg daily. CODE STATUS: Full code DISCHARGE PLAN Home with [facility]. Impression and plan of care have been directed as dictated by the signing physician. Kathe North nurse practitioner acting as scribe for signing physician. Objective - Vital Signs Vital signs: Vital Signs Temp 98.3 F 01/27/21 08:51 Pulse 67 01/27/21 08:51 Resp 18 01/27/21 08:51 BP 121/63 01/27/21 08:51 Pulse Ox 97 01/27/21 08:51 Intake & Output 01/26/21 01/27/21 01/27/21 18:59 06:59 18:59 Intake Total 480 Output Total 1050 650 Balance -570 -650 Weight 86.7 kg Intake: Oral 480 Output: Urine 1050 650 Other: # Voids 1 - Labs CBC & Chem 7: 01/26/21 07:00 01/26/21 07:00 Labs: Abnormal Lab Results - Last 24 Hours (Table) 01/26/21 01/26/21 01/26/21 Range/Units 11:46 16:36 19:55 POC Glucose (mg/dL) 117 H 127 H 110 H (75-99) mg/dL 01/27/21 Range/Units 06:09 POC Glucose (mg/dL) 130 H (75-99) mg/dL
[2021-01-27] MEDS: SENNOSIDES-DOCUSATE SODIUM 1 EACH TAB PO SCH ×2 (12:48→21:26)
--- NOTE | 2021-01-27 12:53 | P.PN ---
Subjective Progress Note Date: 01/27/21 Principal diagnosis: Acute exacerbation of CHF 60-year-old black female with history of COPD, CHF, chronic atrial fibrillation, pleural effusion, diabetes, as well as gastroesophageal reflux disease, hypertension, hyperlipidemia, and osteoarthritis, who presents to the emergency department on January 24, with complaints of increasing shortness of breath. In addition, she complains of lower extremity edema, and increasing abdominal girth. The patient was seen by me in consultation in the ER on January 04. At that time, she came in with similar complaints of shortness of breath. She was much more short of breath at that time, and required BiPAP therapy. Prior to that, she was a [facility], for 5 days, at which time, she had a left- sided thoracentesis with 800 mL removed, and also that time had a cardioversion for atrial fibrillation. During her last admission here, after I saw her in consultation, my partner, did a left-sided thoracentesis and 650 mL was removed. Currently, she is resting comfortably in the room. She is on 6 L nasal cannula. She's not receiving any IV fluids. The patient is getting Lasix 40 mg IV push every 8 hours. White count 5.3, he will 9.4, hematocrit 32.7, and platelet count 3 80,000. PT 12.8 INR 1.2 and PTT 27.2. Sodium potassium chloride normal CO2 36 anion gap 7 BUN 33, and creatinine 1.70. Troponin was 0.043 and the N-terminal proBNP was 13,900. Chest x-ray showed a pattern of diffuse pulmonary edema. She likely has bilateral effusions, left greater than right. The patient is seen today 01/25/2021 in follow-up on the selective care unit. She is currently resting quite comfortably in bed. Awake and alert in no acute distress. Maintaining good O2 saturations in the upper 90s on 4 L/m per nasal cannula. Afebrile. Chest x-ray reveals improving right lower lobe infiltrate. Moderate left-sided pleural effusion stable. Cardiomegaly. Remains on IV diuretics. Kaylin on bronchodilators. She is anticoagulated with Eliquis. Antibiotics in the form of Cipro. NicoDerm patches in place. The patient is seen today 01/26/2021 in follow-up on the selective care unit. She is awake and alert in no acute distress. Currently resting comfortably in bed. Still having some ongoing issues with abdominal discomfort. No worsening shortness of breath, cough or congestion. 18 in good O2 saturations in the mid to upper 90s on 4 L/m per nasal cannula. She's afebrile. White count 3.1. Hemoglobin 9.0. Sodium 1:30. Potassium 4.8. Creatinine 1.86. Computed tomography scan of the abdomen and pelvis reveals severe anasarca and body wall edema. Cardiomegaly with moderate right pleural effusion and small left effusions. Trace. Hepatic ascites. Findings suggest third spacing of fluid volume overload state/CHF. Atelectasis of the lower lungs. Colonic diverticulosis without acute diverticulitis. She remains on bronchodilators, IV diuretics, anticoagulated with Eliquis. NicoDerm patch in place. On 01/27/2021 patient seen in follow-up on selective care unit, she is awake and alert, she was on 5 L of oxygen this morning with a pulse ox of 95% which had since been turned down to 3 L. She states her breathing continues to improve, she is on Lasix 40 mg IV push every 12 hours in addition to Zaroxolyn, she is in -1.2 L over the last 24 hours. Breathing comfortably. Denies any chest pain. No fever or chills, no cough, no phlegm production. Wore the BiPAP support very briefly last evening, otherwise has been off BiPAP support and on a few liters of supplemental oxygen overnight. Today's chest x-ray shows low lung volumes, and bibasilar opacities, was subsegmental atelectasis in the right lower lobe, and small to moderate-sized left pleural effusion without significant change co mpared to previous exam. No new labs today. She remains on her home dose Eliquis. She is on breathing treatments. Her abdominal distention and bilateral lower extremity edema has significantly improved. Objective - Vital Signs Vital signs: Vital Signs Temp 98.3 F 01/27/21 08:51 Pulse 63 01/27/21 11:10 Resp 18 01/27/21 11:10 BP 134/71 01/27/21 11:10 Pulse Ox 93 L 01/27/21 11:10 Intake & Output 01/26/21 01/27/21 01/27/21 18:59 06:59 18:59 Intake Total 480 118 Output Total 1050 650 Balance -570 -650 118 Weight 86.7 kg Intake: Oral 480 118 Output: Urine 1050 650 Other: # Voids 1 - Exam GENERAL EXAM: Alert, very pleasant, 60-year-old -[place] female, on 3 L of oxygen resting in bed, comfortable in no apparent distress. HEAD: Normocephalic/atraumatic. EYES: Normal reaction of pupils, equal size. Conjunctiva pink, sclera white. NOSE: Clear with pink turbinates. THROAT: No erythema or exudates. NECK: No masses, no JVD, no thyroid enlargement, no adenopathy. CHEST: No chest wall deformity. Symmetrical expansion. LUNGS: Equal air entry with bibasilar crackles, diminished breath sounds at the bases CVS: Regular rate and rhythm, normal S1 and S2, no gallops, no murmurs, no rubs ABDOMEN: Soft, nontender. No hepatosplenomegaly, normal bowel sounds, no guarding or rigidity. EXTREMITIES: No clubbing, no edema, no cyanosis, 2+ pulses and upper and lower extremities. MUSCULOSKELETAL: Muscle strength and tone normal. SPINE: No scoliosis or deformity SKIN: No rashes CENTRAL NERVOUS SYSTEM: Alert and oriented -3. No focal deficits, tone is normal in all 4 extremities. PSYCHIATRIC: Alert and oriented -3. Appropriate affect. Intact judgment and insight. - Labs CBC & Chem 7: 01/26/21 07:00 01/26/21 07:00 Labs: Abnormal Lab Results - Last 24 Hours (Table) 01/26/21 01/26/21 01/27/21 Range/Units 16:36 19:55 06:09 POC Glucose (mg/dL) 127 H 110 H 130 H (75-99) mg/dL 01/27/21 Range/Units 11:48 POC Glucose (mg/dL) 156 H (75-99) mg/dL Assessment and Plan Plan: Assessment: #1. Acute hypoxic respiratory failure related to acute exacerbation of diastol ic CHF, severe anasarca, and recurrent pleural effusions #2. Recent hospitalization at [facility] from 01/04/2021 through 01/10/2021 for acute exacerbation of CHF with diastolic dysfunction #3. Recent admission to [facility] in early December for cardioversion, and a left-sided thoracentesis #4. Chronic atrial fibrillation on Eliquis #5. COPD, on home oxygen at 3 L #6. Hypertension #7. Hyperlipidemia #8. Bilateral pleural effusions, with previous history of thoracentesis on the left at the [facility] in December 2020 and right-sided thoracentesis on 01/07/2021 with removal of 900 mL of fluid and left-sided thoracentesis on 01/08/2021 with removal of 650 mL of fluid by Dr. Aguilar. Right-sided thoracentesis pleural fluid was transudate, however the pleural fluid cultures are positive for pseudomonas without clear evidence of infection, and patient has completed a course of ciprofloxacin #9. Diabetes mellitus type 2 with diabetic neuropathy and diabetic retinopathy #10. Depression #11. Chronic diastolic CHF with severe concentric LVH, pulmonary hypertension #12. History of sleep apnea syndrome #13. Chronic kidney disease stage III Plan: Continue current medical treatment Continue bring treatments Continue diuretics Breathing is improving She is maintaining negative fluid balance Follow renal profile and electrolytes BiPAP support as needed We'll continue to follow I performed a history & physical examination of the patient and discussed their management with my nurse practitioner, Argelia Alvarado. I reviewed the nurse practitioner's note and agree with the documented findings and plan of care. Lung sounds are positive for diminished breath sounds throughout the lung valdez. The findings and the impression was discussed with the patient. I attest to the documentation by the nurse practitioner. Time with Patient: Greater than 30
--- NOTE | 2021-01-27 13:19 | P.PN ---
Subjective 60-year-old female who was admitted to the emergency department with complaints of progressively worsening shortness of breath over the last few days which suddenly became worse this morning. She has a history of hypertension, hyperlipidemia and diabetes. History of a cardiac catheterization in 2016 with no evidence of obstructive CAD at that time. She'll history of chronic tobacco use and has very recently stopped smoking. She's had recent multiple admissions to the hospital. She was admitted to [facility] and underwent th oracentesis and cardioversion. She was subsequently readmitted here last month with tachycardia and shortness of breath was noted to be in atrial fibrillation with rapid ventricular response. She was initiated on amiodarone at that time. She also underwent thoracentesis during her previous admission. She and echocardiogram done in October of this year and at that time her ejection fraction was 55-60% with severe pulmonary hypertension measuring 69 mmHg. Over the last few days she's been more short of breath with some tightness in her chest and pressure as well as some abdominal bloating. She denies any clear complaints of orthopnea but does wake up feeling short of breath through the night. Laboratory values on admission showed hemoglobin 9.4, BUN 33, creatinine 1.7, troponin 0.043 and NT proBNP of 13,900 which was previously over 30,000. EKG on admission showed sinus rhythm with prolonged QT interval. Chest x-ray impression interval marked progression of diffuse bilateral pleural parenchymal changes correlate for CHF with pulmonary edema versus diffuse pneumonia of her review of the films this patient has left-sided pleural effusion. She has been initiated on IV Lasix and BiPAP. Upon examination patient appears comfortable. She is able to speak in full sentences but does have some mild dyspnea with talking. She has very trace edema and doesn't feel that that is worse than usual. Denies any chest pain but does feel some pressure in her chest with breathing. Denies any dizziness or lightheadedness. Denies any palpitations or feeling her heart racing. Echocardiogram on 10/2020 revealed EF 55-60%, severe concentric left ventricular hypertrophy, paradoxical motion of the right ventricular septum consistent with right ventricular overload and/or elevated right ventricular end diastolic pressure moderate tricuspid regurgitation, severe pulmonary hypertension with RVSP 69mmHg 01/26/2021. Patient is continued on Lasix 40 mg IV twice a day. She does admit to occasional fullness in her stomach. She admits to mainly feeling short of breath with minimal exertion such as getting up from the bathroom. She denies any chest pain or pressure. Creatinine today mildly increased from 1.7-1.86. 01/27 Patient seen and examined and admits she feels somewhat better than yesterday. Continues of diuresis well. Lab work did not back from today. No chest pain or pressure. Has been up walking with improvement in her dyspnea on exertion. GENERAL: Well-appearing, well-nourished and in no acute distress. NECK: Supple without bilateral JVD or thyromegaly. LUNGS: Diminished in the bases. no wheezes or rhonchi. Respiration equal and unlabored. HEART: Regular rate and rhythm, systolic murmur noted. S1 and S2 heard. SKIN: right back thoracentesis site covered with bandaid no hematoma or pain noted, left back thoracentesis site covered with bandaid no hematoma EXTREMITIES: Normal range of motion, mild bilateral lower extremity pitting edema. No clubbing or cyanosis. Peripheral pulses intact. ASSESSMENT Atrial tachycardia, currently maintaining sinus mechanism Acute on chronic diastolic heart failure Hypertension Diabetes mellitus Dyslipidemia Proximal atrial fibrillation on long-term anticoagulation Chronic kidney disease Severe concentric left ventricular hypertrophy, Concern of possible amyloidosis with low voltage on EKG and significant LVH on echo s/p right sided thoracentesis 01/07 with 900mL removed s/p left sided thoracentesis 01/08 with 650mL removed Pulmonary hypertension likely from left-sided heart failure PLAN Reviewing patient's Echocardiogram and EKG patient with low voltage and severe LVH seen on echo, there is concern for cardiac amyloidosis. Continue with diuretics however may be near restrictive pattern with extreme sensitivities to volume status. If continued ambiguity, may consider right heart catheterization as this appears to be predominantly left-sided heart failure however does not have overly dilated left atrium which would go more with restrictive filling pattern. Likely pulmonary hypertension is related to left-sided heart failure however less likely could be related to group 1 pulmonary hypertension. Continue IV diuresis and monitor creatinine closely. Possible discharge in 24 reported hours if continues improving creatinine stays stable. Objective - Vital Signs Vital signs: Vital Signs Temp 98.3 F 01/27/21 08:51 Pulse 63 01/27/21 11:10 Resp 18 01/27/21 11:10 BP 134/71 01/27/21 11:10 Pulse Ox 93 L 01/27/21 11:10 Intake & Output 01/26/21 01/27/21 01/27/21 18:59 06:59 18:59 Intake Total 480 118 Output Total 1050 650 Balance -570 -650 118 Weight 86.7 kg Intake: Oral 480 118 Output: Urine 1050 650 Other: # Voids 1 - Labs CBC & Chem 7: 01/26/21 07:00 01/26/21 07:00 Labs: Abnormal Lab Results - Last 24 Hours (Table) 01/26/21 01/26/21 01/27/21 Range/Units 16:36 19:55 06:09 POC Glucose (mg/dL) 127 H 110 H 130 H (75-99) mg/dL 01/27/21 Range/Units 11:48 POC Glucose (mg/dL) 156 H (75-99) mg/dL
[2021-01-27 16:08] LABS: Magnesium 2.5 mg/dL (1.6-2.3)
[2021-01-27 16:28] LABS: Potassium 4.8 mmol/L (3.5-5.1)
[2021-01-27 17:00] LABS: Glucose,Whole Blood 164 mg/dL (75-99)
[2021-01-27 19:25] LABS: Appearance,Urine Clear (Clear); Bilirubin,Urine Negative (Negative); Blood,Urine Negative (Negative); Color,Urine Yellow; Glucose,Urine (UA) Negative (Negative); Ketones,Urine Negative (Negative); Leukocyte Esterase,Urine Negative (Negative); Mucus,Urine Rare /hpf; Nitrite,Urine Negative (Negative); PH, Urine 6.5 (5.0-8.0); Protein,Urine 1+ (Negative); RBC,Urine <1 /hpf (0-5); Specific Gravity,Urine 1.011 (1.001-1.035); Squamous Epithelial Cell,Urine <1 /hpf (0-4); Urobilinogen,Urine <2.0 mg/dL (<2.0); WBC,Urine 1 /hpf (0-5)
[2021-01-27 20:54] LABS: Glucose,Whole Blood 194 mg/dL (75-99)
[2021-01-27] MEDS: MONTELUKAST 10 MG TAB PO SCH (21:26)
[2021-01-27] MEDS: INSULIN DETEMIR (LEVEMIR) 100 UNIT/ML SYR SQ SCH (21:29)
[2021-01-28 06:10] LABS: Glucose,Whole Blood 115 mg/dL (75-99)
[2021-01-28] MEDS: INSULIN ASPART (NovoLOG) 100 UNIT/ML VIAL SQ SCH ×4 (06:46→23:07)
[2021-01-28] MEDS: PANTOPRAZOLE 40 MG TABLET PO SCH (06:46)
[2021-01-28 07:54] LABS: Anisocytosis Slight; HCT 31.4 % (34.0-46.0); HGB 9.2 gm/dL (11.4-16.0); Hypochromasia Marked; MCH 25.4 pg (25.0-35.0); MCHC 29.4 g/dL (31.0-37.0); MCV 86.6 fL (80.0-100.0); Mean Platelet Volume 8.3; Platelet Count 378 k/uL (150-450); RBC 3.62 m/uL (3.80-5.40); RDW 18.7 % (11.5-15.5); WBC 3.4 k/uL (3.8-10.6)
[2021-01-28 08:05] LABS: Calcium 8.9 mg/dL (8.4-10.2); Potassium 4.4 mmol/L (3.5-5.1)
[2021-01-28] MEDS: IPRATROPIUM-ALBUTEROL 3 ML NEB INHALATION SCH ×4 (09:16→19:59)
[2021-01-28] MEDS: AMIODARONE 200 MG TAB PO SCH (09:26)
[2021-01-28] MEDS: hydrALAZINE HCL 50 MG TAB PO SCH ×3 (09:26→23:07)
[2021-01-28] MEDS: NORTRIPTYLINE 25 MG CAP PO SCH (09:26)
[2021-01-28] MEDS: FUROSEMIDE 10 MG/ML 4 ML VIAL IV SCH ×2 (09:26→21:03)
[2021-01-28] MEDS: LORATADINE 10 MG TAB PO SCH (09:26)
[2021-01-28] MEDS: NICOTINE 14MG/24HR PATCH TRANSDERM SCH (09:26)
[2021-01-28] MEDS: APIXABAN 5 MG TAB PO SCH ×2 (09:26→21:03)
[2021-01-28] MEDS: ATORVASTATIN 40 MG TAB PO SCH (09:26)
[2021-01-28] MEDS: METOPROLOL TARTRATE 50 MG TAB PO SCH ×3 (09:26→23:07)
[2021-01-28] MEDS: POTASSIUM CHLORIDE ER 10 MEQ TAB.ER.PRT PO SCH ×2 (09:27→21:03)
[2021-01-28] MEDS: ISOSORBIDE MONONITRATE ER 30 MG TAB.ER.24H PO SCH (09:27)
--- NOTE | 2021-01-28 10:32 | US ---
EXAMINATION TYPE: US chest DATE OF EXAM: 01/28/2021 COMPARISON: Radiograph 01/27/2021 CLINICAL HISTORY: 60-year-old female bilat pleural effusion. TECHNIQUE: Targeted ultrasound of the posterior lower bilateral hemithoraces EXAM MEASUREMENTS: Right Pleural Effusion pocket size: 12.2 cm Right skin surface to fluid distance: 3.0 cm. Atelectatic lung tissue visualized 2 cm in fluid p ocket. Left Pleural Effusion pocket size: 8 cm. Atelectatic lung tissue visualized 6 mm in fluid pocket. Left skin surface to fluid distance: 2.9 cm Right side marked for possible thoracentesis outside the dept. Pulmonologists are able to review the images in the patient?s EMR. IMPRESSIONS: Small to moderate pleural effusions, right greater than left.
[2021-01-28 11:28] LABS: Glucose,Whole Blood 127 mg/dL (75-99)
--- NOTE | 2021-01-28 12:11 | P.PN ---
Subjective 60-year-old female who was admitted to the emergency department with complaints of progressively worsening shortness of breath over the last few days which suddenly became worse this morning. She has a history of hypertension, hyperlipidemia and diabetes. History of a cardiac catheterization in 2016 with no evidence of obstructive CAD at that time. She'll history of chronic tobacco use and has very recently stopped smoking. She's had recent multiple admissions to the hospital. She was admitted to [facility] and underwent t horacentesis and cardioversion. She was subsequently readmitted here last month with tachycardia and shortness of breath was noted to be in atrial fibrillation with rapid ventricular response. She was initiated on amiodarone at that time. She also underwent thoracentesis during her previous admission. She and echocardiogram done in October of this year and at that time her ejection fraction was 55-60% with severe pulmonary hypertension measuring 69 mmHg. Over the last few days she's been more short of breath with some tightness in her chest and pressure as well as some abdominal bloating. She denies any clear complaints of orthopnea but does wake up feeling short of breath through the night. Laboratory values on admission showed hemoglobin 9.4, BUN 33, creatinine 1.7, troponin 0.043 and NT proBNP of 13,900 which was previously over 30,000. EKG on admission showed sinus rhythm with prolonged QT interval. Chest x-ray impression interval marked progression of diffuse bilateral pleural parenchymal changes correlate for CHF with pulmonary edema versus diffuse pneumonia of her review of the films this patient has left-sided pleural effusion. She has been initiated on IV Lasix and BiPAP. Upon examination patient appears comfortable. She is able to speak in full sentences but does have some mild dyspnea with talking. She has very trace edema and doesn't feel that that is worse than usual. Denies any chest pain but does feel some pressure in her chest with breathing. Denies any dizziness or lightheadedness. Denies any palpitations or feeling her heart racing. Echocardiogram on 10/2020 revealed EF 55-60%, severe concentric left ventricular hypertrophy, paradoxical motion of the right ventricular septum consistent with right ventricular overload and/or elevated right ventricular end diastolic pressure moderate tricuspid regurgitation, severe pulmonary hypertension with RVSP 69mmHg. 01/28/2021 Pt seen and examined resting comfortably in bed in no acute distress. She feels like her breathing is improving daily, but not entirely back to baseline. She denies chest pain, dizziness or palpitations. Blood pressure 134/77 heart rate 68 afebrile maintaining oxygen saturation on nasal cannula. Laboratory data reviewed, WBC 3.4, hemoglobin 9.2, platelets 378, sodium 138, potassium 4.4, creatinine 2.12 and TSH 3.53. Ultrasound of the chest obtained this morning rev eals right pleural effusion pocket size of 12.2 cm and left pleural effusion pocket size of 8 cm. 24-hr urine output 1.1 liters maintaining a negative fluid balance. GENERAL: Well-appearing, well-nourished and in no acute distress. NECK: Supple with bilateral JVD. LUNGS: Bibasilar rales, no wheezes or rhonchi. Respirations equal and unlabored. HEART: Regular rate and rhythm, systolic murmur noted. S1 and S2 heard. SKIN: right back thoracentesis site covered with bandaid no hematoma or pain no rajinder, left back thoracentesis site covered with bandaid no hematoma EXTREMITIES: Normal range of motion, trace bilateral lower extremity pitting edema. No clubbing or cyanosis. Peripheral pulses intact. ASSESSMENT Atrial tachycardia, currently maintaining sinus mechanism Acute on chronic diastolic heart failure Hypertension Diabetes mellitus Dyslipidemia Proximal atrial fibrillation on long-term anticoagulation Chronic kidney disease Severe concentric left ventricular hypertrophy, Concern of possible amyloidosis with low voltage on EKG and significant LVH on echo s/p right sided thoracentesis 01/07 with 900mL removed s/p left sided thoracentesis 01/08 with 650mL removed Pulmonary hypertension likely from left-sided heart failure PLAN Continue IV diuresis. Follow renal function and electrolytes daily. If continued ambiguity, may consider right heart catheterization as this appears to be predominantly left-sided heart failure however does not have overly dilated left atrium which would go more with restrictive filling pattern. Thoracentesis recommendations per pulmonary care team. Nurse Practitioner note has been reviewed, I agree with a documented findings and plan of care. Patient was seen and examined. Objective - Vital Signs Vital signs: Vital Signs Temp 97.8 F 01/28/21 05:03 Pulse 68 01/28/21 09:30 Resp 16 01/28/21 08:00 BP 134/77 01/28/21 08:00 Pulse Ox 98 01/28/21 00:00 Intake & Output 08/15/21 08/16/21 08/16/21 18:59 06:59 18:59 Intake Total 486 360 Output Total 550 600 1 Balance -64 -600 359 Weight 85.2 kg Intake: Oral 486 360 Output: Urine 550 600 Uretheral (Hyatt) 300 Urine/Stool Mix 1 Other: # Voids 1 # Bowel Movements 1 - Labs CBC & Chem 7: 01/28/21 07:22 01/28/21 07:22 Labs: Abnormal Lab Results - Last 24 Hours (Table) 01/27/21 01/27/21 01/27/21 Range/Units 15:20 16:58 18:56 WBC (3.8-10.6) k/uL RBC (3.80-5.40) m/uL Hgb (11.4-16.0) gm/dL Hct (34.0-46.0) % MCHC (31.0-37.0) g/dL RDW (11.5-15.5) % Chloride (98-107) mmol/L Carbon Dioxide (22-30) mmol/L BUN (7-17) mg/dL Creatinine (0.52-1.04) mg/dL POC Glucose (mg/dL) 164 H (75-99) mg/dL Magnesium 2.5 H (1.6-2.3) mg/dL Urine Protein 1+ H (Negative) Urine Mucus Rare H (None) /hpf 01/27/21 01/28/21 01/28/21 Range/Units 20:53 06:08 07:22 WBC 3.4 L (3.8-10.6) k/uL RBC 3.62 L (3.80-5.40) m/uL Hgb 9.2 L (11.4-16.0) gm/dL Hct 31.4 L (34.0-46.0) % MCHC 29.4 L (31.0-37.0) g/dL RDW 18.7 H (11.5-15.5) % Chloride (98-107) mmol/L Carbon Dioxide (22-30) mmol/L BUN (7-17) mg/dL Creatinine (0.52-1.04) mg/dL POC Glucose (mg/dL) 194 H 115 H (75-99) mg/dL Magnesium (1.6-2.3) mg/dL Urine Protein (Negative) Urine Mucus (None) /hpf 01/28/21 01/28/21 Range/Units 07:22 11:26 WBC (3.8-10.6) k/uL RBC (3.80-5.40) m/uL Hgb (11.4-16.0) gm/dL Hct (34.0-46.0) % MCHC (31.0-37.0) g/dL RDW (11.5-15.5) % Chloride 89 L (98-107) mmol/L Carbon Dioxide 42 H* (22-30) mmol/L BUN 51 H (7-17) mg/dL Creatinine 2.12 H (0.52-1.04) mg/dL POC Glucose (mg/dL) 127 H (75-99) mg/dL Magnesium (1.6-2.3) mg/dL Urine Protein (Negative) Urine Mucus (None) /hpf
[2021-01-28] MEDS: SENNOSIDES-DOCUSATE SODIUM 1 EACH TAB PO SCH ×2 (12:26→23:07)
--- NOTE | 2021-01-28 12:45 | P.PN ---
Subjective Progress Note Date: 01/28/21 Principal diagnosis: Acute exacerbation of CHF 60-year-old black female with history of COPD, CHF, chronic atrial fibrillation, pleural effusion, diabetes, as well as gastroesophageal reflux disease, hypertension, hyperlipidemia, and osteoarthritis, who presents to the emergency department on January 24, with complaints of increasing shortness of breath. In addition, she complains of lower extremity edema, and increasing abdominal girth. The patient was seen by me in consultation in the ER on January 04. At that time, she came in with similar complaints of shortness of breath. She was much more short of breath at that time, and required BiPAP therapy. Prior to that, she was a [facility], for 5 days, at which time, she had a left- sided thoracentesis with 800 mL removed, and also that time had a cardioversion for atrial fibrillation. During her last admission here, after I saw her in consultation, my partner, did a left-sided thoracentesis and 650 mL was removed. Currently, she is resting comfortably in the room. She is on 6 L nasal cannula. She's not receiving any IV fluids. The patient is getting Lasix 40 mg IV push every 8 hours. White count 5.3, he will 9.4, hematocrit 32.7, and platelet count 3 80,000. PT 12.8 INR 1.2 and PTT 27.2. Sodium potassium chloride normal CO2 36 anion gap 7 BUN 33, and creatinine 1.70. Troponin was 0.043 and the N-terminal proBNP was 13,900. Chest x-ray showed a pattern of diffuse pulmonary edema. She likely has bilateral effusions, left greater than right. The patient is seen today 01/25/2021 in follow-up on the selective care unit. She is currently resting quite comfortably in bed. Awake and alert in no acute distress. Maintaining good O2 saturations in the upper 90s on 4 L/m per nasal cannula. Afebrile. Chest x-ray reveals improving right lower lobe infiltrate. Moderate left-sided pleural effusion stable. Cardiomegaly. Remains on IV diuretics. Kaylin on bronchodilators. She is anticoagulated with Eliquis. Antibiotics in the form of Cipro. NicoDerm patches in place. The patient is seen today 01/26/2021 in follow-up on the selective care unit. She is awake and alert in no acute distress. Currently resting comfortably in bed. Still having some ongoing issues with abdominal discomfort. No worsening shortness of breath, cough or congestion. 18 in good O2 saturations in the mid to upper 90s on 4 L/m per nasal cannula. She's afebrile. White count 3.1. Hemoglobin 9.0. Sodium 1:30. Potassium 4.8. Creatinine 1.86. Computed tomography scan of the abdomen and pelvis reveals severe anasarca and body wall edema. Cardiomegaly with moderate right pleural effusion and small left effusions. Trace. Hepatic ascites. Findings suggest third spacing of fluid volume overload state/CHF. Atelectasis of the lower lungs. Colonic diverticulosis without acute diverticulitis. She remains on bronchodilators, IV diuretics, anticoagulated with Eliquis. NicoDerm patch in place. On 01/27/2021 patient seen in follow-up on selective care unit, she is awake and alert, she was on 5 L of oxygen this morning with a pulse ox of 95% which had since been turned down to 3 L. She states her breathing continues to improve, she is on Lasix 40 mg IV push every 12 hours in addition to Zaroxolyn, she is in -1.2 L over the last 24 hours. Breathing comfortably. Denies any chest pain. No fever or chills, no cough, no phlegm production. Wore the BiPAP support very briefly last evening, otherwise has been off BiPAP support and on a few liters of supplemental oxygen overnight. Today's chest x-ray shows low lung volumes, and bibasilar opacities, was subsegmental atelectasis in the right lower lobe, and small to moderate-sized left pleural effusion without significant change co mpared to previous exam. No new labs today. She remains on her home dose Eliquis. She is on breathing treatments. Her abdominal distention and bilateral lower extremity edema has significantly improved. On 01/28/2021 patient seen in follow-up on selective care unit. She is awake and alert in no acute distress, she remains on Lasix 40 mg every 12 hours, and Zaroxolyn, and she is maintaining a negative fluid balance, she is in -664 not fluid balance over the last 24 hours. No edema in lower extremities, abdominal distention and anasarca have significantly improved, she is breathing much more comfortably, she has gotten up out of bed and set up in the chair, but still spends quite a bit of time in bed. No complaints of chest pain, lung sounds reveal fine bibasilar crackles. His labs have been reviewed, with little confused 3.4, hemoglobin is 9.2, potassium is 4.4, chloride 89, CO2 is 42, BUN is 51, creatinine is 2.12. Patient remains in sinus mechanism, she is on oral anticoagulation the form of Eliquis, she remains on nebulized bronchodilators. Kaylin on oral amiodarone 200 mg once daily for rate control, she is on metoprolol 50 mg 3 times a day. Is being followed by cardiology. Objective - Vital Signs Vital signs: Vital Signs Temp 97.8 F 01/28/21 05:03 Pulse 68 01/28/21 12:23 Resp 16 01/28/21 08:00 BP 134/77 01/28/21 08:00 Pulse Ox 98 01/28/21 00:00 Intake & Output 01/27/21 01/28/21 01/28/21 18:59 06:59 18:59 Intake Total 486 360 Output Total 550 600 1 Balance -64 -600 359 Weight 85.2 kg Intake: Oral 486 360 Output: Urine 550 600 Uretheral (Hyatt) 300 Urine/Stool Mix 1 Other: # Voids 1 # Bowel Movements 1 - Exam GENERAL EXAM: Alert, very pleasant, 60-year-old -[place] female, on 3 L of oxygen resting in bed, comfortable in no apparent distress. HEAD: Normocephalic/atraumatic. EYES: Normal reaction of pupils, equal size. Conjunctiva pink, sclera white. NOSE: Clear with pink turbinates. THROAT: No erythema or exudates. NECK: No masses, no JVD, no thyroid enlargement, no adenopathy. CHEST: No chest wall deformity. Symmetrical expansion. LUNGS: Equal air entry with bibasilar crackles, diminished breath sounds at the bases CVS: Regular rate and rhythm, normal S1 and S2, no gallops, no murmurs, no rubs ABDOMEN: Soft, nontender. No hepatosplenomegaly, normal bowel sounds, no guarding or rigidity. EXTREMITIES: No clubbing, no edema, no cyanosis, 2+ pulses and upper and lower extremities. MUSCULOSKELETAL: Muscle strength and tone normal. SPINE: No scoliosis or deformity SKIN: No rashes CENTRAL NERVOUS SYSTEM: Alert and oriented -3. No focal deficits, tone is normal in all 4 extremities. PSYCHIATRIC: Alert and oriented -3. Appropriate affect. Intact judgment and insight. - Labs CBC & Chem 7: 01/28/21 07:22 01/28/21 07:22 Labs: Abnormal Lab Results - Last 24 Hours (Table) 01/27/21 01/27/21 01/27/21 Range/Units 15:20 16:58 18:56 WBC (3.8-10.6) k/uL RBC (3.80-5.40) m/uL Hgb (11.4-16.0) gm/dL Hct (34.0-46.0) % MCHC (31.0-37.0) g/dL RDW (11.5-15.5) % Chloride (98-107) mmol/L Carbon Dioxide (22-30) mmol/L BUN (7-17) mg/dL Creatinine (0.52-1.04) mg/dL POC Glucose (mg/dL) 164 H (75-99) mg/dL Magnesium 2.5 H (1.6-2.3) mg/dL Urine Protein 1+ H (Negative) Urine Mucus Rare H (None) /hpf 01/27/21 01/28/21 01/28/21 Range/Units 20:53 06:08 07:22 WBC 3.4 L (3.8-10.6) k/uL RBC 3.62 L (3.80-5.40) m/uL Hgb 9.2 L (11.4-16.0) gm/dL Hct 31.4 L (34.0-46.0) % MCHC 29.4 L (31.0-37.0) g/dL RDW 18.7 H (11.5-15.5) % Chloride (98-107) mmol/L Carbon Dioxide (22-30) mmol/L BUN (7-17) mg/dL Creatinine (0.52-1.04) mg/dL POC Glucose (mg/dL) 194 H 115 H (75-99) mg/dL Magnesium (1.6-2.3) mg/dL Urine Protein (Negative) Urine Mucus (None) /hpf 01/28/21 01/28/21 Range/Units 07:22 11:26 WBC (3.8-10.6) k/uL RBC (3.80-5.40) m/uL Hgb (11.4-16.0) gm/dL Hct (34.0-46.0) % MCHC (31.0-37.0) g/dL RDW (11.5-15.5) % Chloride 89 L (98-107) mmol/L Carbon Dioxide 42 H* (22-30) mmol/L BUN 51 H (7-17) mg/dL Creatinine 2.12 H (0.52-1.04) mg/dL POC Glucose (mg/dL) 127 H (75-99) mg/dL Magnesium (1.6-2.3) mg/dL Urine Protein (Negative) Urine Mucus (None) /hpf Assessment and Plan Plan: Assessment: #1. Acute hypoxic respiratory failure related to acute exacerbation of diastolic CHF, severe anasarca, and recurrent pleural effusions #2. Recent hospitalization at [facility] from 01/04/2021 through 01/10/2021 for acute exacerbation of CHF with diastolic dysfunction #3. Recent admission to [facility] in early December for cardioversion, and a left-sided thoracentesis #4. Chronic atrial fibrillation on Eliquis #5. COPD, on home oxygen at 3 L #6. Hypertension #7. Hyperlipidemia #8. Bilateral pleural effusions, with previous history of thoracentesis on the left at the [facility] in December 2020 and right-sided thoracentesis on 01/07/2021 with removal of 900 mL of fluid and left-sided thoracentesis on 01/08/2021 with removal of 650 mL of fluid by Dr. Aguilar. Right-sided thoracentesis pleural fluid was transudate, however the pleural fluid cultures are positive for pseudomonas without clear evidence of infection, and patient has completed a course of ciprofloxacin #9. Diabetes mellitus type 2 with diabetic neuropathy and diabetic retinopathy #10. Depression #11. Chronic diastolic CHF with severe concentric LVH, pulmonary hypertension #12. History of sleep apnea syndrome #13. Chronic kidney disease stage III Plan: Ultrasound of the chest have been reviewed Patient has a small to moderate-sized pleural effusions, and atelectatic lung tissue visualized in the fluid pocket No plans for thoracentesis right now Continue medical treatment continued diuretics Weaning FiO2 Continue oral anticoagulation We'll continue to follow I performed a history & physical examination of the patient and discussed their management with my nurse practitioner, Argelia Alvarado. I reviewed the nurse practitioner's note and agree with the documented findings and plan of care. Lung sounds are positive for diminished breath sounds throughout the lung valdez. The findings and the impression was discussed with the patient. I attest to the documentation by the nurse practitioner. Time with Patient: Less than 30
[2021-01-28 16:31] LABS: Glucose,Whole Blood 131 mg/dL (75-99)
[2021-01-28] MEDS: HYDROcodone/APAP 10-325MG 1 EACH TAB PO PRN (17:02)
--- NOTE | 2021-01-28 17:26 | P.PN ---
Subjective Progress Note Date: 01/28/21 HISTORY OF PRESENT ILLNESS This is a 60-year-old female patient at [facility] with past medical history significant for COPD, diabetes mellitus type 2, gastroesophageal reflux disease, hypertension, hyperlipidemia, generalized osteoarthritis, remote history of tobacco use and dependence. Patient was hospitalized recently at [facility] for respiratory failure found to have left-sided pleural effusion thoracentesis of 800 mL was done also patient ended up going for cardioversion for chronic A. fib she was sent home after been in for 5 days. Patient was rehospitalized at [facility] between 723 to 01/10/2021 for A. fib with RVR, respiratory failure with non-STEMI and CHF exacerbation. Patient was seen cardiology and pulmonary done well she was kept on BiPAP for a good part of her hospitalization at the time. Patient was kept on heavy doses o f IV diuretics. On 01/08: Patient had thoracentesis of the left side for 650 mL was mostly transudate cytology was negative for CVA. With her symptoms been well controlled time patient was sent home on Bumex 2 mg daily along with ciprofloxacin 500 mg twice a day for 7 days was to be kept on Eliquis along with metoprolol titrate 50 mg 3 times a day which kept her pulse rate well controlled. Patient [facility] 01/24 2021 with severe dyspnea and shortness of breath has been progressively getting worse for the last 3 days she was quite hypoxic when process helper was at the scene. Patient ended up coming to the emergency department require to go on BiPAP for the whole time after 2 or 3 round of respiratory treatment along with titrating her O2 on BiPAP Patient Started Getting Slightly Better. Patient Was Giving to Dose of IV Diuretics Which Diabetes Quite but at the Time. Chest X-Ray Showed Sign and Symptom of Congestive Heart Failure Also Chest X-Ray Showed? Off Infiltrate in the Base Which Has Not Been Clear Well from Her Last Hospitalization. Patient Be Started on IV Antibiotics besides Steroid and BiPAP We'll Consult Cardiology and Pulmonary. Her Troponin Was Mildly Elevated Patient Will Be Diagnosed with Non-ST HI till Proven Otherwise. Surprisingly her kidney function is much better than last time with creatinine 1.7 and GFR is running at 37. BNP was very high at 13 900 patient will be continue on have eaten diuretics IV. 01/25: Repeat chest x-ray reveals improving right lower lobe infiltrate. Consolidation remains present. [place] for pneumonia. Moderate left pleural effusion. Cardiomegaly. Patient has been rechecked by cardiology and IV Lasix decreased as well as hydralazine was increased. Pulmonary medicine is following, no plans for thoracentesis. Patient is seen today on the cardiac stepdown unit. She is resting in bed and appears to be comfortable. Patient is afebrile, heart rate in the 60s and 70s, blood pressure 168/82, pulse ox 90% on 4 L nasal cannula. Blood blood glucose this morning was 44 01/26: She states that she is not feeling well today. Areas she is complaining of abdominal bloating and gas and difficulty eating. She's been instructed to avoid pop. CAT scan of the abdomen and pelvis without contrast has been ordered for today. Patient has been afebrile, heart rate 63, blood pressure 108/52, pulse ox 98% on 4 L nasal cannula. WBC 3.1, hemoglobin 9, platelet count 383. Sodium 138, potassium 4.8, chloride 94, CO2 39, BUN 41 creatinine 1.86. Liver function tests are normal. Blood sugars this morning in the 60s followed by 84. Weight is down 2 kg. 01/27: CAT scan of the abdomen and pelvis revealed severe anasarca and body wall edema persists. Cardiomegaly with moderate right pleural effusion and small left effusions. Trace perihepatic ascites. Findings suggest third spacing and fluid overload state. Prominent patchy consolidation and atelectasis in the lower lungs. Correlate to exclude underlying pneumonia. Moderate stool burden. Left-sided colonic diverticulosis without acute diverticulitis. Circumferential bladder wall thickening. Correlate to exclude cystitis. Patient is complaining of constipation. MiraLAX 1 dose and Senokot scheduled added. Patient instructed to increase protein intake, Ensure added. Urinalysis ordered. Cardiology is concern for cardiac amyloidosis. Patient will be continued on IV Lasix. 01/28: Patient has no significant cough today, however she remains in bed, in no shortness of breath, however does not ambulate as much, patient has no nausea no vomiting, ultrasound of the chest was performed, showing a pocket of 8 cm left side, and 12 cm right side, pleural effusion. Pulmonary still has to make recommendations for thoracentesis, as per the recommendation today, no thoracentesis planned, patient is not on any antibiotic, she had Pseudomonas during the last admission without any current evidence of pneumonia, to check for pro-calcitonin, serum immunofixation, and protein electrophoresis IZZY to be requested patient is on Eliquis this need to be held should the decision be made for thoracentesis, pulse ox at 93% 3 L T-max 98 point Objective - Vital Signs Vital signs: Vital Signs Temp 97.8 F 01/28/21 05:03 Pulse 71 01/28/21 16:00 Resp 16 01/28/21 16:00 BP 129/66 01/28/21 16:00 Pulse Ox 98 01/28/21 00:00 Intake & Output 01/27/21 01/28/21 01/28/21 18:59 06:59 18:59 Intake Total 486 600 Output Total 550 600 1 Balance -64 -600 599 Weight 85.2 kg Intake: Oral 486 600 Output: Urine 550 600 Uretheral (Hyatt) 300 Urine/Stool Mix 1 Other: # Voids 1 # Bowel Movements 1 - Labs CBC & Chem 7: 01/28/21 07:22 01/28/21 07:22 Labs: Abnormal Lab Results - Last 24 Hours (Table) 01/27/21 01/27/21 01/28/21 Range/Units 18:56 20:53 06:08 WBC (3.8-10.6) k/uL RBC (3.80-5.40) m/uL Hgb (11.4-16.0) gm/dL Hct (34.0-46.0) % MCHC (31.0-37.0) g/dL RDW (11.5-15.5) % Chloride (98-107) mmol/L Carbon Dioxide (22-30) mmol/L BUN (7-17) mg/dL Creatinine (0.52-1.04) mg/dL POC Glucose (mg/dL) 194 H 115 H (75-99) mg/dL Urine Protein 1+ H (Negative) Urine Mucus Rare H (None) /hpf 01/28/21 01/28/21 01/28/21 Range/Units 07:22 07:22 11:26 WBC 3.4 L (3.8-10.6) k/uL RBC 3.62 L (3.80-5.40) m/uL Hgb 9.2 L (11.4-16.0) gm/dL Hct 31.4 L (34.0-46.0) % MCHC 29.4 L (31.0-37.0) g/dL RDW 18.7 H (11.5-15.5) % Chloride 89 L (98-107) mmol/L Carbon Dioxide 42 H* (22-30) mmol/L BUN 51 H (7-17) mg/dL Creatinine 2.12 H (0.52-1.04) mg/dL POC Glucose (mg/dL) 127 H (75-99) mg/dL Urine Protein (Negative) Urine Mucus (None) /hpf 01/28/21 Range/Units 16:30 WBC (3.8-10.6) k/uL RBC (3.80-5.40) m/uL Hgb (11.4-16.0) gm/dL Hct (34.0-46.0) % MCHC (31.0-37.0) g/dL RDW (11.5-15.5) % Chloride (98-107) mmol/L Carbon Dioxide (22-30) mmol/L BUN (7-17) mg/dL Creatinine (0.52-1.04) mg/dL POC Glucose (mg/dL) 131 H (75-99) mg/dL Urine Protein (Negative) Urine Mucus (None) /hpf Assessment and Plan Plan: ASSESSMENT AND PLAN 1. Acute on chronic respiratory failure secondary to acute diastolic heart failure pleural effusion. No plan for thoracentesis per pulmonary patient is on 3 L O2 nasal cannula, and is on eliquis, 2. Acute on chronic diastolic heart failure area and continue IV Lasix, monitor intake and output cardiology consultation appreciated. 3. Acute kidney injury. 4. Troponin elevation likely due to acute on chronic kidney failure. Cardiology consult appreciated. 5. COPD without exacerbation. albuterol/ipratropium nebulizer. 6. A. fib with RVR, paroxysmal atrial fibrillation. Continue metoprolol and amiodarone will continue Eliquis as well. 7. Hypertension. Continue Lopressor 50 mg 3 times daily, hydralazine 50 mg 3 times daily. 8. Diabetes mellitus type 2 uncontrolled with hypoglycemia. Continue NovoLog scale before meals and at bedtime. Hold Actos 30 mg daily. 9. Diabetic neuropathy. 10. Recurrent depression. 11. HYperlipidemia: Continue patient on Lipitor 40 mg a day. 12. Chronic pain syndrome: Has been on hydrocodone continue medication. 13. Possible cardiac amyloidosis. Cardiology is following and may consider rig ht-sided heart catheterization. Check for serum protein electrophoresis, and immunofixation 14. DVT prophylaxis: Patient remain on Eliquis. 15. GI prophylaxis: Patient be on Pepcid 20 mg daily. CODE STATUS: Full code DISCHARGE PLAN Home with [facility].
[2021-01-28 20:10] LABS: Glucose,Whole Blood 144 mg/dL (75-99)
[2021-01-28] MEDS: INSULIN DETEMIR (LEVEMIR) 100 UNIT/ML SYR SQ SCH (21:03)
[2021-01-28] MEDS: MONTELUKAST 10 MG TAB PO SCH (21:03)
[2021-01-29 04:59] LABS: Protein, Total 6.1 g/dL (6.2-8.2)
[2021-01-29 05:30] LABS: Procalcitonin 0.22 ng/mL (0.02-0.09)
[2021-01-29 06:01] LABS: Glucose,Whole Blood 98 mg/dL (75-99)
[2021-01-29] MEDS: INSULIN ASPART (NovoLOG) 100 UNIT/ML VIAL SQ SCH ×4 (06:27→20:48)
[2021-01-29] MEDS: PANTOPRAZOLE 40 MG TABLET PO SCH (06:32)
[2021-01-29] MEDS: IPRATROPIUM-ALBUTEROL 3 ML NEB INHALATION SCH ×4 (07:33→19:51)
[2021-01-29] MEDS: hydrALAZINE HCL 50 MG TAB PO SCH ×3 (08:25→20:44)
[2021-01-29] MEDS: METOPROLOL TARTRATE 50 MG TAB PO SCH ×3 (08:25→20:44)
[2021-01-29] MEDS: AMIODARONE 200 MG TAB PO SCH (08:25)
[2021-01-29] MEDS: NORTRIPTYLINE 25 MG CAP PO SCH (08:25)
[2021-01-29] MEDS: APIXABAN 5 MG TAB PO SCH ×2 (08:25→20:44)
[2021-01-29] MEDS: SENNOSIDES-DOCUSATE SODIUM 1 EACH TAB PO SCH ×2 (08:25→20:43)
[2021-01-29] MEDS: NICOTINE 14MG/24HR PATCH TRANSDERM SCH (08:25)
[2021-01-29] MEDS: FUROSEMIDE 10 MG/ML 4 ML VIAL IV SCH (08:25)
[2021-01-29] MEDS: ATORVASTATIN 40 MG TAB PO SCH (08:25)
[2021-01-29] MEDS: POTASSIUM CHLORIDE ER 10 MEQ TAB.ER.PRT PO SCH ×2 (08:25→20:44)
[2021-01-29] MEDS: LORATADINE 10 MG TAB PO SCH (08:26)
[2021-01-29 09:34] LABS: Potassium 4.8 mmol/L (3.5-5.1)
--- NOTE | 2021-01-29 09:36 | P.PN ---
Subjective 60-year-old female who was admitted to the emergency department with complaints of progressively worsening shortness of breath over the last few days which suddenly became worse this morning. She has a history of hypertension, hyperlipidemia and diabetes. History of a cardiac catheterization in 2016 with no evidence of obstructive CAD at that time. She'll history of chronic tobacco use and has very recently stopped smoking. She's had recent multiple admissions to the hospital. She was admitted to [facility] and underwent t horacentesis and cardioversion. She was subsequently readmitted here last month with tachycardia and shortness of breath was noted to be in atrial fibrillation with rapid ventricular response. She was initiated on amiodarone at that time. She also underwent thoracentesis during her previous admission. She and echocardiogram done in October of this year and at that time her ejection fraction was 55-60% with severe pulmonary hypertension measuring 69 mmHg. Over the last few days she's been more short of breath with some tightness in her chest and pressure as well as some abdominal bloating. She denies any clear complaints of orthopnea but does wake up feeling short of breath through the night. Laboratory values on admission showed hemoglobin 9.4, BUN 33, creatinine 1.7, troponin 0.043 and NT proBNP of 13,900 which was previously over 30,000. EKG on admission showed sinus rhythm with prolonged QT interval. Chest x-ray impression interval marked progression of diffuse bilateral pleural parenchymal changes correlate for CHF with pulmonary edema versus diffuse pneumonia of her review of the films this patient has left-sided pleural effusion. She has been initiated on IV Lasix and BiPAP. Upon examination patient appears comfortable. She is able to speak in full sentences but does have some mild dyspnea with talking. She has very trace edema and doesn't feel that that is worse than usual. Denies any chest pain but does feel some pressure in her chest with breathing. Denies any dizziness or lightheadedness. Denies any palpitations or feeling her heart racing. Echocardiogram on 10/2020 revealed EF 55-60%, severe concentric left ventricular hypertrophy, paradoxical motion of the right ventricular septum consistent with right ventricular overload and/or elevated right ventricular end diastolic pressure moderate tricuspid regurgitation, severe pulmonary hypertension with RVSP 69mmHg. 01/29/2021 Pt seen and examined resting comfortably in bed in no acute distress. Vital signs stable. No plans for thoracentesis at this time per Dr. Aguilar. Daily labs pending. She states she was able to lay flat and sleep last night but did feel a pressure in the right anterior chest wall that hurt when she was breathing. GENERAL: Well-appearing, well-nourished and in no acute distress. NECK: Supple with bilateral JVD. LUNGS: Course bibasilar rales, no wheezes or rhonchi. Respirations equal and unlabored. HEART: Regular rate and rhythm, systolic murmur noted. S1 and S2 heard. EXTREMITIES: Normal range of motion, trace bilateral lower extremity pitting edema. No clubbing or cyanosis. Peripheral pulses intact. ASSESSMENT Atrial tachycardia, currently maintaining sinus mechanism Acute on chronic diastolic heart failure Hypertension Diabetes mellitus Dyslipidemia Proximal atrial fibrillation on long-term anticoagulation Chronic kidney disease Severe concentric left ventricular hypertrophy, Concern of possible amyloidosis with low voltage on EKG and significant LVH on echo s/p right sided thoracentesis 01/07 with 900mL removed s/p left sided thoracentesis 01/08 with 650mL removed Pulmonary hypertension likely from left-sided heart failure PLAN Transition to bumex 2 mg in the AM and 1 mg at 1500. Follow renal function and electrolytes in the morning. Encourage incentive spirometer use. Further recommendations to follow based on clinical course. Nurse Practitioner note has been reviewed, I agree with a documented findings and plan of care. Patient was seen and examined. Objective - Vital Signs Vital signs: Vital Signs Temp 98.1 F 01/29/21 04:55 Pulse 76 01/29/21 04:55 Resp 16 01/29/21 04:55 BP 130/70 01/29/21 04:55 Pulse Ox 93 L 01/29/21 04:55 Intake & Output 01/28/21 01/29/21 01/29/21 18:59 06:59 18:59 Intake Total 720 120 Output Total 1 800 Balance 719 -800 120 Weight 85.5 kg Intake: Oral 720 120 Output: Urine 800 Urine/Stool Mix 1 Other: # Voids 1 # Bowel Movements 1 - Labs CBC & Chem 7: 01/28/21 07:22 01/28/21 07:22 Labs: Abnormal Lab Results - Last 24 Hours (Table) 01/28/21 01/28/21 01/28/21 Range/Units 07:22 11:26 16:30 POC Glucose (mg/dL) 127 H 131 H (75-99) mg/dL Total Protein (PEP) 6.1 L (6.2-8.2) g/dL Procalcitonin 0.22 H (0.02-0.09) ng/mL 01/28/21 Range/Units 20:08 POC Glucose (mg/dL) 144 H (75-99) mg/dL Total Protein (PEP) (6.2-8.2) g/dL Procalcitonin (0.02-0.09) ng/mL
[2021-01-29 11:24] LABS: Glucose,Whole Blood 115 mg/dL (75-99)
--- NOTE | 2021-01-29 11:54 | P.PN ---
Subjective Progress Note Date: 01/29/21 Principal diagnosis: Acute exacerbation of CHF 60-year-old black female with history of COPD, CHF, chronic atrial fibrillation, pleural effusion, diabetes, as well as gastroesophageal reflux disease, hypertension, hyperlipidemia, and osteoarthritis, who presents to the emergency department on January 24, with complaints of increasing shortness of breath. In addition, she complains of lower extremity edema, and increasing abdominal girth. The patient was seen by me in consultation in the ER on January 04. At that time, she came in with similar complaints of shortness of breath. She was much more short of breath at that time, and required BiPAP therapy. Prior to that, she was a [facility], for 5 days, at which time, she had a left- sided thoracentesis with 800 mL removed, and also that time had a cardioversion for atrial fibrillation. During her last admission here, after I saw her in consultation, my partner, did a left-sided thoracentesis and 650 mL was removed. Currently, she is resting comfortably in the room. She is on 6 L nasal cannula. She's not receiving any IV fluids. The patient is getting Lasix 40 mg IV push every 8 hours. White count 5.3, he will 9.4, hematocrit 32.7, and platelet count 3 80,000. PT 12.8 INR 1.2 and PTT 27.2. Sodium potassium chloride normal CO2 36 anion gap 7 BUN 33, and creatinine 1.70. Troponin was 0.043 and the N-terminal proBNP was 13,900. Chest x-ray showed a pattern of diffuse pulmonary edema. She likely has bilateral effusions, left greater than right. The patient is seen today 01/25/2021 in follow-up on the selective care unit. She is currently resting quite comfortably in bed. Awake and alert in no acute distress. Maintaining good O2 saturations in the upper 90s on 4 L/m per nasal cannula. Afebrile. Chest x-ray reveals improving right lower lobe infiltrate. Moderate left-sided pleural effusion stable. Cardiomegaly. Remains on IV diuretics. Kaylin on bronchodilators. She is anticoagulated with Eliquis. Antibiotics in the form of Cipro. NicoDerm patches in place. The patient is seen today 01/26/2021 in follow-up on the selective care unit. She is awake and alert in no acute distress. Currently resting comfortably in bed. Still having some ongoing issues with abdominal discomfort. No worsening shortness of breath, cough or congestion. 18 in good O2 saturations in the mid to upper 90s on 4 L/m per nasal cannula. She's afebrile. White count 3.1. Hemoglobin 9.0. Sodium 1:30. Potassium 4.8. Creatinine 1.86. Computed tomography scan of the abdomen and pelvis reveals severe anasarca and body wall edema. Cardiomegaly with moderate right pleural effusion and small left effusions. Trace. Hepatic ascites. Findings suggest third spacing of fluid volume overload state/CHF. Atelectasis of the lower lungs. Colonic diverticulosis without acute diverticulitis. She remains on bronchodilators, IV diuretics, anticoagulated with Eliquis. NicoDerm patch in place. On 01/27/2021 patient seen in follow-up on selective care unit, she is awake and alert, she was on 5 L of oxygen this morning with a pulse ox of 95% which had since been turned down to 3 L. She states her breathing continues to improve, she is on Lasix 40 mg IV push every 12 hours in addition to Zaroxolyn, she is in -1.2 L over the last 24 hours. Breathing comfortably. Denies any chest pain. No fever or chills, no cough, no phlegm production. Wore the BiPAP support very briefly last evening, otherwise has been off BiPAP support and on a few liters of supplemental oxygen overnight. Today's chest x-ray shows low lung volumes, and bibasilar opacities, was subsegmental atelectasis in the right lower lobe, and small to moderate-sized left pleural effusion without significant change co mpared to previous exam. No new labs today. She remains on her home dose Eliquis. She is on breathing treatments. Her abdominal distention and bilateral lower extremity edema has significantly improved. On 01/28/2021 patient seen in follow-up on selective care unit. She is awake and alert in no acute distress, she remains on Lasix 40 mg every 12 hours, and Zaroxolyn, and she is maintaining a negative fluid balance, she is in -664 not fluid balance over the last 24 hours. No edema in lower extremities, abdominal distention and anasarca have significantly improved, she is breathing much more comfortably, she has gotten up out of bed and set up in the chair, but still spends quite a bit of time in bed. No complaints of chest pain, lung sounds reveal fine bibasilar crackles. His labs have been reviewed, with little confused 3.4, hemoglobin is 9.2, potassium is 4.4, chloride 89, CO2 is 42, BUN is 51, creatinine is 2.12. Patient remains in sinus mechanism, she is on oral anticoagulation the form of Eliquis, she remains on nebulized bronchodilators. Kaylin on oral amiodarone 200 mg once daily for rate control, she is on metoprolol 50 mg 3 times a day. Is being followed by cardiology. On 01/29/2021 patient seen in follow-up on selective care unit, she sits up in the recliner, in no acute distress, she maintains a negative fluid balance, -800 that fluid balance over the last 24 hours, she has been switched over to oral Bumex 2 mg in the morning and 1 mg in the afternoon in addition to Zaroxolyn 2.5 mg daily. Cardiology is following and managing her diuretics. She also remains on intake limitation in the form of Eliquis, she is on oral amiodarone. She is breathing comfortably, she states she is feeling better, although she did have an episode of shortness of breath earlier today. She had an ultrasound of the chest completed, and markings were done on the right lung. She is currently on 3 L of oxygen a pulse ox of 97%, lung sounds reveal diminished breath sounds and crackles over bilateral bases. Objective - Vital Signs Vital signs: Vital Signs Temp 98.1 F 01/29/21 04:55 Pulse 76 01/29/21 08:00 Resp 16 01/29/21 08:00 BP 121/68 01/29/21 08:00 Pulse Ox 97 01/29/21 08:00 Intake & Output 01/28/21 01/29/21 01/29/21 18:59 06:59 18:59 Intake Total 720 120 Output Total 1 800 Balance 719 -800 120 Weight 85.5 kg Intake: Oral 720 120 Output: Urine 800 Urine/Stool Mix 1 Other: # Voids 1 # Bowel Movements 1 - Exam GENERAL EXAM: Alert, very pleasant, 60-year-old -Japanese female, on 3 L of oxygen resting in bed, comfortable in no apparent distress. HEAD: Normocephalic/atraumatic. EYES: Normal reaction of pupils, equal size. Conjunctiva pink, sclera white. NOSE: Clear with pink turbinates. THROAT: No erythema or exudates. NECK: No masses, no JVD, no thyroid enlargement, no adenopathy. CHEST: No chest wall deformity. Symmetrical expansion. LUNGS: Equal air entry with bibasilar crackles, diminished breath sounds at the bases CVS: Regular rate and rhythm, normal S1 and S2, no gallops, no murmurs, no rubs ABDOMEN: Soft, nontender. No hepatosplenomegaly, normal bowel sounds, no guarding or rigidity. EXTREMITIES: No clubbing, no edema, no cyanosis, 2+ pulses and upper and lower extremities. MUSCULOSKELETAL: Muscle strength and tone normal. SPINE: No scoliosis or deformity SKIN: No rashes CENTRAL NERVOUS SYSTEM: Alert and oriented -3. No focal deficits, tone is normal in all 4 extremities. PSYCHIATRIC: Alert and oriented -3. Appropriate affect. Intact judgment and insight. - Labs CBC & Chem 7: 01/28/21 07:22 01/29/21 08:14 Labs: Abnormal Lab Results - Last 24 Hours (Table) 01/28/21 01/28/21 01/28/21 Range/Units 07:22 16:30 20:08 Chloride (98-107) mmol/L Carbon Dioxide (22-30) mmol/L BUN (7-17) mg/dL Creatinine (0.52-1.04) mg/dL Glucose (74-99) mg/dL POC Glucose (mg/dL) 131 H 144 H (75-99) mg/dL Total Protein (PEP) 6.1 L (6.2-8.2) g/dL Procalcitonin 0.22 H (0.02-0.09) ng/mL 01/29/21 01/29/21 Range/Units 08:14 11:23 Chloride 90 L (98-107) mmol/L Carbon Dioxide 41 H* (22-30) mmol/L BUN 48 H (7-17) mg/dL Creatinine 2.22 H (0.52-1.04) mg/dL Glucose 119 H (74-99) mg/dL POC Glucose (mg/dL) 115 H (75-99) mg/dL Total Protein (PEP) (6.2-8.2) g/dL Procalcitonin (0.02-0.09) ng/mL Assessment and Plan Plan: Assessment: #1. Acute hypoxic respiratory failure related to acute exacerbation of diastolic CHF, severe anasarca, and recurrent pleural effusions #2. Recent hospitalization at [facility] from 01/04/2021 through 01/10/2021 for acute exacerbation of CHF with diastolic dysfunction #3. Recent admission to [facility] in early December for cardioversion, and a left-sided thoracentesis #4. Chronic atrial fibrillation on Eliquis #5. COPD, on home oxygen at 3 L #6. Hypertension #7. Hyperlipidemia #8. Bilateral pleural effusions, with previous history of thoracentesis on the left at the [facility] in December 2020 and right-sided thoracentesis on 01/07/2021 with removal of 900 mL of fluid and left-sided thoracentesis on 01/08/2021 with removal of 650 mL of fluid by Dr. Aguilar. Right-sided thoracentesis pleural fluid was transudate, however the pleural fluid cultures are positive for pseudomonas without clear evidence of infection, and patient has completed a course of ciprofloxacin #9. Diabetes mellitus type 2 with diabetic neuropathy and diabetic retinopathy #10. Depression #11. Chronic diastolic CHF with severe concentric LVH, pulmonary hypertension #12. History of sleep apnea syndrome #13. Chronic kidney disease stage III Plan: Continue diuretics per cardiology recommendations Ultrasound the chest has been reviewed Today's labs have been noted We'll consider doing right thoracentesis later this afternoon This was discussed with the patient Who was agreeable to proceed I performed a history & physical examination of the patient and discussed their management with my nurse practitioner, Argelia Alvarado. I reviewed the nurse practitioner's note and agree with the documented findings and plan of care. Lung sounds are positive for diminished breath sounds throughout the lung valdez. The findings and the impression was discussed with the patient. I attest to the documentation by the nurse practitioner. Time with Patient: Less than 30
--- NOTE | 2021-01-29 15:26 | P.PN ---
Subjective Progress Note Date: 01/29/21 HISTORY OF PRESENT ILLNESS This is a 60-year-old female patient at [facility] with past medical history significant for COPD, diabetes mellitus type 2, gastroesophageal reflux disease, hypertension, hyperlipidemia, generalized osteoarthritis, remote history of tobacco use and dependence. Patient was hospitalized recently at [facility] for respiratory failure found to have left-sided pleural effusion thoracentesis of 800 mL was done also patient ended up going for cardioversion for chronic A. fib she was sent home after been in for 5 days. Patient was rehospitalized at [facility] between 723 to 01/10/2021 for A. fib with RVR, respiratory failure with non-STEMI and CHF exacerbation. Patient was seen cardiology and pulmonary done well she was kept on BiPAP for a good part of her hospitalization at the time. Patient was kept on heavy doses o f IV diuretics. On 01/08: Patient had thoracentesis of the left side for 650 mL was mostly transudate cytology was negative for CVA. With her symptoms been well controlled time patient was sent home on Bumex 2 mg daily along with ciprofloxacin 500 mg twice a day for 7 days was to be kept on Eliquis along with metoprolol titrate 50 mg 3 times a day which kept her pulse rate well controlled. Patient presented to [facility] today 01/24 2021 with severe dyspnea and shortness of breath has been progressively getting worse for the last 3 days she was quite hypoxic when italian tutor was at the scene. Patient ended up coming to the emergency department require to go on BiPAP for the whole time after 2 or 3 round of respiratory treatment along with titrating her O2 on BiPAP Patient Started Getting Slightly Better. Patient Was Giving to Dose of IV Diuretics Which Diabetes Quite but at the Time. Chest X-Ray Showed Sign and Symptom of Congestive Heart Failure Also Chest X-Ray Showed? Off Infiltrate in the Base Which Has Not Been Clear Well from Her Last Hospitalization. Patient Be Started on IV Antibiotics besides Steroid and BiPAP We'll Consult Cardiology and Pulmonary. Her Troponin Was Mildly Elevated Patient Will Be Diagnosed with Non-ST TN till Proven Otherwise. Surprisingly her kidney function is much better than last time with creatinine 1.7 and GFR is running at 37. BNP was very high at 13 900 patient will be continue on have eaten diuretics IV. 01/25: Repeat chest x-ray reveals improving right lower lobe infiltrate. Consolidation remains present. [place] for pneumonia. Moderate left pleural effusion. Cardiomegaly. Patient has been rechecked by cardiology and IV Lasix decreased as well as hydralazine was increased. Pulmonary medicine is following, no plans for thoracentesis. Patient is seen today on the cardiac stepdown unit. She is resting in bed and appears to be comfortable. Patient is afebrile, heart rate in the 60s and 70s, blood pressure 168/82, pulse ox 90% on 4 L nasal cannula. Blood blood glucose this morning was 44 01/26: She states that she is not feeling well today. Areas she is complaining of abdominal bloating and gas and difficulty eating. She's been instructed to avoid pop. CAT scan of the abdomen and pelvis without contrast has been ordered for today. Patient has been afebrile, heart rate 63, blood pressure 108/52, pulse ox 98% on 4 L nasal cannula. WBC 3.1, hemoglobin 9, platelet count 383. Sodium 138, potassium 4.8, chloride 94, CO2 39, BUN 41 creatinine 1.86. Liver function tests are normal. Blood sugars this morning in the 60s followed by 84. Weight is down 2 kg. 01/27: CAT scan of the abdomen and pelvis revealed severe anasarca and body wall edema persists. Cardiomegaly with moderate right pleural effusion and small left effusions. Trace perihepatic ascites. Findings suggest third spacing and fluid overload state. Prominent patchy consolidation and atelectasis in the lower lungs. Correlate to exclude underlying pneumonia. Moderate stool burden. Left-sided colonic diverticulosis without acute diverticulitis. Circumferential bladder wall thickening. Correlate to exclude cystitis. Patient is complaining of constipation. MiraLAX 1 dose and Senokot scheduled added. Patient instructed to increase protein intake, Ensure added. Urinalysis ordered. Cardiology is concern for cardiac amyloidosis. Patient will be continued on IV Lasix. 01/28: Patient has no significant cough today, however she remains in bed, in no shortness of breath, however does not ambulate as much, patient has no nausea no vomiting, ultrasound of the chest was performed, showing a pocket of 8 cm left side, and 12 cm right side, pleural effusion. Pulmonary still has to make recommendations for thoracentesis, as per the recommendation today, no thoracentesis planned, patient is not on any antibiotic, she had Pseudomonas during the last admission without any current evidence of pneumonia, to check for pro-calcitonin, serum immunofixation, and protein electrophoresis IZZY to be requested patient is on Eliquis this need to be held should the decision be made for thoracentesis, pulse ox at 93% 3 L T-max 98 point 01/29: Patient is scheduled for thoracentesis today, right side, she does have shortness of breath and pain with inspiration right side, there is a 1.2 pocket noted on the side by ultrasound, pro-calcitonin is higher and is normal at 0.22, currently not on any antibiotics yet, she is on Bumex 2 mg morning and 1 mg the afternoon, and lost along with Zaroxolyn 2.5 mg every Thursday. Pleural effusion will be sent for culture as well, she did have Pseudomonas in the past, these would be decided based from current examination for an exudate, pulmonary is following closely Objective - Vital Signs Vital signs: Vital Signs Temp 98.1 F 01/29/21 04:55 Pulse 69 01/29/21 13:19 Resp 16 01/29/21 13:19 BP 150/81 01/29/21 12:00 Pulse Ox 95 01/29/21 12:00 Intake & Output 01/28/21 01/29/21 01/29/21 18:59 06:59 18:59 Intake Total 720 240 Output Total 1 800 Balance 719 -800 240 Weight 85.5 kg Intake: Oral 720 240 Output: Urine 800 Urine/Stool Mix 1 Other: # Voids 1 # Bowel Movements 1 - Constitutional General appearance: Present: cooperative, no acute distress - EENT Eyes: Present: EOMI, PERRLA, dentition normal ENT: Present: NA/AT, normal oropharynx - Neck Neck: Present: normal ROM - Respiratory Respiratory: bilateral: CTA, diminished - Cardiovascular Rhythm: regular Heart sounds: normal: S1, S2 Abnormal Heart Sounds: Present: systolic murmur - Gastrointestinal General gastrointestinal: Present: normal bowel sounds, soft - Integumentary Integumentary: Present: decreased turgor, normal - Neurologic Neurologic: Present: CNII-XII intact - Musculoskeletal Musculoskeletal: Present: strength equal bilaterally - Psychiatric Psychiatric: Present: A&O x's 3, appropriate affect, intact judgment & insight - Labs CBC & Chem 7: 01/28/21 07:22 01/29/21 08:14 Labs: Abnormal Lab Results - Last 24 Hours (Table) 01/28/21 01/28/21 01/28/21 Range/Units 07:22 16:30 20:08 Chloride (98-107) mmol/L Carbon Dioxide (22-30) mmol/L BUN (7-17) mg/dL Creatinine (0.52-1.04) mg/dL Glucose (74-99) mg/dL POC Glucose (mg/dL) 131 H 144 H (75-99) mg/dL Total Protein (PEP) 6.1 L (6.2-8.2) g/dL Procalcitonin 0.22 H (0.02-0.09) ng/mL 01/29/21 01/29/21 Range/Units 08:14 11:23 Chloride 90 L (98-107) mmol/L Carbon Dioxide 41 H* (22-30) mmol/L BUN 48 H (7-17) mg/dL Creatinine 2.22 H (0.52-1.04) mg/dL Glucose 119 H (74-99) mg/dL POC Glucose (mg/dL) 115 H (75-99) mg/dL Total Protein (PEP) (6.2-8.2) g/dL Procalcitonin (0.02-0.09) ng/mL Assessment and Plan Plan: ASSESSMENT AND PLAN 1. Acute on chronic respiratory failure secondary to acute diastolic heart failure pleural effusion. plan for thoracentesis on 01/29 2021 per pulmonary patient is on 3 L O2 nasal cannula, and is on eliquis, 2. Acute on chronic diastolic heart failure area and continue IV Lasix, monitor intake and output cardiology consultation appreciated. 3. Acute kidney injury. 4. Troponin elevation likely due to acute on chronic kidney failure. Cardiology consult appreciated. 5. COPD without exacerbation. albuterol/ipratropium nebulizer. 6. A. fib with RVR, paroxysmal atrial fibrillation. Continue metoprolol and amiodarone will continue Eliquis as well. 7. Hypertension. Continue Lopressor 50 mg 3 times daily, hydralazine 50 mg 3 times daily. 8. Diabetes mellitus type 2 uncontrolled with hypoglycemia. Continue NovoLog scale before meals and at bedtime. Hold Actos 30 mg daily. 9. Diabetic neuropathy. 10. Recurrent depression. 11. HYperlipidemia: Continue patient on Lipitor 40 mg a day. 12. Chronic pain syndrome: Has been on hydrocodone continue medication. 13. Possible cardiac amyloidosis. Cardiology is following and may consider right-sided heart catheterization. Check for serum protein electrophoresis, and immunofixation 14. DVT prophylaxis: Patient remain on Eliquis. 15. GI prophylaxis: Patient be on Pepcid 20 mg daily. CODE STATUS: Full code DISCHARGE PLAN Home with [facility].
[2021-01-29 16:59] LABS: Glucose,Whole Blood 146 mg/dL (75-99)
[2021-01-29 20:26] LABS: Glucose,Whole Blood 153 mg/dL (75-99)
[2021-01-29] MEDS: HYDROcodone/APAP 10-325MG 1 EACH TAB PO PRN (20:43)
[2021-01-29] MEDS: MONTELUKAST 10 MG TAB PO SCH (20:44)
[2021-01-29] MEDS: INSULIN DETEMIR (LEVEMIR) 100 UNIT/ML SYR SQ SCH (20:46)
[2021-01-30 01:50] VITALS: TEMP 98.1
[2021-01-30 06:18] LABS: Glucose,Whole Blood 85 mg/dL (75-99)
[2021-01-30] MEDS: INSULIN ASPART (NovoLOG) 100 UNIT/ML VIAL SQ SCH ×2 (06:47→13:10)
[2021-01-30] MEDS: PANTOPRAZOLE 40 MG TABLET PO SCH (06:48)
[2021-01-30] MEDS: IPRATROPIUM-ALBUTEROL 3 ML NEB INHALATION SCH ×4 (08:14→20:40)
[2021-01-30] MEDS ORDERED: BUMETANIDE 1 MG TAB PO SCH ×2 (09:00→15:00)
[2021-01-30] MEDS: APIXABAN 5 MG TAB PO SCH ×2 (10:16→10:26)
[2021-01-30] MEDS: LORATADINE 10 MG TAB PO SCH (10:16)
[2021-01-30] MEDS: hydrALAZINE HCL 50 MG TAB PO SCH (10:16)
[2021-01-30] MEDS: AMIODARONE 200 MG TAB PO SCH (10:16)
[2021-01-30] MEDS: METOPROLOL TARTRATE 50 MG TAB PO SCH (10:16)
[2021-01-30] MEDS: POTASSIUM CHLORIDE ER 10 MEQ TAB.ER.PRT PO SCH (10:16)
[2021-01-30] MEDS: ATORVASTATIN 40 MG TAB PO SCH (10:16)
[2021-01-30] MEDS: SENNOSIDES-DOCUSATE SODIUM 1 EACH TAB PO SCH (10:16)
[2021-01-30] MEDS: NICOTINE 14MG/24HR PATCH TRANSDERM SCH (10:17)
[2021-01-30] MEDS: NORTRIPTYLINE 25 MG CAP PO SCH (10:17)
--- NOTE | 2021-01-30 11:49 | P.PN ---
Subjective Progress Note Date: 01/30/21 60-year-old black female with history of COPD, CHF, chronic atrial fibrillation, pleural effusion, diabetes, as well as gastroesophageal reflux disease, hypertension, hyperlipidemia, and osteoarthritis, who presents to the emergency department on January 24, with complaints of increasing shortness of breath. In addition, she complains of lower extremity edema, and increasing abdominal girth. The patient was seen by me in consultation in the ER on January 04. At that time, she came in with similar complaints of shortness of breath. She was much more short of breath at that time, and required BiPAP therapy. Prior to that, she was a [facility], for 5 days, at which time, she had a left-sided thoracentesis with 800 mL removed, and also that time had a cardioversion for atrial fibrillation. During her last admission here, after I saw her in consultation, my partner, did a left-sided thoracentesis and 650 mL was removed. Currently, she is resting comfortably in the room. She is on 6 L nasal cannula. She's not receiving any IV fluids. The patient is getting Lasix 40 mg IV push every 8 hours. White count 5.3, he will 9.4, hematocrit 32.7, and platelet count 3 80,000. PT 12.8 INR 1.2 and PTT 27.2. Sodium potassium chloride normal CO2 36 anion gap 7 BUN 33, and creatinine 1.70. Troponin was 0.043 and the N-terminal proBNP was 13,900. Chest x-ray showed a pattern of diffuse pulmonary edema. She likely has bilateral effusions, left greater than right. The patient is seen today 01/25/2021 in follow-up on the selective care unit. She is currently resting quite comfortably in bed. Awake and alert in no acute distress. Maintaining good O2 saturations in the upper 90s on 4 L/m per nasal cannula. Afebrile. Chest x-ray reveals improving right lower lobe infiltrate. Moderate left-sided pleural effusion stable. Cardiomegaly. Remains on IV diuretics. Kaylin on bronchodilators. She is anticoagulated with Eliquis. Antibiotics in the form of Cipro. NicoDerm patches in place. The patient is seen today 01/26/2021 in follow-up on the selective care unit. She is awake and alert in no acute distress. Currently resting comfortably in bed. Still having some ongoing issues with abdominal discomfort. No worsening shortness of breath, cough or congestion. 18 in good O2 saturations in the mid to upper 90s on 4 L/m per nasal cannula. She's afebrile. White count 3.1. Hemoglobin 9.0. Sodium 1:30. Potassium 4.8. Creatinine 1.86. Computed tomography scan of the abdomen and pelvis reveals severe anasarca and body wall edema. Cardiomegaly with moderate right pleural effusion and small left effusions. Trace. Hepatic ascites. Findings suggest third spacing of fluid volume overload state/CHF. Atelectasis of the lower lungs. Colonic diverticulosis without acute diverticulitis. She remains on bronchodilators, IV diuretics, anticoagulated with Eliquis. NicoDerm patch in place. On 01/27/2021 patient seen in follow-up on selective care unit, she is awake and alert, she was on 5 L of oxygen this morning with a pulse ox of 95% which had since been turned down to 3 L. She states her breathing continues to improve, she is on Lasix 40 mg IV push every 12 hours in addition to Zaroxolyn, she is in -1.2 L over the last 24 hours. Breathing comfortably. Denies any chest pain. No fever or chills, no cough, no phlegm production. Wore the BiPAP support very briefly last evening, otherwise has been off BiPAP support and on a few liters of supplemental oxygen overnight. Today's chest x-ray shows low lung volumes, and bibasilar opacities, was subsegmental atelectasis in the right lower lobe, and small to moderate-sized left pleural effusion without significant change compared to previous exam. No new labs today. She remains on her home dose Eliquis. She is on breathing treatments. Her abdominal distention and bilateral lower extremity edema has significantly improved. On 01/28/2021 patient seen in follow-up on selective care unit. She is awake and alert in no acute distress, she remains on Lasix 40 mg every 12 hours, and Zaroxolyn, and she is maintaining a negative fluid balance, she is in -664 not fluid balance over the last 24 hours. No edema in lower extremities, abdominal distention and anasarca have significantly improved, she is breathing much more comfortably, she has gotten up out of bed and set up in the chair, but still spends quite a bit of time in bed. No complaints of chest pain, lung sounds reveal fine bibasilar crackles. His labs have been reviewed, with little confused 3.4, hemoglobin is 9.2, potassium is 4.4, chloride 89, CO2 is 42, BUN is 51, creatinine is 2.12. Patient remains in sinus mechanism, she is on oral anticoagulation the form of Eliquis, she remains on nebulized bronchodilators. Kaylin on oral amiodarone 200 mg once daily for rate control, she is on metoprolol 50 mg 3 times a day. Is being followed by cardiology. On 01/29/2021 patient seen in follow-up on selective care unit, she sits up in the recliner, in no acute distress, she maintains a negative fluid balance, -800 that fluid balance over the last 24 hours, she has been switched over to oral Bumex 2 mg in the morning and 1 mg in the afternoon in addition to Zaroxolyn 2.5 mg daily. Cardiology is following and managing her diuretics. She also remains on intake limitation in the form of Eliquis, she is on oral amiodarone. She is breathing comfortably, she states she is feeling better, although she did have an episode of shortness of breath earlier today. She had an ultrasound of the chest completed, and markings were done on the right lung. She is currently on 3 L of oxygen a pulse ox of 97%, lung sounds reveal diminished breath sounds and crackles over bilateral bases. His evaluation of 01/30/2021, Laury is doing well. No specific complaints. She has a right-sided pleural effusion which is quite large. Ultrasound markings of been obtained. Eliquis is currently on hold and the patient is going to undergo a thoracentesis. Currently she is on a combination of diuretics. She is on Zaroxolyn and Bumex. No new complaints otherwise for now. She is on oxygen at 3 L per minute nasal cannula. Eliquis is been on hold and a bedside thoracentesis was done and a total of 150 mL of fluid was aspirated from the right lung without any complication. A follow-up chest x-ray is to be done. She is hemodynamically stable. Electrolytes are still pending for now. The most recent creatinine is at 2.2. Objective - Vital Signs Vital signs: Vital Signs Temp 98.1 F 01/30/21 00:00 Pulse 69 01/30/21 08:00 Resp 19 01/30/21 08:00 BP 152/72 01/30/21 08:00 Pulse Ox 99 01/30/21 08:00 Intake & Output 01/29/21 01/30/21 01/30/21 18:59 06:59 18:59 Intake Total 540 120 360 Output Total 200 Balance 540 -80 360 Weight 85.3 kg Intake: Oral 540 120 360 Output: Urine 200 Other: # Voids 1 - Exam GENERAL EXAM: Alert, very pleasant, 60-year-old -[place] female, on 3 L of oxygen resting in bed, comfortable in no apparent distress. HEAD: Normocephalic/atraumatic. EYES: Normal reaction of pupils, equal size. Conjunctiva pink, sclera white. NOSE: Clear with pink turbinates. THROAT: No erythema or exudates. NECK: No masses, no JVD, no thyroid enlargement, no adenopathy. CHEST: No chest wall deformity. Symmetrical expansion. LUNGS: Equal air entry with bibasilar crackles, diminished breath sounds at the bases CVS: Regular rate and rhythm, normal S1 and S2, no gallops, no murmurs, no rubs ABDOMEN: Soft, nontender. No hepatosplenomegaly, normal bowel sounds, no guarding or rigidity. EXTREMITIES: No clubbing, no edema, no cyanosis, 2+ pulses and upper and lower extremities. MUSCULOSKELETAL: Muscle strength and tone normal. SPINE: No scoliosis or deformity SKIN: No rashes CENTRAL NERVOUS SYSTEM: Alert and oriented -3. No focal deficits, tone is normal in all 4 extremities. PSYCHIATRIC: Alert and oriented -3. Appropriate affect. Intact judgment and insight. - Labs CBC & Chem 7: 01/28/21 07:22 01/29/21 08:14 Labs: Abnormal Lab Results - Last 24 Hours (Table) 01/29/21 01/29/21 Range/Units 16:57 20:25 POC Glucose (mg/dL) 146 H 153 H (75-99) mg/dL Assessment and Plan Plan: #1. Acute hypoxic respiratory failure related to acute exacerbation of diasto lic CHF, severe anasarca, and recurrent pleural effusions is another thoracentesis was done today and the total of 150 mL of pleural fluid aspirated from the right lung. The amount of fluid was quite low compared to earlier procedures. #2. Recent hospitalization at [facility] from 01/04/2021 through 01/10/2021 for acute exacerbation of CHF with diastolic dysfunction #3. Recent admission to [facility] in early December for cardioversion, and a left-sided thoracentesis #4. Chronic atrial fibrillation on Eliquis #5. COPD, on home oxygen at 3 L #6. Hypertension #7. Hyperlipidemia #8. Bilateral pleural effusions, with previous history of thoracentesis on the left at the [facility] in December 2020 and right-sided thoracentesis on 01/07/2021 with removal of 900 mL of fluid and left-sided thoracentesis on 01/08/2021 with removal of 650 mL of fluid by Dr. Aguilar. Right-sided thoracentesis pleural fluid was transudate, however the pleural fluid cultures are positive for pseudomonas without clear evidence of infection, and patient has completed a course of ciprofloxacin . Repeat thoracentesis on the right revealed only 150 mL of pleural fluid. #9. Diabetes mellitus type 2 with diabetic neuropathy and diabetic retinopathy #10. Depression #11. Chronic diastolic CHF with severe concentric LVH, pulmonary hypertension #12. History of sleep apnea syndrome #13. Chronic kidney disease stage III Plan: Repeat a chest x-ray Restart anticoagulation Monitor renal function and obtain a creatinine from today Continue Bumex and Zaroxolyn Wean down FiO2 as tolerated to maintain a saturation above 90% We'll follow
--- NOTE | 2021-01-30 11:50 | P.PCN ---
Date of Procedure: 01/30/21 Operative Findings: Preoperative Diagnosis: Right-sided pleural effusion Postoperative Diagnosis: Right-sided pleural effusion Procedure(s) Performed: Thoracentesis Anesthesia: local Surgeon: Nancy Aguilar Estimated Blood Loss (ml): 0 Pathology: other Condition: stable Disposition: ICU Operative Findings: A time out was performed and the chest x-ray was reviewed, the appropriate side was confirmed and marked. My hands were washed immediately prior to the procedure. I wore a surgical cap, mask with protective eyewear, sterile gown and sterile gloves throughout the procedure. The patient was prepped and draped in a sterile manner using chlorhexidine scrub after the appropriate level was percussed and confirmed by ultrasound. 1% lidocaine was used to anesthesize the skin, subcutaneous tissue, superior aspect of the rib periosteum and parietal pleura. A finder needle was then introduced over the superior aspect of the rib to locate the pleural fluid; 2colored fluid was aspirated at a depth of approximately 2 cm. A 10-blade scalpel was used to cristóbal the skin at the insertion site. The [id number] needle was then introduced through the skin incision into the pleural space using negative aspiration pressure and the red colometric indicator to confirm appropriate positioning of the needle. The thoracentesis catheter was then threaded without difficulty. 150ml of turbid colored fluid was removed without difficulty. The catheter was then removed. No immediate complications were noted during the procedure. A post-procedure chest x-ray is pending at the time of this note. The fluid will be sent for studies. Estimated blood loss is 0cc
[2021-01-30 12:01] LABS: Glucose,Whole Blood 205 mg/dL (75-99)
--- NOTE | 2021-01-30 13:04 | P.PN ---
Subjective 60-year-old female who was admitted to the emergency department with complaints of progressively worsening shortness of breath over the last few days which suddenly became worse this morning. She has a history of hypertension, hyperlipidemia and diabetes. History of a cardiac catheterization in 2016 with no evidence of obstructive CAD at that time. She'll history of chronic tobacco use and has very recently stopped smoking. She's had recent multiple admissions to the hospital. She was admitted to [facility] and underwent t horacentesis and cardioversion. She was subsequently readmitted here last month with tachycardia and shortness of breath was noted to be in atrial fibrillation with rapid ventricular response. She was initiated on amiodarone at that time. She also underwent thoracentesis during her previous admission. She and echocardiogram done in October of this year and at that time her ejection fraction was 55-60% with severe pulmonary hypertension measuring 69 mmHg. Over the last few days she's been more short of breath with some tightness in her chest and pressure as well as some abdominal bloating. She denies any clear complaints of orthopnea but does wake up feeling short of breath through the night. Laboratory values on admission showed hemoglobin 9.4, BUN 33, creatinine 1.7, troponin 0.043 and NT proBNP of 13,900 which was previously over 30,000. EKG on admission showed sinus rhythm with prolonged QT interval. Chest x-ray impression interval marked progression of diffuse bilateral pleural parenchymal changes correlate for CHF with pulmonary edema versus diffuse pneumonia of her review of the films this patient has left-sided pleural effusion. She has been initiated on IV Lasix and BiPAP. Upon examination patient appears comfortable. She is able to speak in full sentences but does have some mild dyspnea with talking. She has very trace edema and doesn't feel that that is worse than usual. Denies any chest pain but does feel some pressure in her chest with breathing. Denies any dizziness or lightheadedness. Denies any palpitations or feeling her heart racing. Echocardiogram on 10/2020 revealed EF 55-60%, severe concentric left ventricular hypertrophy, paradoxical motion of the right ventricular septum consistent with right ventricular overload and/or elevated right ventricular end diastolic pressure moderate tricuspid regurgitation, severe pulmonary hypertension with RVSP 69mmHg. 01/30/2021 Pt seen and examined laying in bed with head slightly propped up. She states she continues to feel short of breath. She is scheduled to undergo a thoracentesis per pulmonary. Blood pressure 152/72 heart rate 69 afebrile and maintaining oxygen saturation on nasal cannula. GENERAL: Well-appearing, well-nourished and in no acute distress. NECK: Supple with bilateral JVD. LUNGS: Course bibasilar rales, no wheezes or rhonchi. Respirations equal and unlabored. Diminished bilaterally, right greater than left. HEART: Regular rate and rhythm, systolic murmur noted. S1 and S2 heard. EXTREMITIES: Normal range of motion, trace bilateral lower extremity pitting edema. No clubbing or cyanosis. Peripheral pulses intact. ASSESSMENT Atrial tachycardia, currently maintaining sinus mechanism Acute on chronic diastolic heart failure Hypertension Diabetes mellitus Dyslipidemia Proximal atrial fibrillation on long-term anticoagulation Chronic kidney disease Severe concentric left ventricular hypertrophy, Concern of possible amyloidosis with low voltage on EKG and significant LVH on echo s/p right sided thoracentesis 01/07 with 900mL removed s/p left sided thoracentesis 01/08 with 650mL removed Pulmonary hypertension likely from left-sided heart failure PLAN Proceed with thoracentesis per pulmonary. Encourage incentive spirometer use. Further recommendations to follow based on clinical course. Nurse Practitioner note has been reviewed, I agree with a documented findings and plan of care. Patient was seen and examined. Objective - Vital Signs Vital signs: Vital Signs Temp 98.1 F 01/30/21 00:00 Pulse 69 01/30/21 08:00 Resp 19 01/30/21 08:00 BP 152/72 01/30/21 08:00 Pulse Ox 99 01/30/21 08:00 Intake & Output 01/29/21 01/30/21 01/30/21 18:59 06:59 18:59 Intake Total 540 120 360 Output Total 200 Balance 540 -80 360 Weight 85.3 kg Intake: Oral 540 120 360 Output: Urine 200 Other: # Voids 1 - Labs CBC & Chem 7: 01/28/21 07:22 01/29/21 08:14 Labs: Abnormal Lab Results - Last 24 Hours (Table) 01/29/21 01/29/21 01/30/21 Range/Units 16:57 20:25 12:00 POC Glucose (mg/dL) 146 H 153 H 205 H (75-99) mg/dL
[2021-01-30] MEDS: HYDROcodone/APAP 10-325MG 1 EACH TAB PO PRN (13:11)
[2021-01-30] MEDS ORDERED: HYDROmorphone 1 MG/ML 1 ML SYRINGE IVP STA (14:01)
--- NOTE | 2021-01-30 14:03 | XR ---
EXAMINATION TYPE: XR chest 1V portable DATE OF EXAM: 01/30/2021 COMPARISON: 01/27/2021 HISTORY: Shortness of breath FINDINGS: There are bilateral pleural effusions with cardiomegaly and bibasilar infiltrate. There is a diffuse interstitial pattern. No sizable pneumothorax postthoracentesis. Chronic changes involving the right shoulder noted. IMPRESSION: 1. Diffuse pleural-parenchymal changes no sizable pneumothorax.
--- NOTE | 2021-01-30 14:28 | P.PN ---
Subjective Progress Note Date: 01/30/21 HISTORY OF PRESENT ILLNESS This is a 60-year-old female patient at [facility] with past medical history significant for COPD, diabetes mellitus type 2, gastroesophageal reflux disease, hypertension, hyperlipidemia, generalized osteoarthritis, remote history of tobacco use and dependence. Patient was hospitalized recently at [facility] for respiratory failure found to have left-sided pleural effusion thoracentesis of 800 mL was done also patient ended up going for cardioversion for chronic A. fib she was sent home after been in for 5 days. Patient was rehospitalized at [facility] between 723 to 01/10/2021 for A. fib with RVR, respiratory failure with non-STEMI and CHF exacerbation. Patient was seen cardiology and pulmonary done well she was kept on BiPAP for a good part of her hospitalization at the time. Patient was kept on heavy doses o f IV diuretics. On 01/08: Patient had thoracentesis of the left side for 650 mL was mostly transudate cytology was negative for CVA. With her symptoms been well controlled time patient was sent home on Bumex 2 mg daily along with ciprofloxacin 500 mg twice a day for 7 days was to be kept on Eliquis along with metoprolol titrate 50 mg 3 times a day which kept her pulse rate well controlled. 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 Patient ended up coming to the emergency department require to go on BiPAP for the whole time after 2 or 3 round of respiratory treatment along with titrating her O2 on BiPAP Patient Started Getting Slightly Better. Patient Was Giving to Dose of IV Diuretics Which Diabetes Quite but at the Time. Chest X-Ray Showed Sign and Symptom of Congestive Heart Failure Also Chest X-Ray Showed? Off Infiltrate in the Base Which Has Not Been Clear Well from Her Last Hospitalization. Patient Be Started on IV Antibiotics besides Steroid and BiPAP We'll Consult Cardiology and Pulmonary. Her Troponin Was Mildly Elevated Patient Will Be Diagnosed with Non-ST NH till Proven Otherwise. Surprisingly her kidney function is much better than last time with creatinine 1.7 and GFR is running at 37. BNP was very high at 13 900 patient will be continue on have eaten diuretics IV. 01/25: Repeat chest x-ray reveals improving right lower lobe infiltrate. Consolidation remains present. [place] for pneumonia. Moderate left pleural effusion. Cardiomegaly. Patient has been rechecked by cardiology and IV Lasix decreased as well as hydralazine was increased. Pulmonary medicine is following, no plans for thoracentesis. Patient is seen today on the cardiac stepdown unit. She is resting in bed and appears to be comfortable. Patient is afebrile, heart rate in the 60s and 70s, blood pressure 168/82, pulse ox 90% on 4 L nasal cannula. Blood blood glucose this morning was 44 01/26: She states that she is not feeling well today. Areas she is complaining of abdominal bloating and gas and difficulty eating. She's been instructed to avoid pop. CAT scan of the abdomen and pelvis without contrast has been ordered for today. Patient has been afebrile, heart rate 63, blood pressure 108/52, pulse ox 98% on 4 L nasal cannula. WBC 3.1, hemoglobin 9, platelet count 383. Sodium 138, potassium 4.8, chloride 94, CO2 39, BUN 41 creatinine 1.86. Liver function tests are normal. Blood sugars this morning in the 60s followed by 84. Weight is down 2 kg. 01/27: CAT scan of the abdomen and pelvis revealed severe anasarca and body wall edema persists. Cardiomegaly with moderate right pleural effusion and small left effusions. Trace perihepatic ascites. Findings suggest third spacing and fluid overload state. Prominent patchy consolidation and atelectasis in the lower lungs. Correlate to exclude underlying pneumonia. Moderate stool burden. Left-sided colonic diverticulosis without acute diverticulitis. Circumferential bladder wall thickening. Correlate to exclude cystitis. Patient is complaining of constipation. MiraLAX 1 dose and Senokot scheduled added. Patient instructed to increase protein intake, Ensure added. Urinalysis ordered. Cardiology is concern for cardiac amyloidosis. Patient will be continued on IV Lasix. 01/28: Patient has no significant cough today, however she remains in bed, in no shortness of breath, however does not ambulate as much, patient has no nausea no vomiting, ultrasound of the chest was performed, showing a pocket of 8 cm left side, and 12 cm right side, pleural effusion. Pulmonary still has to make recommendations for thoracentesis, as per the recommendation today, no thoracentesis planned, patient is not on any antibiotic, she had Pseudomonas during the last admission without any current evidence of pneumonia, to check for pro-calcitonin, serum immunofixation, and protein electrophoresis IZZY to be requested patient is on Eliquis this need to be held should the decision be made for thoracentesis, pulse ox at 93% 3 L T-max 98 poi 01/29: Patient is scheduled for thoracentesis today, right side, she does have shortness of breath and pain with inspiration right side, there is a 12cm pocket noted on the side by ultrasound, pro-calcitonin is higher and is normal at 0.22, currently not on any antibiotics yet, she is on Bumex 2 mg morning and 1 mg the afternoon, and lost along with Zaroxolyn 2.5 mg every Thursday. Pleural effusion will be sent for culture as well, she did have Pseudomonas in the past, these would be decided based from current examination for an exudate, pulmonary is following closely 18: Patient had thoracentesis of the right side few hrs ago, about 300-400 mL obtained, with a pocket of, patient complains of right sided lower rib cage pain, 9 out of 10, repeat x-ray shows no pneumothorax, patient's in the nonrebreather, 15 L O2 pulse ox at 75 to 89%, the fingers are cold for the pulse oximetry, this is getting rechecked, with ear probe pulse, patient has this lower rib cage pain yesterday, prior to thoracentesis as well. No diarrhea no fever, Dilaudid was given, patient is drowsy today, the patient provides appropriate answers stat CT ordered, nurse at bedside, nurse notified Dr. Aguilar stat, no wheezing on exam today, patient slightly tachypneic, slightly labored breathing, RR approx 18 chest x-ray reviewed today, and no sizable pneumothorax. good air entry, heart rate regular. This is new change compared to previous exam yesterday, workup and treatment is in progress, with stat eval by pulmonary, nurse now notifying dr Aguilar. she most likely will be transfered to icu for acute hypoxemic resp failure. Objective - Vital Signs Vital signs: Vital Signs Temp 98.1 F 01/30/21 00:00 Pulse 88 01/30/21 12:40 Resp 19 01/30/21 12:40 BP 118/75 01/30/21 12:40 Pulse Ox 99 01/30/21 12:40 Intake & Output 01/29/21 01/30/21 01/30/21 18:59 06:59 18:59 Intake Total 540 120 360 Output Total 200 Balance 540 -80 360 Weight 85.3 kg Intake: Oral 540 120 360 Output: Urine 200 Other: # Voids 1 - Constitutional General appearance: Present: cooperative, no acute distress - EENT Eyes: Present: PERRLA, dentition normal, normal appearance ENT: Present: NA/AT, normal oropharynx - Neck Carotids: bilateral: upstroke normal, negative: upstroke diminished, upstroke bounding - Respiratory Respiratory: bilateral: CTA, negative: diminished, dullness - Cardiovascular Rhythm: regular Heart sounds: normal: S1, S2 - Gastrointestinal General gastrointestinal: Present: normal bowel sounds, soft - Integumentary Integumentary: Present: normal, normal turgor - Neurologic Neurologic: Present: CNII-XII intact - Musculoskeletal Musculoskeletal: Present: strength equal bilaterally - Labs CBC & Chem 7: 01/30/21 15:25 01/30/21 15:25 Labs: Abnormal Lab Results - Last 24 Hours (Table) 01/29/21 01/29/21 01/30/21 Range/Units 16:57 20:25 12:00 POC Glucose (mg/dL) 146 H 153 H 205 H (75-99) mg/dL Assessment and Plan Plan: ASSESSMENT AND PLAN 1. Acute on chronic respiratory failure secondary to acute diastolic heart failure pleural effusion. plan for thoracentesis on 01/29 2021 per pulmonary patient is on 3 L O2 nasal cannula, and is on eliquis, 2. Acute on chronic diastolic heart failure area and continue IV Lasix, monitor intake and output cardiology consultation appreciated. .3 Hypoxemic respiratory failure and after thoracentesis, initial x-ray did not show any pneumothorax, stat CT ordered, with stat call to Dr. Aguilar secondary to a 15 L nonrebreather mask hypoxemia 3. Acute kidney injury. 4. Troponin elevation likely due to acute on chronic kidney failure. Cardiology consult appreciated. 5. COPD without exacerbation. albuterol/ipratropium nebulizer. 6. A. fib with RVR, paroxysmal atrial fibrillation. Continue metoprolol and amiodarone will continue Eliquis as well. 7. Hypertension. Continue Lopressor 50 mg 3 times daily, hydralazine 50 mg 3 times daily. 8. Diabetes mellitus type 2 uncontrolled with hypoglycemia. Continue NovoLog scale before meals and at bedtime. Hold Actos 30 mg daily. 9. Diabetic neuropathy. 10. Recurrent depression. 11. HYperlipidemia: Continue patient on Lipitor 40 mg a day. 12. Chronic pain syndrome: Has been on hydrocodone continue medication. 13. Possible cardiac amyloidosis. Cardiology is following and may consider right-sided heart catheterization. Check for serum protein electrophoresis, and immunofixation 14. DVT prophylaxis: Patient remain on Eliquis. 15. GI prophylaxis: Patient be on Pepcid 20 mg daily. CODE STATUS: Full code DISCHARGE PLAN Home with [facility].
[2021-01-30] MEDS ORDERED: NALOXONE 0.4 MG/ML 1 ML VIAL ONE (15:05)
[2021-01-30] MEDS ORDERED: SODIUM BICARB 8.4% 50 ML SYR (1 MEQ/ML) ONE (15:10)
[2021-01-30] MEDS ORDERED: CALCIUM GLUCONATE 1 GM/10 ML VIAL ONE (15:10)
[2021-01-30] MEDS ORDERED: EPINEPHrine 10 ML SYRINGE (0.1 MG/ML) ONE (15:10)
[2021-01-30 15:16] LABS: Glucose,Whole Blood 89 mg/dL (75-99)
[2021-01-30 15:35] LABS: Anisocytosis Slight; HCT 25.5 % (34.0-46.0); Hypochromasia Marked; MCH 25.1 pg (25.0-35.0); MCHC 28.2 g/dL (31.0-37.0); Mean Platelet Volume 8.3; Platelet Count 272 k/uL (150-450); Poikilocytosis Slight; RBC 2.87 m/uL (3.80-5.40); RDW 18.7 % (11.5-15.5); WBC 8.7 k/uL (3.8-10.6)
[2021-01-30 15:46] LABS: Albumin 2.8 g/dL (3.5-5.0); Calcium 10.1 mg/dL (8.4-10.2); Potassium 4.9 mmol/L (3.5-5.1); Total Bilirubin 0.2 mg/dL (0.2-1.3); Total Protein 5.5 g/dL (6.3-8.2)
[2021-01-30 15:52] LABS: INR 1.4 (<1.2); Partial Thromboplastin Time 21.5 sec (22.0-30.0); Prothrombin Time 13.9 sec (9.0-12.0)
[2021-01-30 15:55] LABS: HGB 7.2 gm/dL (11.4-16.0)
--- NOTE | 2021-01-30 16:11 | P.EN ---
CODE BLUE Indication: PEA Arrived on Scene to find: CPR in progress with Dr. Aguilar running the code Initial Rhythm: PEA Code Course: Total of 32 minutes. Patient conitnued to be in PEA. She received a total of epi X 11, multiple doses of calcium gluconate, and sodium bicarb. Her glucose was in the normal range on check, she was normothermic, she had color change on the capnogrqphy, she had equal breath sounds. Stat labs drawn and did not result at 30 minutes of down time. Patient pronounced at 1542. Dr. Aguilar intubated and placed a central in line for the patient. Total Down Time: 32 Absent pulse, respirations, cardiac rhythm, cool to the touch. Notified: Dr. Palafox, Dr Aguilar and family at bedside.
--- NOTE | 2021-01-30 16:30 | P.PN ---
Progress Note - Text Progress Note Date: 01/30/21 I attended on this patient due to an acute event that occurred at around 3 PM afternoon. Apparently for thoracentesis, the patient is been some pain along the right chest and the patient was given Dilaudid IV. This made her quite lethargic. At the time of my arrival for evaluation, the patient was quite obtunded on a BiPAP . She was given a dose of Narcan. No significant recovery in her mental status. Subsequently, the patient was noted to be quite hypoxic and bradycardic and a CODE BLUE was called. The patient had a pulse initially and ultimately she lost her pulse. CPR was initiated. The patient was intubated. I intubated the patient. I also inserted today triple-lumen cath eter for IV access. Please refer to the code sheets. Unfortunately, throughout the course progresses, the patient did not regain her pulse or blood pressure. Her breath sounds were equal and bilateral post intubation. She had adequate intubation without any major difficulties. Labs were noted. The laboratory obtained were during the code and he did not show any significant abnormalities. Renal function was stable with a creatinine of 2.1. No significant hyperkalemia. As such, because for cardiaopulmonary arrest Is not clear. I did not anticipate any post thoracentesis complications as the pleural fluid was aspirated was nonbloody and the patient a chest x-ray showing no evidence of pneumothorax. There was some bilateral pleural effusion and bilateral atelectatic changes as noted earlier. Family was informed. Several family members arrive to the scene. I had a conversation with the daughter, explaining the situation. Primary care physician will be informed about the mortality.
--- NOTE | 2021-01-30 16:34 | P.PCN ---
Date of Procedure: 01/30/21 Preoperative Diagnosis: Acute cardiopulmonary arrest Postoperative Diagnosis: Acute cardiopulmonary arrest Procedure(s) Performed: Intubation nInsertion of a triple-lumen catheter Anesthesia: none Surgeon: Nancy Aguilar Estimated Blood Loss (ml): 0 Pathology: none sent Condition: critical Disposition: other Operative Findings: Intubation. Indication: Respiratory compromise. Acute cardio pulmonary arrest. The procedure was done under emergency situation. A time-out was completed verifying correct patient, procedure, site, positioning, and implant(s) or special equipment if applicable. The patient was positioned appropriately and a #8 endotracheal tube was placed under direct laryngoscopy. The tube was anchored at 22 cm at the teeth. Correct placement was confirmed by presence of bilateral breath sounds without air sounds in the abdomen on auscultation. An end-tidal CO2 monitor was also used to confirm tracheal placement of the ET tube. A chest x-ray was ordered to assess for pneumothorax and verify endotracheal tube placement. The patient tolerated the procedure well and there were no complications. Central line insertion Indication: Hemodynamic monitoring/Intravenous access. A time-out was completed verifying correct patient, procedure, site, positioning, and implant(s) or special equipment if applicable. The patient was placed in a dependent position appropriate for central line elliot cement based on the vein to be cannulated. The patients right groin was prepped and draped in sterile fashion. 1% Lidocaine was used to anesthetize the surrounding skin area. A triple lumen 9F Cordis catheter was introduced into the right common femoral vein using Seldinger technique. The catheter was threaded smoothly over the guide wire and appropriate blood return was obtained. Each lumen of the catheter was evacuated of air and flushed with sterile saline. The catheter was then sutured in place to the skin and a sterile dressing applied. Perfusion to the extremity distal to the point of catheter insertion was checked and found to be adequate. The patient tolerated the procedure well and there were no complications.
[2021-01-30 19:46] VITALS: RESP 12
[2021-01-30 19:50] VITALS: BP 122/69; PULSE 74
--- NOTE | 2021-02-04 06:43 | CDI ---
Documentation Clarification Form Date: 02/04/21 From: Michelle Jackson Admit Date: 01/24/2021 01:10:00 PM Patient Name: Laury Rinaldi Visit Number: [id number] Discharge Date: 01/30/2021 09:11:00 PM ATTENTION: The Clinical Documentation Specialists (CDI) and [facility] Coding Staff appreciate your assistance in clarifying documentation. Please respond to the clarification below the line at the bottom and electronically sign. The CDI & [facility] Coding staff will review the response and follow-up if needed. Please note: Queries are made part of the Legal Health Record. If you have any questions, please contact the author of this message via ITS. Dr. Laurie Palafox, Atrial Flutter is documented in Dr Dexter's PNs on 01/25 & 01/26. Additional clarification regarding the type of Atrial Flutter is requested. History/Risk factors: HTN w Diastolic CHF & Stage 3 CKD, Chronic hypoxia resp failure, recurrent major depression, DM Clinical Indicators: History of atrial flutter, anticoagulated with Eliquis per Dr Dexter's PNs. 01/24 EKG/telemetry: Normal: sinus rhythm. Prolonged QT. Vent rate 90 bpm, CT interval 164ms, QRS 86 ms, QT/QTc 402/491 ms Treatment: Eliquis 5 mg Tab PO BID Please clarify the type of Atrial Flutter, if known: [ ] Typical/Type I [ ] Atypical/Type II [ ] Other, please specify [ xxx ] Unable to determine MTDD
[2021-02-04 11:36] LABS: Gamma Globulin 1.27 g/dL (0.70-1.50)
== END 2021-01-30 21:11 | disposition expired ==
LOC: EC 10:15 → 3SCARD 13:10
PROVIDERS: ADMIT Internal Medicine Geriatric Medicine; ATTEND Internal Medicine Geriatric Medicine
PROC: 5A09357 Assistance with Respiratory Ventilation, Less than 24 Consecutive Hours, Continuous Positive Airway Pressure (ICD-10-PCS; 2021-01-24)
PROC: 0BH17EZ Insertion of Endotracheal Airway into Trachea, Via Natural or Artificial Opening (ICD-10-PCS; principal; 2021-01-30)
PROC: 06HM33Z Insertion of Infusion Device into Right Femoral Vein, Percutaneous Approach (ICD-10-PCS; principal; 2021-01-30)
PROC: 0W993ZZ Drainage of Right Pleural Cavity, Percutaneous Approach (ICD-10-PCS; 2021-01-30)
PROC: 5A12012 Performance of Cardiac Output, Single, Manual (ICD-10-PCS; 2021-01-30)
DX: I13.0 Hypertensive heart and chronic kidney disease with heart failure and stage 1 through stage 4 chronic kidney disease, or unspecified chronic kidney disease (principal); J96.21 Acute and chronic respiratory failure with hypoxia; I21.4 Non-ST elevation (NSTEMI) myocardial infarction; I50.33 Acute on chronic diastolic (congestive) heart failure; N17.9 Acute kidney failure, unspecified; J91.8 Pleural effusion in other conditions classified elsewhere; E85.4 Organ-limited amyloidosis; I48.92 Unspecified atrial flutter; I47.1 Supraventricular tachycardia; R18.8 Other ascites; F33.9 Major depressive disorder, recurrent, unspecified; J98.11 Atelectasis; E11.649 Type 2 diabetes mellitus with hypoglycemia without coma; E11.319 Type 2 diabetes mellitus with unspecified diabetic retinopathy without macular edema; I27.20 Pulmonary hypertension, unspecified; I43 Cardiomyopathy in diseases classified elsewhere; E11.40 Type 2 diabetes mellitus with diabetic neuropathy, unspecified; E11.22 Type 2 diabetes mellitus with diabetic chronic kidney disease; J44.9 Chronic obstructive pulmonary disease, unspecified; N18.30 Chronic kidney disease, stage 3 unspecified; I48.0 Paroxysmal atrial fibrillation; Z79.4 Long term (current) use of insulin; I46.2 Cardiac arrest due to underlying cardiac condition; R00.1 Bradycardia, unspecified; K21.9 Gastro-esophageal reflux disease without esophagitis; E78.5 Hyperlipidemia, unspecified; M15.9 Polyosteoarthritis, unspecified; M43.00 Spondylolysis, site unspecified; G89.4 Chronic pain syndrome; K57.30 Diverticulosis of large intestine without perforation or abscess without bleeding; R63.3 Feeding difficulties; G47.33 Obstructive sleep apnea (adult) (pediatric); K59.00 Constipation, unspecified; I07.1 Rheumatic tricuspid insufficiency; F17.210 Nicotine dependence, cigarettes, uncomplicated; Z71.6 Tobacco abuse counseling; Z99.81 Dependence on supplemental oxygen; Z79.01 Long term (current) use of anticoagulants; Z79.82 Long term (current) use of aspirin; Z79.899 Other long term (current) drug therapy; Z60.2 Problems related to living alone; Z90.710 Acquired absence of both cervix and uterus; Z87.42 Personal history of other diseases of the female genital tract; Z87.39 Personal history of other diseases of the musculoskeletal system and connective tissue; Z98.890 Other specified postprocedural states; Z88.0 Allergy status to penicillin; Z88.8 Allergy status to other drugs, medicaments and biological substances; Z82.5 Family history of asthma and other chronic lower respiratory diseases; Z83.3 Family history of diabetes mellitus
CPT/HCPCS: 36415; 71045; 71046; 74176; 76604; 80048; 80053; 81001; 82550; 83036; 83605; 83735; 83880; 84100; 84132; 84145; 84165; 84443; 84484; 85025; 85027; 85610; 85730; 86038; 86334; 92950; 93005; 94640; 94660; 96374; 99291